=== PATIENT | male | born 1940 | race Caucasian/White ===

== ENCOUNTER 2023-09-14 19:15 | Inpatient (IN) | payer MEDICARE, SELFPAY ==
[2023-09-14 13:23] VITALS: BP 155/93
[2023-09-14 13:47] LABS: % Basophils 0.5 % (0-2); % Eosinophils 5.7 % (0-6); % Immature Granulocytes 0.2 % (0-0.5); % Lymphocytes 9.3 % (20.5-51.1); % Monocytes 6.3 % (1.7-9.3); Absolute Eosinophils 0.3 10^3/uL (0-0.7); Absolute Lymphocytes 0.4 10^3/uL (1.2-3.4); Absolute Monocytes 0.3 10^3/uL (0.1-0.6); Absolute Neutrophils 3.4 10^3/uL (1.4-6.5); Hemoglobin 8.4 g/dL (13.0-18.0); Mean Corp Hgb Conc. 32.3 g/dL (33.0-37.0); Mean Corpuscular Hgb 26.6 pg (27.0-31.0); Mean Corpuscular Volume 82.3 fL (80.0-94.0); Nucleated Red Blood Cells % 0 % (-); Red Blood Cell Count 3.16 10^6/uL (4.70-6.10); Red Cell Dist. Width 19.8 % (11.5-14.5); White Blood Cell Count 4.4 10^3/uL (4.8-10.8)
[2023-09-14 14:02] LABS: Platelet Count 75 10^3/uL (130-400)
[2023-09-14 14:06] LABS: ALT (SGPT) 22 U/L (0-50); AST (SGOT) 42 U/L (17-59); Albumin 3.6 g/dl (3.5-5.0); Alkaline Phosphatase 92 U/L (38-126); Blood Urea Nitrogen 83 mg/dl (9-20); Calcium 9.4 mg/dl (8.4-10.2); Carbon Dioxide 24 mmol/L (22-30); Chloride 104 mmol/L (98-107); Glucose 279 mg/dl (70-99); Potassium 4.8 mmol/L (3.5-5.1); Sodium 136 mmol/L (135-145); Total Bilirubin 0.8 mg/dl (0.2-1.3); eGFR 27.49
[2023-09-14 17:19] VITALS: BP 142/66
--- NOTE | 2023-09-14 17:27 | ED.GENMED ---
History of Present Illness
General
Chief Complaint: Weakness
Source: patient and spouse
Time Seen by Provider: 09/14/23 16:51
Travel History
Have you had any contact with someone who has COVID-19?: No
Do you have any symptoms of coronavirus? Fever > 100 degrees, chills, cough, shortness of breath, sore throat, loss of taste or smell, muscle aches, or headache?: No
History of Present Illness
History of Present Illness:
This patient is an 83-year-old male who states that he first noted yesterday afternoon that he cannot type on his phone because his right hand is not working well. He raises his right hand up and shows that he has difficulty extending at the wrist.
He denies numbness, tingling, focal weakness otherwise, chest pain, headache, neck pain, dyspnea, nausea, vomiting, or other complaints. Patient states that he has been eating and drinking as usual and denies other new complaints.
Past History
Past History
ED Past Medical History: CAD, HTN, Hypercholesterolemia, NIDDM, NV and Other (Arthritis, ulcerative colitis, chronic renal insufficiency, GI bleed)
ED Past Surgical History: Cardiac
Patient has exhibited threatening behavior?: No
Social History
Tobacco: Non-smoker
Alcohol: None
Drug: None
Personal:
Living: with family
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
Phy Exam
Physical Exam
Physical Exam:
GENERAL: Alert , in no apparent distress
EYE: pupils equal and reactive
NECK: Supple, no significant adenopathy.
ENT: o/p clr, mmm.
CARDIAC: Regular rate and rhythm .
LUNGS: Equal breath sounds bilaterally, no acute respiratory distress, fine rales noted
ABDOMEN: Soft, without focal tenderness, no r/g, no cvat
NEUROLOGICAL: Alert and oriented, no focal neuro deficits with the exception of right upper extremity radial nerve motor palsy AKA 'wrist drop', sensory intact
SKIN: Warm and dry, skin intact.
MUSCULOSKELETAL: Left-sided AKA, right lower extremity with 1-2+ lower extremity edema
PSYCH: Normal and appropriate interaction.
Course
Orders/Labs/Results
Orders:
Orders
09/14/23 13:25
CT Head W/o Iv Contrast Urgent
Comment:
Reason For Exam: right arm weakness x24hrs no pain
09/14/23 13:34
Complete Blood Count/With Diff Urgent
Comprehensive Metabolic Panel Urgent
09/14/23 17:27
0.9% Sodium Chloride 500 ml [Nss] 500 ml IV BOLUS
09/14/23 18:19
Splint [Braces/Immobilizers] As Directed
Type of Brace/Immobilizer: Splint
Other brace/immobilizer: velcro wrist
Location for Brace/Immobilizer: right wrist
Out of bed with brace/immobilizer: Yes
09/14/23 18:28
Admit/Transfer Patient As Directed
Co-Sign Provider:
Level of Care: Inpatient admission
Assign to:: Medical/Surgical
Physician / Group: payal carter
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
Expected length of stay greater than two midnights?: Yes
ELOS- Estimated Length of Stay in days: 4
I certify the patient meets the requirements for IP care: Yes
Code Status As Directed
Resuscitation Status: Full Code
09/14/23 18:38
NEPHROLOGY CONSULT Routine
Consulting Provider: Magda Dillon
Was physician already notified: Yes
Reason for consult: tamanna on ckd 3a
Abnormal Lab Results
09/14/23
13:34
WBC 4.4 L 10^3/uL
(4.8-10.8)
RBC 3.16 L 10^6/uL
(4.70-6.10)
Hgb 8.4 L g/dL
(13.0-18.0)
Hct 26.0 L %
(39.0-52.0)
MCH 26.6 L pg
(27.0-31.0)
MCHC 32.3 L g/dL
(33.0-37.0)
RDW 19.8 H %
(11.5-14.5)
Plt Count 75 L 10^3/uL
(130-400)
Absolute Lymphs (auto) 0.4 L 10^3/uL
(1.2-3.4)
Neutrophils % 78.0 H %
(42.2-75.2)
Lymphocytes % 9.3 L %
(20.5-51.1)
BUN 83 H mg/dl
(9-20)
Creatinine 2.3 H mg/dL
(0.7-1.3)
Glucose 279 H mg/dl
(70-99)
09/14/23 13:34
09/14/23 13:34
Vital Signs
Initial and Last Documented VS:
Initial Vital Signs
Temp Pulse Resp BP Pulse Ox
98.2 F 60 16 155/93 98
09/14/23 13:23 09/14/23 13:23 09/14/23 13:23 09/14/23 13:23 09/14/23 13:23
Last Documented Vital Signs
Temp Pulse Resp BP Pulse Ox
98.2 F 60 16 142/66 99
09/14/23 13:23 09/14/23 18:45 09/14/23 18:45 09/14/23 17:19 09/14/23 17:30
*Critical Care Note
Total Time (30-74mins, 75-104mins- exclusive of procedures): Not Applicable
Update Note
Update Note:
Patient presents to the Emergency Department with ___right wrist drop
Number and Complexity of Problems Addressed at the Encounter
� Chronic conditions affecting care: Chronic kidney disease, heart failure, diabetes, CAD
� Acute Exacerbation and/or Progression of Chronic Illness:
� Differential Diagnosis includes: But not limited to neuropathy, stroke, compression injury, etc.
Amount and/or Complexity of Data to be Reviewed and Analyzed
� I performed an independent evaluation of and my interpretation is:
EKG:
CT: Read by radiology NAD
Xrays:
Laboratory Studies: New mild thrombocytopenia, new renal insufficiency with a GFR decreased from baseline of 55-28 today
Other:
� Review of other/old records reveals: Patient's most recent hospitalization reviewed by me, left AKA performed at that time. Prior renal studies reviewed.
� Clinical information was obtained by an independent historian: who is at bedside
� Prescriptions/Medications Considered but not given:
� Further testing considered but not performed:
Risk of Complications and/or Morbidity or Mortality of Patient Management
� Social determinants of health affecting care:
� Discussion with other providers (PCP, Hospitalists, Consultants, etc):
� Escalation of care including admission/observation vs risk of discharge considered:
ED Attending Note
-
Portions of this chart may have been created with voice recognition software.� Occasional wrong word or��sound alike� substitutions may have occurred due to the inherent limitations of voice recognition software.
Discharge Plan
Departure
Patient Disposition: Admit
Date of Disposition: 09/14/23
Time of Disposition: 18:03
Admit to: Med/Surg
Presentation/result/management discussed w/ accepting MD/DO: Hospitalist
Condition: Fair
Discharge Problem:
Acute renal insufficiency
Prescriptions:
No Action
glimepiride 2 MG tablet
2 mg PO DAILY
pantoprazole 40 mg Tablet,Delayed Release (Dr/Ec)
40 mg PO DAILY
atorvastatin 80 MG tablet
80 mg PO QPM
Eliquis 5 MG tablet
5 mg PO BID
Folbic 2.5-25-2 mg Tablet
1 tab PO DAILY
carvedilol 3.125 mg Tablet
3.125 mg PO BID Qty: 60 0RF
amiodarone 200 mg tablet
200 mg PO DAILY
multivitamin Tablet
1 tab PO DAILY
insulin glargine [Lantus U-100 Insulin] 100 unit/mL Solution
15 unit SC DAILY@2029
mirtazapine 30 mg tablet
30 mg PO DAILY@2029
acetaminophen 325 mg Tablet
650 mg PO Q4H PRN (Reason: mild pain/fever)
bisacodyl 10 mg Suppository
10 mg ID DAILY PRN (Reason: no BM or MOM/lactulose ineffective)
bumetanide 1 mg Tablet
1 mg PO DAILY
fluticasone propionate 50 mcg/actuation [place],Suspension
1 spray INTRANASAL QPM
insulin lispro [Humalog KwikPen Insulin] 100 unit/mL Insulin Pen
0 - 12 sliding scale dose SC TID@0730,1230,1730
Rx Instructions:
if 71-150= 0 units; 151-200= 2 units; 201-250= 4 units; 251-300= 6 units; 301-350= 8 units; 351-400= 10 units; >400=12 units, call MD
pregabalin [Lyrica] 75 mg Capsule
75 mg PO TID
lactulose 20 gram/30 mL Solution
20 g PO HS PRN (Reason: Constipation)
naloxone [Narcan] 4 mg/actuation [place],Non-Aerosol
4 mg INTRANASAL Q2M PRN (Reason: constricted pupils,loss of consc,slow breathing)
fentanyl 25 mcg/hr patch 72 hour
1 patch transdermal Q72H
Patient Comments:
qpm
azathioprine 75 mg Tablet
75 mg PO DAILY
Referrals:
Shaquille Mata MD [Family Provider] -
Interventions
Interventions:
*Risk Screen - Suicide Last Done: 09/14/23 18:50
*General Assessment Last Done: 09/14/23 18:50
*Neglect/Abuse Screening Last Done: 09/14/23 18:50
ED- Fall Risk Assessment Last Done: 09/14/23 17:00
*ED COVID-19 Vaccine History Last Done: 09/14/23 13:23
ED- Cardiac Assessment Last Done: 09/14/23 17:00
ED- Neurological Assessment Last Done: 09/14/23 17:00
ED- Pulmonary Assessment Last Done: 09/14/23 17:00
Discharge Date and Time
Print Language: GUINEAN
--- NOTE | 2023-09-14 17:48 | HPS.HSE ---
Addendum entered and electronically signed by Itz Yusuf MD 09/14/23 18:43:
I saw and examined the patient.
The AUTOMOTIVE CONSULTANT or PA's note was reviewed and I agree with the note.
Comment: Plan of care discussed and will treat as acute kidney injury on chronic kidney disease presumptively in setting of possible hypovolemia from loop diuretic which will be held with also will hold Lyrica in the short-term and reduce dosing of
Eliquis during acute phase and glimepiride will await consult with nephrology/at this point suspect the right wrist drop possibly in relation to wound clinic time with resting extension and dependency with possible renal nerve injury will see how
this responds to treatment of his LENI I do not think there is a central cause either from his cervical spine or brain and we defer neurology input at this point. CT scan results of the head reviewed and discussed. Agree with placing on right wrist
splint. multiple comorbidities as outlined and discussed in treatment plan agreed on.
Original Note:
Family Physician
-
Family Physician: Shaquille Mata
Chief Complaint
-
Right wrist drop
History of Present Illness
83-year-old male from [facility] noticed yesterday 09/13/2023 but he was unable to type on his phone due to discoordination of his fingers. This morning he noticed he was unable to extend his wrist so he called his on the phone to visit
him. 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 He transfers with assist of 2 and slide board to wheelchair. He reports they have been repositioning him in bed last night he was lying on his left side apparently he slept 12
hours according to his wrist watch monitor. He was unsure if he slept on his actual wrist. He denies current pain in the wrist is able to lift both arms up to shoulder level as he is chronically limited with mobility bilateral shoulders. He is
right-handed. He denies any injury headache, blurred vision, numbness, tingling, chest pain, shortness of breath, cough, abdominal pain, nausea, vomiting, diarrhea, fever, chills
PMH paroxysmal A-fib S/P Medtronic PPM 04/16/2023 for tachybradycardia syndrome, hyponatremia, thrombocytopenia, anemia of chronic disease, chronic bilateral leg lymphedema, CAD /[place]? CABG, HLD, GERD, HX GI bleed, DM2, chronic LBBB, subdural hematoma
after mechanical fall, tiny old lacunar infarcts again noted in the right cindy and right Ginger/external capsule on ct head , chronic pain syndrome secondary to spinal stenosis on chronic opiate patch, anxiety, ulcerative colitis, chronic ambulatory
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
Medical History
Past Medical History
Past Medical History: Reports Other
Additional Past Medical History:
type II [place] secondary to demand ischemia 04/16/23
ASCVD
Paroxysmal Atrial Fibrillation
Ulcerative Colitis
DM-II
Chronic HFpEF
Chronic LE Lymphedema
CKD III
Hypertension
GERD
Bilateral Ankle Deformity (Acquired)
Past Surgical History: Reports Other
Additional Past Surgical History:
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
CABG x 4
PTCA with Stent x 2
DCCV
T&A
L EDILBERTO
Social History
Tobacco: Non-smoker
Alcohol: Occasional
Drug: None
Personal:
Living: Alf ([facility])
Employment: Retired
Family History
Family History: Not pertinent
Allergies / Home Medications
Allergies reflects when Allergies were last updated in [employer].
Home Medications with original date entered in [employer]
Allergy/Medication List:
Allergies
Allergy/AdvReac Type Severity Reaction Status Date / Time
Sulfa (Sulfonamide Allergy Hives Verified 09/14/23 13:25
Antibiotics)
sulfasalazine Allergy mother Verified 09/14/23 13:25
states
hives
Home Medications
glimepiride 2 mg tablet 2 mg PO DAILY diabetes 08/01/20
apixaban 5 mg tablet (Eliquis) 5 mg PO BID atrial fibrillation 03/30/23
atorvastatin 80 mg tablet 80 mg PO QPM High Cholesterol 03/30/23
pantoprazole 40 mg tablet,delayed release 40 mg PO DAILY Gastrointestinal Issue 03/30/23
folic acid-vit B6-vit B12 2.5 mg-25 mg-2 mg tablet (Folbic) 1 tab PO DAILY Supplement 04/16/23
carvedilol 3.125 mg tablet 3.125 mg PO BID #60 tabs 04/17/23
amiodarone 200 mg tablet 200 mg PO DAILY Arrhythmia 05/04/23
acetaminophen 325 mg tablet 650 mg PO Q4H PRN mild pain/fever 06/22/23
bisacodyl 10 mg rectal suppository 10 mg IA DAILY PRN no BM or MOM/lactulose ineffective 06/22/23
bumetanide 1 mg tablet 1 mg PO DAILY Fluid Retention/Swelling 06/22/23
fluticasone propionate 50 mcg/actuation nasal spray,suspension 1 spray intranasal QPM Allergies 06/22/23
insulin glargine 100 unit/mL subcutaneous solution (Lantus U-100 Insulin) 15 unit SC DAILY@2029 Diabetes 06/22/23
insulin lispro 100 unit/mL subcutaneous pen (Humalog KwikPen (U-100) Insulin) 0 - 12 sliding scale dose SC TID@0730,1230,1730 Diabetes 06/22/23
lactulose 20 gram/30 mL oral solution 20 g PO HS PRN Constipation 06/22/23
mirtazapine 30 mg tablet 30 mg PO DAILY@2030 Mental Health/Anxiety 06/22/23
multivitamin 1 tab PO DAILY Supplement 06/22/23
naloxone 4 mg/actuation nasal spray (Narcan) 4 mg intranasal Q2M PRN constricted pupils,loss of consc,slow breathing 06/22/23
pregabalin 75 mg capsule (Lyrica) 75 mg PO TID Pain 06/22/23
fentanyl 25 mcg/hr transdermal patch 1 patch transdermal Q72H Pain 06/24/23
azathioprine 75 mg tablet 75 mg PO DAILY 09/14/23
Review of Systems
-
History Source: Patient and Family (, daughter and son at bedside)
A 12 point ROS was completed and negative except as noted: Yes
Constitutional: Denies Fever, Weight Loss or Fatigue
EENT: Denies Sore Throat or Runny Nose
Respiratory: Denies Cough or Trouble Breathing
Cardiac: Denies Chest Pain, Diaphoresis, Palpitations or Syncope
Abdomen/GI: Denies Abdominal Pain, Nausea, Vomiting, Diarrhea or Constipated
: Denies Dysuria, Frequency, Flank Pain, Incontinence or Difficulty Voiding
Musculoskeletal: Reports Edema (Chronic +2 edema right lower extremity, left AKA); Denies Joint Pain
Skin: Denies Itching or Rash
Neurological: Reports Other (Right wrist drop); Denies Dizzy, Headache, Weakness or Numbness
Endocrine: Reports No Symptoms
Hematologic/Lymphatic: Reports No Symptoms
Psych: Reports Calm
Physical Exam
Vital Signs
Vital Signs
Temp Pulse Resp BP Pulse Ox
98.2 F 60 16 155/93 98
09/14/23 13:23 09/14/23 13:23 09/14/23 13:23 09/14/23 13:23 09/14/23 13:23
Physical Exam
General: Comfortable and Conversant; No Pain, Fever or Chills
HEENT: NormoCephalic, Anicteric, Moist mucous membranes, PERRLA, [place] Conjunctivae and No Ptosis
Respiratory: Clear; No Wheezes, Rales or Rhonchi
Cardiac: S1/S2, Peripheral Edema (Chronic right lower extremity +1-2 edema) and Other (Pacemaker present left chest wall); No Murmur, Rub or Gallop
Breast: Deferred by me
GI: Soft, Non Tender, Non Distended, Normal Bowel Sounds and No Hepatosplenomegaly
Rectal: Deferred by Provider
Genito-urinary: Deferred by me
Musculoskeletal: No Clubbing, No Cyanosis, Edema, Right Lower Extremity (Chronic +1-2) and Other (Left leg AKA, right wrist drop, chronic limited range of motion left and right arms to shoulder level, sensation intact to right arm, right hand); No
Edema, Left Upper Extremity or Edema, Right Upper Extremity
Skin: Warm, Dry and Other (Chronic right heel stage I ulcer with chronic offloading heel boot present on admission); No Rash
Neuro: AO x 3, Nonfocal/grossly intact, Cranial Nerves Intact and No Sensory Deficits; No Slurred Speech, Facial Droop or Tremors
Psych: Calm
Laboratory Results
-
09/14/23 13:34
09/14/23 13:34
Laboratory Results
Total Bilirubin 0.8 mg/dl (0.2-1.3) 09/14/23 13:34
AST 42 U/L (17-59) 09/14/23 13:34
ALT 22 U/L (0-50) 09/14/23 13:34
Alkaline Phosphatase 92 U/L (38-126) 09/14/23 13:34
Data Reviewed
-
CT Scan: Report Reviewed by me
Lab Data: Labs Reviewed by me
Impression/Plan
-
Impression/plan:
Admit to MedSurg
#Right radial nerve palsy unclear etiology
#chronic limited range of motion bilateral shoulders to shoulder level only
-Right wrist splint applied
-Consult PT/OT/case management
CT head: No acute intracranial abnormalities
Suspected tiny old lacunar infarcts again noted in the right cindy and right Ginger/external capsule
Diffuse cortical atrophy with nonspecific white matter changes
#LENI on CKD 3 A
#Hx orthostasis in Apr 2023 creat responded to IV fluids
Creat 2.3 /83 creat was1.3 June 29, 2023(CrCl approximately 43)
-Consult nephrology
-Hold Bumex
-IV NSS 500 cc given in ER
-Continue IV NSS 60 cc an hour x 1 L
-Reduce Eliquis to 2.5 mg twice daily
-BMP in a.m.
#Chronic stage I right heel ulcer
-Patient currently wearing offloading heel boot no open areas
#Chronic right lower extremity lymphedema
-Hold Bumex
#Hx CVA per CT head
#Hx subdural hematoma after mechanical fall
tiny old lacunar infarcts again noted in the right cindy and right Ginger/external capsule
-Continue statin, Eliquis at 2.5 mg twice daily
#Hx orthostatic hypotension/HTN
Monitor orthostatic vitals
-Continue carvedilol 3.125 mg p.o. twice daily with hold parameters
#Anemia of chronic disease�normocytic
Hgb 8.4 baseline appears 7.5-9.1
-No active bleeding
-Continue Folbic
#Acute on chronic thrombocytopenia
PLT 75 baseline appears 130-160 June 2023
#DM2 with hyperglycemia
BS 279
-Accu-Cheks with SSI, check HgbA1c
-Lantus 15 units subcu daily 8:30 PM
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
#phantom leg pain
-Continue Lyrica 75 mg p.o. 3 times daily
#Paroxysmal A-fib
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
-Continue amiodarone 200 mg daily
-Continue Eliquis decreased dose from 5 mg twice daily to 2.5 mg twice daily given LENI on CKD 3A
#CAD/[place]/CABG 2009
#Chronic LBBB
-Continue Coreg with hold parameters, statin
#HLD
-Continue statin
#Chronic pain syndrome secondary to spinal stenosis on chronic opiate patch
-Continue fentanyl patch, Lyrica
#GERD/Hx GI bleed
-Continue PPI
#Hx ulcerative colitis
-Continue azathioprine
#Anxiety
-Continue Remeron
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
PT/OT/case management consult
DVT prophylaxis
Continue HARD TILE SETTER Eliquis
Full code
[2023-09-14] MEDS: NSS 500 IV (18:03)
[2023-09-14 22:50] VITALS: BP 113/53; BMI 26.1
[2023-09-14] MEDS: REMERON 30 MG PO (23:28)
[2023-09-14] MEDS: COREG 3.125 MG PO (23:28)
[2023-09-14] MEDS: ELIQUIS 2.5 MG PO (23:29)
[2023-09-14] MEDS: NSS 1000 IV (23:29)
--- NOTE | 2023-09-14 23:30 | PTCARENOTE ---
Patient admitted to room 402-2. He was pulled over from the stretcher to the bed. He is unable to ambulate due to recent right AKA. Patient with a brace to his right lower arm , due to wrist drop, this was applied in the emergency room. Patient with
right heel relief shoe on. this was removed, dressings removed. There is a stage one (old wound healed) on his right lateral heel. Foam dressings were applied for protection. Patient wanted his shoe reapplied, also elevated right foot on pillow.
Wound ostomy consult ordered. Patient incontinent of large amounts of urine, condom cath applied, this did not work it easily come off. Bilateral groin with MASD, desenex powder applied. Left lower arm with a skin tear, cleaned and foam applied.
Turned q2 hours.
[2023-09-14 23:34] VITALS: BMI 26.1
--- NOTE | 2023-09-14 23:50 | W.CON.NEPH ---
Medical History
-
Chief Complaint: Right wrist drop
History of Present Illness:
83-year-old male with PMH of CKD, stage 3, who maintains a baseline creatinine of 1.2-1.3. He also has a history of paroxysmal atrial fibrillation, is chronically anticoagulated and is maintained on carvedilol for rate control as well as amiodarone.
He does have a history of diabetes for which he is managed on glimepiride and insulin. He has a history of chronic ulcerative colitis, which has been controlled on his Imuran therapy, who underwent left AKA for osteo in 06/2023 lives at [facility]
Lillian noticed yesterday 09/13/2023 but he was unable to type on his phone due to discoordination of his fingers. This morning he noticed he was unable to extend his wrist, he is wheelchair bound. He was unsure if he slept on his actual wrist during
sleep. He denies any injury headache, chest pain, shortness of breath, cough, abdominal pain, nausea, vomiting, fever, chills. c/o loose BMs chronically.
Cr noted at 2.3. Reportedly he has saturated depend on arrival to floor.
Past Medical History
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 CABG, HLD, GERD, HX GI bleed, DM2, chronic LBBB, subdural hematoma after
mechanical fall, tiny old lacunar infarcts again noted in the right cindy and right Ginger/external capsule on ct head , chronic pain syndrome secondary to spinal stenosis on chronic opiate patch, anxiety, ulcerative colitis, chronic ambulatory
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
Past Surgical History: Other (Left AKA secondary to diabetic osteo Jun 2023 Medtronic pacemaker 04/16/2023 tachybradycardia syndrome CABG x 4 PTCA with Stent x 2 DCCV T&A L EDILBERTO)
Social History
Tobacco: Non-Smoker
Alcohol: Occasional
Personal:
Living: Long-Term
Employment: Retired
Family History
no ckd
Family History: Not Pertinent
Allergies / Home Medications
Allergy/AdvReac Type Severity Reaction Status Date / Time
Sulfa (Sulfonamide Allergy Hives Verified 09/14/23 13:25
Antibiotics)
sulfasalazine Allergy mother Verified 09/14/23 13:25
states
hives
�Medication �Instructions �Recorded �Confirmed �Type
glimepiride 2 mg tablet 2 mg PO DAILY diabetes 08/01/20 09/14/23 History
apixaban 5 mg tablet (Eliquis) 5 mg PO BID atrial fibrillation 03/30/23 09/14/23 History
atorvastatin 80 mg tablet 80 mg PO QPM High Cholesterol 03/30/23 09/14/23 History
pantoprazole 40 mg tablet,delayed 40 mg PO DAILY Gastrointestinal 03/30/23 09/14/23 History
release Issue
folic acid-vit B6-vit B12 2.5 1 tab PO DAILY Supplement 04/16/23 09/14/23 History
mg-25 mg-2 mg tablet (Folbic)
carvedilol 3.125 mg tablet 3.125 mg PO BID #60 tabs 04/17/23 09/14/23 Rx
amiodarone 200 mg tablet 200 mg PO DAILY Arrhythmia 05/04/23 09/14/23 History
acetaminophen 325 mg tablet 650 mg PO Q4H PRN mild pain/fever 06/22/23 09/14/23 History
bisacodyl 10 mg rectal suppository 10 mg ND DAILY PRN no BM or 06/22/23 09/14/23 History
MOM/lactulose ineffective
bumetanide 1 mg tablet 1 mg PO DAILY Fluid 06/22/23 09/14/23 History
Retention/Swelling
fluticasone propionate 50 1 spray intranasal QPM Allergies 06/22/23 09/14/23 History
mcg/actuation nasal
spray,suspension
insulin glargine 100 unit/mL 15 unit SC DAILY@2029 Diabetes 06/22/23 09/14/23 History
subcutaneous solution (Lantus
U-100 Insulin)
insulin lispro 100 unit/mL 0 - 12 sliding scale dose SC 06/22/23 09/14/23 History
subcutaneous pen (Humalog KwikPen TID@0730,1230,1730 Diabetes
(U-100) Insulin)
lactulose 20 gram/30 mL oral 20 g PO HS PRN Constipation 06/22/23 09/14/23 History
solution
mirtazapine 30 mg tablet 30 mg PO DAILY@2029 Mental 06/22/23 09/14/23 History
Health/Anxiety
multivitamin 1 tab PO DAILY Supplement 06/22/23 09/14/23 History
naloxone 4 mg/actuation nasal 4 mg intranasal Q2M PRN 06/22/23 09/14/23 History
spray (Narcan) constricted pupils,loss of
consc,slow breathing
pregabalin 75 mg capsule (Lyrica) 75 mg PO TID Pain 06/22/23 09/14/23 History
fentanyl 25 mcg/hr transdermal 1 patch transdermal Q72H Pain 06/24/23 09/14/23 History
patch
azathioprine 75 mg tablet 75 mg PO DAILY 09/14/23 09/14/23 History
Review of Systems
-
All complete 12point ROS have been inquired and found negative other than stated in HPI
Physical Exam
Vital Signs
Vital Signs
Temp Pulse Resp BP Pulse Ox
97.6 F 62 20 113/53 99
09/14/23 22:50 09/14/23 23:28 09/14/23 22:50 09/14/23 23:28 09/14/23 22:50
Lab Results
WBC 4.4 10^3/uL (4.8-10.8) L 09/14/23 13:34
RBC 3.16 10^6/uL (4.70-6.10) L 09/14/23 13:34
Hgb 8.4 g/dL (13.0-18.0) L 09/14/23 13:34
Hct 26.0 % (39.0-52.0) L 09/14/23 13:34
Plt Count 75 10^3/uL (130-400) L 09/14/23 13:34
Sodium 136 mmol/L (135-145) 09/14/23 13:34
Potassium 4.8 mmol/L (3.5-5.1) 09/14/23 13:34
Chloride 104 mmol/L (98-107) 09/14/23 13:34
Carbon Dioxide 24 mmol/L (22-30) 09/14/23 13:34
BUN 83 mg/dl (9-20) H 09/14/23 13:34
Creatinine 2.3 mg/dL (0.7-1.3) H 09/14/23 13:34
eGFR 27.49 09/14/23 13:34
Glucose 279 mg/dl (70-99) H 09/14/23 13:34
Calcium 9.4 mg/dl (8.4-10.2) 09/14/23 13:34
Albumin 3.6 g/dl (3.5-5.0) 09/14/23 13:34
CT head:
IMPRESSION:
No acute intracranial abnormalities.
Suspected tiny old lacunar infarcts again noted, as detailed above.
Findings again seen compatible with diffuse cortical atrophy with nonspecific white matter changes as described above.
Physical Exam
General: Awake, Alert, Oriented, AOx3, No Distress and Nontoxic
HEENT: EOMI and Anicteric
Respiratory: Clear
Cardiac: S1/S2 and Regular Rate/Rhythm
Abdomen: Soft, Nontender and Nondistended
Musculoskeletal: Edema (rt LE 3+edema-chronic)
Skin: No Rash
Neuro: Nonfocal/Grossly Intact and Other (right wrist in splint, moves his finger)
Psych: Mood/afflect pleasant, Insight/judgement good and Appropriate
Assessment/Plan
-
Assessment:
Right radial nerve palsy unclear etiology
chronic limited range of motion bilateral shoulders to shoulder level only
LENI on CKD 3 A baseline cr 1.2-1.3
Chronic stage I right heel ulcer
Chronic right lower extremity lymphedema
Hx CVA per CT head
Hx subdural hematoma after mechanical fall
Hx orthostatic hypotension/HTN
Anemia of chronic disease
Acute on chronic thrombocytopenia
DM2 with hyperglycemia
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
phantom leg pain
Paroxysmal A-fib
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
CAD/[place]/CABG 2009
Chronic LBBB
HLD
Chronic pain syndrome secondary to spinal stenosis on chronic opiate patch
GERD/Hx GI bleed
Hx ulcerative colitis- azathioprine
Anxiety
Chronic ambulatory dysfunction with chronic foot and ankle deformities
Plan:
A/w right wrist drop and found to have LENI
LENI-check urine studies, follow bladder scan
measure UOP, suspect non oliguric
hold diuretics for now
meds changed renal dosing, avoid nephrotoxins
ok to cont IVF , check CK
check renal US if cr remains high
BP are stable
insulin for hyperglycemia
chr anemia -hb seem stable check fe studies
new thrombocytopenia-monitor
d/w pt and nursing
Data Reviewed
-
Radiology: Report Reviewed by me
Labs: Labs Reviewed by me, Discussed with Nurse and Discussed with Patient
[2023-09-14 23:55] LABS: Glucose - Point of Care 314 mg/dl (70-99)
[2023-09-15] MEDS: DURAGESIC 25 MCG/HR PATCH 1 PATCH TRANSDERM (00:11)
[2023-09-15] MEDS: LYRICA 75 MG PO ×2 (00:11→09:18)
[2023-09-15] MEDS: LANTUS 0.149999999999999994 UNITS SC ×2 (00:24→21:32)
[2023-09-15 01:13] LABS: Creatine Phosphokinase 37 U/L (55-170)
[2023-09-15 03:28] LABS: Urine Albumin Negative (Neg - Trace); Urine Bilirubin Negative (Negative); Urine Character Slightly Cloudy (Clear); Urine Color Yellow; Urine Glucose Negative (Negative); Urine Ketone Negative (Negative); Urine Leukocyte 2+ (Negative); Urine Nitrite Negative (Negative); Urine Occult Blood Negative (Negative); Urine Urobilinogen Negative (Neg - 1+)
[2023-09-15 03:50] LABS: Urine Yeast Moderate (Negative)
[2023-09-15 03:51] LABS: Urine Bacteria Many (Negative); Urine Squamous Cell >30 /LPF (Few); Urine White Cell >100 /HPF (0-5)
[2023-09-15 03:52] LABS: Urine Mucus Moderate
[2023-09-15 06:00] VITALS: BMI 26.3
[2023-09-15 06:11] LABS: % Basophils 0.3 % (0-2); % Eosinophils 10.1 % (0-6); % Lymphocytes 16.6 % (20.5-51.1); % Monocytes 9.8 % (1.7-9.3); % Neutrophils 63.2 % (42.2-75.2); Absolute Eosinophils 0.3 10^3/uL (0-0.7); Absolute Lymphocytes 0.5 10^3/uL (1.2-3.4); Absolute Monocytes 0.3 10^3/uL (0.1-0.6); Absolute Neutrophils 1.9 10^3/uL (1.4-6.5); Hematocrit 22.1 % (39.0-52.0); Mean Corp Hgb Conc. 31.7 g/dL (33.0-37.0); Mean Corpuscular Hgb 26.2 pg (27.0-31.0); Mean Corpuscular Volume 82.8 fL (80.0-94.0); Nucleated Red Blood Cells % 0 % (-); Platelet Count 67 10^3/uL (130-400); Red Blood Cell Count 2.67 10^6/uL (4.70-6.10); Red Cell Dist. Width 19.6 % (11.5-14.5); White Blood Cell Count 3.1 10^3/uL (4.8-10.8)
[2023-09-15 06:33] LABS: Urine Sodium 51 mmol/L (30-90)
[2023-09-15 06:35] LABS: Blood Urea Nitrogen 79 mg/dl (9-20); Carbon Dioxide 25 mmol/L (22-30); Chloride 107 mmol/L (98-107); Estimated Creatinine Clearance 23 ml/min; Glucose 174 mg/dl (70-99); Iron 33 ug/dl (49-181); Potassium 3.8 mmol/L (3.5-5.1); Sodium 138 mmol/L (135-145); eGFR 27.49
[2023-09-15 06:46] LABS: Percent Saturation 10 % (20-50); Total Iron Binding Capacity 303 ug/dl (261-462)
[2023-09-15 08:06] VITALS: BP 111/50
[2023-09-15 08:33] LABS: Protein/creatinine Ratio 0.5; Urine Protein 18 mg/dl
[2023-09-15 08:36] LABS: Glycohemoglobin (HgbA1c) 8.1 % (4.0-5.6)
[2023-09-15 08:50] LABS: Glucose - Point of Care 147 mg/dl (70-99)
[2023-09-15] MEDS: NOVOLOG FLEXPEN-LOW RESISTANCE SC (08:53)
[2023-09-15] MEDS: FOLTX 1 TABLET PO (09:17)
[2023-09-15] MEDS: IMURAN 75 MG PO (09:17)
[2023-09-15] MEDS: COREG 3.125 MG PO ×2 (09:17→21:25)
[2023-09-15] MEDS: ELIQUIS 2.5 MG PO ×2 (09:17→21:26)
[2023-09-15] MEDS: THERAGRAN 1 TABLET PO (09:18)
[2023-09-15] MEDS: PROTONIX 40 MG PO (09:18)
[2023-09-15] MEDS: PACERONE 200 MG PO (09:18)
[2023-09-15] MEDS: DESENEX/MITRAZOL/ZEASORB 1 APPLIC TOPICAL ×2 (09:19→21:33)
--- NOTE | 2023-09-15 10:06 | W.PN.HOSP.TC ---
Addendum entered and electronically signed by Itz Yusuf MD 09/15/23 14:06:
The presentation of what appears to be now pancytopenia apparently is new the patient has been on azathioprine for ulcerative colitis for some time in addition to noting iron deficiency which will be repleted with iron infusions I will ask
hematology input in regards to pancytopenia and hold Imuran
Original Note:
Today's Communication/Plan
-
Continue fluids as per Nephrology
With creatinine still elevated after IV hydration will obtain renal and bladder ultrasound
Urine infected unclear whether symptomatic
Will place on empiric ceftriaxone while awaiting culture results
Start iron infusions for chronic anemia and iron deficiency
Assessment / Plan
Assessment / Plan
#Right radial nerve palsy unclear etiology/somewhat better this morning although disquiet extension still
#chronic limited range of motion bilateral shoulders to shoulder level only
-Right wrist splint applied
-Consult PT/OT/case management
CT head: No acute intracranial abnormalities
Suspected tiny old lacunar infarcts again noted in the right cindy and right Ginger/external capsule
Diffuse cortical atrophy with nonspecific white matter changes
#LENI on CKD 3 A
#Hx orthostasis in Apr 2023 creat responded to IV fluids
Creat 2.3 /83 creat was1.3 June 29, 2023(CrCl approximately 43)
-Consult nephrology
-Hold Bumex
-IV NSS 500 cc given in ER
-Continue IV NSS 60 cc an hour x 1 L
-Reduce Eliquis to 2.5 mg twice daily
-BMP in a.m./obtain renal and bladder ultrasound
Abnormal urinalysis with many bacteria
-Unclear whether symptomatic
-Underlying dementia and custodial was not in diapers mostly
-Will place on empiric ceftriaxone while awaiting culture results
-Check renal bladder ultrasound
#Chronic stage I right heel ulcer
-Patient currently wearing offloading heel boot no open areas
#Chronic right lower extremity lymphedema
-Hold Bumex
#Hx CVA per CT head
#Hx subdural hematoma after mechanical fall
tiny old lacunar infarcts again noted in the right cindy and right Ginger/external capsule
-Continue statin, Eliquis at 2.5 mg twice daily
#Hx orthostatic hypotension/HTN
Monitor orthostatic vitals
-Continue carvedilol 3.125 mg p.o. twice daily with hold parameters
#Anemia of chronic disease�normocytic
Hgb 8.4 baseline appears 7.5-9.1>> 7.0
-No active bleeding
-All iron panel levels depressed will treat with iron
-Continue Folbic
#Acute on chronic thrombocytopenia
PLT 75 baseline appears 130-160 June 2023
#DM2 with hyperglycemia
BS 279
-Accu-Cheks with SSI, check HgbA1c
-Lantus 15 units subcu daily 8:30 PM
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
#phantom leg pain
-Continue Lyrica 75 mg p.o. 3 times daily
#Paroxysmal A-fib
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
-Continue amiodarone 200 mg daily
-Continue Eliquis decreased dose from 5 mg twice daily to 2.5 mg twice daily given LENI on CKD 3A
#CAD/[place]/CABG 2009
#Chronic LBBB
-Continue Coreg with hold parameters, statin
#HLD
-Continue statin
#Chronic pain syndrome secondary to spinal stenosis on chronic opiate patch
-Continue fentanyl patch, Lyrica
#GERD/Hx GI bleed
-Continue PPI
#Hx ulcerative colitis
-Continue azathioprine
#Anxiety
-Continue Remeron
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
PT/OT/case management consult
DVT prophylaxis
Continue [employer] Eliquis
Full code
Anticipated Discharge: 24 - 48 hours
Subjective/Interval History
-
Date of Service: September 15, 2023
Through Dorina Winter Seems to be able to use his right hand as watermelon feelings of weakness with a fork using his right hand continue difficulties and extending his right wrist but able to flex without difficulty. Has right wrist immobilizer in
place. Which I loosened during exam
Objective Data
-
Labs:
Laboratory Results
09/15/23
05:06
WBC 3.1 L
Hgb 7.0 L
Hct 22.1 L
Plt Count 67 L
Sodium 138
Potassium 3.8
Chloride 107
Carbon Dioxide 25
BUN 79 H
Creatinine 2.3 H
Glucose 174 H
Calcium 9.0
Vital Signs:
Vital Signs
Temp Pulse Resp BP Pulse Ox
98.2 F 61 18 111/50 97
09/15/23 08:06 09/15/23 08:06 09/15/23 08:06 09/15/23 08:06 09/15/23 08:06
I&O
09/14/23 09/15/23 09/16/23
06:59 06:59 06:59
Output Total 300 / 300
Balance -300 / -300
Review of Systems
-
Unable to obtain full review of systems at this time due to: Dementia
History Source: Patient and Family (Spoke to spouse at bedside)
Constitutional: Denies Fever
Respiratory: Reports No Symptoms
Cardiac: Reports No Symptoms
Abdomen/GI: Reports No Symptoms
Physical Exam
-
General: Well Nourished
HEENT: Normocephalic
Respiratory: Clear to Auscultation
Cardiac: Irregular Rhythm
GI: Soft and Nontender
Genito-urinary: No Costovertebral Tender
Musculoskeletal: Edema, Right Upper Extrem (Right wrist immobilizer in place that was loosened on exam and has difficulty still extending his right wrist)
Neuro: Awake
Psych: Calm
Data Reviewed
-
Total Time Spent with Patient (in minutes): 56
CT Scan: Report Reviewed by me (Urine CT imaging.)
Labs: Labs Reviewed by me (Urinalysis showed many bacteria/white count stable hemoglobin down to 7.0 possibly dilutional/also with iron deficiency noted on panel)
[2023-09-15 11:35] LABS: Glucose - Point of Care 227 mg/dl (70-99)
--- NOTE | 2023-09-15 11:41 | WOUNDNOTE ---
R HEEL PHOTO FLASH
--- NOTE | 2023-09-15 11:42 | WOUNDNOTE ---
[facility] RN note: Patient admitted with acute renal insufficiency.
See H&P for complete history.
PMH:NIDDM, R AKA, PM, CAD, HTN,TX,CHF, A fib, GI bleed.
Wound Location and type/assessment: Patient admitted with: L heel stage 1 PI, non blanchable red. Uploaded picture with wrong location on 2nd picture. L medial ankle with blanchable redness. Patient turned self in bed, sacrum is intact. Stump is
intact. L arm with small skin tear, adaptic and foam in use. at bedside states he has been at [facility] and was using a Prevalon boot to L heel. Gets out of bed with Carina lift or slide board to wheelchair. Has a Globoped heel lift shoe at bedside
to use when oob.
Appetite: Excellent.
Pressure redistribution devices in place: On [employer]a bed, brought in air overlay, asked nurse Libia to apply when able.
Plan: Applied foams to L heel and ankles. Called [employer] for TruVue lite boot and applied to foot. Can take upon discharge.
Will confirm orders with hospitalist and update nurse. Updated care plan and will follow as needed.
Note to case management of equipment requested for discharge:none
[2023-09-15] MEDS: NOVOLOG FLEXPEN-LOW RESISTANCE 2 UNITS SC (12:15)
[2023-09-15] MEDS: STERILE WATER FOR INJECTION 10 ML IV (12:16)
[2023-09-15] MEDS: ROCEPHIN 1000 MG IV (12:16)
[2023-09-15 13:40] VITALS: BP 104/57; PULSE 60; PULSE 61; O2SAT 97
--- NOTE | 2023-09-15 13:56 | W.PN.NEPH.PH ---
Today's Communication / Plan
-
see plan
Assessment/Plan
-
Assessment:
Right radial nerve palsy unclear etiology
chronic limited range of motion bilateral shoulders to shoulder level only
LENI on CKD 3 A baseline cr 1.2-1.3
Chronic stage I right heel ulcer
Chronic right lower extremity lymphedema
Hx CVA per CT head
Hx subdural hematoma after mechanical fall
Hx orthostatic hypotension/HTN
Anemia of chronic disease
Acute on chronic thrombocytopenia
DM2 with hyperglycemia
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
phantom leg pain
Paroxysmal A-fib
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
CAD/[place]/CABG 2009
Chronic LBBB
HLD
Chronic pain syndrome secondary to spinal stenosis on chronic opiate patch
GERD/Hx GI bleed
Hx ulcerative colitis- azathioprine
Anxiety
Chronic ambulatory dysfunction with chronic foot and ankle deformities
Plan:
A/w right wrist drop and found to have LENI
LENI-UA ?UTI, follow bladder scan
unable to get UOP measured due to U incontinence
cr no change pending renal US
hold diuretics for now
wean off IVF today
meds adjust renal dosing, avoid nephrotoxins
BP are stable
[id number] heme eval , on Imuran-may need to be held
afib on Eliquis too
chr anemia worsening fe def noted, IV fe course
d/w pt and primary
-
-
Date of Service: September 15, 2023
CC / HPI / ROS
-
Chief Complaint:
LENI
History of Present Illness:
cr no change at 2.3, UOP not measured due to incontinence
BP stable, plt decreasing 67k
hb down to 7
Review of Systems:
no cp or sob
no other complaints
no n/v
Labs
-
Labs:
WBC 3.1 10^3/uL (4.8-10.8) L 09/15/23 05:06
RBC 2.67 10^6/uL (4.70-6.10) L 09/15/23 05:06
Hgb 7.0 g/dL (13.0-18.0) L 09/15/23 05:06
Hct 22.1 % (39.0-52.0) L 09/15/23 05:06
Plt Count 67 10^3/uL (130-400) L 09/15/23 05:06
Sodium 138 mmol/L (135-145) 09/15/23 05:06
Potassium 3.8 mmol/L (3.5-5.1) 09/15/23 05:06
Chloride 107 mmol/L (98-107) 09/15/23 05:06
Carbon Dioxide 25 mmol/L (22-30) 09/15/23 05:06
BUN 79 mg/dl (9-20) H 09/15/23 05:06
Creatinine 2.3 mg/dL (0.7-1.3) H 09/15/23 05:06
eGFR 27.49 09/15/23 05:06
Glucose 174 mg/dl (70-99) H 09/15/23 05:06
Calcium 9.0 mg/dl (8.4-10.2) 09/15/23 05:06
Albumin 3.6 g/dl (3.5-5.0) 09/14/23 13:34
Physical Exam
-
Vital Signs:
Vital Signs
Temp Pulse Resp BP Pulse Ox
98.2 F 61 18 111/50 97
09/15/23 08:06 09/15/23 08:06 09/15/23 08:06 09/15/23 08:06 09/15/23 08:06
Cardiovascular:: Regular rate and rhythm
Lung Excursion:: Normal (decreased)
Abdomen:: Nontender and Soft
Extremity Edema:: +2: Right:
Cespedes Catheter: No
Other Findings::
left AKA
[2023-09-15] MEDS: FERRLECIT 110 MG IV (14:18)
--- NOTE | 2023-09-15 14:20 | CON.ONC ---
Documented by User: FIDEL Pressley 09/15/23 15:14
Impression
Impression
Anemia of chronic disease
Acute kidney injury (baseline Creat 1.2-1.3)
Chronic renal insufficiency, CKD3
Ulcerative colitis on chronic Azathioprine
Immunosuppression
Chronic inflammation
Pancytopenia
Acute on chronic thrombocytopenia
Iron deficiency anemia
Urinalysis with many bacteria
Plan
Plan
/ WBC 3.1, Hgb 7, Hct 22.1, PLT 67, ANC 1.9
CBC with diff daily
Transfuse as needed to maintain Hgb >7, PLT >20
Continue Azathioprine, monitor counts
patient has had history of intermittent thrombocytopenia, patient is not neutropenic
Repletion of iron
Nephrology following
Continue Eliquis 2.5mg BID
Supportive care
Patient History
History of Present Illness
Antoine Garcia is an 83 year old male with extensive past medical history. He is on chronic Azathioprine for history of UC as well as Eliquis for hx afib. He is a resident of [facility]. He noticed on 09/12 that he was unable to type on his phone
keyboard and and unable to move his right wrist. He presented with acute kidney injury with Creatinine of 2.3 (baseline Creatinine 1.2-1.3). Urinalysis with many bacteria. We are consulted for acute pancytopenia on Azathioprine.
Past-Medical/Surgical History
Paroxysmal A-fib (Eliquis)
Medtronic PPM (04/16/2023)
Hx tachybradycardia syndrome
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
Thrombocytopenia
Anemia of chronic disease
CAD, CABG
Hyperlipidemia
GERD
Hx GI bleed
DM2; A1c 8.0%
Chronic pain syndrome; spinal stenosis
Chronic use of opiate patch
Ulcerative colitis
Ambulatory dysfunction
CKD3a
Patient Medication
�Medication �Instructions �Recorded �Confirmed �Last Taken �Type
glimepiride 2 mg tablet 2 mg PO DAILY diabetes 08/01/20 09/14/23 06/22/23 08:30 History
apixaban 5 mg tablet (Eliquis) 5 mg PO BID atrial fibrillation 03/30/23 09/14/23 06/20/23 18:30 History
atorvastatin 80 mg tablet 80 mg PO QPM High Cholesterol 03/30/23 09/14/23 06/22/23 20:30 History
pantoprazole 40 mg tablet,delayed 40 mg PO DAILY Gastrointestinal 03/30/23 09/14/23 06/22/23 08:30 History
release Issue
folic acid-vit B6-vit B12 2.5 1 tab PO DAILY Supplement 04/16/23 09/14/23 06/22/23 08:30 History
mg-25 mg-2 mg tablet (Folbic)
carvedilol 3.125 mg tablet 3.125 mg PO BID #60 tabs 04/17/23 09/14/23 06/23/23 08:30 Rx
amiodarone 200 mg tablet 200 mg PO DAILY Arrhythmia 05/04/23 09/14/23 06/23/23 08:30 History
acetaminophen 325 mg tablet 650 mg PO Q4H PRN mild pain/fever 06/22/23 09/14/23 06/22/23 12:02 History
bisacodyl 10 mg rectal suppository 10 mg TX DAILY PRN no BM or 06/22/23 09/14/23 Unknown History
MOM/lactulose ineffective
bumetanide 1 mg tablet 1 mg PO DAILY Fluid 06/22/23 09/14/23 06/22/23 08:30 History
Retention/Swelling
fluticasone propionate 50 1 spray intranasal QPM Allergies 06/22/23 09/14/23 06/22/23 20:30 History
mcg/actuation nasal
spray,suspension
insulin glargine 100 unit/mL 15 unit SC DAILY@2030 Diabetes 06/22/23 09/14/23 06/22/23 20:30 History
subcutaneous solution (Lantus
U-100 Insulin)
insulin lispro 100 unit/mL 0 - 12 sliding scale dose SC 06/22/23 09/14/23 06/22/23 17:30 History
subcutaneous pen (Humalog KwikPen TID@0730,1230,1730 Diabetes
(U-100) Insulin)
lactulose 20 gram/30 mL oral 20 g PO HS PRN Constipation 06/22/23 09/14/23 Unknown History
solution
mirtazapine 30 mg tablet 30 mg PO DAILY@2029 Mental 06/22/23 09/14/23 06/22/23 20:30 History
Health/Anxiety
multivitamin 1 tab PO DAILY Supplement 06/22/23 09/14/23 06/22/23 08:30 History
naloxone 4 mg/actuation nasal 4 mg intranasal Q2M PRN 06/22/23 09/14/23 Unknown History
spray (Narcan) constricted pupils,loss of
consc,slow breathing
pregabalin 75 mg capsule (Lyrica) 75 mg PO TID Pain 06/22/23 09/14/23 06/22/23 20:30 History
fentanyl 25 mcg/hr transdermal 1 patch transdermal Q72H Pain 06/24/23 09/14/23 06/21/23 20:30 History
patch
azathioprine 75 mg tablet 75 mg PO DAILY ulcerative colitis 09/14/23 09/14/23 Unknown History
Active Medications
Generic Name Dose Route Start Last Admin
Trade Name Freq PRN Reason Stop Dose Admin
Acetaminophen 650 mg 09/14/23 22:28
Acetaminophen 325 Mg Tablet PO 10/12/23 22:27
Q4HPRN PRN
mild pain/EWING/temp> 100.4F
Amiodarone HCl 200 mg 09/15/23 08:00 09/15/23 09:18
Amiodarone 200 Mg Tablet PO 10/13/23 07:59 200 mg
DAILY CIPRIANO Administration
Apixaban 2.5 mg 09/14/23 22:28 09/15/23 09:17
Apixaban (Eliquis) 2.5 Mg Tablet PO 10/12/23 22:27 2.5 mg
BID CIPRIANO Administration
Atorvastatin Calcium 80 mg 09/15/23 18:00
Atorvastatin (Lipitor) 80 Mg Tablet PO 10/13/23 17:59
QPM CIPRIANO
Azathioprine 75 mg 09/15/23 08:00 09/15/23 09:17
Azathioprine 50 Mg Tablet PO 10/13/23 07:59 75 mg
DAILY CIPRIANO Administration
Bisacodyl 10 mg 09/14/23 22:28
Bisacodyl 10 Mg Rectal Suppository RECTAL 10/12/23 22:27
DAILYPRN PRN
no BM or MOM/lactulose ineffec
Carvedilol 3.125 mg 09/14/23 22:28 09/15/23 09:17
Carvedilol 3.125 Mg Tablet PO 10/12/23 22:27 3.125 mg
BID CIPRIANO Administration
Ceftriaxone Sodium 1,000 mg 09/15/23 12:00 09/15/23 12:16
Ceftriaxone 1000 Mg / 10 Ml Vial IV 1,000 mg
Q24H CIPRIANO Administration
Dextrose 12.5 grams 09/14/23 22:28
Dextrose 50% (0.5 Grams/Ml) 50 Ml Syringe IV 10/12/23 22:27
[id number] PRN
hypoglycemia
Protocol
Fentanyl 1 patch 09/14/23 23:00 09/15/23 00:11
Fentanyl 25 Mcg/Hr Patch TRANSDERM 09/28/23 22:59 1 patch
Q72H CIPRIANO Administration
Folic Acid 1 tablet 09/15/23 08:00 09/15/23 09:17
Folbic (Same As Foltx) PO 10/13/23 07:59 1 tablet
DAILY CIPRIANO Administration
Glucagon 1 mg 09/14/23 22:28
Glucagon 1 Mg Vial IM 10/12/23 22:27
PRN PRN
hypoglycemia
Protocol
Sodium Chloride 1,000 mls @ 60 mls/hr 09/14/23 22:28 09/14/23 23:29
Nss IV 09/15/23 15:07 1,000 mls
.[id number] CIPRIANO Administration
Insulin Glargine 15 units/ 0.15 mls @ 0 mls/hr 09/14/23 23:00 09/15/23 00:24
Device SC 10/12/23 22:59 0.15 mls
DAILY@2000 CIPRIANO Administration
As Directed
Ferric Sodium Gluconate 110 mls @ 110 mls/hr 09/15/23 14:00
Complex 125 mg/ Sodium IV 09/19/23 14:59
Chloride DAILY@1400 CIPRIANO
Insulin Aspart 0 units 09/15/23 07:30 09/15/23 12:15
Insulin Aspart Low Resistance 300 Units/3 Ml Pen.Injctr SC 10/13/23 07:29 2 units
AC CIPRIANO Administration
Protocol
Lactulose 20 grams 09/14/23 22:28
Lactulose Solution (20 Grams/30 Ml) 30 Ml Cup PO 10/12/23 22:27
HS PRN
Constipation
Miconazole Nitrate 0 applic 09/15/23 08:00 09/15/23 09:19
Miconazole Powder Bottle TOPICAL 10/13/23 07:59 1 applic
BID CIPRIANO Administration
Mirtazapine 30 mg 09/14/23 22:28 09/14/23 23:28
Mirtazapine 30 Mg Tablet PO 10/12/23 22:27 30 mg
DAILY@2030 CIPRIANO Administration
Multivitamins Therapeutic 1 tablet 09/15/23 08:00 09/15/23 09:18
Multivitamin Tablet PO 10/13/23 07:59 1 tablet
DAILY CIPRIANO Administration
Pantoprazole Sodium 40 mg 09/15/23 08:00 09/15/23 09:18
Pantoprazole 40 Mg Delayed Release Tablet PO 10/13/23 07:59 40 mg
DAILY CIPRIANO Administration
Patch Removal 1 patch 09/14/23 23:00 09/15/23 00:12
Remove Fentanyl Patch REMOVE 09/28/23 22:59 1 patch
Q72H CIPRIANO Administration
Pregabalin 50 mg 09/15/23 20:00
Pregabalin 75 Mg Capsule PO 10/13/23 19:59
BID CIPRIANO
Sodium Chloride 0 flush 09/14/23 23:00
Sodium Chloride 0.9% (Flush) Syringe IV 10/12/23 22:59
PER PROTOCOL CIPRIANO
Sterile Water 10 ml 09/15/23 12:00 09/15/23 12:16
Sterile Water For Injection 10 Ml Vial IV 10/13/23 11:59 10 ml
Q24H CIPRIANO Administration
Physical Exam
Labs
Lab Results
WBC 3.1 10^3/uL (4.8-10.8) L 09/15/23 05:06
RBC 2.67 10^6/uL (4.70-6.10) L 09/15/23 05:06
Hgb 7.0 g/dL (13.0-18.0) L 09/15/23 05:06
Hct 22.1 % (39.0-52.0) L 09/15/23 05:06
MCV 82.8 fL (80.0-94.0) 09/15/23 05:06
MCH 26.2 pg (27.0-31.0) L 09/15/23 05:06
MCHC 31.7 g/dL (33.0-37.0) L 09/15/23 05:06
RDW 19.6 % (11.5-14.5) H 09/15/23 05:06
Plt Count 67 10^3/uL (130-400) L 09/15/23 05:06
MPV Not Reportable 09/15/23 05:06
Abs Immat Gran (auto) 0.0 10^3/uL (0-0.05) 09/15/23 05:06
Absolute Neuts (auto) 1.9 10^3/uL (1.4-6.5) 09/15/23 05:06
Absolute Lymphs (auto) 0.5 10^3/uL (1.2-3.4) L 09/15/23 05:06
Absolute Monos (auto) 0.3 10^3/uL (0.1-0.6) 09/15/23 05:06
Absolute Eos (auto) 0.3 10^3/uL (0-0.7) 09/15/23 05:06
Absolute Basos (auto) 0.0 10^3/uL (0-0.2) 09/15/23 05:06
Immature Gran % 0.0 % (0-0.5) 09/15/23 05:06
Neutrophils % 63.2 % (42.2-75.2) 09/15/23 05:06
Lymphocytes % 16.6 % (20.5-51.1) L 09/15/23 05:06
Monocytes % 9.8 % (1.7-9.3) H 09/15/23 05:06
Eosinophils % 10.1 % (0-6) H 09/15/23 05:06
Basophils % 0.3 % (0-2) 09/15/23 05:06
Creatinine 2.3 mg/dL (0.7-1.3) H 09/15/23 05:06
Vital Signs
Vital Signs
Temp Pulse Resp BP Pulse Ox
98.2 F 61 18 111/50 97
09/15/23 08:06 09/15/23 08:06 09/15/23 08:06 09/15/23 08:06 09/15/23 08:06

Documented by User: Nara Pereira MD 09/15/23 15:13
Plan
Plan
pancytopenia from iron deficiency, CKD, chronic disease/inflammation, possible UTI
Review of prior labs notes fluctuating cytopenias during hospital stays, not neutropenic
Replete iron IV
Eliquis 2.5mg bid, monitor for bleeding
Await urine culture
Mgmt of A/CKD per nephrology
Supportive care
Patient History
History of Present Illness
Antoine Garcia is an 83 year old male with extensive past medical history. He is on chronic Azathioprine for history of UC, though has not had a UC flare since 1993. He does however report chronic diarrhea, without abdominal pain. He's also on Eliquis
for hx afib. He is a resident of [facility] following left AKA in Jun 2023. He noticed on 09/12 that he was unable to type on his phone keyboard and and unable to move his right wrist. He presented with acute kidney injury with Creatinine of 2.3
(baseline Creatinine 1.2-1.3). Urinalysis with many bacteria. We are consulted for acute pancytopenia on Azathioprine.
Review of prior CBCs shows fluctuating leukopenia and thrombocytopenia in the past. He denies bleeding.
Review of Systems
-
All Other Systems: Not reviewed unless documented
Physical Exam
-
General: Well Developed, Well Nourished, No Apparent Distress, Comfortable and Conversant
HEENT: Moist Mucous Membranes; Negative Jaundice
Cardiology: Irregular Rate/Rhythm
Pulmonary: Clear
GI: Soft and Normal Bowel Sounds
Musculoskeletal: Other (s/p left AKA, right foot in foam support)
Neurology: Non Focal and No Lateralizing Symptoms
Skin: Warm and Dry
[2023-09-15 16:05] VITALS: BP 108/56
--- NOTE | 2023-09-15 16:32 | CM ---
Alert awake oriented patient who lives care home at [facility] since Apr 2023. He had a left AKA 05/19/23.His is Nara .He is assisted in all activities of daily living.He uses a wheel chair.He requested to return to [facility] at [place].Will need
ambulance.
Pharmacy [facility]
PCP DR Shaquille Mata
PLAN return to [facility] at [place].
[2023-09-15 17:10] LABS: Glucose - Point of Care 269 mg/dl (70-99)
[2023-09-15] MEDS: NOVOLOG FLEXPEN-LOW RESISTANCE 3 UNITS SC (18:05)
[2023-09-15] MEDS: LIPITOR 80 MG PO (18:06)
[2023-09-15 21:12] LABS: Glucose - Point of Care 217 mg/dl (70-99)
[2023-09-15] MEDS: REMERON 30 MG PO (21:26)
[2023-09-15] MEDS: LYRICA 50 MG PO (21:33)
[2023-09-15] MEDS: LYRICA PO (21:39)
[2023-09-15 23:00] VITALS: BP 105/55
[2023-09-16 06:00] VITALS: BMI 26.8
[2023-09-16 06:00] LABS: % Basophils 0.6 % (0-2); % Eosinophils 9.7 % (0-6); % Immature Granulocytes 0.6 % (0-0.5); % Lymphocytes 12.4 % (20.5-51.1); % Monocytes 8.3 % (1.7-9.3); % Neutrophils 68.4 % (42.2-75.2); Absolute Eosinophils 0.4 10^3/uL (0-0.7); Absolute Lymphocytes 0.5 10^3/uL (1.2-3.4); Absolute Monocytes 0.3 10^3/uL (0.1-0.6); Absolute Neutrophils 2.5 10^3/uL (1.4-6.5); Hematocrit 22.7 % (39.0-52.0); Hemoglobin 7.2 g/dL (13.0-18.0); Mean Corp Hgb Conc. 31.7 g/dL (33.0-37.0); Mean Corpuscular Volume 81.9 fL (80.0-94.0); Nucleated Red Blood Cells % 0 % (-); Platelet Count 73 10^3/uL (130-400); Red Blood Cell Count 2.77 10^6/uL (4.70-6.10); Red Cell Dist. Width 19.6 % (11.5-14.5); White Blood Cell Count 3.6 10^3/uL (4.8-10.8)
[2023-09-16 06:23] LABS: Blood Urea Nitrogen 73 mg/dl (9-20); Calcium 9.2 mg/dl (8.4-10.2); Carbon Dioxide 26 mmol/L (22-30); Chloride 106 mmol/L (98-107); Estimated Creatinine Clearance 24 ml/min; Glucose 89 mg/dl (70-99); Sodium 139 mmol/L (135-145); eGFR 28.99
[2023-09-16 07:25] VITALS: BP 134/66
[2023-09-16 08:19] LABS: Glucose - Point of Care 71 mg/dl (70-99)
[2023-09-16] MEDS: NOVOLOG FLEXPEN-LOW RESISTANCE SC (08:21)
[2023-09-16] MEDS: LYRICA 50 MG PO ×2 (08:22→20:16)
[2023-09-16] MEDS: ELIQUIS 2.5 MG PO (08:22)
[2023-09-16] MEDS: THERAGRAN 1 TABLET PO (08:22)
[2023-09-16] MEDS: FOLTX 1 TABLET PO (08:22)
[2023-09-16] MEDS: PROTONIX 40 MG PO (08:22)
[2023-09-16] MEDS: COREG 3.125 MG PO (08:24)
[2023-09-16] MEDS: PACERONE 200 MG PO (08:24)
--- NOTE | 2023-09-16 09:50 | W.PN.HOSP.TC ---
Addendum entered and electronically signed by Itz Yusuf MD 09/16/23 10:21:
Will consult urology who would prefer to hold anticoagulation with apixaban given risk of hematuria order will be to hold as of now awaiting urology input spoke to nephrology in regards to ultrasound findings
Original Note:
Today's Communication/Plan
-
Will confirm with nephrology in regards to bilateral pelvi calyceal dilatation
Continue IV iron
Would not transfuse it at this point
Will need continued physical therapy and rehab for right wrist
Assessment / Plan
Assessment / Plan
#Right radial nerve palsy unclear etiology/somewhat better this morning although disquiet extension still
#chronic limited range of motion bilateral shoulders to shoulder level only
-Right wrist splint applied
-Consult PT/OT/case management
CT head: No acute intracranial abnormalities
Suspected tiny old lacunar infarcts again noted in the right cindy and right Ginger/external capsule
Diffuse cortical atrophy with nonspecific white matter changes
#LENI on CKD 3 A
#Hx orthostasis in Apr 2023 creat responded to IV fluids
Creat 2.3 83 creat was1.3 June 29, 2023(CrCl approximately 43)
-Consult nephrology
-Hold Bumex
-IV NSS 500 cc given in ER
-Continue IV NSS 60 cc an hour x 1 L
-Reduce Eliquis to 2.5 mg twice daily
-BMP in a.m./obtain renal and bladder ultrasound
Abnormal urinalysis with many bacteria/culture not sent?
-Unclear whether symptomatic
-Underlying dementia and intermediate was not in diapers mostly
-Will place on empiric ceftriaxone while awaiting culture results
-Check renal bladder ultrasound/shows severe bilateral pelvicalyceal dilatation
#Chronic stage I right heel ulcer
-Patient currently wearing offloading heel boot no open areas
#Chronic right lower extremity lymphedema
-Hold Bumex
#Hx CVA per CT head
#Hx subdural hematoma after mechanical fall
tiny old lacunar infarcts again noted in the right cindy and right Ginger/external capsule
-Continue statin, Eliquis at 2.5 mg twice daily
#Hx orthostatic hypotension/HTN
Monitor orthostatic vitals
-Continue carvedilol 3.125 mg p.o. twice daily with hold parameters
#Anemia of chronic disease�normocytic
Hgb 8.4 baseline appears 7.5-9.1>> 7.0
-No active bleeding
-All iron panel levels depressed will treat with iron
-Continue Folbic
-Hematology input noted and appreciated
#Acute on chronic thrombocytopenia
PLT 75 baseline appears 130-160 June 2023
#DM2 with hyperglycemia
BS 279
-Accu-Cheks with SSI, check HgbA1c
-Lantus 15 units subcu daily 8:30 PM
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
#phantom leg pain
-Continue Lyrica 75 mg p.o. 3 times daily
#Paroxysmal A-fib
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
-Continue amiodarone 200 mg daily
-Continue Eliquis decreased dose from 5 mg twice daily to 2.5 mg twice daily given LENI on CKD 3A
#CAD/CT/CABG 2009
#Chronic LBBB
-Continue Coreg with hold parameters, statin
#HLD
-Continue statin
#Chronic pain syndrome secondary to spinal stenosis on chronic opiate patch
-Continue fentanyl patch, Lyrica
#GERD/Hx GI bleed
-Continue PPI
#Hx ulcerative colitis
-Continue azathioprine
#Anxiety
-Continue Remeron
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
PT/OT/case management consult
DVT prophylaxis
Continue TELETYPE MECHANIC Eliquis
Full code
Anticipated Discharge: 24 - 48 hours
Subjective/Interval History
-
Date of Service: September 16, 2023
Patient in no distress comfortable maybe a little improved range of motion in right wrist still with splint denies abdominal pain
Objective Data
-
Labs:
Laboratory Results
09/16/23
05:00
WBC 3.6 L
Hgb 7.2 L
Hct 22.7 L
Plt Count 73 L
Sodium 139
Potassium 4.0
Chloride 106
Carbon Dioxide 26
BUN 73 H
Creatinine 2.2 H
Glucose 89
Calcium 9.2
Vital Signs:
Vital Signs
Temp Pulse Resp BP Pulse Ox
97.7 F 66 18 134/66 94
09/16/23 07:25 09/16/23 08:24 09/16/23 07:25 09/16/23 08:24 09/16/23 07:25
I&O
09/15/23 09/16/23 09/17/23
06:59 06:59 06:59
Intake Total 1680 / 1680
Output Total 300 / 300
Balance 1380 / 1380
Review of Systems
-
Unable to obtain full review of systems at this time due to: Dementia
History Source: Patient
All other systems: Not reviewed unless documented
Respiratory: Reports No Symptoms
Abdomen/GI: Reports No Symptoms and Constipated (States he had a large bowel movement yesterday)
Genitourinary: Reports No Symptoms
Neuro: Reports No Symptoms
Endocrine: Reports No Symptoms
Hematologic / Lymphatic: Reports No Symptoms
Physical Exam
-
General: No Apparent Distress
HEENT: Normocephalic
Respiratory: Clear to Auscultation
Cardiac: Regular Rhythm
Genito-urinary: No Costovertebral Tender
Musculoskeletal: No Clubbing
Skin: Warm
Neuro: Awake
Psych: Calm
Data Reviewed
-
Total Time Spent with Patient (in minutes): 56
Medical Tests (Nuc Med, Echo etc): Report Reviewed by me (Renal ultrasound shows bilateral severe pelvic calyceal dilatation)
Labs: Labs Reviewed by me
[2023-09-16 11:43] LABS: Glucose - Point of Care 188 mg/dl (70-99)
--- NOTE | 2023-09-16 12:09 | CON.MD ---
Consultation - Medical
-
see dictated note
pt with multiple medical problems
this admit noted to have worsening renal function
u/s showed hydro and distended bladder
ct- final read pending- but distended bladder and hydro down to uvj c/w with obstruction
pt denies any prior gu hx or surgery
reports incontinence since his amputation
plan
20 syriac zaragoza placed- will slowly drain bladder over next hour
hold eliquis- observe for hematuria
start flomax
track cr
check ua and cx from placed zaragoza
[2023-09-16] MEDS: DESENEX/MITRAZOL/ZEASORB 1 APPLIC TOPICAL ×2 (12:15→20:17)
[2023-09-16 12:28] LABS: Glucose - Point of Care 163 mg/dl (70-99)
[2023-09-16] MEDS: NOVOLOG FLEXPEN-LOW RESISTANCE 1 UNITS SC (12:29)
[2023-09-16] MEDS: ROCEPHIN 1000 MG IV (12:32)
[2023-09-16] MEDS: STERILE WATER FOR INJECTION 10 ML IV (12:32)
[2023-09-16 12:40] LABS: Urine Albumin Trace (Neg - Trace); Urine Bilirubin Negative (Negative); Urine Character Clear (Clear); Urine Color Yellow; Urine Glucose Negative (Negative); Urine Ketone Negative (Negative); Urine Leukocyte 2+ (Negative); Urine Nitrite Negative (Negative); Urine Occult Blood 2+ (Negative); Urine Urobilinogen Negative (Neg - 1+)
[2023-09-16 12:58] LABS: Urine Bacteria Few (Negative); Urine White Cell 16-20 /HPF (0-5); Urine Yeast Few (Negative)
[2023-09-16] MEDS: FLOMAX 0.400000000000000022 MG PO (13:32)
[2023-09-16] MEDS: FERRLECIT 110 MG IV (14:27)
[2023-09-16 15:36] VITALS: BP 108/58
[2023-09-16 16:41] LABS: Glucose - Point of Care 234 mg/dl (70-99)
--- NOTE | 2023-09-16 17:17 | PTCARENOTE ---
Received patient this am AAOX3. Pt offered no complaints. Tolerated diet well. Pt off unit for CT abdomen and pelvis. Pt seen at [address] Perez- urologist. Cespedes catheter inserted by . Initial urine returned was 600 yellow urine. Cespedes
clamped for 30 minutes. Cespedes drained 100ml of pink tinged urine. Cespedes left unclamped. Made patient comfortable. Cont to assess patient status.
[2023-09-16] MEDS: NOVOLOG FLEXPEN-LOW RESISTANCE 2 UNITS SC (17:31)
[2023-09-16] MEDS: LIPITOR 80 MG PO (17:31)
--- NOTE | 2023-09-16 17:43 | W.PN.NEPH.PH ---
Today's Communication / Plan
-
Observe status post Zaragoza for obstructive uropathy
Assessment/Plan
-
Assessment:
Right radial nerve palsy unclear etiology
chronic limited range of motion bilateral shoulders to shoulder level only
LENI on CKD 3 A baseline cr 1.2-1.3
Chronic stage I right heel ulcer
Chronic right lower extremity lymphedema
Hx CVA per CT head
Hx subdural hematoma after mechanical fall
Hx orthostatic hypotension/HTN
Anemia of chronic disease
Acute on chronic thrombocytopenia
DM2 with hyperglycemia
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
phantom leg pain
Paroxysmal A-fib
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
CAD/DC/CABG 2009
Chronic LBBB
HLD
Chronic pain syndrome secondary to spinal stenosis on chronic opiate patch
GERD/Hx GI bleed
Hx ulcerative colitis- azathioprine
Anxiety
Chronic ambulatory dysfunction with chronic foot and ankle deformities
Plan:
A/w right wrist drop and found to have LENI
LENI-UA ?UTI, follow bladder scan
unable to get UOP measured due to U incontinence
Zaragoza placed for bilateral hydronephrosis noted on CT scan
Creatinine unchanged at 2.2
hold diuretics for now
meds adjust renal dosing, avoid nephrotoxins
BP are stable
[id number] heme eval , on Imuran-may need to be held
afib on Eliquis too
chr onic anemia worsening fe def noted, IV fe course
-
-
Date of Service: September 16, 2023
CC / HPI / ROS
-
Chief Complaint:
LENI
History of Present Illness:
cr no change at 2.2, UOP not measured due to incontinence
BP stable, plt decreasing 73k
Remains anemic
Review of Systems:
no cp or sob
no other complaints
no n/v
hematuria in zaragoza
Labs
-
Labs:
WBC 3.6 10^3/uL (4.8-10.8) L 09/16/23 05:00
RBC 2.77 10^6/uL (4.70-6.10) L 09/16/23 05:00
Hgb 7.2 g/dL (13.0-18.0) L 09/16/23 05:00
Hct 22.7 % (39.0-52.0) L 09/16/23 05:00
Plt Count 73 10^3/uL (130-400) L 09/16/23 05:00
Sodium 139 mmol/L (135-145) 09/16/23 05:00
Potassium 4.0 mmol/L (3.5-5.1) 09/16/23 05:00
Chloride 106 mmol/L (98-107) 09/16/23 05:00
Carbon Dioxide 26 mmol/L (22-30) 09/16/23 05:00
BUN 73 mg/dl (9-20) H 09/16/23 05:00
Creatinine 2.2 mg/dL (0.7-1.3) H 09/16/23 05:00
eGFR 28.99 09/16/23 05:00
Glucose 89 mg/dl (70-99) 09/16/23 05:00
Calcium 9.2 mg/dl (8.4-10.2) 09/16/23 05:00
Albumin 3.6 g/dl (3.5-5.0) 09/14/23 13:34
Physical Exam
-
Vital Signs:
Vital Signs
Temp Pulse Resp BP Pulse Ox
97.2 F 66 16 108/58 97
09/16/23 15:36 09/16/23 15:36 09/16/23 15:36 09/16/23 15:36 09/16/23 15:36
Respiratory:: Bilateral: Coarse
Lung Excursion:: Normal
Abdomen:: Nontender
Bowel Sounds:: Normal
Extremity Edema:: None: Bilateral:
Zaragoza Catheter: Yes
[2023-09-16 20:07] LABS: Glucose - Point of Care 272 mg/dl (70-99)
[2023-09-16] MEDS: REMERON 30 MG PO (20:16)
[2023-09-16] MEDS: COREG PO (20:16)
[2023-09-16] MEDS: LANTUS 0.149999999999999994 UNITS SC (20:17)
[2023-09-16 23:31] VITALS: BP 120/57
[2023-09-17 06:00] VITALS: BMI 26.2
--- NOTE | 2023-09-17 07:32 | W.PN.URO.CBU ---
Today's Communication / Plan
-
continue zaragoza
Assessment / Plan
-
urinary retention/hydro/renal insufficiency
continue zaragoza
hold eliquis another 24hrs
await ucx
track cr
continue flomax
pt will need to be discharged with zaragoza and schedule outpt TOV
will follow
Diagnosis
-
Date of Service: September 17, 2023
-
Patient Diagnosis:
urinary retention
hydro
renal insufficiency
Subjective
-
pt asleep
urine pink colored
cr pending
Objective
-
Vital Signs
Temp Pulse Resp BP Pulse Ox
98.2 F 61 18 120/57 99
09/16/23 23:31 09/16/23 23:31 09/16/23 23:31 09/16/23 23:31 09/17/23 00:00
Intake and Output
09/16/23 09/17/23 09/18/23
06:59 06:59 06:59
Intake Total 1680 / 1680 720 / 720
Output Total 300 / 300 2550 / 2550
Balance 1380 / 1380 -1830 / -1830
Intake:
Oral fluids 1680 / 1680 720 / 720
Output:
Urine, Voided 300 / 300 2550 / 2550
Other:
How many times incontinent 3
SATURATED amount urine
Physical Exam
-
General - no acute distress
Abdomen - soft, non-tender
Genitalia - mild edema
[2023-09-17 08:00] LABS: % Basophils 0.4 % (0-2); % Eosinophils 6.3 % (0-6); % Immature Granulocytes 0.4 % (0-0.5); % Lymphocytes 12.8 % (20.5-51.1); % Neutrophils 72.1 % (42.2-75.2); Absolute Eosinophils 0.3 10^3/uL (0-0.7); Absolute Lymphocytes 0.6 10^3/uL (1.2-3.4); Absolute Monocytes 0.4 10^3/uL (0.1-0.6); Absolute Neutrophils 3.3 10^3/uL (1.4-6.5); Hemoglobin 7.1 g/dL (13.0-18.0); Mean Corp Hgb Conc. 32.3 g/dL (33.0-37.0); Mean Corpuscular Hgb 26.2 pg (27.0-31.0); Mean Corpuscular Volume 81.2 fL (80.0-94.0); Nucleated Red Blood Cells % 0 % (-); Platelet Count 71 10^3/uL (130-400); Red Blood Cell Count 2.71 10^6/uL (4.70-6.10); Red Cell Dist. Width 19.8 % (11.5-14.5); White Blood Cell Count 4.6 10^3/uL (4.8-10.8)
[2023-09-17 08:19] VITALS: BP 112/58
[2023-09-17 08:20] LABS: Blood Urea Nitrogen 66 mg/dl (9-20); Calcium 9.2 mg/dl (8.4-10.2); Carbon Dioxide 26 mmol/L (22-30); Chloride 106 mmol/L (98-107); Estimated Creatinine Clearance 28 ml/min; Glucose 118 mg/dl (70-99); Sodium 139 mmol/L (135-145); eGFR 34.57
[2023-09-17 08:35] LABS: Glucose - Point of Care 157 mg/dl (70-99)
[2023-09-17] MEDS: PACERONE 200 MG PO (09:16)
[2023-09-17] MEDS: THERAGRAN 1 TABLET PO (09:16)
[2023-09-17] MEDS: DESENEX/MITRAZOL/ZEASORB 1 APPLIC TOPICAL ×2 (09:16→21:09)
[2023-09-17] MEDS: LYRICA 50 MG PO ×2 (09:16→21:07)
[2023-09-17] MEDS: COREG 3.125 MG PO ×2 (09:17→21:16)
[2023-09-17] MEDS: NOVOLOG FLEXPEN-LOW RESISTANCE 1 UNITS SC (09:17)
[2023-09-17] MEDS: PROTONIX 40 MG PO (09:17)
[2023-09-17] MEDS: FLOMAX 0.400000000000000022 MG PO (09:17)
[2023-09-17] MEDS: FOLTX 1 TABLET PO (09:17)
--- NOTE | 2023-09-17 09:24 | W.PN.HOSP.TC ---
Today's Communication/Plan
-
Continue Cespedes catheter
Continue to hold Eliquis with continued hematuria
Consideration for blood transfusion although hemoglobin has not really changed since admission and hemodynamically remained stable
Anemia of chronic disease
We discontinue ceftriaxone/yeast noted in urine culture preliminary/no signs of infection however
Assessment / Plan
Assessment / Plan
#Right radial nerve palsy unclear etiology/somewhat better this morning although disquiet extension still
#chronic limited range of motion bilateral shoulders to shoulder level only
-Right wrist splint applied
-Consult PT/OT/case management
CT head: No acute intracranial abnormalities
Suspected tiny old lacunar infarcts again noted in the right cindy and right Ginger/external capsule
Diffuse cortical atrophy with nonspecific white matter changes
#LENI on CKD 3 A/found to have bilateral hydronephrosis with significant residual requiring insertion of Cespedes catheter that will remain indwelling
#Hx orthostasis in Apr 2023 creat responded to IV fluids
Creat 2.3 creat was1.3 June 29, 2023(CrCl approximately 43)
-Consult nephrology/urology
-Hold Bumex
-Did not have much response to IV fluids
-Reduce Eliquis to 2.5 mg twice daily
-Eliquis now on hold with insertion of Cespedes catheter and hematuria
Abnormal urinalysis with many bacteria/culture not sent?
-Unclear whether symptomatic/and now growing yeast which may be colonizer and would not treat stop antibiotic
-Underlying dementia and fpc was not in diapers mostly
-Check renal bladder ultrasound/shows severe bilateral pelvicalyceal dilatation
#Chronic stage I right heel ulcer
-Patient currently wearing offloading heel boot no open areas
#Chronic right lower extremity lymphedema
-Hold Bumex
#Hx CVA per CT head
#Hx subdural hematoma after mechanical fall
tiny old lacunar infarcts again noted in the right cindy and right Ginger/external capsule
-Continue statin, Eliquis at 2.5 mg twice daily
#Hx orthostatic hypotension/HTN
Monitor orthostatic vitals
-Continue carvedilol 3.125 mg p.o. twice daily with hold parameters
#Anemia of chronic disease�normocytic
Hgb 8.4 baseline appears 7.5-9.1>> 7.0
-No active bleeding
-All iron panel levels depressed will treat with iron
-Continue Folbic
-Hematology input noted and appreciated
#Acute on chronic thrombocytopenia
PLT 75 baseline appears 130-160 June 2023
#DM2 with hyperglycemia
BS 279
-Accu-Cheks with SSI, check HgbA1c
-Lantus 15 units subcu daily 8:30 PM
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
#phantom leg pain
-Continue Lyrica 75 mg p.o. 3 times daily
#Paroxysmal A-fib
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
-Continue amiodarone 200 mg daily
-Continue Eliquis decreased dose from 5 mg twice daily to 2.5 mg twice daily given LENI on CKD 3A
#CAD/[place]/CABG 2009
#Chronic LBBB
-Continue Coreg with hold parameters, statin
#HLD
-Continue statin
#Chronic pain syndrome secondary to spinal stenosis on chronic opiate patch
-Continue fentanyl patch, Lyrica
#GERD/Hx GI bleed
-Continue PPI
#Hx ulcerative colitis
-Continue azathioprine
#Anxiety
-Continue Remeron
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
PT/OT/case management consult
DVT prophylaxis
Continue [employer] Eliquis/on hold after insertion of Cespedes catheter
Full code
Anticipated Discharge: Within 24 hours
Subjective/Interval History
-
Date of Service: September 17, 2023
Hard of hearing but also difficult to communicate with due to his underlying dementia was convinced that his heart catheter was not inserted yet and was going to the OR which I assured him he is not. He has continued gross hematuria through the
Cespedes . There is no reference to any lightheadedness chest pain or shortness of breath. No abdominal pain or suprapubic tenderness referred.
Objective Data
-
Labs:
Laboratory Results
09/17/23
06:58
WBC 4.6 L
Hgb 7.1 L
Hct 22.0 L
Plt Count 71 L
Sodium 139
Potassium 4.0
Chloride 106
Carbon Dioxide 26
BUN 66 H
Creatinine 1.9 H
Glucose 118 H
Calcium 9.2
Vital Signs:
Vital Signs
Temp Pulse Resp BP Pulse Ox
98.4 F 61 18 112/58 93
09/17/23 08:19 09/17/23 08:19 09/17/23 08:19 09/17/23 08:19 09/17/23 08:19
I&O
09/16/23 09/17/23 09/18/23
06:59 06:59 06:59
Intake Total 1680 / 1680 720 / 720
Output Total 300 / 300 2550 / 2550
Balance 1380 / 1380 -1830 / -1830
Review of Systems
-
Unable to obtain full review of systems at this time due to: Dementia
History Source: Patient and Family
EENT: Reports No Symptoms Reported
Respiratory: Reports No Symptoms
Cardiac: Reports No Symptoms
Abdomen/GI: Reports No Symptoms
Genitourinary: Reports Bleeding and Dark Urine
Physical Exam
-
General: Well Developed
HEENT: Normocephalic
Respiratory: Clear to Auscultation
Cardiac: Irregular Rhythm
GI: Soft and Nontender
Genito-urinary: Bloody Urine and Cespedes
Neuro: Awake, Alert and Oriented
Psych: Calm
Data Reviewed
-
Total Time Spent with Patient (in minutes): 45
Labs: Labs Reviewed by me (hgb still stable at 7.1/platelets 71,000/no white count elevation/creatinine now trending down from 2.2-1.9)
[2023-09-17] MEDS: STERILE WATER FOR INJECTION IV (11:13)
--- NOTE | 2023-09-17 11:45 | W.PN.ONC ---
Today's Communication / Plan
-
4/4 WBC 4.6, Hgb 7.1, Hct 22, PLT 71
Transfuse as needed to maintain Hgb >7, PLT >20
Monitor CBC daily
Continue Azathioprine
Continue IV iron repletion
Eliquis currently on hold due to gross hematuria
Urine culture in progress
Management of CKD per Nephrology, zaragoza per Urology
Supportive care
We will follow.
Impression
Impression
Anemia of chronic disease
Acute kidney injury (baseline Creat 1.2-1.3)
Chronic renal insufficiency, CKD3
Ulcerative colitis on chronic Azathioprine
Immunosuppression
Chronic inflammation
Pancytopenia
Acute on chronic thrombocytopenia
Iron deficiency anemia
Urinalysis with many bacteria
Gross hematuria
Indwelling zaragoza catheter
Subjective/Objective
Subjective/Objective
Patient is eating breakfast. Denies pain. He states he is incontinent of urine at baseline. He denies bruising or noticing hematuria prior to hospitalization. Denies acute symptoms. Family at bedside.
Vital Signs:
Vital Signs
Temp Pulse Resp BP Pulse Ox
98.4 F 61 18 112/58 93
09/17/23 08:19 09/17/23 08:19 09/17/23 08:19 09/17/23 08:19 09/17/23 08:19
physical exam
aaox3, pallor, CROW
lungs clear, HR irregular
hematuria noted in zaragoza catheter bag
Left AKA, right foot in foam boot
Lab Results:
Laboratory Data
WBC 4.6 10^3/uL (4.8-10.8) L 09/17/23 06:58
Hgb 7.1 g/dL (13.0-18.0) L 09/17/23 06:58
Plt Count 71 10^3/uL (130-400) L 09/17/23 06:58
eGFR 34.57 09/17/23 06:58
--- NOTE | 2023-09-17 11:50 | W.PN.ONC ---
Today's Communication / Plan
-
Pancytopenia from iron deficiency, CKD, chronic disease/inflammation, and hematuria
Hemoglobin 7.1 g/dL low threshold for transfusion for additional drop
Review of prior labs notes fluctuating cytopenias during hospital stays, not neutropenic
Replete iron IV
Eliquis 2.5mg bid, monitor for bleeding
Await urine culture gross hematuria
Mgmt of A/CKD per nephrology
Supportive care
Impression
Impression
Anemia of chronic disease
Acute kidney injury (baseline Creat 1.2-1.3)
Chronic renal insufficiency, CKD3
Ulcerative colitis on chronic Azathioprine
Immunosuppression
Chronic inflammation
Pancytopenia
Acute on chronic thrombocytopenia
Iron deficiency anemia
Urinalysis with many bacteria
Subjective/Objective
Subjective/Objective
Patient was resting comfortably without hearing aids today.
Vital Signs:
Vital Signs
Temp Pulse Resp BP Pulse Ox
98.4 F 61 18 112/58 93
09/17/23 08:19 09/17/23 08:19 09/17/23 08:19 09/17/23 08:19 09/17/23 08:19
Unchanged physical exam
Lab Results:
Laboratory Data
WBC 4.6 10^3/uL (4.8-10.8) L 09/17/23 06:58
Hgb 7.1 g/dL (13.0-18.0) L 09/17/23 06:58
Plt Count 71 10^3/uL (130-400) L 09/17/23 06:58
eGFR 34.57 09/17/23 06:58
[2023-09-17 12:02] LABS: Glucose - Point of Care 272 mg/dl (70-99)
[2023-09-17] MEDS: NOVOLOG FLEXPEN-LOW RESISTANCE 3 UNITS SC (12:28)
[2023-09-17] MEDS: FERRLECIT 110 MG IV (13:34)
--- NOTE | 2023-09-17 14:47 | W.PN.NEPH.PH ---
Today's Communication / Plan
-
Follow BMP
Maintain Zaragoza
Assessment/Plan
-
Assessment:
Right radial nerve palsy unclear etiology
chronic limited range of motion bilateral shoulders to shoulder level only
LENI on CKD 3 A baseline cr 1.2-1.3
Chronic stage I right heel ulcer
Chronic right lower extremity lymphedema
Hx CVA per CT head
Hx subdural hematoma after mechanical fall
Hx orthostatic hypotension/HTN
Anemia of chronic disease
Acute on chronic thrombocytopenia
DM2 with hyperglycemia
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
phantom leg pain
Paroxysmal A-fib
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
CAD/[place]/CABG 2009
Chronic LBBB
HLD
Chronic pain syndrome secondary to spinal stenosis on chronic opiate patch
GERD/Hx GI bleed
Hx ulcerative colitis- azathioprine
Anxiety
Chronic ambulatory dysfunction with chronic foot and ankle deformities
Plan:
A/w right wrist drop and found to have LENI
unable to get UOP measured due to U incontinence
Zaragoza placed for bilateral hydronephrosis noted on CT scan and now with non oliguric and LENI improvement down to 1.9
Serum sodium remains stable in setting of postobstructive diuresis
hold diuretics for now given auto diuresis following Zaragoza catheter placement for obstruction
meds adjust renal dosing, avoid nephrotoxins
BP are stable
[id number] heme eval , on Imuran-may need to be held
afib on Eliquis too
chronic anemia worsening fe def noted, IV fe course , hematology evaluation
-
-
Date of Service: September 17, 2023
CC / HPI / ROS
-
Chief Complaint:
LENI
History of Present Illness:
cr no change at 1.9
BP stable, plt decreasing 73k
Remains anemic at 7.1
Review of Systems:
no cp or sob
Grossly nonoliguric 2.5 L
no other complaints
no n/v
hematuria in zaragoza
Labs
-
Labs:
WBC 4.6 10^3/uL (4.8-10.8) L 09/17/23 06:58
RBC 2.71 10^6/uL (4.70-6.10) L 09/17/23 06:58
Hgb 7.1 g/dL (13.0-18.0) L 09/17/23 06:58
Hct 22.0 % (39.0-52.0) L 09/17/23 06:58
Plt Count 71 10^3/uL (130-400) L 09/17/23 06:58
Sodium 139 mmol/L (135-145) 09/17/23 06:58
Potassium 4.0 mmol/L (3.5-5.1) 09/17/23 06:58
Chloride 106 mmol/L (98-107) 09/17/23 06:58
Carbon Dioxide 26 mmol/L (22-30) 09/17/23 06:58
BUN 66 mg/dl (9-20) H 09/17/23 06:58
Creatinine 1.9 mg/dL (0.7-1.3) H 09/17/23 06:58
eGFR 34.57 09/17/23 06:58
Glucose 118 mg/dl (70-99) H 09/17/23 06:58
Calcium 9.2 mg/dl (8.4-10.2) 09/17/23 06:58
Albumin 3.6 g/dl (3.5-5.0) 09/14/23 13:34
Physical Exam
-
Vital Signs:
Vital Signs
Temp Pulse Resp BP Pulse Ox
98.4 F 61 18 112/58 93
09/17/23 08:19 09/17/23 08:19 09/17/23 08:19 09/17/23 08:19 09/17/23 08:19
Cardiovascular:: Regular rate and rhythm
Respiratory:: Bilateral: Coarse
Lung Excursion:: Normal
Abdomen:: Nontender and Soft
Bowel Sounds:: Normal
Extremity Edema:: None: Left: (AKA)
Zaragoza Catheter: Yes
[2023-09-17 15:26] VITALS: BP 107/50
[2023-09-17 16:00] VITALS: BP 109/56; PULSE 60; O2SAT 98
[2023-09-17 16:02] VITALS: BP 109/56; PULSE 60; O2SAT 98
[2023-09-17 17:43] LABS: Glucose - Point of Care 204 mg/dl (70-99)
[2023-09-17] MEDS: LIPITOR 80 MG PO (17:49)
[2023-09-17] MEDS: NOVOLOG FLEXPEN-LOW RESISTANCE 2 UNITS SC (17:49)
[2023-09-17 20:18] LABS: Glucose - Point of Care 285 mg/dl (70-99)
[2023-09-17 21:05] VITALS: BP 117/57
[2023-09-17] MEDS: REMERON 30 MG PO (21:06)
[2023-09-17] MEDS: LANTUS 0.149999999999999994 UNITS SC (21:06)
[2023-09-17] MEDS: COREG PO (21:07)
[2023-09-17] MEDS: TYLENOL 650 MG PO (21:08)
[2023-09-17] MEDS: DURAGESIC 25 MCG/HR PATCH 1 PATCH TRANSDERM (23:24)
[2023-09-17 23:39] VITALS: BP 98/46
[2023-09-18 06:00] VITALS: BMI 26.4
[2023-09-18 07:18] VITALS: BP 105/55
[2023-09-18 07:22] LABS: Glucose - Point of Care 103 mg/dl (70-99)
[2023-09-18] MEDS: NOVOLOG FLEXPEN-LOW RESISTANCE SC ×2 (07:34→11:41)
[2023-09-18] MEDS: FOLTX 1 TABLET PO (08:07)
[2023-09-18] MEDS: LYRICA 50 MG PO ×2 (08:07→20:50)
[2023-09-18] MEDS: PACERONE 200 MG PO (08:10)
[2023-09-18] MEDS: PROTONIX 40 MG PO (08:12)
[2023-09-18] MEDS: FLOMAX 0.400000000000000022 MG PO (08:12)
[2023-09-18] MEDS: THERAGRAN 1 TABLET PO (08:13)
[2023-09-18] MEDS: COREG 3.125 MG PO ×2 (08:17→20:48)
[2023-09-18] MEDS: DESENEX/MITRAZOL/ZEASORB 1 APPLIC TOPICAL ×2 (08:18→22:42)
[2023-09-18] MEDS: IMURAN 75 MG PO (08:19)
--- NOTE | 2023-09-18 09:17 | W.PN.HOSP.TC ---
Today's Communication/Plan
-
Still awaiting today's labs
Type and screen ordered/blood consent signed by son who is POA at bedside
Will need indwelling Cespedes catheter at discharge for follow-up with urology
Assessment / Plan
Assessment / Plan
#Right radial nerve palsy unclear etiology/somewhat better this morning although disquiet extension still
#chronic limited range of motion bilateral shoulders to shoulder level only
-Right wrist splint applied
-Consult PT/OT/case management
CT head: No acute intracranial abnormalities
Suspected tiny old lacunar infarcts again noted in the right cindy and right Ginger/external capsule
Diffuse cortical atrophy with nonspecific white matter changes
#LENI on CKD 3 A/found to have bilateral hydronephrosis with significant residual requiring insertion of Cespedes catheter that will remain indwelling
#Hx orthostasis in Apr 2023 creat responded to IV fluids
Creat 2.3 creat was1.3 June 29, 2023(CrCl approximately 43)
-Consult nephrology/urology
-Hold Bumex
-Did not have much response to IV fluids
-Reduce Eliquis to 2.5 mg twice daily
-Eliquis now on hold with insertion of Cespedes catheter and hematuria/resuming Eliquis with resolution of hematuria
Abnormal urinalysis with many bacteria/culture not sent?
-Unclear whether symptomatic/and now growing yeast which may be colonizer and would not treat stop antibiotic
-Underlying dementia and fdc was not in diapers mostly
-Check renal bladder ultrasound/shows severe bilateral pelvicalyceal dilatation
-Will be going back to his facility on indwelling Cespedes catheter and follow-up with urology for void trial
#Chronic stage I right heel ulcer
-Patient currently wearing offloading heel boot no open areas
#Chronic right lower extremity lymphedema
-Hold Bumex
#Hx CVA per CT head
#Hx subdural hematoma after mechanical fall
tiny old lacunar infarcts again noted in the right cindy and right Ginger/external capsule
-Continue statin, Eliquis at 2.5 mg twice daily
#Hx orthostatic hypotension/HTN
Monitor orthostatic vitals
-Continue carvedilol 3.125 mg p.o. twice daily with hold parameters
#Anemia of chronic disease�normocytic
Hgb 8.4 baseline appears 7.5-9.1>> 7.0
-No active bleeding
-All iron panel levels depressed will treat with iron
-Continue Folbic
-Hematology input noted and appreciated
#Acute on chronic thrombocytopenia
PLT 75 baseline appears 130-160 June 2023
#DM2 with hyperglycemia
BS 279
-Accu-Cheks with SSI, check HgbA1c
-Lantus 15 units subcu daily 8:30 PM
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
#phantom leg pain
-Continue Lyrica 75 mg p.o. 3 times daily
#Paroxysmal A-fib
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
-Continue amiodarone 200 mg daily
-Continue Eliquis decreased dose from 5 mg twice daily to 2.5 mg twice daily given LENI on CKD 3A
#CAD/[place]/CABG 2009
#Chronic LBBB
-Continue Coreg with hold parameters, statin
#HLD
-Continue statin
#Chronic pain syndrome secondary to spinal stenosis on chronic opiate patch
-Continue fentanyl patch, Lyrica
#GERD/Hx GI bleed
-Continue PPI
#Hx ulcerative colitis
-Continue azathioprine
#Anxiety
-Continue Remeron
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
PT/OT/case management consult
DVT prophylaxis
Continue [employer] Eliquis/on hold after insertion of Cespedes catheter
Full code
Anticipated Discharge: Within 24 hours
Subjective/Interval History
-
Date of Service: September 18, 2023
Peggy is doing well sleeping slowly with initially saw him son at bedside and gave consent for blood transfusion if needed. His hematuria looks to have resolved through his Cespedes catheter
Objective Data
-
Labs:
Laboratory Results
09/18/23
08:45
WBC Pending
Hgb Pending
Hct Pending
Plt Count Pending
Sodium Pending
Potassium Pending
Chloride Pending
Carbon Dioxide Pending
BUN Pending
Creatinine Pending
Glucose Pending
Calcium Pending
Vital Signs:
Vital Signs
Temp Pulse Resp BP Pulse Ox
97.7 F 62 16 112/55 93
09/18/23 07:18 09/18/23 08:17 09/18/23 07:18 09/18/23 08:17 09/18/23 07:18
I&O
09/17/23 09/18/23 09/19/23
06:59 06:59 06:59
Intake Total 720 / 720 720 / 720
Output Total 2550 / 2550 1800 / 1800
Balance -1830 / -1830 -1080 / -1080
Review of Systems
-
Unable to obtain full review of systems at this time due to: Other (Hard of hearing)
History Source: Patient and Family
EENT: Reports No Symptoms Reported
Respiratory: Reports No Symptoms
Cardiac: Reports No Symptoms
Abdomen/GI: Reports No Symptoms
Genitourinary: Reports Bleeding
Musculoskeletal: Reports No Symptoms
Physical Exam
-
General: Well Developed and Conversant
HEENT: Normocephalic
Respiratory: Clear to Auscultation
Cardiac: Irregular Rhythm
GI: Soft and Nontender
Musculoskeletal: Edema, Right Lower Extrem and Edema, Left Lower Extrem
Skin: Warm
Neuro: Awake, Alert and Oriented
Psych: Calm
Data Reviewed
-
Total Time Spent with Patient (in minutes): 45
Labs: Labs Reviewed by me (Today's labs pending last hemoglobin 7.1 platelets in leukocytes remains stable from yesterday)
[2023-09-18 09:22] LABS: % Basophils 0.6 % (0-2); % Eosinophils 7.3 % (0-6); % Immature Granulocytes 0.3 % (0-0.5); % Lymphocytes 14.4 % (20.5-51.1); % Monocytes 11.3 % (1.7-9.3); % Neutrophils 66.1 % (42.2-75.2); Absolute Eosinophils 0.3 10^3/uL (0-0.7); Absolute Lymphocytes 0.5 10^3/uL (1.2-3.4); Absolute Monocytes 0.4 10^3/uL (0.1-0.6); Absolute Neutrophils 2.4 10^3/uL (1.4-6.5); Hematocrit 23.7 % (39.0-52.0); Hemoglobin 7.6 g/dL (13.0-18.0); Mean Corp Hgb Conc. 32.1 g/dL (33.0-37.0); Mean Corpuscular Hgb 26.3 pg (27.0-31.0); Nucleated Red Blood Cells % 0 % (-); Platelet Count 63 10^3/uL (130-400); Red Blood Cell Count 2.89 10^6/uL (4.70-6.10); Red Cell Dist. Width 20.3 % (11.5-14.5); White Blood Cell Count 3.6 10^3/uL (4.8-10.8)
[2023-09-18] MEDS: STERILE WATER FOR INJECTION IV (09:28)
[2023-09-18 09:41] LABS: Blood Urea Nitrogen 51 mg/dl (9-20); Calcium 9.4 mg/dl (8.4-10.2); Carbon Dioxide 25 mmol/L (22-30); Chloride 110 mmol/L (98-107); Estimated Creatinine Clearance 31 ml/min; Glucose 71 mg/dl (70-99); Potassium 4.1 mmol/L (3.5-5.1); Sodium 137 mmol/L (135-145); eGFR 39.51
--- NOTE | 2023-09-18 09:48 | W.PN.URO.CBU ---
Today's Communication / Plan
-
continue zaragoza ad flomax
Assessment / Plan
-
urinary retention/hydro/renal insufficiency
continue zaragoza
restart eliquis
continue floma
outpt f/u for TOV
Diagnosis
-
Date of Service: September 18, 2023
-
Patient Diagnosis:
urinary retention
hydro
renal insufficiency
Subjective
-
pt awake and alert today
no complaints
urine now clear/karena
cr downtrending- 1.7
ucx with yeast only
Objective
-
Vital Signs
Temp Pulse Resp BP Pulse Ox
97.7 F 62 16 112/55 93
09/18/23 07:18 09/18/23 08:17 09/18/23 07:18 09/18/23 08:17 09/18/23 07:18
Intake and Output
09/17/23 09/18/23 09/19/23
06:59 06:59 06:59
Intake Total 720 / 720 720 / 720
Output Total 2550 / 2550 1800 / 1800
Balance -1830 / -1830 -1080 / -1080
Intake:
Oral fluids 720 / 720 720 / 720
Output:
Urine, Zaragoza 1800 / 1800
Urine, Voided 2550 / 2550
Laboratory Results
09/18/23 08:45
09/18/23 08:45
Physical Exam
-
General - no acute distress
Abdomen - soft, non-tender
[2023-09-18 11:18] VITALS: BP 87/46
[2023-09-18 11:35] VITALS: BP 99/48
[2023-09-18 11:40] VITALS: BP 107/57
[2023-09-18 11:49] LABS: Glucose - Point of Care 147 mg/dl (70-99)
[2023-09-18] MEDS: FERRLECIT 110 MG IV (13:41)
[2023-09-18 15:28] VITALS: BP 104/49
--- NOTE | 2023-09-18 16:39 | CM ---
Pt usp at [facility].
PT OT recommended SNF.
Spoke with Makayla at [facility]. Pt can get skilled on return to [facility] with Medicare.
Pt has Cespedes.
IMM given signed on chart.
[facility] need ambulance.
[facility]
report [phone]
fax [phone]
PLAN return to [facility] at ok.
[2023-09-18 16:43] LABS: Glucose - Point of Care 157 mg/dl (70-99)
[2023-09-18] MEDS: NOVOLOG FLEXPEN-LOW RESISTANCE 1 UNITS SC (17:37)
[2023-09-18] MEDS: LIPITOR 80 MG PO (17:38)
--- NOTE | 2023-09-18 18:07 | W.PN.NEPH.PH ---
Today's Communication / Plan
-
follow labs
Assessment/Plan
-
Assessment:
Right radial nerve palsy unclear etiology
chronic limited range of motion bilateral shoulders to shoulder level only
LENI on CKD 3 A baseline cr 1.2-1.3
Chronic stage I right heel ulcer
Chronic right lower extremity lymphedema
Hx CVA per CT head
Hx subdural hematoma after mechanical fall
Hx orthostatic hypotension/HTN
Anemia of chronic disease
Acute on chronic thrombocytopenia
DM2 with hyperglycemia
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
phantom leg pain
Paroxysmal A-fib
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
CAD/[place]/CABG 2009
Chronic LBBB
HLD
Chronic pain syndrome secondary to spinal stenosis on chronic opiate patch
GERD/Hx GI bleed
Hx ulcerative colitis- azathioprine
Anxiety
Chronic ambulatory dysfunction with chronic foot and ankle deformities
Plan:
A/w right wrist drop and found to have LENI
LENI likely post obstructive
Zaragoza placed for bilateral hydronephrosis noted on CT scan and now with non oliguric and LENI improvement down to 1.7
may need to resume bumex once cr stabilizes
meds adjust renal dosing, avoid nephrotoxins
BP are stable
pancytopenia-heme follows, multifactorial
afib on Eliquis too
-
-
Date of Service: September 18, 2023
CC / HPI / ROS
-
Chief Complaint:
LENI
History of Present Illness:
cr better at 1.7
BP stable, plt decreasing 63k
Remains anemic at 7.6
Review of Systems:
no cp or sob
Grossly nonoliguric with zaragoza
no other complaints
no n/v
Labs
-
Labs:
WBC 3.6 10^3/uL (4.8-10.8) L 09/18/23 08:45
RBC 2.89 10^6/uL (4.70-6.10) L 09/18/23 08:45
Hgb 7.6 g/dL (13.0-18.0) L 09/18/23 08:45
Hct 23.7 % (39.0-52.0) L 09/18/23 08:45
Plt Count 63 10^3/uL (130-400) L 09/18/23 08:45
Sodium 137 mmol/L (135-145) 09/18/23 08:45
Potassium 4.1 mmol/L (3.5-5.1) 09/18/23 08:45
Chloride 110 mmol/L (98-107) H 09/18/23 08:45
Carbon Dioxide 25 mmol/L (22-30) 09/18/23 08:45
BUN 51 mg/dl (9-20) H 09/18/23 08:45
Creatinine 1.7 mg/dL (0.7-1.3) H 09/18/23 08:45
eGFR 39.51 09/18/23 08:45
Glucose 71 mg/dl (70-99) 09/18/23 08:45
Calcium 9.4 mg/dl (8.4-10.2) 09/18/23 08:45
Albumin 3.6 g/dl (3.5-5.0) 09/14/23 13:34
Physical Exam
-
Vital Signs:
Vital Signs
Temp Pulse Resp BP Pulse Ox
97.8 F 61 18 104/49 96
09/18/23 15:28 09/18/23 15:28 09/18/23 15:28 09/18/23 15:28 09/18/23 15:28
Cardiovascular:: Regular rate and rhythm
Respiratory:: Bilateral: CTA
Lung Excursion:: Normal
Abdomen:: Nontender and Soft
Extremity Edema:: +3: Right:
Zaragoza Catheter: Yes
Other Findings::
left BKA
[2023-09-18] MEDS: ELIQUIS 2.5 MG PO (20:49)
[2023-09-18] MEDS: LANTUS 0.149999999999999994 UNITS SC (20:50)
[2023-09-18 21:28] LABS: Glucose - Point of Care 205 mg/dl (70-99)
[2023-09-18] MEDS: REMERON 30 MG PO (22:41)
[2023-09-18 23:31] VITALS: BP 103/50
[2023-09-19 06:00] VITALS: BMI 26.4
[2023-09-19 06:54] LABS: Hematocrit 21.5 % (39.0-52.0); Mean Corp Hgb Conc. 31.6 g/dL (33.0-37.0); Mean Corpuscular Hgb 26.7 pg (27.0-31.0); Mean Corpuscular Volume 84.3 fL (80.0-94.0); Platelet Count 59 10^3/uL (130-400); Red Blood Cell Count 2.55 10^6/uL (4.70-6.10); Red Cell Dist. Width 20.2 % (11.5-14.5); White Blood Cell Count 3.4 10^3/uL (4.8-10.8)
[2023-09-19 07:11] LABS: Hemoglobin 6.8 g/dL (13.0-18.0)
[2023-09-19 07:15] VITALS: BP 93/56
[2023-09-19 07:21] LABS: Blood Urea Nitrogen 52 mg/dl (9-20); Calcium 9.2 mg/dl (8.4-10.2); Carbon Dioxide 29 mmol/L (22-30); Chloride 105 mmol/L (98-107); Estimated Creatinine Clearance 28 ml/min; Glucose 91 mg/dl (70-99); Potassium 4.1 mmol/L (3.5-5.1); Sodium 139 mmol/L (135-145); eGFR 34.57
[2023-09-19 07:34] LABS: Glucose - Point of Care 93 mg/dl (70-99)
[2023-09-19] MEDS: NOVOLOG FLEXPEN-LOW RESISTANCE SC (07:54)
[2023-09-19] MEDS: PACERONE 200 MG PO (07:54)
[2023-09-19] MEDS: FLOMAX 0.400000000000000022 MG PO (07:54)
[2023-09-19] MEDS: FOLTX 1 TABLET PO (07:55)
[2023-09-19] MEDS: COREG PO (07:55)
[2023-09-19] MEDS: LYRICA 50 MG PO ×2 (07:55→21:02)
[2023-09-19] MEDS: DESENEX/MITRAZOL/ZEASORB 1 APPLIC TOPICAL ×2 (07:56→21:02)
[2023-09-19] MEDS: ELIQUIS 2.5 MG PO ×2 (07:56→21:02)
[2023-09-19] MEDS: IMURAN 75 MG PO (07:56)
[2023-09-19] MEDS: THERAGRAN 1 TABLET PO (07:57)
[2023-09-19] MEDS: PROTONIX 40 MG PO (07:57)
--- NOTE | 2023-09-19 08:30 | W.PN.HOSP.TC ---
Today's Communication/Plan
-
Will transfuse 1 unit of blood today
Continue to monitor for further hematuria which seems to be resolving
Back on reduced dose Eliquis at this point based on renal status
Continue to monitor renal numbers may have plateaued at 1.9
Assessment / Plan
Assessment / Plan
#Right radial nerve palsy unclear etiology/somewhat better this morning although disquiet extension still
#chronic limited range of motion bilateral shoulders to shoulder level only
-Right wrist splint applied
-Consult PT/OT/case management
CT head: No acute intracranial abnormalities
Suspected tiny old lacunar infarcts again noted in the right cindy and right Ginger/external capsule
Diffuse cortical atrophy with nonspecific white matter changes
#LENI on CKD 3 A/found to have bilateral hydronephrosis with significant residual requiring insertion of Cespedes catheter that will remain indwelling
#Hx orthostasis in Apr 2023 creat responded to IV fluids
Creat 2.3 /83 creat was1.3 June 29, 2023(CrCl approximately 43)
-Consult nephrology/urology
-Hold Bumex
-Did not have much response to IV fluids
-Reduce Eliquis to 2.5 mg twice daily
-Eliquis now on hold with insertion of Cespedes catheter and hematuria/resuming Eliquis with resolution of hematuria
Anemia
Multifactorial
Chronic disease and acute blood loss from hematuria
Abnormal urinalysis with many bacteria/culture not sent?
-Unclear whether symptomatic/and now growing yeast which may be colonizer and would not treat stop antibiotic
-Underlying dementia and retirement was not in diapers mostly
-Check renal bladder ultrasound/shows severe bilateral pelvicalyceal dilatation
-Will be going back to his facility on indwelling Cespedes catheter and follow-up with urology for void trial
#Chronic stage I right heel ulcer
-Patient currently wearing offloading heel boot no open areas
#Chronic right lower extremity lymphedema
-Hold Bumex
#Hx CVA per CT head
#Hx subdural hematoma after mechanical fall
tiny old lacunar infarcts again noted in the right cindy and right Ginger/external capsule
-Continue statin, Eliquis at 2.5 mg twice daily
#Hx orthostatic hypotension/HTN
Monitor orthostatic vitals
-Continue carvedilol 3.125 mg p.o. twice daily with hold parameters
#Anemia of chronic disease�normocytic
Hgb 8.4 baseline appears 7.5-9.1>> 7.0>> 6.8
-Hematuria seems to be resolving
-All iron panel levels depressed will treat with iron
-Continue Folbic
-Hematology input noted and appreciated
#Acute on chronic thrombocytopenia
PLT 75 baseline appears 130-160 June 2023
#DM2 with hyperglycemia
BS 279
-Accu-Cheks with SSI, check HgbA1c
-Lantus 15 units subcu daily 8:30 PM
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
#phantom leg pain
-Continue Lyrica 75 mg p.o. 3 times daily
#Paroxysmal A-fib
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
-Continue amiodarone 200 mg daily
-Continue Eliquis decreased dose from 5 mg twice daily to 2.5 mg twice daily given LENI on CKD 3A
#CAD/TX/CABG 2009
#Chronic LBBB
-Continue Coreg with hold parameters, statin
#HLD
-Continue statin
#Chronic pain syndrome secondary to spinal stenosis on chronic opiate patch
-Continue fentanyl patch, Lyrica
#GERD/Hx GI bleed
-Continue PPI
#Hx ulcerative colitis
-Continue azathioprine
#Anxiety
-Continue Remeron
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
PT/OT/case management consult
DVT prophylaxis
Continue STEEPLECHASE JOCKEY Eliquis/on hold after insertion of Cespedes catheter
Full code
Anticipated Discharge: Within 24 hours
Subjective/Interval History
-
Date of Service: September 19, 2023
Patient in no acute distress urine in Cespedes seems to be clearing of blood although some sediment and clots noted
Objective Data
-
Labs:
Laboratory Results
09/19/23
05:20
WBC 3.4 L
Hgb 6.8 L*
Hct 21.5 L
Plt Count 59 L
Sodium 139
Potassium 4.1
Chloride 105
Carbon Dioxide 29
BUN 52 H
Creatinine 1.9 H
Glucose 91
Calcium 9.2
Vital Signs:
Vital Signs
Temp Pulse Resp BP Pulse Ox
97.7 F 62 16 95/56 94
09/19/23 07:15 09/19/23 07:55 09/19/23 07:15 09/19/23 07:55 09/19/23 07:53
I&O
09/18/23 09/19/23 09/20/23
06:59 06:59 06:59
Intake Total 720 / 720 960 / 960
Output Total 1800 / 1800 1520 / 1520
Balance -1080 / -1080 -560 / -560
Review of Systems
-
Unable to obtain full review of systems at this time due to: Dementia
History Source: Patient
Constitutional: Reports Fatigue and Weakness
EENT: Reports No Symptoms Reported
Respiratory: Reports No Symptoms
Genitourinary: Reports Bleeding and Dark Urine
Physical Exam
-
General: No Apparent Distress
HEENT: Normocephalic
Respiratory: Clear to Auscultation
Cardiac: Irregular Rhythm
GI: Soft, Nontender and Normal Bowel Sounds
Genito-urinary: Cespedes
Skin: Warm
Neuro: Awake, Alert and Oriented
Psych: Calm
Data Reviewed
-
Total Time Spent with Patient (in minutes): 56
Labs: Labs Reviewed by me (Hemoglobin down to 6.8 from 7.8 yesterday)
[2023-09-19 10:06] VITALS: BP 95/45
[2023-09-19 10:24] VITALS: BP 100/47
[2023-09-19 10:31] VITALS: BMI 26.4
--- NOTE | 2023-09-19 10:32 | W.PN.URO.CBU ---
Today's Communication / Plan
-
Keep Zaragoza
Discussed plan with at bedside and son by phone
Assessment / Plan
-
urinary retention/hydro/renal insufficiency
continue zaragoza
continue eliquis
continue flomax
outpt f/u for TOV
Diagnosis
-
Date of Service: September 19, 2023
-
Patient Diagnosis:
urinary retention
hydro
renal insufficiency
Subjective
-
Comfortable
Receiving blood transfusion
Objective
-
Vital Signs
Temp Pulse Resp BP Pulse Ox
97 F 61 16 95/45 94
09/19/23 10:06 09/19/23 10:06 09/19/23 10:06 09/19/23 10:06 09/19/23 07:53
Intake and Output
09/18/23 09/19/23 09/20/23
06:59 06:59 06:59
Intake Total 720 / 720 960 / 960 0 / 0
Output Total 1800 / 1800 1520 / 1520
Balance -1080 / -1080 -560 / -560 0 / 0
Intake:
Oral fluids 720 / 720 480 / 480
IV fluids (Total) 480 / 480
Blood Product Amount Infused ( 0 / 0
mL)
Packed Rbc Leukoreduced Unit 0 / 0
[id number]
Output:
Urine, Zaragoza 1800 / 1800 1520 / 1520
Laboratory Results
09/19/23 05:20
09/19/23 05:20
Review of Systems
-
Constitutional: Fatigue
Respiratory: No Symptoms
Cardiac: No Symptoms
Abdomen/GI: No Symptoms
Physical Exam
-
Abdomen - soft, non-tender
Genitalia - normal with Zaragoza draining karena urine
[2023-09-19 11:57] LABS: Glucose - Point of Care 179 mg/dl (70-99)
[2023-09-19 12:40] VITALS: BP 123/61
--- NOTE | 2023-09-19 12:41 | PTCARENOTE ---
PATRIA's unit # [id number] infused via Rt upper forearm site without sx of infiltration; pt radha well, no adverse reaction noted. VSS. Resting comfortably at present. Will continue to monitor.
[2023-09-19] MEDS: NOVOLOG FLEXPEN-LOW RESISTANCE 300 UNITS SC (12:48)
[2023-09-19] MEDS: STERILE WATER FOR INJECTION IV (12:49)
[2023-09-19] MEDS: FERRLECIT 110 MG IV (14:00)
[2023-09-19] MEDS: FLUSH (NSS) 1 FLUSH IV (14:00)
[2023-09-19 15:10] VITALS: BP 115/62
--- NOTE | 2023-09-19 15:16 | W.PN.NEPH.PH ---
Today's Communication / Plan
-
cont monitor labs
Assessment/Plan
-
Assessment:
Right radial nerve palsy unclear etiology
chronic limited range of motion bilateral shoulders to shoulder level only
LENI on CKD 3 A baseline cr 1.2-1.3
Chronic stage I right heel ulcer
Chronic right lower extremity lymphedema
Hx CVA per CT head
Hx subdural hematoma after mechanical fall
Hx orthostatic hypotension/HTN
Anemia of chronic disease
Acute on chronic thrombocytopenia
DM2 with hyperglycemia
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
phantom leg pain
Paroxysmal A-fib
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
CAD/SC/CABG 2009
Chronic LBBB
HLD
Chronic pain syndrome secondary to spinal stenosis on chronic opiate patch
GERD/Hx GI bleed
Hx ulcerative colitis- azathioprine
Anxiety
Chronic ambulatory dysfunction with chronic foot and ankle deformities
Plan:
A/w right wrist drop and found to have LENI
LENI likely post obstructive, cr seem halted at 1.9
Zaragoza placed for bilateral hydronephrosis noted on CT scan
may need to resume bumex once cr stabilizes
meds adjust renal dosing, avoid nephrotoxins
BP are stable
pancytopenia-heme follows, multifactorial, hb low and for PRBC
afib on Eliquis
d/w pt
-
-
Date of Service: September 19, 2023
CC / HPI / ROS
-
Chief Complaint:
LENI
History of Present Illness:
cr up at 1.9
BP stable, plt decreasing 63k
Remains anemic at 6.8 low
Review of Systems:
no cp or sob
Grossly nonoliguric with zaragoza
no other complaints
no n/v
Labs
-
Labs:
WBC 3.4 10^3/uL (4.8-10.8) L 09/19/23 05:20
RBC 2.55 10^6/uL (4.70-6.10) L 09/19/23 05:20
Hgb 6.8 g/dL (13.0-18.0) L* 09/19/23 05:20
Hct 21.5 % (39.0-52.0) L 09/19/23 05:20
Plt Count 59 10^3/uL (130-400) L 09/19/23 05:20
Sodium 139 mmol/L (135-145) 09/19/23 05:20
Potassium 4.1 mmol/L (3.5-5.1) 09/19/23 05:20
Chloride 105 mmol/L (98-107) 09/19/23 05:20
Carbon Dioxide 29 mmol/L (22-30) 09/19/23 05:20
BUN 52 mg/dl (9-20) H 09/19/23 05:20
Creatinine 1.9 mg/dL (0.7-1.3) H 09/19/23 05:20
eGFR 34.57 09/19/23 05:20
Glucose 91 mg/dl (70-99) 09/19/23 05:20
Calcium 9.2 mg/dl (8.4-10.2) 09/19/23 05:20
Albumin 3.6 g/dl (3.5-5.0) 09/14/23 13:34
Physical Exam
-
Vital Signs:
Vital Signs
Temp Pulse Resp BP Pulse Ox
98 F 61 18 123/61 94
09/19/23 12:40 09/19/23 12:40 09/19/23 12:40 09/19/23 12:40 09/19/23 07:53
Cardiovascular:: Regular rate and rhythm
Respiratory:: Bilateral: CTA
Lung Excursion:: Normal
Abdomen:: Nontender and Soft
Extremity Edema:: +2: Right:
Other Findings::
left AKA
--- NOTE | 2023-09-19 15:53 | PTCARENOTE ---
Pt AAOx3; WIYOT; sl forgetful at times. GARZA; legs weak; wears Rt forearm split at all times. Assists with Q 2 hr turns. VSS. Pt has +2 edema of perineum/penis/Lt thigh. On room air- no SOB noted. Abd large, soft, radha PO well. Cespedes P/I large
amts cloudy karena urine with large amts white sediment. Resting in bed at present, no c/o. Will continue to monitor.
[2023-09-19 16:30] LABS: Glucose - Point of Care 228 mg/dl (70-99)
[2023-09-19] MEDS: NOVOLOG FLEXPEN-LOW RESISTANCE 2 UNITS SC (16:37)
[2023-09-19] MEDS: LIPITOR 80 MG PO (17:26)
[2023-09-19 20:46] LABS: Glucose - Point of Care 172 mg/dl (70-99)
[2023-09-19] MEDS: REMERON 30 MG PO (21:02)
[2023-09-19] MEDS: COREG 3.125 MG PO (21:02)
[2023-09-19] MEDS: LANTUS 0.149999999999999994 UNITS SC (21:02)
[2023-09-19 23:59] VITALS: BP 99/52
[2023-09-20 05:26] VITALS: BMI 26.6
[2023-09-20 06:50] LABS: Hematocrit 22.8 % (39.0-52.0); Hemoglobin 7.4 g/dL (13.0-18.0); Mean Corp Hgb Conc. 32.5 g/dL (33.0-37.0); Mean Corpuscular Hgb 26.5 pg (27.0-31.0); Mean Corpuscular Volume 81.7 fL (80.0-94.0); Platelet Count 57 10^3/uL (130-400); Red Blood Cell Count 2.79 10^6/uL (4.70-6.10); Red Cell Dist. Width 19.8 % (11.5-14.5); White Blood Cell Count 3.5 10^3/uL (4.8-10.8)
[2023-09-20 07:11] LABS: Blood Urea Nitrogen 49 mg/dl (9-20); Calcium 9.1 mg/dl (8.4-10.2); Chloride 109 mmol/L (98-107); Estimated Creatinine Clearance 35 ml/min; Glucose 109 mg/dl (70-99); Potassium 4.4 mmol/L (3.5-5.1); Sodium 137 mmol/L (135-145); eGFR 45.91
[2023-09-20 07:15] LABS: Glucose - Point of Care 117 mg/dl (70-99)
[2023-09-20 07:22] LABS: Carbon Dioxide 26 mmol/L (22-30)
[2023-09-20 07:23] VITALS: BP 113/61
[2023-09-20] MEDS: NOVOLOG FLEXPEN-LOW RESISTANCE SC (07:45)
[2023-09-20] MEDS: THERAGRAN 1 TABLET PO (09:20)
[2023-09-20] MEDS: PACERONE 200 MG PO (09:20)
[2023-09-20] MEDS: FLOMAX 0.400000000000000022 MG PO (09:23)
[2023-09-20] MEDS: COREG 3.125 MG PO (09:23)
[2023-09-20] MEDS: FOLTX 1 TABLET PO (09:23)
[2023-09-20] MEDS: PROTONIX 40 MG PO (09:23)
[2023-09-20] MEDS: LYRICA 50 MG PO ×2 (09:23→20:51)
[2023-09-20] MEDS: ELIQUIS 2.5 MG PO ×2 (09:24→20:52)
[2023-09-20] MEDS: IMURAN 75 MG PO (09:24)
[2023-09-20] MEDS: DESENEX/MITRAZOL/ZEASORB 1 APPLIC TOPICAL ×2 (09:25→20:55)
--- NOTE | 2023-09-20 09:26 | W.PN.HOSP.TC ---
Today's Communication/Plan
-
Hemodynamically stable
Do not see any further need for blood transfusion imminently
Creatinine still trending down
Will await nephrology input as to restart of Bumex
Indwelling Cespedes catheter remain at time of discharge and follow-up for void trial as outpatient with urology
Recheck BMP in a.m.
Assessment / Plan
Assessment / Plan
#Right radial nerve palsy unclear etiology/somewhat better this morning although disquiet extension still
#chronic limited range of motion bilateral shoulders to shoulder level only
-Right wrist splint applied
-Consult PT/OT/case management
CT head: No acute intracranial abnormalities
Suspected tiny old lacunar infarcts again noted in the right cindy and right Ginger/external capsule
Diffuse cortical atrophy with nonspecific white matter changes
#LENI on CKD 3 A/found to have bilateral hydronephrosis with significant residual requiring insertion of Cespedes catheter that will remain indwelling
#Hx orthostasis in Apr 2023 creat responded to IV fluids
Creat 2.3 83 creat was1.3 June 29, 2023(CrCl approximately 43)
-Consult nephrology/urology
-Hold Bumex
-Did not have much response to IV fluids
-Reduce Eliquis to 2.5 mg twice daily
-After insertion of Cespedes catheter waited 24 hours prior to resuming Eliquis at low-dose he/no further hematuria after insertion
Anemia
Multifactorial
Chronic disease and acute blood loss from hematuria
Abnormal urinalysis with many bacteria/culture not sent?
-Unclear whether symptomatic/and now growing yeast which may be colonizer and would not treat stop antibiotic
-Underlying dementia and half-way was not in diapers mostly
-Check renal bladder ultrasound/shows severe bilateral pelvicalyceal dilatation
-Will be going back to his facility on indwelling Cespedes catheter and follow-up with urology for void trial
-Hemoglobin up to 7.4 after single unit of packed red blood cells yesterday
#Chronic stage I right heel ulcer
-Patient currently wearing offloading heel boot no open areas
#Chronic right lower extremity lymphedema
-Hold Bumex
#Hx CVA per CT head
#Hx subdural hematoma after mechanical fall
tiny old lacunar infarcts again noted in the right cindy and right Ginger/external capsule
-Continue statin, Eliquis at 2.5 mg twice daily
#Hx orthostatic hypotension/HTN
Monitor orthostatic vitals
-Continue carvedilol 3.125 mg p.o. twice daily with hold parameters
#Anemia of chronic disease�normocytic
Hgb 8.4 baseline appears 7.5-9.1>> 7.0>> 6.8
-Hematuria seems to be resolving
-All iron panel levels depressed will treat with iron
-Continue Folbic
-Hematology input noted and appreciated
#Acute on chronic thrombocytopenia
PLT 75 baseline appears 130-160 June 2023
#DM2 with hyperglycemia
BS 279
-Accu-Cheks with SSI, check HgbA1c
-Lantus 15 units subcu daily 8:30 PM
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
#phantom leg pain
-Continue Lyrica 75 mg p.o. 3 times daily
#Paroxysmal A-fib
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
-Continue amiodarone 200 mg daily
-Continue Eliquis decreased dose from 5 mg twice daily to 2.5 mg twice daily given LENI on CKD 3A
#CAD/[place]/CABG 2009
#Chronic LBBB
-Continue Coreg with hold parameters, statin
#HLD
-Continue statin
#Chronic pain syndrome secondary to spinal stenosis on chronic opiate patch
-Continue fentanyl patch, Lyrica
#GERD/Hx GI bleed
-Continue PPI
#Hx ulcerative colitis
-Continue azathioprine
#Anxiety
-Continue Remeron
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
PT/OT/case management consult
DVT prophylaxis
Continue FILLING SEPARATOR Eliquis/on hold after insertion of Cespedes catheter
Full code
Anticipated Discharge: Within 24 hours
Subjective/Interval History
-
Date of Service: September 20, 2023
No complaints of shortness of breath or chest no further blood in Cespedes bag
Objective Data
-
Labs:
Laboratory Results
09/20/23
06:40
WBC 3.5 L
Hgb 7.4 L
Hct 22.8 L
Plt Count 57 L
Sodium 137
Potassium 4.4
Chloride 109 H
Carbon Dioxide 26
BUN 49 H
Creatinine 1.5 H
Glucose 109 H
Calcium 9.1
Vital Signs:
Vital Signs
Temp Pulse Resp BP Pulse Ox
98.8 F 62 16 113/61 95
09/20/23 07:23 09/20/23 07:23 09/20/23 07:23 09/20/23 07:23 09/20/23 07:23
I&O
09/19/23 09/20/23 09/21/23
06:59 06:59 06:59
Intake Total 960 / 960 1960 / 1960
Output Total 1520 / 1520 1300 / 1300
Balance -560 / -560 660 / 660
Review of Systems
-
Unable to obtain full review of systems at this time due to: Dementia and Other (Hard of hearing)
History Source: Patient
Constitutional: Reports Fatigue and Weakness
Cardiac: Reports No Symptoms
Abdomen/GI: Reports No Symptoms
Physical Exam
-
General: Well Developed
HEENT: Normocephalic
Respiratory: Clear to Auscultation
Cardiac: Irregular Rhythm
GI: Soft and Nontender
Genito-urinary: Cespedes; Negative Bloody Urine
Skin: Warm
Neuro: Awake, Alert and Oriented
Data Reviewed
-
Total Time Spent with Patient (in minutes): 45
Labs: Labs Reviewed by me (Hemoglobin up to 7.4 after blood transfusion/thrombocytopenia stable at 57/creatinine now trending down further to 1.5)
[2023-09-20 12:54] LABS: Glucose - Point of Care 220 mg/dl (70-99)
[2023-09-20] MEDS: NOVOLOG FLEXPEN-LOW RESISTANCE 2 UNITS SC ×2 (13:10→17:54)
--- NOTE | 2023-09-20 13:53 | W.PN.NEPH.PH ---
Today's Communication / Plan
-
labs in am
Assessment/Plan
-
Assessment:
Right radial nerve palsy unclear etiology
chronic limited range of motion bilateral shoulders to shoulder level only
LENI on CKD 3 A baseline cr 1.2-1.3
Chronic stage I right heel ulcer
Chronic right lower extremity lymphedema
Hx CVA per CT head
Hx subdural hematoma after mechanical fall
Hx orthostatic hypotension/HTN
Anemia of chronic disease
Acute on chronic thrombocytopenia
DM2 with hyperglycemia
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
phantom leg pain
Paroxysmal A-fib
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
CAD/NH/CABG 2009
Chronic LBBB
HLD
Chronic pain syndrome secondary to spinal stenosis on chronic opiate patch
GERD/Hx GI bleed
Hx ulcerative colitis- azathioprine
Anxiety
Chronic ambulatory dysfunction with chronic foot and ankle deformities
Plan:
A/w right wrist drop and found to have LENI
LENI likely post obstructive, cr better at 1.5
Zaragoza placed for bilateral hydronephrosis noted on CT scan, non oliguric
may need to resume bumex once cr stabilizes
BP are stable
pancytopenia-heme follows, multifactorial, s/p PRBC
d/w pt
-
-
Date of Service: September 20, 2023
CC / HPI / ROS
-
Chief Complaint:
LENI
History of Present Illness:
cr better at 1.5
BP stable, plt decreasing 57k, hb better at 7.4 post PRBC
Review of Systems:
no cp or sob
Grossly nonoliguric with zaragoza
no other complaints
no n/v
Labs
-
Labs:
WBC 3.5 10^3/uL (4.8-10.8) L 09/20/23 06:40
RBC 2.79 10^6/uL (4.70-6.10) L 09/20/23 06:40
Hgb 7.4 g/dL (13.0-18.0) L 09/20/23 06:40
Hct 22.8 % (39.0-52.0) L 09/20/23 06:40
Plt Count 57 10^3/uL (130-400) L 09/20/23 06:40
Sodium 137 mmol/L (135-145) 09/20/23 06:40
Potassium 4.4 mmol/L (3.5-5.1) 09/20/23 06:40
Chloride 109 mmol/L (98-107) H 09/20/23 06:40
Carbon Dioxide 26 mmol/L (22-30) 09/20/23 06:40
BUN 49 mg/dl (9-20) H 09/20/23 06:40
Creatinine 1.5 mg/dL (0.7-1.3) H 09/20/23 06:40
eGFR 45.91 09/20/23 06:40
Glucose 109 mg/dl (70-99) H 09/20/23 06:40
Calcium 9.1 mg/dl (8.4-10.2) 09/20/23 06:40
Albumin 3.6 g/dl (3.5-5.0) 09/14/23 13:34
Physical Exam
-
Vital Signs:
Vital Signs
Temp Pulse Resp BP Pulse Ox
98.8 F 68 16 138/72 95
09/20/23 07:23 09/20/23 09:23 09/20/23 07:23 09/20/23 09:23 09/20/23 09:30
Cardiovascular:: Regular rate and rhythm
Respiratory:: Bilateral: CTA
Lung Excursion:: Normal
Abdomen:: Nontender and Soft
Extremity Edema:: +2: Right:
Zaragoza Catheter: Yes
Other Findings::
left AKA
[2023-09-20 15:15] VITALS: BP 99/47
[2023-09-20 16:34] LABS: Glucose - Point of Care 215 mg/dl (70-99)
[2023-09-20] MEDS: LIPITOR 80 MG PO (17:54)
[2023-09-20] MEDS: REMERON 30 MG PO (20:51)
[2023-09-20] MEDS: COREG PO (21:03)
[2023-09-20 21:19] LABS: Glucose - Point of Care 215 mg/dl (70-99)
[2023-09-20] MEDS: LANTUS 0.149999999999999994 UNITS SC (22:16)
[2023-09-20] MEDS: DURAGESIC 25 MCG/HR PATCH 1 PATCH TRANSDERM (22:19)
[2023-09-20 23:22] VITALS: BP 103/50
--- NOTE | 2023-09-21 05:12 | PTCARENOTE ---
Pt aaox3 able to make his needs known. Denies pain, resting comfortably.Pt refusing o7orrug was encouraged multiple times. Plan of care continued. Call cobos in reach. Pt fentanyl patch from 4th was wasted with 2nd RN Shannon & new patch was placed on
Left chest wall.
[2023-09-21 05:27] VITALS: BMI 26.8
[2023-09-21 07:19] LABS: Hemoglobin 7.8 g/dL (13.0-18.0); Mean Corp Hgb Conc. 32.5 g/dL (33.0-37.0); Mean Corpuscular Hgb 26.6 pg (27.0-31.0); Mean Corpuscular Volume 81.9 fL (80.0-94.0); Platelet Count 59 10^3/uL (130-400); Red Blood Cell Count 2.93 10^6/uL (4.70-6.10); Red Cell Dist. Width 20.1 % (11.5-14.5); White Blood Cell Count 3.7 10^3/uL (4.8-10.8)
[2023-09-21 07:25] LABS: Glucose - Point of Care 82 mg/dl (70-99)
[2023-09-21 07:55] VITALS: BP 114/57
--- NOTE | 2023-09-21 08:12 | W.PN.HOSP.TC ---
Today's Communication/Plan
-
Nephrology reeval in terms of diuretics. Recheck hemoglobin and creatinine in a.m. Discharge planning in progress.
Assessment / Plan
Assessment / Plan
Physical exam:
General: Chronically ill
HEENT: Normocephalic, Atraumatic and Moist Mucous Membranes
Respiratory: Clear to Auscultation; Negative Wheezes, Rales or Rhonchi
Cardiac: Regular Rhythm and S1/S2
GI: Soft, Nontender and Nondistended
Musculoskeletal: Left BKA. Cespedes catheter in place. No Clubbing, No Cyanosis and No Edema
Neuro: Awake, Alert and Oriented
Psych: Calm
A/P:
#Right radial nerve palsy unclear etiology/somewhat better this morning although disquiet extension still
#chronic limited range of motion bilateral shoulders to shoulder level only
-Right wrist splint applied
-Consult PT/OT/case management
CT head: No acute intracranial abnormalities
Suspected tiny old lacunar infarcts again noted in the right cindy and right Ginger/external capsule
Diffuse cortical atrophy with nonspecific white matter changes
#LENI on CKD 3 A/found to have bilateral hydronephrosis with significant residual requiring insertion of Cespedes catheter that will remain indwelling
#Hx orthostasis in Apr 2023 creat responded to IV fluids
Creat 2.3 /83 creat was1.3 June 29, 2023(CrCl approximately 43)--> creatinine 1.4 today
-Consulted nephrology/urology
-Holding Bumex
-Did not have much response to IV fluids
-Reduce Eliquis to 2.5 mg twice daily
-After insertion of Cespedes catheter waited 24 hours prior to resuming Eliquis at low-dose he/no further hematuria after insertion
-PT recommend skilled rehab
-Nephrology to decide upon restarting diuretics prior to discharge
-CM to work on SNF
Anemia
Multifactorial
Chronic disease and acute blood loss from hematuria
Abnormal urinalysis with many bacteria/culture not sent?
-Unclear whether symptomatic/and now growing yeast which may be colonizer and would not treat stop antibiotic
-Underlying dementia and fdc was not in diapers mostly
-Check renal bladder ultrasound/shows severe bilateral pelvicalyceal dilatation
-Will be going back to his facility on indwelling Cespedes catheter and follow-up with urology for void trial
-Hemoglobin up after single unit of packed red blood cell day before yesterday. Hb 7.8 today
#Chronic stage I right heel ulcer
-Patient currently wearing offloading heel boot no open areas
#Chronic right lower extremity lymphedema
-Holding Bumex
#Hx CVA per CT head
#Hx subdural hematoma after mechanical fall
tiny old lacunar infarcts again noted in the right cindy and right Ginger/external capsule
-Continue statin, Eliquis at 2.5 mg twice daily
#Hx orthostatic hypotension/HTN
Monitor orthostatic vitals
-Continue carvedilol 3.125 mg p.o. twice daily with hold parameters
#Anemia of chronic disease�normocytic
Hgb 8.4 baseline appears 7.5-9.1>> 7.0>> 6.8-->7.4-->7.8
-Hematuria seems to be resolving
-All iron panel levels depressed will treat with iron
-Continue Folbic
-Hematology input noted and appreciated
#Acute on chronic thrombocytopenia
PLT 75 baseline appears 130-160 June 2023-->today 59
#DM2 with hyperglycemia
BS 82 today
-Accu-Cheks with SSI, check HgbA1c
-Lantus 15 units subcu daily 8:30 PM
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
#phantom leg pain
-Continue Lyrica 75 mg p.o. 3 times daily
#Paroxysmal A-fib
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
-Continue amiodarone 200 mg daily
-Continue Eliquis decreased dose from 5 mg twice daily to 2.5 mg twice daily given LENI on CKD 3A
#CAD/[place]/CABG 2009
#Chronic LBBB
-Continue Coreg with hold parameters, statin
#HLD
-Continue statin
#Chronic pain syndrome secondary to spinal stenosis on chronic opiate patch
-Continue fentanyl patch, Lyrica
#GERD/Hx GI bleed
-Continue PPI
#Hx ulcerative colitis
-Continue azathioprine
#Anxiety
-Continue Remeron
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
PT/OT/case management consult
DVT prophylaxis
Continue GRIPPER ATTACHER Eliquis/on hold after insertion of Cespedes catheter
Full code
Anticipated Discharge: 24 - 48 hours
Subjective/Interval History
-
Date of Service: September 21, 2023
Patient denies any chest pain or shortness of breath. Denies any nausea or vomiting.
Objective Data
-
Labs:
Laboratory Results
09/21/23
07:00
WBC 3.7 L
Hgb 7.8 L
Hct 24.0 L
Plt Count 59 L
Sodium Pending
Potassium Pending
Chloride Pending
Carbon Dioxide Pending
BUN Pending
Creatinine Pending
Glucose Pending
Calcium Pending
Vital Signs:
Vital Signs
Temp Pulse Resp BP Pulse Ox
98.2 F 63 18 103/50 97
09/20/23 23:22 09/20/23 23:22 09/20/23 23:22 09/20/23 23:22 09/20/23 23:22
I&O
09/20/23 09/21/23 09/22/23
06:59 06:59 06:59
Intake Total 1959 / 1959 1140 / 1140
Output Total 1300 / 1300 1850 / 185
Balance 660 / 660 -710 / -710
[2023-09-21 08:40] LABS: Blood Urea Nitrogen 47 mg/dl (9-20); Calcium 9.3 mg/dl (8.4-10.2); Carbon Dioxide 22 mmol/L (22-30); Chloride 110 mmol/L (98-107); Estimated Creatinine Clearance 37 ml/min; Glucose 75 mg/dl (70-99); Potassium 4.5 mmol/L (3.5-5.1); Sodium 135 mmol/L (135-145); eGFR 49.87
[2023-09-21] MEDS: NOVOLOG FLEXPEN-LOW RESISTANCE SC (10:27)
[2023-09-21] MEDS: FLOMAX 0.400000000000000022 MG PO (10:33)
[2023-09-21] MEDS: PACERONE 200 MG PO (10:33)
[2023-09-21] MEDS: FOLTX 1 TABLET PO (10:33)
[2023-09-21] MEDS: COREG 3.125 MG PO (10:34)
[2023-09-21] MEDS: DESENEX/MITRAZOL/ZEASORB 1 APPLIC TOPICAL ×2 (10:35→20:56)
[2023-09-21] MEDS: ELIQUIS 2.5 MG PO ×2 (10:35→20:57)
[2023-09-21] MEDS: THERAGRAN 1 TABLET PO (10:36)
[2023-09-21] MEDS: LYRICA 50 MG PO ×2 (10:36→20:58)
[2023-09-21] MEDS: IMURAN 75 MG PO (10:36)
[2023-09-21] MEDS: PROTONIX 40 MG PO (10:37)
[2023-09-21 10:53] LABS: Reticulocyte Count 2.1 % (0.4-2.8)
[2023-09-21 12:13] LABS: Glucose - Point of Care 247 mg/dl (70-99)
[2023-09-21] MEDS: NOVOLOG FLEXPEN-LOW RESISTANCE 2 UNITS SC ×2 (12:16→17:09)
--- NOTE | 2023-09-21 13:08 | WOUNDNOTE ---
WO RN NOTE: Visited patient for new stage 1 sacral wound that was found on HAP report. Patient does have a sacral stage 1. Left heel wounds appears stable since prior visit. Dressing and fiber-filled boot intact. Sacral foam ordered from [facility] by
this software writer. Per staff, patient refuses frequent repositioning. This software writer instructed patient and on importance of off-loading sacrum to avoid pressure injury. Moisture managed with catheter. Patient and report excellent appetite. Static
air overlay properly inflated. Updated RN, Tom on plan and updated care plan.
--- NOTE | 2023-09-21 13:55 | W.PN.NEPH.PH ---
Today's Communication / Plan
-
- restart bumex
Assessment/Plan
-
Assessment:
Right radial nerve palsy unclear etiology
chronic limited range of motion bilateral shoulders to shoulder level only
LENI on CKD 3 A baseline cr 1.2-1.3
Chronic stage I right heel ulcer
Chronic right lower extremity lymphedema
Hx CVA per CT head
Hx subdural hematoma after mechanical fall
Hx orthostatic hypotension/HTN
Anemia of chronic disease
Acute on chronic thrombocytopenia
DM2 with hyperglycemia
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
phantom leg pain
Paroxysmal A-fib
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
CAD/CT/CABG 2009
Chronic LBBB
HLD
Chronic pain syndrome secondary to spinal stenosis on chronic opiate patch
GERD/Hx GI bleed
Hx ulcerative colitis- azathioprine
Anxiety
Chronic ambulatory dysfunction with chronic foot and ankle deformities
Plan:
A/w right wrist drop and found to have LENI
LENI likely post obstructive, cr better at 1.4
Zaragoza placed for bilateral hydronephrosis noted on CT scan, non oliguric
restarted home bumex of 1mg daily
BP are stable
pancytopenia-heme follows, multifactorial, s/p PRBC
d/w pt
-
-
Date of Service: September 21, 2023
CC / HPI / ROS
-
Chief Complaint:
LENI
History of Present Illness:
cr better at 1.4
BP stable, plt decreasing 59k, hb better at 7.8 post PRBC
Review of Systems:
no cp or sob
Grossly nonoliguric with zaragoza
no other complaints
no n/v
Labs
-
Labs:
WBC 3.7 10^3/uL (4.8-10.8) L 09/21/23 07:00
RBC 2.93 10^6/uL (4.70-6.10) L 09/21/23 07:00
Hgb 7.8 g/dL (13.0-18.0) L 09/21/23 07:00
Hct 24.0 % (39.0-52.0) L 09/21/23 07:00
Plt Count 59 10^3/uL (130-400) L 09/21/23 07:00
Sodium 135 mmol/L (135-145) 09/21/23 07:00
Potassium 4.5 mmol/L (3.5-5.1) 09/21/23 07:00
Chloride 110 mmol/L (98-107) H 09/21/23 07:00
Carbon Dioxide 22 mmol/L (22-30) 09/21/23 07:00
BUN 47 mg/dl (9-20) H 09/21/23 07:00
Creatinine 1.4 mg/dL (0.7-1.3) H 09/21/23 07:00
eGFR 49.87 09/21/23 07:00
Glucose 75 mg/dl (70-99) 09/21/23 07:00
Calcium 9.3 mg/dl (8.4-10.2) 09/21/23 07:00
Albumin 3.6 g/dl (3.5-5.0) 09/14/23 13:34
Physical Exam
-
Vital Signs:
Vital Signs
Temp Pulse Resp BP Pulse Ox
98.4 F 66 18 117/48 99
09/21/23 07:55 09/21/23 10:34 09/21/23 07:55 09/21/23 10:34 09/21/23 07:55
Cardiovascular:: Regular rate and rhythm
Respiratory:: Bilateral: Coarse
Lung Excursion:: Normal
Abdomen:: Nontender and Soft
Bowel Sounds:: Normal
Extremity Edema:: None: Right: and None: Left: (L AMYA)
Zaragoza Catheter: Yes
[2023-09-21] MEDS: BUMEX 1 MG PO (14:36)
[2023-09-21 15:31] VITALS: BP 114/58; PULSE 60; O2SAT 97
[2023-09-21 15:55] VITALS: BP 103/50
[2023-09-21 16:57] LABS: Glucose - Point of Care 225 mg/dl (70-99)
[2023-09-21] MEDS: LIPITOR 80 MG PO (17:07)
--- NOTE | 2023-09-21 17:26 | CM ---
Pt shelter at [facility].
PT OT recommended SNF.
Nephrology involved.
Makayla at [facility] said. Pt can get skilled on return to [facility] with Medicare.
Pt has Cespedes.
Will need ambulance.
[facility]
report [phone]
fax [phone]
PLAN return to [facility] at [place].
[2023-09-21] MEDS: REMERON 30 MG PO (20:57)
[2023-09-21 21:20] LABS: Glucose - Point of Care 199 mg/dl (70-99)
[2023-09-21] MEDS: COREG PO (21:33)
[2023-09-21] MEDS: LANTUS 0.149999999999999994 UNITS SC (22:20)
[2023-09-21 23:55] VITALS: BP 97/50
[2023-09-22 05:40] LABS: Hematocrit 23.2 % (39.0-52.0); Hemoglobin 7.4 g/dL (13.0-18.0); Mean Corp Hgb Conc. 31.9 g/dL (33.0-37.0); Mean Corpuscular Volume 84.7 fL (80.0-94.0); Platelet Count 61 10^3/uL (130-400); Red Blood Cell Count 2.74 10^6/uL (4.70-6.10); Red Cell Dist. Width 20.6 % (11.5-14.5); White Blood Cell Count 3.2 10^3/uL (4.8-10.8)
[2023-09-22 06:00] VITALS: BMI 26.4
[2023-09-22 06:12] LABS: Blood Urea Nitrogen 44 mg/dl (9-20); Calcium 8.9 mg/dl (8.4-10.2); Carbon Dioxide 28 mmol/L (22-30); Chloride 107 mmol/L (98-107); Estimated Creatinine Clearance 33 ml/min; Glucose 46 mg/dl (70-99); Potassium 4.1 mmol/L (3.5-5.1); Sodium 138 mmol/L (135-145); eGFR 42.49
[2023-09-22 06:19] LABS: Glucose - Point of Care 49 mg/dl (70-99)
[2023-09-22 06:56] LABS: Glucose - Point of Care 95 mg/dl (70-99)
[2023-09-22 08:22] VITALS: BP 98/51
--- NOTE | 2023-09-22 08:56 | W.PN.HOSP.TC ---
Addendum entered and electronically signed by Washington Mckeon MD 09/24/23 11:08:
Correction-->Stage I sacral wound, HAP.
Addendum entered and electronically signed by Washington Mckeon MD 09/22/23 17:14:
Stage I sacral wound, POA
Original Note:
Today's Communication/Plan
-
Continue current management. Repeat CBC and BMP in AM.
Assessment / Plan
Assessment / Plan
Physical exam:
General: Chronically ill
HEENT: Normocephalic, Atraumatic and Moist Mucous Membranes
Respiratory: Clear to Auscultation; Negative Wheezes, Rales or Rhonchi
Cardiac: Regular Rhythm and S1/S2
GI: Soft, Nontender and Nondistended
Musculoskeletal: Left BKA. Cespedes catheter in place. No Clubbing, No Cyanosis and No Edema
Neuro: Awake, Alert and Oriented
Psych: Calm
A/P:
#Right radial nerve palsy unclear etiology/somewhat better this morning although disquiet extension still
#chronic limited range of motion bilateral shoulders to shoulder level only
-Right wrist splint applied
-Consult PT/OT/case management
CT head: No acute intracranial abnormalities
Suspected tiny old lacunar infarcts again noted in the right cindy and right Ginger/external capsule
Diffuse cortical atrophy with nonspecific white matter changes
#LENI on CKD 3 A/found to have bilateral hydronephrosis with significant residual requiring insertion of Cespedes catheter that will remain indwelling
#Hx orthostasis in Apr 2023 creat responded to IV fluids
Creat 2.3 83 creat was1.3 June 29, 2023(CrCl approximately 43)--> creatinine 1.6 today
-Consulted nephrology/urology
-Bumex restarted by nephrology
-Did not have much response to IV fluids
-Reduce Eliquis to 2.5 mg twice daily
-After insertion of Cespedes catheter waited 24 hours prior to resuming Eliquis at low-dose he/no further hematuria after insertion
-PT recommend skilled rehab
-Nephrology to decide upon restarting diuretics prior to discharge
-CM to work on SNF
Anemia
Multifactorial
Chronic disease and acute blood loss from hematuria
Abnormal urinalysis with many bacteria/culture not sent?
-Unclear whether symptomatic/and now growing yeast which may be colonizer and would not treat stop antibiotic
-Underlying dementia and detention was not in diapers mostly
-Check renal bladder ultrasound/shows severe bilateral pelvicalyceal dilatation
-Will be going back to his facility on indwelling Cespedes catheter and follow-up with urology for void trial
-Hemoglobin up after single unit of packed red blood. Hb 7.4 today
-If hemoglobin remains stable tomorrow, plan to discharge
-Discussed with son over the phone today on 09/21, Nirmal Garcia
#Chronic stage I right heel ulcer
-Patient currently wearing offloading heel boot no open areas
#Chronic right lower extremity lymphedema
-Bumex restarted by nephrology
#Hx CVA per CT head
#Hx subdural hematoma after mechanical fall
tiny old lacunar infarcts again noted in the right cindy and right Ginger/external capsule
-Continue statin, Eliquis at 2.5 mg twice daily
#Hx orthostatic hypotension/HTN
Monitor orthostatic vitals
-Continue carvedilol 3.125 mg p.o. twice daily with hold parameters
#Anemia of chronic disease�normocytic
Hgb 8.4 baseline appears 7.5-9.1>> 7.0>> 6.8-->7.4-->7.8-->7.4
-Hematuria seems to be resolving
-All iron panel levels depressed will treat with iron
-Continue Folbic
-Hematology input noted and appreciated
#Acute on chronic thrombocytopenia
PLT 75 baseline appears 130-160 June 2023-->today 61
#DM2 with hyperglycemia
BS low today--> hesitant to make any changes since patient becomes very hyperglycemic so overall very brittle. Will reevaluate if changes needed.
-Accu-Cheks with SSI, check HgbA1c
-Lantus 15 units subcu daily 8:30 PM
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
#phantom leg pain
-Continue Lyrica 75 mg p.o. 3 times daily
#Paroxysmal A-fib
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
-Continue amiodarone 200 mg daily
-Continue Eliquis decreased dose from 5 mg twice daily to 2.5 mg twice daily given LENI on CKD 3A
#CAD/NE/CABG 2009
#Chronic LBBB
-Continue Coreg with hold parameters, statin
#HLD
-Continue statin
#Chronic pain syndrome secondary to spinal stenosis on chronic opiate patch
-Continue fentanyl patch, Lyrica
#GERD/Hx GI bleed
-Continue PPI
#Hx ulcerative colitis
-Continue azathioprine
#Anxiety
-Continue Remeron
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
PT/OT/case management consult
DVT prophylaxis
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
Full code
Anticipated Discharge: 24 - 48 hours
Subjective/Interval History
-
Date of Service: September 22, 2023
No new complaints. Patient had episodes of hypoglycemia today but improved.
Objective Data
-
Labs:
Laboratory Results
09/22/23
04:53
WBC 3.2 L
Hgb 7.4 L
Hct 23.2 L
Plt Count 61 L
Sodium 138
Potassium 4.1
Chloride 107
Carbon Dioxide 28
BUN 44 H
Creatinine 1.6 H
Glucose 46 L*
Calcium 8.9
Vital Signs:
Vital Signs
Temp Pulse Resp BP Pulse Ox
98.3 F 61 18 98/51 95
09/22/23 08:22 09/22/23 08:22 09/22/23 08:22 09/22/23 08:22 09/22/23 08:22
I&O
09/21/23 09/22/23 09/23/23
06:59 06:59 06:59
Intake Total 1140 / 1140 1560 / 1560
Output Total 1850 / 1850 2825 / 2825
Balance -710 / -710 -1265 / -1265
[2023-09-22] MEDS: NOVOLOG FLEXPEN-LOW RESISTANCE SC (09:58)
[2023-09-22] MEDS: COREG PO ×2 (09:59→22:13)
[2023-09-22] MEDS: DESENEX/MITRAZOL/ZEASORB 1 APPLIC TOPICAL ×2 (09:59→20:00)
[2023-09-22] MEDS: FLOMAX 0.400000000000000022 MG PO (10:00)
[2023-09-22] MEDS: IMURAN 75 MG PO (10:00)
[2023-09-22] MEDS: THERAGRAN 1 TABLET PO (10:00)
[2023-09-22] MEDS: PROTONIX 40 MG PO (10:01)
[2023-09-22] MEDS: LYRICA 50 MG PO ×2 (10:01→21:53)
[2023-09-22] MEDS: FOLTX 1 TABLET PO (10:01)
[2023-09-22] MEDS: PACERONE 200 MG PO (10:02)
[2023-09-22 10:03] LABS: Glucose - Point of Care 95 mg/dl (70-99)
[2023-09-22] MEDS: ELIQUIS 2.5 MG PO ×2 (10:03→21:53)
[2023-09-22] MEDS: BUMEX PO (10:57)
--- NOTE | 2023-09-22 11:05 | PN.CDI ---
CDI
- -
CDI:
Physician Documentation Request
Admit Date: 09/14/23 19:15
Dear Doctor Mckeon,
Please review the following and provide your response in the progress notes.
Clinical Indicators:
09/21/23 13:08 - Wound Note
#Visited patient for new stage 1 sacral wound that was found on HAP report.
#Patient does have a sacral stage 1.
#Sacral foam ordered from [employer] by this senior mortgage underwriter.
#Per staff, patient refuses frequent repositioning.
#This senior mortgage underwriter instructed patient and
#...on importance of off-loading sacrum to avoid pressure injury.
Physician documentation of the type and location of wounds is required for compliant documentation.
Based on the above clinical findings and your clinical assessment,
....please provide the following in your progress note, if you agree:
Stage 1 sacral pressure injury
1. Location of the ulcer/wound, including laterality.
2. Type (etiology) of ulcer/wound:
- Traumatic wound
- Venous stasis ulcer
- Pressure (decubitus) ulcer
3. If a pressure ulcer, please also include the stage* of the ulcer:
- Stage 1 - Skin intact, non-blanchable redness
- Stage 2 - Partial thickness loss of dermis, includes intact or open blister
- Stage 3 - Full thickness tissue not including bone, tendon or muscle
- Stage 4 - Full thickness tissue loss, including exposed bone, tendon or muscle
Use of terms such as suspected, likely, concern for, or probable (associated with a specific diagnosis that is being evaluated, monitored, or treated as if it exists) are acceptable and can be coded in the inpatient setting, when documented at the
time of discharge.
Thank you,
Valery Padilla RN BSN CCDS
CDI Specialist
please contact via tiger text
Please use your independent medical judgment in providing your response.
*Source: National Pressure Ulcer Advisory Panel (NPUAP)
--- NOTE | 2023-09-22 11:20 | CM ---
Pt longterm at [facility].
PT OT recommended SNF.
LM with Makayla at [facility] about probable return tomorrow.
Pt has Cespedes.
Will need ambulance.Medical nec form needed.
[facility]
report [phone]
fax [phone]
PLAN return to [facility] at [place].
[2023-09-22 13:30] LABS: Glucose - Point of Care 273 mg/dl (70-99)
--- NOTE | 2023-09-22 13:30 | W.PN.NEPH.PH ---
Today's Communication / Plan
-
- Cr up to 1.6, decreased bumex
Assessment/Plan
-
Assessment:
Right radial nerve palsy unclear etiology
chronic limited range of motion bilateral shoulders to shoulder level only
LENI on CKD 3 A baseline cr 1.2-1.3
Chronic stage I right heel ulcer
Chronic right lower extremity lymphedema
Hx CVA per CT head
Hx subdural hematoma after mechanical fall
Hx orthostatic hypotension/HTN
Anemia of chronic disease
Acute on chronic thrombocytopenia
DM2 with hyperglycemia
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
phantom leg pain
Paroxysmal A-fib
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
CAD/CO/CABG 2009
Chronic LBBB
HLD
Chronic pain syndrome secondary to spinal stenosis on chronic opiate patch
GERD/Hx GI bleed
Hx ulcerative colitis- azathioprine
Anxiety
Chronic ambulatory dysfunction with chronic foot and ankle deformities
Plan:
A/w right wrist drop and found to have LENI
LENI likely post obstructive, cr better at 1.4 but bumped to 1.6 yesterday
Zaragoza placed for bilateral hydronephrosis noted on CT scan, non oliguric
bumex of 1mg yesterday, plan for 0.5mg today as 2.8L of urine yesterday
BPs seem relatively stable
pancytopenia-heme follows, multifactorial, s/p PRBC
d/w pt and at bedside
-
-
Date of Service: September 22, 2023
CC / HPI / ROS
-
Chief Complaint:
LENI
History of Present Illness:
cr better at 1.4
BP stable, plt stable at 61k, hb back down to 7.4 post PRBC
Review of Systems:
no cp or sob
Grossly nonoliguric with zaragoza
no other complaints
no n/v
Labs
-
Labs:
WBC 3.2 10^3/uL (4.8-10.8) L 09/22/23 04:53
RBC 2.74 10^6/uL (4.70-6.10) L 09/22/23 04:53
Hgb 7.4 g/dL (13.0-18.0) L 09/22/23 04:53
Hct 23.2 % (39.0-52.0) L 09/22/23 04:53
Plt Count 61 10^3/uL (130-400) L 09/22/23 04:53
Sodium 138 mmol/L (135-145) 04 04:53
Potassium 4.1 mmol/L (3.5-5.1) 09/22/23 04:53
Chloride 107 mmol/L (98-107) 09/22/23 04:53
Carbon Dioxide 28 mmol/L (22-30) 09/22/23 04:53
BUN 44 mg/dl (9-20) H 09/22/23 04:53
Creatinine 1.6 mg/dL (0.7-1.3) H 09/22/23 04:53
eGFR 42.49 09/22/23 04:53
Glucose 46 mg/dl (70-99) L* 09/22/23 04:53
Calcium 8.9 mg/dl (8.4-10.2) 09/22/23 04:53
Albumin 3.6 g/dl (3.5-5.0) 09/14/23 13:34
Physical Exam
-
Vital Signs:
Vital Signs
Temp Pulse Resp BP Pulse Ox
98.3 F 61 18 98/51 95
09/22/23 08:22 09/22/23 10:02 09/22/23 08:22 09/22/23 10:02 09/22/23 08:22
Cardiovascular:: Regular rate and rhythm
Respiratory:: Bilateral: Coarse
Lung Excursion:: Normal
Abdomen:: Nontender and Soft
Bowel Sounds:: Normal
Extremity Edema:: +1: Bilateral:
Zaragoza Catheter: Yes
[2023-09-22] MEDS: NOVOLOG FLEXPEN-LOW RESISTANCE 3 UNITS SC ×2 (13:52→16:54)
[2023-09-22 15:45] VITALS: BP 116/60
[2023-09-22 16:20] VITALS: BP 116/60; PULSE 61
[2023-09-22 16:25] VITALS: BP 116/60; PULSE 62; O2SAT 97
[2023-09-22 16:53] LABS: Glucose - Point of Care 260 mg/dl (70-99)
[2023-09-22] MEDS: LIPITOR 80 MG PO (16:54)
[2023-09-22 21:31] LABS: Glucose - Point of Care 240 mg/dl (70-99)
[2023-09-22] MEDS: REMERON 30 MG PO (21:53)
[2023-09-22] MEDS: LANTUS 0.149999999999999994 UNITS SC (21:53)
[2023-09-22 23:10] VITALS: BP 97/51
[2023-09-23 06:00] VITALS: BMI 26.7
--- NOTE | 2023-09-23 07:05 | W.PN.URO.CBU ---
Today's Communication / Plan
-
outpatient fu for TOV and cysto
Assessment / Plan
-
urinary retention/hydro/renal insufficiency
continue zaragoza
continue eliquis
continue flomax
outpt f/u for TOV and cysto
Diagnosis
-
Date of Service: September 23, 2023
-
Patient Diagnosis:
urinary retention
hydro
renal insufficiency
Subjective
-
pt urologically stable
zaragoza remains in place
cr sherif around 1.6
Objective
-
Vital Signs
Temp Pulse Resp BP Pulse Ox
98.7 F 62 19 97/51 97
09/22/23 23:10 09/22/23 23:10 09/22/23 23:10 09/22/23 23:10 09/22/23 23:10
Intake and Output
09/22/23 09/23/23 09/24/23
06:59 06:59 06:59
Intake Total 1560 / 1560 0 / 0
Output Total 2825 / 2825 1650 / 1650
Balance -1265 / -1265 -1650 / -1650
Intake:
Oral fluids 1560 / 1560 0 / 0
Output:
Urine, Zaragoza 2825 / 2825 1650 / 1650
Physical Exam
-
General - no acute distress- zaragoza in place- urine clear
[2023-09-23 07:23] LABS: Hemoglobin 8.1 g/dL (13.0-18.0); Mean Corp Hgb Conc. 32.4 g/dL (33.0-37.0); Mean Corpuscular Hgb 27.4 pg (27.0-31.0); Mean Corpuscular Volume 84.5 fL (80.0-94.0); Platelet Count 62 10^3/uL (130-400); Red Blood Cell Count 2.96 10^6/uL (4.70-6.10); Red Cell Dist. Width 21.3 % (11.5-14.5); White Blood Cell Count 3.4 10^3/uL (4.8-10.8)
[2023-09-23 07:55] VITALS: BP 110/58
[2023-09-23 07:55] LABS: Blood Urea Nitrogen 46 mg/dl (9-20); Calcium 9.2 mg/dl (8.4-10.2); Carbon Dioxide 29 mmol/L (22-30); Chloride 103 mmol/L (98-107); Estimated Creatinine Clearance 35 ml/min; Glucose 100 mg/dl (70-99); Potassium 4.5 mmol/L (3.5-5.1); Sodium 136 mmol/L (135-145); eGFR 45.91
[2023-09-23 08:01] LABS: Glucose - Point of Care 100 mg/dl (70-99)
[2023-09-23] MEDS: NOVOLOG FLEXPEN-LOW RESISTANCE SC (08:51)
[2023-09-23] MEDS: COREG PO (09:04)
[2023-09-23] MEDS: DESENEX/MITRAZOL/ZEASORB 1 APPLIC TOPICAL (09:04)
[2023-09-23] MEDS: BUMEX 0.5 MG PO (09:05)
[2023-09-23] MEDS: LYRICA 50 MG PO (09:05)
[2023-09-23] MEDS: FOLTX 1 TABLET PO (09:05)
[2023-09-23] MEDS: PROTONIX 40 MG PO (09:06)
[2023-09-23] MEDS: FLOMAX 0.400000000000000022 MG PO (09:06)
[2023-09-23] MEDS: PACERONE 200 MG PO (09:06)
[2023-09-23] MEDS: ELIQUIS 2.5 MG PO (09:06)
[2023-09-23] MEDS: THERAGRAN 1 TABLET PO (09:07)
[2023-09-23] MEDS: IMURAN 75 MG PO (09:07)
--- NOTE | 2023-09-23 09:28 | CM ---
MD indicated pt for dc today .
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
PT OT recommended SNF.
Spoke with pt and agree with dc to [facility] today.
IMM reviewed and signed on chart
Dave at [facility] aware of return.
Pt has Cespedes.
Will need ambulance.Medical nec form completed.
[facility]
report [phone]
fax [phone]
PLAN return to [facility]
--- NOTE | 2023-09-23 10:22 | W.PN.HOSP.TC ---
Today's Communication/Plan
-
cont current mgmt. D/C planning in progress
Assessment / Plan
Assessment / Plan
Physical exam:
General: Chronically ill
HEENT: Normocephalic, Atraumatic and Moist Mucous Membranes
Respiratory: Clear to Auscultation; Negative Wheezes, Rales or Rhonchi
Cardiac: Regular Rhythm and S1/S2
GI: Soft, Nontender and Nondistended
Musculoskeletal: Left BKA. Cespedes catheter in place. No Clubbing, No Cyanosis and No Edema
Neuro: Awake, Alert and Oriented
Psych: Calm
A/P:
#Right radial nerve palsy unclear etiology/somewhat better this morning although disquiet extension still
#chronic limited range of motion bilateral shoulders to shoulder level only
-Right wrist splint applied
-Consult PT/OT/case management
CT head: No acute intracranial abnormalities
Suspected tiny old lacunar infarcts again noted in the right cindy and right Ginger/external capsule
Diffuse cortical atrophy with nonspecific white matter changes
#LENI on CKD 3 A/found to have bilateral hydronephrosis with significant residual requiring insertion of Cespedes catheter that will remain indwelling
#Hx orthostasis in Apr 2023 creat responded to IV fluids
Creat 2.3 /83 creat was1.3 June 29, 2023(CrCl approximately 43)--> creatinine 1.6 today
-Consulted nephrology/urology
-Bumex restarted by nephrology
-Did not have much response to IV fluids
-Reduce Eliquis to 2.5 mg twice daily
-After insertion of Cespedes catheter waited 24 hours prior to resuming Eliquis at low-dose he/no further hematuria after insertion
-PT recommend skilled rehab
-Nephrology to decide upon restarting diuretics prior to discharge
-CM to work on SNF
Anemia
Multifactorial
Chronic disease and acute blood loss from hematuria
Abnormal urinalysis with many bacteria/culture not sent?
-Unclear whether symptomatic/and now growing yeast which may be colonizer and would not treat stop antibiotic
-Underlying dementia and usp was not in diapers mostly
-Check renal bladder ultrasound/shows severe bilateral pelvicalyceal dilatation
-Will be going back to his facility on indwelling Cespedes catheter and follow-up with urology for void trial
-Hemoglobin up after single unit of packed red blood. Hb 7.4 today
-If hemoglobin remains stable today and it is stable, plan to discharge
-Discussed with son over the phone on 09/21, Nirmal Garcia and discussed with today at bedside
#Chronic stage I right heel ulcer
-Patient currently wearing offloading heel boot no open areas
#Chronic right lower extremity lymphedema
-Bumex restarted by nephrology
#Hx CVA per CT head
#Hx subdural hematoma after mechanical fall
tiny old lacunar infarcts again noted in the right cindy and right Ginger/external capsule
-Continue statin, Eliquis at 2.5 mg twice daily
#Hx orthostatic hypotension/HTN
Monitor orthostatic vitals
-Continue carvedilol 3.125 mg p.o. twice daily with hold parameters
#Anemia of chronic disease�normocytic
Hgb 8.4 baseline appears 7.5-9.1>> 7.0>> 6.8-->7.4-->7.8-->7.4
-Hematuria seems to be resolving
-All iron panel levels depressed will treat with iron
-Continue Folbic
-Hematology input noted and appreciated
#Acute on chronic thrombocytopenia
PLT 75 baseline appears 130-160 June 2023-->today 61
#DM2 with hyperglycemia
BS low today--> hesitant to make any changes since patient becomes very hyperglycemic so overall very brittle. Will reevaluate if changes needed.
-Accu-Cheks with SSI, check HgbA1c
-Lantus 15 units subcu daily 8:30 PM
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
#phantom leg pain
-Continue Lyrica 75 mg p.o. 3 times daily
#Paroxysmal A-fib
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
-Continue amiodarone 200 mg daily
-Continue Eliquis decreased dose from 5 mg twice daily to 2.5 mg twice daily given LENI on CKD 3A
#CAD/NM/CABG 2009
#Chronic LBBB
-Continue Coreg with hold parameters, statin
#HLD
-Continue statin
#Chronic pain syndrome secondary to spinal stenosis on chronic opiate patch
-Continue fentanyl patch, Lyrica
#GERD/Hx GI bleed
-Continue PPI
#Hx ulcerative colitis
-Continue azathioprine
#Anxiety
-Continue Remeron
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
PT/OT/case management consult
DVT prophylaxis
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
Full code
Anticipated Discharge: Today
Subjective/Interval History
-
Date of Service: September 23, 2023
Patient denies any new complaints. No chest pain or shortness of breath
Objective Data
-
Labs:
Laboratory Results
09/23/23
06:29
WBC 3.4 L
Hgb 8.1 L
Hct 25.0 L
Plt Count 62 L
Sodium 136
Potassium 4.5
Chloride 103
Carbon Dioxide 29
BUN 46 H
Creatinine 1.5 H
Glucose 100 H
Calcium 9.2
Vital Signs:
Vital Signs
Temp Pulse Resp BP Pulse Ox
97.5 F 62 18 105/51 99
09/23/23 07:55 09/23/23 09:04 09/23/23 07:55 09/23/23 09:04 09/23/23 07:55
I&O
09/22/23 09/23/23 09/24/23
06:59 06:59 06:59
Intake Total 1560 / 1560 0 / 0
Output Total 2825 / 2825 1650 / 1650
Balance -1265 / -1265 -1650 / -1650
[2023-09-23 11:49] LABS: Glucose - Point of Care 254 mg/dl (70-99)
[2023-09-23] MEDS: NOVOLOG FLEXPEN-LOW RESISTANCE 3 UNITS SC (11:56)
--- NOTE | 2023-09-23 12:23 | W.DCSUMMARY ---
Discharge Summary
Discharge Data
Date of Admission: 09/14/23
Date of Discharge: 09/23/23
-
Pending Results: No
Hospital Course
Patient 82 years old male with multiple comorbidities including CAD, A-fib, ulcerative colitis, dementia, chronic lymphedema, CKD, hypertension, anemia, AKA due to osteomyelitis in the past, presented to the hospital with inability to move his right
wrist and found to be in acute kidney injury. Patient course complex and complicated with multiple issues. Radial nerve palsy of unclear etiology but improved overall. Urology consulted and renal function felt to be postobstructive so he was
placed on a Cespedes catheter and started on Flomax. Subsequently urology recommended to continue Cespedes catheter and outpatient follow-up for TOV and cystoscopy. Nephrology was consulted he was given IV fluid and diuretics held, and later on when
renal function stabilized he was placed on diuretic. Nephrology adjusted diuretic dose and recommended follow-up renal function as outpatient. He was also given antibiotics for possible UTI. Cultures negative but jessica in urine and most likely
contaminant. He was also seen by hematology due to his pancytopenia. He had blood transfusion and iron replacement. Hematology felt pancytopenia to be multifactorial and recommended continued follow-up as outpatient. PT OT recommended skilled
rehab. Patient is hemodynamically stable and afebrile. His labs demonstrate stability with hemoglobin 8.1 g and creatinine 1.5. Going to SNF for further rehabilitation.
Discharge duration: 37 minutes
Discharge Plan
-
Patient Disposition: Assisted/SNF
Discharge Diagnosis/Procedures: Radial nerve palsy. Acute kidney injury. Chronic kidney disease stage III. Anemia. Chronic stage I right heel ulcer chronic right lower extremity edema. History of stroke in the past. History of orthostatic
hypotension. History of chronic thrombocytopenia.
Diet: Low Cholesterol
Activity: As tolerated
Blood Work: Please PCP to order CBC, BMP within 1 week
Specialty Instructions: Weigh Daily- Call MD for wt gain/loss 3 lbs overnight/5 lbs in 1 week
Activity Restrictions/Additional Instructions:
Wound Care Instructions
foams to L heel and ankles change q 3 days. TruVue lite boot when in bed. Globoped half shoe when oob
Sacrum- Apply Sacral Silicone border foam. Change Q 3 days and PRN if loose or soiled.
Referrals:
Shaquille Mata MD [Family Provider] - in less than 1 week
Prescriptions:
New
tamsulosin 0.4 mg Capsule
0.4 mg PO DAILY 30 Days Qty: 30 0RF
bumetanide 0.5 mg Tablet
0.5 mg PO DAILY 30 Days Qty: 30 0RF
Eliquis 2.5 mg Tablet
2.5 mg PO BID Qty: 60 0RF
Continued
pantoprazole 40 mg Tablet,Delayed Release (Dr/Ec)
40 mg PO DAILY
atorvastatin 80 MG tablet
80 mg PO QPM
Folbic 2.5-25-2 mg Tablet
1 tab PO DAILY
carvedilol 3.125 mg Tablet
3.125 mg PO BID Qty: 60 0RF
amiodarone 200 mg tablet
200 mg PO DAILY
multivitamin Tablet
1 tab PO DAILY
insulin glargine [Lantus U-100 Insulin] 100 unit/mL Solution
15 unit SC DAILY@2029
mirtazapine 30 mg tablet
30 mg PO DAILY@2029
acetaminophen 325 mg Tablet
650 mg PO Q4H PRN (Reason: mild pain/fever)
bisacodyl 10 mg Suppository
10 mg IL DAILY PRN (Reason: no BM or MOM/lactulose ineffective)
fluticasone propionate 50 mcg/actuation [place],Suspension
1 spray INTRANASAL QPM
insulin lispro [Humalog KwikPen Insulin] 100 unit/mL Insulin Pen
0 - 12 sliding scale dose SC TID@0730,1230,1730
Rx Instructions:
if 71-150= 0 units; 151-200= 2 units; 201-250= 4 units; 251-300= 6 units; 301-350= 8 units; 351-400= 10 units; >400=12 units, call MD
pregabalin [Lyrica] 75 mg Capsule
75 mg PO TID
lactulose 20 gram/30 mL Solution
20 g PO HS PRN (Reason: Constipation)
naloxone [Narcan] 4 mg/actuation [place],Non-Aerosol
4 mg INTRANASAL Q2M PRN (Reason: constricted pupils,loss of consc,slow breathing)
azathioprine 75 mg Tablet
75 mg PO DAILY
fentanyl 25 mcg/hr patch 72 hour
1 patch transdermal Q72H Qty: 1 0RF
Patient Comments:
qpm
Discontinued
glimepiride 2 MG tablet
2 mg PO DAILY
Eliquis 5 MG tablet
5 mg PO BID
bumetanide 1 mg Tablet
1 mg PO DAILY
Discharge Orders:
Discharge Patient (As Directed); Ordered 09/23/23
Ordered By: Washington Mckeon
Discharge Date and Time
Discharge Date/Time: 09/23/23 16:50
Print Language: BELARUSIAN
[2023-09-23 16:00] VITALS: BP 104/53
--- NOTE | 2023-09-23 16:32 | W.PN.NEPH.PH ---
Today's Communication / Plan
-
see plan
Assessment/Plan
-
Assessment:
Right radial nerve palsy unclear etiology
chronic limited range of motion bilateral shoulders to shoulder level only
LENI on CKD 3 A baseline cr 1.2-1.3
Chronic stage I right heel ulcer
Chronic right lower extremity lymphedema
Hx CVA per CT head
Hx subdural hematoma after mechanical fall
Hx orthostatic hypotension/HTN
Anemia of chronic disease
Acute on chronic thrombocytopenia
DM2 with hyperglycemia
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
phantom leg pain
Paroxysmal A-fib
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
CAD/GA/CABG 2009
Chronic LBBB
HLD
Chronic pain syndrome secondary to spinal stenosis on chronic opiate patch
GERD/Hx GI bleed
Hx ulcerative colitis- azathioprine
Anxiety
Chronic ambulatory dysfunction with chronic foot and ankle deformities
Plan:
A/w right wrist drop and found to have LENI
LENI likely post obstructive, cr better at 1.5 today
Zaragoza placed for bilateral hydronephrosis noted on CT scan, non oliguric f/u with
since he had brisk response with bumex dose lowered at d/c
BPs seem relatively stable
pancytopenia-heme follows, multifactorial, s/p PRBC
d/w pt and at bedside
ok for d/c
bmp 1 week
nephro f/u if needed
-
-
Date of Service: September 23, 2023
CC / HPI / ROS
-
Chief Complaint:
LENI
History of Present Illness:
cr better at 1.5 better with low dose umex
BP stable, plt stable at 61k, hbbetter at 8.1 post PRBC
Review of Systems:
no cp or sob
Grossly nonoliguric with zaragoza
no other complaints
no n/v
Labs
-
Labs:
WBC 3.4 10^3/uL (4.8-10.8) L 09/23/23 06:29
RBC 2.96 10^6/uL (4.70-6.10) L 09/23/23 06:29
Hgb 8.1 g/dL (13.0-18.0) L 09/23/23 06:29
Hct 25.0 % (39.0-52.0) L 09/23/23 06:29
Plt Count 62 10^3/uL (130-400) L 09/23/23 06:29
Sodium 136 mmol/L (135-145) 09/23/23 06:29
Potassium 4.5 mmol/L (3.5-5.1) 09/23/23 06:29
Chloride 103 mmol/L (98-107) 09/23/23 06:29
Carbon Dioxide 29 mmol/L (22-30) 09/23/23 06:29
BUN 46 mg/dl (9-20) H 09/23/23 06:29
Creatinine 1.5 mg/dL (0.7-1.3) H 09/23/23 06:29
eGFR 45.91 09/23/23 06:29
Glucose 100 mg/dl (70-99) H 09/23/23 06:29
Calcium 9.2 mg/dl (8.4-10.2) 09/23/23 06:29
Albumin 3.6 g/dl (3.5-5.0) 09/14/23 13:34
Physical Exam
-
Vital Signs:
Vital Signs
Temp Pulse Resp BP Pulse Ox
98.9 F 61 18 104/53 99
09/23/23 16:00 09/23/23 16:00 09/23/23 16:00 09/23/23 16:09/23/23 16:00
Cardiovascular:: Irregular rate and rhythm
Respiratory:: Bilateral: CTA
Lung Excursion:: Normal
Abdomen:: Nontender and Soft
Extremity Edema:: +1: Bilateral:
Zaragoza Catheter: Yes
== END 2023-09-23 16:50 | DRG 683 ==
LOC: 4 EAST ACU 19:15
PROVIDERS: Clinical Nurse Specialist Family Health; Emergency Medicine; ADMITTING PHYSICIAN Internal Medicine; ATTENDING PHYSICIAN Hospitalist; CONSULT PHYSICIAN Internal Medicine; CONSULT PHYSICIAN Internal Medicine Hematology & Oncology; CONSULT PHYSICIAN Specialist; EMERGENCY PHYSICIAN Emergency Medicine; FAMILY PHYSICIAN Family Medicine
PROC: 30233N1 Transfusion of Nonautologous Red Blood Cells into Peripheral Vein, Percutaneous Approach (ICD-10-PCS; 2023-09-17)
DX: N17.9 Acute kidney failure, unspecified (principal); D61.818 Other pancytopenia; I13.0 Hypertensive heart and chronic kidney disease with heart failure and stage 1 through stage 4 chronic kidney disease, or unspecified chronic kidney disease; I50.32 Chronic diastolic (congestive) heart failure; L97.419 Non-pressure chronic ulcer of right heel and midfoot with unspecified severity; D62 Acute posthemorrhagic anemia; I48.0 Paroxysmal atrial fibrillation; N18.31 Chronic kidney disease, stage 3a; E11.22 Type 2 diabetes mellitus with diabetic chronic kidney disease; D63.8 Anemia in other chronic diseases classified elsewhere; I25.10 Atherosclerotic heart disease of native coronary artery without angina pectoris; E11.621 Type 2 diabetes mellitus with foot ulcer; L89.151 Pressure ulcer of sacral region, stage 1; I89.0 Lymphedema, not elsewhere classified; I44.7 Left bundle-branch block, unspecified; N13.30 Unspecified hydronephrosis; G56.31 Lesion of radial nerve, right upper limb; Z79.4 Long term (current) use of insulin; Z79.01 Long term (current) use of anticoagulants; Z86.73 Personal history of transient ischemic attack (TIA), and cerebral infarction without residual deficits; Z89.612 Acquired absence of left leg above knee; Z95.0 Presence of cardiac pacemaker
CPT/HCPCS: 70450; 74176; 76770; 80048; 80053; 81003; 81015; 82550; 82570; 82728; 82962; 83036; 83540; 83550; 84156; 84300; 85025; 85027; 85045; 86850; 86900; 86901; 86920; 87070; 87086; 96360; 97110; 97163; 97167; 97530; 97535; 99285; J2916; J7500; P9016

== ENCOUNTER → 2023-09-30 08:57 | Outpatient (REF) | payer MEDICARE, SELFPAY ==
[2023-09-30 10:29] LABS: Hematocrit 25.9 % (39.0-52.0); Hemoglobin 8.2 g/dL (13.0-18.0); Mean Corp Hgb Conc. 31.7 g/dL (33.0-37.0); Mean Corpuscular Hgb 28.1 pg (27.0-31.0); Mean Corpuscular Volume 88.7 fL (80.0-94.0); Mean Platelet Volume 12.9 fL (7.4-10.4); Platelet Count 88 10^3/uL (130-400); Red Blood Cell Count 2.92 10^6/uL (4.70-6.10); Red Cell Dist. Width 24.5 % (11.5-14.5); White Blood Cell Count 3.4 10^3/uL (4.8-10.8)
[2023-09-30 10:42] LABS: Blood Urea Nitrogen 49 mg/dl (9-20); Calcium 8.9 mg/dl (8.4-10.2); Carbon Dioxide 27 mmol/L (22-30); Chloride 100 mmol/L (98-107); Glucose 125 mg/dl (70-99); Potassium 4.4 mmol/L (3.5-5.1); Sodium 134 mmol/L (135-145); eGFR 49.87
== END ==
LOC: OLABN 08:57
PROVIDERS: ATTENDING PHYSICIAN Student in an Organized Health Care Education/Training Program
DX: N18.32 Chronic kidney disease, stage 3b (principal)
CPT/HCPCS: 36415; 80048; 85027

== ENCOUNTER → 2023-10-22 10:40 | Outpatient (REF) | payer MEDICARE, SELFPAY ==
[2023-10-22 12:19] LABS: Hematocrit 28.3 % (39.0-52.0); Hemoglobin 9.2 g/dL (13.0-18.0); Mean Corp Hgb Conc. 32.5 g/dL (33.0-37.0); Mean Corpuscular Hgb 28.7 pg (27.0-31.0); Mean Corpuscular Volume 88.2 fL (80.0-94.0); Red Blood Cell Count 3.21 10^6/uL (4.70-6.10); Red Cell Dist. Width 24.3 % (11.5-14.5)
[2023-10-22 12:20] LABS: Platelet Count 77 10^3/uL (130-400)
[2023-10-22 12:26] LABS: Blood Urea Nitrogen 36 mg/dl (9-20); Calcium 9.2 mg/dl (8.4-10.2); Carbon Dioxide 29 mmol/L (22-30); Chloride 105 mmol/L (98-107); Glucose 89 mg/dl (70-99); Potassium 4.3 mmol/L (3.5-5.1); Sodium 135 mmol/L (135-145); eGFR > 60.00
== END ==
LOC: OLABN 10:40
PROVIDERS: ATTENDING PHYSICIAN Student in an Organized Health Care Education/Training Program
DX: N18.32 Chronic kidney disease, stage 3b (principal)
CPT/HCPCS: 36415; 80048; 85027

== ENCOUNTER 2023-11-14 06:28 | Inpatient (IN) | payer MEDICARE, OTHER, SELFPAY ==
[2023-11-14] VITALS (96 sets, daily range): BP systolic 81–147; BP diastolic 41–101; PULSE 60; O2SAT 98; BMI 25.7
[2023-11-14 02:31] LABS: % Basophils 0.2 % (0-2); % Immature Granulocytes 0.3 % (0-0.5); % Monocytes 6.4 % (1.7-9.3); % Neutrophils 90.1 % (42.2-75.2); Absolute Eosinophils 0.1 10^3/uL (0-0.7); Absolute Lymphocytes 0.1 10^3/uL (1.2-3.4); Absolute Monocytes 0.4 10^3/uL (0.1-0.6); Absolute Neutrophils 5.4 10^3/uL (1.4-6.5); Hematocrit 28.7 % (39.0-52.0); Hemoglobin 9.9 g/dL (13.0-18.0); Mean Corp Hgb Conc. 34.5 g/dL (33.0-37.0); Mean Corpuscular Hgb 30.2 pg (27.0-31.0); Mean Corpuscular Volume 87.5 fL (80.0-94.0); Nucleated Red Blood Cells % 0 % (-); Platelet Count 84 10^3/uL (130-400); Red Blood Cell Count 3.28 10^6/uL (4.70-6.10); Red Cell Dist. Width 23.8 % (11.5-14.5)
[2023-11-14 02:33] LABS: Urine Albumin 2+ (Neg - Trace); Urine Bilirubin Negative (Negative); Urine Character Very Cloudy (Clear); Urine Color Yellow; Urine Glucose Negative (Negative); Urine Ketone Negative (Negative); Urine Leukocyte 2+ (Negative); Urine Nitrite Positive (Negative); Urine Occult Blood 3+ (Negative); Urine Specific Gravity 1.015 (<1.030); Urine Urobilinogen Negative (Neg - 1+)
--- NOTE | 2023-11-14 02:42 | ED.GENMED ---
History of Present Illness
<Marissa Cespedes MD - Last Filed: 11/14/23 03:39>
General
Chief Complaint: Breathing Problem
Time Seen by Provider: 11/14/23 02:19
<CHARISSE Ramirez - Last Filed: 11/14/23 05:15>
General
Source: patient and records
Travel History
Have you had any contact with someone who has COVID-19?: No
Do you have any symptoms of coronavirus? Fever > 100 degrees, chills, cough, shortness of breath, sore throat, loss of taste or smell, muscle aches, or headache?: Yes
Symptoms:: fever, cough
History of Present Illness
History of Present Illness:
83 year old male with hx of afib, CHF, CAD, HTN, HLD, TN, pacemaker in place, s/p L AKA 06/2023 BIBA from [facility] for low pulse ox of 88% RA and fever 101.1 that began prior to arrival. Pt was given Tylenol 45 minutes prior to arrival. Per
EMS, pt is at baseline mental status. Pt reports cough and sore throat that began 2 days ago. States prior to today he has not had a fever. Denies runny nose, chest pain, SOB, abdominal pain, n/v/d, dizziness, head ache, back pain. Pt with nik
catheter on arrival. He reports ulcer to R lateral proctor that is bandaged. Reports he has had it for several weeks and has not been healing.
Shruthi (): [phone]
Past History
<CHARISSE Ramirez - Last Filed: 11/14/23 05:15>
Past History
ED Past Medical History: CAD, HTN, Hypercholesterolemia, NIDDM, TN and Other (Arthritis, ulcerative colitis, chronic renal insufficiency, GI bleed)
ED Past Surgical History: Cardiac
Patient has exhibited threatening behavior?: No
Social History
Tobacco: Non-smoker
Alcohol: None
Drug: None
Personal:
Living: with family
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
Review of Systems
<CHARISSE Ramirez - Last Filed: 11/14/23 05:15>
Review of Systems
Allergies reviewed?: Yes
All Other Systems: ROS reviewed and negative except as documented in HPI and ROS
Constitutional: Reports fever
EENT: Reports sore throat
Respiratory: Reports cough
Cardiac: Reports no symptoms
: Reports no symptoms
Musculoskeletal: Reports no symptoms
Skin: Reports other (lesion to RLE)
Neurological: Reports no symptoms
Phy Exam
<CHARISSE Ramirez - Last Filed: 11/14/23 05:15>
General Physical Exam
General Presentation: well appearing and no apparent distress
General age: appears stated age
General Habitus: normal and elderly
General Mental: alert
Eye Exam
Eye Exam: PERRL and EOMI
Cardiovascular Exam
Cardiovascular Exam: regular rate/rhythm, no edema, no gallop, no murmur and normal peripheral pulses
Pulmonary Exam
Pulmonary Exam: no respiratory distress
Cough: productive cough
Breath Sounds: Crackles: generalized, Wheeze: generalized and Rhonchi: generalized
Gastrointestinal Exam
Gastrointestinal Exam: non tender, soft, no pulsatile mass and non distended
Neurological Exam
Neurological Exam: alert and oriented x3
Musculoskeletal Exam
Musculoskeletal Exam: AKA (left)
Skin Exam
Skin Exam: other (lesion to R lateral rpoctor that is wrapped)
Psychiatric Exam
Psychiatric Exam: normal mood/affect
Scores
<CHARISSE Ramirez - Last Filed: 11/14/23 05:15>
Heart Failure Risk
Heart Failure Risk Score: Not Applicable
Course
<Marissa Cespedes MD - Last Filed: 11/14/23 03:39>
Orders/Labs/Results
Orders:
Orders
11/14/23 02:06
Electrocardiogram (*1) Urgent
Reason for Study: Other
Other Reason for Exam: Possible Sepsis
Cardiac Monitoring- Treatment ONCE
EKG- Treatment ONCE
IV Insert/Care/Rem.- Treatment PRN
CR Chest - 2 Views Urgent
Comment:
Reason For Exam: suspected infection
O2 Therapy [RESP] Urgent
Titrate/Wean O2 to maintain O2 sat greater than (%): 93
Special Instructions: TO MAINTAIN CONTINUOUS O2 SATS > OR = 93%
Pulse Ox/cont/shift [RESP] Urgent
Quantity: 1
Special Instructions: CONTINUOUS
11/14/23 02:21
Complete Blood Count/With Diff Urgent
Comprehensive Metabolic Panel Urgent
Lactic Acid Q4H
Comment: ON ICE, CANCEL 2ND ORDER IF FIRST LACTIC ACID LEVEL <2
Urinalysis Reflex To Culture Urgent
Date Specimen was Collected: 11/14/23
Time Specimen was Collected: 02:06
Urine Microscopic Reflex Cult Urgent
Blood Culture Q30M
RAKESH Source: Blood/Venous
Specimen Description:
Comment: FROM 2 SEPARATE SITES
Urine Culture Urgent
RAKESH Source: U
Specimen Description:
Date Specimen was Collected: 11/14/23
Time Specimen was Collected: 02:06
11/14/23 02:27
COVID-19 Antigen Urgent
Source: Nasal Swab
11/14/23 02:40
0.9% Sodium Chloride 1000 ml [Nss] 2,200 ml IV NOW STA
11/14/23 03:11
Blood Culture Q30M
RAKESH Source: Blood/Venous
Specimen Description:
Comment: FROM 2 SEPARATE SITES
11/14/23 03:33
Piperacillin/Tazo 4.5 Gram [Zosyn] 4.5 gram in 100 ml IV NOW
11/14/23 04:07
NORepinephrine 4 MG/250 ML [Levophed] 4 mg in 250 ml .ROUTE .STK-MED
NORepinephrine 4 MG/250 ML [Levophed] 4 mg in 250 ml .ROUTE .STK-MED
11/14/23 04:11
NORepinephrine 4 MG/250 ML [Levophed] 4 mg in 250 ml IV NOW
Initial dose in mcg/min, then titrate:: 2
Titrate to keep:: MAP > 65 mmHg
Titrate by mcg/min:: 1-2 mcg/min
Frequency of titrations (minutes):: 5
Maximum dose in ICU in mcg/min:: 30
Maximum dose in IMU in mcg/min:: 8
Maximum dose in IVU in mcg/min:: 4
Begin to taper infusion when:: Remained at goal for 4hrs
Taper by mcg/min:: 1-2 mcg/min
Frequency of taper (minutes) if patient maintains goal:: 30
Taper to off?: Yes
If infusion off & no longer maintaining goal:: Contact Provider
Abnormal Lab Results
11/14/23
02:21
RBC 3.28 L 10^6/uL
(4.70-6.10)
Hgb 9.9 L g/dL
(13.0-18.0)
Hct 28.7 L %
(39.0-52.0)
RDW 23.8 H %
(11.5-14.5)
Plt Count 84 L 10^3/uL
(130-400)
Absolute Lymphs (auto) 0.1 L 10^3/uL
(1.2-3.4)
Neutrophils % 90.1 H %
(42.2-75.2)
Lymphocytes % 2.0 L %
(20.5-51.1)
BUN 47 H mg/dl
(9-20)
Glucose 135 H mg/dl
(70-99)
Albumin 3.2 L g/dl
(3.5-5.0)
Ur Occult Blood Reflex 3+ A
(Negative)
Urine Nitrite (Reflex) Positive A
(Negative)
Leukocyte Esterase Rfl 2+ A
(Negative)
Urine RBC 26-30 A /HPF
(0-2)
Urine Bacteria (Reflex) Many A
(Negative)
Urine Albumin (Reflex) 2+ A
(Neg - Trace)
11/14/23 02:21
11/14/23 02:21
Vital Signs
Initial and Last Documented VS:
Initial Vital Signs
Temp Pulse Resp BP Pulse Ox
102.1 F H 66 22 107/58 86
11/14/23 01:52 11/14/23 01:52 11/14/23 01:52 11/14/23 01:52 11/14/23 01:52
Last Documented Vital Signs
Temp Pulse Resp BP Pulse Ox
102.1 F H 60 12 98/55 97
11/14/23 01:52 11/14/23 05:00 11/14/23 05:00 11/14/23 05:00 11/14/23 05:00
<CHARISSE Ramirez - Last Filed: 11/14/23 05:15>
Orders/Labs/Results
Orders:
Orders
11/14/23 02:06
Electrocardiogram (*1) Urgent
Reason for Study: Other
Other Reason for Exam: Possible Sepsis
Cardiac Monitoring- Treatment ONCE
EKG- Treatment ONCE
IV Insert/Care/Rem.- Treatment PRN
CR Chest - 2 Views Urgent
Comment:
Reason For Exam: suspected infection
O2 Therapy [RESP] Urgent
Titrate/Wean O2 to maintain O2 sat greater than (%): 93
Special Instructions: TO MAINTAIN CONTINUOUS O2 SATS > OR = 93%
Pulse Ox/cont/shift [RESP] Urgent
Quantity: 1
Special Instructions: CONTINUOUS
11/14/23 02:21
Complete Blood Count/With Diff Urgent
Comprehensive Metabolic Panel Urgent
Lactic Acid Q4H
Comment: ON ICE, CANCEL 2ND ORDER IF FIRST LACTIC ACID LEVEL <2
Urinalysis Reflex To Culture Urgent
Date Specimen was Collected: 11/14/23
Time Specimen was Collected: 02:06
Urine Microscopic Reflex Cult Urgent
Blood Culture Q30M
RAKESH Source: Blood/Venous
Specimen Description:
Comment: FROM 2 SEPARATE SITES
Urine Culture Urgent
RAKESH Source: U
Specimen Description:
Date Specimen was Collected: 11/14/23
Time Specimen was Collected: 02:06
11/14/23 02:27
COVID-19 Antigen Urgent
Source: Nasal Swab
11/14/23 02:40
0.9% Sodium Chloride 1000 ml [Nss] 2,200 ml IV NOW STA
11/14/23 03:11
Blood Culture Q30M
RAKESH Source: Blood/Venous
Specimen Description:
Comment: FROM 2 SEPARATE SITES
11/14/23 03:33
Piperacillin/Tazo 4.5 Gram [Zosyn] 4.5 gram in 100 ml IV NOW
11/14/23 04:07
NORepinephrine 4 MG/250 ML [Levophed] 4 mg in 250 ml .ROUTE .STK-MED
NORepinephrine 4 MG/250 ML [Levophed] 4 mg in 250 ml .ROUTE .STK-MED
11/14/23 04:11
NORepinephrine 4 MG/250 ML [Levophed] 4 mg in 250 ml IV NOW
Initial dose in mcg/min, then titrate:: 2
Titrate to keep:: MAP > 65 mmHg
Titrate by mcg/min:: 1-2 mcg/min
Frequency of titrations (minutes):: 5
Maximum dose in ICU in mcg/min:: 30
Maximum dose in IMU in mcg/min:: 8
Maximum dose in IVU in mcg/min:: 4
Begin to taper infusion when:: Remained at goal for 4hrs
Taper by mcg/min:: 1-2 mcg/min
Frequency of taper (minutes) if patient maintains goal:: 30
Taper to off?: Yes
If infusion off & no longer maintaining goal:: Contact Provider
Abnormal Lab Results
11/14/23
02:21
RBC 3.28 L 10^6/uL
(4.70-6.10)
Hgb 9.9 L g/dL
(13.0-18.0)
Hct 28.7 L %
(39.0-52.0)
RDW 23.8 H %
(11.5-14.5)
Plt Count 84 L 10^3/uL
(130-400)
Absolute Lymphs (auto) 0.1 L 10^3/uL
(1.2-3.4)
Neutrophils % 90.1 H %
(42.2-75.2)
Lymphocytes % 2.0 L %
(20.5-51.1)
BUN 47 H mg/dl
(9-20)
Glucose 135 H mg/dl
(70-99)
Albumin 3.2 L g/dl
(3.5-5.0)
Ur Occult Blood Reflex 3+ A
(Negative)
Urine Nitrite (Reflex) Positive A
(Negative)
Leukocyte Esterase Rfl 2+ A
(Negative)
Urine RBC 26-30 A /HPF
(0-2)
Urine Bacteria (Reflex) Many A
(Negative)
Urine Albumin (Reflex) 2+ A
(Neg - Trace)
11/14/23 02:21
11/14/23 02:21
Vital Signs
Initial and Last Documented VS:
Initial Vital Signs
Temp Pulse Resp BP Pulse Ox
102.1 F H 66 22 107/58 86
11/14/23 01:52 11/14/23 01:52 11/14/23 01:52 11/14/23 01:52 11/14/23 01:52
Last Documented Vital Signs
Temp Pulse Resp BP Pulse Ox
102.1 F H 60 12 98/55 97
11/14/23 01:52 11/14/23 05:00 11/14/23 05:00 11/14/23 05:00 11/14/23 05:00
<CHARISSE Ramirez - Last Filed: 11/14/23 05:15>
MDM/Problems Addressed
Differential Diagnosis Includes:
PNA, sepsis, wound infection
MDM/Problems Addressed:
83 year old male who presents with cough, fever, reported low O2 sat.
Chronic conditions affecting care: HTN, CAD and Arrhythmia (afib)
<CHARISSE Ramirez - Last Filed: 11/14/23 05:15>
*Critical Care Note
Total Time (30-74mins, 75-104mins- exclusive of procedures): Not Applicable
<CHARISSE Ramirez - Last Filed: 11/14/23 05:15>
Update Note
Update Note:
11/15/23 0338: Pt reevaluated. BP decreased to 88/45. Will administer another liter of IV fluids. If BP does not improve, will administer vasopressor.
ED Attending Note
<Marissa Cespedes MD - Last Filed: 11/14/23 03:39>
ED Attending Note
Patient seen and examined by attending physician: Yes
I performed the substantive portion of visit, reviewed & personally made and approve the management plan that is documented in note by myself or CLAU.: Yes
ED Attending Note:
83-year-old male presents emergency department with complaints of fever associated with cough and reported labored breathing. He was noted to be hypoxic, oxygen was applied, patient states that he feels better and denies any specific complaints
otherwise. He denies chest pain, back pain, headache, dizziness, abdominal pain, nausea, vomiting. On exam, patient is pleasant. Pupils equal round reactive to light, no photophobia, mucous membranes slightly dry, oropharynx clear. Heart regular
rate and rhythm. Lungs with diffuse rhonchi, rales, and slight wheezing noted, no retractions, speaks in full sentences easily, obvious cough noted. Has been soft and nontender. Patient has a left AKA, right lower extremity with chronic wound
noted/wrapped.
Patient presents to the Emergency Department with cough
Number and Complexity of Problems Addressed at the Encounter
� Chronic conditions affecting care:
� Acute Exacerbation and/or Progression of Chronic Illness:
� Differential Diagnosis includes: But not limited to sepsis, pneumonia, bronchitis, COVID, etc.
Amount and/or Complexity of Data to be Reviewed and Analyzed
� I performed an independent evaluation of and my interpretation is:
EKG:read by me, nsr, lbbb, no acuteischemia
CT:
Xrays:read by me,s uspect lll pna
Laboratory Studies:baseline anemia and thrombocytopenia, prerenal azotemia, equivocal u/a
Other:
� Review of other/old records reveals: pt admitted 10/06 with tamanna, radial n palsy
� Clinical information was obtained by an independent historian:
� Prescriptions/Medications Considered but not given:
� Further testing considered but not performed:
Risk of Complications and/or Morbidity or Mortality of Patient Management
� Social determinants of health affecting care:
� Discussion with other providers (PCP, Hospitalists, Consultants, etc):
� Escalation of care including admission/observation vs risk of discharge considered: bp noted, ivf ordered, will continue to assess closely as pt may need pressors for presumed sirs/sepsis related to pna. abx ordered. stable
on NC.
<CHARISSE Ramirez - Last Filed: 11/14/23 05:15>
-
Portions of this chart may have been created with voice recognition software.� Occasional wrong word or��sound alike� substitutions may have occurred due to the inherent limitations of voice recognition software.
Discharge Plan
Departure
Patient Disposition: Admit
Date of Disposition: 11/14/23
Time of Disposition: 03:37
Admit to: ICU
Admit to doctor: gemma
Presentation/result/management discussed w/ accepting MD/DO: Hospitalist
Discharge Problem:
Pneumonia
Prescriptions:
No Action
pantoprazole 40 mg Tablet,Delayed Release (Dr/Ec)
40 mg PO DAILY
atorvastatin 80 MG tablet
80 mg PO QPM
Folbic 2.5-25-2 mg Tablet
1 tab PO DAILY
carvedilol 3.125 mg Tablet
3.125 mg PO BID Qty: 60 0RF
amiodarone 200 mg tablet
200 mg PO DAILY
multivitamin Tablet
1 tab PO DAILY
insulin glargine [Lantus U-100 Insulin] 100 unit/mL Solution
15 unit SC DAILY@2029
mirtazapine 30 mg tablet
15 mg PO DAILY@2029
acetaminophen 325 mg Tablet
650 mg PO Q4H PRN (Reason: mild pain/fever)
bisacodyl 10 mg Suppository
10 mg AR DAILY PRN (Reason: no BM or MOM/lactulose ineffective)
fluticasone propionate 50 mcg/actuation Willard,Suspension
1 spray INTRANASAL QPM
insulin lispro [Humalog KwikPen Insulin] 100 unit/mL Insulin Pen
0 - 12 sliding scale dose SC TID@0730,1230,1730
Rx Instructions:
if 71-150= 0 units; 151-200= 2 units; 201-250= 4 units; 251-300= 6 units; 301-350= 8 units; 351-400= 10 units; >400=12 units, call MD
pregabalin [Lyrica] 75 mg Capsule
75 mg PO TID
lactulose 20 gram/30 mL Solution
20 g PO HS PRN (Reason: Constipation)
naloxone [Narcan] 4 mg/actuation Willard,Non-Aerosol
4 mg INTRANASAL Q2M PRN (Reason: constricted pupils,loss of consc,slow breathing)
azathioprine 75 mg Tablet
75 mg PO DAILY
tamsulosin 0.4 mg Capsule
0.4 mg PO DAILY 30 Days Qty: 30 0RF
Eliquis 2.5 mg Tablet
2.5 mg PO BID Qty: 60 0RF
fentanyl 25 mcg/hr patch 72 hour
1 patch transdermal Q72H Qty: 1 0RF
Patient Comments:
qpm
patch on now from 11/10
ipratropium-albuterol 0.5 mg-3 mg(2.5 mg base)/3 mL Solution For Nebulization
3 ml INHALATION Q6H
guaifenesin [Tussin] 100 mg/5 mL Liquid
200 mg PO Q6H
bumetanide 0.5 mg tablet
0.5 mg PO Q OTHER DAY
Referrals:
Marco Antonio Payne DO [Family Provider] -
Interventions
Interventions:
*Risk Screen - Suicide Last Done: 11/14/23 02:39
*General Assessment Last Done: 11/14/23 01:52
*Neglect/Abuse Screening Last Done: 11/14/23 01:52
ED- Fall Risk Assessment Last Done: 11/14/23 02:39
*ED COVID-19 Vaccine History Last Done: 11/14/23 01:52
ED- Cardiac Assessment Last Done: 11/14/23 02:39
ED- Pulmonary Assessment Last Done: 11/14/23 02:39
Discharge Date and Time
Print Language: MALTESE
[2023-11-14 02:54] LABS: ALT (SGPT) 22 U/L (0-50); AST (SGOT) 34 U/L (17-59); Albumin 3.2 g/dl (3.5-5.0); Alkaline Phosphatase 86 U/L (38-126); Blood Urea Nitrogen 47 mg/dl (9-20); Calcium 9.4 mg/dl (8.4-10.2); Carbon Dioxide 25 mmol/L (22-30); Chloride 103 mmol/L (98-107); Estimated Creatinine Clearance 40 ml/min; Glucose 135 mg/dl (70-99); Lactic Acid 1.2 mmol/L (0.7-2.0); Potassium 4.6 mmol/L (3.5-5.1); Sodium 135 mmol/L (135-145); Total Bilirubin 1.3 mg/dl (0.2-1.3); Total Protein 6.6 g/dl (6.3-8.2); eGFR 54.51
[2023-11-14 03:09] LABS: COVID-19 Antigen Negative (Negative)
[2023-11-14] MEDS: NSS 2200 ML IV (03:12)
[2023-11-14 03:13] LABS: Urine Mucus Few; Urine Triple Phosphate Crystal Present
[2023-11-14 03:14] LABS: Urine Bacteria Many (Negative); Urine Red Blood Cell 26-30 /HPF (0-2)
[2023-11-14] MEDS: ZOSYN 100 IV (03:52)
[2023-11-14] MEDS: LEVOPHED 250 IV (04:12)
--- NOTE | 2023-11-14 06:33 | EDRN ---
this RN processed orders for IMU ED HOLD
--- NOTE | 2023-11-14 06:58 | HPS.HSE ---
Family Physician
-
Family Physician: Marco Antonio Payne DO
Chief Complaint
-
Fever, Hypoxemia
History of Present Illness
Patient is an 83y M with PMH significant for ASCVD, A-Fib and DM-II who presents to ED from local [place] for evaluation of hypoxemia and fever noted this evening. [place] record indicates that patient had temp of 101.1 and SpO2 = 88% on room air
prompting presentation to the ED. Patient notes that he has had sore throat and cough for about 2 days. At the time of my examination, patient is sleeping and notes that he is 'tired'. He answers questions briefly, but does not seem inclined
towards detailed history.
Medical History
Past Medical History
Past Medical History: Reports Other
Additional Past Medical History:
ASCVD
Paroxysmal Atrial Fibrillation
Ulcerative Colitis
DM-II
Chronic HFpEF
Chronic LE Lymphedema
CKD III
Hypertension
GERD
Bilateral Ankle Deformity (Acquired)
Past Surgical History: Reports Other
Additional Past Surgical History:
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
CABG x 4
PTCA with Stent x 2
DCCV
T&A
L DEILBERTO
Social History
Tobacco: Non-smoker
Alcohol: Occasional
Drug: None
Personal:
Living: [facility] ([facility])
Employment: Retired
Family History
Family History: Not pertinent
Allergies / Home Medications
Allergies reflects when Allergies were last updated in [employer].
Home Medications with original date entered in [employer]
Allergy/Medication List:
Allergies
Allergy/AdvReac Type Severity Reaction Status Date / Time
Sulfa (Sulfonamide Allergy Hives Verified 09/14/23 13:25
Antibiotics)
sulfasalazine Allergy mother Verified 09/14/23 13:25
states
hives
Home Medications
atorvastatin 80 mg tablet 80 mg PO QPM High Cholesterol 03/30/23
pantoprazole 40 mg tablet,delayed release 40 mg PO DAILY Gastrointestinal Issue 03/30/23
folic acid-vit B6-vit B12 2.5 mg-25 mg-2 mg tablet (Folbic) 1 tab PO DAILY Supplement 04/16/23
carvedilol 3.125 mg tablet 3.125 mg PO BID #60 tabs 04/17/23
amiodarone 200 mg tablet 200 mg PO DAILY Arrhythmia 05/04/23
acetaminophen 325 mg tablet 650 mg PO Q4H PRN mild pain/fever 06/22/23
bisacodyl 10 mg rectal suppository 10 mg NM DAILY PRN no BM or MOM/lactulose ineffective 06/22/23
fluticasone propionate 50 mcg/actuation nasal spray,suspension 1 spray intranasal QPM Allergies 06/22/23
insulin glargine 100 unit/mL subcutaneous solution (Lantus U-100 Insulin) 15 unit SC DAILY@2029 Diabetes 06/22/23
insulin lispro 100 unit/mL subcutaneous pen (Humalog KwikPen (U-100) Insulin) 0 - 12 sliding scale dose SC TID@0730,1230,1730 Diabetes 06/22/23
lactulose 20 gram/30 mL oral solution 20 g PO HS PRN Constipation 06/22/23
mirtazapine 30 mg tablet 15 mg PO DAILY@2030 Mental Health/Anxiety 06/22/23
multivitamin 1 tab PO DAILY Supplement 06/22/23
naloxone 4 mg/actuation nasal spray (Narcan) 4 mg intranasal Q2M PRN constricted pupils,loss of consc,slow breathing 06/22/23
pregabalin 75 mg capsule (Lyrica) 75 mg PO TID Pain 06/22/23
azathioprine 75 mg tablet 75 mg PO DAILY ulcerative colitis 09/14/23
apixaban 2.5 mg tablet (Eliquis) 2.5 mg PO BID #60 tabs 09/23/23
fentanyl 25 mcg/hr transdermal patch 1 patch transdermal Q72H Pain #1 ea 09/23/23
tamsulosin 0.4 mg capsule 0.4 mg PO DAILY 30 days #30 caps 09/23/23
bumetanide 0.5 mg tablet 0.5 mg PO Q OTHER DAY 11/14/23
guaifenesin 100 mg/5 mL oral liquid (Tussin) 200 mg PO Q6H 11/14/23
ipratropium 0.5 mg-albuterol 3 mg (2.5 mg base)/3 mL nebulization soln 3 ml inhalation Q6H 11/14/23
Review of Systems
-
History Source: Patient
A 12 point ROS was completed and negative except as noted: Yes
Constitutional: Reports Fever and Fatigue
EENT: Reports Sore Throat
Respiratory: Reports Cough and Trouble Breathing
Cardiac: Denies Chest Pain
Abdomen/GI: Denies Abdominal Pain, Nausea, Vomiting or Diarrhea
: Reports Cespedes; Denies Dysuria
Neurological: Denies Dizzy or Headache
Physical Exam
Vital Signs
Vital Signs
Temp Pulse Resp BP Pulse Ox
98.8 F 60 12 100/52 95
11/14/23 06:00 11/14/23 06:45 11/14/23 06:45 11/14/23 06:40 11/14/23 06:45
Physical Exam
General: Other (83y M sleeping in no apparent distress. Audible rhonchorous breath sounds.)
HEENT: Other (Dry MM. No JVD.)
Respiratory: Other (Diffuse rhonchi. No wheezes. Patient does not cough when encouraged to do so.)
Cardiac: S1/S2, Irregular Rhythm and Murmur (II/ CARRI)
GI: Soft, Non Tender, Non Distended and Normal Bowel Sounds
Musculoskeletal: No Clubbing, No Cyanosis and No Edema (Pitting edema appreciated at L stump. 1+ edema RLE.)
Neuro: Awake, Oriented and Nonfocal/grossly intact
Laboratory Results
-
11/14/23 02:21
11/14/23 02:21
Laboratory Results
Lactic Acid Cancelled 11/14/23 06:15
Total Bilirubin 1.3 mg/dl (0.2-1.3) 11/14/23 02:21
AST 34 U/L (17-59) 11/14/23 02:21
ALT 22 U/L (0-50) 11/14/23 02:21
Alkaline Phosphatase 86 U/L (38-126) 11/14/23 02:21
Impression/Plan
-
A/P: Patient is a 83y M with PMH significant for ASCVD, PA-Fib and DM-II who presents to ED from local [place] for evaluation of fever and hypoxemia.
Pneumonia
Acute Hypoxemic Respiratory Failure secondary to the above
Sepsis secondary to the above
- Admit for further evaluation and treatment.
- Patient presents with fever and CXR consistent with pneumonia. BP is borderline in the ED and pressors were started.
- Evidence for life-threatening organ dysfunction in the form of hypoxemia and hypotension.
- IV abx pending culture results.
- COVID negative in the ED. Check influenza status.
- Supportive care including IVFs +/- pressors (hopefully can wean off), O2 support, etc.
- Follow for clinical improvement.
ASCVD
- Continue current CV med regimen.
- Monitor for any chest pain or other symptoms.
Paroxysmal Atrial Fibrillation
- Stable. Heart rates controlled on current medications.
- Continue amiodarone, carvedilol with holding parameters for BP.
- Continue Eliquis for stroke risk reduction.
DM-II
- Stable. Continue basal insulin at decreased dose.
- Insulin SS and adjust as needed for adequate control.
- Update A1C.
CKD III
- Stable. Renal function at / near known baseline.
- Follow for any changes.
Chronic HFpEF
Chronic LE Lymphedema
- Stable. No evidence of significant volume overload.
- Hold diuretics acutely given hypotension / sepsis.
- Follow I/Os, daily weights, etc and resume diuretics when appropriate.
- Update 2D Echo
Ulcerative Colitis
- Stable. No recent issues or complaints.
- Continue azathioprine dosing and follow for any changes.
Spinal Stenosis
Chronic Pain Syndrome
- Stable. No new or increased symptoms.
- Continue current pain regimen including Fentanyl patch, Lyrica, etc.
- Hold / reduce sedating medications acutely.
- PT / OT evaluations.
Chronic Indwelling Cespedes
- Cespedes in place on admission.
- This was placed during prior admission here in September of this year.
- Plan was for eventual outpatient cysto and voiding trial - it is not clear whether this happened.
- Maintain Cespedes for now.
- Follow-up with Urology as an outpatient. Could consider TOV here prior to discharge.
DVT Prophylaxis: On Eliquis
Code Status: Full
[2023-11-14] MEDS: NSS 1000 IV ×2 (07:22→16:06)
--- NOTE | 2023-11-14 07:51 | EDRN ---
the pt was received from previous shift superintendent caustic cresylate RN, the pt is resting in stretcher in the lowest position, side rails up x2, call cobos within reach, HOB elevated, the pt is currently in a paced rhythm in the 60's, last BP 100/54 (70), the pt is
currently on 3L NC Sp02 96%, assessment performed in work list, the pt currently has a 20 Anguillan indwelling urinary catheter that was in place when the pt arrived to the ER per the shift superintendent caustic cresylate RN, the pt also has a right wrist brace on, along with
right ankle swelling, it was noted that the pt has a Left AKA as well, this RN reached out to Dr. Jaramillo regarding the pts PO medications because the pt is awakening to voice however the pt is not staying awake long enough to have a conversation or
take oral medications, the pts lung sounds have crackles, and rales present, and this RN is concerned for PO medications or fluids for aspiration risk, this RN notified the provider of this RN's thoughts, the pt currently has Levophed running at
4mcg/min and NSS running at 100cc/hour, PIV's have positive blood return and were both flushed, the pt has a right heel cushion boot in place, the pt is an IMU HOLD, this RN processed orders and confirmed orders, awaiting to hear back from provider
regarding the pts oral medications
--- NOTE | 2023-11-14 08:17 | EDRN ---
Dr. Jaramillo got back to this RN via tiger text and stated to continue to titrate down levophed as long as the pts blood pressure can hand it and the provider also stated to hold all PO medications, will continue to monitor the pt closely
[2023-11-14] MEDS: COREG PO ×2 (08:18→19:35)
[2023-11-14] MEDS: MUCINEX PO (08:18)
[2023-11-14] MEDS: IMURAN PO (08:18)
[2023-11-14] MEDS: LYRICA PO (08:18)
[2023-11-14] MEDS: ELIQUIS PO (08:18)
[2023-11-14] MEDS: FLOMAX PO (08:18)
[2023-11-14] MEDS: PACERONE PO (08:18)
[2023-11-14] MEDS: PROTONIX PO (08:19)
[2023-11-14] MEDS: DUONEB 3 ML INH ×4 (08:22→20:22)
[2023-11-14] MEDS: ZOSYN 50 IV ×3 (10:14→21:23)
--- NOTE | 2023-11-14 11:05 | EDRN ---
this RN titrated the pts Levophed off, blood pressure 109/79 (90), this RN notified the provider, the pt is awake alert and talking now, AAOx4, interacting with his son, and asking for breakfast, this RN will notify the provider
--- NOTE | 2023-11-14 12:30 | EDRN ---
the pt is resting in stretcher in the lowest position, side rails up x2, call cobos within reach, HOB elevated, VS WNL, Paced rhythm in the 60's, last BP 103/52 (69), the Levophed is currently still off, the pt is currently still on 3L NC Sp02 97%,
no c/o chest pain, no c/o SOB, NSS currently still running at 100cc/hour, the pts son is currently still at the pts bedside, will continue to monitor the pt closely
--- NOTE | 2023-11-14 13:00 | EDRN ---
physical therapy currently at the pts bedside
--- NOTE | 2023-11-14 13:17 | EDRN ---
physical therapy came out to this RN at the nurses station and stated that the pt had a bowel movement and needed to be changed, this RN cleaned the pt up and the pt had a large soft bowel movement, this RN changed the pts pad, brief, and gown, and
repositioned the pt in the bed for comfort, the pt was able to perform deep breathing exercises with incentive spirometer, will continue to monitor the pt closely
--- NOTE | 2023-11-14 13:33 | EDRN ---
this RN noticed that the pts blood pressure off of the Levophed was 88/50 (62), this RN restarted Levophed at 2mcg/min, will continue to monitor the pt closely
--- NOTE | 2023-11-14 13:55 | EDRN ---
verbal report was called to the receiving nurse Dinah SOMMERS
--- NOTE | 2023-11-14 14:51 | W.PN.UPDATE ---
Update Note
Progress Note Update
Seen by Dr. Jaramillo this morning.
Admitted for severe sepsis and seems to be septic shock as he is requiring vasopressors again. Suspected source pneumonia.
Patient is alert and oriented. Hard of hearing. No acute respiratory distress. Bilateral rhonchorous breathing with wheezing noted. She is on 2 mcg of Levophed with systolic blood pressure in 100s.
Continue with current antibiotic regimen. Patient being transferred to IMU.
[2023-11-14] MEDS: LYRICA 75 MG PO ×2 (16:06→21:23)
--- NOTE | 2023-11-14 16:39 | PTCARENOTE ---
Received patient on admission from ED via stretcher with levophed infusing at 2mcg/min and NSS at 100ml/hr. Patient transferred from stretcher to bed x 4 assist. Levophed able to be off at 16:10; BP 127/69 with MAP 86. Family at bedside. WOC
consulted d/t leg wound. Received with chronic zaragoza in place; tip of penis lacerated and open. Dr Zacarias contacted via tiger text regarding diet and possible speech consult. Patient able to drink water from cup without difficulty and take pill whole
with water. Family at the bedside. See worklist for full assessment and vital signs; see MAR for med administration.
[2023-11-14 17:07] LABS: Glucose - Point of Care 138 mg/dl (70-99)
[2023-11-14] MEDS: NOVOLOG FLEXPEN-LOW RESISTANCE SC (17:51)
[2023-11-14] MEDS: LIPITOR 80 MG PO (17:54)
[2023-11-14] MEDS: ELIQUIS 2.5 MG PO (20:02)
[2023-11-14] MEDS: MUCINEX 1200 MG PO (20:02)
[2023-11-14] MEDS: LANTUS 0.100000000000000006 UNITS SC (20:06)
[2023-11-14 21:39] LABS: Glucose - Point of Care 276 mg/dl (70-99)
[2023-11-15] VITALS (12 sets, daily range): BP systolic 108–137; BP diastolic 53–77; BMI 26.1
[2023-11-15] MEDS: NSS 1000 IV ×2 (02:16→12:54)
[2023-11-15] MEDS: ZOSYN 50 IV ×4 (03:17→22:21)
[2023-11-15 05:44] LABS: ALT (SGPT) 55 U/L (0-50); AST (SGOT) 94 U/L (17-59); Albumin 2.9 g/dl (3.5-5.0); Alkaline Phosphatase 71 U/L (38-126); Blood Urea Nitrogen 34 mg/dl (9-20); Calcium 8.8 mg/dl (8.4-10.2); Carbon Dioxide 26 mmol/L (22-30); Chloride 108 mmol/L (98-107); Direct Bilirubin 0.4 mg/dl (0.0-0.4); Estimated Creatinine Clearance 48 ml/min; Glucose 126 mg/dl (70-99); Hematocrit 27.7 % (39.0-52.0); Hemoglobin 9.1 g/dL (13.0-18.0); Mean Corp Hgb Conc. 32.9 g/dL (33.0-37.0); Mean Corpuscular Hgb 29.4 pg (27.0-31.0); Mean Corpuscular Volume 89.6 fL (80.0-94.0); Platelet Count 75 10^3/uL (130-400); Red Blood Cell Count 3.09 10^6/uL (4.70-6.10); Red Cell Dist. Width 23.9 % (11.5-14.5); Sodium 138 mmol/L (135-145); Total Bilirubin 1.1 mg/dl (0.2-1.3); Total Protein 6.1 g/dl (6.3-8.2); White Blood Cell Count 3.2 10^3/uL (4.8-10.8); eGFR > 60.00
[2023-11-15 07:50] LABS: Glucose - Point of Care 129 mg/dl (70-99)
[2023-11-15] MEDS: NOVOLOG FLEXPEN-LOW RESISTANCE SC ×3 (07:53→17:44)
[2023-11-15] MEDS: DUONEB 3 ML INH ×4 (07:55→20:17)
[2023-11-15] MEDS: IMURAN 75 MG PO (08:34)
[2023-11-15] MEDS: PACERONE 200 MG PO (08:34)
[2023-11-15] MEDS: PROTONIX 40 MG PO (08:34)
[2023-11-15] MEDS: MUCINEX 1200 MG PO ×2 (08:34→20:17)
[2023-11-15] MEDS: ELIQUIS 2.5 MG PO ×2 (08:34→20:17)
[2023-11-15] MEDS: COREG 3.125 MG PO ×2 (08:34→20:17)
[2023-11-15] MEDS: LYRICA 75 MG PO ×3 (08:35→20:17)
[2023-11-15] MEDS: FLOMAX 0.400000000000000022 MG PO (08:35)
--- NOTE | 2023-11-15 08:54 | W.PN.HOSP.TC ---
Today's Communication/Plan
-
Hold further IV fluids. Check a BNP. Consider diuretics.
Continue the current antibiotics and follow culture data.
Transfer to telemetry.
Assessment / Plan
Assessment / Plan
A/P: Patient is a 83y M with PMH significant for ASCVD, PA-Fib and DM-II who presents to ED from local [place] for evaluation of fever and hypoxemia.
Febrile illness with sepsis and septic shock.
Pneumonic process versus UTI versus others.
Patient is a chronic Cespedes catheter but is no pyuria. He has a chest x-ray evidence of concern of right upper lobe abnormality. No particular GI symptoms currently. With a positive finding of chest x-ray will treat as possible pneumonia and
follow chest x-ray. Cannot rule out the right upper lobe abnormality as edema as he has some vascular congestion in general.
Currently off of vasopressors.
Continue the broad-spectrum antibiotics pending culture data.
COVID and flu status negative
ASCVD
- Continue current CV med regimen.
- Monitor for any chest pain or other symptoms.
Paroxysmal Atrial Fibrillation
- Stable. Heart rates controlled on current medications.
- Continue amiodarone, carvedilol with holding parameters for BP.
- Continue Eliquis for stroke risk reduction.
DM-II
- Stable. Continue basal insulin at decreased dose.
- Insulin SS and adjust as needed for adequate control.
- Update A1C.
CKD III
- Stable. Renal function at / near known baseline.
- Follow for any changes.
Chronic HFpEF
- Rule out fluid overload
- See above
- Follow I/Os, daily weights, etc and resume diuretics when appropriate.
Ulcerative Colitis
- Stable. No recent issues or complaints.
- Continue azathioprine dosing and follow for any changes.
Spinal Stenosis
Chronic Pain Syndrome
- Stable. No new or increased symptoms.
- Continue current pain regimen including Fentanyl patch, Lyrica, etc.
- Hold / reduce sedating medications acutely.
- PT / OT evaluations.
Chronic Indwelling Cespedes
- Cespedes in place on admission.
- This was placed during prior admission here in September of this year.
- Plan was for eventual outpatient cysto and voiding trial - it is not clear whether this happened.
- Maintain Cespedes for now.
- Follow-up with Urology as an outpatient. Could consider TOV here prior to discharge.
DVT Prophylaxis: On Eliquis
Code Status: Full
DW RN
Total time spent on today's encounter was 52 minutes which included time spent in counseling the patient/family regarding diagnosis and treatment plan as listed above, goals of care, and symptom management. Case was discussed with nursing staff .
All labs and imaging personally reviewed by me. Remainder the time spent in detailed review of previous records, lab data, imaging, and other medical provider documentation.
Anticipated Discharge: > 48 hours
Subjective/Interval History
-
Date of Service: November 15, 2023
Patient feeling better today. Off of oxygen. Denies of shortness of breath but hears a wheeze.
No chest pain or palpitations.
Chronic Cespedes catheter in situ; he states that he would require a surgery to get rid of that.
Objective Data
-
Labs:
Laboratory Results
11/15/23
05:24
WBC 3.2 L
Hgb 9.1 L
Hct 27.7 L
Plt Count 75 L
Sodium 138
Potassium 4.0
Chloride 108 H
Carbon Dioxide 26
BUN 34 H
Creatinine 1.1
Glucose 126 H
Calcium 8.8
Total Bilirubin 1.1
AST 94 H
ALT 55 H
Alkaline Phosphatase 71
Vital Signs:
Vital Signs
Temp Pulse Resp BP Pulse Ox
99.3 F 60 16 113/55 95
11/15/23 03:16 11/15/23 06:00 11/15/23 06:00 11/15/23 06:00 11/15/23 06:00
I&O
11/14/23 11/15/23 11/16/23
06:59 06:59 06:59
Intake Total 2540 / 2540
Output Total 1000 / 1000
Balance 1540 / 1540
Review of Systems
-
Constitutional: Denies Fever or Chills
Respiratory: Reports Cough
Abdomen/GI: Denies Abdominal Pain, Nausea or Vomiting
Neuro: Denies Dizzy
Physical Exam
-
General: No Apparent Distress
HEENT: Moist Mucous Membranes
Respiratory: Crackles (Bilateral lower zones) and Non Labored Respirations
Cardiac: Regular Rhythm and S1/S2
GI: Soft and Nontender
Neuro: AO x 3
[2023-11-15 09:52] LABS: NT-proBNP 6480 pg/ml
--- NOTE | 2023-11-15 10:15 | PTCARENOTE ---
Assumed care of patient at beginning of this shift. Lungs with exp wheeze and rhonchi t/o; +HOLLOWAY but denies SOB. POx 97% on 2l n/c; RA 93-94%. POx then decreased to 91%; placed back on 2l n/c after chest PT by resp therapist. Remains a-paced on
monitor. See worklist for full assessment and vital signs; see MAR for med administration.
[2023-11-15 12:18] LABS: Glucose - Point of Care 318 mg/dl (70-99)
--- NOTE | 2023-11-15 12:32 | PTOTSP ---
ST Acute Care Evaluation
Pt currently presents with moderate oropharyngeal dysphagia mostly 2/2 acute metabolic encephalopathy, reduced dentition, and reduced breathing/swallowing coordination. Cannot rule out organic presbyphagia as an underlying/originating condition that
contributed to his acute decline in respiratory status.
Recommendations:
- NPO x meds whole or crushed in puree.
- ARHP - ice chips, seldom with supervision after oral care.
- Aspiration precautions: HOB upright as often as possible, oral care QID, encourage pt to expectorate secretions.
- PLANT ATTENDANT will continue to follow and re-assess pt's candidacy/appropriateness for PO diet reinitiation as well as determine necessity for an instrumental swallow study.
[2023-11-15] MEDS: NOVOLOG FLEXPEN-LOW RESISTANCE 4 UNITS SC (12:53)
--- NOTE | 2023-11-15 14:33 | CM ---
Patient from [facility] with Hx left AKA with Dx Febrile illness with sepsis and septic shock, suspect pneumonia. O2 2L. Receiving IV Zosyn., IVF. PT & OT recommend skilled rehab.
Spoke with patient's son Nirmal;
the patient resides at [facility] in LTC and is on an MA bed hold.
He is A/O at baseline, assisted with ADLs.
Since his left AKA he was not fitted for a prosthesis and is non-ambulatory.
A mechanical lift is used to transfer patient OOB to chair or w/c.
The patient was receiving PT/OT at [facility].
Son states that the family wishes for patient to return to [facility] at d/c.
CM Consult: Advanced Directive
Offered to provide Advanced Directive and son declined, saying that the patient, patient's and son all want full code and feel no need to complete Advanced Directive indicating anything else.
Message sent to Dr Zacarias informing him son declined Advanced Directive and expressed desire to continue Full Code.
Plan contact [facility] to confirm LTC MA bed hold.
Plan return to [facility] when medically ready.
[2023-11-15 17:50] LABS: Glucose - Point of Care 200 mg/dl (70-99)
[2023-11-15] MEDS: NOVOLOG FLEXPEN-LOW RESISTANCE 2 UNITS SC (17:57)
[2023-11-15] MEDS: LIPITOR 80 MG PO (17:57)
[2023-11-15] MEDS: LANTUS 0.100000000000000006 UNITS SC (20:30)
[2023-11-15 21:42] LABS: Glucose - Point of Care 162 mg/dl (70-99)
[2023-11-15] MEDS: NOVOLOG FLEXPEN-LOW RESISTANCE 1 UNITS SC (23:21)
[2023-11-16] VITALS (16 sets, daily range): BP systolic 109–147; BP diastolic 54–106; PULSE 61–65; BMI 26.3
[2023-11-16] MEDS: ZOSYN 50 IV ×2 (04:01→09:25)
[2023-11-16 05:04] LABS: Mean Corp Hgb Conc. 33.3 g/dL (33.0-37.0); Mean Corpuscular Hgb 29.7 pg (27.0-31.0); Mean Corpuscular Volume 89.1 fL (80.0-94.0); Platelet Count 78 10^3/uL (130-400); Red Blood Cell Count 3.03 10^6/uL (4.70-6.10); Red Cell Dist. Width 23.8 % (11.5-14.5); White Blood Cell Count 2.9 10^3/uL (4.8-10.8)
[2023-11-16 05:24] LABS: Blood Urea Nitrogen 27 mg/dl (9-20); Carbon Dioxide 21 mmol/L (22-30); Chloride 111 mmol/L (98-107); Estimated Creatinine Clearance 52 ml/min; Glucose 119 mg/dl (70-99); Potassium 3.8 mmol/L (3.5-5.1); Sodium 138 mmol/L (135-145); eGFR > 60.00
[2023-11-16 05:25] LABS: Glucose - Point of Care 120 mg/dl (70-99)
[2023-11-16] MEDS: NOVOLOG FLEXPEN-LOW RESISTANCE SC (05:25)
[2023-11-16 08:03] LABS: Glucose - Point of Care 133 mg/dl (70-99)
[2023-11-16] MEDS: DUONEB 3 ML INH ×4 (08:21→20:29)
[2023-11-16] MEDS: PROTONIX PO (09:16)
[2023-11-16] MEDS: MUCINEX PO (09:16)
[2023-11-16] MEDS: IMURAN 75 MG PO (09:24)
[2023-11-16] MEDS: FLOMAX 0.400000000000000022 MG PO (09:24)
[2023-11-16] MEDS: LYRICA 75 MG PO ×3 (09:24→20:12)
[2023-11-16] MEDS: COREG 3.125 MG PO ×2 (09:25→20:13)
[2023-11-16] MEDS: PACERONE 200 MG PO (09:25)
[2023-11-16] MEDS: ELIQUIS 2.5 MG PO ×2 (09:25→20:12)
--- NOTE | 2023-11-16 10:42 | WOUNDNOTE ---
SACRUM/GLUTEAL CLEFT DISTAL
--- NOTE | 2023-11-16 10:44 | WOUNDNOTE ---
R MEDIAL LOWER LEG
--- NOTE | 2023-11-16 10:46 | WOUNDNOTE ---
R LATERAL LOWER LEG
--- NOTE | 2023-11-16 10:47 | WOUNDNOTE ---
WON RN note: Patient admitted with pneumonia.
See H&P for complete history. Lives at [facility].
PMH:NIDDM, L AKA, PM, CAD, HTN,RI,CHF, A fib, GI bleed, R heel stage 1 PI.
Wound Location and type/assessment: Patient known to service, last seen September 2023, at that time R heel stage 1 PI, had documented on wrong leg, L AKA. Now admitted with: R lateral lower leg necrotic full thickness ulcer. Suspect venous mixed with
arterial ulcer, + pedal pulse audible with Doppler. +2 edema in foot, skin warm and dry. R heel blanchable red, R medial ankle with blanchable redness. Pillows under R upper leg/knee and own blue Prevalon boot to offload heel. Patient turned with
assist of nurse Carito, patient had large liquid BM, skin care given. Anterior scrotum with old ulcer, suspect MASD from incontinence of stool vs skin tear. Cespedes in use, chronic fillet of meatal tip. Sacrum is intact, distal gluteal cleft with
small ulcer suspect also from incontinent associated skin damage. L Stump is intact. Gets out of bed to wheelchair for approximately 6 hrs a day patient states. Has a cushion for wheelchair.
Appetite: Excellent.
Pressure redistribution devices in place: On [facility] air bed with turning schedule. Prevalon heel boot.
Plan: Applied foams to R heel and medial ankle. Will order Santyl for R lateral lower leg to start tomorrow. Today applied adaptic abd pad and talia. Recommend arterial studies if hospitalist deems appropriate. Sacral silicone foam applied for
protection. Calazime to scrotal ulcer.
Will confirm orders with hospitalist and updated nurse. Updated care plan and will follow as needed.
Note to case management of equipment requested for discharge: Air mattress at [facility].
[2023-11-16] MEDS: PROTONIX IV 40 MG IV (10:53)
[2023-11-16] MEDS: NSS (PRESERVATIVE FREE) 10 ML IV (10:53)
[2023-11-16] MEDS: DURAGESIC 25 MCG/HR PATCH 1 PATCH TRANSDERM (10:54)
--- NOTE | 2023-11-16 11:30 | PTOTSP ---
Speech Language Pathology
VIDEOFLUOROSCOPIC SWALLOWING EXAMINATION (VSE) completed. Overall, body habitus limited view during study. Transient supraglottic penetration noted at times, but no aspiration noted. No significant pharyngeal residue noted.
Recommend:
(1) Upgrade to IDDSI Level 6 (Soft/Bite-Sized) and Thin Liquids
(2) Aspiration precautions: sit upright, slow rate
(3) Meds as tolerated
(4) WINDOW INSTALLER to follow, likely briefly
[2023-11-16] MEDS: DUONEB INH (11:32)
[2023-11-16 12:01] LABS: Glucose - Point of Care 156 mg/dl (70-99)
[2023-11-16] MEDS: UNASYN IV ×3 (12:21→23:10)
[2023-11-16] MEDS: NOVOLOG FLEXPEN-LOW RESISTANCE 1 UNITS SC (12:21)
--- NOTE | 2023-11-16 15:55 | W.PN.HOSP.TC ---
Today's Communication/Plan
-
early ambulation
Switch to Unasyn
Stop fluids, consider starting lasix tomorrow if BP ok
Assessment / Plan
Assessment / Plan
A/P: Patient is a 83y M with PMH significant for ASCVD, PA-Fib and DM-II who presents to ED from local [place] for evaluation of fever and hypoxemia.
#Septic Shock
Pneumonic process
Patient is a chronic Cespedes catheter but is no pyuria. He has a chest x-ray evidence of concern of right upper lobe abnormality. No particular GI symptoms currently. With a positive finding of chest x-ray will treat as possible pneumonia and
follow chest x-ray. Cannot rule out the right upper lobe abnormality as edema as he has some vascular congestion in general.
Currently off of vasopressors.
Continue the broad-spectrum antibiotics pending culture data.
COVID and flu status negative
Cultures negative
Passed speech eval - IDDSI 6
Switch to unasyn and monitor
Stop Fluids
ASCVD
- Continue current CV med regimen.
- Monitor for any chest pain or other symptoms.
Paroxysmal Atrial Fibrillation
- Stable. Heart rates controlled on current medications.
- Continue amiodarone, carvedilol with holding parameters for BP.
- Continue Eliquis for stroke risk reduction.
DM-II
- Stable. Continue basal insulin at decreased dose.
- Insulin SS and adjust as needed for adequate control.
- Update A1C - 8.1
CKD III
- Stable. Renal function at / near known baseline.
- Follow for any changes.
Acute on Chronic HFpEF
- may need to restart lasix tomorrow if BPs remain stable
- Follow I/Os, daily weights, etc and resume diuretics when appropriate.
Stop Fluids
Ulcerative Colitis
- Stable. No recent issues or complaints.
- Continue azathioprine dosing and follow for any changes.
Spinal Stenosis
Chronic Pain Syndrome
- Stable. No new or increased symptoms.
- Continue current pain regimen including Fentanyl patch, Lyrica, etc.
- Hold / reduce sedating medications acutely.
- PT / OT evaluations.
Chronic Indwelling Cespedes
- Cespedes in place on admission.
- This was placed during prior admission here in September of this year.
- Plan was for eventual outpatient cysto and voiding trial - it is not clear whether this happened.
- Maintain Cespedes for now.
- Follow-up with Urology as an outpatient. Could consider TOV here prior to discharge.
PVD
-aterial duplex/abis
DVT Prophylaxis: On Eliquis
Code Status: Full
DW RN
Total time spent on today's encounter was 53 minutes which included time spent in counseling the patient/family regarding diagnosis and treatment plan as listed above, goals of care, and symptom management. Case was discussed with nursing staff .
All labs and imaging personally reviewed by me. Remainder the time spent in detailed review of previous records, lab data, imaging, and other medical provider documentation.
Anticipated Discharge: 24 - 48 hours
Subjective/Interval History
-
Date of Service: November 16, 2023
wheezing. otherwise carny cute events
Objective Data
-
Labs:
Laboratory Results
11/16/23
04:31
WBC 2.9 L
Hgb 9.0 L
Hct 27.0 L
Plt Count 78 L
Sodium 138
Potassium 3.8
Chloride 111 H
Carbon Dioxide 21 L
BUN 27 H
Creatinine 1.0
Glucose 119 H
Calcium 9.0
Vital Signs:
Vital Signs
Temp Pulse Resp BP Pulse Ox
98.4 F 66 19 117/54 94
11/16/23 15:28 11/16/23 15:45 11/16/23 15:45 11/16/23 14:00 11/16/23 15:45
I&O
11/15/23 11/16/23 11/17/23
06:59 06:59 06:59
Intake Total 2540 / 2540 590 / 590
Output Total 1000 / 1000 1100 / 1100 400 / 400
Balance 1540 / 1540 -510 / -510 -400 / -400
Review of Systems
-
Constitutional: Denies Fever or Chills
Respiratory: Reports Cough
Abdomen/GI: Denies Abdominal Pain, Nausea or Vomiting
Neuro: Denies Dizzy
Physical Exam
-
General: No Apparent Distress
HEENT: Moist Mucous Membranes
Respiratory: Wheezes (b/l lower lung gonsales) and Non Labored Respirations
Cardiac: Regular Rhythm and S1/S2
GI: Soft and Nontender
Neuro: AO x 3
Data Reviewed
-
Diagnostic Radiology: Image personally visualized and interpreted and Report Reviewed by me
Labs: Labs Reviewed by me
[2023-11-16 17:26] LABS: Glucose - Point of Care 228 mg/dl (70-99)
[2023-11-16] MEDS: LIPITOR 80 MG PO (17:39)
[2023-11-16] MEDS: NOVOLOG FLEXPEN-LOW RESISTANCE 2 UNITS SC (17:40)
--- NOTE | 2023-11-16 20:54 | PTCARENOTE ---
No assessment changed from previous shift. Apaced on monitor, remains on RA. Insp/exp wheezing, denies SOB, neb given. Denies pain. LAKA. RLE wound covered & CDI, elevated on 2 pillows & boot. Replaced foam on sacrum for protection. Took pills
whole. Chronic zaragoza, cleaned & assessed, stat lock applied. Pt transferring to tele floor, pt updated. Report not called yet.
[2023-11-16 21:09] LABS: Glucose - Point of Care 239 mg/dl (70-99)
[2023-11-16] MEDS: LANTUS 0.100000000000000006 UNITS SC (21:14)
--- NOTE | 2023-11-16 21:36 | PTCARENOTE ---
Pt received from IMU to rm [id number]. Pt oriented to room and call cobos.
[2023-11-16 21:46] LABS: Glucose - Point of Care 250 mg/dl (70-99)
[2023-11-17] VITALS (7 sets, daily range): BP systolic 107–144; BP diastolic 59–75; PULSE 61; BMI 24.4
[2023-11-17] MEDS: UNASYN IV ×4 (05:29→23:44)
[2023-11-17 05:59] LABS: Hematocrit 28.5 % (39.0-52.0); Hemoglobin 9.6 g/dL (13.0-18.0); Mean Corp Hgb Conc. 33.7 g/dL (33.0-37.0); Mean Corpuscular Hgb 29.8 pg (27.0-31.0); Mean Corpuscular Volume 88.5 fL (80.0-94.0); Platelet Count 81 10^3/uL (130-400); Red Blood Cell Count 3.22 10^6/uL (4.70-6.10); Red Cell Dist. Width 23.8 % (11.5-14.5); White Blood Cell Count 3.5 10^3/uL (4.8-10.8)
[2023-11-17] MEDS: DUONEB 3 ML INH ×4 (06:22→20:38)
[2023-11-17 06:23] LABS: ALT (SGPT) 97 U/L (0-50); AST (SGOT) 108 U/L (17-59); Albumin 2.5 g/dl (3.5-5.0); Alkaline Phosphatase 66 U/L (38-126); Blood Urea Nitrogen 27 mg/dl (9-20); Calcium 8.8 mg/dl (8.4-10.2); Carbon Dioxide 23 mmol/L (22-30); Chloride 111 mmol/L (98-107); Estimated Creatinine Clearance 52 ml/min; Glucose 161 mg/dl (70-99); Potassium 3.9 mmol/L (3.5-5.1); Sodium 139 mmol/L (135-145); Total Protein 5.6 g/dl (6.3-8.2); eGFR > 60.00
[2023-11-17 08:07] LABS: Glucose - Point of Care 147 mg/dl (70-99)
[2023-11-17] MEDS: NOVOLOG FLEXPEN-LOW RESISTANCE SC (08:43)
[2023-11-17] MEDS: LYRICA 75 MG PO ×3 (08:44→22:06)
[2023-11-17] MEDS: FLOMAX 0.400000000000000022 MG PO (08:44)
[2023-11-17] MEDS: COREG 3.125 MG PO ×2 (08:44→22:06)
[2023-11-17] MEDS: SANTYL OINTMENT 1 APPLIC TOPICAL (08:44)
[2023-11-17] MEDS: ELIQUIS 2.5 MG PO ×2 (08:44→22:03)
[2023-11-17] MEDS: IMURAN 75 MG PO (08:44)
[2023-11-17] MEDS: PROTONIX IV 40 MG IV (08:45)
[2023-11-17] MEDS: PACERONE 200 MG PO (08:45)
[2023-11-17] MEDS: NSS (PRESERVATIVE FREE) 10 ML IV (08:46)
--- NOTE | 2023-11-17 10:51 | PN.CDI ---
CDI
- -
CDI:
Physician Documentation Request
Admit Date: 11/14/23 06:28
Dear Doctor Branden,
Please review the following and provide your response in the progress notes.
Clinical Indicators:
Pt admitted with septic shock 2/2 Pneumonia /Acute on Chronic diastolic CHF
Blood counts are as below
11/15/23 11/16/23 11/17/23
05:24 04:31 05:17
WBC 3.2 L 2.9 L 3.5 L
Hgb 9.1 L 9.0 L 9.6 L
Hct 27.7 L 27.0 L 28.5 L
Plt Count 75 L 78 L 81 L
Based on the above, could you clarify, in your progress note, which of the following is the most likely type of anemia you are evaluating, monitoring and/or treating?
Pancytopenia
Anemia of chronic Disease (CKD)
Other (please specify)
Use of terms such as suspected, likely, concern for, or probable (associated with a specific diagnosis that is being evaluated, monitored, or treated as if it exists) are acceptable and can be coded in the inpatient setting, when documented at the
time of discharge.
Thank you,
Sara Michaels RN
CDI Specialist
[employer]
Please use your independent medical judgment in providing your response.
[2023-11-17 12:01] LABS: Glucose - Point of Care 209 mg/dl (70-99)
[2023-11-17] MEDS: NOVOLOG FLEXPEN-LOW RESISTANCE 2 UNITS SC ×2 (12:19→17:29)
--- NOTE | 2023-11-17 14:08 | W.PN.HOSP.TC ---
Today's Communication/Plan
-
abx
monitor bp, may restart lasix in 24 hours
Assessment / Plan
Assessment / Plan
A/P: Patient is a 83y M with PMH significant for ASCVD, PA-Fib and DM-II who presents to ED from local [place] for evaluation of fever and hypoxemia.
#Septic Shock
Pneumonic process
Patient is a chronic Cespedes catheter but is no pyuria. He has a chest x-ray evidence of concern of right upper lobe abnormality. No particular GI symptoms currently. With a positive finding of chest x-ray will treat as possible pneumonia and
follow chest x-ray. Cannot rule out the right upper lobe abnormality as edema as he has some vascular congestion in general.
Currently off of vasopressors.
Continue the broad-spectrum antibiotics pending culture data.
COVID and flu status negative
Cultures negative
Passed speech eval - IDDSI 6
Switch to unasyn and monitor
Stop Fluids
ASCVD
- Continue current CV med regimen.
- Monitor for any chest pain or other symptoms.
Paroxysmal Atrial Fibrillation
- Stable. Heart rates controlled on current medications.
- Continue amiodarone, carvedilol with holding parameters for BP.
- Continue Eliquis for stroke risk reduction.
DM-II
- Stable. Continue basal insulin at decreased dose.
- Insulin SS and adjust as needed for adequate control.
- Update A1C - 8.1
CKD III
- Stable. Renal function at / near known baseline.
- Follow for any changes.
Acute on Chronic HFpEF
- may need to restart lasix tomorrow if BPs remain stable
- Follow I/Os, daily weights, etc and resume diuretics when appropriate.
Fluids stopped
Ulcerative Colitis
- Stable. No recent issues or complaints.
- Continue azathioprine dosing and follow for any changes.
Spinal Stenosis
Chronic Pain Syndrome
- Stable. No new or increased symptoms.
- Continue current pain regimen including Fentanyl patch, Lyrica, etc.
- Hold / reduce sedating medications acutely.
- PT / OT evaluations.
Chronic Indwelling Cespedes
- Cespedes in place on admission.
- This was placed during prior admission here in September of this year.
- Plan was for eventual outpatient cysto and voiding trial - it is not clear whether this happened.
- Maintain Cespedes for now.
- Follow-up with Urology as an outpatient. Could consider TOV here prior to discharge.
PVD
-aterial duplex/abis
DVT Prophylaxis: On Eliquis
Code Status: Full
DW RN
Total time spent on today's encounter was 52 minutes which included time spent in counseling the patient/family regarding diagnosis and treatment plan as listed above, goals of care, and symptom management. Case was discussed with nursing staff .
All labs and imaging personally reviewed by me. Remainder the time spent in detailed review of previous records, lab data, imaging, and other medical provider documentation.
Anticipated Discharge: 24 - 48 hours
Subjective/Interval History
-
Date of Service: November 17, 2023
Feels better today, no acute events overnight
Objective Data
-
Labs:
Laboratory Results
11/17/23
05:17
WBC 3.5 L
Hgb 9.6 L
Hct 28.5 L
Plt Count 81 L
Sodium 139
Potassium 3.9
Chloride 111 H
Carbon Dioxide 23
BUN 27 H
Creatinine 1.0
Glucose 161 H
Calcium 8.8
Total Bilirubin 1.0
AST 108 H
ALT 97 H
Alkaline Phosphatase 66
Vital Signs:
Vital Signs
Temp Pulse Resp BP Pulse Ox
97.9 F 67 18 107/59 97
11/17/23 08:00 11/17/23 11:19 11/17/23 11:19 11/17/23 11:03 11/17/23 11:19
I&O
11/16/23 11/17/23 11/18/23
06:59 06:59 06:59
Intake Total 590 / 590 360 / 360
Output Total 1100 / 1100 950 / 950
Balance -510 / -510 -590 / -590
Review of Systems
-
Constitutional: Denies Fever or Chills
Respiratory: Reports Cough
Abdomen/GI: Denies Abdominal Pain, Nausea or Vomiting
Neuro: Denies Dizzy
Physical Exam
-
General: No Apparent Distress
HEENT: Moist Mucous Membranes
Respiratory: Wheezes (b/l lower lung gonsales) and Non Labored Respirations
Cardiac: Regular Rhythm and S1/S2
GI: Soft and Nontender
Neuro: AO x 3
Data Reviewed
-
Diagnostic Radiology: Image personally visualized and interpreted and Report Reviewed by me
Labs: Labs Reviewed by me
--- NOTE | 2023-11-17 14:09 | CM ---
manager psychiatry reviewed patient's chart and met with patient and spouse at bedside, patient resides at [facility] and plan will be for patient to return to [facility] when stable.
[facility]
Report [phone]
[2023-11-17] MEDS: LIPITOR 80 MG PO (17:28)
[2023-11-17 17:29] LABS: Glucose - Point of Care 238 mg/dl (70-99)
[2023-11-17 21:23] LABS: Glucose - Point of Care 253 mg/dl (70-99)
[2023-11-17] MEDS: LANTUS 0.100000000000000006 UNITS SC (22:05)
[2023-11-17] MEDS: FLUSH (NSS) 2 FLUSH IV (23:45)
[2023-11-18] VITALS (7 sets, daily range): BP systolic 110–137; BP diastolic 56–71; PULSE 61; O2SAT 96; BMI 26.7
[2023-11-18] MEDS: UNASYN IV ×3 (06:02→17:40)
[2023-11-18] MEDS: FLUSH (NSS) 2 FLUSH IV (06:03)
[2023-11-18 07:01] LABS: Hematocrit 28.9 % (39.0-52.0); Hemoglobin 9.4 g/dL (13.0-18.0); Mean Corp Hgb Conc. 32.5 g/dL (33.0-37.0); Mean Corpuscular Hgb 29.3 pg (27.0-31.0); Platelet Count 78 10^3/uL (130-400); Red Blood Cell Count 3.21 10^6/uL (4.70-6.10); Red Cell Dist. Width 23.8 % (11.5-14.5); White Blood Cell Count 4.3 10^3/uL (4.8-10.8)
[2023-11-18 07:37] LABS: ALT (SGPT) 73 U/L (0-50); AST (SGOT) 76 U/L (17-59); Albumin 2.6 g/dl (3.5-5.0); Alkaline Phosphatase 68 U/L (38-126); Blood Urea Nitrogen 26 mg/dl (9-20); Calcium 8.7 mg/dl (8.4-10.2); Carbon Dioxide 24 mmol/L (22-30); Chloride 110 mmol/L (98-107); Estimated Creatinine Clearance 58 ml/min; Glucose 134 mg/dl (70-99); Potassium 3.8 mmol/L (3.5-5.1); Sodium 139 mmol/L (135-145); Total Protein 5.7 g/dl (6.3-8.2); eGFR > 60.00
[2023-11-18] MEDS: NSS (PRESERVATIVE FREE) 10 ML IV (08:06)
[2023-11-18] MEDS: PROTONIX IV 40 MG IV (08:06)
[2023-11-18] MEDS: ELIQUIS 2.5 MG PO ×2 (08:08→21:20)
[2023-11-18] MEDS: IMURAN 75 MG PO (08:08)
[2023-11-18] MEDS: FLOMAX 0.400000000000000022 MG PO (08:08)
[2023-11-18] MEDS: COREG 3.125 MG PO ×2 (08:08→21:19)
[2023-11-18] MEDS: LYRICA 75 MG PO ×3 (08:08→21:27)
[2023-11-18] MEDS: PACERONE 200 MG PO (08:09)
[2023-11-18] MEDS: SANTYL OINTMENT 1 APPLIC TOPICAL (08:09)
[2023-11-18] MEDS: DUONEB 3 ML INH ×3 (08:32→20:49)
[2023-11-18 08:40] LABS: Glucose - Point of Care 135 mg/dl (70-99)
[2023-11-18] MEDS: NOVOLOG FLEXPEN-LOW RESISTANCE SC (09:30)
--- NOTE | 2023-11-18 10:31 | CM ---
Patient to return to [facility] when stable. No Auth required.
[facility]
Report [phone]
--- NOTE | 2023-11-18 11:04 | CON.VAS ---
Consultation
Consultation Request
Performing Provider: FIDEL Deluna for Dr. Cespedes
Reason for Consultation: Nonhealing wounds on the right lower extremity
Medical History
-
Chief Complaint: Shortness of breath
History of Present Illness:
83-year-old male with past medical history A-fib, diabetes, hypertension, CKD 3, chronic lower extremity lymphedema who presented to the ER on 11/14/2023 for fever, hypoxemia, shortness of breath. Patient admitted and being treated for pneumonia.
Patient well-known to the vascular service. 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 Vascular consult for right lower extremity nonhealing wound. Patient seen at bedside this a.m. image below of right lower extremity wound. Right
lower extremity +3 pitting edema, difficult to appreciate pulse exam. Left AKA stump +3 pitting edema.
Arterial ultrasounds: Right ankle brachial index is unreliable due to noncompressible arteries. Right toe brachial index measures 0.37 (normal greater than 0.7). High-grade stenosis within the distal SFA (velocity ratio 8.6). Infrapopliteal disease
may also be present
Right lateral lower leg
Past Medical History
Past Medical History: CHF, GERD, HTN and Other (ASCVD, Ulcerative Colitis, Ankle Deformity (Acquired))
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
Social History
Tobacco: Non-Smoker
Alcohol: Occasional
Living: Longterm
Employment: Retired
Family History
Family History: Reviewed & Not Pertinent
Allergies / Home Medications
Allergy/AdvReac Type Severity Reaction Status Date / Time
Sulfa (Sulfonamide Allergy Hives Verified 09/14/23 13:25
Antibiotics)
sulfasalazine Allergy mother Verified 09/14/23 13:25
states
hives
�Medication �Instructions �Recorded �Confirmed �Type
atorvastatin 80 mg tablet 80 mg PO DAILY@2029 High 03/30/23 11/14/23 History
Cholesterol
pantoprazole 40 mg tablet,delayed 40 mg PO DAILY Gastrointestinal 03/30/23 11/14/23 History
release Issue
folic acid-vit B6-vit B12 2.5 1 tab PO DAILY Supplement 04/16/23 11/14/23 History
mg-25 mg-2 mg tablet (Folbic)
carvedilol 3.125 mg tablet 3.125 mg PO BID #60 tabs 04/17/23 11/14/23 Rx
amiodarone 200 mg tablet 200 mg PO DAILY Arrhythmia 05/04/23 11/14/23 History
acetaminophen 325 mg tablet 650 mg PO Q4H PRN mild 06/22/23 11/14/23 History
pain/fever>100.4
bisacodyl 10 mg rectal suppository 10 mg KS DAILY PRN no BM or 06/22/23 11/14/23 History
MOM/lactulose ineffective
fluticasone propionate 50 1 spray intranasal QPM Allergies 06/22/23 11/14/23 History
mcg/actuation nasal
spray,suspension
insulin glargine 100 unit/mL 15 unit SC DAILY@2029 Diabetes 06/22/23 11/14/23 History
subcutaneous solution (Lantus
U-100 Insulin)
insulin lispro 100 unit/mL 0 - 12 sliding scale dose SC 06/22/23 11/14/23 History
subcutaneous pen (Humalog KwikPen TID@0730,1230,1730 Diabetes
(U-100) Insulin)
lactulose 20 gram/30 mL oral 20 g PO HS PRN Constipation 06/22/23 11/14/23 History
solution
mirtazapine 30 mg tablet 15 mg PO DAILY@2029 Mental 06/22/23 11/14/23 History
Health/Anxiety
multivitamin 1 tab PO DAILY Supplement 06/22/23 11/14/23 History
naloxone 4 mg/actuation nasal 4 mg intranasal Q2M PRN 06/22/23 11/14/23 History
spray (Narcan) constricted pupils,loss of
consc,slow breathing
pregabalin 75 mg capsule (Lyrica) 75 mg PO TID Pain 06/22/23 11/14/23 History
azathioprine 75 mg tablet 75 mg PO DAILY ulcerative colitis 09/14/23 11/14/23 History
apixaban 2.5 mg tablet (Eliquis) 2.5 mg PO BID #60 tabs 09/23/23 11/14/23 Rx
fentanyl 25 mcg/hr transdermal 1 patch transdermal Q72H Pain #1 ea 09/23/23 11/14/23 Rx
patch
tamsulosin 0.4 mg capsule 0.4 mg PO DAILY 30 days #30 caps 09/23/23 11/14/23 Rx
bumetanide 0.5 mg tablet 0.5 mg PO Q48H Fluid 11/14/23 11/14/23 History
Retention/Swelling
guaifenesin 100 mg/5 mL oral 200 mg PO Q6H Cough 11/14/23 11/14/23 History
liquid (Tussin)
ipratropium 0.5 mg-albuterol 3 mg 3 ml inhalation R Q6 11/14/23 11/14/23 History
(2.5 mg base)/3 mL nebulization Lung/Breathing Issues
soln
Review of Systems
-
History Source: Patient
All other systems: Negative unless noted
Constitutional: Reports Fever (Resolved)
Respiratory: Reports Trouble Breathing (Resolved)
Musculoskeletal: Reports Edema
Skin: Reports Other (Right lower extremity wound with)
Neurological: Reports No Symptoms
Physical Exam
Vital Signs
Temp Pulse Resp BP Pulse Ox
98.3 F 68 18 137/71 97
11/18/23 07:45 11/18/23 08:35 11/18/23 08:35 11/18/23 07:45 11/18/23 08:35
Lab Results
11/18/23 06:39
11/18/23 06:39
Ttq-X-Hjcuoyduakr Pept 6480 pg/ml 11/15/23 05:24
Physical Exam
General: No Apparent Distress
HEENT: Normocephalic and Atraumatic
Respiratory: Wheezes
Cardiac: Negative JVD
GI: Soft, Non Tender and Non Distended
Musculoskeletal: No Clubbing, No Cyanosis and Edema (+3 pitting edema hips to toes)
Skin: Warm and Other (See wound image above)
Neuro: Awake, Alert and Oriented
Psych: Calm
Assessment / Plan
-
83-year-old male with left AKA due to tissue loss, now with right lower extremity nonhealing wound
Diminished TBI
Plan:
-CTA with runoff
-Likely will require RLE arteriogram later this week
-Will follow-up with patient in team after scan complete
-Local wound care
-Recommend compression wrap on the right AKA stump if possible
-Discussed with Dr. Cespedes
[2023-11-18 11:35] LABS: Glucose - Point of Care 304 mg/dl (70-99)
[2023-11-18] MEDS: NOVOLOG FLEXPEN-LOW RESISTANCE 4 UNITS SC (11:42)
[2023-11-18] MEDS: DUONEB INH (11:54)
--- NOTE | 2023-11-18 13:38 | W.PN.HOSP.TC ---
Today's Communication/Plan
-
cxr
resume lasix
abx
cta with runoff
Assessment / Plan
Assessment / Plan
A/P: Patient is a 83y M with PMH significant for ASCVD, PA-Fib and DM-II who presents to ED from local [place] for evaluation of fever and hypoxemia.
#Septic Shock
Pneumonic process
Patient is a chronic Cespedes catheter but is no pyuria. He has a chest x-ray evidence of concern of right upper lobe abnormality. No particular GI symptoms currently. With a positive finding of chest x-ray will treat as possible pneumonia and
follow chest x-ray. Cannot rule out the right upper lobe abnormality as edema as he has some vascular congestion in general.
Currently off of vasopressors.
Continue the broad-spectrum antibiotics pending culture data.
COVID and flu status negative
Cultures negative
Passed speech eval - IDDSI 6
Switch to unasyn and monitor - improving
CXR today
Stop Fluids, start back on po lasix
PVD
-CTA runoff
-Vascular f/u
-Local wound care
-Recommend compression wrap on the right AKA stump if possible
ASCVD
- Continue current CV med regimen.
- Monitor for any chest pain or other symptoms.
Paroxysmal Atrial Fibrillation
- Stable. Heart rates controlled on current medications.
- Continue amiodarone, carvedilol with holding parameters for BP.
- Continue Eliquis for stroke risk reduction.
DM-II
- Stable. Continue basal insulin at decreased dose.
- Insulin SS and adjust as needed for adequate control.
- Update A1C - 8.1
CKD III
- Stable. Renal function at / near known baseline.
- Follow for any changes.
Acute on Chronic HFpEF
-start back on lasix
- Follow I/Os, daily weights, etc and resume diuretics when appropriate.
Fluids stopped
Ulcerative Colitis
- Stable. No recent issues or complaints.
- Continue azathioprine dosing and follow for any changes.
Spinal Stenosis
Chronic Pain Syndrome
- Stable. No new or increased symptoms.
- Continue current pain regimen including Fentanyl patch, Lyrica, etc.
- Hold / reduce sedating medications acutely.
- PT / OT evaluations.
Chronic Indwelling Cespedes
- Cespedes in place on admission.
- This was placed during prior admission here in September of this year.
- Plan was for eventual outpatient cysto and voiding trial - it is not clear whether this happened.
- Maintain Cespedes for now.
- Follow-up with Urology as an outpatient. Could consider TOV here prior to discharge.
DVT Prophylaxis: On Eliquis
Code Status: Full
DW RN
Total time spent on today's encounter was 53 minutes which included time spent in counseling the patient/family regarding diagnosis and treatment plan as listed above, goals of care, and symptom management. Case was discussed with nursing staff .
All labs and imaging personally reviewed by me. Remainder the time spent in detailed review of previous records, lab data, imaging, and other medical provider documentation.
Anticipated Discharge: > 48 hours
Subjective/Interval History
-
Date of Service: November 18, 2023
still with mild rhonchi RLL, feels better
Objective Data
-
Labs:
Laboratory Results
11/18/23
06:39
WBC 4.3 L
Hgb 9.4 L
Hct 28.9 L
Plt Count 78 L
Sodium 139
Potassium 3.8
Chloride 110 H
Carbon Dioxide 24
BUN 26 H
Creatinine 0.9
Glucose 134 H
Calcium 8.7
Total Bilirubin 1.0
AST 76 H
ALT 73 H
Alkaline Phosphatase 68
Vital Signs:
Vital Signs
Temp Pulse Resp BP Pulse Ox
98.0 F 61 18 131/70 96
11/18/23 11:30 11/18/23 11:30 11/18/23 11:30 11/18/23 11:30 11/18/23 11:30
I&O
11/17/23 11/18/23 11/19/23
06:59 06:59 06:59
Intake Total 360 / 360 194 / 1940
Output Total 950 / 950 850 / 850
Balance -590 / -590 1090 / 1090
Review of Systems
-
History Source: Patient
All other systems: Not reviewed unless documented
Physical Exam
-
General: No Apparent Distress
HEENT: Moist Mucous Membranes
Respiratory: Rhonchi (mild rll) and Non Labored Respirations
Cardiac: Regular Rhythm and S1/S2
GI: Soft and Nontender
Neuro: AO x 3
Data Reviewed
-
Diagnostic Radiology: Image personally visualized and interpreted and Report Reviewed by me
Labs: Labs Reviewed by me
[2023-11-18] MEDS: BUMEX 0.5 MG PO (13:59)
[2023-11-18] MEDS: NOVOLOG FLEXPEN-MODERATE RESISTANCE 7 UNITS SC (17:40)
[2023-11-18] MEDS: LIPITOR 80 MG PO (17:40)
[2023-11-18 17:41] LABS: Glucose - Point of Care 321 mg/dl (70-99)
[2023-11-18 21:16] LABS: Glucose - Point of Care 314 mg/dl (70-99)
[2023-11-18] MEDS: LANTUS 0.100000000000000006 UNITS SC (21:17)
[2023-11-19] MEDS: UNASYN IV ×3 (00:22→13:08)
[2023-11-19 03:15] VITALS: BP 111/54
[2023-11-19 06:00] VITALS: BMI 27.0
[2023-11-19 07:40] LABS: Hematocrit 30.2 % (39.0-52.0); Hemoglobin 9.9 g/dL (13.0-18.0); Mean Corp Hgb Conc. 32.8 g/dL (33.0-37.0); Mean Corpuscular Hgb 29.5 pg (27.0-31.0); Mean Corpuscular Volume 89.9 fL (80.0-94.0); Mean Platelet Volume 10.6 fL (7.4-10.4); Platelet Count 74 10^3/uL (130-400); Red Blood Cell Count 3.36 10^6/uL (4.70-6.10); Red Cell Dist. Width 23.4 % (11.5-14.5); White Blood Cell Count 7.1 10^3/uL (4.8-10.8)
[2023-11-19 07:50] VITALS: BP 129/67
[2023-11-19 07:56] LABS: ALT (SGPT) 58 U/L (0-50); AST (SGOT) 52 U/L (17-59); Albumin 2.6 g/dl (3.5-5.0); Alkaline Phosphatase 77 U/L (38-126); Blood Urea Nitrogen 24 mg/dl (9-20); Calcium 8.8 mg/dl (8.4-10.2); Carbon Dioxide 21 mmol/L (22-30); Chloride 110 mmol/L (98-107); Estimated Creatinine Clearance 52 ml/min; Glucose 166 mg/dl (70-99); Potassium 3.7 mmol/L (3.5-5.1); Sodium 140 mmol/L (135-145); Total Protein 5.7 g/dl (6.3-8.2); eGFR > 60.00
[2023-11-19] MEDS: DUONEB 3 ML INH ×4 (08:05→20:19)
[2023-11-19 08:23] LABS: Glucose - Point of Care 201 mg/dl (70-99)
[2023-11-19] MEDS: SANTYL OINTMENT 1 APPLIC TOPICAL (10:00)
[2023-11-19] MEDS: NOVOLOG FLEXPEN-MODERATE RESISTANCE 3 UNITS SC ×3 (10:01→18:31)
[2023-11-19] MEDS: DURAGESIC 25 MCG/HR PATCH 1 PATCH TRANSDERM (10:16)
[2023-11-19] MEDS: IMURAN 75 MG PO (10:20)
[2023-11-19] MEDS: COREG 3.125 MG PO ×2 (10:22→21:27)
[2023-11-19] MEDS: LYRICA 75 MG PO ×3 (10:23→21:16)
[2023-11-19] MEDS: PROTONIX 40 MG PO (10:23)
[2023-11-19] MEDS: FLOMAX 0.400000000000000022 MG PO (10:23)
[2023-11-19] MEDS: PACERONE 200 MG PO (10:24)
[2023-11-19] MEDS: ELIQUIS 2.5 MG PO (10:24)
--- NOTE | 2023-11-19 11:11 | WOUNDNOTE ---
WON RN NOTE: Followed up today regarding R leg wound. KIKI on R leg was noncompressible, TBI 0.37, stenosis distal SFA. Wound glass cleaner, most of brown eschar gone, base pink mixed with yellow slough, deeper as expected. Spoke with son at bedside who
confirmed plan is to follow up with Dr. Cespedes to see if patient is a candidate for revascularization. Will touch base with hospitalist to discuss plan. R medial ankle less red, silicone foam changed. R heel remains intact with silicone foam in use.
Prevalon heel boot remains in use. Turned patient onto side, sacrum remains blanchable red, MASD. No change in dry scrotal ulcer, Calazime in use. No changes in wound care will follow as needed.
--- NOTE | 2023-11-19 11:13 | CM ---
Patient to return to [facility] when stable.
[facility]
Report [phone]
[2023-11-19 12:06] LABS: Glucose - Point of Care 243 mg/dl (70-99)
--- NOTE | 2023-11-19 13:38 | W.PN.HOSP.TC ---
Today's Communication/Plan
-
ceftriaxone, flagyl
Stool cultures, cdiff
Angiogram orion
Assessment / Plan
Assessment / Plan
A/P: Patient is a 83y M with PMH significant for ASCVD, PA-Fib and DM-II who [place] local [place] for evaluation of fever and hypoxemia.
#Septic Shock
Pneumonic process
Patient is a chronic Cespedes catheter but is no pyuria. He has a chest x-ray evidence of concern of right upper lobe abnormality. No particular GI symptoms currently. With a positive finding of chest x-ray will treat as possible pneumonia and
follow chest x-ray. Cannot rule out the right upper lobe abnormality as edema as he has some vascular congestion in general.
Currently off of vasopressors.
Continue the broad-spectrum antibiotics pending culture data.
COVID and flu status negative
Cultures negative
Passed speech eval - IDDSI 6
Switch to ceftriaxone, flagyl (due to colitis and risk of aspiration as well)
Stop Fluids, start back on po lasix
Incentive Saeed, Acapella
PVD
-RLE angiogram tomorrow
-Vascular f/u
-Local wound care
-Recommend compression wrap on the right AKA stump if possible
#Diarrhea
-most likely 2/2 to abx
-colitis on iamging
-f/u stool cultures, cdiff
-Ceft and flagyl
ASCVD
- Continue current CV med regimen.
- Monitor for any chest pain or other symptoms.
Paroxysmal Atrial Fibrillation
- Stable. Heart rates controlled on current medications.
- Continue amiodarone, carvedilol with holding parameters for BP.
- Continue Eliquis for stroke risk reduction.
DM-II
- Stable. Continue basal insulin at decreased dose.
- Insulin SS and adjust as needed for adequate control.
- Update A1C - 8.1
CKD III
- Stable. Renal function at / near known baseline.
- Follow for any changes.
Acute on Chronic HFpEF
-start back on lasix
- Follow I/Os, daily weights, etc and resume diuretics when appropriate.
Fluids stopped
Ulcerative Colitis
- Stable. No recent issues or complaints.
- Continue azathioprine dosing and follow for any changes.
Spinal Stenosis
Chronic Pain Syndrome
- Stable. No new or increased symptoms.
- Continue current pain regimen including Fentanyl patch, Lyrica, etc.
- Hold / reduce sedating medications acutely.
- PT / OT evaluations.
Chronic Indwelling Cespedes
- Cespedes in place on admission.
- This was placed during prior admission here in September of this year.
- Plan was for eventual outpatient cysto and voiding trial - it is not clear whether this happened.
- Maintain Cespedes for now.
- Follow-up with Urology as an outpatient. Could consider TOV here prior to discharge.
DVT Prophylaxis: On Eliquis
Code Status: Full
DW RN
Total time spent on today's encounter was 52 minutes which included time spent in counseling the patient/family regarding diagnosis and treatment plan as listed above, goals of care, and symptom management. Case was discussed with nursing staff .
All labs and imaging personally reviewed by me. Remainder the time spent in detailed review of previous records, lab data, imaging, and other medical provider documentation.
Anticipated Discharge: 24 - 48 hours
Subjective/Interval History
-
Date of Service: November 19, 2023
No acute events, rhonchi slightly improved
Objective Data
-
Labs:
Laboratory Results
11/19/23
06:49
WBC 7.1
Hgb 9.9 L
Hct 30.2 L
Plt Count 74 L
Sodium 140
Potassium 3.7
Chloride 110 H
Carbon Dioxide 21 L
BUN 24 H
Creatinine 1.0
Glucose 166 H
Calcium 8.8
Total Bilirubin 1.0
AST 52
ALT 58 H
Alkaline Phosphatase 77
Vital Signs:
Vital Signs
Temp Pulse Resp BP Pulse Ox
98.2 F 83 17 129/67 97
11/19/23 07:50 11/19/23 08:05 11/19/23 08:05 11/19/23 07:50 11/19/23 08:05
I&O
11/18/23 11/19/23 11/20/23
06:59 06:59 06:59
Intake Total 1940 / 1940 240 / 240
Output Total 850 / 850 1500 / 1500
Balance 1090 / 1090 -1260 / -1260
Review of Systems
-
History Source: Patient
All other systems: Not reviewed unless documented
Data Reviewed
-
Diagnostic Radiology: Image personally visualized and interpreted and Report Reviewed by me
Labs: Labs Reviewed by me
--- NOTE | 2023-11-19 14:32 | PTOTSP ---
ST Follow-Up
Pt presents with mild to moderate oropharyngeal dysphagia 2/2 reduced dentition, reduced oral awareness, and reduced breathing/swallowing coordination.
Recommendations:
- DOWNGRADE pt's diet to MINCED MOIST SOLIDS and THIN LIQUIDS with meds as tolerated.
- ASPIRATION PRECAUTIONS: HOB upright for ALL PO intake; FULL SUPERVISION for all meals; one bite at a time; alternate liquids/solids; slow intake rate.
- RETURN TO VENDOR to f/u at a HIGH frequency to ensure pt is consuming the safest and least restrictive diet consistencies.
--- NOTE | 2023-11-19 14:47 | W.PN.UPDATE ---
Update Note
Progress Note Update
Discussed with patient and at bedside plan for right lower extremity arteriogram tomorrow with Dr. Jacob Cespedes III. Reviewed indication, procedure, and risks benefits with both patient and . Patient agreeable to proceed with
procedure tomorrow. N.p.o. after midnight, p.o. Eliquis held, and subcu DVT prophylaxis heparin ordered. Plan reviewed with hospitalist Dr. Michaels.
[2023-11-19 15:25] VITALS: BP 129/67
[2023-11-19] MEDS: FLAGYL 500 MG 100 IV ×2 (16:23→21:15)
[2023-11-19] MEDS: STERILE WATER FOR INJECTION 10 ML IV (16:24)
[2023-11-19] MEDS: ROCEPHIN 1000 MG IV (16:24)
[2023-11-19 18:28] LABS: Glucose - Point of Care 235 mg/dl (70-99)
[2023-11-19] MEDS: LIPITOR 80 MG PO (18:31)
[2023-11-19 21:08] LABS: Glucose - Point of Care 205 mg/dl (70-99)
[2023-11-19] MEDS: HEPARIN 5000 UNITS SC (21:28)
[2023-11-19] MEDS: LANTUS 0.100000000000000006 UNITS SC (21:30)
[2023-11-19 23:06] VITALS: BP 131/66
--- NOTE | 2023-11-19 23:30 | PTCARENOTE ---
Assumed care of pt from previous nurse. pt denies pain. Pt call cobos is within reach, pt rings brooklynn. will cont to monitor.
[2023-11-20] VITALS (32 sets, daily range): BP systolic 87–130; BP diastolic 53–69; PULSE 61–62; BMI 27.9
--- NOTE | 2023-11-20 04:00 | PTCARENOTE ---
Pt incontinent mod amt of loose stool,with assessment pts zaragoza cath was out and balloon deflated.Zaragoza replaced with ease,karena urine immediate return,pt tolerated procedure well.
[2023-11-20] MEDS: FLAGYL 500 MG 100 IV ×3 (05:20→21:16)
[2023-11-20 05:54] LABS: Glucose - Point of Care 126 mg/dl (70-99)
[2023-11-20] MEDS: NOVOLOG FLEXPEN-MODERATE RESISTANCE SC ×3 (06:30→18:00)
[2023-11-20] MEDS: DUONEB 3 ML INH ×4 (07:35→19:53)
[2023-11-20 08:34] LABS: Hematocrit 28.6 % (39.0-52.0); Hemoglobin 9.4 g/dL (13.0-18.0); Mean Corp Hgb Conc. 32.9 g/dL (33.0-37.0); Mean Corpuscular Volume 91.4 fL (80.0-94.0); Platelet Count 71 10^3/uL (130-400); Red Blood Cell Count 3.13 10^6/uL (4.70-6.10); Red Cell Dist. Width 23.2 % (11.5-14.5)
[2023-11-20] MEDS: IMURAN 75 MG PO (08:57)
[2023-11-20] MEDS: HEPARIN 5000 UNITS SC (08:59)
[2023-11-20] MEDS: PROTONIX 40 MG PO (09:04)
[2023-11-20] MEDS: COREG 3.125 MG PO ×2 (09:05→20:30)
[2023-11-20] MEDS: PACERONE 200 MG PO (09:05)
[2023-11-20] MEDS: FLOMAX 0.400000000000000022 MG PO (09:05)
[2023-11-20] MEDS: LYRICA 75 MG PO ×3 (09:06→21:08)
[2023-11-20] MEDS: SANTYL OINTMENT TOPICAL ×2 (09:06→10:00)
[2023-11-20 09:30] LABS: ALT (SGPT) 46 U/L (0-50); AST (SGOT) 40 U/L (17-59); Albumin 2.5 g/dl (3.5-5.0); Alkaline Phosphatase 84 U/L (38-126); Blood Urea Nitrogen 28 mg/dl (9-20); Calcium 8.9 mg/dl (8.4-10.2); Carbon Dioxide 23 mmol/L (22-30); Chloride 110 mmol/L (98-107); Estimated Creatinine Clearance 40 ml/min; Glucose 106 mg/dl (70-99); Potassium 3.5 mmol/L (3.5-5.1); Sodium 139 mmol/L (135-145); Total Bilirubin 0.9 mg/dl (0.2-1.3); Total Protein 5.6 g/dl (6.3-8.2); eGFR 54.51
[2023-11-20 10:18] LABS: Glucose - Point of Care 138 mg/dl (70-99)
--- NOTE | 2023-11-20 10:29 | W.SUR.PREOP ---
Pre-Operative Surgical Note
-
I have examined this patient prior to the performance of the scheduled procedure.
The patient's condition is unchanged from the time of the current History and
Physical and the patient is able to undergo the scheduled procedure.
[2023-11-20] MEDS: DUONEB INH (11:34)
--- NOTE | 2023-11-20 12:46 | CM ---
Patient to return to [facility] when stable, per chart possible arteriogram today.
[facility]
Report [id number]
--- NOTE | 2023-11-20 13:17 | OR.RPT ---
Operative Report
Operative Report
Date of Operation: 11/20/2023
Pre Op Diagnosis: Critical limb threatening ischemia, right lower extremity with nonhealing lateral calf wounds
Post Op Diagnosis: Critical limb threatening ischemia, right lower extremity with nonhealing lateral calf wounds
Procedure:
1.) Intravascular lithotripsy to calcified right superficial femoral artery and popliteal artery stenoses (7 mm x 60 mm M5+ Shockwave balloon)
2.) Drug-coated balloon angioplasty to right superficial femoral artery and popliteal artery (6 mm x 300 mm Lutonix)
3.) Sharp excisional debridement of right lateral calf wounds including skin, subcutaneous tissue, muscle and fascia (wound dimensions 11 cm x 2 cm). Placement of VAC dressing.
4.) Diagnostic aortobiiliac arteriogram
5.) Diagnostic right lower extremity arteriogram
6.) Ultrasound-guided percutaneous access to the left common femoral artery
Surgeon: Jacob Cespedes III, MD
Clinical Documentation Nurse: Alexandru Miramontes MD PhD, PGY1, FIDEL Deluna (assisted with sharp excisional debridement and VAC placement), FIDEL Deal (assisted with sharp excisional debridement and VAC placement)
Anesthesia: Sedation with local
Complications: None
Estimated Blood Loss: Less than 20 cc
History and Indications for Procedure: 83-year-old male with critical limb threatening ischemia of his right lower extremity manifested by nonhealing right lateral calf wounds. He had a prior left [id number] amputation.
Procedure in Detail: Antoine Garcia was correctly identified and placed supine on the operating table. After adequate induction of anesthesia the bilateral groins were prepped and draped in the usual sterile fashion. A timeout was performed with the
nursing and anesthesia staff confirming the patient's identity as well as the nature and laterality of the procedure.
The left common femoral artery was identified under ultrasound guidance. The artery was patent. The superior and inferior aspects of the femoral head were identified with radiographic guidance and marked at the skin level. The proposed puncture site
was infiltrated with local anesthesia. We saved a copy of the ultrasound image to the medical record. Under ultrasound guidance we accessed the left common femoral artery with a micropuncture needle and upsized to a 5 Fr sheath over a Advanced Circulatory wire.
The wire and a Shepherds hook flush catheter were advanced into the distal abdominal aorta and a diagnostic aorto-biiliac arteriogram was performed:
AORTO-ILIAC ARTERIOGRAM:
Aorta: Peripherally calcified. Patent with no significant stenosis identified
Right common iliac artery: Peripherally calcified. Patent with no significant stenosis identified
Right external iliac artery: Peripherally calcified. Patent with no significant stenosis identified
Left common iliac artery: Peripherally calcified. Patent with no significant stenosis identified
Left external iliac artery: Peripherally calcified. Patent with no significant stenosis identified
Under roadmap guidance using a Glidewire and the Shepherds hook catheter we selected the right common iliac artery and then the external iliac artery. A catheter was tracked up and over the aortic bifurcation and placed in the distal external iliac
artery. A diagnostic right lower extremity arteriogram was then performed which demonstrated the following:
RIGHT LOWER EXTREMITY:
Common femoral artery: Peripherally calcified. Patent with no significant stenosis identified
Profunda femoral artery: Patent with no significant stenosis identified
Superficial femoral artery: Patent. Scattered areas of heavy bulky calcified plaque contributing to high-grade stenosis
Popliteal artery: Patent. Scattered areas of high-grade calcified stenosis in the above-knee popliteal artery and behind the knee. Patent below the knee segment.
Anterior tibial artery: Occluded
Tibioperoneal trunk: Patent
Peroneal artery: Occluded
Posterior tibial artery: Lone tibial artery patent.
ENDOVASCULAR INTERVENTION: Systemic heparin was administered. Exchanged out for a 6 Fr 45 cm sheath over a StorOmise wire. Selected the right superficial femoral artery under roadmap guidance with Quickcross catheter and glidewire. The SFA and popliteal
artery stenoses were crossed with a Quickcross and Glidewire. The wire and catheter were advanced into the below-knee popliteal artery and subtraction angio confirmed proper position in the true lumen. Exchanged out for a 0.014 wire. Due to the
heavily calcified nature of the arterial disease and in an effort to modify the calcium to achieve maximum luminal gain with endovascular intervention I elected to proceed with intravascular lithotripsy. A 7 mm x 60 mm M5+ Shockwave balloon was
placed across the popliteal artery stenosis under roadmap guidance. Alternating rounds of lithotripsy pulse delivery at sub-nominal pressure and angioplasty at nominal pressure was performed across the stenosis. In between rounds of pulse delivery
and angioplasty the balloon was deflated and repositioned under roadmap guidance. All areas of calcified stenosis in the popliteal artery and superficial femoral artery were treated with this approach. All 300 pulses were delivered.
Following this I brought into position a 6 mm x 300 mm Lutonix drug-coated balloon. The balloon was positioned in the desired location under roadmap guidance. The balloon was then inflated to nominal pressure and held in place for 3 minutes before
slowly deflating and removing over the wire.
COMPLETION ARTERIOGRAM: Excellent technical result. Widely patent superficial femoral and popliteal arteries with good flow and no filling defects, dissection or significant residual stenosis identified.
Satisfied with this result we concluded the procedure. The sheath tip was pulled back into the left external iliac artery. Protamine was administered.
I then focused my attention on the wound debridement. The right lateral leg was prepped and redraped in the usual sterile fashion. Using forceps, scalpel and scissors we sharply debrided the right lateral calf wounds. Fibrinous exudate was
debrided from the wounds. Necrotic tissue was sharply debrided from the wounds. Wound debridement involved the skin, subcutaneous tissue, muscle and fascia. The wound was debrided back to healthy bleeding tissue throughout. Hemostasis was
achieved in the wound bed with electrocautery. The wound was then irrigated with saline solution. A VAC dressing was then fashioned appropriately and applied to the wound.
The patient tolerated the procedure well and was taken to the recovery area in stable condition.
Attestation: I was present and responsible for the entire procedure.
Signed:
Jacob Cespedes III, MD
[facility]
[phone] (cell)
--- NOTE | 2023-11-20 13:27 | W.IMMPOSTOP ---
Surgical Immed Post Op Note
-
Primary Surgeon: Dr. Jacob Cespedes III, MD
Assisting Surgeon: Dr. Alexandru Miramontes MD, PhD (PGY-1)
Pre-op Diagnosis: Critical limb threatening ischemia with non healing wounds on right lower extremity
Post-op Diagnosis: Critical limb threatening ischemia with non healing wounds on right lower extremity
Procedure Performed: Diagnostic arteriogram, intravascular lithotripsy, drug coated balloon angioplasty, wound debridement and vacuum assisted closure
Anesthesia Type: MAC
Specimen / Cultures: None
Estimated Blood Loss: Minimal
Complications: None
Operative Findings: The patient want brought to the OR and placed in the supine position. Following induction of anesthesia, the groins were bilaterally prepped and the patient was draped in usual sterile fashion. C arm was used to identify the
superior and inferior aspects of the prosthetic femoral head. Ultrasound guidance was used to identify the left PSYCHIATRIC ASSISTANT. Micropuncture needle was used to access the left PSYCHIATRIC ASSISTANT. This was upsized to a 5 guamanian sheath over a Bentson wire. Then a rojas's
hook catheter was advanced into the distal abdominal aorta over a glidewire. Diagnostic arteriogram showed no significant occlusive disease in the iliacs bilaterally. A guidewire and rojas's hook catheter were used to select the contralateral
iliofemoral system. The catheter was advanced into the contralateral right PSYCHIATRIC ASSISTANT. Diagnostic arteriogram showed extensive occlusive disease of the right SFA, right popliteal artery, and single vessel posterior tibial artery run off with occlusion of
the anterior tibial artery and peroneal artery. Intravascular lithotripsy was performed from the popliteal to the SFA proximally. After this, drug coated balloon angioplasty was performed along the same segments. Completion arteriogram showed
improved patency of the right SFA and popliteal vessels. At this point, the wounds on the right lower extremity were debrided and irrigated. Vacuum assisted closure device was placed and the extremity was wrapped in JEANINE wrap. At the completion of
the case there were dopplerable dorsalis pedis and posterior tibial arteries. The sheath was removed in the OR under manual pressure. The patient was transferred to the PACU in stable condition.
[2023-11-20 13:37] LABS: Glucose - Point of Care 111 mg/dl (70-99)
--- NOTE | 2023-11-20 14:34 | W.PN.HOSP.TC ---
Addendum entered and electronically signed by Alfredo Otero MD 11/21/23 17:47:
OD #1 Diagnostic arteriogram, intravascular lithotripsy, drug coated balloon angioplasty, wound debridement and vacuum assisted closure
-asa, resume eliquis
-wound vac in place
Addendum entered and electronically signed by Alfredo Otero MD 11/21/23 16:47:
Pancytopenia, chronic
Original Note:
Today's Communication/Plan
-
rle arteriogram today
cont abx
wean o2
Assessment / Plan
Assessment / Plan
A/P: Patient is a 83y M with PMH significant for ASCVD, PA-Fib and DM-II who presents to ED from local [place] for evaluation of fever and hypoxemia.
#Septic Shock
Pneumonic process
Patient is a chronic Cespedes catheter but is no pyuria. He has a chest x-ray evidence of concern of right upper lobe abnormality. No particular GI symptoms currently. With a positive finding of chest x-ray will treat as possible pneumonia and
follow chest x-ray. Cannot rule out the right upper lobe abnormality as edema as he has some vascular congestion in general.
Currently off of vasopressors.
Continue the broad-spectrum antibiotics pending culture data.
COVID and flu status negative
Cultures negative
Passed speech eval - IDDSI 6
Switch to ceftriaxone, flagyl (due to colitis and risk of aspiration as well) - provide 7-10 days of abx total
Stop Fluids, start back on po lasix
Incentive [place], Acapella
PVD
-RLE angiogram tomorrow
-Vascular f/u
-Local wound care
-Recommend compression wrap on the right AKA stump if possible
#Diarrhea
-most likely 2/2 to abx
-improving
-colitis on iamging
-f/u stool cultures
-Ceft and flagyl
ASCVD
- Continue current CV med regimen.
- Monitor for any chest pain or other symptoms.
Paroxysmal Atrial Fibrillation
- Stable. Heart rates controlled on current medications.
- Continue amiodarone, carvedilol with holding parameters for BP.
- Continue Eliquis for stroke risk reduction.
DM-II
- Stable. Continue basal insulin at decreased dose.
- Insulin SS and adjust as needed for adequate control.
- Update A1C - 8.1
CKD III
- Stable. Renal function at / near known baseline.
- Follow for any changes.
Acute on Chronic HFpEF
-start back on lasix
- Follow I/Os, daily weights, etc and resume diuretics when appropriate.
Fluids stopped
Ulcerative Colitis
- Stable. No recent issues or complaints.
- Continue azathioprine dosing and follow for any changes.
Spinal Stenosis
Chronic Pain Syndrome
- Stable. No new or increased symptoms.
- Continue current pain regimen including Fentanyl patch, Lyrica, etc.
- Hold / reduce sedating medications acutely.
- PT / OT evaluations.
Chronic Indwelling Cespedes
- Cespedes in place on admission.
- This was placed during prior admission here in September of this year.
- Plan was for eventual outpatient cysto and voiding trial - it is not clear whether this happened.
- Maintain Cespedes for now.
- Follow-up with Urology as an outpatient. Could consider TOV here prior to discharge.
DVT Prophylaxis: On Eliquis
Code Status: Full
DW RN
Total time spent on today's encounter was 51 minutes which included time spent in counseling the patient/family regarding diagnosis and treatment plan as listed above, goals of care, and symptom management. Case was discussed with nursing staff .
All labs and imaging personally reviewed by me. Remainder the time spent in detailed review of previous records, lab data, imaging, and other medical provider documentation.
Anticipated Discharge: 24 - 48 hours
Subjective/Interval History
-
Date of Service: November 20, 2023
No acute events, respiratory status improving
Objective Data
-
Labs:
Laboratory Results
11/20/23
07:07
WBC 6.0
Hgb 9.4 L
Hct 28.6 L
Plt Count 71 L
Sodium 139
Potassium 3.5
Chloride 110 H
Carbon Dioxide 23
BUN 28 H
Creatinine 1.3
Glucose 106 H
Calcium 8.9
Total Bilirubin 0.9
AST 40
ALT 46
Alkaline Phosphatase 84
Vital Signs:
Vital Signs
Temp Pulse Resp BP Pulse Ox
98.9 F 60 19 106/64 97
11/20/23 13:35 11/20/23 14:05 11/20/23 14:05 11/20/23 14:05 11/20/23 14:05
I&O
11/19/23 11/20/23 11/21/23
06:59 06:59 06:59
Intake Total 240 / 240 600 / 600 50 / 50
Output Total 1500 / 1500 600 / 600 200 / 200
Balance -1260 / -1260 0 / 0 -150 / -150
Review of Systems
-
History Source: Patient
All other systems: Not reviewed unless documented
Physical Exam
-
General: No Apparent Distress
HEENT: Moist Mucous Membranes
Respiratory: Clear to Auscultation and Non Labored Respirations
Cardiac: Regular Rhythm and S1/S2
GI: Soft and Nontender
Skin: Other (rt lower extremity wound)
Neuro: AO x 3
Data Reviewed
-
Diagnostic Radiology: Image personally visualized and interpreted and Report Reviewed by me
CT Scan: Image personally visualized and interpreted and Report Reviewed by me
Labs: Labs Reviewed by me
[2023-11-20] MEDS: NSS 1000 IV (14:39)
[2023-11-20] MEDS: LYRICA PO (15:36)
[2023-11-20 16:49] LABS: Glucose - Point of Care 136 mg/dl (70-99)
--- NOTE | 2023-11-20 17:00 | PTCARENOTE ---
1700 Noted Wound Vac right leg dressing started to alarm blockage and low pressure. Notified Merary Hernández WELDING MACHINE OPERATOR [employer] (vascular) via phone and ordered to remove wound vac dressing and apply saline wet to dry dressing with ABD pads and arturo wrap. Explain to pt.
[2023-11-20] MEDS: BUMEX 0.5 MG PO (17:23)
[2023-11-20] MEDS: STERILE WATER FOR INJECTION 10 ML IV (17:36)
[2023-11-20] MEDS: ROCEPHIN 1000 MG IV (17:36)
[2023-11-20] MEDS: LIPITOR 80 MG PO (20:30)
[2023-11-20 21:10] LABS: Glucose - Point of Care 206 mg/dl (70-99)
[2023-11-20] MEDS: LANTUS 0.100000000000000006 UNITS SC (21:15)
[2023-11-21 03:00] VITALS: BP 124/66
[2023-11-21] MEDS: FLAGYL 500 MG 100 IV ×3 (05:08→21:37)
[2023-11-21 06:00] VITALS: BMI 31.4
--- NOTE | 2023-11-21 06:38 | W.PN.VS ---
Today's Communication / Plan
-
Patient seen and examined at bedside with Dr. Jacob Cespedes III, below plan reviewed with attending
Assessment/Plan
-
Assessment: 83-year-old male POD #1 Diagnostic arteriogram, intravascular lithotripsy, drug coated balloon angioplasty, wound debridement and vacuum assisted closure
Plan:
Continue wound VAC changes, can be on [facility] schedule going forward, wound care consulted. If wound VAC begins to alarm, can be removed and replaced with wet-to-dry dressing, ABD, and Dong wrap with mild compression
Continue aspirin and can reinitiate Eliquis from a vascular surgery perspective
Will have patient follow-up in our office
Can remove left groin Tegaderm later this afternoon
Subjective Data
-
Date of Service: November 21, 2023
Patient seen and examined at bedside, offers no complaints. Denies left groin pain. Reports tolerating p.o. diet.
Objective Data
-
Vital Signs
Temp Pulse Resp BP Pulse Ox
96.5 F L 61 18 124/66 96
11/21/23 03:00 11/21/23 03:00 11/21/23 03:00 11/21/23 03:00 11/21/23 03:00
Intake and Output
11/19/23 11/20/23 11/21/23
06:59 06:59 06:59
Intake Total 240 / 240 600 / 600 1630 / 1630
Output Total 1500 / 1500 600 / 600 625 / 625
Balance -1260 / -1260 0 / 0 1005 / 1005
Intake:
Oral fluids 300 / 300 480 / 480
IV fluids (Total) 1050 / 1050
NSS @ 80 ML/HR 0 / 0
Normosol 50 / 50
IV piggybacks 240 / 240 300 / 300 100 / 100
Output:
Drain Output (Total) 0 / 0
Right Lower Leg Wound Vac A 0 / 0
Urine, Cespedes 1500 / 1500 600 / 600 625 / 625
Calcium 8.9 mg/dl (8.4-10.2) 11/20/23 07:07
Total Bilirubin 0.9 mg/dl (0.2-1.3) 11/20/23 07:07
Direct Bilirubin 0.4 mg/dl (0.0-0.4) 11/15/23 05:24
AST 40 U/L (17-59) 11/20/23 07:07
ALT 46 U/L (0-50) 11/20/23 07:07
Alkaline Phosphatase 84 U/L (38-126) 11/20/23 07:07
Total Protein 5.6 g/dl (6.3-8.2) L 11/20/23 07:07
Albumin 2.5 g/dl (3.5-5.0) L 11/20/23 07:07
Physical Exam
-
Awake and alert, no apparent distress
No tachycardia
No dyspnea on room air
Abdomen nondistended, nontender
Left groin CDI, no evidence hematoma, ulcer on compartment soft
Right lateral calf wound with wet-to-dry dressing removed area with evidence of viable granulation appering tissue present, wound VAC replaced
[2023-11-21 07:30] VITALS: BP 120/66
[2023-11-21] MEDS: DUONEB 3 ML INH ×4 (07:41→20:00)
[2023-11-21 07:54] LABS: Glucose - Point of Care 225 mg/dl (70-99)
[2023-11-21 08:26] LABS: Mean Corp Hgb Conc. 32.3 g/dL (33.0-37.0); Mean Corpuscular Hgb 29.4 pg (27.0-31.0); Mean Corpuscular Volume 91.2 fL (80.0-94.0); Platelet Count 85 10^3/uL (130-400); Red Cell Dist. Width 22.7 % (11.5-14.5); White Blood Cell Count 6.3 10^3/uL (4.8-10.8)
[2023-11-21] MEDS: NOVOLOG FLEXPEN-MODERATE RESISTANCE 3 UNITS SC (08:46)
[2023-11-21] MEDS: ASPIR LOW (ENTERIC COATED) 81 MG PO (08:55)
[2023-11-21] MEDS: COREG 3.125 MG PO ×2 (08:55→20:34)
[2023-11-21] MEDS: SANTYL OINTMENT TOPICAL (08:56)
[2023-11-21] MEDS: PROTONIX 40 MG PO (08:56)
[2023-11-21] MEDS: FLOMAX 0.400000000000000022 MG PO (08:56)
[2023-11-21] MEDS: IMURAN 75 MG PO (08:56)
[2023-11-21] MEDS: LYRICA 75 MG PO ×3 (08:56→21:37)
[2023-11-21] MEDS: PACERONE 200 MG PO (09:04)
[2023-11-21 09:15] LABS: ALT (SGPT) 42 U/L (0-50); AST (SGOT) 41 U/L (17-59); Albumin 2.8 g/dl (3.5-5.0); Alkaline Phosphatase 91 U/L (38-126); Blood Urea Nitrogen 36 mg/dl (9-20); Calcium 8.7 mg/dl (8.4-10.2); Carbon Dioxide 22 mmol/L (22-30); Chloride 108 mmol/L (98-107); Estimated Creatinine Clearance 38 ml/min; Glucose 213 mg/dl (70-99); Potassium 4.4 mmol/L (3.5-5.1); Sodium 139 mmol/L (135-145); Total Bilirubin 0.7 mg/dl (0.2-1.3); Total Protein 6.1 g/dl (6.3-8.2); eGFR 42.49
[2023-11-21 11:15] VITALS: BP 102/51
[2023-11-21 11:47] LABS: Glucose - Point of Care 307 mg/dl (70-99)
[2023-11-21] MEDS: TYLENOL 650 MG PO (11:57)
--- NOTE | 2023-11-21 12:04 | CM ---
Addendum entered by Sara Huizar 11/21/23 12:12:
transfer on hold.
Needs new PT/OT orders.
Ambulance transport forms on chart.
referral placed via [facility].
Plan: back to [facility] when stable, no auth needed.
Original Note:
Patient for transfer back to [facility] today.
[facility]
Report [id number]
d
[2023-11-21] MEDS: NOVOLOG FLEXPEN-MODERATE RESISTANCE 7 UNITS SC (12:19)
--- NOTE | 2023-11-21 12:29 | PTOTSP ---
Speech Language Pathology
Swallowing Therapy
Pt continues to present with mild to moderate oropharyngeal dysphagia 2/2 reduced dentition, reduced oral awareness, and reduced breathing/swallowing coordination. Recommend maintaining current diet level with FAX MACHINE OPERATOR follow up at the next level of care
to continue to assess for safest and least restrictive diet level.
Recommendations:
1. Minced and Moist Solids (IDDSI 5), thin liquids (IDDSI 0)
2. Meds as tolerated
3. Aspiration precautions: HOB upright for ALL PO intake; FULL SUPERVISION for all meals; one bite at a time; alternate liquids/solids; slow intake rate.
4. FAX MACHINE OPERATOR to f/u to determine safest and least restrictive diet level; recommend FAX MACHINE OPERATOR follow up at the next level of care
[2023-11-21] MEDS: LR 1000 IV (13:57)
--- NOTE | 2023-11-21 14:33 | PTCARENOTE ---
LR bolus was ordered for pt. Verified with Dr Otero the rate it was to run at. Initially stated over one hour. Questioned rate due to his history of heart failure. stated to run over 5 hours.
[2023-11-21 15:45] VITALS: BP 112/54
[2023-11-21] MEDS: STERILE WATER FOR INJECTION 10 ML IV (16:21)
[2023-11-21] MEDS: ROCEPHIN 1000 MG IV (16:21)
[2023-11-21 17:00] LABS: Glucose - Point of Care 293 mg/dl (70-99)
[2023-11-21] MEDS: NOVOLOG FLEXPEN-MODERATE RESISTANCE 5 UNITS SC (17:55)
[2023-11-21] MEDS: LIPITOR 80 MG PO (17:56)
[2023-11-21] MEDS: ELIQUIS 2.5 MG PO (20:33)
[2023-11-21 20:42] LABS: Glucose - Point of Care 309 mg/dl (70-99)
[2023-11-21] MEDS: LANTUS 0.100000000000000006 UNITS SC (20:42)
[2023-11-21 21:25] LABS: Glucose - Point of Care 288 mg/dl (70-99)
[2023-11-21 23:00] VITALS: BP 130/60
[2023-11-22] MEDS: FLAGYL 500 MG 100 IV ×3 (05:06→21:52)
[2023-11-22 06:00] VITALS: BMI 32.2
[2023-11-22] MEDS: DUONEB 3 ML INH ×4 (08:07→19:57)
[2023-11-22 08:08] LABS: Glucose - Point of Care 241 mg/dl (70-99)
[2023-11-22 08:26] VITALS: BP 127/68
[2023-11-22] MEDS: LYRICA 75 MG PO ×3 (08:53→21:53)
[2023-11-22] MEDS: PROTONIX 40 MG PO (08:53)
[2023-11-22] MEDS: ELIQUIS 2.5 MG PO ×2 (08:55→20:43)
[2023-11-22] MEDS: FLOMAX 0.400000000000000022 MG PO (08:55)
[2023-11-22] MEDS: PACERONE 200 MG PO (08:55)
[2023-11-22] MEDS: ASPIR LOW (ENTERIC COATED) 81 MG PO (08:55)
[2023-11-22] MEDS: SANTYL OINTMENT TOPICAL (08:56)
[2023-11-22] MEDS: IMURAN 75 MG PO (08:56)
[2023-11-22] MEDS: COREG 3.125 MG PO ×2 (08:56→20:43)
[2023-11-22] MEDS: NOVOLOG FLEXPEN-MODERATE RESISTANCE 3 UNITS SC ×2 (08:59→17:26)
[2023-11-22 09:13] LABS: Hematocrit 25.2 % (39.0-52.0); Hemoglobin 8.6 g/dL (13.0-18.0); Mean Corp Hgb Conc. 34.1 g/dL (33.0-37.0); Mean Corpuscular Hgb 29.5 pg (27.0-31.0); Mean Corpuscular Volume 86.3 fL (80.0-94.0); Platelet Count 74 10^3/uL (130-400); Red Blood Cell Count 2.92 10^6/uL (4.70-6.10); Red Cell Dist. Width 22.6 % (11.5-14.5); White Blood Cell Count 3.8 10^3/uL (4.8-10.8)
[2023-11-22 09:40] LABS: ALT (SGPT) 36 U/L (0-50); AST (SGOT) 36 U/L (17-59); Albumin 2.6 g/dl (3.5-5.0); Alkaline Phosphatase 78 U/L (38-126); Blood Urea Nitrogen 47 mg/dl (9-20); Calcium 8.4 mg/dl (8.4-10.2); Carbon Dioxide 19 mmol/L (22-30); Chloride 106 mmol/L (98-107); Estimated Creatinine Clearance 30 ml/min; Glucose 204 mg/dl (70-99); Potassium 3.9 mmol/L (3.5-5.1); Sodium 136 mmol/L (135-145); Total Bilirubin 0.6 mg/dl (0.2-1.3); Total Protein 5.8 g/dl (6.3-8.2); eGFR 32.51
[2023-11-22] MEDS: DURAGESIC 25 MCG/HR PATCH 1 PATCH TRANSDERM (10:33)
[2023-11-22 11:44] LABS: Glucose - Point of Care 273 mg/dl (70-99)
--- NOTE | 2023-11-22 13:31 | W.PN.HOSP.TC ---
Today's Communication/Plan
-
nahco3
renal consulted
renal/bladder us, urine creatine, sodium
pvr
Assessment / Plan
Assessment / Plan
A/P: Patient is a 83y M with PMH significant for ASCVD, PA-Fib and DM-II who [place] from local [place] for evaluation of fever and hypoxemia.
#Septic Shock
Pneumonic process
Patient is a chronic Cespedes catheter but is no pyuria. He has a chest x-ray evidence of concern of right upper lobe abnormality. No particular GI symptoms currently. With a positive finding of chest x-ray will treat as possible pneumonia and
follow chest x-ray. Cannot rule out the right upper lobe abnormality as edema as he has some vascular congestion in general.
Currently off of vasopressors.
Continue the broad-spectrum antibiotics pending culture data.
COVID and flu status negative
Cultures negative
Passed speech eval - IDDSI 6
Switch to ceftriaxone, flagyl (due to colitis and risk of aspiration as well) - provide 7-10 days of abx total
is in LENI, now provide gentle hydration
Incentive Saeed, Acapella
PVD
-POD #2 Diagnostic arteriogram, intravascular lithotripsy, drug coated balloon angioplasty, wound debridement and vacuum assisted closure
-Continue wound VAC changes, can be on [facility] schedule going forward, wound care consulted. If wound VAC begins to alarm, can be removed and replaced with wet-to-dry dressing, ABD, and Dong wrap with mild compression
-Continue aspirin
-f/u vascular outpatient
#Diarrhea
-most likely 2/2 to abx
-improving
-colitis on iamging
-stool cultures ordered but not samples taken
-Ceft and flagyl
#LENI on CKD III
- Suspect contrast nephropathy s/p angiogram
-s/p 500cc lr
-gentle 50cc NaHCO3 x 500cc bag and monitor
-F/u Urine Na/Cr, PVR, renal and Bladder US
-hold lasix
-Nephro consulted
ASCVD
- Continue current CV med regimen.
- Monitor for any chest pain or other symptoms.
Paroxysmal Atrial Fibrillation
- Stable. Heart rates controlled on current medications.
- Continue amiodarone, carvedilol with holding parameters for BP.
- Continue Eliquis for stroke risk reduction.
DM-II
- Stable. Continue basal insulin at decreased dose.
- Insulin SS and adjust as needed for adequate control.
- Update A1C - 8.1
Acute on Chronic HFpEF, now resolved
-initially on lasix but due to leni - now held
- Follow I/Os, daily weights, etc and resume diuretics when appropriate.
Ulcerative Colitis
- Stable. No recent issues or complaints.
- Continue azathioprine dosing and follow for any changes.
Spinal Stenosis
Chronic Pain Syndrome
- Stable. No new or increased symptoms.
- Continue current pain regimen including Fentanyl patch, Lyrica, etc.
- Hold / reduce sedating medications acutely.
- PT / OT evaluations.
Chronic Indwelling Cespedes
- Cespedes in place on admission.
- This was placed during prior admission here in September of this year.
- Plan was for eventual outpatient cysto and voiding trial - it is not clear whether this happened.
- Maintain Cespedes for now.
- Follow-up with Urology as an outpatient. Could consider TOV here prior to discharge.
DVT Prophylaxis: On Eliquis
Code Status: Full
DW RN
Total time spent on today's encounter was 52 minutes which included time spent in counseling the patient/family regarding diagnosis and treatment plan as listed above, goals of care, and symptom management. Case was discussed with nursing staff .
All labs and imaging personally reviewed by me. Remainder the time spent in detailed review of previous records, lab data, imaging, and other medical provider documentation.
Anticipated Discharge: 24 - 48 hours
Subjective/Interval History
-
Date of Service: November 22, 2023
No acute events, renal function worsened today
Objective Data
-
Labs:
Laboratory Results
11/22/23
07:53
WBC 3.8 L
Hgb 8.6 L
Hct 25.2 L
Plt Count 74 L
Sodium 136
Potassium 3.9
Chloride 106
Carbon Dioxide 19 L
BUN 47 H
Creatinine 2.0 H
Glucose 204 H
Calcium 8.4
Total Bilirubin 0.6
AST 36
ALT 36
Alkaline Phosphatase 78
Vital Signs:
Vital Signs
Temp Pulse Resp BP Pulse Ox
98.6 F 62 16 127/68 96
11/22/23 08:26 11/22/23 11:46 11/22/23 11:46 11/22/23 08:26 11/22/23 11:46
I&O
11/21/23 11/22/23 11/23/23
06:59 06:59 06:59
Intake Total 1630 / 1630 1450 / 1450 420 / 420
Output Total 625 / 625 350 / 350 150 / 150
Balance 1005 / 1005 1100 / 1100 270 / 270
Review of Systems
-
History Source: Patient
All other systems: Not reviewed unless documented
Physical Exam
-
General: No Apparent Distress
HEENT: Moist Mucous Membranes
Respiratory: Clear to Auscultation and Non Labored Respirations
Cardiac: Regular Rhythm and S1/S2
GI: Soft and Nontender
Skin: Other (Right lateral calf wound: wound VAC replaced)
Neuro: AO x 3
Data Reviewed
-
Diagnostic Radiology: Image personally visualized and interpreted and Report Reviewed by me
CT Scan: Image personally visualized and interpreted and Report Reviewed by me
Labs: Labs Reviewed by me
[2023-11-22] MEDS: NOVOLOG FLEXPEN-MODERATE RESISTANCE 5 UNITS SC (13:37)
--- NOTE | 2023-11-22 14:26 | W.CON.NEPH ---
Consultation
-
Date/Time Consultation Requested: 11/22/23 1400
Date/Time Consultation Performed: 11/22/23 1600
Requesting Provider: Alfredo Mack
Performing Provider: Magda Mansfield
Reason for Consultation: LENI with ckd
Medical History
-
Chief Complaint: Fever, hypoxia
History of Present Illness:
83-year-old male with PMH of CKD, stage 3, who maintains a baseline creatinine of 1.2-1.3. He also has a history of paroxysmal atrial fibrillation, is chronically anticoagulated and is maintained on carvedilol for rate control as well as amiodarone.
He does have a history of diabetes for which he is managed on glimepiride and insulin. He has a history of chronic ulcerative colitis, which has been controlled on his Imuran therapy, who underwent left AKA for osteo in 06/2023 lives at [facility]
Lillian who was here in September for right wrist drop and obast LENI improved cr post zaragoza. Now presented on 11/13 for fever and hypoxia sat 88. Found to have septic shock requiring pressors. Maintained on abx for pNA. He also noted CLI of right leg for
which he underwent angiogram and Intravascular lithotripsy , angioplasty. he also has excisional debridement of wound with vac placement on 11/19. He also noted to have diarrhea with h/o chr loose BMs. On admit his cr was baseline 1-1.3, since 2days
cr increasing upto 2 today hence nephrology consulted. He notices siginificant wt gain but no sob. No abd pain, or n/v.
Past Medical History
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 CABG, HLD, GERD, HX GI bleed, DM2, chronic LBBB, subdural hematoma after
mechanical fall, tiny old lacunar infarcts again noted in the right cindy and right Ginger/external capsule on ct head , chronic pain syndrome secondary to spinal stenosis on chronic opiate patch, anxiety, ulcerative colitis, chronic ambulatory
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
Past Surgical History: Other (Left AKA secondary to diabetic osteo Jun 2023 Medtronic pacemaker 04/16/2023 tachybradycardia syndrome CABG x 4 PTCA with Stent x 2 DCCV T&A L EDILBERTO)
Social History
Tobacco: Non-Smoker
Alcohol: Occasional
Personal:
Living: [facility]itentiary
Employment: Retired
Family History
no ckd
Family History: Not Pertinent
Allergies / Home Medications
Allergy/AdvReac Type Severity Reaction Status Date / Time
Sulfa (Sulfonamide Allergy Hives Verified 09/14/23 13:25
Antibiotics)
sulfasalazine Allergy mother Verified 09/14/23 13:25
states
hives
�Medication �Instructions �Recorded �Confirmed �Type
atorvastatin 80 mg tablet 80 mg PO DAILY@2030 High 03/30/23 11/14/23 History
Cholesterol
pantoprazole 40 mg tablet,delayed 40 mg PO DAILY Gastrointestinal 03/30/23 11/14/23 History
release Issue
folic acid-vit B6-vit B12 2.5 1 tab PO DAILY Supplement 04/16/23 11/14/23 History
mg-25 mg-2 mg tablet (Folbic)
carvedilol 3.125 mg tablet 3.125 mg PO BID #60 tabs 04/17/23 11/14/23 Rx
amiodarone 200 mg tablet 200 mg PO DAILY Arrhythmia 05/04/23 11/14/23 History
acetaminophen 325 mg tablet 650 mg PO Q4H PRN mild 06/22/23 11/14/23 History
pain/fever>100.4
bisacodyl 10 mg rectal suppository 10 mg [place] DAILY PRN no BM or 06/22/23 11/14/23 History
MOM/lactulose ineffective
fluticasone propionate 50 1 spray intranasal QPM Allergies 06/22/23 11/14/23 History
mcg/actuation nasal
spray,suspension
insulin glargine 100 unit/mL 15 unit SC DAILY@2029 Diabetes 06/22/23 11/14/23 History
subcutaneous solution (Lantus
U-100 Insulin)
insulin lispro 100 unit/mL 0 - 12 sliding scale dose SC 06/22/23 11/14/23 History
subcutaneous pen (Humalog KwikPen TID@0730,1230,1730 Diabetes
(U-100) Insulin)
lactulose 20 gram/30 mL oral 20 g PO HS PRN Constipation 06/22/23 11/14/23 History
solution
mirtazapine 30 mg tablet 15 mg PO DAILY@2029 Mental 06/22/23 11/14/23 History
Health/Anxiety
multivitamin 1 tab PO DAILY Supplement 06/22/23 11/14/23 History
naloxone 4 mg/actuation nasal 4 mg intranasal Q2M PRN 06/22/23 11/14/23 History
spray (Narcan) constricted pupils,loss of
consc,slow breathing
pregabalin 75 mg capsule (Lyrica) 75 mg PO TID Pain 06/22/23 11/14/23 History
azathioprine 75 mg tablet 75 mg PO DAILY ulcerative colitis 09/14/23 11/14/23 History
apixaban 2.5 mg tablet (Eliquis) 2.5 mg PO BID #60 tabs 09/23/23 11/14/23 Rx
fentanyl 25 mcg/hr transdermal 1 patch transdermal Q72H Pain #1 ea 09/23/23 11/14/23 Rx
patch
tamsulosin 0.4 mg capsule 0.4 mg PO DAILY 30 days #30 caps 09/23/23 11/14/23 Rx
bumetanide 0.5 mg tablet 0.5 mg PO Q48H Fluid 11/14/23 11/14/23 History
Retention/Swelling
guaifenesin 100 mg/5 mL oral 200 mg PO Q6H Cough 11/14/23 11/14/23 History
liquid (Tussin)
ipratropium 0.5 mg-albuterol 3 mg 3 ml inhalation R Q6 11/14/23 11/14/23 History
(2.5 mg base)/3 mL nebulization Lung/Breathing Issues
soln
Review of Systems
-
All complete 12 point ROS have been inquired and found negative other than stated in HPI
Physical Exam
Vital Signs
Vital Signs
Temp Pulse Resp BP Pulse Ox
98.6 F 62 16 127/68 96
11/22/23 08:26 11/22/23 11:46 11/22/23 11:46 11/22/23 08:26 11/22/23 11:46
Lab Results
WBC 3.8 10^3/uL (4.8-10.8) L 11/22/23 07:53
RBC 2.92 10^6/uL (4.70-6.10) L 11/22/23 07:53
Hgb 8.6 g/dL (13.0-18.0) L 11/22/23 07:53
Hct 25.2 % (39.0-52.0) L 11/22/23 07:53
Plt Count 74 10^3/uL (130-400) L 11/22/23 07:53
Sodium 136 mmol/L (135-145) 11/22/23 07:53
Potassium 3.9 mmol/L (3.5-5.1) 11/22/23 07:53
Chloride 106 mmol/L (98-107) 11/22/23 07:53
Carbon Dioxide 19 mmol/L (22-30) L 11/22/23 07:53
BUN 47 mg/dl (9-20) H 11/22/23 07:53
Creatinine 2.0 mg/dL (0.7-1.3) H 11/22/23 07:53
eGFR 32.51 11/22/23 07:53
Glucose 204 mg/dl (70-99) H 11/22/23 07:53
Calcium 8.4 mg/dl (8.4-10.2) 11/22/23 07:53
Eef-Q-Gvhupsnlgqz Pept 6480 pg/ml 11/15/23 05:24
Albumin 2.6 g/dl (3.5-5.0) L 11/22/23 07:53
CXR: 11/17
IMPRESSION:
Progressed mild left lower lobe atelectasis versus scarring.
Mild cardiomegaly. Stable
11/17:
CT abd with angio
IMPRESSION:
1. Aortic advanced atherosclerotic changes without aneurysmal dilation or flow limiting stenosis.
2. Approximately 50% narrowing right common iliac artery secondary to calcific plaque. Mild right external iliac stenosis secondary to calcific plaque. Multifocal moderate to severe stenoses of right superficial femoral and popliteal arteries.
Right-sided runoff via posterior tibial.
3. Very small bilateral pleural effusions with adjacent atelectasis.
4. Cholelithiasis.
5. Resolution of previously seen bilateral hydronephrosis. Atrophic changes of bilateral kidneys. Bilateral renal artery stenoses.
6. Urinary bladder decompressed with Zaragoza catheter in position.
7. Mild concentric wall thickening of sigmoid colon and rectum consistent with some form of colitis. No bowel obstruction.
8. Diffuse edematous changes. No lower extremity rim-enhancing fluid collection to suggest abscess identified.
Physical Exam
General: Awake, Alert, Oriented, AOx3, No Distress and Nontoxic
HEENT: EOMI, Anicteric, Neck Supple and No JVD
Respiratory: Clear
Cardiac: S1/S2 and Regular Rate/Rhythm
Breast: Deferred by me
Abdomen: Soft, Nontender and Nondistended
Genito-urinary: Clear Urine (zaragoza bag)
Musculoskeletal: Edema (3+ rt le edema)
Skin: No Rash, Warm and Dry
Neuro: Nonfocal/Grossly Intact
Psych: Mood/afflect pleasant, Insight/judgement good and Appropriate
Data Reviewed
-
Radiology: Report Reviewed by me and Discussed with Patient
Labs: Labs Reviewed by me and Discussed with Patient
Assessment/Plan
-
Assessment:
Septic Shock from Pneumonic process
CLI-PVD s/p Diagnostic arteriogram, intravascular lithotripsy, drug coated balloon angioplasty, wound debridement and vacuum assisted closure on 11/19
Diarrhea
LENI on CKD III-baseline cr 1.2-1.3
Paroxysmal A-fib
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
CAD/ND/CABG 2009
Chronic LBBB
DM-II
Chronic HFpEF
Spinal Stenosis
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
Chronic right lower extremity lymphedema
Hx CVA per CT head
Hx subdural hematoma after mechanical fall
Hx orthostatic hypotension/HTN
Anemia of chronic disease
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
phantom leg pain
HLD
Chronic pain syndrome secondary to spinal stenosis on chronic opiate patch
GERD/Hx GI bleed
Hx ulcerative colitis- azathioprine
Anxiety
Chronic ambulatory dysfunction with chronic foot and ankle deformities
Hypoalbuminemia
Plan:
A/w septic shock with PNA
CLI of right leg s/p angiogram 11/19
LENI-mainly started after 11/19 suspect likely SAMREEN(11/17 and 11/19), could also be prerenal from diarrhea and hypotension 11/19
check UA, low fena, keep zaragoza with h/o obst uropathy
barely non oliguric, ok for gentle IVF
but his wt significantly increased with holding diuresis, check bnp
may need diuresis soon, last bumex dose on 11/19
monitor met acidosis with bicarb IVF
BPs seem relatively stable now
pancytopenia-chronic was seen by heme before
avoid nephrotoxins
d/w pt
[2023-11-22 15:23] LABS: Urine Sodium 22 mmol/L (30-90)
[2023-11-22 15:32] VITALS: BP 104/60
[2023-11-22] MEDS: STERILE WATER FOR INJECTION 10 ML IV (16:25)
[2023-11-22] MEDS: ROCEPHIN 1000 MG IV (16:25)
[2023-11-22] MEDS: SODIUM BICARBONATE 550 MEQ IV (16:26)
[2023-11-22 16:50] LABS: Glucose - Point of Care 237 mg/dl (70-99)
[2023-11-22] MEDS: LIPITOR 80 MG PO (17:32)
[2023-11-22 18:26] LABS: Urine Albumin 1+ (Neg - Trace); Urine Bilirubin Negative (Negative); Urine Character Very Cloudy (Clear); Urine Color Yellow; Urine Glucose Negative (Negative); Urine Ketone Trace (Negative); Urine Leukocyte 2+ (Negative); Urine Nitrite Negative (Negative); Urine Occult Blood 1+ (Negative); Urine Specific Gravity 1.015 (<1.030); Urine Urobilinogen Negative (Neg - 1+)
[2023-11-22 18:32] LABS: Urine Red Blood Cell 0-2 /HPF (0-2); Urine White Cell 70-80 /HPF (0-5)
[2023-11-22 18:33] LABS: Urine Yeast Many (Negative)
[2023-11-22 18:35] LABS: NT-proBNP 10200 pg/ml
[2023-11-22 21:49] LABS: Glucose - Point of Care 254 mg/dl (70-99)
[2023-11-22] MEDS: LANTUS 0.149999999999999994 UNITS SC (21:52)
[2023-11-22 23:20] VITALS: BP 116/67
[2023-11-23] MEDS: FLAGYL 500 MG 100 IV ×3 (05:46→21:23)
[2023-11-23 06:00] VITALS: BMI 32.5
[2023-11-23] MEDS: DUONEB 3 ML INH ×4 (06:13→20:27)
--- NOTE | 2023-11-23 06:34 | PTCARENOTE ---
During am rounds, patient noted to have frankie red blood in zaragoza bag. When lifted sheet to assess zaragoza, extra large clear/ yellow mucous plug noted on bed between legs and then frankie red blood noted coming from around tip of penis. Patient cleaned
up with assist of 2 other RNS. Reported to housecalls nurse PULL TAB DEALER. Per PULL TAB DEALER waiting for labs this am. Eliquis placed on hold and urology consult placed by HOTEL SUPERINTENDENT.
--- NOTE | 2023-11-23 06:36 | W.PN.UPDATE ---
Addendum entered and electronically signed by FIDEL Caballero 11/23/23 06:52:
TT sent to urology service about possible need for 3 way for CBI.
Original Note:
Update Note
Progress Note Update
Patient noted with dark red blood in zaragoza bag. Held Eliquis. Unsure if this is trauma related. Placed urology consult for three way since this is chronic zaragoza and unsure if he has BPH causing difficulty with insertion. Awaiting morning HH results.
[2023-11-23 07:35] VITALS: BP 130/67
--- NOTE | 2023-11-23 08:26 | PTCARENOTE ---
chronic zaragoza removed three way zaragoza placed without difficulty. draining bloody no clots noted. cbi started as ordered.
[2023-11-23 08:55] LABS: Glucose - Point of Care 140 mg/dl (70-99)
--- NOTE | 2023-11-23 09:19 | W.PN.URO.CBU ---
Today's Communication / Plan
-
Keep Cespedes
Continue CBI
Assessment / Plan
-
Urine retention
Gross hematuria on Eliquis: currently on hold
Diagnosis
-
Date of Service: November 23, 2023
-
Patient Diagnosis:
Urine retention: catheter dependent as of 09/19/23 admission when he was found to have obstructive uropathy
Gross hematuria on anticoagulation
Subjective
-
Comfortable
No catheter bother
Objective
-
Vital Signs
Temp Pulse Resp BP Pulse Ox
97.6 F 61 18 130/67 97
11/23/23 07:35 11/23/23 07:35 11/23/23 07:35 11/23/23 07:35 11/23/23 07:35
Intake and Output
11/22/23 11/23/23 11/24/23
06:59 06:59 06:59
Intake Total 1450 / 1450 1220 / 1220
Output Total 350 / 350 550 / 550
Balance 1100 / 1100 670 / 670
Intake:
Oral fluids 750 / 750 1020 / 1020
IV fluids (Total) 600 / 600 100 / 100
IV piggybacks 100 / 100 100 / 100
Output:
Urine, Cespedes 350 / 350 550 / 550
Review of Systems
-
Constitutional: Fatigue
Respiratory: No Symptoms
Cardiac: No Symptoms
Abdomen/GI: No Symptoms
: Bleeding
Physical Exam
-
General - no acute distress
Abdomen - soft, non-tender, no CVAT
Genitalia - normal with chronic edema. No erythema. Cespedes draining clear with moderate drip CBI
Counseling
-
Continue to hold Eliquis another 24 hours
--- NOTE | 2023-11-23 09:24 | W.PN.URO.CBU ---
Today's Communication / Plan
-
Continue CBI
Keep Cespedes
Assessment / Plan
-
Urine retention
Gross hematuria on Eliquis: currently on hold
Diagnosis
-
Date of Service: November 23, 2023
-
Patient Diagnosis:
Post Op Day:
Patient Diagnosis:
Urine retention: catheter dependent as of 09/19/23 admission when he was found to have obstructive uropathy
Gross hematuria on anticoagulation
Objective
-
Vital Signs
Temp Pulse Resp BP Pulse Ox
97.6 F 61 18 130/67 97
11/23/23 07:35 11/23/23 07:35 11/23/23 07:35 11/23/23 07:35 11/23/23 07:35
Intake and Output
11/22/23 11/23/23 11/24/23
06:59 06:59 06:59
Intake Total 1450 / 1450 1220 / 1220
Output Total 350 / 350 550 / 550
Balance 1100 / 1100 670 / 670
Intake:
Oral fluids 750 / 750 1020 / 1020
IV fluids (Total) 600 / 600 100 / 100
IV piggybacks 100 / 100 100 / 100
Output:
Urine, Cespedes 350 / 350 550 / 550
Physical Exam
-
General - well developed, well nourished, no acute distress
Chest - clear bilaterally
Abdomen - soft, non-tender, positive bowel sounds, no CVAT, no incisional pain or distention
Genitalia - normal
Rectal - normal
Skin - warm & dry with no rash
Neuro - AOx3, no motor deficits
Extremities - no clubbing, no cyanosis, no edema
Incision - clean, dry
Dressing - clean, dry, intact
Counseling
-
Advise holding Eliquis another 24 hours
[2023-11-23 09:39] LABS: Hematocrit 26.5 % (39.0-52.0); Hemoglobin 8.9 g/dL (13.0-18.0); Mean Corp Hgb Conc. 33.6 g/dL (33.0-37.0); Mean Corpuscular Hgb 29.8 pg (27.0-31.0); Mean Corpuscular Volume 88.6 fL (80.0-94.0); Platelet Count 81 10^3/uL (130-400); Red Blood Cell Count 2.99 10^6/uL (4.70-6.10); Red Cell Dist. Width 22.8 % (11.5-14.5); White Blood Cell Count 4.5 10^3/uL (4.8-10.8)
[2023-11-23] MEDS: NOVOLOG FLEXPEN-MODERATE RESISTANCE SC (10:04)
--- NOTE | 2023-11-23 10:08 | W.PN.HOSP.TC ---
Today's Communication/Plan
-
see A/P
Assessment / Plan
Assessment / Plan
HPI: Patient is a 83y M with PMH significant for ASCVD, AFib and DM-II who presented to ED from local [place] for evaluation of fever and hypoxemia.
A/P:
# Septic Shock 2/2 CAP
Patient has chronic Cespedes catheter but no pyuria.
His chest x-ray is concern for right upper lobe abnormality- treated as possible pneumonia
COVID/flu negative. MRSA screen negative.
Off vasopressors.
Speech recc IDDSI [id number]
Continue broad-spectrum antibiotics ceftriaxone, Flagyl - total 10 days
Incentive [place], Acapella
# PAD
s/p Diagnostic arteriogram, intravascular lithotripsy, drug coated balloon angioplasty, wound debridement and vacuum assisted closure
Continue wound VAC changes, can be on [facility] schedule going forward, wound care consulted. If wound VAC begins to alarm, can be removed and replaced with wet-to-dry dressing, ABD, and Dong wrap with mild compression
Continue aspirin
f/u vascular outpatient
# LENI on CKD III
Suspect contrast nephropathy s/p angiogram
SCr 2.0 today from baseline 1.0
s/p gentle hydration
renal US unrevealing
diuretic on hold
Renal on board
# Gross hematuria on Eliquis
Eliquis currently on hold
Continue CBI
Keep Cespedes
Uro on board
# Diarrhea, most likely 2/2 to abx, improving
colitis on imaging
stool cultures ordered but no samples taken
Cont Ceftriaxone and Flagyl as stated above
# ASCVD
Continue current CV med regimen.
Monitor for any chest pain or other symptoms.
# Paroxysmal Atrial Fibrillation, stable.
Heart rates controlled on current medications Coreg and amiodarone
Continue amiodarone, carvedilol with holding parameters for BP.
Continue Eliquis for stroke risk reduction.
# DM-II, Stable.
A1C 8.1 %
Currently on Lantus 15 units HS
Add Aspart 5 units AC
Cover with ISS
# Acute on Chronic HFpEF, now resolved
Initially on Lasix but due to LENI, now held
Follow I/Os, daily weights, etc and resume diuretics when appropriate.
# Ulcerative Colitis, Stable.
No recent issues or complaints.
Continue azathioprine dosing and follow for any changes.
# Spinal Stenosis
# Chronic Pain Syndrome
Stable. No new or increased symptoms.
Continue current pain regimen including Fentanyl patch, Lyrica, etc.
PT / OT evaluations when able
# Chronic Indwelling Cespedes
This was placed during prior admission here in September of this year.
Plan was for eventual outpatient cysto and voiding trial - it is not clear whether this happened.
Maintain Cespedes for now.
Follow-up with Urology as an outpatient.
Could consider TOV here prior to discharge.
DVT Prophylaxis: Eliquis on hold
Code Status: Full
DW at bedside
Total time spent on today's encounter was 52 minutes which included time spent in counseling the patient/family regarding diagnosis and treatment plan as listed above, goals of care, and symptom management. Case was discussed with nursing staff .
All labs and imaging personally reviewed by me. Remainder the time spent in detailed review of previous records, lab data, imaging, and other medical provider documentation.
Anticipated Discharge: > 48 hours
Subjective/Interval History
-
Date of Service: November 23, 2023
Objective Data
-
Labs:
Laboratory Results
11/23/23
08:34
WBC 4.5 L
Hgb 8.9 L
Hct 26.5 L
Plt Count 81 L
Sodium Pending
Potassium Pending
Chloride Pending
Carbon Dioxide Pending
BUN Pending
Creatinine Pending
Glucose Pending
Calcium Pending
Total Bilirubin Pending
AST Pending
ALT Pending
Alkaline Phosphatase Pending
Vital Signs:
Vital Signs
Temp Pulse Resp BP Pulse Ox
36.4 C 61 18 130/67 97
11/23/23 07:35 11/23/23 07:35 11/23/23 07:35 11/23/23 07:35 11/23/23 07:35
I&O
11/22/23 11/23/23 11/24/23
06:59 06:59 06:59
Intake Total 1450 / 1450 1220 / 1220
Output Total 350 / 350 550 / 550 50 / 50
Balance 1100 / 1100 670 / 670 -50 / -50
Review of Systems
-
History Source: Patient
All other systems: Not reviewed unless documented
Physical Exam
-
General: Well Developed, Comfortable and Appears Chronically Ill
Respiratory: Clear to Auscultation and Non Labored Respirations; Negative Accessory Resp Muscle Use
Cardiac: Regular Rhythm and S1/S2
GI: Soft and Nontender
Genito-urinary: Cespedes and Continuous Bladder Irrigation
Musculoskeletal: Other (Left AKA)
Skin: Other (Right foot with wound VAC )
Neuro: Awake and Alert
Psych: Calm and Intact Judgement/Insight (somewhat)
Data Reviewed
-
Ultrasound: Report Reviewed by me, Discussed with Patient and Discussed with Family
Labs: Labs Reviewed by me
[2023-11-23 10:13] LABS: ALT (SGPT) 35 U/L (0-50); AST (SGOT) 42 U/L (17-59); Albumin 2.7 g/dl (3.5-5.0); Alkaline Phosphatase 75 U/L (38-126); Blood Urea Nitrogen 53 mg/dl (9-20); Calcium 8.2 mg/dl (8.4-10.2); Carbon Dioxide 20 mmol/L (22-30); Chloride 106 mmol/L (98-107); Estimated Creatinine Clearance 31 ml/min; Glucose 134 mg/dl (70-99); Potassium 3.8 mmol/L (3.5-5.1); Sodium 135 mmol/L (135-145); Total Bilirubin 0.8 mg/dl (0.2-1.3); eGFR 32.51
[2023-11-23] MEDS: LYRICA 75 MG PO ×3 (10:17→21:23)
[2023-11-23] MEDS: TYLENOL 650 MG PO (10:17)
[2023-11-23] MEDS: PROTONIX 40 MG PO (10:18)
[2023-11-23] MEDS: ASPIR LOW (ENTERIC COATED) 81 MG PO (10:18)
[2023-11-23] MEDS: IMURAN 75 MG PO (10:18)
[2023-11-23] MEDS: COREG 3.125 MG PO ×2 (10:18→20:51)
[2023-11-23] MEDS: PACERONE 200 MG PO (10:18)
[2023-11-23] MEDS: FLOMAX 0.400000000000000022 MG PO (10:18)
[2023-11-23] MEDS: SANTYL OINTMENT TOPICAL (10:19)
--- NOTE | 2023-11-23 11:04 | PTCARENOTE ---
pt aaox3. states no pain . davila room air breath sounds diminished. ex wheezing at times. little traverse. hearing aids in. zaragoza changed to three way with cbi now draining pink with sore blood clots. l aka. right leg wound with wound vac in place. renal
u/s/ done.
--- NOTE | 2023-11-23 12:21 | WOUNDNOTE ---
SOSA RN NOTE: Changed wound vac unit on R lateral leg with black foam to 125mmgh per vascular. Discontinued Santyl, no longer has slough or eschar post I&D of wound. Proximal area of wound appears to have a thin layer of fibrin covering possible
tendon. Padded placed under vac tubing with abd pad, talia and light arturo wrap to secure. Patient turned with assist, on air overlay, palm check done with adequate inflation. Sacrum with masd, scrotal skin tear healing. R heel is intact and medial
ankle no longer red. Foot very dry and scaly skin, applied A&D ointment, will order mineral oil. Prevalon boot placed back on, patient repositioned to L semi side lying position. Entered vac unit #[id number] on Clerk. MACY Arcos made
aware of need for wound vac at [facility] upon discharge, small foam needed. Nurse Asad updated on care and will follow as needed.
[2023-11-23 12:25] LABS: Glucose - Point of Care 237 mg/dl (70-99)
--- NOTE | 2023-11-23 12:34 | PTCARENOTE ---
prn irrigation of 3 way zaragoza for mod amount of blood clots. cbi running light pink with clots.
[2023-11-23] MEDS: NOVOLOG FLEXPEN 5 UNITS SC ×2 (12:41→17:26)
[2023-11-23] MEDS: NOVOLOG FLEXPEN-MODERATE RESISTANCE 3 UNITS SC ×2 (12:41→17:27)
--- NOTE | 2023-11-23 15:06 | CM ---
SEnt updated clinical and wound vac settings and wound care instructions in all scripts to [facility]. UPdated verbally admissions at [facility].
--- NOTE | 2023-11-23 15:15 | W.PN.NEPH.PH ---
Today's Communication / Plan
-
observe on CBI
follow bmp
holding diuretics
Assessment/Plan
-
Assessment:
Septic Shock from Pneumonic process
CLI-PVD s/p Diagnostic arteriogram, intravascular lithotripsy, drug coated balloon angioplasty, wound debridement and vacuum assisted closure on 11/19
Diarrhea
LENI on CKD III-baseline cr 1.2-1.3
Paroxysmal A-fib
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
CAD/CA/CABG 2009
Chronic LBBB
DM-II
Chronic HFpEF
Spinal Stenosis
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
Chronic right lower extremity lymphedema
Hx CVA per CT head
Hx subdural hematoma after mechanical fall
Hx orthostatic hypotension/HTN
Anemia of chronic disease
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
phantom leg pain
HLD
Chronic pain syndrome secondary to spinal stenosis on chronic opiate patch
GERD/Hx GI bleed
Hx ulcerative colitis- azathioprine
Anxiety
Chronic ambulatory dysfunction with chronic foot and ankle deformities
Hypoalbuminemia
Plan:
A/w septic shock with PNA
CLI of right leg s/p angiogram 11/19
LENI-mainly started after 11/19 suspect likely SAMREEN(11/17 and 11/19), could also be prerenal from diarrhea and hypotension 11/19
creatinine unchanged at 2
now on CBI with macrohematuria: placed 11/22
checked UA, low fena, keep zaragoza with h/o obstructive uropathy
wt significantly increased with holding diuresis
may need diuresis soon, last bumex dose on 11/19
BPs seem relatively stable now
pancytopenia-chronic was seen by heme before
avoid nephrotoxins
d/w pt
-
-
Date of Service: November 23, 2023
CC / HPI / ROS
-
Chief Complaint:
LENI
History of Present Illness:
creatinine unchanged at 2
hemodynamically stable
metabolic acidosis persists
Review of Systems:
CBI with macrohematuria
zaragoza
right leg wound pump
Labs
-
Labs:
WBC 4.5 10^3/uL (4.8-10.8) L 11/23/23 08:34
RBC 2.99 10^6/uL (4.70-6.10) L 11/23/23 08:34
Hgb 8.9 g/dL (13.0-18.0) L 11/23/23 08:34
Hct 26.5 % (39.0-52.0) L 11/23/23 08:34
Plt Count 81 10^3/uL (130-400) L 11/23/23 08:34
Sodium 135 mmol/L (135-145) 11/23/23 08:34
Potassium 3.8 mmol/L (3.5-5.1) 11/23/23 08:34
Chloride 106 mmol/L (98-107) 11/23/23 08:34
Carbon Dioxide 20 mmol/L (22-30) L 11/23/23 08:34
BUN 53 mg/dl (9-20) H 11/23/23 08:34
Creatinine 2.0 mg/dL (0.7-1.3) H 11/23/23 08:34
eGFR 32.51 11/23/23 08:34
Glucose 134 mg/dl (70-99) H 11/23/23 08:34
Calcium 8.2 mg/dl (8.4-10.2) L 11/23/23 08:34
Uhd-A-Ojwvyyptmvb Pept 73355 pg/ml 11/22/23 07:53
Albumin 2.7 g/dl (3.5-5.0) L 11/23/23 08:34
Physical Exam
-
Vital Signs:
Vital Signs
Temp Pulse Resp BP Pulse Ox
97.6 F 70 20 136/67 98
11/23/23 07:35 11/23/23 11:20 11/23/23 11:20 11/23/23 10:18 11/23/23 11:20
Cardiovascular:: Regular rate and rhythm
Respiratory:: Bilateral: Coarse
Lung Excursion:: Normal
Abdomen:: Nontender and Soft
Bowel Sounds:: Normal
Extremity Edema:: +2: Right: (wound vac) and None: Left: (AKA)
Zaragoza Catheter: Yes
--- NOTE | 2023-11-23 15:30 | WOUNDNOTE ---
WON RN NOTE: Current vac machine not on list with [employer] to assign to patient. Switched vac machine with serial # [id number] and assigned to patient in [employer] per recommendation by [employer] rep. Other vac placed in soiled utility rm
on 4W for pickup.
[2023-11-23 15:45] VITALS: BP 113/54
[2023-11-23 15:55] VITALS: BP 113/54; PULSE 60; O2SAT 95
[2023-11-23] MEDS: ROCEPHIN 1000 MG IV (16:03)
[2023-11-23] MEDS: STERILE WATER FOR INJECTION 10 ML IV (16:04)
--- NOTE | 2023-11-23 16:08 | PTCARENOTE ---
pt continues to have blood clots around zaragoza cath. cbi now w/o. running lite pink with small amt clots.
[2023-11-23 17:20] LABS: Glucose - Point of Care 205 mg/dl (70-99)
[2023-11-23] MEDS: LIPITOR 80 MG PO (17:26)
[2023-11-23 21:04] LABS: Glucose - Point of Care 144 mg/dl (70-99)
[2023-11-23] MEDS: LANTUS 0.149999999999999994 UNITS SC (21:24)
[2023-11-23 23:37] VITALS: BP 126/63
[2023-11-24] MEDS: FLAGYL 500 MG 100 IV ×3 (05:19→21:54)
[2023-11-24 05:38] VITALS: BMI 32.2
[2023-11-24 06:36] LABS: Hematocrit 26.2 % (39.0-52.0); Hemoglobin 8.6 g/dL (13.0-18.0); Mean Corp Hgb Conc. 32.8 g/dL (33.0-37.0); Mean Corpuscular Hgb 29.1 pg (27.0-31.0); Mean Corpuscular Volume 88.5 fL (80.0-94.0); Platelet Count 78 10^3/uL (130-400); Red Blood Cell Count 2.96 10^6/uL (4.70-6.10); Red Cell Dist. Width 22.6 % (11.5-14.5); White Blood Cell Count 3.8 10^3/uL (4.8-10.8)
[2023-11-24 06:44] LABS: Blood Urea Nitrogen 54 mg/dl (9-20); Calcium 8.3 mg/dl (8.4-10.2); Carbon Dioxide 21 mmol/L (22-30); Chloride 108 mmol/L (98-107); Estimated Creatinine Clearance 34 ml/min; Glucose 142 mg/dl (70-99); Magnesium 1.8 mg/dl (1.6-2.3); Sodium 136 mmol/L (135-145); eGFR 36.89
[2023-11-24] MEDS: DUONEB 3 ML INH ×4 (07:44→19:25)
[2023-11-24 08:03] VITALS: BP 123/52
[2023-11-24 08:28] LABS: Glucose - Point of Care 158 mg/dl (70-99)
[2023-11-24] MEDS: NOVOLOG FLEXPEN-MODERATE RESISTANCE 1 UNITS SC ×2 (08:46→18:29)
[2023-11-24] MEDS: NOVOLOG FLEXPEN 5 UNITS SC ×3 (08:47→18:30)
--- NOTE | 2023-11-24 08:54 | W.PN.HOSP.TC ---
Today's Communication/Plan
-
see A/P
Assessment / Plan
Assessment / Plan
HPI: Patient is a 83y M with PMH significant for ASCVD, AFib and DM-II who presented to ED from local [place] for evaluation of fever and hypoxemia.
A/P:
# Septic Shock 2/2 CAP
Patient has chronic Cespedes catheter but no pyuria.
His chest x-ray is concern for right upper lobe abnormality- treated as possible pneumonia
COVID/flu negative. MRSA screen negative.
Off vasopressors.
Speech recc IDDSI 6
Continue broad-spectrum antibiotics ceftriaxone/Flagyl - total 10 days
Incentive Saeed, Acapella
# PAD
s/p Diagnostic arteriogram, intravascular lithotripsy, drug coated balloon angioplasty, wound debridement and vacuum assisted closure
Continue wound VAC changes, can be on [facility] schedule going forward. If wound VAC begins to alarm, can be removed and replaced with wet-to-dry dressing, ABD, and Dong wrap with mild compression
Continue aspirin
f/u vascular outpatient
# LENI on CKD III, Suspect contrast nephropathy s/p angiogram
SCr 1.8 today from 2.0 (peak); baseline 1.0
s/p gentle hydration
renal US unrevealing
diuretic on hold
Renal on board
# Gross hematuria on Eliquis
Eliquis currently on hold
Continue CBI
Keep Cespedes
Uro on board
# Diarrhea, most likely 2/2 abx, improving
colitis on imaging
stool cultures ordered but no samples taken
Cont Ceftriaxone and Flagyl as stated above
# ASCVD
Continue current CV med regimen.
Monitor for any chest pain or other symptoms.
# Paroxysmal Atrial Fibrillation, stable.
Heart rates controlled on current medications Coreg and amiodarone
Continue amiodarone, carvedilol with holding parameters for BP.
Continue Eliquis for stroke risk reduction.
# DM-II, Stable.
A1C 8.1 %
Cont [employer] Lantus 15 units HS
Added Aspart 5 units AC
Cover with ISS
# Acute on Chronic HFpEF, now resolved
Initially on Lasix but due to LENI, now held
Follow I/Os, daily weights, etc and resume diuretics when appropriate.
# Ulcerative Colitis, Stable.
No recent issues or complaints.
Continue azathioprine dosing and follow for any changes.
# Spinal Stenosis
# Chronic Pain Syndrome
Stable. No new or increased symptoms.
Continue current pain regimen including Fentanyl patch, Lyrica, etc.
PT / OT evaluations when able
# Chronic Indwelling Cespedes
This was placed during prior admission here in September of this year.
Plan was for eventual outpatient cysto and voiding trial - it is not clear whether this happened.
Maintain Cespedes for now.
Follow-up with Urology as an outpatient.
Could consider TOV here prior to discharge.
DVT Prophylaxis: Eliquis on hold
Code Status: Full
DW RN
Anticipated Discharge: > 48 hours
Subjective/Interval History
-
Date of Service: November 24, 2023
Objective Data
-
Labs:
Laboratory Results
11/24/23
05:29
WBC 3.8 L
Hgb 8.6 L
Hct 26.2 L
Plt Count 78 L
Sodium 136
Potassium 4.0
Chloride 108 H
Carbon Dioxide 21 L
BUN 54 H
Creatinine 1.8 H
Glucose 142 H
Calcium 8.3 L
Vital Signs:
Vital Signs
Temp Pulse Resp BP Pulse Ox
36.5 C 60 16 126/63 92
11/23/23 23:37 11/24/23 07:45 11/24/23 07:45 11/23/23 23:37 11/24/23 07:45
I&O
11/23/23 11/24/23 11/25/23
06:59 06:59 06:59
Intake Total 1220 / 1220 680 / 680
Output Total 550 / 550 2650 / 2650
Balance 670 / 670 -1970 / -1969
Review of Systems
-
History Source: Patient
All other systems: Not reviewed unless documented
Physical Exam
-
General: Well Developed, Comfortable, Conversant and Appears Chronically Ill
Respiratory: Clear to Auscultation and Non Labored Respirations; Negative Accessory Resp Muscle Use
Cardiac: Regular Rhythm and S1/S2
GI: Soft and Nontender
Genito-urinary: Cespedes and Continuous Bladder Irrigation
Musculoskeletal: Other (Left AKA)
Skin: Other (Right foot with wound VAC )
Neuro: Awake and Alert
Psych: Calm and Intact Judgement/Insight (somewhat)
Data Reviewed
-
Ultrasound: Report Reviewed by me, Discussed with Patient and Discussed with Family
Labs: Labs Reviewed by me
[2023-11-24] MEDS: PACERONE 200 MG PO (08:57)
[2023-11-24] MEDS: FLOMAX 0.400000000000000022 MG PO (08:58)
[2023-11-24] MEDS: LYRICA 75 MG PO ×3 (08:58→21:54)
[2023-11-24] MEDS: IMURAN 75 MG PO (08:59)
[2023-11-24] MEDS: PROTONIX 40 MG PO (08:59)
[2023-11-24] MEDS: ASPIR LOW (ENTERIC COATED) 81 MG PO (08:59)
[2023-11-24] MEDS: HYDROPHOR 1 APPLIC TOPICAL (09:01)
[2023-11-24] MEDS: COREG 3.125 MG PO ×2 (09:05→21:53)
[2023-11-24 12:24] LABS: Glucose - Point of Care 238 mg/dl (70-99)
[2023-11-24] MEDS: NOVOLOG FLEXPEN-MODERATE RESISTANCE 3 UNITS SC (13:41)
[2023-11-24] MEDS: FLUSH (NSS) 1 FLUSH IV (13:45)
--- NOTE | 2023-11-24 14:53 | CM ---
faxed disharge plan information for wound care to Makayla at [facility]. Faxed to [phone].
Makayla asked for size of wound . Madeleine from [facility] measurements: 10cm by 20 cm by 0.5 cm.
CanDiag is provider for Wound vacs at [facility].
NO discharge today, possibly tomorrow if CBI can be removed.
Patient resident of [facility] and has Medicare. NO precert needed.
Report to --[phone]
fax [phone]
--- NOTE | 2023-11-24 15:46 | W.PN.NEPH.PH ---
Today's Communication / Plan
-
Follow BMP
Still holding diuretic
Assessment/Plan
-
Assessment:
Septic Shock from Pneumonic process
CLI-PVD s/p Diagnostic arteriogram, intravascular lithotripsy, drug coated balloon angioplasty, wound debridement and vacuum assisted closure on 11/19
Diarrhea
LENI on CKD III-baseline cr 1.2-1.3
Paroxysmal A-fib
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
CAD/SC/CABG 2009
Chronic LBBB
DM-II
Chronic HFpEF
Spinal Stenosis
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
Chronic right lower extremity lymphedema
Hx CVA per CT head
Hx subdural hematoma after mechanical fall
Hx orthostatic hypotension/HTN
Anemia of chronic disease
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
phantom leg pain
HLD
Chronic pain syndrome secondary to spinal stenosis on chronic opiate patch
GERD/Hx GI bleed
Hx ulcerative colitis- azathioprine
Anxiety
Chronic ambulatory dysfunction with chronic foot and ankle deformities
Hypoalbuminemia
Plan:
A/w septic shock with PNA
CLI of right leg s/p angiogram 11/19
LENI-mainly started after 11/19 suspect likely SAMREEN(11/17 and 11/19), could also be prerenal from diarrhea and hypotension 11/19
creatinine improved to 1.8 from 2, with CBI: UOP 1800cc
now on CBI with macrohematuria: placed 11/22
renal u/s without significant findings
checked UA, low fena, keep zaragoza with h/o obstructive uropathy
wt decreasing despite with holding diuresis
BPs seem relatively stable now
pancytopenia-chronic was seen by heme before
avoid nephrotoxins
d/w pt
-
-
Date of Service: November 24, 2023
CC / HPI / ROS
-
Chief Complaint:
LENI
History of Present Illness:
creatinine improved to 1.8
hemodynamically stable
metabolic acidosis persists but improving
Review of Systems:
CBI with macrohematuria now without gross blood
Nonoliguric
zaragoza
right leg wound pump
Labs
-
Labs:
WBC 3.8 10^3/uL (4.8-10.8) L 11/24/23 05:29
RBC 2.96 10^6/uL (4.70-6.10) L 11/24/23 05:29
Hgb 8.6 g/dL (13.0-18.0) L 11/24/23 05:29
Hct 26.2 % (39.0-52.0) L 11/24/23 05:29
Plt Count 78 10^3/uL (130-400) L 11/24/23 05:29
Sodium 136 mmol/L (135-145) 11/24/23 05:29
Potassium 4.0 mmol/L (3.5-5.1) 11/24/23 05:29
Chloride 108 mmol/L (98-107) H 11/24/23 05:29
Carbon Dioxide 21 mmol/L (22-30) L 11/24/23 05:29
BUN 54 mg/dl (9-20) H 11/24/23 05:29
Creatinine 1.8 mg/dL (0.7-1.3) H 11/24/23 05:29
eGFR 36.89 11/24/23 05:29
Glucose 142 mg/dl (70-99) H 11/24/23 05:29
Calcium 8.3 mg/dl (8.4-10.2) L 11/24/23 05:29
Ysx-P-Jeggimlalyp Pept 53405 pg/ml 11/22/23 07:53
Albumin 2.7 g/dl (3.5-5.0) L 11/23/23 08:34
Physical Exam
-
Vital Signs:
Vital Signs
Temp Pulse Resp BP Pulse Ox
97.5 F 61 20 123/52 97
11/24/23 08:03 11/24/23 08:03 11/24/23 08:03 11/24/23 08:03 11/24/23 08:03
Cardiovascular:: Regular rate and rhythm
Respiratory:: Bilateral: Coarse
Lung Excursion:: Normal
Abdomen:: Nontender and Soft
Bowel Sounds:: Normal
Extremity Edema:: +2: Right: (wound vac) and None: Left: (AKA)
Zaragoza Catheter: Yes
[2023-11-24 16:00] VITALS: BP 150/66
[2023-11-24 17:00] LABS: Glucose - Point of Care 174 mg/dl (70-99)
[2023-11-24] MEDS: LIPITOR 80 MG PO (18:36)
[2023-11-24] MEDS: STERILE WATER FOR INJECTION 10 ML IV (18:36)
[2023-11-24] MEDS: DESENEX/MITRAZOL/ZEASORB TOPICAL (18:36)
[2023-11-24] MEDS: ROCEPHIN 1000 MG IV (18:39)
[2023-11-24] MEDS: DESENEX/MITRAZOL/ZEASORB 1 APPLIC TOPICAL (21:58)
[2023-11-24 22:01] LABS: Glucose - Point of Care 269 mg/dl (70-99)
[2023-11-24] MEDS: LANTUS 0.149999999999999994 UNITS SC (22:05)
[2023-11-24 23:36] VITALS: BP 118/53
[2023-11-25] MEDS: FLAGYL 500 MG 100 IV (05:31)
[2023-11-25 06:00] VITALS: BMI 32.7
[2023-11-25] MEDS: DUONEB 3 ML INH ×4 (07:42→19:25)
[2023-11-25 07:45] LABS: Hematocrit 24.9 % (39.0-52.0); Hemoglobin 8.5 g/dL (13.0-18.0); Mean Corp Hgb Conc. 34.1 g/dL (33.0-37.0); Mean Corpuscular Hgb 29.9 pg (27.0-31.0); Mean Corpuscular Volume 87.7 fL (80.0-94.0); Platelet Count 72 10^3/uL (130-400); Red Blood Cell Count 2.84 10^6/uL (4.70-6.10); Red Cell Dist. Width 22.7 % (11.5-14.5); White Blood Cell Count 3.7 10^3/uL (4.8-10.8)
[2023-11-25 08:13] VITALS: BP 120/65
[2023-11-25 08:15] LABS: Blood Urea Nitrogen 49 mg/dl (9-20); Calcium 8.6 mg/dl (8.4-10.2); Carbon Dioxide 21 mmol/L (22-30); Chloride 111 mmol/L (98-107); Estimated Creatinine Clearance 41 ml/min; Glucose 119 mg/dl (70-99); Magnesium 1.9 mg/dl (1.6-2.3); Potassium 3.8 mmol/L (3.5-5.1); Sodium 138 mmol/L (135-145); eGFR 45.91
[2023-11-25] MEDS: PACERONE 200 MG PO (08:18)
[2023-11-25] MEDS: FLOMAX 0.400000000000000022 MG PO (08:18)
[2023-11-25] MEDS: LYRICA 75 MG PO ×3 (08:18→21:00)
[2023-11-25] MEDS: ASPIR LOW (ENTERIC COATED) 81 MG PO (08:19)
[2023-11-25] MEDS: IMURAN 75 MG PO (08:19)
[2023-11-25] MEDS: PROTONIX 40 MG PO (08:19)
--- NOTE | 2023-11-25 08:20 | W.PN.HOSP.TC ---
Today's Communication/Plan
-
see A/P
Assessment / Plan
Assessment / Plan
HPI: Patient is a 83y M with PMH significant for ASCVD, AFib and DM-II who presented to ED from local [place] for evaluation of fever and hypoxemia.
A/P:
# Septic Shock 2/2 CAP
Patient has chronic Cespedes catheter but no pyuria.
His chest x-ray is concern for right upper lobe abnormality- treated as possible pneumonia
COVID/flu negative. MRSA screen negative.
Off vasopressors.
Speech recc IDDSI 6
Continue broad-spectrum antibiotics ceftriaxone/Flagyl - total 10 days
Incentive Saeed, Acapella
# PAD
s/p Diagnostic arteriogram, intravascular lithotripsy, drug coated balloon angioplasty, wound debridement and vacuum assisted closure
Continue wound VAC changes, can be on [facility] schedule going forward. If wound VAC begins to alarm, can be removed and replaced with wet-to-dry dressing, ABD, and Dong wrap with mild compression
Continue aspirin
f/u vascular outpatient
# LENI on CKD III, Suspect contrast nephropathy s/p angiogram
SCr 1.5 today from 2.0 (peak); baseline 1.0
s/p gentle hydration
renal US unrevealing
diuretic on hold
Renal on board
Will CS Card to assess the need of continuing diuretic (I personally favor stopping diuretic or at least dose as needed)
# Gross hematuria on Eliquis
Eliquis currently on hold
s/p CBI
Keep Cespedes
Uro on board
Will CS Card to assess the need of resuming Eliquis (I personally favor stopping Eliquis due to h/o anemia and now gross hematuria this admission)
# Diarrhea, most likely 2/2 abx, improving
colitis on imaging
stool cultures ordered but no samples taken
Cont Ceftriaxone and Flagyl as stated above
# ASCVD
Continue current CV med regimen.
Monitor for any chest pain or other symptoms.
# Paroxysmal Atrial Fibrillation, stable.
Heart rates controlled on current medications Coreg and amiodarone
Continue amiodarone, carvedilol with holding parameters for BP.
Eliquis for stroke risk reduction.
# DM-II, Stable.
A1C 8.1 %
Cont [employer] Lantus 15 units HS
Added Aspart 5 units AC
Cover with ISS
# Acute on Chronic HFpEF, now resolved
Initially on Lasix but due to LENI, now held
Follow I/Os, daily weights, etc and resume diuretics when appropriate.
# Ulcerative Colitis, Stable.
No recent issues or complaints.
Continue azathioprine dosing and follow for any changes.
# Spinal Stenosis
# Chronic Pain Syndrome
Stable. No new or increased symptoms.
Continue current pain regimen including Fentanyl patch, Lyrica, etc.
PT / OT evaluations when able
# Chronic Indwelling Cespedes
This was placed during prior admission here in September of this year.
Plan was for eventual outpatient cysto and voiding trial - it is not clear whether this happened.
Maintain Cespedes for now.
Follow-up with Urology as an outpatient.
Could consider TOV here prior to discharge.
DVT Prophylaxis: Eliquis on hold
Code Status: Full
DW RN
DW renal/Uro
total time spent 51 min
Anticipated Discharge: 24 - 48 hours
Subjective/Interval History
-
Date of Service: November 25, 2023
Objective Data
-
Labs:
Laboratory Results
11/25/23
07:02
WBC 3.7 L
Hgb 8.5 L
Hct 24.9 L
Plt Count 72 L
Sodium 138
Potassium 3.8
Chloride 111 H
Carbon Dioxide 21 L
BUN 49 H
Creatinine 1.5 H
Glucose 119 H
Calcium 8.6
Vital Signs:
Vital Signs
Temp Pulse Resp BP Pulse Ox
36.4 C 79 20 120/65 94
11/25/23 08:13 11/25/23 08:13 11/25/23 08:13 11/25/23 08:13 11/25/23 08:13
I&O
11/24/23 11/25/23 11/26/23
06:59 06:59 06:59
Intake Total 680 / 680 580 / 580
Output Total 2650 / 2650 -375 / -375
Balance -1970 / -1970 955 / 955
Review of Systems
-
History Source: Patient
All other systems: Not reviewed unless documented
Physical Exam
-
General: Well Developed, Comfortable, Conversant and Appears Chronically Ill
Respiratory: Clear to Auscultation and Non Labored Respirations; Negative Accessory Resp Muscle Use
Cardiac: Regular Rhythm and S1/S2
GI: Soft and Nontender
Genito-urinary: Cespedes; Negative Continuous Bladder Irrigation
Musculoskeletal: Other (Left AKA)
Skin: Other (Right foot with wound VAC )
Neuro: Awake and Alert
Psych: Calm and Intact Judgement/Insight (somewhat)
Data Reviewed
-
Ultrasound: Report Reviewed by me, Discussed with Patient and Discussed with Family
Labs: Labs Reviewed by me
[2023-11-25] MEDS: COREG 3.125 MG PO ×2 (08:23→20:59)
[2023-11-25 08:32] LABS: Glucose - Point of Care 147 mg/dl (70-99)
[2023-11-25] MEDS: NOVOLOG FLEXPEN-MODERATE RESISTANCE SC (08:38)
[2023-11-25] MEDS: NOVOLOG FLEXPEN 5 UNITS SC ×3 (08:45→17:51)
--- NOTE | 2023-11-25 09:46 | W.PN.URO.CBU ---
Today's Communication / Plan
-
Stop CBI
Assessment / Plan
-
Urine retention
Gross hematuria on Eliquis: resolved
Diagnosis
-
Date of Service: November 25, 2023
-
Patient Diagnosis:
Urine retention: catheter dependent as of 09/19/23 admission when he was found to have obstructive uropathy
Gross hematuria on anticoagulation: resolved off of Eliquis
Subjective
-
Comfortable
No catheter bothere
Objective
-
Vital Signs
Temp Pulse Resp BP Pulse Ox
97.5 F 79 20 120/65 94
11/25/23 08:13 11/25/23 08:13 11/25/23 08:13 11/25/23 08:23 11/25/23 08:13
Intake and Output
11/24/23 11/25/23 11/26/23
06:59 06:59 06:59
Intake Total 680 / 680 580 / 580
Output Total 2650 / 2650 -375 / -375
Balance -1970 / -1970 955 / 955
Intake:
Oral fluids 480 / 480 480 / 480
IV piggybacks 200 / 200 100 / 100
Output:
True Urine Output from CBI 2650 / 2650 -375 / -375
Laboratory Results
11/25/23 07:02
11/25/23 07:02
Review of Systems
-
Constitutional: Fatigue
Respiratory: No Symptoms
Cardiac: No Symptoms
Abdomen/GI: No Symptoms
: Difficulty Voiding
Physical Exam
-
General - no acute distress
Abdomen - soft, non-tender
Genitalia - chronic edema, Cespedes draining clear urine
Counseling
-
Discussed with Hospitalist: cleared for discharge from standpoint
[2023-11-25] MEDS: DURAGESIC 25 MCG/HR PATCH 1 PATCH TRANSDERM (10:19)
--- NOTE | 2023-11-25 10:27 | PTOTSP ---
Speech Therapy
Recommend
1. Advance to IDDSI level 6 (Soft and Bite-Sized) and continue thin liquids.
2. Aspiration precautions.
3. Upright with all intake.
4. Oral care after meals to ensure complete clearance.
ST will follow to ensure diet tolerance and advance/modify diet as needed.
--- NOTE | 2023-11-25 10:47 | CON.CAR ---
Addendum entered and electronically signed by Estrada Cotto MD 11/25/23 16:15:
I saw and examined the patient.
The Metal Ceiling Builder's note was reviewed and I agree with the note.
Comment: Briefly, 83-year-old man past medical history of heart failure with preserved ejection fraction presenting with hypoxia and fever found to have pneumonia treated with IV antibiotics
Also found to have nonhealing wound of the right lower extremity for which he underwent angioplasty and debridement this past week
Hospital course has been complicated by acute kidney injury as well as hematuria
Given history of A-fib would resume Eliquis when safe from urology perspective
Patient's weight is up significantly and has peripheral edema on exam
Would benefit from diuresis
Will resume Bumex 0.5 mg which is his home dose. Was only taking every 48 hours at home, would dose daily here.
Appreciate nephrology input
Original Note:
Consultation
Consultation Request
Date/Time Consultation Requested: 11/25/2023
Date/Time Consultation Performed: 11/25/2023
Requesting Provider: Dr. Woodruff
Performing Provider: Dr. Cotto
Reason for Consultation: Hematuria on Eliquis
Medical History
-
History of Present Illness:
HPI: Antoine is an 83 year old male with PMH of chronic HFpEF, paroxysmal afib, PPM implantation, LBBB, CAD, HTN, HLD, GERD, CKD, UC, thrombocytopenia, and DM2 who presented to [facility] for evaluation of hypoxia and fever. Admitted with pneumonia and
started on abx. Then was also noted to have nonhealing wound of the R LE and underwent arteriogram, lithotripsy, angioplasty, and debridement on 11/21/23. Post procedure, he developed LENI with creat up to 2.0 and nephrology was consulted and his bumex
was placed on hold. He then was noted to have hematuria with dark red blood in his zaragoza bag overnight 11/23/2023 and his Eliquis was placed on hold. Urology consulted and placed on CBI. Hematuria has resolved and CBI stopped. His renal function is
improving with creat down to 1.5. Cardiology consulted for discussion regarding re-initiation of Eliquis and diuretic. He has no cardiac complaints at this time. Does have cough that he notes is more from congestion and post nasal drip.
PMH:
Chronic HFpEF
Paroxysmal Afib with RVR
s/p CV in ER 08/01/20
s/p CV in ER 03/30/23
Chronic Eliquis OAC
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
Chronic LBBB
h/o falls 08/2022 resulting in bruising and 11/2022 resulting in SDH
CAD
s/p CABG x5 in 2009
s/p LAD PCI 06/2014, cath showed SVG to diag sequential to OM1 seq to OM2 100% occluded
s/p PCI LCX EMELINA 08/02/20 complicated by small groin PSA treated with thrombin injection in IR 08/02/20
severe spinal stenosis s/p radiofrequency ablation
PAD
s/p L AKA 06/26/2023
HTN
HLD
GERD
CKD
Ulcerative colitis
chronic thrombocytopenia
h/o GI bleed
DM-2
Past Medical History
Past Medical History: Other (in HPI)
Social History
Tobacco: Non-Smoker
Alcohol: None
Personal:
Living: With Family
Employment: Retired
Family History
Family History: CAD
Allergies / Home Medications
Allergy/AdvReac Type Severity Reaction Status Date / Time
Sulfa (Sulfonamide Allergy Hives Verified 09/14/23 13:25
Antibiotics)
sulfasalazine Allergy mother Verified 09/14/23 13:25
states
hives
�Medication �Instructions �Recorded �Confirmed �Type
atorvastatin 80 mg tablet 80 mg PO DAILY@2029 High 03/30/23 11/14/23 History
Cholesterol
pantoprazole 40 mg tablet,delayed 40 mg PO DAILY Gastrointestinal 03/30/23 11/14/23 History
release Issue
folic acid-vit B6-vit B12 2.5 1 tab PO DAILY Supplement 04/16/23 11/14/23 History
mg-25 mg-2 mg tablet (Folbic)
carvedilol 3.125 mg tablet 3.125 mg PO BID #60 tabs 04/17/23 11/14/23 Rx
amiodarone 200 mg tablet 200 mg PO DAILY Arrhythmia 05/04/23 11/14/23 History
acetaminophen 325 mg tablet 650 mg PO Q4H PRN mild 06/22/23 11/14/23 History
pain/fever>100.4
bisacodyl 10 mg rectal suppository 10 mg OR DAILY PRN no BM or 06/22/23 11/14/23 History
MOM/lactulose ineffective
fluticasone propionate 50 1 spray intranasal QPM Allergies 06/22/23 11/14/23 History
mcg/actuation nasal
spray,suspension
insulin glargine 100 unit/mL 15 unit SC DAILY@2029 Diabetes 06/22/23 11/14/23 History
subcutaneous solution (Lantus
U-100 Insulin)
insulin lispro 100 unit/mL 0 - 12 sliding scale dose SC 06/22/23 11/14/23 History
subcutaneous pen (Humalog KwikPen TID@0730,1230,1730 Diabetes
(U-100) Insulin)
lactulose 20 gram/30 mL oral 20 g PO HS PRN Constipation 06/22/23 11/14/23 History
solution
mirtazapine 30 mg tablet 15 mg PO DAILY@2029 Mental 06/22/23 11/14/23 History
Health/Anxiety
multivitamin 1 tab PO DAILY Supplement 06/22/23 11/14/23 History
naloxone 4 mg/actuation nasal 4 mg intranasal Q2M PRN 06/22/23 11/14/23 History
spray (Narcan) constricted pupils,loss of
consc,slow breathing
pregabalin 75 mg capsule (Lyrica) 75 mg PO TID Pain 06/22/23 11/14/23 History
azathioprine 75 mg tablet 75 mg PO DAILY ulcerative colitis 09/14/23 11/14/23 History
apixaban 2.5 mg tablet (Eliquis) 2.5 mg PO BID #60 tabs 09/23/23 11/14/23 Rx
fentanyl 25 mcg/hr transdermal 1 patch transdermal Q72H Pain #1 ea 09/23/23 11/14/23 Rx
patch
tamsulosin 0.4 mg capsule 0.4 mg PO DAILY 30 days #30 caps 09/23/23 11/14/23 Rx
bumetanide 0.5 mg tablet 0.5 mg PO Q48H Fluid 11/14/23 11/14/23 History
Retention/Swelling
guaifenesin 100 mg/5 mL oral 200 mg PO Q6H Cough 11/14/23 11/14/23 History
liquid (Tussin)
ipratropium 0.5 mg-albuterol 3 mg 3 ml inhalation R Q6 11/14/23 11/14/23 History
(2.5 mg base)/3 mL nebulization Lung/Breathing Issues
soln
Review of Systems
-
History Source: Patient
All other systems: Negative unless noted
Physical Exam
Vital Signs
Temp Pulse Resp BP Pulse Ox
97.5 F 79 20 120/65 94
11/25/23 08:13 11/25/23 08:13 11/25/23 08:13 11/25/23 08:23 11/25/23 08:13
Lab Results
11/25/23 07:02
11/25/23 07:02
Cmq-W-Brjzyrgagyv Pept 44562 pg/ml 11/22/23 07:53
Physical Exam
General: Well Developed, Well Nourished and No Apparent Distress
HEENT: Normocephalic, Anicteric and Moist Mucous Membranes
Respiratory: Rhonchi and Non Labored Respirations
Cardiac: S1/S2 and Regular Rhythm
Musculoskeletal: Edema
Skin: Warm and Dry
Neuro: AO x 3
Psych: Calm
Impression / Plan
-
PCP: Dr. Shaquille Mata
Nuclear Worker Technician: Dr. Bermudez
Impression:
CAP
PAD w/ nonhealing wound of RLE
s/p L AKA 06/26/2023
s/p RLE arteriogram, lithotripsy, angioplasty, and wound debridement 11/21/2023
LENI on CKD 3
Hematuria
Acute on chronic HFpEF
Paroxysmal Afib with RVR
s/p CV in ER 08/01/20
s/p CV in ER 03/30/23
Chronic Eliquis OAC
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
Chronic LBBB
h/o falls 08/2022 resulting in bruising and 11/2022 resulting in SDH
CAD
s/p CABG x5 in 2009
s/p LAD PCI 06/2014, cath showed SVG to diag sequential to OM1 seq to OM2 100% occluded
s/p PCI LCX EMELINA 08/02/20 complicated by small groin PSA treated with thrombin injection in IR 08/02/20
severe spinal stenosis s/p radiofrequency ablation
HTN
HLD
GERD
Ulcerative colitis
chronic thrombocytopenia
h/o GI bleed
DM-2
ECHO 08/02/20: EF 40-45%, basal to mid inferior and posterior lateral hypokinesis, mild concentric LVH, mild MAC, trace MR, mild aortic insufficiency, mild TR, PAP 36-41 mmHg
Echo 05/14/21: Ejection fraction 50-55%, mild MR
ECHO 04/16/23: EF 50%, hypokinesis of inferolateral wall, mild concentric LVH, mild MR, mild AR, mild TR, PAP 26 mmHg, trace OR
ECHO 05/05/23: Technically fair, EF 55%, biatrial enlargement, no significant valve disease, no pericardial effusion
Plan:
-Presented with PNA, continue abx per primary service.
-PAD noted, s/p arteriogram, lithotripsy, angioplasty, and debridement of RLE. Continue wound care
-LENI post procedure with creat up to 2.0, nephrology following. Creat improved to 1.5 11/24.
-Bumex has been on hold. Weight up significantly and +[place] [address] 11/21. Will likely need to resume diuretic once ok per nephrology. As OP was taking bumex 0.5mg every other day.
-Also w/ hematuria, OP Eliquis has been on hold. Patient is a CHADSVasc score of 5. Does have h/o GIB, falls, and now hematuria.
-Discussed w/ patient and he feels he would rather accept bleeding risk and restart anticoagulation to protect for stroke.
-Hematuria resolved. CBI stopped. Urology following. Would resume Eliquis once ok per urology. Follow renal function closely as he is borderline for dose reduction of Eliquis.
-Echo 04/2023 with EF 55% and no significant valvular disease.
-EKG this admission SR with 1st degree AV block and LBBB which is chronic. No afib noted. Not on telemetry.
-Continue amiodarone and coreg.
HPI: Antoine is an 83 year old male with PMH of chronic HFpEF, paroxysmal afib, PPM implantation, LBBB, CAD, HTN, HLD, GERD, CKD, UC, thrombocytopenia, and DM2 who presented to [facility] for evaluation of hypoxia and fever. Admitted with pneumonia and
started on abx. Then was also noted to have nonhealing wound of the R LE and underwent arteriogram, lithotripsy, angioplasty, and debridement on 11/21/23. Post procedure, he developed LENI with creat up to 2.0 and nephrology was consulted and his bumex
was placed on hold. He then was noted to have hematuria with dark red blood in his zaragoza bag overnight 11/23/2023 and his Eliquis was placed on hold. Urology consulted and placed on CBI. Hematuria has resolved and CBI stopped. His renal function is
improving with creat down to 1.5. Cardiology consulted for discussion regarding re-initiation of Eliquis and diuretic. He has no cardiac complaints at this time. Does have cough that he notes is more from congestion and post nasal drip.
Data Reviewed
-
EKG: Tracing Personally Visualized and interpreted
Radiology: Report Reviewed by me
CT Scan: Report Reviewed by me
Ultrasound: Report Reviewed by me
Labs: Labs Reviewed by me
Old Records: Reviewed
[2023-11-25 12:04] LABS: Glucose - Point of Care 201 mg/dl (70-99)
[2023-11-25] MEDS: NOVOLOG FLEXPEN-MODERATE RESISTANCE 3 UNITS SC (12:14)
--- NOTE | 2023-11-25 13:53 | CM ---
Addendum entered by Kylie Lou 11/25/23 14:54:
IMM completed by son and updated re pending plan. CM will continue to follow for discharge planning needs.
Original Note:
CM updated admissions at [facility] and Pending physician assessment plan is for patient to return to SNF. Patient is a resident of [facility] and has Medicare. NO precert needed. Bed would be available when medically appropriate.
Report to --[phone]
fax [phone]
--- NOTE | 2023-11-25 14:46 | W.PN.NEPH.PH ---
Today's Communication / Plan
-
resume bumex
Assessment/Plan
-
Assessment:
Septic Shock from Pneumonic process
CLI-PVD s/p Diagnostic arteriogram, intravascular lithotripsy, drug coated balloon angioplasty, wound debridement and vacuum assisted closure on 11/19
Diarrhea
LENI on CKD III-baseline cr 1.2-1.3
Paroxysmal A-fib
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
CAD/AK/CABG 2009
Chronic LBBB
DM-II
Chronic HFpEF
Spinal Stenosis
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
Chronic right lower extremity lymphedema
Hx CVA per CT head
Hx subdural hematoma after mechanical fall
Hx orthostatic hypotension/HTN
Anemia of chronic disease
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
phantom leg pain
HLD
Chronic pain syndrome secondary to spinal stenosis on chronic opiate patch
GERD/Hx GI bleed
Hx ulcerative colitis- azathioprine
Anxiety
Chronic ambulatory dysfunction with chronic foot and ankle deformities
Hypoalbuminemia
Plan:
A/w septic shock with PNA
CLI of right leg s/p angiogram 11/19
LENI-mainly started after 11/19 suspect likely SAMREEN(11/17 and 11/19), could also be prerenal from diarrhea and hypotension 11/19
creatinine improved to 1.5 from 2, non oliguric off CBI
renal u/s without significant findings
checked UA, low fena, keep zaragoza with h/o obstructive uropathy
wt is up with significant edema-resume bumex daily while in hospital
BPs stable now
pancytopenia-chronic was seen by heme before
avoid nephrotoxins
d/w pt
-
-
Date of Service: November 25, 2023
CC / HPI / ROS
-
Chief Complaint:
LENI
History of Present Illness:
creatinine improved to 1.5
hemodynamically stable
metabolic acidosis persists but improving
wt increasing
Review of Systems:
off CBI for macrohematuria now resolved
Nonoliguric
zaragoza
right leg wound pump
Labs
-
Labs:
WBC 3.7 10^3/uL (4.8-10.8) L 11/25/23 07:02
RBC 2.84 10^6/uL (4.70-6.10) L 11/25/23 07:02
Hgb 8.5 g/dL (13.0-18.0) L 11/25/23 07:02
Hct 24.9 % (39.0-52.0) L 11/25/23 07:02
Plt Count 72 10^3/uL (130-400) L 11/25/23 07:02
Sodium 138 mmol/L (135-145) 11/25/23 07:02
Potassium 3.8 mmol/L (3.5-5.1) 11/25/23 07:02
Chloride 111 mmol/L (98-107) H 11/25/23 07:02
Carbon Dioxide 21 mmol/L (22-30) L 11/25/23 07:02
BUN 49 mg/dl (9-20) H 11/25/23 07:02
Creatinine 1.5 mg/dL (0.7-1.3) H 11/25/23 07:02
eGFR 45.91 11/25/23 07:02
Glucose 119 mg/dl (70-99) H 11/25/23 07:02
Calcium 8.6 mg/dl (8.4-10.2) 11/25/23 07:02
Pht-X-Pwxnosxskzw Pept 62573 pg/ml 11/22/23 07:53
Albumin 2.7 g/dl (3.5-5.0) L 11/23/23 08:34
Physical Exam
-
Vital Signs:
Vital Signs
Temp Pulse Resp BP Pulse Ox
97.5 F 79 20 120/65 94
11/25/23 08:13 11/25/23 08:13 11/25/23 08:13 11/25/23 08:23 11/25/23 08:13
Cardiovascular:: Regular rate and rhythm
Respiratory:: Bilateral: CTA
Lung Excursion:: Normal
Abdomen:: Nontender and Soft
Extremity Edema:: +3: Right:
Zaragoza Catheter: Yes
Other Findings::
left AKA stump edema +
--- NOTE | 2023-11-25 15:23 | WOUNDNOTE ---
RIGHT POSTERIOR LEG WOUND
--- NOTE | 2023-11-25 15:24 | WOUNDNOTE ---
[facility] RN NOTE: Changed wound vac unit on R lateral/posterior leg with black foam to 125mmgh per vascular. Wound bed is granular and friable. Scant amount of sanguinous drainage noted in canister. ABD placed under vac tubing and wrapped with JEANINE to
secure. Patient turned with assist, on air overlay, palm check done with adequate inflation. Sacrum with masd, scrotal skin tear healing. Posterior scrotum with partial thickness/abrasion wound likely resulting from a combination of edema and
friction/shearing. R heel is intact and off-loaded with boot. Patient repositioned to R semi side lying position. TOOTIE Florez given update. Spoke to MACY Lou as patient awaits discharge back to [place].
[2023-11-25 15:47] VITALS: BP 114/97
[2023-11-25] MEDS: ROCEPHIN 1000 MG IV (16:42)
[2023-11-25] MEDS: STERILE WATER FOR INJECTION 10 ML IV (16:42)
[2023-11-25] MEDS: FLAGYL 500 MG PO ×2 (16:42→21:00)
[2023-11-25] MEDS: DESENEX/MITRAZOL/ZEASORB 1 APPLIC TOPICAL ×2 (16:47→20:59)
[2023-11-25 16:48] LABS: Glucose - Point of Care 191 mg/dl (70-99)
[2023-11-25] MEDS: HYDROPHOR 1 APPLIC TOPICAL (16:48)
[2023-11-25] MEDS: BUMEX 0.5 MG PO (16:48)
[2023-11-25] MEDS: LIPITOR 80 MG PO (16:53)
[2023-11-25] MEDS: NOVOLOG FLEXPEN-MODERATE RESISTANCE 1 UNITS SC (17:52)
[2023-11-25] MEDS: TYLENOL 650 MG PO (18:44)
[2023-11-25 20:31] LABS: Glucose - Point of Care 200 mg/dl (70-99)
[2023-11-25] MEDS: LANTUS 0.149999999999999994 UNITS SC (21:00)
[2023-11-25 23:20] VITALS: BP 107/58
[2023-11-26] MEDS: FLAGYL 500 MG PO ×3 (05:39→21:48)
[2023-11-26 06:00] VITALS: BMI 32.2
[2023-11-26 07:43] LABS: Glucose - Point of Care 63 mg/dl (70-99)
[2023-11-26 07:45] LABS: Hematocrit 24.7 % (39.0-52.0); Hemoglobin 8.3 g/dL (13.0-18.0); Mean Corp Hgb Conc. 33.6 g/dL (33.0-37.0); Mean Corpuscular Volume 89.2 fL (80.0-94.0); Platelet Count 71 10^3/uL (130-400); Red Blood Cell Count 2.77 10^6/uL (4.70-6.10); Red Cell Dist. Width 22.9 % (11.5-14.5)
[2023-11-26 07:50] VITALS: BP 134/102
[2023-11-26 08:04] LABS: Glucose - Point of Care 80 mg/dl (70-99)
[2023-11-26 08:11] LABS: Blood Urea Nitrogen 44 mg/dl (9-20); Calcium 8.5 mg/dl (8.4-10.2); Carbon Dioxide 25 mmol/L (22-30); Chloride 111 mmol/L (98-107); Estimated Creatinine Clearance 51 ml/min; Glucose 57 mg/dl (70-99); Magnesium 1.9 mg/dl (1.6-2.3); Sodium 140 mmol/L (135-145); eGFR > 60.00
[2023-11-26] MEDS: NOVOLOG FLEXPEN-MODERATE RESISTANCE SC (08:13)
[2023-11-26 08:17] VITALS: BP 134/102
[2023-11-26] MEDS: PROTONIX 40 MG PO (08:20)
[2023-11-26] MEDS: LYRICA 75 MG PO ×3 (08:20→21:47)
[2023-11-26] MEDS: ELIQUIS 2.5 MG PO ×2 (08:20→21:47)
[2023-11-26] MEDS: PACERONE 200 MG PO (08:20)
[2023-11-26] MEDS: COREG 3.125 MG PO ×2 (08:20→21:47)
[2023-11-26] MEDS: FLOMAX 0.400000000000000022 MG PO (08:20)
[2023-11-26] MEDS: BUMEX 0.5 MG PO (08:21)
[2023-11-26] MEDS: IMURAN 75 MG PO (08:21)
[2023-11-26] MEDS: ASPIR LOW (ENTERIC COATED) 81 MG PO (08:21)
[2023-11-26] MEDS: HYDROPHOR 1 APPLIC TOPICAL (08:22)
[2023-11-26] MEDS: DESENEX/MITRAZOL/ZEASORB 1 APPLIC TOPICAL ×2 (08:22→21:48)
[2023-11-26] MEDS: DUONEB 3 ML INH ×4 (08:25→21:00)
[2023-11-26] MEDS: NOVOLOG FLEXPEN SC (08:27)
--- NOTE | 2023-11-26 08:57 | W.PN.CARDCBS ---
Addendum entered and electronically signed by Shaquille Mata MD 11/26/23 13:26:
Patient offers no complaints, at bedside
PMH/PSH/SH/FH: Reviewed
Allergies: Sulfa
Outpatient cardiac meds: Amiodarone 200 mg a day, apixaban 2.5 twice daily, atorvastatin 80 mg a day, Bumex 0.5 mg every other day, carvedilol 3.125 twice daily, insulin,
Current meds: Amiodarone 200 mg a day, apixaban 2.5 mg twice daily, atorvastatin 80 mg a day, carvedilol 3.125 mg twice daily, aspirin 81 mg a day, Bumex 0.5 mg daily
ROS: Negative except as above
134/102, Pulse 61, resp rate 16, afebrile, I/O -1 L weight: 93.2 kg had been 94.6 similar to November 23
No distress eating lunch, head neck exam unremarkable lungs clear, regular rate and rhythm, no murmurs JVD okay, carotids okay, abdomen benign extremities with left AKA, right leg is in boot, neuro nonfocal
Impression:
CAP
PAD w/ nonhealing wound of RLE
s/p L AKA 06/26/2023
s/p RLE arteriogram, lithotripsy, angioplasty, and wound debridement 11/21/2023KI on CKD 3
Hematuria
Acute on chronic HFpEF
Paroxysmal Afib with RVR
s/p CV in ER 08/01/20
s/p CV in ER 03/30/23Chronic Eliquis OAC
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
Chronic LBBB
h/o falls 08/2022 resulting in bruising and 11/2022 resulting in SDH
CAD
s/p CABG x5 in 2009
s/p LAD PCI 06/2014, cath showed SVG to diag sequential to OM1 seq to OM2 100% occluded
s/p PCI LCX EMELINA 08/02/20 complicated by small groin PSA treated with thrombin injection in IR 08/02/20severe spinal stenosis s/p radiofrequency ablation
HTN
HLD
GERD
Ulcerative colitis
chronic thrombocytopenia
h/o GI bleed
DM-2
ECHO 08/02/20: EF 40-45%, basal to mid inferior and posterior lateral hypokinesis, mild concentric LVH, mild MAC, trace MR, mild aortic insufficiency, mild TR, PAP 36-41 mmHg
Echo 05/14/21: Ejection fraction 50-55%, mild MR
ECHO 04/16/23: EF 50%, hypokinesis of inferolateral wall, mild concentric LVH, mild MR, mild AR, mild TR, PAP 26 mmHg, trace WI
ECHO 05/05/23: Technically fair, EF 55%, biatrial enlargement, no significant valve disease, no pericardial effusion
Plan:
He is back on bumetanide. Creatinine is 1.2. Potassium is 4
He is back on Eliquis without hematuria
He remains on amiodarone and carvedilol
No new cardiac recommendations.
He is anxious to go back to [facility] and tentatively is scheduled for transfer tomorrow. No objections to this.
Recommended cardiac meds at transfer:
Amiodarone 200 mg a day
Apixaban 2.5 mg twice daily
Atorvastatin 80 mg nightly
Carvedilol 3.125 mg twice daily
Aspirin 81 mg a day
Bumetanide 0.5 mg daily or per nephrology
BMP in 1 week
We will arrange for cardiac follow-up
Original Note:
Today's Communication / Plan
-
Bumex resumed. Follow weight, creat
Eliquis resumed. Follow hemoglobin and for recurrent hematuria.
Impression / Plan
-
PCP: Dr. Shaquille Mata
Puncher And Fastener: Dr. Bermudez
Impression:
CAP
PAD w/ nonhealing wound of RLE
s/p L AKA 06/26/2023
s/p RLE arteriogram, lithotripsy, angioplasty, and wound debridement 11/21/2023
LENI on CKD 3
Hematuria
Acute on chronic HFpEF
Paroxysmal Afib with RVR
s/p CV in ER 08/01/20
s/p CV in ER 03/30/23
Chronic Eliquis OAC
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
Chronic LBBB
h/o falls 08/2022 resulting in bruising and 11/2022 resulting in SDH
CAD
s/p CABG x5 in 2009
s/p LAD PCI 06/2014, cath showed SVG to diag sequential to OM1 seq to OM2 100% occluded
s/p PCI LCX EMELINA 08/02/20 complicated by small groin PSA treated with thrombin injection in IR 08/02/20
severe spinal stenosis s/p radiofrequency ablation
HTN
HLD
GERD
Ulcerative colitis
chronic thrombocytopenia
h/o GI bleed
DM-2
ECHO 08/02/20: EF 40-45%, basal to mid inferior and posterior lateral hypokinesis, mild concentric LVH, mild MAC, trace MR, mild aortic insufficiency, mild TR, PAP 36-41 mmHg
Echo 05/14/21: Ejection fraction 50-55%, mild MR
ECHO 04/16/23: EF 50%, hypokinesis of inferolateral wall, mild concentric LVH, mild MR, mild AR, mild TR, PAP 26 mmHg, trace WI
ECHO 05/05/23: Technically fair, EF 55%, biatrial enlargement, no significant valve disease, no pericardial effusion
Plan:
-Presented with PNA, continue abx per primary service.
-PAD noted, s/p arteriogram, lithotripsy, angioplasty, and debridement of RLE. Continue wound care.
-LENI post procedure with creat up to 2.0, nephrology following. Creat improved to 1.2 11/25.
-Bumex has been on hold, however with improvement in creat and increased weight with elevated proBNP, Bumex restarted at 0.5mg daily 11/25.
-Weight up significantly this admission, down 3lbs overnight, down to 205lbs.
-Follow daily weights, I&Os.
-Also w/ hematuria earlier in admission and Eliquis has been on hold, resumed in AM 11/25.
-Hematuria resolved. CBI stopped. Follow hemoglobin and follow for recurrent hematuria.
-Echo 04/2023 with EF 55% and no significant valvular disease.
-EKG this admission SR with 1st degree AV block and LBBB which is chronic. No afib noted.
-Continue amiodarone and coreg.
HPI: Antoine is an 83 year old male with PMH of chronic HFpEF, paroxysmal afib, PPM implantation, LBBB, CAD, HTN, HLD, GERD, CKD, UC, thrombocytopenia, and DM2 who presented to [facility] for evaluation of hypoxia and fever. Admitted with pneumonia and
started on abx. Then was also noted to have nonhealing wound of the R LE and underwent arteriogram, lithotripsy, angioplasty, and debridement on 11/21/23. Post procedure, he developed LENI with creat up to 2.0 and nephrology was consulted and his bumex
was placed on hold. He then was noted to have hematuria with dark red blood in his zaragoza bag overnight 11/23/2023 and his Eliquis was placed on hold. Urology consulted and placed on CBI. Hematuria has resolved and CBI stopped. His renal function is
improving with creat down to 1.5. Cardiology consulted for discussion regarding re-initiation of Eliquis and diuretic. He has no cardiac complaints at this time. Does have cough that he notes is more from congestion and post nasal drip.
Progress Note - Puncher And Fastener
Subjective
Date of Service: November 26, 2023
No complaints, feeling well this AM. Still w/ LE edema.
Objective
Labs:
11/26/23 07:07
11/26/23 07:07
Labs
Hgb 8.3 g/dL (13.0-18.0) L 11/26/23 07:07
Hct 24.7 % (39.0-52.0) L 11/26/23 07:07
Plt Count 71 10^3/uL (130-400) L 11/26/23 07:07
Sodium 140 mmol/L (135-145) 11/26/23 07:07
Potassium 4.0 mmol/L (3.5-5.1) 11/26/23 07:07
BUN 44 mg/dl (9-20) H 11/26/23 07:07
Creatinine 1.2 mg/dL (0.7-1.3) 11/26/23 07:07
Glucose 57 mg/dl (70-99) L 11/26/23 07:07
Vital Signs and I&O:
Vital Signs
Temp Pulse Resp BP Pulse Ox
98.3 F 61 16 134/102 97
11/26/23 07:50 11/26/23 08:55 11/26/23 08:55 11/26/23 07:50 11/26/23 08:55
Vital Signs
Temp Pulse Resp BP Pulse Ox
98.3 F 61 16 134/102 97
11/26/23 07:50 11/26/23 08:55 11/26/23 08:55 11/26/23 07:50 11/26/23 08:55
Intake & Output
11/24/23 11/25/23 11/26/23 11/27/23
06:59 06:59 06:59 06:59
Intake Total 680 / 680 580 / 580 957 / 957
Output Total 2650 / 2650 -375 / -375 1950 / 1949
Balance -1970 / -1970 955 / 955 -993 / -993
Physical Exam
Physical Exam
GEN: No distress, awake, alert, oriented x3
HEENT: supple, anicteric, mmm
LUNGS: Scattered rhonchi, no wheezes
CV: Reg, S1/S2, no murmur
EXT: No clubbing or cyanosis, +3 edema RLE, L AKA
NEURO: Gross non-focal
SKIN: Warm, dry, no rash
--- NOTE | 2023-11-26 09:11 | W.PN.HOSP.TC ---
Today's Communication/Plan
-
monitor for recurrence of gross hematuria now that Eliquis has been resumed
Assessment / Plan
Assessment / Plan
HPI: Patient is a 83y M with PMH significant for ASCVD, AFib and DM-II who presented to ED from local OR for evaluation of fever and hypoxemia.
A/P:
# Septic Shock 2/2 CAP
Patient has chronic Zaragoza catheter but no pyuria.
His chest x-ray is concern for right upper lobe abnormality- treated as possible pneumonia
COVID/flu negative. MRSA screen negative.
Off vasopressors.
Speech recc IDDSI [id number]
Continue broad-spectrum antibiotics ceftriaxone/Flagyl - total 10 days
Incentive Saeed, Acapella
# PAD
s/p Diagnostic arteriogram, intravascular lithotripsy, drug coated balloon angioplasty, wound debridement and vacuum assisted closure
Continue wound VAC changes, can be on [facility] schedule going forward. If wound VAC begins to alarm, can be removed and replaced with wet-to-dry dressing, ABD, and Dong wrap with mild compression
Continue aspirin
f/u vascular outpatient
# LENI on CKD III, Suspect contrast nephropathy s/p angiogram
SCr 1.2 today from 2.0 (peak); baseline 1.0
s/p gentle hydration
renal US unrevealing
with improved SCr, CORRECTIVE THERAPY AIDE TEACHER bumex resumed and now dosed daily
Renal on board
# Gross hematuria on Eliquis
resolved after CBI
Cont zaragoza
Card recc to restart Eliquis
Given Eliquis has been resumed, will monitor for further hematuria
# Diarrhea, most likely 2/2 abx, improving
colitis on imaging
stool cultures ordered but no samples taken
Cont Ceftriaxone and Flagyl as stated above
# ASCVD
Continue current CV med regimen.
Monitor for any chest pain or other symptoms.
# Paroxysmal Atrial Fibrillation, stable.
Heart rates controlled on current medications Coreg and amiodarone
Continue amiodarone, carvedilol with holding parameters for BP.
Eliquis for stroke risk reduction.
# DM-II, Stable.
A1C 8.1 %
Cont CORRECTIVE THERAPY AIDE TEACHER Lantus, decrease from 15 units to 5 units HS
Added Aspart 5 units AC
Cover with ISS
# Acute on Chronic HFpEF, now resolved
CORRECTIVE THERAPY AIDE TEACHER bumex resumed
Follow I/Os, daily weights, etc and resume diuretics when appropriate.
# Ulcerative Colitis, Stable.
No recent issues or complaints.
Continue azathioprine dosing and follow for any changes.
# Spinal Stenosis
# Chronic Pain Syndrome
Stable. No new or increased symptoms.
Continue current pain regimen including Fentanyl patch, Lyrica, etc.
PT / OT evaluations when able
# Chronic Indwelling Zaragoza
This was placed during prior admission here in September of this year.
Plan was for eventual outpatient cysto and voiding trial - it is not clear whether this happened.
Maintain Zaragoza for now.
Follow-up with Urology as an outpatient.
Could consider TOV here prior to discharge.
DVT Prophylaxis: Eliquis resumed
Code Status: Full
DW RN
Anticipated Discharge: 24 - 48 hours
Subjective/Interval History
-
Date of Service: November 26, 2023
Objective Data
-
Labs:
Laboratory Results
11/26/23
07:07
WBC 4.0 L
Hgb 8.3 L
Hct 24.7 L
Plt Count 71 L
Sodium 140
Potassium 4.0
Chloride 111 H
Carbon Dioxide 25
BUN 44 H
Creatinine 1.2
Glucose 57 L
Calcium 8.5
Vital Signs:
Vital Signs
Temp Pulse Resp BP Pulse Ox
36.8 C 61 16 134/102 97
11/26/23 07:50 11/26/23 08:55 11/26/23 08:55 11/26/23 07:50 11/26/23 08:55
I&O
11/25/23 11/26/23 11/27/23
06:59 06:59 06:59
Intake Total 580 / 580 957 / 957
Output Total -375 / -375 1950 / 1950
Balance 955 / 955 -993 / -993
Review of Systems
-
History Source: Patient
All other systems: Not reviewed unless documented
Physical Exam
-
General: Well Developed, Comfortable, Conversant and Appears Chronically Ill
Respiratory: Clear to Auscultation and Non Labored Respirations; Negative Accessory Resp Muscle Use
Cardiac: Regular Rhythm and S1/S2
GI: Soft and Nontender
Genito-urinary: Zaragoza; Negative Continuous Bladder Irrigation
Musculoskeletal: Other (Left AKA)
Skin: Other (Right foot with wound VAC )
Neuro: Awake and Alert
Psych: Calm and Intact Judgement/Insight (somewhat)
Data Reviewed
-
Ultrasound: Report Reviewed by me, Discussed with Patient and Discussed with Family
Labs: Labs Reviewed by me
[2023-11-26 12:07] LABS: Glucose - Point of Care 287 mg/dl (70-99)
[2023-11-26] MEDS: NOVOLOG FLEXPEN-MODERATE RESISTANCE 5 UNITS SC (12:52)
[2023-11-26] MEDS: NOVOLOG FLEXPEN 5 UNITS SC ×2 (12:52→16:33)
[2023-11-26 13:49] LABS: Body Fluid for Eosinophils 1%
--- NOTE | 2023-11-26 14:54 | W.PN.NEPH.PH ---
Today's Communication / Plan
-
d/c plan
Assessment/Plan
-
Assessment:
Septic Shock from Pneumonic process
CLI-PVD s/p Diagnostic arteriogram, intravascular lithotripsy, drug coated balloon angioplasty, wound debridement and vacuum assisted closure on 11/19
Diarrhea
LENI on CKD III-baseline cr 1.2-1.3
Paroxysmal A-fib
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
CAD/[place]/CABG 2009
Chronic LBBB
DM-II
Chronic HFpEF
Spinal Stenosis
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
Chronic right lower extremity lymphedema
Hx CVA per CT head
Hx subdural hematoma after mechanical fall
Hx orthostatic hypotension/HTN
Anemia of chronic disease
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
phantom leg pain
HLD
Chronic pain syndrome secondary to spinal stenosis on chronic opiate patch
GERD/Hx GI bleed
Hx ulcerative colitis- azathioprine
Anxiety
Chronic ambulatory dysfunction with chronic foot and ankle deformities
Hypoalbuminemia
Plan:
A/w septic shock with PNA
CLI of right leg s/p angiogram 11/19
LENI-resolved, cr down to 1.2 baseline
non oliguric with chr zaragoza
renal u/s without significant findings
checked UA, low fena, keep zaragoza with h/o obstructive uropathy
wt improving but still with significant edema-cont bumex daily while in hospital
BPs stable
pancytopenia-chronic was seen by heme before
avoid nephrotoxins
d/w pt
d/c plan
f/u with PCP , BMP next week
-
-
Date of Service: November 26, 2023
CC / HPI / ROS
-
Chief Complaint:
LENI
History of Present Illness:
creatinine improved to 1.2
hemodynamically stable
wt decreasing
Review of Systems:
off CBI for macrohematuria now resolved
Nonoliguric with zaragoza
right leg wound pump
no cp or sob
Labs
-
Labs:
WBC 4.0 10^3/uL (4.8-10.8) L 11/26/23 07:07
RBC 2.77 10^6/uL (4.70-6.10) L 11/26/23 07:07
Hgb 8.3 g/dL (13.0-18.0) L 11/26/23 07:07
Hct 24.7 % (39.0-52.0) L 11/26/23 07:07
Plt Count 71 10^3/uL (130-400) L 11/26/23 07:07
Sodium 140 mmol/L (135-145) 11/26/23 07:07
Potassium 4.0 mmol/L (3.5-5.1) 11/26/23 07:07
Chloride 111 mmol/L (98-107) H 11/26/23 07:07
Carbon Dioxide 25 mmol/L (22-30) 11/26/23 07:07
BUN 44 mg/dl (9-20) H 11/26/23 07:07
Creatinine 1.2 mg/dL (0.7-1.3) 11/26/23 07:07
eGFR > 60.00 11/26/23 07:07
Glucose 57 mg/dl (70-99) L 11/26/23 07:07
Calcium 8.5 mg/dl (8.4-10.2) 11/26/23 07:07
Twh-P-Cngrubxiblo Pept 71633 pg/ml 11/22/23 07:53
Albumin 2.7 g/dl (3.5-5.0) L 11/23/23 08:34
Physical Exam
-
Vital Signs:
Vital Signs
Temp Pulse Resp BP Pulse Ox
98.3 F 61 16 134/102 97
11/26/23 07:50 11/26/23 08:55 11/26/23 08:55 11/26/23 07:50 11/26/23 08:55
Cardiovascular:: Regular rate and rhythm
Respiratory:: Bilateral: CTA
Lung Excursion:: Normal
Abdomen:: Nontender and Soft
Extremity Edema:: +3: Right:
Zaragoza Catheter: Yes
[2023-11-26] MEDS: ROCEPHIN 1000 MG IV (15:23)
[2023-11-26] MEDS: STERILE WATER FOR INJECTION 10 ML IV (15:24)
[2023-11-26 15:55] VITALS: BP 116/60
--- NOTE | 2023-11-26 16:27 | CM ---
Patient for return to [facility] tomorrow, per physician. CM updated [facility] admissions and expressed patient family concern about bed hold expiration. CM will continue to follow for discharge planning needs.
Plan; return to SNF; tentatively tomorrow
[2023-11-26 16:29] LABS: Glucose - Point of Care 233 mg/dl (70-99)
[2023-11-26] MEDS: NOVOLOG FLEXPEN-MODERATE RESISTANCE 3 UNITS SC (16:33)
[2023-11-26] MEDS: LIPITOR 80 MG PO (16:35)
[2023-11-26 19:00] VITALS: BP 138/83
[2023-11-26 21:24] LABS: Glucose - Point of Care 278 mg/dl (70-99)
[2023-11-26] MEDS: LANTUS 0.0500000000000000028 UNITS SC (21:48)
[2023-11-26 23:10] VITALS: BP 112/62
[2023-11-27 03:00] VITALS: BP 107/53
[2023-11-27] MEDS: FLAGYL 500 MG PO (05:33)
[2023-11-27 05:40] VITALS: BMI 32.5
[2023-11-27 07:43] LABS: Glucose - Point of Care 164 mg/dl (70-99)
[2023-11-27] MEDS: DUONEB 3 ML INH ×2 (08:19→11:43)
[2023-11-27 08:28] VITALS: BP 144/82
[2023-11-27] MEDS: LYRICA 75 MG PO (08:41)
[2023-11-27] MEDS: ELIQUIS 2.5 MG PO (08:41)
[2023-11-27] MEDS: PACERONE 200 MG PO (08:41)
[2023-11-27] MEDS: ASPIR LOW (ENTERIC COATED) 81 MG PO (08:41)
[2023-11-27] MEDS: IMURAN 75 MG PO (08:41)
[2023-11-27] MEDS: PROTONIX 40 MG PO (08:41)
[2023-11-27] MEDS: BUMEX 0.5 MG PO (08:41)
[2023-11-27] MEDS: FLOMAX 0.400000000000000022 MG PO (08:41)
[2023-11-27] MEDS: DESENEX/MITRAZOL/ZEASORB 1 APPLIC TOPICAL (08:42)
[2023-11-27] MEDS: COREG 3.125 MG PO (08:42)
[2023-11-27] MEDS: NOVOLOG FLEXPEN-MODERATE RESISTANCE 1 UNITS SC (08:43)
[2023-11-27] MEDS: NOVOLOG FLEXPEN 5 UNITS SC ×2 (08:43→12:12)
[2023-11-27] MEDS: HYDROPHOR 1 APPLIC TOPICAL (08:44)
--- NOTE | 2023-11-27 08:53 | W.PN.HOSP.TC ---
Addendum entered and electronically signed by Trinity Woodruff MD 11/27/23 13:14:
total DC time 35 min
Original Note:
Today's Communication/Plan
-
Pending blood work today
OK to return to facility/SNF if blood work stable
Assessment / Plan
Assessment / Plan
HPI: Patient is a 83y M with PMH significant for ASCVD, AFib and DM-II who presented [place] ED from local [place] for evaluation of fever and hypoxemia.
A/P:
# Septic Shock 2/2 CAP
Patient has chronic Zaragoza catheter but no pyuria.
His chest x-ray is concern for right upper lobe abnormality- treated as possible pneumonia
COVID/flu negative. MRSA screen negative.
Off vasopressors.
Speech recc IDDSI [id number]
Continue broad-spectrum antibiotics ceftriaxone/Flagyl (total 10 days), would DC with 2 more days of PO Abx
Incentive Saeed, Acapella
# PAD
s/p Diagnostic arteriogram, intravascular lithotripsy, drug coated balloon angioplasty, wound debridement and vacuum assisted closure
Continue wound VAC changes, can be on [facility] schedule going forward. If wound VAC begins to alarm, can be removed and replaced with wet-to-dry dressing, ABD, and Dong wrap with mild compression
Continue aspirin
f/u vascular outpatient
# LENI on CKD III, Suspect contrast nephropathy s/p angiogram
SCr 1.2 from 2.0 (peak); baseline 1.0
s/p gentle hydration
renal US unrevealing
with improved SCr, SECURITIES ANALYST bumex resumed and now dosed daily
Renal on board
# Gross hematuria on Eliquis
resolved after CBI
Cont zaragoza
Card recc to restart Eliquis
Given Eliquis has been resumed, will monitor for further hematuria
# Diarrhea, most likely 2/2 abx, improving
colitis on imaging
stool cultures ordered but no samples taken
Cont Ceftriaxone and Flagyl as stated above
# ASCVD
Continue current CV med regimen.
Monitor for any chest pain or other symptoms.
# Paroxysmal Atrial Fibrillation, stable.
Heart rates controlled on Coreg and amiodarone
Eliquis for stroke risk reduction.
# DM-II, Stable.
A1C 8.1 %
Cont SECURITIES ANALYST Lantus, decreased from 15 units to 5 units HS
Added Aspart 5 units AC
Cover with ISS
# Acute on Chronic HFpEF, now resolved
SECURITIES ANALYST bumex resumed
Follow I/Os, daily weights, etc and resume diuretics when appropriate.
# Ulcerative Colitis, Stable.
No recent issues or complaints.
Continue azathioprine dosing and follow for any changes.
# Spinal Stenosis
# Chronic Pain Syndrome
Stable. No new or increased symptoms.
Continue current pain regimen including Fentanyl patch, Lyrica, etc.
PT / OT evaluations when able
# Chronic Indwelling Zaragoza
This was placed during prior admission here in September of this year.
Plan was for eventual outpatient cysto and voiding trial - it is not clear whether this happened.
Maintain Zaragoza for now.
Follow-up with Urology as an outpatient.
Could consider TOV here prior to discharge.
DVT Prophylaxis: Eliquis resumed
Code Status: Full
DW RN
DW CM
Anticipated Discharge: Today
Subjective/Interval History
-
Date of Service: November 27, 2023
Objective Data
-
Labs:
Laboratory Results
11/27/23
06:00
WBC Pending
Hgb Pending
Hct Pending
Plt Count Pending
Sodium Pending
Potassium Pending
Chloride Pending
Carbon Dioxide Pending
BUN Pending
Creatinine Pending
Glucose Pending
Calcium Pending
Vital Signs:
Vital Signs
Temp Pulse Resp BP Pulse Ox
36.8 C 60 20 144/82 100
11/27/23 03:00 11/27/23 08:28 11/27/23 08:28 11/27/23 08:28 11/27/23 08:28
I&O
11/26/23 11/27/23 11/28/23
06:59 06:59 06:59
Intake Total 957 / 957 780 / 780
Output Total 1950 / 1950 700 / 700
Balance -993 / -993 80 / 80
Review of Systems
-
History Source: Patient
All other systems: Not reviewed unless documented
Physical Exam
-
General: Well Developed, Comfortable, Conversant and Appears Chronically Ill
Respiratory: Clear to Auscultation and Non Labored Respirations; Negative Accessory Resp Muscle Use
Cardiac: Regular Rhythm and S1/S2
GI: Soft and Nontender
Genito-urinary: Zaragoza; Negative Continuous Bladder Irrigation
Musculoskeletal: Other (Left AKA)
Skin: Other (Right foot with wound VAC )
Neuro: Awake and Alert
Psych: Calm and Intact Judgement/Insight (somewhat)
Data Reviewed
-
Ultrasound: Report Reviewed by me, Discussed with Patient and Discussed with Family
Labs: Labs Reviewed by me
[2023-11-27 09:22] LABS: Hemoglobin 8.7 g/dL (13.0-18.0); Mean Corp Hgb Conc. 33.5 g/dL (33.0-37.0); Mean Corpuscular Hgb 29.8 pg (27.0-31.0); Platelet Count 81 10^3/uL (130-400); Red Blood Cell Count 2.92 10^6/uL (4.70-6.10); Red Cell Dist. Width 23.2 % (11.5-14.5); White Blood Cell Count 5.2 10^3/uL (4.8-10.8)
--- NOTE | 2023-11-27 09:22 | CM ---
Addendum entered by Kylie Lou 11/27/23 11:19:
CM updated patient son re plan for discharge and updated admissions at [facility]. Patient for tentative nut picker at 2pm. CM will continue to follow for discharge planning needs.
Original Note:
Patient seen at bedside. Patient resident of [facility] and has Medicare. NO precert needed for return. CM updated admissions regarding wound vac and per physician awaiting confirmation of discharge. Discharge order in. Med nec forms completed and CM
will update patient son with time and review IMM. Plan return to SNF today. CM will continue to follow for discharge planning needs.
Plan; return to SNF
Report to --[phone]
fax [phone]
[2023-11-27 10:30] LABS: Blood Urea Nitrogen 39 mg/dl (9-20); Carbon Dioxide 24 mmol/L (22-30); Chloride 110 mmol/L (98-107); Estimated Creatinine Clearance 56 ml/min; Glucose 157 mg/dl (70-99); Magnesium 1.9 mg/dl (1.6-2.3); Potassium 4.6 mmol/L (3.5-5.1); Sodium 137 mmol/L (135-145); eGFR > 60.00
[2023-11-27 11:39] LABS: Glucose - Point of Care 288 mg/dl (70-99)
--- NOTE | 2023-11-27 11:41 | W.PN.NEPH.PH ---
Today's Communication / Plan
-
Stable for discharge from renal standpoint
Assessment/Plan
-
Assessment:
Septic Shock from Pneumonic process
CLI-PVD s/p Diagnostic arteriogram, intravascular lithotripsy, drug coated balloon angioplasty, wound debridement and vacuum assisted closure on 11/19
Diarrhea
LENI on CKD III-baseline cr 1.2-1.3
Paroxysmal A-fib
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
CAD/[place]/CABG 2009
Chronic LBBB
DM-II
Chronic HFpEF
Spinal Stenosis
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
Chronic right lower extremity lymphedema
Hx CVA per CT head
Hx subdural hematoma after mechanical fall
Hx orthostatic hypotension/HTN
Anemia of chronic disease
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
phantom leg pain
HLD
Chronic pain syndrome secondary to spinal stenosis on chronic opiate patch
GERD/Hx GI bleed
Hx ulcerative colitis- azathioprine
Anxiety
Chronic ambulatory dysfunction with chronic foot and ankle deformities
Hypoalbuminemia
Plan:
A/w septic shock with PNA
CLI of right leg s/p angiogram 11/19
LENI-resolved, cr down to 1.1 baseline
non oliguric with chr zaragoza
renal u/s without significant findings
checked UA, low fena, keep zaragoza with h/o obstructive uropathy
wt improving but still with significant edema-cont bumex daily on discharge
BPs stable
pancytopenia-chronic was seen by heme before
avoid nephrotoxins
f/u with PCP , BMP next week
-
-
Date of Service: November 27, 2023
CC / HPI / ROS
-
Chief Complaint:
LENI
History of Present Illness:
creatinine improved to 1.1
hemodynamically stable
wt decreasing
Review of Systems:
off CBI for macrohematuria now resolved
Nonoliguric with zaragoza
right leg wound pump
no cp or sob
Labs
-
Labs:
WBC 5.2 10^3/uL (4.8-10.8) 11/27/23 09:04
RBC 2.92 10^6/uL (4.70-6.10) L 11/27/23 09:04
Hgb 8.7 g/dL (13.0-18.0) L 11/27/23 09:04
Hct 26.0 % (39.0-52.0) L 11/27/23 09:04
Plt Count 81 10^3/uL (130-400) L 11/27/23 09:04
Sodium 137 mmol/L (135-145) 11/27/23 09:04
Potassium 4.6 mmol/L (3.5-5.1) 11/27/23 09:04
Chloride 110 mmol/L (98-107) H 11/27/23 09:04
Carbon Dioxide 24 mmol/L (22-30) 11/27/23 09:04
BUN 39 mg/dl (9-20) H 11/27/23 09:04
Creatinine 1.1 mg/dL (0.7-1.3) 11/27/23 09:04
eGFR > 60.00 11/27/23 09:04
Glucose 157 mg/dl (70-99) H 11/27/23 09:04
Calcium 9.0 mg/dl (8.4-10.2) 11/27/23 09:04
Eze-Y-Qpeshubprhz Pept 14583 pg/ml 11/22/23 07:53
Albumin 2.7 g/dl (3.5-5.0) L 11/23/23 08:34
Physical Exam
-
Vital Signs:
Vital Signs
Temp Pulse Resp BP Pulse Ox
98.2 F 60 20 144/82 100
11/27/23 03:00 11/27/23 08:28 11/27/23 08:28 11/27/23 08:28 11/27/23 08:28
Cardiovascular:: Regular rate and rhythm
Respiratory:: Bilateral: CTA
Lung Excursion:: Normal
Abdomen:: Nontender and Soft
Extremity Edema:: +3: Right:
[2023-11-27 11:48] VITALS: BP 108/56
[2023-11-27] MEDS: NOVOLOG FLEXPEN-MODERATE RESISTANCE 5 UNITS SC (12:12)
--- NOTE | 2023-11-27 12:39 | WOUNDNOTE ---
RIGHT LATERAL LEG
--- NOTE | 2023-11-27 12:47 | WOUNDNOTE ---
[facility] RN NOTE: Patient planned for discharge back to [facility] today. Care completed with RNJeannie. Wound vac removed from right lower leg and packed with saline gauze as ordered. JEANINE wrap applied. Patient continues with scrotal edema and open areas on
posterior scrotum. Sacrum with .2x.2 open area. Care completed as ordered. Patient was positioned on right side lying position in effort to off-load sacrum. Air cushion applied between thighs. Confirmed air mattress at [facility] with Barb. Jeannie CAVAZOS will
take wound vac to dirty utility. Discharge orders updated/confirmed for facility. Will continue to follow as needed.
--- NOTE | 2023-11-27 12:58 | W.DCSUMMARY ---
Discharge Summary
Discharge Data
Date of Admission: 11/14/23
Date of Discharge: 11/27/23
-
Pending Results: No
Hospital Course
Principal Diagnosis:
Septic Shock due to community-acquired pneumonia
Peripheral artery disease (PAD)
Acute kidney injury (LENI) on chronic kidney disease (CKD) stage III, suspect LENI due to contrast nephropathy from angiogram
Gross hematuria on Eliquis
Acute on Chronic heart failure with preserved ejection fraction (HFpEF), resolved
Chronic Diagnoses:�
Chronic Cespedes catheter
Insulin-dependent diabetes, A1C 8.1 %. Prior to admission Lantus decreased from 15 units to 5 units HS, added Aspart 5 units AC
Ulcerative Colitis, Stable.
Spinal Stenosis
Chronic Pain Syndrome
Chronic Indwelling Cespedes
Paroxysmal Atrial Fibrillation, stable, continue Coreg and amiodarone and Eliquis for stroke risk reduction.
Consultations:�
Urology
Vascular surgery
Nephrology
Cardiology
Procedures:�
Diagnostic arteriogram, intravascular lithotripsy, drug coated balloon angioplasty, wound debridement and vacuum assisted closure
Clinical course:�
This is a 83y M with past medical history as stated above, who presented with fever and hypoxia.
Problem 1:
Septic Shock due to community-acquired pneumonia.
His chest x-ray was concerning for right upper lobe abnormality, and he was treated for pneumonia with ceftriaxone/Flagyl (total 10 days).
He was discharged with cefdinir and oral Flagyl for 2 more days following discharge to complete course.
His COVID/flu were negative, and MRSA screen negative.
He was requiring pressor initially but this was discontinued.
He was recommended to continue with soft and bite-size diet per speech evaluation.
Problem 2:
PAD.
The patient underwent Diagnostic arteriogram, intravascular lithotripsy, drug coated balloon angioplasty, wound debridement and vacuum assisted closure by vascular surgery.
He can continue wound VAC changes [facility]
He can continue to follow with vascular outpatient.
Problem 3:
LENI on CKD III, suspect LENI from contrast nephropathy 2/2 angiogram.
His LENI resolved.
He serum creatinine peaked at 2.0, and down trended to 1.1 on the day of discharge. His baseline creatinine is at 1.0.
His renal US was unrevealing.
With improvement in his serum creatinine, his prior to admission Bumex was resumed and now dosed at 0.5 mg daily (previously was every other day).
Problem 4:
Acute on Chronic HFpEF, resolved.
He can continue Bumex as stated above.
Problem 5:
Gross hematuria on Eliquis.
Gross hematuria resolved after CBI.
He can continue with Cespedes following discharge (he has chronic Cespedes prior to admission).
He was restarted with Eliquis, and gross hematuria did not recur, hence he can continue with his prior to admission Eliquis at 2.5 mg twice daily after discharge.
As for the rest of his medical problems, they were stable during his hospital stay.
Discharge Plan
-
Patient Disposition: Correction/SNF
Discharge Diagnosis/Procedures: Septic Shock due to community acquired pneumonia; peripheral artery disease status post diagnostic arteriogram/intravascular lithotripsy/drug coated balloon angioplasty/wound debridement and vacuum assisted closure;
acute kidney injury suspect from contrast nephropathy; Gross hematuria resolved following bladder irrigation; insulin dependent diabetes
Condition: Fair
Diet: 2 Gram Sodium, Diabetic, Carb Controlled and Restrict fluids to 48 oz
Additional Diets: soft and bite size diet
Activity: As tolerated
Driving Restrictions: No driving
Blood Work: BMP in 1 week
Wound Care: Wound Care Instructions:
R lateral leg: clean with saline, -Continue wound VAC changes on MWF with black foam to 125mmhg. If wound VAC begins to alarm, can be removed and replaced with wet-to-dry dressing, ABD, and Dong wrap with mild compression.
Upon discharge to a facility remove wound vac dressing, apply saline WTD until facility can obtain own wound vac.
*Place our hospital vac in soiled utility rm upon discharge.
R foot: mineral oil daily
buttocks and scrotum: barrier cream bid and prn soilage
Prevalon boot to R heel when in bed
air mattress with turning schedule
offloading cushion when sitting
Follow up with vascular group.
Activity Restrictions/Additional Instructions:
Wound Care Instructions R lateral leg: clean with saline, -Continue wound VAC changes on MWF with black foam to 125mmhg. If wound VAC begins to alarm, can be removed and replaced with wet-to-dry dressing, ABD, and Dong wrap with mild compression.
Upon discharge to a facility remove wound vac dressing, apply saline WTD until facility can obtain own wound vac.
R foot: mineral oil daily
Sacrum: Clean with normal saline or soap and water. Apply barrier ointment to open areas and cover with silicone border foam. Change Q 3 days and PRN if loose or for drainage.
Scrotum: calazime bid and prn soilage
Desenex powder to fungal appearing skin on thighs and buttocks
Air Mattress or Air overlay
Turning Schedule
Keep right heel off-loaded with pillow under calf
Referrals:
[facility] [Outside]
Haylee Bradford CRNP [Specified Professional Personl] - 12/24/23 4:00 pm (You have a follow up visit with Dr. Bermudez's Haylee RODRÍGUEZ, at the [place] office. Please call with questions. )
Jacob Cespedes III, MD [Active] - 12/07/23 11:00 am (Vascular follow up)
Marco Antonio Payne DO [Family Provider] -
Additional Discharge Medication Instructions: Continue 2 more days of oral antibiotics Cefdinir and Flagyl.
Your bumex is now dosed daily.
We have reduced your lantus from 15 units to 5 units at night.
We have added aspart 5 units with each meal.
Prescriptions:
New
metronidazole 500 mg Tablet
500 mg PO Q8H 2 Days Qty: 6 0RF
insulin aspart U-100 100 unit/mL (3 mL) Insulin Pen
5 unit SC AC Qty: 15 0RF
cefdinir 300 mg capsule
300 mg PO Q12H 2 Days Qty: 4 0RF
aspirin 81 mg Tablet,Delayed Release (Dr/Ec)
81 mg PO DAILY Qty: 1 0RF
Continued
pantoprazole 40 mg Tablet,Delayed Release (Dr/Ec)
40 mg PO DAILY
atorvastatin 80 MG tablet
80 mg PO DAILY@2029
Folbic 2.5-25-2 mg Tablet
1 tab PO DAILY
carvedilol 3.125 mg Tablet
3.125 mg PO BID Qty: 60 0RF
amiodarone 200 mg tablet
200 mg PO DAILY
multivitamin Tablet
1 tab PO DAILY
acetaminophen 325 mg Tablet
650 mg PO Q4H PRN (Reason: mild pain/fever>100.4)
bisacodyl 10 mg Suppository
10 mg [place] DAILY PRN (Reason: no BM or MOM/lactulose ineffective)
fluticasone propionate 50 mcg/actuation [place],Suspension
1 spray INTRANASAL QPM
insulin lispro [Humalog KwikPen Insulin] 100 unit/mL Insulin Pen
0 - 12 sliding scale dose SC TID@0730,1230,1730
Rx Instructions:
if 71-150= 0 units; 151-200= 2 units; 201-250= 4 units; 251-300= 6 units; 301-350= 8 units; 351-400= 10 units; >400=12 units, call MD
pregabalin [Lyrica] 75 mg Capsule
75 mg PO TID
lactulose 20 gram/30 mL Solution
20 g PO HS PRN (Reason: Constipation)
naloxone [Narcan] 4 mg/actuation [place],Non-Aerosol
4 mg INTRANASAL Q2M PRN (Reason: constricted pupils,loss of consc,slow breathing)
azathioprine 75 mg Tablet
75 mg PO DAILY
tamsulosin 0.4 mg Capsule
0.4 mg PO DAILY 30 Days Qty: 30 0RF
Eliquis 2.5 mg Tablet
2.5 mg PO BID Qty: 60 0RF
fentanyl 25 mcg/hr patch 72 hour
1 patch transdermal Q72H Qty: 1 0RF
Patient Comments:
qpm
patch on now from 11/10
ipratropium-albuterol 0.5 mg-3 mg(2.5 mg base)/3 mL Solution For Nebulization
3 ml INHALATION R Q6
guaifenesin [Tussin] 100 mg/5 mL Liquid
200 mg PO Q6H
bumetanide 0.5 mg tablet
0.5 mg PO DAILY Qty: 0 0RF
Changed
insulin glargine [Lantus U-100 Insulin] 100 unit/mL Solution
5 unit SC DAILY@2029 Qty: 0 0RF
Discontinued
mirtazapine 30 mg tablet
15 mg PO DAILY@2029
Discharge Orders:
Discharge Patient (As Directed); Ordered 11/27/23
Ordered By: Trinity Woodruff
Discharge Date and Time
Print Language: ARMENIAN
--- NOTE | 2023-11-27 13:31 | WOUNDNOTE ---
WOC RN NOTE: Updated 3 M [facility] and requested that Vac be placed in dirty utility room on .
== END 2023-11-27 14:51 | DRG 853 ==
LOC: 4 WEST ACU 06:28
PROVIDERS: Internal Medicine; Surgery Vascular Surgery; ADMITTING PHYSICIAN Hospitalist; ATTENDING PHYSICIAN Internal Medicine; CONSULT PHYSICIAN Internal Medicine; CONSULT PHYSICIAN Internal Medicine Cardiovascular Disease; CONSULT PHYSICIAN Specialist; EMERGENCY PHYSICIAN Emergency Medicine; FAMILY PHYSICIAN Student in an Organized Health Care Education/Training Program; OTHER PHYSICIAN Nurse Practitioner Acute Care
PROC: 04FK3ZZ Fragmentation of Right Femoral Artery, Percutaneous Approach (ICD-10-PCS; 2023-11-20)
PROC: 047K3Z1 Dilation of Right Femoral Artery using Drug-Coated Balloon, Percutaneous Approach (ICD-10-PCS; 2023-11-20)
PROC: 0JBN0ZZ Excision of Right Lower Leg Subcutaneous Tissue and Fascia, Open Approach (ICD-10-PCS; 2023-11-20)
DX: A41.9 Sepsis, unspecified organism (principal); I50.33 Acute on chronic diastolic (congestive) heart failure; J18.9 Pneumonia, unspecified organism; R65.21 Severe sepsis with septic shock; I13.0 Hypertensive heart and chronic kidney disease with heart failure and stage 1 through stage 4 chronic kidney disease, or unspecified chronic kidney disease; N17.9 Acute kidney failure, unspecified; K51.90 Ulcerative colitis, unspecified, without complications; D61.818 Other pancytopenia; D68.32 Hemorrhagic disorder due to extrinsic circulating anticoagulants; E87.20 Acidosis, unspecified; J98.11 Atelectasis; L97.218 Non-pressure chronic ulcer of right calf with other specified severity; I25.10 Atherosclerotic heart disease of native coronary artery without angina pectoris; I48.0 Paroxysmal atrial fibrillation; N18.30 Chronic kidney disease, stage 3 unspecified; E11.51 Type 2 diabetes mellitus with diabetic peripheral angiopathy without gangrene; E11.22 Type 2 diabetes mellitus with diabetic chronic kidney disease; G89.4 Chronic pain syndrome; I70.232 Atherosclerosis of native arteries of right leg with ulceration of calf; R31.0 Gross hematuria; Z79.01 Long term (current) use of anticoagulants
CPT/HCPCS: 11043; 11046; 71046; 74230; 75625; 75635; 75716; 76770; 76937; 80048; 80053; 81003; 81015; 81099; 82248; 82570; 82962; 83605; 83735; 83880; 84300; 85025; 85027; 86850; 86900; 86901; 87040; 87070; 87086; 87150; 87205; 87502; 87811; 92526; 92610; 92611; 93005; 93922; 93925; 94640; 94667; 94668; 94760; 96361; 96365; 96366; 96367; 97163; 97530; 99285; C1769; C1894; C2623; C9764; J7500; Q9967

== ENCOUNTER → 2023-12-03 10:03 | Outpatient (REF) | payer MEDICARE, OTHER, SELFPAY ==
[2023-12-03 10:49] LABS: % Basophils 0.6 % (0-2); % Eosinophils 4.6 % (0-6); % Immature Granulocytes 0.6 % (0-0.5); % Lymphocytes 14.6 % (20.5-51.1); % Monocytes 7.9 % (1.7-9.3); % Neutrophils 71.7 % (42.2-75.2); Absolute Eosinophils 0.2 10^3/uL (0-0.7); Absolute Lymphocytes 0.5 10^3/uL (1.2-3.4); Absolute Monocytes 0.3 10^3/uL (0.1-0.6); Absolute Neutrophils 2.4 10^3/uL (1.4-6.5); Hematocrit 24.4 % (39.0-52.0); Mean Corp Hgb Conc. 32.8 g/dL (33.0-37.0); Mean Corpuscular Hgb 30.5 pg (27.0-31.0); Mean Corpuscular Volume 93.1 fL (80.0-94.0); Nucleated Red Blood Cells % 0 % (-); Platelet Count 78 10^3/uL (130-400); Red Blood Cell Count 2.62 10^6/uL (4.70-6.10); Red Cell Dist. Width 23.2 % (11.5-14.5); White Blood Cell Count 3.3 10^3/uL (4.8-10.8)
[2023-12-03 11:17] LABS: Glycohemoglobin (HgbA1c) 7.6 % (4.0-5.6)
[2023-12-03 12:08] LABS: ALT (SGPT) 20 U/L (0-50); AST (SGOT) 40 U/L (17-59); Albumin 2.7 g/dl (3.5-5.0); Alkaline Phosphatase 74 U/L (38-126); Blood Urea Nitrogen 28 mg/dl (9-20); Calcium 8.9 mg/dl (8.4-10.2); Carbon Dioxide 27 mmol/L (22-30); Chloride 107 mmol/L (98-107); Glucose 215 mg/dl (70-99); Magnesium 1.8 mg/dl (1.6-2.3); Potassium 4.3 mmol/L (3.5-5.1); Sodium 139 mmol/L (135-145); Total Bilirubin 0.7 mg/dl (0.2-1.3); Total Protein 5.7 g/dl (6.3-8.2); eGFR > 60.00
== END ==
LOC: OLABN 10:03
PROVIDERS: ATTENDING PHYSICIAN Student in an Organized Health Care Education/Training Program
DX: N18.32 Chronic kidney disease, stage 3b (principal); I10 Essential (primary) hypertension; Z79.4 Long term (current) use of insulin
CPT/HCPCS: 36415; 80053; 83036; 83735; 85025

== ENCOUNTER → 2023-12-30 10:57 | Outpatient (REF) | payer MEDICARE, OTHER, SELFPAY | LOC: RAD 10:57 | PROVIDERS: ATTENDING PHYSICIAN Surgery Vascular Surgery; FAMILY PHYSICIAN Registered Nurse | DX: I77.9 Disorder of arteries and arterioles, unspecified (principal) | CPT/HCPCS: 93922; 93925 ==

== ENCOUNTER → 2024-02-18 09:26 | Outpatient (REF) | payer MEDICARE, OTHER, SELFPAY ==
[2024-02-18 11:08] LABS: % Basophils 0.8 % (0-2); % Eosinophils 6.3 % (0-6); % Lymphocytes 17.7 % (20.5-51.1); % Monocytes 10.2 % (1.7-9.3); Absolute Eosinophils 0.2 10^3/uL (0-0.7); Absolute Lymphocytes 0.5 10^3/uL (1.2-3.4); Absolute Monocytes 0.3 10^3/uL (0.1-0.6); Absolute Neutrophils 1.7 10^3/uL (1.4-6.5); Hematocrit 23.2 % (39.0-52.0); Hemoglobin 7.7 g/dL (13.0-18.0); INR 1.72; Mean Corp Hgb Conc. 33.2 g/dL (33.0-37.0); Mean Corpuscular Hgb 27.9 pg (27.0-31.0); Mean Corpuscular Volume 84.1 fL (80.0-94.0); Nucleated Red Blood Cells % 0 % (-); PT 20.3 Sec (11.4-14.6); Platelet Count 71 10^3/uL (130-400); Red Blood Cell Count 2.76 10^6/uL (4.70-6.10); Red Cell Dist. Width 17.4 % (11.5-14.5); White Blood Cell Count 2.5 10^3/uL (4.8-10.8)
[2024-02-18 11:51] LABS: ALT (SGPT) 26 U/L (0-50); AST (SGOT) 36 U/L (17-59); Albumin 3.1 g/dl (3.5-5.0); Alkaline Phosphatase 71 U/L (38-126); Blood Urea Nitrogen 30 mg/dl (9-20); Calcium 9.1 mg/dl (8.4-10.2); Carbon Dioxide 24 mmol/L (22-30); Chloride 104 mmol/L (98-107); Glucose 197 mg/dl (70-99); Potassium 4.2 mmol/L (3.5-5.1); Sodium 140 mmol/L (135-145); Total Bilirubin 1.3 mg/dl (0.2-1.3); eGFR > 60.00
== END ==
LOC: OLABN 09:26
PROVIDERS: ATTENDING PHYSICIAN Student in an Organized Health Care Education/Training Program
DX: R31.9 Hematuria, unspecified (principal)
CPT/HCPCS: 36415; 80053; 85025; 85610

== ENCOUNTER → 2024-03-09 09:32 | Outpatient (REF) | payer OTHER, MEDICARE, SELFPAY ==
[2024-03-09 11:41] LABS: % Basophils 0.8 % (0-2); % Eosinophils 5.1 % (0-6); % Immature Granulocytes 0.4 % (0-0.5); % Monocytes 12.9 % (1.7-9.3); % Neutrophils 64.8 % (42.2-75.2); Absolute Eosinophils 0.1 10^3/uL (0-0.7); Absolute Lymphocytes 0.4 10^3/uL (1.2-3.4); Absolute Monocytes 0.3 10^3/uL (0.1-0.6); Absolute Neutrophils 1.7 10^3/uL (1.4-6.5); Mean Corp Hgb Conc. 31.8 g/dL (33.0-37.0); Mean Corpuscular Volume 81.8 fL (80.0-94.0); Nucleated Red Blood Cells % 0 % (-); Red Blood Cell Count 2.69 10^6/uL (4.70-6.10); Red Cell Dist. Width 17.1 % (11.5-14.5); White Blood Cell Count 2.6 10^3/uL (4.8-10.8)
[2024-03-09 11:54] LABS: ALT (SGPT) 20 U/L (0-50); AST (SGOT) 28 U/L (17-59); Albumin 3.2 g/dl (3.5-5.0); Alkaline Phosphatase 72 U/L (38-126); Blood Urea Nitrogen 37 mg/dl (9-20); Calcium 9.2 mg/dl (8.4-10.2); Carbon Dioxide 23 mmol/L (22-30); Chloride 106 mmol/L (98-107); Glucose 99 mg/dl (70-99); Potassium 4.3 mmol/L (3.5-5.1); Sodium 139 mmol/L (135-145); Total Bilirubin 1.3 mg/dl (0.2-1.3); Total Protein 6.1 g/dl (6.3-8.2); eGFR > 60.00
[2024-03-09 11:58] LABS: Platelet Count 68 10^3/uL (130-400)
[2024-03-09 11:59] LABS: NT-proBNP 4560 pg/ml
== END ==
LOC: OLABN 09:32
PROVIDERS: ATTENDING PHYSICIAN Student in an Organized Health Care Education/Training Program
DX: R31.9 Hematuria, unspecified (principal); I10 Essential (primary) hypertension; I73.9 Peripheral vascular disease, unspecified; N18.32 Chronic kidney disease, stage 3b
CPT/HCPCS: 36415; 80053; 83880; 85025

== ENCOUNTER 2024-03-09 15:00 | Emergency (ER) | payer MEDICARE, OTHER, SELFPAY ==
[2024-03-09 15:03] VITALS: BP 110/56
[2024-03-09 15:48] LABS: ALT (SGPT) 19 U/L (0-50); APTT 41.5 Sec (23.4-35.0); AST (SGOT) 28 U/L (17-59); Albumin 3.4 g/dl (3.5-5.0); Alkaline Phosphatase 70 U/L (38-126); Blood Urea Nitrogen 35 mg/dl (9-20); Calcium 9.2 mg/dl (8.4-10.2); Carbon Dioxide 25 mmol/L (22-30); Chloride 105 mmol/L (98-107); Glucose 149 mg/dl (70-99); Potassium 4.4 mmol/L (3.5-5.1); Sodium 140 mmol/L (135-145); Total Bilirubin 1.2 mg/dl (0.2-1.3); Total Protein 6.4 g/dl (6.3-8.2); eGFR 54.51
[2024-03-09 15:54] LABS: % Basophils 0.7 % (0-2); % Eosinophils 3.9 % (0-6); % Immature Granulocytes 0.3 % (0-0.5); % Lymphocytes 10.4 % (20.5-51.1); % Monocytes 12.1 % (1.7-9.3); % Neutrophils 71.7 % (42.2-75.2); Absolute Eosinophils 0.1 10^3/uL (0-0.7); Absolute Lymphocytes 0.3 10^3/uL (1.2-3.4); Absolute Monocytes 0.4 10^3/uL (0.1-0.6); Absolute Neutrophils 2.1 10^3/uL (1.4-6.5); Hematocrit 23.5 % (39.0-52.0); Hemoglobin 7.6 g/dL (13.0-18.0); Mean Corp Hgb Conc. 31.8 g/dL (33.0-37.0); Mean Corpuscular Volume 81.7 fL (80.0-94.0); Nucleated Red Blood Cells % 0 % (-); Platelet Count 75 10^3/uL (130-400); Red Blood Cell Count 2.89 10^6/uL (4.70-6.10); Red Cell Dist. Width 17.2 % (11.5-14.5)
[2024-03-09 17:00] VITALS: BP 115/61
--- NOTE | 2024-03-09 17:02 | ED.GENMED ---
History of Present Illness
General
Chief Complaint: Abnormal Lab Value
Source: patient
Exam Limitations: none
Time Seen by Provider: 03/09/24 17:01
Nursing documentation reviewed up to this point in time: agreed with
History of Present Illness
History of Present Illness:
Patient is an 83-year-old female from [facility] sent for evaluation of low hemoglobin. Patient has a history of chronic kidney disease stage III chronic heart failure insulin-dependent diabetes ulcerative colitis chronic pain syndrome chronic
indwelling Cespedes paroxysmal A-fib on Eliquis, left AKA CAD PA.
Patient has no complaints.
Past History
Past History
ED Past Medical History: CAD, HTN, Hypercholesterolemia, NIDDM, PA and Other (Arthritis, ulcerative colitis, chronic renal insufficiency, GI bleed)
ED Past Surgical History: Cardiac
Patient has exhibited threatening behavior?: No
Social History
Tobacco: Non-smoker
Alcohol: None
Drug: None
Personal:
Living: with family
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
Review of Systems
Review of Systems
Allergies reviewed?: Yes
Other source history: family
All Other Systems: ROS reviewed and negative except as documented in HPI and ROS
Constitutional: Reports no symptoms; Denies fever, fatigue or chills
Respiratory: Reports no symptoms
Cardiac: Reports no symptoms
ABD/GI: Reports no symptoms
Musculoskeletal: Reports no symptoms
Skin: Reports no symptoms
Neurological: Reports no symptoms
Psychiatric: Reports no symptoms
Phy Exam
General Physical Exam
General Presentation: no apparent distress
General age: appears stated age
General Skin: warm, dry and pale
General Habitus: elderly
General Mental: alert
Cardiovascular Exam
Cardiovascular Exam: regular rate/rhythm, no murmur and normal peripheral pulses
Pulmonary Exam
Pulmonary Exam: lungs clear and no respiratory distress
Gastrointestinal Exam
Gastrointestinal Exam: non tender, soft and other (brown stool heme neg )
Neurological Exam
Neurological Exam: alert and oriented x3
Musculoskeletal Exam
Musculoskeletal Exam: full ROM and other (LEft AKA )
Skin Exam
Skin Exam: normal color and warm/dry
Psychiatric Exam
Psychiatric Exam: normal mood/affect
Course
Orders/Labs/Results
Orders:
Orders
03/09/24 15:21
Type+Screen Urgent
Complete Blood Count/With Diff Urgent
Comprehensive Metabolic Panel Urgent
Ferritin Urgent
Comment: ADD ON
Iron Urgent
Comment: ADD ON
PTT Urgent
Total Iron Binding Urgent
Comment: ADD ON
03/09/24 19:21
Add On- LAB Urgent
Tests Added?: iron , tibc and ferritin
Abnormal Lab Results
03/09/24
15:21
WBC 3.0 L 10^3/uL
(4.8-10.8)
RBC 2.89 L 10^6/uL
(4.70-6.10)
Hgb 7.6 L g/dL
(13.0-18.0)
Hct 23.5 L %
(39.0-52.0)
MCH 26.0 L pg
(27.0-31.0)
MCHC 31.8 L g/dL
(33.0-37.0)
RDW 17.2 H %
(11.5-14.5)
Plt Count 75 L 10^3/uL
(130-400)
Absolute Lymphs (auto) 0.3 L 10^3/uL
(1.2-3.4)
Lymphocytes % 10.4 L %
(20.5-51.1)
Monocytes % 12.1 H %
(1.7-9.3)
APTT 41.5 H Sec
(23.4-35.0)
BUN 35 H mg/dl
(9-20)
Glucose 149 H mg/dl
(70-99)
Iron 22 L ug/dl
(49-181)
Albumin 3.4 L g/dl
(3.5-5.0)
03/09/24 15:21
03/09/24 15:21
Vital Signs
Initial and Last Documented VS:
Initial Vital Signs
Temp Pulse Resp BP Pulse Ox
98.1 F 62 18 110/56 99
03/09/24 15:03 03/09/24 15:03 03/09/24 15:03 03/09/24 15:03 03/09/24 15:03
Last Documented Vital Signs
Temp Pulse Resp BP Pulse Ox
98.1 F 62 18 110/56 99
03/09/24 15:03 03/09/24 15:03 03/09/24 15:03 03/09/24 15:03 03/09/24 15:03
Counter Waitress/Waiter consulted with Physician
Counter Waitress/Waiter consulted with physician?: Yes
Name of Physician Consulted: Hubert
MDM/Problems Addressed
Differential Diagnosis Includes:
not limited to: anemia
MDM/Problems Addressed:
Patient is an 83-year-old male from custodial on [facility] with chronic medical conditions as documented above sent for low hemoglobin. Patient's hemoglobin today is 7.6 however he is chronically anemic in fact 7.6 is improved from his last
hemoglobin of 7.0. Patient has no complaints his vital signs are stable. He has brown stool heme-negative. Case reviewed with ED physician will DC back to custodial. I did add on iron studies.
*Pulse Oximetry
Patient hypoxic: no
*Critical Care Note
Total Time (30-74mins, 75-104mins- exclusive of procedures): Not Applicable
Data Reviewed
Review of Other/Old Records Reveals: Labs
ED Attending Note
-
Portions of this chart may have been created with voice recognition software.� Occasional wrong word or��sound alike� substitutions may have occurred due to the inherent limitations of voice recognition software.
Discharge Plan
Departure
Patient Disposition: Snf/SNF
Date of Disposition: 03/09/24
Time of Disposition: 19:30
Patient with high blood pressure during this ER visit?: No
Condition: Fair
Covid-19: Not Applicable
Discharge Problem:
Anemia
Prescriptions:
No Action
pantoprazole 40 mg Tablet,Delayed Release (Dr/Ec)
40 mg PO DAILY
atorvastatin 80 MG tablet
80 mg PO DAILY@2029
Folbic 2.5-25-2 mg Tablet
1 tab PO DAILY
carvedilol 3.125 mg Tablet
3.125 mg PO BID Qty: 60 0RF
amiodarone 200 mg tablet
200 mg PO DAILY
multivitamin Tablet
1 tab PO DAILY
acetaminophen 325 mg Tablet
650 mg PO Q4H PRN (Reason: mild pain/fever>100.4)
bisacodyl 10 mg Suppository
10 mg MD DAILY PRN (Reason: no BM or MOM/lactulose ineffective)
fluticasone propionate 50 mcg/actuation [place],Suspension
1 spray INTRANASAL QPM
insulin lispro [Humalog KwikPen Insulin] 100 unit/mL Insulin Pen
0 - 12 sliding scale dose SC TID@0730,1230,1730
Rx Instructions:
if 71-150= 0 units; 151-200= 2 units; 201-250= 4 units; 251-300= 6 units; 301-350= 8 units; 351-400= 10 units; >400=12 units, call MD
pregabalin [Lyrica] 75 mg Capsule
75 mg PO TID
lactulose 20 gram/30 mL Solution
20 g PO HS PRN (Reason: Constipation)
naloxone [Narcan] 4 mg/actuation [place],Non-Aerosol
4 mg INTRANASAL Q2M PRN (Reason: constricted pupils,loss of consc,slow breathing)
azathioprine 75 mg Tablet
75 mg PO DAILY
tamsulosin 0.4 mg Capsule
0.4 mg PO DAILY 30 Days Qty: 30 0RF
Eliquis 2.5 mg Tablet
2.5 mg PO BID Qty: 60 0RF
fentanyl 25 mcg/hr patch 72 hour
1 patch transdermal Q72H Qty: 1 0RF
Patient Comments:
qpm
patch on now from 11/10
ipratropium-albuterol 0.5 mg-3 mg(2.5 mg base)/3 mL Solution For Nebulization
3 ml INHALATION R Q6
guaifenesin [Tussin] 100 mg/5 mL Liquid
200 mg PO Q6H
metronidazole 500 mg Tablet
500 mg PO Q8H 2 Days Qty: 6 0RF
insulin aspart U-100 100 unit/mL (3 mL) Insulin Pen
5 unit SC AC Qty: 15 0RF
cefdinir 300 mg capsule
300 mg PO Q12H 2 Days Qty: 4 0RF
insulin glargine [Lantus U-100 Insulin] 100 unit/mL Solution
5 unit SC DAILY@2029 Qty: 0 0RF
bumetanide 0.5 mg tablet
0.5 mg PO DAILY Qty: 0 0RF
aspirin 81 mg Tablet,Delayed Release (Dr/Ec)
81 mg PO DAILY Qty: 1 0RF
Referrals:
Marco Antonio Payne DO [Family Provider] -
Activity Restrictions/Additional Instructions:
Patient's hemoglobin today was 7.6. Additional tests were added on including iron and ferritin .
please have physician follow-up on these further lab studies. It is recommended that you repeat the hemoglobin the next several days to 1 week.
Patient's stool was tested and negative for blood .
Return if any worsening of symptoms
Interventions
Interventions:
*Risk Screen - Suicide Last Done: 03/09/24 18:40
*General Assessment Last Done: 03/09/24 15:03
*Neglect/Abuse Screening Last Done: 03/09/24 18:40
ED- Fall Risk Assessment Last Done: 03/09/24 18:41
*ED COVID-19 Vaccine History Last Done: 03/09/24 18:40
Discharge Date and Time
Print Language: TAMAZIGHT
[2024-03-09 18:39] VITALS: BMI 28.2
[2024-03-09 19:00] VITALS: BP 120/58
[2024-03-09 19:53] LABS: Iron 22 ug/dl (49-181)
[2024-03-09 20:02] LABS: Percent Saturation 6 % (20-50); Total Iron Binding Capacity 343 ug/dl (261-462)
[2024-03-09 20:29] LABS: Ferritin 10.1 ng/ml (17.9-464.0)
== END 2024-03-09 21:14 ==
LOC: EMR 15:00
PROVIDERS: Student in an Organized Health Care Education/Training Program; EMERGENCY PHYSICIAN Emergency Medicine; FAMILY PHYSICIAN Student in an Organized Health Care Education/Training Program
DX: R79.89 Other specified abnormal findings of blood chemistry (principal); D64.9 Anemia, unspecified; E11.22 Type 2 diabetes mellitus with diabetic chronic kidney disease; E78.00 Pure hypercholesterolemia, unspecified; I25.10 Atherosclerotic heart disease of native coronary artery without angina pectoris; I48.0 Paroxysmal atrial fibrillation; N18.30 Chronic kidney disease, stage 3 unspecified; I11.0 Hypertensive heart disease with heart failure; I50.9 Heart failure, unspecified; M19.90 Unspecified osteoarthritis, unspecified site; K51.90 Ulcerative colitis, unspecified, without complications; G89.4 Chronic pain syndrome; I25.2 Old myocardial infarction; Z79.01 Long term (current) use of anticoagulants; Z79.4 Long term (current) use of insulin; Z89.612 Acquired absence of left leg above knee; Z88.2 Allergy status to sulfonamides; Z88.8 Allergy status to other drugs, medicaments and biological substances
CPT/HCPCS: 99283; 80053; 82728; 83540; 83550; 85025; 85730; 86850; 86900; 86901

== ENCOUNTER → 2024-03-14 14:43 | Outpatient (REF) | payer MEDICARE, OTHER, SELFPAY ==
[2024-03-14 18:31] LABS: Hemoglobin 6.8 g/dL (13.0-18.0); Mean Corp Hgb Conc. 32.4 g/dL (33.0-37.0); Mean Corpuscular Hgb 26.9 pg (27.0-31.0); Platelet Count 75 10^3/uL (130-400); Red Blood Cell Count 2.53 10^6/uL (4.70-6.10); Red Cell Dist. Width 17.5 % (11.5-14.5); White Blood Cell Count 2.8 10^3/uL (4.8-10.8)
== END ==
LOC: OLABN 14:43
PROVIDERS: ATTENDING PHYSICIAN Student in an Organized Health Care Education/Training Program
DX: D62 Acute posthemorrhagic anemia (principal)
CPT/HCPCS: 36415; 85027

== ENCOUNTER 2024-03-14 22:06 | Emergency (ER) | payer MEDICARE, OTHER, SELFPAY ==
[2024-03-14 22:08] VITALS: BP 113/66; BMI 32.3
[2024-03-14 22:09] VITALS: BP 113/66
[2024-03-14 22:29] LABS: % Basophils 0.6 % (0-2); % Eosinophils 4.4 % (0-6); % Immature Granulocytes 0.3 % (0-0.5); % Lymphocytes 12.8 % (20.5-51.1); % Monocytes 9.3 % (1.7-9.3); % Neutrophils 72.6 % (42.2-75.2); Absolute Eosinophils 0.1 10^3/uL (0-0.7); Absolute Lymphocytes 0.4 10^3/uL (1.2-3.4); Absolute Monocytes 0.3 10^3/uL (0.1-0.6); Absolute Neutrophils 2.3 10^3/uL (1.4-6.5); Hematocrit 22.4 % (39.0-52.0); Hemoglobin 7.1 g/dL (13.0-18.0); Mean Corp Hgb Conc. 31.7 g/dL (33.0-37.0); Mean Corpuscular Hgb 25.3 pg (27.0-31.0); Mean Corpuscular Volume 79.7 fL (80.0-94.0); Nucleated Red Blood Cells % 0 % (-); Platelet Count 96 10^3/uL (130-400); Red Blood Cell Count 2.81 10^6/uL (4.70-6.10); White Blood Cell Count 3.2 10^3/uL (4.8-10.8)
[2024-03-14 22:43] LABS: ALT (SGPT) 20 U/L (0-50); AST (SGOT) 27 U/L (17-59); Albumin 3.4 g/dl (3.5-5.0); Alkaline Phosphatase 65 U/L (38-126); Blood Urea Nitrogen 40 mg/dl (9-20); Calcium 9.3 mg/dl (8.4-10.2); Carbon Dioxide 25 mmol/L (22-30); Chloride 106 mmol/L (98-107); Estimated Creatinine Clearance 48 ml/min; Glucose 182 mg/dl (70-99); Potassium 4.2 mmol/L (3.5-5.1); Sodium 139 mmol/L (135-145); Total Bilirubin 1.2 mg/dl (0.2-1.3); Total Protein 6.5 g/dl (6.3-8.2); eGFR 54.51
[2024-03-14 23:00] VITALS: BP 126/73
--- NOTE | 2024-03-14 23:30 | ED.GENMED ---
History of Present Illness
General
Chief Complaint: Abnormal Lab Value
Source: patient and family (Son)
Exam Limitations: none
Time Seen by Provider: 03/14/24 22:54
History of Present Illness
History of Present Illness:
This is a 83 year old male that comes in with c/o abnormal labs. States that he had blood work done today and he was told that his Hgb was low. Son states that he was just here for the same thing and they said that his Hgb was not low enough to get
blood. State that he wishes we would do something. Patient states that he has had diarrhea. Denies any fever, chills, chest pain, SOB, abd pain, nausea, vomiting, headache, dizziness, urinary burning.
Past History
Past History
ED Past Medical History: Arrthythmia (Atrial fib), CAD, CHF, GERD, HTN, Hypercholesterolemia, NIDDM, SD, Psychiatric (Anxiety, ) and Other (Arthritis, ulcerative colitis, chronic renal insufficiency, GI bleed, Back pain, Dizziness, Subdural
hematoma, IBS, Anemia. Thrombocytopenia, )
ED Past Surgical History: Cardiac (Pacemaker, Bypass, Stents), Orthopedic (Bilateral ankle surgery. Left AKA, Left hip replacement, ), Tonsilectomy and Other (catracts, )
Patient has exhibited threatening behavior?: No
Social History
Tobacco: Non-smoker
Alcohol: None
Drug: None
Personal:
Living: shelter ([facility])
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
Review of Systems
Review of Systems
All Other Systems: ROS reviewed and negative except as documented in HPI and ROS
Constitutional: Reports no symptoms; Denies fever or chills
EENT: Reports no symptoms
Respiratory: Reports no symptoms; Denies cough or trouble breathing
Cardiac: Reports no symptoms; Denies chest pain
ABD/GI: Reports diarrhea; Denies abdominal pain, nausea or vomiting
: Reports other (Indwelling catheter)
Musculoskeletal: Reports no symptoms
Skin: Reports no symptoms
Neurological: Reports no symptoms; Denies dizzy or headache
Psychiatric: Reports no symptoms
Phy Exam
General Physical Exam
General Presentation: well appearing and no apparent distress
General age: appears stated age
General Skin: warm and dry
General Habitus: debilitated and elderly
General Mental: alert
General Hydration: appears well hydrated
ENT Exam
ENT Exam: TM's normal, pharynx normal and neck supple
Eye Exam
Eye Exam: EOMI
Cardiovascular Exam
Cardiovascular Exam: pacemaker
Pulmonary Exam
Pulmonary Exam: lungs clear, no respiratory distress, no rales, chest non tender, no crackles, no rhonchi, no wheezing and no cough
Gastrointestinal Exam
Gastrointestinal Exam: normal bowel sounds, non tender, soft, no organomegaly, no pulsatile mass, non distended and other (Stool brown hem negative)
Musculoskeletal Exam
Musculoskeletal Exam: edema (Chronic lymph edema of the right leg)
Skin Exam
Skin Exam: normal color, warm/dry and no petechia
Psychiatric Exam
Psychiatric Exam: normal mood/affect
Course
Orders/Labs/Results
Orders:
Orders
03/14/24 22:18
Type+Screen Urgent
Complete Blood Count/With Diff Urgent
Comprehensive Metabolic Panel Urgent
03/14/24 23:19
* Blood Bank Products Urgent
Blood Bank Products: *Packed RBC Leuko(PRBC's)
Quantity: 2
Transfuse Today: Yes
Reason: Anemia
IV Insert/Care/Rem.- Treatment PRN
Abnormal Lab Results
03/14/24
22:18
WBC 3.2 L 10^3/uL
(4.8-10.8)
RBC 2.81 L 10^6/uL
(4.70-6.10)
Hgb 7.1 L g/dL
(13.0-18.0)
Hct 22.4 L %
(39.0-52.0)
MCV 79.7 L fL
(80.0-94.0)
MCH 25.3 L pg
(27.0-31.0)
MCHC 31.7 L g/dL
(33.0-37.0)
RDW 17.0 H %
(11.5-14.5)
Plt Count 96 L D 10^3/uL
(130-400)
Absolute Lymphs (auto) 0.4 L 10^3/uL
(1.2-3.4)
Lymphocytes % 12.8 L %
(20.5-51.1)
BUN 40 H mg/dl
(9-20)
Glucose 182 H mg/dl
(70-99)
Albumin 3.4 L g/dl
(3.5-5.0)
Crossmatch IS Only See Detail
03/14/24 22:18
03/14/24 22:18
Leukopenia, H/H very low, Anemia. Thrombocytopenia, Dehydration. hyperglycemia,
Vital Signs
Initial and Last Documented VS:
Initial Vital Signs
BP
113/66
03/14/24 22:08
Last Documented Vital Signs
Temp Pulse Resp BP Pulse Ox
98 F 60 15 130/52 97
03/15/24 02:59 03/15/24 02:59 03/15/24 02:59 03/15/24 02:59 03/15/24 02:59
MDM/Problems Addressed
Differential Diagnosis Includes:
Chronic anemia.
MDM/Problems Addressed:
Patient is sent in with abnormal labs. Son states that he was just here a few days ago and they sent him back without doing anything. States that he wishes we would do something.
explained to patent and son that his Hgb is very low. Will give patent PRBC's and son is in agreement that the patient could then go back to the Long-Term.
Back into see patient. Patient has finished one unit of blood. Patient lungs are negative for any rails but audible exp wheezing noted. Will give patient a Duo neb.
Chronic conditions affecting care:
Anemia
Acute Exacerbation and/or Progression of Chronic Illness:
Anemia
*Pulse Oximetry
Patient hypoxic: no
*EKG
Interpreted by ED Provider?: NA
Rate: EKG- N/A
*Plaster Die Maker Interpretation
Rate: normal
Heart Rate: 61
Rhythm: ventricular paced
*Critical Care Note
Total Time (30-74mins, 75-104mins- exclusive of procedures): Not Applicable
ED Attending Note
-
Portions of this chart may have been created with voice recognition software.� Occasional wrong word or��sound alike� substitutions may have occurred due to the inherent limitations of voice recognition software.
Discharge Plan
Departure
Patient Disposition: Long-Term/SNF
Date of Disposition: 03/15/24
Time of Disposition: 03:05
Patient with high blood pressure during this ER visit?: Yes
Condition: Good
Covid-19: Not Applicable
Discharge Problem:
Chronic anemia
Instructions: BLOOD PRESSURE
Prescriptions:
No Action
pantoprazole 40 mg Tablet,Delayed Release (Dr/Ec)
40 mg PO DAILY
atorvastatin 80 MG tablet
80 mg PO DAILY@2029
Folbic 2.5-25-2 mg Tablet
1 tab PO DAILY
carvedilol 3.125 mg Tablet
3.125 mg PO BID Qty: 60 0RF
amiodarone 200 mg tablet
200 mg PO DAILY
multivitamin Tablet
1 tab PO DAILY
acetaminophen 325 mg Tablet
650 mg PO Q4H PRN (Reason: mild pain/fever>100.4)
bisacodyl 10 mg Suppository
10 mg [place] DAILY PRN (Reason: no BM or MOM/lactulose ineffective)
fluticasone propionate 50 mcg/actuation [place],Suspension
1 spray INTRANASAL QPM
insulin lispro [Humalog KwikPen Insulin] 100 unit/mL Insulin Pen
0 - 12 sliding scale dose [place] TID@0730,1230,1730
Rx Instructions:
if 71-150= 0 units; 151-200= 2 units; 201-250= 4 units; 251-300= 6 units; 301-350= 8 units; 351-400= 10 units; >400=12 units, call MD
pregabalin [Lyrica] 75 mg Capsule
75 mg PO TID
lactulose 20 gram/30 mL Solution
20 g PO HS PRN (Reason: Constipation)
naloxone [Narcan] 4 mg/actuation [place],Non-Aerosol
4 mg INTRANASAL Q2M PRN (Reason: constricted pupils,loss of consc,slow breathing)
azathioprine 75 mg Tablet
75 mg PO DAILY
tamsulosin 0.4 mg Capsule
0.4 mg PO DAILY 30 Days Qty: 30 0RF
Eliquis 2.5 mg Tablet
2.5 mg PO BID Qty: 60 0RF
fentanyl 25 mcg/hr patch 72 hour
1 patch transdermal Q72H Qty: 1 0RF
Patient Comments:
qpm
patch on now from 11/10
ipratropium-albuterol 0.5 mg-3 mg(2.5 mg base)/3 mL Solution For Nebulization
3 ml INHALATION R Q6
guaifenesin [Tussin] 100 mg/5 mL Liquid
200 mg PO Q6H
metronidazole 500 mg Tablet
500 mg PO Q8H 2 Days Qty: 6 0RF
insulin aspart U-100 100 unit/mL (3 mL) Insulin Pen
5 unit [place] AC Qty: 15 0RF
cefdinir 300 mg capsule
300 mg PO Q12H 2 Days Qty: 4 0RF
insulin glargine [Lantus U-100 Insulin] 100 unit/mL Solution
5 unit SC DAILY@2029 Qty: 0 0RF
bumetanide 0.5 mg tablet
0.5 mg PO DAILY Qty: 0 0RF
aspirin 81 mg Tablet,Delayed Release (Dr/Ec)
81 mg PO DAILY Qty: 1 0RF
Referrals:
Marco Antonio Payne DO [Family Provider] - Follow up in 2-3 days
Activity Restrictions/Additional Instructions:
As discussed, your Hbg here was 7.1. This is consistent with your Chronic anemia. Your stool was negative for blood. You have been given 2 units of PRBC's. Please follow up with the family doctor for recheck and further blood test. IF YOU HAVE ANY
SHORTNESS OF BREATH, OR YOU HAVE ANY OTHER CONCERNS PLEASE RETURN TO THE EMERGENCY ROM.
Interventions
Interventions:
*Risk Screen - Suicide Last Done: 03/14/24 22:10
*General Assessment Last Done: 03/14/24 22:12
*Neglect/Abuse Screening Last Done: 03/14/24 22:10
ED- Fall Risk Assessment Last Done: 03/15/24 01:43
*ED COVID-19 Vaccine History Last Done: 03/14/24 22:10
Discharge Date and Time
Print Language: BERMUDIAN
[2024-03-15] VITALS (15 sets, daily range): BP systolic 114–134; BP diastolic 52–72
== END 2024-03-15 06:30 ==
LOC: EMR 22:06
PROVIDERS: Emergency Medicine; EMERGENCY PHYSICIAN Emergency Medicine; FAMILY PHYSICIAN Student in an Organized Health Care Education/Training Program
DX: D64.9 Anemia, unspecified (principal); I48.91 Unspecified atrial fibrillation; I25.10 Atherosclerotic heart disease of native coronary artery without angina pectoris; I13.0 Hypertensive heart and chronic kidney disease with heart failure and stage 1 through stage 4 chronic kidney disease, or unspecified chronic kidney disease; I50.9 Heart failure, unspecified; E11.22 Type 2 diabetes mellitus with diabetic chronic kidney disease; N18.9 Chronic kidney disease, unspecified; I25.2 Old myocardial infarction; K51.90 Ulcerative colitis, unspecified, without complications; K21.9 Gastro-esophageal reflux disease without esophagitis; E78.00 Pure hypercholesterolemia, unspecified; E11.65 Type 2 diabetes mellitus with hyperglycemia; D72.819 Decreased white blood cell count, unspecified; M19.90 Unspecified osteoarthritis, unspecified site; Z89.612 Acquired absence of left leg above knee; Z95.0 Presence of cardiac pacemaker; Z95.5 Presence of coronary angioplasty implant and graft; Z96.642 Presence of left artificial hip joint
CPT/HCPCS: 99283; 80053; 85025; 86850; 86900; 86901; 86920; P9016

== ENCOUNTER → 2024-03-16 11:49 | Outpatient (REF) | payer MEDICARE, OTHER, SELFPAY ==
[2024-03-16 12:25] LABS: Hematocrit 26.8 % (39.0-52.0); Hemoglobin 8.5 g/dL (13.0-18.0); Mean Corp Hgb Conc. 31.7 g/dL (33.0-37.0); Mean Corpuscular Hgb 25.6 pg (27.0-31.0); Mean Corpuscular Volume 80.7 fL (80.0-94.0); Platelet Count 74 10^3/uL (130-400); Red Blood Cell Count 3.32 10^6/uL (4.70-6.10); Red Cell Dist. Width 17.3 % (11.5-14.5); White Blood Cell Count 2.8 10^3/uL (4.8-10.8)
[2024-03-16 12:36] LABS: HDL Cholesterol 50 mg/dl; LDL Cholesterol, Calculated 31 mg/dl; Total Cholesterol 88 mg/dl (50-199); Triglyceride 36 mg/dl (10-149); Very Low Density Lipoprotein 7 mg/dl (0-30)
== END ==
LOC: OLABN 11:49
PROVIDERS: ATTENDING PHYSICIAN Student in an Organized Health Care Education/Training Program
DX: E78.5 Hyperlipidemia, unspecified (principal); D62 Acute posthemorrhagic anemia
CPT/HCPCS: 36415; 80061; 85027

== ENCOUNTER → 2024-04-05 13:49 | Outpatient (REF) | payer MEDICARE, OTHER, SELFPAY | LOC: RAD 13:49 | PROVIDERS: ATTENDING PHYSICIAN Surgery Vascular Surgery | DX: I77.9 Disorder of arteries and arterioles, unspecified (principal) | CPT/HCPCS: 93922; 93925 ==

== ENCOUNTER 2024-05-04 17:16 | Inpatient (IN) | payer MEDICARE, OTHER, SELFPAY ==
[2024-05-04] VITALS (16 sets, daily range): BP systolic 80–160; BP diastolic 50–66; BMI 28.4; BMI 26.7
[2024-05-04] MEDS: TYLENOL 650 MG PO ×2 (15:13→23:28)
[2024-05-04] MEDS: NSS 500 IV (15:14)
--- NOTE | 2024-05-04 15:22 | ED.GENMED ---
History of Present Illness
General
Chief Complaint: Male Genito-Urinary Symptoms
Source: patient
Exam Limitations: none
Time Seen by Provider: 05/04/24 14:49
Nursing documentation reviewed up to this point in time: agreed with
History of Present Illness
History of Present Illness:
Patient presents to ED from [facility] secondary to increased lethargy with generalized weakness noted over the past 2 days. Upon arrival, patient is found to be febrile and complaining of upper extremity weakness. Denies coughing. Denies
sore throat. Denies headache. Denies chest pain. Denies nausea, vomiting, or diarrhea. Patient reports decreased appetite. In addition, patient presents with chronic indwelling Cespedes catheter, with cloudy appearance. Per spouse, patient has RLE
wound that is currently being treated and healing.
Past History
Past History
ED Past Medical History: Arrthythmia (Atrial fib), CAD, CHF, GERD, HTN, Hypercholesterolemia, NIDDM, AR, Psychiatric (Anxiety, ) and Other (Arthritis, ulcerative colitis, chronic renal insufficiency, GI bleed, Back pain, Dizziness, Subdural
hematoma, IBS, Anemia. Thrombocytopenia, )
ED Past Surgical History: Cardiac (Pacemaker, Bypass, Stents), Orthopedic (Bilateral ankle surgery. Left AKA, Left hip replacement, ), Tonsilectomy and Other (catracts, )
Patient has exhibited threatening behavior?: No
Social History
Tobacco: Non-smoker
Alcohol: None
Drug: None
Personal:
Living: penitentiary ([facility])
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
Review of Systems
Review of Systems
Allergies reviewed?: Yes
All Other Systems: ROS reviewed and negative except as documented in HPI and ROS
Constitutional: Reports fever
EENT: Reports no symptoms
Respiratory: Reports no symptoms; Denies cough or trouble breathing
Cardiac: Reports no symptoms
ABD/GI: Reports no symptoms; Denies nausea, vomiting or diarrhea
Musculoskeletal: Reports no symptoms
Skin: Reports no symptoms
Neurological: Reports weakness; Denies dizzy or headache
Phy Exam
Physical Exam
Physical Exam:
Physical Exam
General: mild distress, not acutely ill. febrile. weak appearing
Head: nc/at. eomi
Neck: supple. no meningeal signs.
Heart: s1/s2 regular rate and rhythm, no murmur. equal radial pulses.
Lungs: no acute respiratory distress. clear bilaterally
Abdomen: normal bowel sounds. not tender.
Neuro: alert and oriented. no focal neurological deficits
Skin: no rash
Psychiatric: well kept. interactive and cooperative
Extremities: left AKA. RLE: wound dressing noted over lateral aspect, without surrounding erythema/warmth.
Sepsis
Sepsis Screening
Sepsis Assessment: Severe Sepsis
Sepsis Screening: Lactate >2mmol/L and Hypotension
Sepsis Screen
Sepsis Screen: Severe Sepsis
Date: 05/05/24
Time: 12:18
Course
Orders/Labs/Results
Orders:
Orders
05/04/24 Dinner
1800 calorie (15 carb) Diabetic
At Your Request: Full Participation
05/04/24 15:03
0.9% Sodium Chloride 500 ml [Nss] 500 ml IV BOLUS
Acetaminophen [Tylenol] 650 mg PO NOW STA
05/04/24 15:12
COVID-19 Antigen Urgent
Source: Nasal Swab
Complete Blood Count/With Diff Urgent
Comprehensive Metabolic Panel Urgent
Lactic Acid Q4H
Comment: CANCEL 2nd LACTIC ACID IF 1st LACTIC ACID IS LESS THAN 2
Magnesium Urgent
Urinalysis Reflex To Culture Urgent
Date Specimen was Collected: 05/04/24
Time Specimen was Collected: 15:05
Urine Microscopic Reflex Cult Urgent
Blood Culture Q30M
RAKESH Source: Blood/Venous
Specimen Description:
Urine Culture Urgent
RAKESH Source: U
Specimen Description:
Date Specimen was Collected: 05/04/24
Time Specimen was Collected: 15:05
05/04/24 15:21
Blood Culture Q30M
RAKESH Source: Blood/Venous
Specimen Description:
05/04/24 15:46
0.9% Sodium Chloride 1000 ml [Nss] 1,000 ml IV BOLUS
CefTRIAXone [Rocephin] 1,000 mg IV NOW STA
05/04/24 16:02
CR Chest Portable - 1 View Urgent
Comment:
Reason For Exam: fever w hypoxia
Reason Study Needs to be Portable: Patient Unstable
05/04/24 16:37
Admit/Transfer Patient As Directed
Co-Sign Provider:
Level of Care: Inpatient admission
Assign to:: IMU- Intermediate Care
Physician / Group: Dr Mckeon
Diagnosis: Sepsis
Reason for Hospitalization: pte p/w sepsis due to uti
Expected length of stay greater than two midnights?: Yes
ELOS- Estimated Length of Stay in days: 2
I certify the patient meets the requirements for IP care: Yes
PRN Pain Medication Management As Directed
May give lesser potent ordered pain med per pt: Yes
preference::
Protocol:: Medication orders for pain may be administered in a
manner that supports deferring to patient preference
when the pt is:
- Requesting an ordered lesser potent pain medication.
Least to most potent pain medications are defined
as: acetaminophen < NSAID < tramadol < opioids
(morphine, oxycodone, hydromorphone).
- Requesting a lesser dose of the same medication IF
ORDERED.
- Requesting a less intrusive route of administration
if both routes are prescribed by the provider (PO <
IV).
05/04/24 16:39
Code Status As Directed
Resuscitation Status: Full Code
05/04/24 16:43
Dextrose 50%-Water [Dextrose 50% Syringe] 12.5 grams IV [id number] PRN
Glucagon [GlucaGen] 1 mg IM PRN PRN
Bedside Glucose Monitoring As Directed
Frequency: AC&HS
Additional Instructions:: Change to q6h if pt on TPN, tube feeding or not eating
05/04/24 16:44
CT Abd/pelvis Wo Iv Cont Routine
Comment:
Reason For Exam: fever sepsis
Metoprolol [Lopressor] 5 mg IV Q6HPRN PRN
05/04/24 16:49
HYDROmorphone [Dilaudid] 0.25 mg IV Q4HPRN PRN
05/04/24 17:00
Lactated Ringers [Lr] 1,000 ml IV 75 mls/hr
05/04/24 18:00
Piperacillin/Tazo 2.25 Gram [Zosyn] 2.25 grams in 50 ml IV Q6H
05/04/24 19:51
Acetaminophen [Tylenol] 650 mg PO Q4HPRN PRN
Ipratropium/Albuterol Sulfate [Duoneb] 3 ml INH R Q6HPRN PRN
05/04/24 19:51
Activity As Directed
Activity Level: Out of Bed-Early Mobility
Fentanyl Patch Confirmation BID@0700,1900
Intake/ Output As Directed
Frequency: Per unit guidelines
Vital Signs As Directed
Frequency: Per unit guidelines
05/04/24 20:00
Apixaban [Eliquis] 2.5 mg PO BID
FentaNYL 25 MCG/HR PATCH [Duragesic 25 Mcg/Hr Patch] 1 patch TRANSDERM Q72H
05/04/24 22:00
Atorvastatin [Lipitor] 80 mg PO HS
05/05/24 06:23
Glycohemoglobin (HgbA1c) IN AM
05/05/24 07:30
Insulin Aspart Corrective Mod [Novolog Flexpen-Moderate Resistance] See Protocol SC AC
05/05/24 08:00
Amiodarone [Pacerone] 200 mg PO DAILY
Aspirin Low Dose EC [Aspir Low (Enteric Coated)] 81 mg PO DAILY
Pantoprazole [Protonix] 20 mg PO DAILY
05/05/24 20:00
REMOVE fentaNYL PATCH [Remove Duragesic Patch] See Dose Instructions REMOVE Q72H
Abnormal Lab Results
05/04/24
15:12
RBC 3.33 L 10^6/uL
(4.70-6.10)
Hgb 8.4 L g/dL
(13.0-18.0)
Hct 25.1 L %
(39.0-52.0)
MCV 75.4 L fL
(80.0-94.0)
MCH 25.2 L pg
(27.0-31.0)
RDW 19.4 H %
(11.5-14.5)
Plt Count 57 L 10^3/uL
(130-400)
Abs Immat Gran (auto) 0.1 H 10^3/uL
(0-0.05)
Absolute Neuts (auto) 6.7 H 10^3/uL
(1.4-6.5)
Absolute Lymphs (auto) 0.1 L 10^3/uL
(1.2-3.4)
Immature Gran % 0.7 H %
(0-0.5)
Neutrophils % 89.4 H %
(42.2-75.2)
Lymphocytes % 1.1 L %
(20.5-51.1)
BUN 55 H mg/dl
(9-20)
Creatinine 1.6 H mg/dL
(0.7-1.3)
Glucose 148 H mg/dl
(70-99)
Lactic Acid 2.1 H mmol/L
(0.7-2.0)
Total Bilirubin 1.8 H mg/dl
(0.2-1.3)
AST 72 H U/L
(17-59)
Ur Occult Blood Reflex 3+ A
(Negative)
Urine Nitrite (Reflex) Positive A
(Negative)
Leukocyte Esterase Rfl 2+ A
(Negative)
Urine RBC 11-15 A /HPF
(0-2)
Urine WBC (Reflex) 50-60 A /HPF
(0-5)
Urine Bacteria (Reflex) Moderate A
(Negative)
05/04/24 15:12
05/04/24 15:12
Vital Signs
Initial and Last Documented VS:
Initial Vital Signs
Temp Pulse Resp BP Pulse Ox
101.8 F H 60 18 95/65 90
05/04/24 14:26 05/04/24 14:26 05/04/24 14:26 05/04/24 14:26 05/04/24 14:26
Last Documented Vital Signs
Temp Pulse Resp BP Pulse Ox
99 F 61 15 92/65 98
05/05/24 07:11 05/05/24 08:41 05/05/24 06:00 05/05/24 10:07 05/05/24 09:50
MDM/Problems Addressed
MDM/Problems Addressed:
History and exam consistent with sepsis, likely secondary to UTI. Patient found to be febrile and hypotensive. Will start IV fluid resuscitation. If there is no improvement, patient may need pressor support. Patient given Rocephin IV empirically.
Blood culture and urine culture pending.
Critical care statement: A total of 40 minutes of critical care time was provided for this patient. This includes management of unstable vital signs, evaluation of the patient at bedside, reviewing the patient's pertinent medical records, review of
old EKGs and review of pertinent medical records. This time with separate from time utilized to perform the aforementioned documented procedures
*Critical Care Note
Total Time (30-74mins, 75-104mins- exclusive of procedures): 40 min
ED Attending Note
-
Portions of this chart may have been created with voice recognition software.� Occasional wrong word or��sound alike� substitutions may have occurred due to the inherent limitations of voice recognition software.
Discharge Plan
Departure
Patient Disposition: Admit
Date of Disposition: 05/04/24
Time of Disposition: 16:01
Admit to: IMU
Presentation/result/management discussed w/ accepting MD/DO: Hospitalist
Discharge Problem:
Sepsis, Acute UTI
Interventions
Interventions:
*Risk Screen - Suicide Last Done: 05/04/24 14:26
*General Assessment Last Done: 05/04/24 14:26
*Neglect/Abuse Screening Last Done: 05/04/24 14:26
ED- Fall Risk Assessment Last Done: 05/04/24 14:26
*Nursing Disposition Last Done: 05/04/24 18:44
ED-Male Genitourinary Assessment Last Done: 05/04/24 14:26
Discharge Date and Time
Discharge Date/Time: 05/04/24 19:29
[2024-05-04 15:32] LABS: Urine Albumin Trace (Neg - Trace); Urine Bilirubin Negative (Negative); Urine Character Slightly Cloudy (Clear); Urine Color Yellow; Urine Glucose Negative (Negative); Urine Ketone Negative (Negative); Urine Leukocyte 2+ (Negative); Urine Nitrite Positive (Negative); Urine Occult Blood 3+ (Negative); Urine Urobilinogen Negative (Neg - 1+)
[2024-05-04 15:42] LABS: Lactic Acid 2.1 mmol/L (0.7-2.0)
[2024-05-04 15:43] LABS: ALT (SGPT) 50 U/L (0-50); AST (SGOT) 72 U/L (17-59); Albumin 3.5 g/dl (3.5-5.0); Alkaline Phosphatase 57 U/L (38-126); Blood Urea Nitrogen 55 mg/dl (9-20); Calcium 9.1 mg/dl (8.4-10.2); Carbon Dioxide 28 mmol/L (22-30); Chloride 100 mmol/L (98-107); Estimated Creatinine Clearance 33 ml/min; Glucose 148 mg/dl (70-99); Magnesium 1.6 mg/dl (1.6-2.3); Potassium 3.6 mmol/L (3.5-5.1); Sodium 139 mmol/L (135-145); Total Bilirubin 1.8 mg/dl (0.2-1.3); Total Protein 6.5 g/dl (6.3-8.2); eGFR 42.49
[2024-05-04 15:45] LABS: COVID-19 Antigen Negative (Negative)
[2024-05-04 15:47] LABS: % Basophils 0.3 % (0-2); % Immature Granulocytes 0.7 % (0-0.5); % Lymphocytes 1.1 % (20.5-51.1); % Monocytes 8.5 % (1.7-9.3); % Neutrophils 89.4 % (42.2-75.2); Absolute Immature Granulocytes 0.1 10^3/uL (0-0.05); Absolute Lymphocytes 0.1 10^3/uL (1.2-3.4); Absolute Monocytes 0.6 10^3/uL (0.1-0.6); Absolute Neutrophils 6.7 10^3/uL (1.4-6.5); Hematocrit 25.1 % (39.0-52.0); Hemoglobin 8.4 g/dL (13.0-18.0); Mean Corp Hgb Conc. 33.5 g/dL (33.0-37.0); Mean Corpuscular Hgb 25.2 pg (27.0-31.0); Mean Corpuscular Volume 75.4 fL (80.0-94.0); Nucleated Red Blood Cells % 0 % (-); Platelet Count 57 10^3/uL (130-400); Red Blood Cell Count 3.33 10^6/uL (4.70-6.10); Red Cell Dist. Width 19.4 % (11.5-14.5); White Blood Cell Count 7.4 10^3/uL (4.8-10.8)
[2024-05-04] MEDS: NSS 1000 IV (15:49)
[2024-05-04] MEDS: ROCEPHIN 1000 MG IV (15:50)
[2024-05-04 15:53] LABS: Urine Amorphous Seen; Urine Bacteria Moderate (Negative); Urine Squamous Cell 0-2 /LPF (Few); Urine Triple Phosphate Crystal Present; Urine White Cell 50-60 /HPF (0-5)
--- NOTE | 2024-05-04 16:07 | HPS.HSE ---
Family Physician
-
Family Physician: Marco Antonio Payne,
Chief Complaint
-
Fever
History of Present Illness
Patient 82 years old male with history of chronic Cespedes catheter for urinary retention, left AKA, CAD, A-fib on anticoagulation, CHF, ulcerative colitis, chronic lymphedema, CKD, hypertension, anemia, cognitive deficits, pancytopenia, presented to
the hospital with fever. Patient tells me that he has not felt well for the last 2 days with generalized malaise and lethargy and having subjective fevers. He also complains of very weak and has upper extremities both sides. He does have a
chronic indwelling Cespedes catheter with cloudy appearance of urine. He denies any worsening cough or shortness of breath. Denies nausea vomiting or diarrhea although reports some loose stools at times. Denies abdominal pain. Does have a right
lower extremity wound that is being treated appropriately as outpatient. In the ED he was noted to have fever 101.8 Fahrenheit with lactic acid of 2.1 and blood pressure 80/60. He was given IV fluids and blood pressure improved to 109/55. UA
abnormal. He was given antibiotics. He was referred to hospitalist for further evaluation.
Medical History
Past Medical History
Past Medical History: Reports Other
Additional Past Medical History:
ASCVD
Paroxysmal Atrial Fibrillation
Ulcerative Colitis
DM-II
Chronic HFpEF
Chronic LE Lymphedema
CKD III
Hypertension
GERD
Bilateral Ankle Deformity (Acquired)
Past Surgical History: Reports Other
Additional Past Surgical History:
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
CABG x 4
PTCA with Stent x 2
DCCV
T&A
L EDILBERTO
Social History
Tobacco: Non-smoker
Alcohol: Occasional
Drug: None
Personal:
Living: [facility] ([facility])
Employment: Retired
Family History
Family History: Not pertinent
Allergies / Home Medications
Allergies reflects when Allergies were last updated in [facility].
Home Medications with original date entered in [facility]
Allergy/Medication List:
Allergies
Allergy/AdvReac Type Severity Reaction Status Date / Time
Sulfa (Sulfonamide Allergy Hives Verified 05/04/24 14:45
Antibiotics)
sulfasalazine Allergy mother Verified 05/04/24 14:45
states
hives
Home Medications
atorvastatin 80 mg tablet 80 mg PO DAILY@2030 High Cholesterol 03/30/23
folic acid-vit B6-vit B12 2.5 mg-25 mg-2 mg tablet (Folbic) 1 tab PO DAILY Supplement 04/16/23
carvedilol 3.125 mg tablet 3.125 mg PO BID #60 tabs 04/17/23
amiodarone 200 mg tablet 200 mg PO DAILY Arrhythmia 05/04/23
acetaminophen 325 mg tablet 650 mg PO Q4HPRN PRN mild pain/fever>100.4 06/22/23
bisacodyl 10 mg rectal suppository 10 mg VA DAILYPRN PRN 3 days no bm, lactulose ineffective 06/22/23
fluticasone propionate 50 mcg/actuation nasal spray,suspension 1 spray intranasal QPM Allergies 06/22/23
insulin lispro 100 unit/mL subcutaneous pen (Humalog KwikPen (U-100) Insulin) 0 - 12 sliding scale dose SC TID@0730,1230,1730 Diabetes 06/22/23
lactulose 20 gram/30 mL oral solution 20 g PO HSPRN PRN Constipation 06/22/23
naloxone 4 mg/actuation nasal spray (Narcan) 4 mg intranasal DAILYPRN PRN opioid overdose 06/22/23
pregabalin 75 mg capsule (Lyrica) 75 mg PO TID Pain 06/22/23
azathioprine 75 mg tablet 75 mg PO DAILY ulcerative colitis 09/14/23
apixaban 2.5 mg tablet (Eliquis) 2.5 mg PO BID #60 tabs 09/23/23
fentanyl 25 mcg/hr transdermal patch 1 patch transdermal Q72H Pain #1 ea 09/23/23
tamsulosin 0.4 mg capsule 0.4 mg PO DAILY 30 days #30 caps 09/23/23
ipratropium 0.5 mg-albuterol 3 mg (2.5 mg base)/3 mL nebulization soln 3 ml inhalation R BID Lung/Breathing Issues 11/14/23
aspirin 81 mg tablet,delayed release 81 mg PO DAILY #1 tab 11/27/23
bumetanide 0.5 mg tablet 0.5 mg PO DAILY Fluid Retention/Swelling #0 tabs 11/27/23
insulin glargine 100 unit/mL subcutaneous solution (Lantus U-100 Insulin) 5 unit (0.05 mL) SC DAILY@2030 Diabetes #0 mL 11/27/23
cholestyramine (with sugar) 4 gram powder for susp in a packet (Questran) 4 g PO DAILY 05/04/24
diphenoxylate-atropine 2.5 mg-0.025 mg tablet 1 tab PO DAILYPRN PRN diarrhea 05/04/24
insulin lispro 100 unit/mL subcutaneous pen (Humalog KwikPen (U-100) Insulin) 5 unit SC TID 05/04/24
ipratropium 0.5 mg-albuterol 3 mg (2.5 mg base)/3 mL nebulization soln 3 ml inhalation R Q6HPRN PRN cough 05/04/24
loperamide 2 mg tablet 2 mg PO Q6HPRN PRN diarrhea 05/04/24
metolazone 2.5 mg tablet 2.5 mg PO DAILY 05/04/24
mineral oil 1 applic topical DAILY right foot 05/04/24
pantoprazole 20 mg tablet,delayed release 20 mg PO DAILY 05/04/24
therapeutic multivitamin 1 tab PO DAILY 05/04/24
Review of Systems
-
A 12 point ROS was completed and negative except as noted: Yes
Physical Exam
Vital Signs
Vital Signs
Temp Pulse Resp BP Pulse Ox
99.8 F 60 16 106/53 98
05/04/24 16:00 05/04/24 16:00 05/04/24 16:00 05/04/24 16:00 05/04/24 16:00
Physical exam:
General: Acutely ill. Moderate toxic appearance.
HEENT: Normocephalic, Atraumatic and Moist Mucous Membranes
Respiratory: Clear to Auscultation; Negative Wheezes, Rales or Rhonchi
Cardiac: Regular Rhythm and S1/S2
GI: Soft, Nontender and Nondistended
Musculoskeletal: Left AKA. No Clubbing, No Cyanosis and No Edema
Neuro: Awake, Alert and Oriented
Psych: Calm
Physical Exam
General: Other
Laboratory Results
-
05/04/24 15:12
05/04/24 15:12
Laboratory Results
Lactic Acid 2.1 mmol/L (0.7-2.0) H 05/04/24 15:12
Total Bilirubin 1.8 mg/dl (0.2-1.3) H 05/04/24 15:12
AST 72 U/L (17-59) H 05/04/24 15:12
ALT 50 U/L (0-50) 05/04/24 15:12
Alkaline Phosphatase 57 U/L (38-126) 05/04/24 15:12
Impression/Plan
-
IMPRESSION:
Patient 83 years old male with multiple comorbidities came into the hospital with fever and lactic acidosis most likely related to sepsis due to catheter associated urinary tract infection. Patient increased risk of morbidity mortality due to his
acute illness and multiple comorbidities.
PLAN:
Sepsis due to catheter associated urinary tract infection:
Sepsis due to CAUTI
Evidence of sepsis with toxic appearance, fever more than 38.3 Celsius, tachycardia >90, tachypnea >20, and source of infection uti.
Lactic acid of 2.1
Follow-up blood cultures
Follow-up urine culture
U/A positive nitrites, positive blood, 11-15 RBCs, positive leukocyte esterase, 50-60 pyuria WBC and moderate urine bacteria
Chest x-ray pending
Given IV Rocephin in the ED
Continue on broad-spectrum antibiotics of Zosyn due to Cespedes and risk of MDR organism
Obtain CT of the abdomen without contrast
Continue IV fluids with lactated [place]
Continue monitor WBC count and temperature curve.
Pressors if blood pressure drops despite IV fluid resuscitation-at the moment appears to be responding to fluid.
Discussed at lenght with family at bedside in the ED.
Hypotension:
Due to sepsis
IV fluids and hold antihypertensives
LENI on CKD:
Creatinine 1.6 today
Creatinine 1.3 on 03/08
Avoid nephrotoxic
Monitor renal function
Obtain CT of the abdomen
Paroxysmal atrial fibrillation:
Hold rate control due to hypotension
Will use IV Lopressor as needed
Continue antiarrhythmic, amiodarone
Continue anticoagulation, Eliquis
Diabetes mellitus type 2:
Hold long-acting and short acting for now and resume depending on how his blood sugars do.
Continue insulin sliding scale
Hyperlipidemia:
Continue statin
Chronic HFpEF:
Hold diuretics
Monitor volume status
CAD/PVD/CVA:
Continue anticoagulant and anti-ischemic regimen
Chronic pain syndrome/spinal stenosis/chronic narcotics dependence:
Continue fentanyl patch
IV Dilaudid as needed for now
History of ulcerative colitis/GERD/GI bleed:
Monitor GI symptoms
Chronic thrombocytopenia:
Monitor platelet count and signs of bleeding
DVT prophylaxis:
Eliquis
CODE STATUS:
Full code
Total Critical Care Time__45__minutes. I was immediately available to the patient and staff. I personally examined, reviewed labs, diagnostic images/reports, interpretations, treatment plans, discussed patient care with other providers and family
or caregivers (if patient is unable to make decisions), entered orders as appropriate and documented the medical record.
[2024-05-04] MEDS: LR 1000 IV (18:31)
--- NOTE | 2024-05-04 18:36 | EDRN ---
SBAR to Niki SOMMERS.
[2024-05-04 20:04] LABS: Glucose - Point of Care 132 mg/dl (70-99)
[2024-05-04] MEDS: DURAGESIC 25 MCG/HR PATCH 1 PATCH TRANSDERM (20:37)
[2024-05-04] MEDS: LIPITOR 80 MG PO (20:51)
[2024-05-04] MEDS: ELIQUIS 2.5 MG PO (20:51)
[2024-05-04] MEDS: ZOSYN 50 IV (21:48)
[2024-05-04 23:33] LABS: Lactic Acid 1.5 mmol/L (0.7-2.0)
--- NOTE | 2024-05-04 23:41 | PTCARENOTE ---
Admitted pt. aaox3, pleasant, TUOLUMNE. Apaced, 1st degree, bbb, prolonged QT. Remains on 2LNC, HOLLOWAY, orthopneic. Zaragoza in place, still the pt's original zaragoza, it was not replaced. Draining yellow, cloudy, zaragoza wipes done. Q2T. LR running. Took pills
with water, no issues. RLE chronic wound, dressing changed, wound team consulted. St2 on sacrum, covered. Tylenol for pain in BUE. Pt incontinent, one episode watery diarrhea, will monitor that. No other issues at this time.
[2024-05-05] VITALS (12 sets, daily range): BP systolic 92–126; BP diastolic 49–87; BMI 26.9
[2024-05-05] MEDS: LR 1000 IV ×3 (00:55→20:48)
[2024-05-05] MEDS: ZOSYN 50 IV ×4 (05:51→20:49)
[2024-05-05 06:44] LABS: Hematocrit 26.3 % (39.0-52.0); Hemoglobin 8.5 g/dL (13.0-18.0); Mean Corp Hgb Conc. 32.3 g/dL (33.0-37.0); Mean Corpuscular Hgb 24.9 pg (27.0-31.0); Mean Corpuscular Volume 76.9 fL (80.0-94.0); Platelet Count 45 10^3/uL (130-400); Red Blood Cell Count 3.42 10^6/uL (4.70-6.10); Red Cell Dist. Width 19.6 % (11.5-14.5); White Blood Cell Count 5.9 10^3/uL (4.8-10.8)
[2024-05-05 07:06] LABS: Blood Urea Nitrogen 52 mg/dl (9-20); Calcium 8.9 mg/dl (8.4-10.2); Carbon Dioxide 25 mmol/L (22-30); Chloride 103 mmol/L (98-107); Estimated Creatinine Clearance 40 ml/min; Glucose 96 mg/dl (70-99); Magnesium 1.6 mg/dl (1.6-2.3); Potassium 3.6 mmol/L (3.5-5.1); Sodium 139 mmol/L (135-145); eGFR 54.51
[2024-05-05 07:26] LABS: Glucose - Point of Care 104 mg/dl (70-99)
[2024-05-05] MEDS: NOVOLOG FLEXPEN-MODERATE RESISTANCE SC (08:39)
[2024-05-05] MEDS: ELIQUIS 2.5 MG PO ×2 (08:41→20:44)
[2024-05-05] MEDS: PROTONIX 20 MG PO (08:41)
[2024-05-05] MEDS: PACERONE 200 MG PO (08:41)
[2024-05-05] MEDS: ASPIR LOW (ENTERIC COATED) 81 MG PO (08:41)
--- NOTE | 2024-05-05 09:23 | W.PN.HOSP.TC ---
Today's Communication/Plan
-
IV antibiotics. IVF.
Assessment / Plan
Assessment / Plan
Physical exam:
General: Acutely ill. Less toxic appearance.
HEENT: Normocephalic, Atraumatic and Moist Mucous Membranes
Respiratory: Clear to Auscultation; Negative Wheezes, Rales or Rhonchi
Cardiac: Regular Rhythm and S1/S2
GI: Soft, Nontender and Nondistended
Musculoskeletal: Left AKA. No Clubbing, No Cyanosis and No Edema. Remains with significant amount of weakness in upper extremities.
Neuro: Awake, Alert and Oriented
Psych: Calm
A/P:
Sepsis due to catheter associated urinary tract infection and bacteremia:
Continue IV fluids but decrease rate
Continue IV antibiotics, IV Zosyn. Will add IV vancomycin until cultures identified.
Seen CT scan of the abdomen and no obstruction urinary tract but some concerns raised about cholecystitis. He does not have abdominal pain nor he has any signs consistent with cholecystitis but will have surgery to see to confirm. Discussed with
surgery today via [place] text.
Follow-up blood cultures
Exchange Cespedes catheter today
Bandemia 20% today
PT OT eval
Upper extremity weakness:
This could be all related to overall infection but due to concerns of cervical myelopathy I will order a cervical MRI if pacemaker compatible.
Hypotension:
Due to sepsis but improving
IV fluids and hold antihypertensives
LENI on CKD:
Creatinine 1.3 today. Yesterday 1.6
Creatinine 1.3 on 03/08
Avoid nephrotoxic
Monitor renal function
Obtained CT of the abdomen
Paroxysmal atrial fibrillation:
Resume rate control, carvedilol 3.125 mg twice a day with holding parameters
Will use IV Lopressor as needed
Continue antiarrhythmic, amiodarone 200 mg daily
Continue anticoagulation, Eliquis 2.5 mg twice a day
Diabetes mellitus type 2:
Hold long-acting and short acting for now since blood sugars remain in the low side.
Continue insulin sliding scale
Hyperlipidemia:
Continue statin
Chronic HFpEF:
Hold diuretics
Monitor volume status
CAD/PVD/CVA:
Continue anticoagulant and anti-ischemic regimen
Chronic pain syndrome/spinal stenosis/chronic narcotics dependence:
Continue fentanyl patch
IV Dilaudid as needed for now
History of ulcerative colitis/GERD/GI bleed:
Monitor GI symptoms
Chronic thrombocytopenia:
Monitor platelet count and signs of bleeding
Platelet count 45 today
DVT prophylaxis:
Eliquis
CODE STATUS:
Full code
Total time spent on today's encounter was 52 minutes which included time spent in counseling the patient/family regarding diagnosis and treatment plan as listed above, goals of care, and symptom management. Case was discussed with nursing staff,
specialists, and care coordinators/case management. All labs and imaging personally reviewed by me. Remainder the time spent in detailed review of previous records, lab data, imaging, and other medical provider documentation.
Anticipated Discharge: > 48 hours
Subjective/Interval History
-
Date of Service: May 05, 2024
Patient denies abdominal pain nausea or vomiting. He still have both upper extremity weakness. I asked if he has neck pain and he did say that he has some discomfort.
Objective Data
-
Labs:
Laboratory Results
05/05/24
06:23
WBC 5.9
Hgb 8.5 L
Hct 26.3 L
Plt Count 45 L D
Sodium 139
Potassium 3.6
Chloride 103
Carbon Dioxide 25
BUN 52 H
Creatinine 1.3
Glucose 96
Calcium 8.9
Vital Signs:
Vital Signs
Temp Pulse Resp BP Pulse Ox
99 F 61 15 116/63 97
05/05/24 07:11 05/05/24 08:41 05/05/24 06:00 05/05/24 08:41 05/05/24 04:00
I&O
05/04/24 05/05/24 05/06/24
06:59 06:59 06:59
Output Total 775 / 775
Balance -775 / -775
[2024-05-05] MEDS: COREG PO (10:07)
[2024-05-05 10:38] LABS: Absolute Neutrophils -Man Diff 5.3 10^3/uL (1.4-6.5); Band Neutrophils 20 % (0-3); Metamyelocytes 2 % (-); Monocytes 7 % (2-9)
--- NOTE | 2024-05-05 10:38 | WOUNDNOTE ---
R THIGH (POSTERIOR UPPER)
[2024-05-05 10:39] LABS: Acanthocytes 1+; Anisocytosis 1+; Hypochromasia 2+; Ovalocytes 1+; Poikilocytosis 1+
[2024-05-05 10:40] LABS: Target Cells 1+
--- NOTE | 2024-05-05 10:40 | WOUNDNOTE ---
[facility] RN note: Patient admitted with sepsis, UTI. Patient resides at [facility].
See H&P for complete history.
PMH: Cespedes for urinary retention, L AKA 05/2023, RLE angioplasty and debridement or R lateral calf wound 11/30/23. Patient follows vascular, last appointment 04/08/24.
Wound Location and type/assessment: Patient admitted with: R lateral calf full thickness wound to subcutaneous layer vs healing deeper wound, pink, moderate ss drainage. No erythema. Patient wear knee high Tubigrip. +R pedal pulse heard via
portable Doppler as per TOOTIE Valderrama. Toes warm. +1 RLE edema. R heel stage 1 pressure injury. Stage 2 lower sacral pressure injury.
Appetite: good.
Pressure redistribution devices in place: Centrella Max air bed. Patient cannot turn self in bed.
Plan: RLE dressing changed. Patient incontinent of large loose brown stool. Linen changed, nedra care given and patient turned to R semi side lying position. RLE elevated on his low profile [employer] air chair cushion.
Will confirm orders with Dr. Mckeon and discussed with TOOTIE Valderrama.
Care plan to be updated and will follow as needed. Patient to follow up with vascular.
[2024-05-05 10:41] LABS: Segmented Neutrophils 71 % (42-75)
[2024-05-05 10:42] LABS: Normal RBC Morphology No; Platelets Checked Yes; Total Cells Counted 100
--- NOTE | 2024-05-05 11:04 | CON.GS ---
Consultation
-
Reason for Consultation: Gallstones
Medical History
-
Chief Complaint: Bilateral upper extremity weakness
History of Present Illness:
Patient is an 83-year-old male with numerous medical comorbidities who resides at [facility]. He was transferred to [facility] emergency department for evaluation on 05/04/2024 secondary to progressive
bilateral upper extremity weakness to the point that he was unable to feed himself with fatigue and lethargy. Patient also reports complaints of chronic diarrhea, anorexia/decreased appetite but no acute changes. Upon evaluation he was found to be
febrile and his chronic indwelling Cespedes catheter had a cloudy appearance.
General surgery consultation requested after CT imaging was performed for sepsis and catheter associated urinary tract infection identified gallstones and possible wall thickening/pericholecystic fluid.
Patient seen and evaluated. His is at bedside. At the moment he denies any current or recent abdominal pain. He ate pancakes for breakfast without nausea, vomiting or abdominal pain. His appetite has chronically been poor. With his
progressive upper extremity weakness he has had to be fed but states he is tolerating dietary intake. Chronic loose stools which she complains have been present for months.
Past Medical History
Past Medical History: Other (CAD, A-fib on Eliquis, history of CHF, ulcerative colitis, chronic lymphedema, CKD, hypertension, anemia, chronic indwelling Cespedes catheter, GERD)
Past Surgical History: Other (Left AKA, pacemaker, CABG, coronary stenting)
Social History
Tobacco: Non-Smoker
Alcohol: Occasional
Living: Residential
Family History
Family History: Reviewed & Not Pertinent
Allergies / Home Medications
Allergy/AdvReac Type Severity Reaction Status Date / Time
Sulfa (Sulfonamide Allergy Hives Verified 05/04/24 14:45
Antibiotics)
sulfasalazine Allergy mother Verified 05/04/24 14:45
states
hives
�Medication �Instructions �Recorded �Confirmed �Type
atorvastatin 80 mg tablet 80 mg PO DAILY@2029 High 03/30/23 05/04/24 History
Cholesterol
folic acid-vit B6-vit B12 2.5 1 tab PO DAILY Supplement 04/16/23 05/04/24 History
mg-25 mg-2 mg tablet (Folbic)
carvedilol 3.125 mg tablet 3.125 mg PO BID #60 tabs 04/17/23 05/04/24 Rx
amiodarone 200 mg tablet 200 mg PO DAILY Arrhythmia 05/04/23 05/04/24 History
acetaminophen 325 mg tablet 650 mg PO Q4HPRN PRN mild 06/22/23 05/04/24 History
pain/fever>100.4
bisacodyl 10 mg rectal suppository 10 mg FL DAILYPRN PRN 3 days no 06/22/23 05/04/24 History
bm, lactulose ineffective
fluticasone propionate 50 1 spray intranasal QPM Allergies 06/22/23 05/04/24 History
mcg/actuation nasal
spray,suspension
insulin lispro 100 unit/mL 0 - 12 sliding scale dose SC 06/22/23 05/04/24 History
subcutaneous pen (Humalog KwikPen TID@0730,1230,1730 Diabetes
(U-100) Insulin)
lactulose 20 gram/30 mL oral 20 g PO HSPRN PRN Constipation 06/22/23 05/04/24 History
solution
naloxone 4 mg/actuation nasal 4 mg intranasal DAILYPRN PRN 06/22/23 05/04/24 History
spray (Narcan) opioid overdose
pregabalin 75 mg capsule (Lyrica) 75 mg PO TID Pain 06/22/23 05/04/24 History
azathioprine 75 mg tablet 75 mg PO DAILY ulcerative colitis 09/14/23 05/04/24 History
apixaban 2.5 mg tablet (Eliquis) 2.5 mg PO BID #60 tabs 09/23/23 05/04/24 Rx
fentanyl 25 mcg/hr transdermal 1 patch transdermal Q72H Pain #1 ea 09/23/23 05/04/24 Rx
patch
tamsulosin 0.4 mg capsule 0.4 mg PO DAILY 30 days #30 caps 09/23/23 05/04/24 Rx
ipratropium 0.5 mg-albuterol 3 mg 3 ml inhalation R BID 11/14/23 05/04/24 History
(2.5 mg base)/3 mL nebulization Lung/Breathing Issues
soln
aspirin 81 mg tablet,delayed 81 mg PO DAILY #1 tab 11/27/23 05/04/24 Rx
release
bumetanide 0.5 mg tablet 0.5 mg PO DAILY Fluid 11/27/23 05/04/24 Rx
Retention/Swelling #0 tabs
insulin glargine 100 unit/mL 5 unit (0.05 mL) SC DAILY@2030 11/27/23 05/04/24 Rx
subcutaneous solution (Lantus Diabetes #0 mL
U-100 Insulin)
cholestyramine (with sugar) 4 gram 4 g PO DAILY High Cholesterol 05/04/24 05/04/24 History
powder for susp in a packet
(Questran)
diphenoxylate-atropine 2.5 1 tab PO DAILYPRN PRN diarrhea 05/04/24 05/04/24 History
mg-0.025 mg tablet
insulin lispro 100 unit/mL 5 unit SC TID Diabetes 05/04/24 05/04/24 History
subcutaneous pen (Humalog KwikPen
(U-100) Insulin)
ipratropium 0.5 mg-albuterol 3 mg 3 ml inhalation R Q6HPRN PRN cough 05/04/24 05/04/24 History
(2.5 mg base)/3 mL nebulization
soln
loperamide 2 mg tablet 2 mg PO Q6HPRN PRN diarrhea 05/04/24 05/04/24 History
metolazone 2.5 mg tablet 2.5 mg PO DAILY Pain 05/04/24 05/04/24 History
mineral oil 1 applic topical DAILY right foot 05/04/24 05/04/24 History
pantoprazole 20 mg tablet,delayed 20 mg PO DAILY Gastrointestinal 05/04/24 05/04/24 History
release Issue
therapeutic multivitamin 1 tab PO DAILY Supplement 05/04/24 05/04/24 History
Review of Systems
-
History Source: Patient
All other systems: Negative unless noted
A 10 point review of systems was completed, and was negative except as per HPI.
Physical Exam
Vital Signs
Temp Pulse Resp BP Pulse Ox
99 F 61 15 92/65 98
05/05/24 07:11 05/05/24 08:41 05/05/24 06:00 05/05/24 10:07 05/05/24 09:50
05/04/24 05/05/24 05/06/24
06:59 06:59 06:59
Actual Weight 77.8 kg
Body Mass Index (BMI) 26.9
Lab Results
05/05/24 06:23
05/05/24 06:23
WBC 5.9 10^3/uL (4.8-10.8) 05/05/24 06:23
Hgb 8.5 g/dL (13.0-18.0) L 05/05/24 06:23
Hct 26.3 % (39.0-52.0) L 05/05/24 06:23
Plt Count 45 10^3/uL (130-400) L D 05/05/24 06:23
Abs Immat Gran (auto) 0.1 10^3/uL (0-0.05) H 05/04/24 15:12
Neutrophils % 89.4 % (42.2-75.2) H 05/04/24 15:12
Physical Exam
General: Well Developed, Well Nourished, No Apparent Distress, Comfortable and Other (Chronically ill-appearing, elderly male)
HEENT: Normocephalic, Anicteric and Moist Mucous Membranes
Respiratory: Non Labored Respirations
Cardiac: Irregular Rhythm
GI: Soft, Non Tender (Specifically no tenderness in the right upper quadrant, no rebound, no rigidity, no guarding) and Non Distended
Neuro: AO x 3
Psych: Calm
Data Reviewed
-
CT Scan: Image Personally Visualized and interpreted, Report Reviewed by me, Discussed with Physician, Discussed with Patient and Discussed with Family
Labs: Labs Reviewed by me, Discussed with Patient and Discussed with Family
Assessment / Plan
-
Assessment: 83-year-old male admitted with catheter associated UTI and sepsis as well as bacteremia (cultures pending) numerous chronic medical conditions as listed in the HPI and PMH.
Gallstones identified on CT abdomen/pelvis imaging. This was a noncontrast study. Images personally reviewed and quite limited. Possible gallbladder wall thickening/haziness or pericholecystic fluid but again difficult to accurately evaluate the
gallbladder with this imaging study alone. Mildly elevated total bilirubin and AST.
No clinical signs of cholecystitis. Patient tolerating dietary intake. No abdominal tenderness on examination, even on focused and deep palpation in the right upper quadrant.
Plan: Repeat LFTs today including fractionated bilirubin
Discussed with patient and his at bedside. Advised there are no signs highly suggestive of cholecystitis or gallstone mediated complication and he does not endorse any symptoms suggestive of biliary colic recently or in the past.
UTI with chronic indwelling Cespedes catheter and resultant bacteremia/sepsis -no clear biliary source awaiting speciation of cultures.
Would therefore follow gallbladder/gallstones expectantly at the moment. If clinical picture were to change consideration of HIDA but at this point would hold off on further workup of gallstones given lack of clinical picture to suggest symptomatic
or cholecystitis is present.
Continue with current treatment plan as per hospitalist.
Updated Dr. Mckeon regarding surgical impression and plan.
[2024-05-05 11:57] LABS: ALT (SGPT) 97 U/L (0-50); AST (SGOT) 179 U/L (17-59); Albumin 3.2 g/dl (3.5-5.0); Alkaline Phosphatase 51 U/L (38-126); Direct Bilirubin 0.7 mg/dl (0.0-0.4); Total Bilirubin 2.3 mg/dl (0.2-1.3); Total Protein 6.3 g/dl (6.3-8.2)
--- NOTE | 2024-05-05 12:00 | PTCARENOTE ---
Assumed care of pt from table games shift manager RN. AAOx3. [place]. Apaced on quality assurance monitor final. SpO2 97% on 2L nasal cannula. Cespedes in place. Yellow, cloudy urine in drainage bag. training administrator at bedside. Dressing changed on RLE and sacrum. Wound care orders
placed. Pt with hx of chronic diarrhea. Imodium ordered for loose BMs. Pt resting in bed with at bedside. Pt son updated over phone today.
[2024-05-05 12:22] LABS: Glucose - Point of Care 223 mg/dl (70-99)
[2024-05-05] MEDS: VANCOCIN 540 MG IV (12:51)
[2024-05-05] MEDS: NOVOLOG FLEXPEN-MODERATE RESISTANCE 3 UNITS SC (12:52)
[2024-05-05] MEDS: IMODIUM 2 MG PO (13:58)
--- NOTE | 2024-05-05 14:05 | PHA.VAN.IN ---
Assessment
- Assessment
Renal Function: Appears similar to baseline
Concomitant Antimicrobials: piperacillin/tazobactam
- Previous Dosing Experience
Previous Regimen: Vanc 1000mg Q24H
Date of Regimen: Jun 2023
Provided Trough of: 19.3
Provided AUC of: 567
Patient's SCR is: Similar to previous dosing experience (SCR slightly elevated at 1.3 vs 1.1)
Patient's weight is: Similar to previous dosing experience (possibly decreased 5-10kg)
Regimen provided the following additional patient-specific PK:
ke=0.0216
half-life= 32H
extrapolated Cmax 29.9 (drawn ~1.5H after end of previous infusion)
extrapolated Cmin 18.2
VD = 82 L
Vanc Cl 29 ml/min
Plan
- Plan
Initial / Loading Dose: 2000mg - 05/05 12:51
Maintenance Regimen: dosing by level - previously prolonged half-life
Monitoring: random 05/06 0600
Pharmacokinetics Vancomycin I
- -
Patient Age: 83
Patient Sex: Male
Vancomycin Day #: 1
Indication: Bacteremia
Requesting Provider: Dr. Mckeon
Pertinent Antimicrobial Allergies:
sulfonamide antibiotics - hives
Height / Weight:
Height 5 ft 7 in
Actual Weight 77.8 kg
Pertinent Past Medical History: CKD, DM II
- Vital Signs / Lab Results
Temp Pulse Resp BP Pulse Ox
98.5 F 61 15 92/65 98
05/05/24 11:10 05/05/24 08:41 05/05/24 06:00 05/05/24 10:07 05/05/24 13:43
Lab Results - Hematology
05/04/24 05/05/24
15:12 06:23
WBC 7.4 5.9
Band Neutrophils 20 H
Lab Results - Chemistry
05/04/24 05/05/24
15:12 06:23
BUN 55 H 52 H
Creatinine 1.6 H 1.3
Estimated Creat Clear 33 40
Albumin 3.5 3.2 L
05/04/24 05/04/24 05/04/24
15:12 19:15 23:10
Lactic Acid 2.1 H Cancelled 1.5
Lab Results - Urine
05/04/24
15:12
Urine Nitrite (Reflex) Positive A
Leukocyte Esterase Rfl 2+ A
Urine WBC (Reflex) 50-60 A
Ur Squamous Epith Cells 0-2
Urine Bacteria (Reflex) Moderate A
Microbiology Results
05/04/24 15:21 Blood Culture - Preliminary
Blood/Venous Positive culture in progress
Gram Stain - Final
05/04/24 15:12 Blood Culture - Preliminary
Blood/Venous Positive culture in progress
Gram Stain - Final
[2024-05-05 14:07] LABS: Glycohemoglobin (HgbA1c) 7.1 % (4.0-5.6)
--- NOTE | 2024-05-05 14:37 | CM ---
Addendum entered by Aileen Izquierdo 05/05/24 14:52:
IMM benefit explained; form signed @ 1443
Original Note:
Met with , Nara) at the bedside; patient asleep; initial assessment completed
Pharmacy: [facility] @ [address] [place] [address]
reported that her resides at [facility]; Bed is ON HOLD; they have 2 sons; son, Nirmal, lives nearby and available for his mother
PLOF: reported that prior to recent illness, patient was alert and oriented; non-ambulatory; requires total care but was able to feed self; staff uses a anne lift to get him OOB to WC
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
Plan: Return to [facility] when medically stable via ambulance
--- NOTE | 2024-05-05 15:44 | PTCARENOTE ---
Zaragoza exchanged at bedside. New 16 Fr zaragoza placed. Initial output with bloody urine and one small clot. Dr. Mckeon aware.
[2024-05-05 17:35] LABS: Glucose - Point of Care 265 mg/dl (70-99)
[2024-05-05] MEDS: NOVOLOG FLEXPEN-MODERATE RESISTANCE 5 UNITS SC (17:39)
[2024-05-05] MEDS: LIPITOR 80 MG PO (20:44)
[2024-05-05] MEDS: COREG 3.125 MG PO (20:44)
[2024-05-05] MEDS: TYLENOL 650 MG PO (20:49)
[2024-05-05 21:48] LABS: Glucose - Point of Care 248 mg/dl (70-99)
[2024-05-06] VITALS (13 sets, daily range): BP systolic 90–122; BP diastolic 47–79; BMI 28.1
--- NOTE | 2024-05-06 01:16 | PTCARENOTE ---
Pt continues with bloody urine via zaragoza which was exchanged today. MD already aware during the day.
Heme tested his stool overnight which was heme POSITIVE
Will update in the morning. VSS. PT sleeping comfortably.
--- NOTE | 2024-05-06 01:19 | PTCARENOTE ---
Caring for patient overnight. aaox3 & son at bedside. remains A paced BBB prolonged QT. Cespedes in place, draining bloody urine. Continues with diarrhea. IVF IVABX. Q2T. RLE +2 edema, doppler pulse+. 2LNC. [place]. Bed alarm in place. will monitor.
[2024-05-06] MEDS: ZOSYN 50 IV (03:41)
[2024-05-06 04:56] LABS: % Immature Granulocytes 0.7 % (0-0.5); % Lymphocytes 4.6 % (20.5-51.1); % Monocytes 15.5 % (1.7-9.3); % Neutrophils 79.2 % (42.2-75.2); Absolute Lymphocytes 0.2 10^3/uL (1.2-3.4); Absolute Monocytes 0.7 10^3/uL (0.1-0.6); Absolute Neutrophils 3.5 10^3/uL (1.4-6.5); Hemoglobin 7.4 g/dL (13.0-18.0); Mean Corp Hgb Conc. 33.6 g/dL (33.0-37.0); Mean Corpuscular Hgb 25.3 pg (27.0-31.0); Mean Corpuscular Volume 75.1 fL (80.0-94.0); Nucleated Red Blood Cells % 0 % (-); Platelet Count 40 10^3/uL (130-400); Red Blood Cell Count 2.93 10^6/uL (4.70-6.10); Red Cell Dist. Width 19.3 % (11.5-14.5); White Blood Cell Count 4.4 10^3/uL (4.8-10.8)
[2024-05-06 05:07] LABS: Vancomycin Random 14.6 ug/ml
[2024-05-06 05:10] LABS: Blood Urea Nitrogen 58 mg/dl (9-20); Calcium 8.5 mg/dl (8.4-10.2); Carbon Dioxide 26 mmol/L (22-30); Chloride 100 mmol/L (98-107); Estimated Creatinine Clearance 37 ml/min; Glucose 200 mg/dl (70-99); Potassium 3.4 mmol/L (3.5-5.1); Sodium 136 mmol/L (135-145); eGFR 49.87
--- NOTE | 2024-05-06 08:10 | W.PN.GS2 ---
Addendum entered and electronically signed by Toy Zuleta MD 05/06/24 09:12:
Patient seen and examined. Agree with assessment plan as documented below.
No reports of abdominal pain or discomfort. No nausea or vomiting. Main complaint is weakness in bilateral upper extremities.
Gen: NAD
Abd: soft, NT/ND, non-peritoneal, negative Subramanian's sign
Patient is an 83 y M p/w bilateral upper extremity weakness.
Workup notable for a CT scan with cholelithiasis with no clear evidence of cholecystitis (imaging limited by lack of IV and oral contrast). Labs notable for elevated bilirubin and LFTs, however, fractionated bilirubin largely unconjugated and less
indicative of cholestasis or gallbladder related issues. No clinical evidence of cholecystitis; tolerating a diet and no abdominal pain.
No plans or indication for cholecystectomy at this time. Further workup and management of his presenting symptoms per hospitalist.
-- Further workup per hospitalist regarding presenting symptoms.
-- No plans or indication for further workup or management of his gallbladder at this time.
Original Note:
Today's Communication / Plan
-
Continue with current treatment plan as per hospitalist
Assessment / Plan
-
83 yo male with h/o DM, UC (chronic loose stools), CHF, Afib on Eliquis and chronic zaragoza presenting with progressive weakness/fatigue undergoing treatment for UTI and bacteremia with hematuria noted. Incidental finding of gallstones on CT imaging
and possible wall thickening/pericholecystic fluid. No RUQ pain or biliary colic symptoms, tolerating diet. No tenderness on exam.
LFTs pending for today, trending up this admission thus far, elevated INR and decreased platelets, ?hepatocellular pathology
There are no signs highly suggestive of cholecystitis or gallstone mediated complication and he does not endorse any symptoms suggestive of biliary colic recently or in the past.
Awaiting speciation of cultures (Gram + thus far) -no clear biliary source
--No plans for surgery at this time
--If patient develops RUQ tenderness/pain, biliary colic would check HIDA; otherwise would hold off on further gallbladder imaging.
Surgery to follow peripherally, please call with questions/concerns
Subjective Data
-
Date of Service: May 06, 2024
Patient seen and examined at bedside with Dr. Zuleta. Denies abdominal pain. Does note he is having difficulty moving his arms/hands. Denies n/v.
Objective Data
-
Intake and Output
05/05/24 05/06/24 05/07/24
06:59 06:59 06:59
Intake Total 780 / 780
Output Total 775 / 775 525 / 525
Balance -775 / -775 255 / 255
Intake:
Oral fluids 240 / 240
IV piggybacks 540 / 540
Output:
Urine, Zaragoza 775 / 775 525 / 525
Vital Signs
Temp Pulse Resp BP Pulse Ox
98.1 F 60 13 90/50 99
05/06/24 04:54 05/06/24 06:09 05/06/24 06:09 05/06/24 06:09 05/06/24 06:09
Lab Results
05/06/24 04:27
05/06/24 04:28
Calcium 8.5 mg/dl (8.4-10.2) 05/06/24 04:28
Magnesium 1.6 mg/dl (1.6-2.3) 05/05/24 06:23
Total Bilirubin 2.3 mg/dl (0.2-1.3) H 05/05/24 06:23
Direct Bilirubin 0.7 mg/dl (0.0-0.4) H 05/05/24 06:23
AST 179 U/L (17-59) H 05/05/24 06:23
ALT 97 U/L (0-50) H 05/05/24 06:23
Alkaline Phosphatase 51 U/L (38-126) 05/05/24 06:23
Total Protein 6.3 g/dl (6.3-8.2) 05/05/24 06:23
Albumin 3.2 g/dl (3.5-5.0) L 05/05/24 06:23
Physical Exam
-
NAD
ABD soft, nt, nd
zaragoza with dark red urine
[2024-05-06 08:26] LABS: Glucose - Point of Care 184 mg/dl (70-99)
[2024-05-06 08:28] LABS: ALT (SGPT) 119 U/L (0-50); AST (SGOT) 166 U/L (17-59); Albumin 2.8 g/dl (3.5-5.0); Alkaline Phosphatase 45 U/L (38-126); Direct Bilirubin 0.9 mg/dl (0.0-0.4); Total Bilirubin 2.2 mg/dl (0.2-1.3); Total Protein 5.7 g/dl (6.3-8.2)
[2024-05-06] MEDS: PROTONIX 20 MG PO (08:34)
[2024-05-06] MEDS: PACERONE 200 MG PO (08:34)
[2024-05-06] MEDS: COREG PO (08:35)
[2024-05-06] MEDS: NOVOLOG FLEXPEN-MODERATE RESISTANCE 1 UNITS SC ×2 (08:35→10:50)
[2024-05-06] MEDS: ELIQUIS PO (08:35)
--- NOTE | 2024-05-06 08:46 | PN.CDI ---
CDI
- -
CDI:
Physician Documentation Request
Admit Date: 05/04/24 17:16
Dear Doctor Mckeon,
Please review the following and provide your response in the progress notes.
Clinical Indicators:
- 05/05 Wound note indicates:
- Stage 1 right heel pressure injury, POA
- Stage 2 sacrum pressure injury, POA
Physician documentation of the type and location of wounds is required for compliant documentation. Based on the above clinical findings and your assessment, please provide the following in your progress note:
1. Location of the ulcer/wound, including laterality.
2. Type (etiology) of ulcer/wound:
- Diabetic ulcer
- Arterial (ischemic) ulcer
- Traumatic wound
- Venous stasis ulcer
- Pressure (decubitus) ulcer
- Non-healing surgical wound
- Other
- Unable to determine
Use of terms such as suspected, likely, concern for, or probable (associated with a specific diagnosis that is being evaluated, monitored, or treated as if it exists) are acceptable and can be coded in the inpatient setting, when documented at the
time of discharge.
Thank you,
Prachi Bhakta RN
CDI Specialist
Please use your independent medical judgment in providing your response.
*Source: National Pressure Ulcer Advisory Panel (NPUAP)
--- NOTE | 2024-05-06 08:57 | W.PN.HOSP.TC ---
Addendum entered and electronically signed by [place] cMkeon MD 05/06/24 16:03:
- Stage 1 right heel pressure injury, POA
- Stage 2 sacrum pressure injury, POA
Addendum entered and electronically signed by [place] Mckeon MD 05/06/24 12:31:
Hypokalemia-->replete and trend
Correction Cr today 1.4
Original Note:
Today's Communication/Plan
-
IV antibiotics. Cervical MRI. ID consult
Assessment / Plan
Assessment / Plan
Physical exam:
General: Acutely ill. Less toxic appearance.
HEENT: Normocephalic, Atraumatic and Moist Mucous Membranes
Respiratory: Clear to Auscultation; Negative Wheezes, Rales or Rhonchi
Cardiac: Regular Rhythm and S1/S2
GI: Soft, Nontender and Nondistended
Musculoskeletal: Left AKA. No Clubbing, No Cyanosis and No Edema. Remains with significant amount of weakness in upper extremities.
Neuro: Awake, Alert and Oriented, weakness present b/l UE> b/l LE
Psych: Calm
A/P:
Sepsis unclear source with Strept Bacteremia, needs to rule out spinal epidural abscess, vs ?catheter associated urinary tract infection vs other:
Continue IV fluids but decrease rate
Switched Zosyn/Vanco to IV Ceftriaxone 2 gr iv daily given Group C Strep on blood cultures. ID consult today.
Ordered cervical MRI yesterday 05/05 to r/o spinal epidural abscess--> called radiology today requiring test to be done today and they assured me it will be done this afternoon and they needed to go through protocol due to pacemaker in place.
Reviewed blood cultures--> called microbiology today 05/06 to identify organism.
Exchanged Cespedes catheter yesterday
Seen CT scan of the abdomen and no obstruction urinary tract but some concerns raised about cholecystitis. He does not have abdominal pain nor he has any signs consistent with cholecystitis but will have surgery to see to confirm. Discussed with
surgery yesterday via [employer] text.
Updated son over the phone today
Upper extremity weakness-see above:
This could be all related to overall infection but out of proportion of what would be expected at this point so needs to rule out SEA with cervical myelopathy and bacteremia--> cervical MRI ordered (it is pacemaker compatible)--> discussed with
radiology today to have this test done today.
Hematuria:
Traumatic Cespedes catheter exchange and also underlying use of Eliquis
Hold Eliquis
Monitor hemoglobin
Monitor hematuria
Continue IV fluids
Hypotension:
Due to sepsis but improving
IV fluids and hold antihypertensives
LENI on CKD:
Creatinine 1.3 today. Yesterday 1.6
Creatinine 1.3 on 03/08
Avoid nephrotoxic
Monitor renal function
Obtained CT of the abdomen
Paroxysmal atrial fibrillation:
Resume rate control, carvedilol 3.125 mg twice a day with holding parameters
Will use IV Lopressor as needed
Continue antiarrhythmic, amiodarone 200 mg daily
Continue anticoagulation, Eliquis 2.5 mg twice a day
Diabetes mellitus type 2:
Hold long-acting and short acting for now since blood sugars remain in the low side.
Continue insulin sliding scale
Hyperlipidemia:
Continue statin
Chronic HFpEF:
Hold diuretics
Monitor volume status
CAD/PVD/CVA:
Continue anticoagulant and anti-ischemic regimen
Chronic pain syndrome/spinal stenosis/chronic narcotics dependence:
Continue fentanyl patch
IV Dilaudid as needed for now
History of ulcerative colitis/GERD/GI bleed:
Monitor GI symptoms
Chronic thrombocytopenia:
Monitor platelet count and signs of bleeding
Platelet count 45 today
DVT prophylaxis:
SCD's
CODE STATUS:
Full code
Total time spent on today's encounter was 52 minutes which included time spent in counseling the patient/family regarding diagnosis and treatment plan as listed above, goals of care, and symptom management. Case was discussed with nursing staff,
specialists, and care coordinators/case management. All labs and imaging personally reviewed by me. Remainder the time spent in detailed review of previous records, lab data, imaging, and other medical provider documentation.
Anticipated Discharge: > 48 hours
Subjective/Interval History
-
Date of Service: May 06, 2024
Patient remains weak in upper extremities, no chest pain or shortness of breath. Some hematuria. No abdominal pain. Afebrile
Objective Data
-
Labs:
Laboratory Results
05/06/24 05/06/24
04:27 04:28
WBC 4.4 L
Hgb 7.4 L
Hct 22.0 L
Plt Count 40 L
Sodium 136
Potassium 3.4 L
Chloride 100
Carbon Dioxide 26
BUN 58 H
Creatinine 1.4 H
Glucose 200 H
Calcium 8.5
Total Bilirubin 2.2 H
AST 166 H
ALT 119 H
Alkaline Phosphatase 45
Vital Signs:
Vital Signs
Temp Pulse Resp BP Pulse Ox
98.1 F 60 13 99/66 99
05/06/24 04:54 05/06/24 08:34 05/06/24 06:09 05/06/24 08:34 05/06/24 06:09
I&O
05/05/24 05/06/24 05/07/24
06:59 06:59 06:59
Intake Total 780 / 780
Output Total 775 / 775 525 / 525
Balance -775 / -775 255 / 255
--- NOTE | 2024-05-06 09:58 | CM ---
Patient from [facility] with Hx including CVA and left AKA. MRI C-Spine today. O2 2L. Receiving IVF, IV Abx. Per nurse assessment; requires assist of 2. PT & OT Evals pending.
Spoke with Jerod, s [facility];
she confirms that the patient resides there in LTC on a bed hold.
He is forgetful at baseline, AFOGNAK and wears hearing aides.
The patient is 'dependent' for ADLs, requiring max assist for upper body and mod assist for LB ADLs, dependent for toileting, able to feed self.
He is able to get OOB to w/c.
The patient was not receiving PT/OT.
[facility] (ph [phone], fax [phone])
The phone for report to [facility] is [phone], fax [phone].
[facility].
Plan follow up after seen by PT/OT.
Plan return to [facility] when medically ready.
[2024-05-06] MEDS: ASPIR LOW (ENTERIC COATED) 81 MG PO (10:49)
[2024-05-06] MEDS: STERILE WATER FOR INJECTION 20 ML IV (10:49)
[2024-05-06] MEDS: KCL 20 MEQ PO (10:49)
[2024-05-06] MEDS: ROCEPHIN 2000 MG IV (10:49)
[2024-05-06 10:56] LABS: Glucose - Point of Care 181 mg/dl (70-99)
[2024-05-06] MEDS: FLUSH (NSS) 10 FLUSH IV ×2 (11:28)
[2024-05-06] MEDS: LR 1000 IV (11:29)
--- NOTE | 2024-05-06 11:43 | CON.ID ---
Consultation
-
Date/Time Consultation Requested: 05/06/24 9:07
Date/Time Consultation Performed: 05/06/24 11:54
Requesting Provider: Dr Mckeon
Performing Provider: Dr Orosco
Reason for Consultation: Bacteremia/sepsis
Chief Complaint / Past History
Chief Complaint
fever
History of Present Illness
Mr Garcia is an 83 year old male with history of UC on azithioprine, questran, chronic thrombocytopeniaurinary retention with chronic zaragoza presenting here 05/04 for two days of malaise, lethargy, subjective fevers and acute weakness of the
bilateral upper upper extremities. Noted on arrival to have cloudy urine. No cough, shortness of breath, nausea, vomiting or diarrhea, abdominal pain. Of note with a chronic wound o f the RLE for which he is receiving wound care.
In the ER patient was initially febrile to 101.8 - fever has since resolved, bp intermittently with mild hypotension MAPs currently in the mid to low 60s, wbc initially 7.4 today 4.4, hgb 8.4 today 7.4, with chronic thrombocytopenia with plt
typically running 70-80s now 40, L shift is noted, cr baseline 1.0 on arrival 1.6 and today 1.4, t bili 2.2, d bili 0.9, ast 166, alt 119, alk phos 45, ua 50-60 wbc/hpf, mild hematuria, covid ag negative, 05/04 CXR: no acute cp process, 05/04 CT
a/p: cholelithiasis with GB wall thickening, splenomegaly, mild bladder wall thickening with zaragoza, stercoral colitis. blood cultures x2 group C strep, urine culture pending, patient has received ceftriaxone and zosyn on 05/04, 05/05 vancomycin and
zosyn and today he was restarted on ceftriaxone 2 gm iv q24 hr. There has been no improvement in his bilateral proximal upper extremity weakness. He is able to use his hands but unable to lift the proximal or distal arms against gravity. He has
been unable to feed himself. ID is consulted for assistance with management.
Past History
Additional Past Medical History:
ASCVD
Paroxysmal Atrial Fibrillation
Ulcerative Colitis
DM-II
Chronic HFpEF
Chronic LE Lymphedema
CKD III
Hypertension
GERD
Bilateral Ankle Deformity (Acquired)
Additional Past Surgical History:
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
CABG x 4
PTCA with Stent x 2
DCCV
T&A
L EDILBERTO
Allergy History:
Sulfa (Sulfonamide Antibiotics) Allergy (Verified 05/04/24 14:45)
Hives
sulfasalazine Allergy (Verified 05/04/24 14:45)
mother states hives
Medications Reviewed: Yes
Social History
Tobacco: Non-Smoker
Alcohol: Occasional
Drug: None
Family History
Family History: Not Pertinent
Review of Systems
Review of Systems
General: Fever and Chills
All systems: All other systems were reviewed and were negative
Vital Signs
Temp Pulse Resp BP Pulse Ox
98.1 F 60 13 99/66 99
05/06/24 04:54 05/06/24 08:34 05/06/24 06:09 05/06/24 08:34 05/06/24 06:09
Physical Exam
Physical Exam
Constitutional: No Acute Distress and Chronically Ill
Cardiovascular: Regular Rate and S1/S2; Negative Murmur or Rub
Pulmonary: Clear and Symmetric; Negative Wheezes, Rales or Rhonchi
Gastrointestinal: Soft, Non Tender, Non Distended and Normal Bowel Sounds
Skin: Warm and Dry; Negative Rash or Jaundice
Neurological: Other (strength at the shoulders and elbows- 1; hand strength preserved bilaterally)
Lab / Diagnostic Study Results
05/06/24 04:27
05/06/24 04:28
Abs Immat Gran (auto) 0.0 10^3/uL (0-0.05) 05/06/24 04:27
Absolute Neuts (auto) 3.5 10^3/uL (1.4-6.5) 05/06/24 04:27
Absolute Lymphs (auto) 0.2 10^3/uL (1.2-3.4) L 05/06/24 04:27
Absolute Monos (auto) 0.7 10^3/uL (0.1-0.6) H 05/06/24 04:27
Absolute Basos (auto) 0.0 10^3/uL (0-0.2) 05/06/24 04:27
Total Counted 100 05/05/24 06:23
Immature Gran % 0.7 % (0-0.5) H 05/06/24 04:27
Neutrophils % 79.2 % (42.2-75.2) H 05/06/24 04:27
Lymphocytes % 4.6 % (20.5-51.1) L 05/06/24 04:27
Monocytes % 15.5 % (1.7-9.3) H 05/06/24 04:27
Eosinophils % 0.0 % (0-6) 05/06/24 04:27
Basophils % 0.0 % (0-2) 05/06/24 04:27
Abs Neuts (Manual) 5.3 10^3/uL (1.4-6.5) 05/05/24 06:23
Segmented Neutrophils 71 % (42-75) 05/05/24 06:23
Band Neutrophils 20 % (0-3) H 05/05/24 06:23
Lactic Acid Cancelled 05/05/24 06:23
Ur Squamous Epith Cells 0-2 /LPF (Few) 05/04/24 15:12
Microbiology Results
Micro:
05/04/24 15:12 Blood Culture - Preliminary
Blood/Venous Group C Streptococcus
Gram Stain - Final
05/04/24 15:21 Blood Culture - Preliminary
Blood/Venous Group C Streptococcus
Gram Stain - Final
05/04/24 20:10 MRSA Screen - Final
Nose No Methicillin Resistant Staphylococcus aureus isolated.
05/04/24 15:12 Urine Culture - Pending
Urine
Assessment / Plan
Bilateral Upper Extremity Weakness - concern for possible OM/discitis/epidural abscess
Group C Strep bacteremia
LENI
Pacemaker
Chronic Thrombocytopenia
Dm2
- repeat blood cultures x2 today
- 04/03 blood cultures 10 min apart both with group C strep
- TTE for now; if not improving, thrombocytopenia may be a limiting factor for consideration of ZACHARY
- MRI c spine changed to urgent, with and without contrast
- agree with ceftriaxone at current dose
- given LENI would not add gentamicin at this time
- follow closely
--- NOTE | 2024-05-06 14:59 | CON.NEURO ---
Consultation
Order
Date of Consultation: 05/06/24
Requesting Provider: Washington Mckeon MD
Reason for Consult: Bilateral upper extremity with
Neurology consultation note
CC: Arm weakness
HPI: This is an 83-year-old immunocompromised man who presented to [facility] on 05/04/2024 with fever, and arm weakness,
According to the patient he developed an acute symmetric painless arm weakness, which he describes as feeling heavy on 05/05/2024 upon awakening. No reports of sensory changes, visual deficits, aphasia or dysarthria. No change in strength in the
right leg.
Review of vital signs was notable for transient hypotension down to 90/47.
PDMP:Pregabalin 75 Mg 90
Labs: WBCs�4.4, Hb 7.4, Pl�40, Mg 1.6, gluc 200,. UA�positive nitrates, WBCs, RBCs, leukocyte esterase
C spine MRI wo gloria-C3-4 and C4-C5 mod-severe central canal stenosis and cord compression
PMH: Ulcerative colitis on Imuran, PA A-fib, anemia, ASCVD, HTN, DLP, DM, CKD, BPH
PSH:PPM, CABG x 4, Left AKA, tonsillectomy L EDILBERTO, bilateral cataract
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
FH: Not contributory to current presentation
All: Sulfa
ROS:Constitutional: Negative. Negative for chills, fever and unexpected weight change.
HENT: Negative for ear pain, hearing loss, tinnitus and trouble swallowing.
Eyes: Negative. Negative for photophobia, pain and visual disturbance.
Respiratory: Negative for cough, choking and shortness of breath.
Cardiovascular: Negative for chest pain, palpitations and leg swelling.
Gastrointestinal: Negative for abdominal pain and vomiting.
Endocrine: Negative. Negative for cold intolerance.
Genitourinary: Negative for dysuria, flank pain and urgency.
Musculoskeletal: Negative for back pain, gait problem, neck pain and neck stiffness.
Skin: Negative for rash.
Allergic/Immunologic: Negative. Negative for immunocompromised state.
Neurological: Positive for bilateral arm weakness negative for right leg weakness
Psychiatric/Behavioral: Negative for behavioral problems, confusion and hallucinations.
General: Well developed. In no acute distress.
Cardio: Regular rate and rhythm without murmur. Extremities are without cyanosis or edema.
Neuro:
Mental Status: Alert, oriented to person, place, and date. Normal attention and recall. Good fund of knowledge. Follows complex requests across the midline. Comprehension, naming, and repetition intact.
Cranial Nerves: . Pupils are equally round and reactive to light. EOMs full. Visual gonsales full to confrontation. No ptosis. No nystagmus. V1-V3 intact to light touch and pinprick bilaterally, symmetric. Face symmetric. Normal hearing AU.
The palate elevated well. SCMs and traps 5/5. Tongue midline. Minimal disorder
Motor: Normal bulk and tone. Upper severe proximal and distal paraparesis. No right leg drift. Left AKA
Sensory: Normal light touch in upper extremities
Coordination: No tremors myoclonic movements
Gait: deferred
Assessment and Plan:
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 Probable etiology�watershed infarcts.
II. 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
III. Pancytopenia
-Continue Telemetry monitoring.
-Avoid cerebral hypoperfusion
-CTA head and neck or carotid Doppler ultrasound if continues to have renal
-Resume aspirin 81 mg once when thrombocytopenia resolved
-Brain MRI without gloria
-PT
-DVT prophylaxis.
I personally reviewed all radiology and labs along with past medical records pertinent to current medical problems. Total time spent in patient care is 60 minutes.
Thank you for allowing us to participate in the care of this patient. We will continue to follow. Please do not hesitate to contact us with any questions or concerns.
Subjective/Objective
Subjective Data
Date of Service: May 06, 2024
Objective Data
Vital Signs
Temp Pulse Resp BP Pulse Ox
36.8 C 60 13 99/66 99
05/06/24 11:26 05/06/24 08:34 05/06/24 06:09 05/06/24 08:34 05/06/24 06:09
Lab Results
05/06/24 04:27
05/06/24 04:28
Sodium 136 mmol/L (135-145) 05/06/24 04:28
Potassium 3.4 mmol/L (3.5-5.1) L 05/06/24 04:28
BUN 58 mg/dl (9-20) H 05/06/24 04:28
Glucose 200 mg/dl (70-99) H 05/06/24 04:28
Calcium 8.5 mg/dl (8.4-10.2) 05/06/24 04:28
Patient Allergies
Sulfa (Sulfonamide Antibiotics) Allergy (Verified 05/04/24 14:45)
Hives
sulfasalazine Allergy (Verified 05/04/24 14:45)
mother states hives
Medications
-
Active Medications
Generic Name Dose Route Start Last Admin
Trade Name Freq PRN Reason Stop Dose Admin
Acetaminophen 650 mg 05/04/24 19:51 05/05/24 20:49
Acetaminophen 325 Mg Tablet PO 06/01/24 19:50 650 mg
Q4HPRN PRN Administration
mild pain/fever>100.4
Albuterol/Ipratropium 3 ml 05/04/24 19:51
Ipratropium 0.5/Albuterol 3 Mg (3 Ml Ampul) INH
R Q6HPRN PRN
cough
Protocol
Amiodarone HCl 200 mg 05/05/24 08:00 05/06/24 08:34
Amiodarone 200 Mg Tablet PO 06/02/24 07:59 200 mg
DAILY CIPRIANO Administration
Apixaban 2.5 mg 05/04/24 20:00 05/06/24 08:35
Apixaban (Eliquis) 2.5 Mg Tablet PO 06/01/24 19:59 Not Given
BID CIPRIANO
Aspirin 81 mg 05/05/24 08:00 05/06/24 10:49
Aspirin 81 Mg (Enteric Coated) Tablet PO 06/02/24 07:59 81 mg
DAILY CIPRIANO Administration
Atorvastatin Calcium 80 mg 05/04/24 22:00 05/05/24 20:44
Atorvastatin (Lipitor) 80 Mg Tablet PO 06/01/24 21:59 80 mg
HS CIPRIANO Administration
Carvedilol 3.125 mg 05/05/24 10:00 05/06/24 08:35
Carvedilol 3.125 Mg Tablet PO 06/02/24 09:59 Not Given
BID CIPRIANO
Ceftriaxone Sodium 2,000 mg 05/06/24 10:00 05/06/24 10:49
Ceftriaxone 2,000 Mg/20 Ml Vial IV 2,000 mg
Q24H CIPRIANO Administration
Dextrose 12.5 grams 05/04/24 16:43
Dextrose 50% (0.5 Grams/Ml) 50 Ml Syringe IV 06/01/24 16:42
[id number] PRN
hypoglycemia
Protocol
Fentanyl 1 patch 05/04/24 20:00 05/04/24 20:37
Fentanyl 25 Mcg/Hr Patch TRANSDERM 05/18/24 19:59 1 patch
Q72H CIPRIANO Administration
Glucagon 1 mg 05/04/24 16:43
Glucagon 1 Mg Vial IM 06/01/24 16:42
PRN PRN
hypoglycemia
Protocol
Hydromorphone HCl 0.25 mg 05/04/24 16:49
Hydromorphone 0.25 Mg/0.5 Ml Syringe IV 05/18/24 16:48
Q4HPRN PRN
Severe pain
Lactated Ringer's 1,000 mls @ 75 mls/hr 05/04/24 17:00 05/06/24 11:29
Lr IV 1,000 mls
[id number] CIPRIANO Administration
Insulin Aspart 0 units 05/05/24 07:30 05/06/24 10:50
Insulin Aspart Moderate Resistance 300 Units/3 Ml Pen.Injctr SC 06/02/24 07:29 1 units
AC CIPRIANO Administration
Protocol
Metoprolol Tartrate 5 mg 05/04/24 16:44
Metoprolol 5 Mg/5 Ml Vial IV 06/01/24 16:43
Q6HPRN PRN
HR>120
Miconazole Nitrate 0 applic 05/05/24 11:03
Miconazole Powder Bottle TOPICAL 06/02/24 11:02
BIDPRN PRN
yeasty red skin
Pantoprazole Sodium 20 mg 05/05/24 08:00 05/06/24 08:34
Pantoprazole 20 Mg Delayed Release Tablet PO 06/02/24 07:59 20 mg
DAILY CIPRIANO Administration
Patch Removal 0 patch 05/05/24 20:00 05/05/24 20:44
Remove Fentanyl Patch REMOVE 05/19/24 19:59 1 patch
Q72H CIPRIANO Administration
Sodium Chloride 0 flush 05/04/24 20:00
Sodium Chloride 0.9% (Flush) Syringe IV 06/01/24 19:59
PER PROTOCOL CIPRIANO
Sodium Chloride 0 flush 05/06/24 10:00 05/06/24 11:28
0.9% Nacl Flush If Lactated Ringers Ivf Ordered IV 06/03/24 09:59 10 flush
BID@1000,1030 CIPRIANO Administration
Sterile Water 20 ml 05/06/24 10:00 05/06/24 10:49
Sterile Water For Injection 20 Ml Vial IV 06/03/24 09:59 20 ml
Q24H CIPRIANO Administration
Home Medications
�Medication �Instructions �Recorded
atorvastatin 80 mg tablet 80 mg PO DAILY@2030 High 03/30/23
Cholesterol
folic acid-vit B6-vit B12 2.5 1 tab PO DAILY Supplement 04/16/23
mg-25 mg-2 mg tablet (Folbic)
carvedilol 3.125 mg tablet 3.125 mg PO BID #60 tabs 04/17/23
amiodarone 200 mg tablet 200 mg PO DAILY Arrhythmia 05/04/23
acetaminophen 325 mg tablet 650 mg PO Q4HPRN PRN mild 06/22/23
pain/fever>100.4
bisacodyl 10 mg rectal suppository 10 mg MA DAILYPRN PRN 3 days no 06/22/23
bm, lactulose ineffective
fluticasone propionate 50 1 spray intranasal QPM Allergies 06/22/23
mcg/actuation nasal
spray,suspension
insulin lispro 100 unit/mL 0 - 12 sliding scale dose SC 06/22/23
subcutaneous pen (Humalog KwikPen TID@0730,1230,1730 Diabetes
(U-100) Insulin)
lactulose 20 gram/30 mL oral 20 g PO HSPRN PRN Constipation 06/22/23
solution
naloxone 4 mg/actuation nasal 4 mg intranasal DAILYPRN PRN 06/22/23
spray (Narcan) opioid overdose
pregabalin 75 mg capsule (Lyrica) 75 mg PO TID Pain 06/22/23
azathioprine 75 mg tablet 75 mg PO DAILY ulcerative colitis 09/14/23
apixaban 2.5 mg tablet (Eliquis) 2.5 mg PO BID #60 tabs 09/23/23
fentanyl 25 mcg/hr transdermal 1 patch transdermal Q72H Pain #1 ea 09/23/23
patch
tamsulosin 0.4 mg capsule 0.4 mg PO DAILY 30 days #30 caps 09/23/23
ipratropium 0.5 mg-albuterol 3 mg 3 ml inhalation R BID 11/14/23
(2.5 mg base)/3 mL nebulization Lung/Breathing Issues
soln
aspirin 81 mg tablet,delayed 81 mg PO DAILY #1 tab 11/27/23
release
bumetanide 0.5 mg tablet 0.5 mg PO DAILY Fluid 11/27/23
Retention/Swelling #0 tabs
insulin glargine 100 unit/mL 5 unit (0.05 mL) SC DAILY@2030 11/27/23
subcutaneous solution (Lantus Diabetes #0 mL
U-100 Insulin)
cholestyramine (with sugar) 4 gram 4 g PO DAILY High Cholesterol 05/04/24
powder for susp in a packet
(Questran)
diphenoxylate-atropine 2.5 1 tab PO DAILYPRN PRN diarrhea 05/04/24
mg-0.025 mg tablet
insulin lispro 100 unit/mL 5 unit SC TID Diabetes 05/04/24
subcutaneous pen (Humalog KwikPen
(U-100) Insulin)
ipratropium 0.5 mg-albuterol 3 mg 3 ml inhalation R Q6HPRN PRN cough 05/04/24
(2.5 mg base)/3 mL nebulization
soln
loperamide 2 mg tablet 2 mg PO Q6HPRN PRN diarrhea 05/04/24
metolazone 2.5 mg tablet 2.5 mg PO DAILY Pain 05/04/24
mineral oil 1 applic topical DAILY right foot 05/04/24
pantoprazole 20 mg tablet,delayed 20 mg PO DAILY Gastrointestinal 05/04/24
release Issue
therapeutic multivitamin 1 tab PO DAILY Supplement 05/04/24
Vital Signs and Labs
-
Vital Signs and Labs:
Vital Signs
Temp Pulse Resp BP Pulse Ox
36.8 C 60 13 99/66 99
05/06/24 11:26 05/06/24 08:34 05/06/24 06:09 05/06/24 08:34 05/06/24 06:09
Lab Results
05/06/24 04:27
05/06/24 04:28
Sodium 136 mmol/L (135-145) 05/06/24 04:28
Potassium 3.4 mmol/L (3.5-5.1) L 05/06/24 04:28
BUN 58 mg/dl (9-20) H 05/06/24 04:28
Glucose 200 mg/dl (70-99) H 05/06/24 04:28
Calcium 8.5 mg/dl (8.4-10.2) 05/06/24 04:28
Medications
-
Medications:
Generic Name Dose Route Start Last Admin
Trade Name Freq PRN Reason Stop Dose Admin
Acetaminophen 650 mg 05/04/24 19:51 05/05/24 20:49
Acetaminophen 325 Mg Tablet PO 06/01/24 19:50 650 mg
Q4HPRN PRN Administration
mild pain/fever>100.4
Albuterol/Ipratropium 3 ml 05/04/24 19:51
Ipratropium 0.5/Albuterol 3 Mg (3 Ml Ampul) INH
R Q6HPRN PRN
cough
Protocol
Amiodarone HCl 200 mg 05/05/24 08:00 05/06/24 08:34
Amiodarone 200 Mg Tablet PO 06/02/24 07:59 200 mg
DAILY CIPRIANO Administration
Apixaban 2.5 mg 05/04/24 20:00 05/06/24 08:35
Apixaban (Eliquis) 2.5 Mg Tablet PO 06/01/24 19:59 Not Given
BID CIPRIANO
Aspirin 81 mg 05/05/24 08:00 05/06/24 10:49
Aspirin 81 Mg (Enteric Coated) Tablet PO 06/02/24 07:59 81 mg
DAILY CIPRIANO Administration
Atorvastatin Calcium 80 mg 05/04/24 22:00 05/05/24 20:44
Atorvastatin (Lipitor) 80 Mg Tablet PO 06/01/24 21:59 80 mg
HS CIPRIANO Administration
Carvedilol 3.125 mg 05/05/24 10:00 05/06/24 08:35
Carvedilol 3.125 Mg Tablet PO 06/02/24 09:59 Not Given
BID CIPRIANO
Ceftriaxone Sodium 2,000 mg 05/06/24 10:00 05/06/24 10:49
Ceftriaxone 2,000 Mg/20 Ml Vial IV 2,000 mg
Q24H CIPRIANO Administration
Dextrose 12.5 grams 05/04/24 16:43
Dextrose 50% (0.5 Grams/Ml) 50 Ml Syringe IV 06/01/24 16:42
[id number] PRN
hypoglycemia
Protocol
Fentanyl 1 patch 05/04/24 20:00 05/04/24 20:37
Fentanyl 25 Mcg/Hr Patch TRANSDERM 05/18/24 19:59 1 patch
Q72H CIPRIANO Administration
Glucagon 1 mg 05/04/24 16:43
Glucagon 1 Mg Vial IM 06/01/24 16:42
PRN PRN
hypoglycemia
Protocol
Hydromorphone HCl 0.25 mg 05/04/24 16:49
Hydromorphone 0.25 Mg/0.5 Ml Syringe IV 05/18/24 16:48
Q4HPRN PRN
Severe pain
Lactated Ringer's 1,000 mls @ 75 mls/hr 05/04/24 17:00 05/06/24 11:29
Lr IV 1,000 mls
[id number] CIPRIANO Administration
Insulin Aspart 0 units 05/05/24 07:30 05/06/24 10:50
Insulin Aspart Moderate Resistance 300 Units/3 Ml Pen.Injctr SC 06/02/24 07:29 1 units
AC CIPRIANO Administration
Protocol
Metoprolol Tartrate 5 mg 05/04/24 16:44
Metoprolol 5 Mg/5 Ml Vial IV 06/01/24 16:43
Q6HPRN PRN
HR>120
Miconazole Nitrate 0 applic 05/05/24 11:03
Miconazole Powder Bottle TOPICAL 06/02/24 11:02
BIDPRN PRN
yeasty red skin
Pantoprazole Sodium 20 mg 05/05/24 08:00 05/06/24 08:34
Pantoprazole 20 Mg Delayed Release Tablet PO 06/02/24 07:59 20 mg
DAILY CIPRIANO Administration
Patch Removal 0 patch 05/05/24 20:00 05/05/24 20:44
Remove Fentanyl Patch REMOVE 05/19/24 19:59 1 patch
Q72H CIPRIANO Administration
Sodium Chloride 0 flush 05/04/24 20:00
Sodium Chloride 0.9% (Flush) Syringe IV 06/01/24 19:59
PER PROTOCOL CIPRIANO
Sodium Chloride 0 flush 05/06/24 10:00 05/06/24 11:28
0.9% Nacl Flush If Lactated Ringers Ivf Ordered IV 06/03/24 09:59 10 flush
BID@1000,1030 CIPRIANO Administration
Sterile Water 20 ml 05/06/24 10:00 05/06/24 10:49
Sterile Water For Injection 20 Ml Vial IV 06/03/24 09:59 20 ml
Q24H CIPRIANO Administration
Home Medications
-
Home Medications
atorvastatin 80 mg tablet 80 mg PO DAILY@2030 High Cholesterol 03/30/23
folic acid-vit B6-vit B12 2.5 mg-25 mg-2 mg tablet (Folbic) 1 tab PO DAILY Supplement 04/16/23
carvedilol 3.125 mg tablet 3.125 mg PO BID #60 tabs 04/17/23
amiodarone 200 mg tablet 200 mg PO DAILY Arrhythmia 05/04/23
acetaminophen 325 mg tablet 650 mg PO Q4HPRN PRN mild pain/fever>100.4 06/22/23
bisacodyl 10 mg rectal suppository 10 mg MA DAILYPRN PRN 3 days no bm, lactulose ineffective 06/22/23
fluticasone propionate 50 mcg/actuation nasal spray,suspension 1 spray intranasal QPM Allergies 06/22/23
insulin lispro 100 unit/mL subcutaneous pen (Humalog KwikPen (U-100) Insulin) 0 - 12 sliding scale dose SC TID@0730,1230,1730 Diabetes 06/22/23
lactulose 20 gram/30 mL oral solution 20 g PO HSPRN PRN Constipation 06/22/23
naloxone 4 mg/actuation nasal spray (Narcan) 4 mg intranasal DAILYPRN PRN opioid overdose 06/22/23
pregabalin 75 mg capsule (Lyrica) 75 mg PO TID Pain 06/22/23
azathioprine 75 mg tablet 75 mg PO DAILY ulcerative colitis 09/14/23
apixaban 2.5 mg tablet (Eliquis) 2.5 mg PO BID #60 tabs 09/23/23
fentanyl 25 mcg/hr transdermal patch 1 patch transdermal Q72H Pain #1 ea 09/23/23
tamsulosin 0.4 mg capsule 0.4 mg PO DAILY 30 days #30 caps 09/23/23
ipratropium 0.5 mg-albuterol 3 mg (2.5 mg base)/3 mL nebulization soln 3 ml inhalation R BID Lung/Breathing Issues 11/14/23
aspirin 81 mg tablet,delayed release 81 mg PO DAILY #1 tab 11/27/23
bumetanide 0.5 mg tablet 0.5 mg PO DAILY Fluid Retention/Swelling #0 tabs 11/27/23
insulin glargine 100 unit/mL subcutaneous solution (Lantus U-100 Insulin) 5 unit (0.05 mL) SC DAILY@2030 Diabetes #0 mL 11/27/23
cholestyramine (with sugar) 4 gram powder for susp in a packet (Questran) 4 g PO DAILY High Cholesterol 05/04/24
diphenoxylate-atropine 2.5 mg-0.025 mg tablet 1 tab PO DAILYPRN PRN diarrhea 05/04/24
insulin lispro 100 unit/mL subcutaneous pen (Humalog KwikPen (U-100) Insulin) 5 unit SC TID Diabetes 05/04/24
ipratropium 0.5 mg-albuterol 3 mg (2.5 mg base)/3 mL nebulization soln 3 ml inhalation R Q6HPRN PRN cough 05/04/24
loperamide 2 mg tablet 2 mg PO Q6HPRN PRN diarrhea 05/04/24
metolazone 2.5 mg tablet 2.5 mg PO DAILY Pain 05/04/24
mineral oil 1 applic topical DAILY right foot 05/04/24
pantoprazole 20 mg tablet,delayed release 20 mg PO DAILY Gastrointestinal Issue 05/04/24
therapeutic multivitamin 1 tab PO DAILY Supplement 05/04/24
[2024-05-06 16:35] LABS: TSH Reflex To Free T4 < 0.02 uIU/ml (0.47-4.68)
[2024-05-06 17:05] LABS: Free T4 2.91 ng/dl (0.78-2.19)
[2024-05-06 17:29] LABS: Glucose - Point of Care 294 mg/dl (70-99)
[2024-05-06] MEDS: NOVOLOG FLEXPEN-MODERATE RESISTANCE 5 UNITS SC (18:15)
[2024-05-06] MEDS: DUONEB 3 ML INH (19:50)
[2024-05-06 21:40] LABS: Glucose - Point of Care 273 mg/dl (70-99)
[2024-05-06] MEDS: COREG 3.125 MG PO (21:59)
[2024-05-06] MEDS: LANTUS 0.05 UNITS SC (22:01)
[2024-05-07] VITALS (12 sets, daily range): BP systolic 95–119; BP diastolic 47–62; BMI 28.8
--- NOTE | 2024-05-07 03:18 | PTCARENOTE ---
Pt received from previous RN. Pt aaox3, [place]. family at bedside earlier in the evening. Hearing aides placed on plc programmer. Pt A paced on monitor. Cespedes draining bloody urine. Cespedes care done by PCT. Bed alarm in use, pt not making attempts to exit bed
overnight. Call light in reach. Assessment as documented.
[2024-05-07] MEDS: LR 1000 IV (04:37)
[2024-05-07 05:38] LABS: ALT (SGPT) 105 U/L (0-50); AST (SGOT) 123 U/L (17-59); Alkaline Phosphatase 73 U/L (38-126); Blood Urea Nitrogen 67 mg/dl (9-20); Carbon Dioxide 25 mmol/L (22-30); Chloride 101 mmol/L (98-107); Direct Bilirubin 0.9 mg/dl (0.0-0.4); Estimated Creatinine Clearance 31 ml/min; Glucose 195 mg/dl (70-99); Magnesium 1.8 mg/dl (1.6-2.3); Potassium 3.3 mmol/L (3.5-5.1); Sodium 138 mmol/L (135-145); Total Bilirubin 1.9 mg/dl (0.2-1.3); Total Protein 6.2 g/dl (6.3-8.2); eGFR 39.51
[2024-05-07 05:43] LABS: % Basophils 0.2 % (0-2); % Eosinophils 0.5 % (0-6); % Immature Granulocytes 0.5 % (0-0.5); % Lymphocytes 5.3 % (20.5-51.1); % Monocytes 11.3 % (1.7-9.3); % Neutrophils 82.2 % (42.2-75.2); Absolute Lymphocytes 0.2 10^3/uL (1.2-3.4); Absolute Monocytes 0.5 10^3/uL (0.1-0.6); Absolute Neutrophils 3.6 10^3/uL (1.4-6.5); Hematocrit 24.9 % (39.0-52.0); Hemoglobin 7.9 g/dL (13.0-18.0); Mean Corp Hgb Conc. 31.7 g/dL (33.0-37.0); Mean Corpuscular Hgb 24.2 pg (27.0-31.0); Mean Corpuscular Volume 76.4 fL (80.0-94.0); Nucleated Red Blood Cells % 0 % (-); Platelet Count 48 10^3/uL (130-400); Red Blood Cell Count 3.26 10^6/uL (4.70-6.10); Red Cell Dist. Width 19.6 % (11.5-14.5); White Blood Cell Count 4.3 10^3/uL (4.8-10.8)
[2024-05-07] MEDS: KCL 40 MEQ PO (06:04)
--- NOTE | 2024-05-07 06:15 | PTCARENOTE ---
Am k 3.3. 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 order received for PO potassium.
[2024-05-07] MEDS: DUONEB 3 ML INH ×2 (07:16→18:11)
[2024-05-07 07:46] LABS: Glucose - Point of Care 192 mg/dl (70-99)
--- NOTE | 2024-05-07 07:59 | PTCARENOTE ---
zaragoza with minimal output in drainage bag, 25 ml bloody urine. Zaragoza irrigated by hand and clot passed. Zaragoza drained 250ml urine.
[2024-05-07] MEDS: ROCEPHIN 2000 MG IV (09:08)
[2024-05-07] MEDS: PROTONIX 20 MG PO (09:09)
[2024-05-07] MEDS: TYLENOL 650 MG PO ×2 (09:09→15:58)
[2024-05-07] MEDS: FOLTX 1 TABLET PO (09:09)
[2024-05-07] MEDS: COREG 3.125 MG PO (09:09)
[2024-05-07] MEDS: PACERONE 200 MG PO (09:09)
[2024-05-07] MEDS: STERILE WATER FOR INJECTION 20 ML IV (09:09)
[2024-05-07] MEDS: FLUSH (NSS) 1 FLUSH IV ×2 (09:10→09:15)
[2024-05-07] MEDS: QUESTRAN 4 GRAM PO (09:10)
--- NOTE | 2024-05-07 09:11 | W.PN.ID1 ---
Date of Service
Date of Service: May 07, 2024
Today's Communication
Continue antibiotics for today.
Assessment / Plan
Bilateral Upper Extremity Weakness
- no osteo or epidural abscess seen on MRI imaging
Group C Strep bacteremia
LENI
Pacemaker
Chronic Thrombocytopenia
Dm2
- repeat blood cultures pending.
- 10/20 blood cultures 10 min apart both with group C strep
- TTE unrevealing.
- Continue with ceftriaxone for today.
- Follow white count & temperature curve.
����������������������������������������������������������
Chief Complaint
-: Bacteremia
Subjective / Review of Systems
Patient seen and examined. Reports general body discomfort.
Review of Systems: No Fever
Vital Signs / Physical Exam
Vital Signs
Vital Signs
Temp Pulse Resp BP Pulse Ox
98.2 F 60 14 111/56 93
05/07/24 07:34 05/07/24 07:17 05/07/24 07:34 05/07/24 06:00 05/07/24 07:17
Physical Exam
Constitutional: Comfortable, Chronically Ill and Non-toxic
Eyes: No Conjunctival Hemorrhage and Sclera Anicteric
Cardiovascular: Regular Rate and S1/S2; Negative S3/S4 or Murmur
Pulmonary: Clear; Negative Wheezes, Rales or Rhonchi
Gastrointestinal: Soft, Non Tender and Non Distended
Extremities: Edema (2+ upper extremity edema; 3+ right lower extremity edema)
Musculoskeletal: Other (Hx left AKA)
Skin: Warm and Dry; Negative Rash or Jaundice
Neurological: Awake and Alert
Psychological: Calm
Objective Data
Lab Data
Lab Results
05/07/24 04:45
05/07/24 04:45
Estimated Creat Clear 31 ml/min 05/07/24 04:45
Lactic Acid Cancelled 05/05/24 06:23
Total Bilirubin 1.9 mg/dl (0.2-1.3) H 05/07/24 04:45
AST 123 U/L (17-59) H 05/07/24 04:45
ALT 105 U/L (0-50) H 05/07/24 04:45
Alkaline Phosphatase 73 U/L (38-126) 05/07/24 04:45
Most recent labs reviewed.
Micro Results:
05/04/24 15:12 Blood Culture - Final
Blood/Venous Group C Streptococcus
Gram Stain - Final
05/04/24 15:21 Blood Culture - Final
Blood/Venous Group C Streptococcus
Gram Stain - Final
05/06/24 15:42 Blood Culture - Pending
Blood/Venous
05/06/24 15:41 Blood Culture - Pending
Blood/Venous
05/04/24 15:12 Urine Culture - Final
Urine
05/04/24 20:10 MRSA Screen - Final
Nose No Methicillin Resistant Staphylococcus aureus isolated.
Imaging:
05/06/2024 MRI cervical spine: There is reversal of cervical lordosis. Multilevel degenerative disc disease is noted. No evidence of discitis or osteomyelitis. No epidural abscess noted.
05/06/2024 CT head without contrast: No acute intracranial abnormality noted. A small right mastoid effusion is seen.
05/04/2024 CT abdomen/pelvis without contrast: Cholelithiasis with gallbladder wall thickening and some very cholecystic fluid is noted, raising the possibility for acute cholecystitis. Splenomegaly is seen. There is mild urinary bladder wall
thickening with a Cespedes catheter in place. Please see full dictation for additional detail.
Cardiac Imaging:
05/06/2024 ECHO (TTE): Normal left ventricular size, with mildly reduced systolic function, EF approximately 40%. Stage II diastolic dysfunction is noted. Right ventricle is normal. Pacemaker wires noted in the right ventricle. There is severe
biatrial dilatation. There is mild mitral valve regurgitation. No intracardiac mass or thrombus formation is seen.
[2024-05-07] MEDS: NOVOLOG FLEXPEN 5 UNITS SC ×3 (09:24→16:30)
[2024-05-07] MEDS: NOVOLOG FLEXPEN-MODERATE RESISTANCE 1 UNITS SC (09:24)
[2024-05-07 09:34] LABS: Glucose - Point of Care 180 mg/dl (70-99)
[2024-05-07] MEDS: ASPIR LOW (ENTERIC COATED) PO (09:49)
--- NOTE | 2024-05-07 10:15 | W.PN.HOSP.TC ---
Today's Communication/Plan
-
IV antibiotics. MRI of the brain. Neurosurgery eval. Nephrology consult
Assessment / Plan
Assessment / Plan
Physical exam:
General: Acutely ill. Less toxic appearance.
HEENT: Normocephalic, Atraumatic and Moist Mucous Membranes
Respiratory: Clear to Auscultation; Negative Wheezes, Rales or Rhonchi
Cardiac: Regular Rhythm and S1/S2
GI: Soft, Nontender and Nondistended
Musculoskeletal: Left AKA. No Clubbing, No Cyanosis and No Edema. Remains with significant amount of weakness in upper extremities.
Neuro: Awake, Alert and Oriented, weakness present b/l UE> b/l LE
Psych: Calm
Echocardiogram:
1. Left ventricle: Normal size and mildly reduced systolic function with an
estimated ejection fraction of 40-45% by Pond's method of discs. The left
ventricle is globally hypokinetic. Stage II diastolic dysfunction is noted.
2. Right ventricle: Normal. A pacemaker wire is noted in the right ventricle
3. Atria: Severe biatrial dilation
4. Mitral valve: Mild mitral regurgitation
5. Aortic valve: Trace aortic insufficiency
6. Tricuspid valve: Moderate tricuspid regurgitation
7. Change this have occurred when compared to the most recent echocardiogram
from 05/05/2023. The estimated ejection fraction on the prior study was 55%
and is 40-45% on the present study. The ventricle is globally hypokinetic.
A/P:
Sepsis unclear source with Strept Bacteremia:
Stop IV fluids
Continue IV ceftriaxone 2 g daily
Cervical MRI no spinal epidural abscess but evidence of cervical stenosis.
Transthoracic echo with no vegetations.
Exchanged Cespedes catheter
No evidence of cholecystitis clinically.
ID on board
Discussed with son and at bedside today on 05/07
Upper extremity weakness probably related to cervical stenosis but rule out stroke and or septic emboli or metabolic encephalopathy contributing:
Given patient inability to even feed himself, requested neurology and neurosurgery consultation-discussed with neurology and neurosurgery.
Seen MRI of the cervical spine and significant spinal stenosis.
Plan for MRI of the brain
LENI on CKD:
Creatinine 1.7 today.
Nephrology consult-discussed with nephrology via [place] text today
Avoid nephrotoxic
Continue to monitor renal function
Hypokalemia:
Replace and trend
Anemia:
Hemoglobin 7.9
Continue to monitor hemoglobin closely
Elevated LFTs:
Continue to trend
Holding statin
Hematuria:
Improving
Traumatic Cespedes catheter exchange and also underlying use of Eliquis
Hold Eliquis and aspirin and resume in a.m. if no further hematuria and once brain MRI is back
Monitor hemoglobin
Hypotension:
Improved
Stop IV fluids and hold antihypertensives
Paroxysmal atrial fibrillation:
On rate control, carvedilol 3.125 mg twice a day with holding parameters
IV Lopressor as needed
Continue antiarrhythmic, amiodarone 200 mg daily
Continue anticoagulation but now on hold, Eliquis 2.5 mg twice a day
Diabetes mellitus type 2:
Resume home long-acting and short acting.
Continue insulin sliding scale
Hyperlipidemia:
Hold statin due to elevated lft
Chronic HFpEF:
Hold diuretics
Monitor volume status
CAD/PVD/CVA:
Continue anti-ischemic regimen
Chronic pain syndrome/spinal stenosis/chronic narcotics dependence:
Continue fentanyl patch
IV Dilaudid as needed
History of ulcerative colitis/GERD/GI bleed:
Monitor GI symptoms
Chronic thrombocytopenia:
Monitor platelet count and signs of bleeding
Platelet count 48 today
DVT prophylaxis:
SCD's
CODE STATUS:
Full code
Total time spent on today's encounter was 52 minutes which included time spent in counseling the patient/family regarding diagnosis and treatment plan as listed above, goals of care, and symptom management. Case was discussed with nursing staff,
specialists, and care coordinators/case management. All labs and imaging personally reviewed by me. Remainder the time spent in detailed review of previous records, lab data, imaging, and other medical provider documentation.
Anticipated Discharge: > 48 hours
Subjective/Interval History
-
Date of Service: May 07, 2024
Patient still weak in upper extremities. Afebrile
Objective Data
-
Labs:
Laboratory Results
05/07/24
04:45
WBC 4.3 L
Hgb 7.9 L
Hct 24.9 L
Plt Count 48 L
Sodium 138
Potassium 3.3 L
Chloride 101
Carbon Dioxide 25
BUN 67 H
Creatinine 1.7 H
Glucose 195 H
Calcium 9.0
Total Bilirubin 1.9 H
AST 123 H
ALT 105 H
Alkaline Phosphatase 73
Vital Signs:
Vital Signs
Temp Pulse Resp BP Pulse Ox
98.2 F 60 14 119/58 93
05/07/24 07:34 05/07/24 09:09 05/07/24 07:34 05/07/24 09:09 05/07/24 07:17
I&O
05/06/24 05/07/24 05/08/24
06:59 06:59 06:59
Intake Total 780 / 780 600 / 600
Output Total 525 / 525 350 / 350 250 / 250
Balance 255 / 255 250 / 250 -250 / -250
[2024-05-07 12:21] LABS: Glucose - Point of Care 264 mg/dl (70-99)
--- NOTE | 2024-05-07 12:25 | CON.NS ---
Chief Complaint
-
Upper extremity weakness and pain
History of Present Illness
This is an 83-year-old male admitted with fevers. He stated that he had upper extremity weakness began on the same day as admission. MRI cervical spine was obtained by the primary service. Neurosurgery was consulted for such. Currently he notes
upper extremity weakness proximally. He is able to use a phone. He has a left AKA. States his right leg feels normal unknown if he is able to ambulate.
Medication and Allergies
Home Medications
Home Medications
�Medication �Instructions �Recorded
atorvastatin 80 mg tablet 80 mg PO DAILY@2030 High 03/30/23
Cholesterol
folic acid-vit B6-vit B12 2.5 1 tab PO DAILY Supplement 04/16/23
mg-25 mg-2 mg tablet (Folbic)
carvedilol 3.125 mg tablet 3.125 mg PO BID #60 tabs 04/17/23
amiodarone 200 mg tablet 200 mg PO DAILY Arrhythmia 05/04/23
acetaminophen 325 mg tablet 650 mg PO Q4HPRN PRN mild 06/22/23
pain/fever>100.4
bisacodyl 10 mg rectal suppository 10 mg IN DAILYPRN PRN 3 days no 06/22/23
bm, lactulose ineffective
fluticasone propionate 50 1 spray intranasal QPM Allergies 06/22/23
mcg/actuation nasal
spray,suspension
insulin lispro 100 unit/mL 0 - 12 sliding scale dose SC 06/22/23
subcutaneous pen (Humalog KwikPen TID@0730,1230,1730 Diabetes
(U-100) Insulin)
lactulose 20 gram/30 mL oral 20 g PO HSPRN PRN Constipation 06/22/23
solution
naloxone 4 mg/actuation nasal 4 mg intranasal DAILYPRN PRN 06/22/23
spray (Narcan) opioid overdose
pregabalin 75 mg capsule (Lyrica) 75 mg PO TID Pain 06/22/23
azathioprine 75 mg tablet 75 mg PO DAILY ulcerative colitis 09/14/23
apixaban 2.5 mg tablet (Eliquis) 2.5 mg PO BID #60 tabs 09/23/23
fentanyl 25 mcg/hr transdermal 1 patch transdermal Q72H Pain #1 ea 09/23/23
patch
tamsulosin 0.4 mg capsule 0.4 mg PO DAILY 30 days #30 caps 09/23/23
ipratropium 0.5 mg-albuterol 3 mg 3 ml inhalation R BID 11/14/23
(2.5 mg base)/3 mL nebulization Lung/Breathing Issues
soln
aspirin 81 mg tablet,delayed 81 mg PO DAILY #1 tab 11/27/23
release
bumetanide 0.5 mg tablet 0.5 mg PO DAILY Fluid 11/27/23
Retention/Swelling #0 tabs
insulin glargine 100 unit/mL 5 unit (0.05 mL) SC DAILY@2030 11/27/23
subcutaneous solution (Lantus Diabetes #0 mL
U-100 Insulin)
cholestyramine (with sugar) 4 gram 4 g PO DAILY High Cholesterol 05/04/24
powder for susp in a packet
(Questran)
diphenoxylate-atropine 2.5 1 tab PO DAILYPRN PRN diarrhea 05/04/24
mg-0.025 mg tablet
insulin lispro 100 unit/mL 5 unit SC TID Diabetes 05/04/24
subcutaneous pen (Humalog KwikPen
(U-100) Insulin)
ipratropium 0.5 mg-albuterol 3 mg 3 ml inhalation R Q6HPRN PRN cough 05/04/24
(2.5 mg base)/3 mL nebulization
soln
loperamide 2 mg tablet 2 mg PO Q6HPRN PRN diarrhea 05/04/24
metolazone 2.5 mg tablet 2.5 mg PO DAILY Pain 05/04/24
mineral oil 1 applic topical DAILY right foot 05/04/24
pantoprazole 20 mg tablet,delayed 20 mg PO DAILY Gastrointestinal 05/04/24
release Issue
therapeutic multivitamin 1 tab PO DAILY Supplement 05/04/24
Allergies
Allergies
Allergy/AdvReac Type Severity Reaction Status Date / Time
Sulfa (Sulfonamide Allergy Hives Verified 05/04/24 14:45
Antibiotics)
sulfasalazine Allergy mother Verified 05/04/24 14:45
states
hives
Physical Exam
-
Exam:
Patient is awake and alert
Diffuse weakness in upper extremities and lower extremity
Patient has severe pain with passive range of motion of upper extremities.
Motor strength testing reveals 3-4 out of 5 weakness in bilateral upper extremities and right lower extremity in all motor groups in all motor groups
Sensory exam is normal
No Clint's
MRI of the cervical spine reveals 2 level cervical stenosis at C3-4 and C4-5. I am unable to tell if there is any hyperintense signal in the spinal cord at these levels.
Problems
-
Problem Status Onset Code
Acute UTI N39.0
Sepsis A41.9
Assessment / Plan
-
Cervical stenosis and upper extremity weakness
1. Highly unlikely that his cervical stenosis is the cause of his symptoms. Highly atypical presentation for cervical stenosis
2. Symptoms appear to be affecting his proximal musculature more than the distal musculature. He has pain with range of motion and palpation of proximal musculature. Raises suspicion for inflammatory process.
3. No acute neurosurgical interventions, await MRI brain ordered by neurology
4. Will follow for results of MRI
[2024-05-07] MEDS: NOVOLOG FLEXPEN-MODERATE RESISTANCE 5 UNITS SC (13:01)
--- NOTE | 2024-05-07 13:15 | W.CON.NEPH ---
Addendum entered and electronically signed by Magda Dillon MD 05/07/24 14:41:
Physical Exam
General: Awake, Alert, Oriented, AOx3, No Distress and Nontoxic
HEENT: EOMI, Anicteric,
Respiratory: Clear anteriorly, non labored
Cardiac: S1/S2 and Regular Rate/Rhythm
Breast: Deferred by me
Abdomen: Soft, Nontender and Nondistended
Genito-urinary: mild hematuria Urine (zaragoza bag)
Musculoskeletal: Edema (3+ rt le edema), left AKA
Skin: No Rash, Warm and Dry
Neuro: AAOx3, UE weakness
Psych: Mood/afflect pleasant, and Appropriate
Original Note:
Consultation
-
Date/Time Consultation Requested: 05/07/24 1027
Date/Time Consultation Performed: 05/07/24 1400
Requesting Provider: [place] Andres
Performing Provider: Magda Mansfield
Reason for Consultation: LENI
Medical History
-
Chief Complaint: Fever
History of Present Illness:
82 years old male with history of CAD s/p CABG 2010, IDDM, Afin on Eliquis, coreg, CKD 3 baseline 1.2-1.3, CHFpEF on bumex, PVD s/p left AKA, UC on azithioprine, questran, chronic thrombocytopenia, urinary retention with chronic zaragoza presenting
here 05/04 for two days of malaise, lethargy, subjective fevers and acute weakness of the bilateral upper upper extremities. He noted to have group C strep bacteremia and concern of possible OM/epidural abscess. MRI of C spine shows no acute issues
other than DJD. he is on Rocephin since admit. His cr was at 1.6 on admit and improved to 1.3 however for last 2das has steady increase and cr upto 1.7 despite IVF hence nephrology consulted. His BPs are sometimes in 90 ranges. Note he also has
acute on chr thrombocytopenia. He currently offers no CP or sob. On RA. No BM yet. No abd pian or n/v. Family feeding him.
Past Medical History
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 CABG, HLD, GERD, HX GI bleed, DM2, chronic LBBB, subdural hematoma after
mechanical fall, tiny old lacunar infarcts again noted in the right cindy and right Ginger/external capsule on ct head , chronic pain syndrome secondary to spinal stenosis on chronic opiate patch, anxiety, ulcerative colitis, chronic ambulatory
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
Past Surgical History: Other (Left AKA secondary to diabetic osteo May 2023 Medtronic pacemaker 04/16/2023 tachybradycardia syndrome CABG x 4 PTCA with Stent x 2 DCCV T&A L EDILBERTO)
Social History
Tobacco: Non-Smoker
Alcohol: Occasional
Drug: None
Personal:
Living: Senior [facility]
Employment: Retired
Family History
no ckd
Family History: Not Pertinent
Allergies / Home Medications
Allergy/AdvReac Type Severity Reaction Status Date / Time
Sulfa (Sulfonamide Allergy Hives Verified 05/04/24 14:45
Antibiotics)
sulfasalazine Allergy mother Verified 05/04/24 14:45
states
hives
�Medication �Instructions �Recorded �Confirmed �Type
atorvastatin 80 mg tablet 80 mg PO DAILY@2030 High 03/30/23 05/04/24 History
Cholesterol
folic acid-vit B6-vit B12 2.5 1 tab PO DAILY Supplement 04/16/23 05/04/24 History
mg-25 mg-2 mg tablet (Folbic)
carvedilol 3.125 mg tablet 3.125 mg PO BID #60 tabs 04/17/23 05/04/24 Rx
amiodarone 200 mg tablet 200 mg PO DAILY Arrhythmia 05/04/23 05/04/24 History
acetaminophen 325 mg tablet 650 mg PO Q4HPRN PRN mild 06/22/23 05/04/24 History
pain/fever>100.4
bisacodyl 10 mg rectal suppository 10 mg [place] DAILYPRN PRN 3 days no 06/22/23 05/04/24 History
bm, lactulose ineffective
fluticasone propionate 50 1 spray intranasal QPM Allergies 06/22/23 05/04/24 History
mcg/actuation nasal
spray,suspension
insulin lispro 100 unit/mL 0 - 12 sliding scale dose SC 06/22/23 05/04/24 History
subcutaneous pen (Humalog KwikPen TID@0730,1230,1730 Diabetes
(U-100) Insulin)
lactulose 20 gram/30 mL oral 20 g PO HSPRN PRN Constipation 06/22/23 05/04/24 History
solution
naloxone 4 mg/actuation nasal 4 mg intranasal DAILYPRN PRN 06/22/23 05/04/24 History
spray (Narcan) opioid overdose
pregabalin 75 mg capsule (Lyrica) 75 mg PO TID Pain 06/22/23 05/04/24 History
azathioprine 75 mg tablet 75 mg PO DAILY ulcerative colitis 09/14/23 05/04/24 History
apixaban 2.5 mg tablet (Eliquis) 2.5 mg PO BID #60 tabs 09/23/23 05/04/24 Rx
fentanyl 25 mcg/hr transdermal 1 patch transdermal Q72H Pain #1 ea 09/23/23 05/04/24 Rx
patch
tamsulosin 0.4 mg capsule 0.4 mg PO DAILY 30 days #30 caps 09/23/23 05/04/24 Rx
ipratropium 0.5 mg-albuterol 3 mg 3 ml inhalation R BID 11/14/23 05/04/24 History
(2.5 mg base)/3 mL nebulization Lung/Breathing Issues
soln
aspirin 81 mg tablet,delayed 81 mg PO DAILY #1 tab 11/27/23 05/04/24 Rx
release
bumetanide 0.5 mg tablet 0.5 mg PO DAILY Fluid 11/27/23 05/04/24 Rx
Retention/Swelling #0 tabs
insulin glargine 100 unit/mL 5 unit (0.05 mL) SC DAILY@2030 11/27/23 05/04/24 Rx
subcutaneous solution (Lantus Diabetes #0 mL
U-100 Insulin)
cholestyramine (with sugar) 4 gram 4 g PO DAILY High Cholesterol 05/04/24 05/04/24 History
powder for susp in a packet
(Questran)
diphenoxylate-atropine 2.5 1 tab PO DAILYPRN PRN diarrhea 05/04/24 05/04/24 History
mg-0.025 mg tablet
insulin lispro 100 unit/mL 5 unit SC TID Diabetes 05/04/24 05/04/24 History
subcutaneous pen (Humalog KwikPen
(U-100) Insulin)
ipratropium 0.5 mg-albuterol 3 mg 3 ml inhalation R Q6HPRN PRN cough 05/04/24 05/04/24 History
(2.5 mg base)/3 mL nebulization
soln
loperamide 2 mg tablet 2 mg PO Q6HPRN PRN diarrhea 05/04/24 05/04/24 History
metolazone 2.5 mg tablet 2.5 mg PO DAILY Pain 05/04/24 05/04/24 History
mineral oil 1 applic topical DAILY right foot 05/04/24 05/04/24 History
pantoprazole 20 mg tablet,delayed 20 mg PO DAILY Gastrointestinal 05/04/24 05/04/24 History
release Issue
therapeutic multivitamin 1 tab PO DAILY Supplement 05/04/24 05/04/24 History
Physical Exam
Vital Signs
Vital Signs
Temp Pulse Resp BP Pulse Ox
98.2 F 60 18 95/53 95
05/07/24 11:13 05/07/24 12:00 05/07/24 12:00 05/07/24 12:00 05/07/24 12:00
Lab Results
WBC 4.3 10^3/uL (4.8-10.8) L 05/07/24 04:45
RBC 3.26 10^6/uL (4.70-6.10) L 05/07/24 04:45
Hgb 7.9 g/dL (13.0-18.0) L 05/07/24 04:45
Hct 24.9 % (39.0-52.0) L 05/07/24 04:45
Plt Count 48 10^3/uL (130-400) L 05/07/24 04:45
Sodium 138 mmol/L (135-145) 05/07/24 04:45
Potassium 3.3 mmol/L (3.5-5.1) L 05/07/24 04:45
Chloride 101 mmol/L (98-107) 05/07/24 04:45
Carbon Dioxide 25 mmol/L (22-30) 05/07/24 04:45
BUN 67 mg/dl (9-20) H 05/07/24 04:45
Creatinine 1.7 mg/dL (0.7-1.3) H 05/07/24 04:45
eGFR 39.51 05/07/24 04:45
Glucose 195 mg/dl (70-99) H 05/07/24 04:45
Calcium 9.0 mg/dl (8.4-10.2) 05/07/24 04:45
Albumin 3.0 g/dl (3.5-5.0) L 05/07/24 04:45
MRI c spine:
Impression:
Reversal of the cervical lordosis. Multilevel degenerative disc disease. No evidence of discitis or osteomyelitis. No epidural abscess.
Please refer to above discussion for specific and additional details at individual levels.
Recommend nonemergent follow-up thyroid ultrasound.
abd/pelvis CT with out IV contrast:
IMPRESSION:
Limited examination due to the patient's arms down position and the lack of oral and intravenous contrast.
1. Cholelithiasis with gallbladder wall thickening and some pericholecystic fluid, raising the possibility for acute cholecystitis in the appropriate clinical setting.
2. Splenomegaly.
3. Mild urinary bladder wall thickening with a Zaragoza catheter in place. Correlation with a urinalysis can be performed.
4. Large amount of rectal stool and mild rectal wall thickening suggesting stercoral colitis.
Assessment/Plan
-
Assessment:
Sepsis with Strept Bacteremia
Upper extremity weakness
Hematuria:? Traumatic Zaragoza catheter exchange and also underlying use of Eliquis
Hypotension
LENI on CKD-baseline cr 1-1.3
hypokalemia
Abnormal thyroid test
Anemia
Acute on Chronic thrombocytopenia
Paroxysmal atrial fibrillation
Diabetes mellitus type 2
Hyperlipidemia
Chronic HFpEF
CAD/PVD/CVA
Chronic pain syndrome/spinal stenosis/chronic narcotics dependence
History of ulcerative colitis/GERD/GI bleed
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
CAD/IN/CABG 2009
Chronic LBBB
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
Chronic right lower extremity lymphedema
Hx CVA per CT head
Hx subdural hematoma after mechanical fall
Hx orthostatic hypotension/HTN
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
Chronic pain syndrome secondary to spinal stenosis on chronic opiate patch
GERD/Hx GI bleed
Hx ulcerative colitis- azathioprine
Anxiety
Chronic ambulatory dysfunction with chronic foot and ankle deformities
Hypoalbuminemia
Plan:
A/w UE weakness, sepsis and group C bacteremia
LENI-cr steady increase in last few days
suspect prerenal specially with low BPs vs infection
check UA, U eosinopils, ASO titer, also complements to r/o ICGN
monitor UOP, ?oliguric with zaragoza
CT on admit with out hydro
wt increasing since admit with known CHF , echo noted EF 40-45%
resp status seem stable holding bumex, low threshold to resume
bp are soft, coreg with holding parameters, prn IVF
thrombocytopenia-chronic was seen by heme before
dose meds renally
TSH low and high FT4 on Amiodarone-defer to primary
avoid nephrotoxins
reaplce k
d/w and son
follow labs
--- NOTE | 2024-05-07 15:35 | PTCARENOTE ---
Patient AAOx3, KEWEENAW-B/L hearing aids in. RA. VSS. +3 scrotal edema, sling placed for support. Patient having diarrhea (chronic). Urine now yellow with some small blood clots. Urine studies sent. Aspirin and eliquis on hold. Will continue to closely
monitor.
[2024-05-07 15:36] LABS: Urine Albumin 1+ (Neg - Trace); Urine Bilirubin Negative (Negative); Urine Character Very Cloudy (Clear); Urine Color Amber; Urine Glucose Negative (Negative); Urine Ketone Negative (Negative); Urine Leukocyte 2+ (Negative); Urine Nitrite Negative (Negative); Urine Occult Blood 4+ (Negative); Urine Specific Gravity 1.015 (<1.030); Urine Urobilinogen Negative (Neg - 1+)
[2024-05-07 15:45] LABS: Urine Squamous Cell 0-2 /LPF (Few); Urine Yeast Few (Negative)
[2024-05-07 15:46] LABS: Urine Bacteria Few (Negative); Urine Red Blood Cell 60-70 /HPF (0-2)
[2024-05-07 15:55] LABS: Urine Sodium 13 mmol/L (30-90)
[2024-05-07 16:10] LABS: Body Fluid for Eosinophils No Eosinophils seen
[2024-05-07] MEDS: NOVOLOG FLEXPEN-MODERATE RESISTANCE 3 UNITS SC (16:30)
[2024-05-07 16:40] LABS: Glucose - Point of Care 248 mg/dl (70-99)
[2024-05-07] MEDS: DURAGESIC 25 MCG/HR PATCH 1 PATCH TRANSDERM (19:58)
[2024-05-07] MEDS: LANTUS 0.05 UNITS SC (20:14)
[2024-05-07 20:25] LABS: Glucose - Point of Care 251 mg/dl (70-99)
[2024-05-07] MEDS: COREG PO (20:46)
[2024-05-08] VITALS (12 sets, daily range): BP systolic 102–131; BP diastolic 51–97; BMI 26.8
[2024-05-08] MEDS: DILAUDID 0.25 MG IV ×2 (00:12→18:49)
[2024-05-08 05:52] LABS: % Eosinophils 0.6 % (0-6); % Immature Granulocytes 0.4 % (0-0.5); % Lymphocytes 5.1 % (20.5-51.1); % Monocytes 8.8 % (1.7-9.3); % Neutrophils 85.1 % (42.2-75.2); Absolute Lymphocytes 0.2 10^3/uL (1.2-3.4); Absolute Monocytes 0.4 10^3/uL (0.1-0.6); Hematocrit 23.1 % (39.0-52.0); Hemoglobin 7.9 g/dL (13.0-18.0); Mean Corp Hgb Conc. 34.2 g/dL (33.0-37.0); Mean Corpuscular Hgb 24.8 pg (27.0-31.0); Mean Corpuscular Volume 72.4 fL (80.0-94.0); Nucleated Red Blood Cells % 0 % (-); Platelet Count 59 10^3/uL (130-400); Red Blood Cell Count 3.19 10^6/uL (4.70-6.10); White Blood Cell Count 4.7 10^3/uL (4.8-10.8)
[2024-05-08 06:10] LABS: Blood Urea Nitrogen 75 mg/dl (9-20); Calcium 8.9 mg/dl (8.4-10.2); Carbon Dioxide 23 mmol/L (22-30); Chloride 101 mmol/L (98-107); Estimated Creatinine Clearance 31 ml/min; Glucose 220 mg/dl (70-99); Potassium 3.4 mmol/L (3.5-5.1); Sodium 136 mmol/L (135-145); eGFR 39.51
[2024-05-08] MEDS: DUONEB 3 ML INH ×3 (07:26→19:36)
[2024-05-08 07:29] LABS: Glucose - Point of Care 214 mg/dl (70-99)
[2024-05-08 08:10] LABS: ASO Quantitative 400 IU/ml (<200); Anti Streptolysin Positive (Negative)
--- NOTE | 2024-05-08 09:30 | W.PN.HOSP.TC ---
Today's Communication/Plan
-
Continue IV antibiotics. MRI of the brain pending.
Assessment / Plan
Assessment / Plan
Physical exam:
General: Acutely ill. Less toxic appearance.
HEENT: Normocephalic, Atraumatic and Moist Mucous Membranes
Respiratory: Clear to Auscultation; Negative Wheezes, Rales or Rhonchi
Cardiac: Regular Rhythm and S1/S2
GI: Soft, Nontender and Nondistended
Musculoskeletal: Left AKA. No Clubbing, No Cyanosis and No Edema. Remains with significant amount of weakness in upper extremities.
Neuro: Awake, Alert and Oriented, weakness present b/l UE> b/l LE
Psych: Calm
Echocardiogram:
1. Left ventricle: Normal size and mildly reduced systolic function with an
estimated ejection fraction of 40-45% by Pond's method of discs. The left
ventricle is globally hypokinetic. Stage II diastolic dysfunction is noted.
2. Right ventricle: Normal. A pacemaker wire is noted in the right ventricle
3. Atria: Severe biatrial dilation
4. Mitral valve: Mild mitral regurgitation
5. Aortic valve: Trace aortic insufficiency
6. Tricuspid valve: Moderate tricuspid regurgitation
7. Change this have occurred when compared to the most recent echocardiogram
from 05/05/2023. The estimated ejection fraction on the prior study was 55%
and is 40-45% on the present study. The ventricle is globally hypokinetic.
A/P:
Sepsis with Strept Bacteremia:
Continue IV ceftriaxone 2 g daily
Cervical MRI no SEA.
Transthoracic echo with no vegetations.
Exchanged Cespedes catheter
No evidence of cholecystitis clinically.
ID on board
Discussed with son yesterday and at bedside today on 05/08
Upper extremity weakness related to either cervical stenosis vs ?stroke and or ?septic emboli:
Appreciated neurology and neurosurgery consults
Seen MRI of the cervical spine and significant spinal stenosis.
Plan for MRI of the brain- still pending
Continue aspirin
LENI on CKD:
Creatinine 1.7 today.
Nephrology consult-discussed with nephrology via [facility] text today
Avoid nephrotoxic
Continue to monitor renal function
Hypokalemia:
Replace and trend
Anemia:
Hemoglobin 7.9
Continue to monitor hemoglobin closely
Elevated LFTs:
Continue to trend
Resume statin
Hematuria:
Resolved
Traumatic Cespedes catheter exchange and also underlying use of Eliquis
Resume Eliquis and aspirin
Monitor hemoglobin
Hypotension:
Improved
Off IV fluids
Paroxysmal atrial fibrillation:
On rate control, carvedilol 3.125 mg twice a day with holding parameters
IV Lopressor as needed
Continue antiarrhythmic, amiodarone 200 mg daily
Continue anticoagulation, Eliquis 2.5 mg twice a day
Diabetes mellitus type 2:
Resume home long-acting and short acting.
Continue insulin sliding scale
Hyperlipidemia:
Resume statins
Chronic HFpEF:
Hold diuretics but likely resume in am if renal function stable
Monitor volume status
CAD/PVD/CVA:
Continue anti-ischemic regimen
Chronic pain syndrome/spinal stenosis/chronic narcotics dependence:
Continue fentanyl patch
IV Dilaudid as needed
History of ulcerative colitis/GERD/GI bleed:
Monitor GI symptoms
Chronic thrombocytopenia:
Monitor platelet count and signs of bleeding
Platelet count 59 today
Abnormal tsh:
Repeat in am
DVT prophylaxis:
SCD's
CODE STATUS:
Full code
Total time spent on today's encounter was 52 minutes which included time spent in counseling the patient/family regarding diagnosis and treatment plan as listed above, goals of care, and symptom management. Case was discussed with nursing staff,
specialists, and care coordinators/case management. All labs and imaging personally reviewed by me. Remainder the time spent in detailed review of previous records, lab data, imaging, and other medical provider documentation.
Anticipated Discharge: > 48 hours
Subjective/Interval History
-
Date of Service: May 08, 2024
Patient still has upper extremity weakness. Overall very weak. Afebrile. No abdominal pain nausea vomiting. No hematuria.
Objective Data
-
Labs:
Laboratory Results
05/08/24
04:53
WBC 4.7 L
Hgb 7.9 L
Hct 23.1 L
Plt Count 59 L D
Sodium 136
Potassium 3.4 L
Chloride 101
Carbon Dioxide 23
BUN 75 H
Creatinine 1.7 H
Glucose 220 H
Calcium 8.9
Vital Signs:
Vital Signs
Temp Pulse Resp BP Pulse Ox
98.7 F 60 15 118/65 97
05/08/24 07:40 05/08/24 08:00 05/08/24 08:00 05/08/24 08:00 05/08/24 08:00
I&O
05/07/24 05/08/24 05/09/24
06:59 06:59 06:59
Intake Total 600 / 600 480 / 480 240 / 240
Output Total 350 / 350 525 / 525
Balance 250 / 250 -45 / -45 240 / 240
[2024-05-08] MEDS: NOVOLOG FLEXPEN-MODERATE RESISTANCE 3 UNITS SC ×2 (09:31→17:50)
[2024-05-08] MEDS: NOVOLOG FLEXPEN 5 UNITS SC ×3 (09:32→17:51)
[2024-05-08] MEDS: ROCEPHIN 2000 MG IV (09:33)
[2024-05-08] MEDS: STERILE WATER FOR INJECTION 20 ML IV (09:33)
[2024-05-08] MEDS: PROTONIX 20 MG PO (09:37)
[2024-05-08] MEDS: FOLTX 1 TABLET PO (09:37)
[2024-05-08] MEDS: COREG 3.125 MG PO (09:37)
[2024-05-08] MEDS: QUESTRAN 4 GRAM PO (09:38)
[2024-05-08] MEDS: PACERONE 200 MG PO (09:38)
[2024-05-08] MEDS: ASPIR LOW (ENTERIC COATED) 81 MG PO (09:38)
--- NOTE | 2024-05-08 10:34 | W.PN.ID1 ---
Date of Service
Date of Service: May 08, 2024
Today's Communication
Continue antibiotics
Assessment / Plan
Bilateral Upper Extremity Weakness
- no osteo or epidural abscess seen on MRI imaging
Group C Strep bacteremia
-Repeat blood cultures no growth x 24 hours
LENI
Hx Pacemaker
Chronic Thrombocytopenia
Dm2
- repeat blood cultures pending but show no growth x 24 hours
- 10/20 blood cultures 10 min apart both with group C strep
- TTE unrevealing.
- Continue with ceftriaxone for today.
- Follow white count & temperature curve.
����������������������������������������������������������
Chief Complaint
-: Bacteremia
Subjective / Review of Systems
Review of Systems: No Fever and No Chills
Vital Signs / Physical Exam
Vital Signs
Vital Signs
Temp Pulse Resp BP Pulse Ox
98.7 F 60 16 118/65 97
05/08/24 07:40 05/08/24 09:58 05/08/24 09:58 05/08/24 08:00 05/08/24 08:00
Physical Exam
Constitutional: Comfortable, Chronically Ill and Non-toxic
Eyes: No Conjunctival Hemorrhage and Sclera Anicteric
Cardiovascular: Regular Rate and S1/S2
Pulmonary: Clear and Non Labored; Negative Wheezes, Rales or Rhonchi
Gastrointestinal: Soft, Non Tender and Non Distended
Extremities: Edema (2+ upper extremity edema; 3+ right lower extremity edema)
Musculoskeletal: Other (Hx left AKA)
Skin: Warm and Dry; Negative Rash or Jaundice
Neurological: Awake and Alert
Psychological: Calm
Objective Data
Lab Data
Lab Results
05/08/24 04:53
05/08/24 04:53
Estimated Creat Clear 31 ml/min 05/08/24 04:53
Lactic Acid Cancelled 05/05/24 06:23
Total Bilirubin 1.9 mg/dl (0.2-1.3) H 05/07/24 04:45
AST 123 U/L (17-59) H 05/07/24 04:45
ALT 105 U/L (0-50) H 05/07/24 04:45
Alkaline Phosphatase 73 U/L (38-126) 05/07/24 04:45
Most recent labs reviewed.
Micro Results:
05/06/24 15:42 Blood Culture - Preliminary
Blood/Venous No Growth in 24 hours- Final report to follow
05/06/24 15:41 Blood Culture - Preliminary
Blood/Venous No Growth in 24 hours- Final report to follow
05/04/24 15:12 Blood Culture - Final
Blood/Venous Group C Streptococcus
Gram Stain - Final
05/04/24 15:21 Blood Culture - Final
Blood/Venous Group C Streptococcus
Gram Stain - Final
05/04/24 15:12 Urine Culture - Final
Urine
05/04/24 20:10 MRSA Screen - Final
Nose No Methicillin Resistant Staphylococcus aureus isolated.
Imaging:
05/06/2024 MRI cervical spine: There is reversal of cervical lordosis. Multilevel degenerative disc disease is noted. No evidence of discitis or osteomyelitis. No epidural abscess noted.
05/06/2024 CT head without contrast: No acute intracranial abnormality noted. A small right mastoid effusion is seen.
05/04/2024 CT abdomen/pelvis without contrast: Cholelithiasis with gallbladder wall thickening and some very cholecystic fluid is noted, raising the possibility for acute cholecystitis. Splenomegaly is seen. There is mild urinary bladder wall
thickening with a Cespedes catheter in place. Please see full dictation for additional detail.
Cardiac Imaging:
05/06/2024 ECHO (TTE): Normal left ventricular size, with mildly reduced systolic function, EF approximately 40%. Stage II diastolic dysfunction is noted. Right ventricle is normal. Pacemaker wires noted in the right ventricle. There is severe
biatrial dilatation. There is mild mitral valve regurgitation. No intracardiac mass or thrombus formation is seen.
[2024-05-08] MEDS: TYLENOL 650 MG PO (11:09)
[2024-05-08] MEDS: IMODIUM 2 MG PO ×2 (11:09→18:49)
[2024-05-08] MEDS: FLUSH (NSS) IV ×2 (11:09→13:16)
--- NOTE | 2024-05-08 11:25 | W.PN.NEPH.PH ---
Today's Communication / Plan
-
follow labs , holding lasix
Assessment/Plan
-
Assessment:
Sepsis with Strept Bacteremia
Upper extremity weakness
Hematuria:? Traumatic Zaragoza catheter exchange and also underlying use of Eliquis
Hypotension
LENI on CKD-baseline cr 1-1.3
hypokalemia
Abnormal thyroid test
Anemia
Acute on Chronic thrombocytopenia
Paroxysmal atrial fibrillation
Diabetes mellitus type 2
Hyperlipidemia
Chronic HFpEF
CAD/PVD/CVA
Chronic pain syndrome/spinal stenosis/chronic narcotics dependence
History of ulcerative colitis/GERD/GI bleed
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
CAD/OH/CABG 2009
Chronic LBBB
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
Chronic right lower extremity lymphedema
Hx CVA per CT head
Hx subdural hematoma after mechanical fall
Hx orthostatic hypotension/HTN
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
Chronic pain syndrome secondary to spinal stenosis on chronic opiate patch
GERD/Hx GI bleed
Hx ulcerative colitis- azathioprine
Anxiety
Chronic ambulatory dysfunction with chronic foot and ankle deformities
Hypoalbuminemia
Plan:
A/w UE weakness, sepsis and group C bacteremia
LENI-cr steady increase in last few days , cr seem plataeu now
suspect prerenal specially with low BPs vs infection , U na low
microhematuria with zaragoza, neg U eosinopils, check ASO titer, complements to r/o ICGN
monitor UOP, non oliguric with zaragoza
CT on admit with out hydro
wt stable with known CHF , echo noted EF 40-45%
resp status seem stable holding bumex, low threshold to resume
bp are soft, coreg with holding parameters, prn IVF
thrombocytopenia-chronic was seen by heme before
dose meds renally, abx per ID
TSH low and high FT4 on Amiodarone-defer to primary
avoid nephrotoxins
reaplce k
follow labs
-
-
Date of Service: May 08, 2024
CC / HPI / ROS
-
Chief Complaint:
LENI
History of Present Illness:
cr no change at 1.7 but BUN up at 75
non oliguric with zaragoza
wt no sig change since admit
plt improving to 59k
bp stable
Review of Systems:
no sob
no n/v
still UE weakness can not feed himself
Labs
-
Labs:
WBC 4.7 10^3/uL (4.8-10.8) L 05/08/24 04:53
RBC 3.19 10^6/uL (4.70-6.10) L 05/08/24 04:53
Hgb 7.9 g/dL (13.0-18.0) L 05/08/24 04:53
Hct 23.1 % (39.0-52.0) L 05/08/24 04:53
Plt Count 59 10^3/uL (130-400) L D 05/08/24 04:53
Sodium 136 mmol/L (135-145) 05/08/24 04:53
Potassium 3.4 mmol/L (3.5-5.1) L 05/08/24 04:53
Chloride 101 mmol/L (98-107) 05/08/24 04:53
Carbon Dioxide 23 mmol/L (22-30) 05/08/24 04:53
BUN 75 mg/dl (9-20) H 05/08/24 04:53
Creatinine 1.7 mg/dL (0.7-1.3) H 05/08/24 04:53
eGFR 39.51 11/24/24 04:53
Glucose 220 mg/dl (70-99) H 05/08/24 04:53
Calcium 8.9 mg/dl (8.4-10.2) 05/08/24 04:53
Albumin 3.0 g/dl (3.5-5.0) L 05/07/24 04:45
Physical Exam
-
Vital Signs:
Vital Signs
Temp Pulse Resp BP Pulse Ox
98.7 F 60 16 118/65 97
05/08/24 07:40 05/08/24 09:58 05/08/24 09:58 05/08/24 08:00 05/08/24 08:00
Cardiovascular:: Regular rate and rhythm
Respiratory:: Bilateral: CTA (anteriorly)
Lung Excursion:: Normal
Abdomen:: Nontender and Soft
Extremity Edema:: +2: Right:
Zaragoza Catheter: Yes
Other Findings::
left AKA
[2024-05-08 12:00] LABS: Glucose - Point of Care 292 mg/dl (70-99)
[2024-05-08] MEDS: NOVOLOG FLEXPEN-MODERATE RESISTANCE 5 UNITS SC (13:16)
--- NOTE | 2024-05-08 14:27 | W.PN.NEURO.1 ---
Today's Communication / Plan
-
.
Subjective/Objective
Subjective Data
Date of Service: May 08, 2024
Neurology follow up note
CC: Arm weakness
Mr. Garcia endorses ongoing proximal arm weakness as new bilateral action hand tremor.
Brain MRI-pending.
Cr 1.7, Pl 59.
C spine MRI wo gloria-C3-4 and C4-C5 mod-severe central canal stenosis and cord compression.
PMH: Ulcerative colitis on Imuran, PA A-fib, anemia, ASCVD, HTN, DLP, DM, CKD, BPH
PSH:PPM, CABG x 4, Left AKA, tonsillectomy L EDILBERTO, bilateral cataract
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
FH: Not contributory to current presentation
All: Sulfa
ROS:Constitutional: Negative. Negative for chills, fever and unexpected weight change.
HENT: Negative for ear pain, hearing loss, tinnitus and trouble swallowing.
Eyes: Negative. Negative for photophobia, pain and visual disturbance.
Respiratory: Negative for cough, choking and shortness of breath.
Cardiovascular: Negative for chest pain, palpitations and leg swelling.
Gastrointestinal: Negative for abdominal pain and vomiting.
Endocrine: Negative. Negative for cold intolerance.
Genitourinary: Negative for dysuria, flank pain and urgency.
Musculoskeletal: Negative for back pain, gait problem, neck pain and neck stiffness.
Skin: Negative for rash.
Allergic/Immunologic: Negative. Negative for immunocompromised state.
Neurological: Positive for bilateral arm weakness negative for right leg weakness, hand tremor
Psychiatric/Behavioral: Negative for behavioral problems, confusion and hallucinations.
General: Well developed. In no acute distress.
Cardio: Regular rate and rhythm without murmur. Extremities are without cyanosis or edema.
Neuro:
Mental Status: Alert, oriented to person, place, and date. Normal attention and recall. Good fund of knowledge. Follows complex requests across the midline. Comprehension, naming, and repetition intact.
Cranial Nerves: . Pupils are equally round and reactive to light. EOMs full. Visual gonsales full to confrontation. No ptosis. No nystagmus. V1-V3 intact to light touch and pinprick bilaterally, symmetric. Face symmetric. Normal hearing AU.
The palate elevated well. SCMs and traps 5/5. Tongue midline. Minimal disorder
Motor: Normal bulk and tone. Upper severe proximal and distal paraparesis. No right leg drift. Left AKA
Sensory: Normal light touch in upper extremities
Coordination: BL action hand tremor.
Gait: deferred
Assessment and Plan:
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 Probable etiology�watershed infarcts.
II. 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
III. Pancytopenia
. Symmetric action hand tremor, likely amiodarone and albuterol side effect
- Continue Telemetry monitoring.
- rosario check TFTs
- Carotid Doppler US
- Resume aspirin 81 mg QD when able
- Brain MRI without gloria
- PT
- DVT prophylaxis.
I personally reviewed all radiology and labs along with past medical records pertinent to current medical problems. Total time spent in patient care is 35 minutes.
Thank you for allowing us to participate in the care of this patient. We will continue to follow. Please do not hesitate to contact us with any questions or concerns.
Objective Data
Vital Signs
Temp Pulse Resp BP Pulse Ox
36.6 C 60 16 118/65 97
05/08/24 12:00 05/08/24 09:58 05/08/24 09:58 05/08/24 08:00 05/08/24 08:00
Lab Results
05/08/24 04:53
05/08/24 04:53
Sodium 136 mmol/L (135-145) 05/08/24 04:53
Potassium 3.4 mmol/L (3.5-5.1) L 05/08/24 04:53
BUN 75 mg/dl (9-20) H 05/08/24 04:53
Glucose 220 mg/dl (70-99) H 05/08/24 04:53
Calcium 8.9 mg/dl (8.4-10.2) 05/08/24 04:53
Patient Allergies
Sulfa (Sulfonamide Antibiotics) Allergy (Verified 05/04/24 14:45)
Hives
sulfasalazine Allergy (Verified 05/04/24 14:45)
mother states hives
Vital Signs and Labs
-
Vital Signs and Labs:
Vital Signs
Temp Pulse Resp BP Pulse Ox
36.6 C 60 16 118/65 97
05/08/24 12:00 05/08/24 09:58 05/08/24 09:58 05/08/24 08:00 05/08/24 08:00
Lab Results
05/08/24 04:53
05/08/24 04:53
Sodium 136 mmol/L (135-145) 05/08/24 04:53
Potassium 3.4 mmol/L (3.5-5.1) L 05/08/24 04:53
BUN 75 mg/dl (9-20) H 05/08/24 04:53
Glucose 220 mg/dl (70-99) H 05/08/24 04:53
Calcium 8.9 mg/dl (8.4-10.2) 05/08/24 04:53
Medications
-
Medications:
Generic Name Dose Route Start Last Admin
Trade Name Freq PRN Reason Stop Dose Admin
Acetaminophen 650 mg 05/04/24 19:51 05/08/24 11:09
Acetaminophen 325 Mg Tablet PO 06/01/24 19:50 650 mg
Q4HPRN PRN Administration
mild pain/fever>100.4
Albuterol/Ipratropium 3 ml 05/04/24 19:51 05/08/24 09:58
Ipratropium 0.5/Albuterol 3 Mg (3 Ml Ampul) INH 3 ml
R Q6HPRN PRN Administration
cough
Protocol
Albuterol/Ipratropium 3 ml 05/06/24 20:00 05/08/24 07:26
Ipratropium 0.5/Albuterol 3 Mg (3 Ml Ampul) INH 3 ml
R BID CIPRIANO Administration
Protocol
Amiodarone HCl 200 mg 05/05/24 08:00 05/08/24 09:38
Amiodarone 200 Mg Tablet PO 06/02/24 07:59 200 mg
DAILY CIPRIANO Administration
Apixaban 2.5 mg 05/04/24 20:00 05/06/24 08:35
Apixaban (Eliquis) 2.5 Mg Tablet PO 06/01/24 19:59 Not Given
BID CIPRIANO
Aspirin 81 mg 05/05/24 08:00 05/08/24 09:38
Aspirin 81 Mg (Enteric Coated) Tablet PO 06/02/24 07:59 81 mg
DAILY CIPRIANO Administration
Atorvastatin Calcium 80 mg 05/04/24 22:00 05/05/24 20:44
Atorvastatin (Lipitor) 80 Mg Tablet PO 06/01/24 21:59 80 mg
HS CIPRIANO Administration
Carvedilol 3.125 mg 05/05/24 10:00 05/08/24 09:37
Carvedilol 3.125 Mg Tablet PO 06/02/24 09:59 3.125 mg
BID CIPRIANO Administration
Ceftriaxone Sodium 2,000 mg 05/06/24 10:00 05/08/24 09:33
Ceftriaxone 2,000 Mg/20 Ml Vial IV 2,000 mg
Q24H CIPRIANO Administration
Cholestyramine Resin 4 gram 05/07/24 08:00 05/08/24 09:38
Cholestyramine 4 Gram Packet PO 06/04/24 07:59 4 gram
DAILY CIPRIANO Administration
Dextrose 12.5 grams 05/04/24 16:43
Dextrose 50% (0.5 Grams/Ml) 50 Ml Syringe IV 06/01/24 16:42
[id number] PRN
hypoglycemia
Protocol
Fentanyl 1 patch 05/04/24 20:00 05/07/24 19:58
Fentanyl 25 Mcg/Hr Patch TRANSDERM 05/18/24 19:59 1 patch
Q72H CIPRIANO Administration
Folic Acid 1 tablet 05/07/24 08:00 05/08/24 09:37
Folbic (Same As Foltx) PO 06/04/24 07:59 1 tablet
DAILY CIPRIANO Administration
Glucagon 1 mg 05/04/24 16:43
Glucagon 1 Mg Vial IM 06/01/24 16:42
PRN PRN
hypoglycemia
Protocol
Hydromorphone HCl 0.25 mg 05/04/24 16:49 05/08/24 00:12
Hydromorphone 0.25 Mg/0.5 Ml Syringe IV 05/18/24 16:48 0.25 mg
Q4HPRN PRN Administration
Severe pain
Insulin Glargine 5 units/ 0.05 mls @ 0 mls/hr 05/06/24 20:30 05/07/24 20:14
Device SC 06/03/24 20:29 0.05 mls
DAILY@2030 CIPRIANO Administration
As Directed
Insulin Aspart 0 units 05/05/24 07:30 05/08/24 13:16
Insulin Aspart Moderate Resistance 300 Units/3 Ml Pen.Injctr SC 06/02/24 07:29 5 units
AC CIPRIANO Administration
Protocol
Insulin Aspart 5 units 05/07/24 07:30 05/08/24 13:17
Insulin Aspart (100 Units/Ml) 3 Ml Flexpen SC 06/04/24 07:29 5 units
AC CIPRIANO Administration
Loperamide HCl 2 mg 05/06/24 19:51 05/08/24 11:09
Loperamide 2 Mg Capsule PO 06/03/24 19:50 2 mg
Q6HPRN PRN Administration
diarrhea
Metoprolol Tartrate 5 mg 05/04/24 16:44
Metoprolol 5 Mg/5 Ml Vial IV 06/01/24 16:43
Q6HPRN PRN
HR>120
Miconazole Nitrate 0 applic 05/05/24 11:03
Miconazole Powder Bottle TOPICAL 06/02/24 11:02
BIDPRN PRN
yeasty red skin
Pantoprazole Sodium 20 mg 05/05/24 08:00 05/08/24 09:37
Pantoprazole 20 Mg Delayed Release Tablet PO 06/02/24 07:59 20 mg
DAILY CIPRIANO Administration
Patch Removal 0 patch 05/05/24 20:00 05/05/24 20:44
Remove Fentanyl Patch REMOVE 05/19/24 19:59 1 patch
Q72H CIPRIANO Administration
Sodium Chloride 0 flush 05/04/24 20:00
Sodium Chloride 0.9% (Flush) Syringe IV 06/01/24 19:59
PER PROTOCOL CIPRIANO
Sodium Chloride 0 flush 05/06/24 10:00 05/08/24 13:16
0.9% Nacl Flush If Lactated Ringers Ivf Ordered IV 06/03/24 09:59 Not Given
BID@1000,1030 CIPRIANO
Sterile Water 20 ml 05/06/24 10:00 05/08/24 09:33
Sterile Water For Injection 20 Ml Vial IV 06/03/24 09:59 20 ml
Q24H CIPRIANO Administration
Home Medications
-
Home Medications
atorvastatin 80 mg tablet 80 mg PO DAILY@2029 High Cholesterol 03/30/23
folic acid-vit B6-vit B12 2.5 mg-25 mg-2 mg tablet (Folbic) 1 tab PO DAILY Supplement 04/16/23
carvedilol 3.125 mg tablet 3.125 mg PO BID #60 tabs 04/17/23
amiodarone 200 mg tablet 200 mg PO DAILY Arrhythmia 05/04/23
acetaminophen 325 mg tablet 650 mg PO Q4HPRN PRN mild pain/fever>100.4 06/22/23
bisacodyl 10 mg rectal suppository 10 mg MT DAILYPRN PRN 3 days no bm, lactulose ineffective 06/22/23
fluticasone propionate 50 mcg/actuation nasal spray,suspension 1 spray intranasal QPM Allergies 06/22/23
insulin lispro 100 unit/mL subcutaneous pen (Humalog KwikPen (U-100) Insulin) 0 - 12 sliding scale dose SC TID@0730,1230,1730 Diabetes 06/22/23
lactulose 20 gram/30 mL oral solution 20 g PO HSPRN PRN Constipation 06/22/23
naloxone 4 mg/actuation nasal spray (Narcan) 4 mg intranasal DAILYPRN PRN opioid overdose 06/22/23
pregabalin 75 mg capsule (Lyrica) 75 mg PO TID Pain 06/22/23
azathioprine 75 mg tablet 75 mg PO DAILY ulcerative colitis 09/14/23
apixaban 2.5 mg tablet (Eliquis) 2.5 mg PO BID #60 tabs 09/23/23
fentanyl 25 mcg/hr transdermal patch 1 patch transdermal Q72H Pain #1 ea 09/23/23
tamsulosin 0.4 mg capsule 0.4 mg PO DAILY 30 days #30 caps 09/23/23
ipratropium 0.5 mg-albuterol 3 mg (2.5 mg base)/3 mL nebulization soln 3 ml inhalation R BID Lung/Breathing Issues 11/14/23
aspirin 81 mg tablet,delayed release 81 mg PO DAILY #1 tab 11/27/23
bumetanide 0.5 mg tablet 0.5 mg PO DAILY Fluid Retention/Swelling #0 tabs 11/27/23
insulin glargine 100 unit/mL subcutaneous solution (Lantus U-100 Insulin) 5 unit (0.05 mL) SC DAILY@2030 Diabetes #0 mL 11/27/23
cholestyramine (with sugar) 4 gram powder for susp in a packet (Questran) 4 g PO DAILY High Cholesterol 05/04/24
diphenoxylate-atropine 2.5 mg-0.025 mg tablet 1 tab PO DAILYPRN PRN diarrhea 05/04/24
insulin lispro 100 unit/mL subcutaneous pen (Humalog KwikPen (U-100) Insulin) 5 unit SC TID Diabetes 05/04/24
ipratropium 0.5 mg-albuterol 3 mg (2.5 mg base)/3 mL nebulization soln 3 ml inhalation R Q6HPRN PRN cough 05/04/24
loperamide 2 mg tablet 2 mg PO Q6HPRN PRN diarrhea 05/04/24
metolazone 2.5 mg tablet 2.5 mg PO DAILY Pain 05/04/24
mineral oil 1 applic topical DAILY right foot 05/04/24
pantoprazole 20 mg tablet,delayed release 20 mg PO DAILY Gastrointestinal Issue 05/04/24
therapeutic multivitamin 1 tab PO DAILY Supplement 05/04/24
--- NOTE | 2024-05-08 15:26 | CHAP ---
Mr. Garcia was sleeping soundly, with of 61 years, Shruthi, nearby. 'He was in hospital last Thanksgiving, too,' she said. She welcomed prayer. Emotional and spiritual support provided.
[2024-05-08 16:30] LABS: Glucose - Point of Care 226 mg/dl (70-99)
[2024-05-08] MEDS: KCL 40 MEQ PO (17:50)
[2024-05-08] MEDS: COREG PO (20:30)
[2024-05-08] MEDS: LIPITOR 80 MG PO (20:31)
[2024-05-08] MEDS: ELIQUIS 2.5 MG PO (20:31)
[2024-05-08] MEDS: LANTUS 0.05 UNITS SC (21:33)
[2024-05-08 21:40] LABS: Glucose - Point of Care 214 mg/dl (70-99)
[2024-05-09] VITALS (12 sets, daily range): BP systolic 101–121; BP diastolic 52–94; BMI 29.3
[2024-05-09 01:49] LABS: Complement C3 78 mg/dl (88-165)
[2024-05-09] MEDS: DILAUDID 0.25 MG IV ×2 (05:02→20:46)
[2024-05-09 05:24] LABS: % Basophils 0.2 % (0-2); % Eosinophils 2.5 % (0-6); % Immature Granulocytes 1.1 % (0-0.5); % Lymphocytes 7.4 % (20.5-51.1); % Neutrophils 79.8 % (42.2-75.2); Absolute Eosinophils 0.1 10^3/uL (0-0.7); Absolute Immature Granulocytes 0.1 10^3/uL (0-0.05); Absolute Lymphocytes 0.4 10^3/uL (1.2-3.4); Absolute Monocytes 0.5 10^3/uL (0.1-0.6); Absolute Neutrophils 4.2 10^3/uL (1.4-6.5); Hematocrit 23.6 % (39.0-52.0); Mean Corp Hgb Conc. 33.9 g/dL (33.0-37.0); Mean Corpuscular Hgb 24.6 pg (27.0-31.0); Mean Corpuscular Volume 72.6 fL (80.0-94.0); Nucleated Red Blood Cells % 0 % (-); Platelet Count 79 10^3/uL (130-400); Red Blood Cell Count 3.25 10^6/uL (4.70-6.10); Red Cell Dist. Width 18.9 % (11.5-14.5); White Blood Cell Count 5.3 10^3/uL (4.8-10.8)
[2024-05-09 05:47] LABS: ALT (SGPT) 72 U/L (0-50); AST (SGOT) 54 U/L (17-59); Albumin 2.6 g/dl (3.5-5.0); Alkaline Phosphatase 122 U/L (38-126); Blood Urea Nitrogen 79 mg/dl (9-20); Calcium 8.8 mg/dl (8.4-10.2); Carbon Dioxide 22 mmol/L (22-30); Chloride 102 mmol/L (98-107); Estimated Creatinine Clearance 29 ml/min; Glucose 170 mg/dl (70-99); Potassium 3.6 mmol/L (3.5-5.1); Sodium 134 mmol/L (135-145); Total Bilirubin 1.1 mg/dl (0.2-1.3); Total Protein 5.7 g/dl (6.3-8.2); eGFR 36.89
[2024-05-09 06:12] LABS: TSH < 0.02 uIU/ml (0.47-4.68)
--- NOTE | 2024-05-09 06:22 | PTCARENOTE ---
assumed care of patient. pt is AAOx3- forgetful at times and [place] pt flat, can try and refuse care but then agrees. pt is incontinent of stool, chronic diarrhea per report and notes. pt with x2 loose stool. cleaned up. stage 2 on sacrum, Calazime
cream applied. q2t, sometimes patient does refuse turns. educated on turning. pt 100% RA. while sleeping, oxygen did drop to 84%, 2L applied while sleeping. zaragoza intact draining karena urine. scrotal edema noted. able to take pills fine with water.
care ongoing.
[2024-05-09] MEDS: DUONEB 3 ML INH ×2 (07:43→19:48)
--- NOTE | 2024-05-09 07:46 | W.PN.NEURO.1 ---
Addendum entered and electronically signed by Aram Bryant MD 05/09/24 08:15:
Patient was not a candidate for intra-arterial thrombectomy or tenecteplase due to timeframe out of window.
Original Note:
Today's Communication / Plan
-
- follow TFTs
- Carotid Doppler US
- Resumed aspirin 81 mg QD
- Brain MRI without gloria when possible, to confirm diagnosis
Continue apixaban due to history of atrial fibrillation
Medical educational materials to be provided
Goal of normotension
Goal of normoglycemia
Neuro Assessment/Plan
Assessment
Mr. Garcia endorses ongoing proximal arm weakness as new bilateral action hand tremor.
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 Probable etiology�watershed infarcts.
II. 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
III. Pancytopenia
Plan
- Continue Telemetry monitoring.
- follow TFTs
- Carotid Doppler US
- Resumed aspirin 81 mg QD
- Brain MRI without gloria when possible, to confirm diagnosis
Continue apixaban due to history of atrial fibrillation
Medical educational materials to be provided
Goal of normotension
Goal of normoglycemia
Will follow as needed.
Subjective/Objective
Subjective Data
Date of Service: May 09, 2024
Objective Data
Vital Signs
Temp Pulse Resp BP Pulse Ox
36.6 C 60 15 107/56 96
05/09/24 03:10 05/09/24 06:06 05/09/24 06:06 05/09/24 06:06 05/09/24 06:06
Lab Results
05/09/24 04:48
05/09/24 04:48
Sodium 134 mmol/L (135-145) L 05/09/24 04:48
Potassium 3.6 mmol/L (3.5-5.1) 05/09/24 04:48
BUN 79 mg/dl (9-20) H 05/09/24 04:48
Glucose 170 mg/dl (70-99) H 05/09/24 04:48
Calcium 8.8 mg/dl (8.4-10.2) 05/09/24 04:48
Patient Allergies
Sulfa (Sulfonamide Antibiotics) Allergy (Verified 05/04/24 14:45)
Hives
sulfasalazine Allergy (Verified 05/04/24 14:45)
mother states hives
Medications
-
Medications:
Generic Name Dose Route Start Last Admin
Trade Name Freq PRN Reason Stop Dose Admin
Acetaminophen 650 mg 05/04/24 19:51 05/08/24 11:09
Acetaminophen 325 Mg Tablet PO 06/01/24 19:50 650 mg
Q4HPRN PRN Administration
mild pain/fever>100.4
Albuterol/Ipratropium 3 ml 05/04/24 19:51 05/08/24 09:58
Ipratropium 0.5/Albuterol 3 Mg (3 Ml Ampul) INH 3 ml
R Q6HPRN PRN Administration
cough
Protocol
Albuterol/Ipratropium 3 ml 05/06/24 20:00 05/09/24 07:43
Ipratropium 0.5/Albuterol 3 Mg (3 Ml Ampul) INH 3 ml
R BID CIPRIANO Administration
Protocol
Amiodarone HCl 200 mg 05/05/24 08:00 05/08/24 09:38
Amiodarone 200 Mg Tablet PO 06/02/24 07:59 200 mg
DAILY CIPRIANO Administration
Apixaban 2.5 mg 05/04/24 20:00 05/08/24 20:31
Apixaban (Eliquis) 2.5 Mg Tablet PO 06/01/24 19:59 2.5 mg
BID CIPRIANO Administration
Aspirin 81 mg 05/05/24 08:00 05/08/24 09:38
Aspirin 81 Mg (Enteric Coated) Tablet PO 06/02/24 07:59 81 mg
DAILY CIPRIANO Administration
Atorvastatin Calcium 80 mg 05/04/24 22:00 05/08/24 20:31
Atorvastatin (Lipitor) 80 Mg Tablet PO 06/01/24 21:59 80 mg
HS CIPRIANO Administration
Carvedilol 3.125 mg 05/05/24 10:00 05/08/24 20:30
Carvedilol 3.125 Mg Tablet PO 06/02/24 09:59 Not Given
BID CIPRIANO
Ceftriaxone Sodium 2,000 mg 05/06/24 10:00 05/08/24 09:33
Ceftriaxone 2,000 Mg/20 Ml Vial IV 2,000 mg
Q24H CIPRIANO Administration
Cholestyramine Resin 4 gram 05/07/24 08:00 05/08/24 09:38
Cholestyramine 4 Gram Packet PO 06/04/24 07:59 4 gram
DAILY CIPRIANO Administration
Dextrose 12.5 grams 05/04/24 16:43
Dextrose 50% (0.5 Grams/Ml) 50 Ml Syringe IV 06/01/24 16:42
Q30AKCU PRN
hypoglycemia
Protocol
Fentanyl 1 patch 05/04/24 20:00 05/07/24 19:58
Fentanyl 25 Mcg/Hr Patch TRANSDERM 05/18/24 19:59 1 patch
Q72H CIPRIANO Administration
Folic Acid 1 tablet 05/07/24 08:00 05/08/24 09:37
Folbic (Same As Foltx) PO 06/04/24 07:59 1 tablet
DAILY CIPRIANO Administration
Glucagon 1 mg 05/04/24 16:43
Glucagon 1 Mg Vial IM 06/01/24 16:42
PRN PRN
hypoglycemia
Protocol
Hydromorphone HCl 0.25 mg 05/04/24 16:49 05/09/24 05:02
Hydromorphone 0.25 Mg/0.5 Ml Syringe IV 05/18/24 16:48 0.25 mg
Q4HPRN PRN Administration
Severe pain
Insulin Glargine 5 units/ 0.05 mls @ 0 mls/hr 05/06/24 20:30 05/08/24 21:33
Device SC 06/03/24 20:29 0.05 mls
DAILY@2030 CIPRIANO Administration
As Directed
Insulin Aspart 0 units 05/05/24 07:30 05/08/24 17:50
Insulin Aspart Moderate Resistance 300 Units/3 Ml Pen.Injctr SC 06/02/24 07:29 3 units
AC CIPRIANO Administration
Protocol
Insulin Aspart 5 units 05/07/24 07:30 05/08/24 17:51
Insulin Aspart (100 Units/Ml) 3 Ml Flexpen SC 06/04/24 07:29 5 units
AC CIPRIANO Administration
Loperamide HCl 2 mg 05/06/24 19:51 05/08/24 18:49
Loperamide 2 Mg Capsule PO 06/03/24 19:50 2 mg
Q6HPRN PRN Administration
diarrhea
Metoprolol Tartrate 5 mg 05/04/24 16:44
Metoprolol 5 Mg/5 Ml Vial IV 06/01/24 16:43
Q6HPRN PRN
HR>120
Miconazole Nitrate 0 applic 05/05/24 11:03
Miconazole Powder Bottle TOPICAL 06/02/24 11:02
BIDPRN PRN
yeasty red skin
Pantoprazole Sodium 20 mg 05/05/24 08:00 05/08/24 09:37
Pantoprazole 20 Mg Delayed Release Tablet PO 06/02/24 07:59 20 mg
DAILY CIPRIANO Administration
Patch Removal 0 patch 05/10/24 20:00
Remove Fentanyl Patch REMOVE 05/24/24 19:59
Q72H CIPRIANO
Sodium Chloride 0 flush 05/04/24 20:00
Sodium Chloride 0.9% (Flush) Syringe IV 06/01/24 19:59
PER PROTOCOL CIPRIANO
Sodium Chloride 0 flush 05/06/24 10:00 05/08/24 13:16
0.9% Nacl Flush If Lactated Ringers Ivf Ordered IV 06/03/24 09:59 Not Given
BID@1000,1030 CIPRIANO
Sterile Water 20 ml 05/06/24 10:00 05/08/24 09:33
Sterile Water For Injection 20 Ml Vial IV 06/03/24 09:59 20 ml
Q24H CIPRIANO Administration
Past History
Past History
ED Past Medical History: Arrthythmia (Atrial fib), CAD, CHF, GERD, HTN, Hypercholesterolemia, NIDDM, [place], Psychiatric (Anxiety, ) and Other (Arthritis, ulcerative colitis, chronic renal insufficiency, GI bleed, Back pain, Dizziness, Subdural
hematoma, IBS, Anemia. Thrombocytopenia, )
ED Past Surgical History: Cardiac (Pacemaker, Bypass, Stents), Orthopedic (Bilateral ankle surgery. Left AKA, Left hip replacement, ), Tonsilectomy and Other (catracts, )
Patient has exhibited threatening behavior?: No
Social History
Tobacco: Non-smoker
Alcohol: None
Drug: None
Personal:
Living: penitentiary ([facility])
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
Family History
Family History: Other (Reviewed and noncontributory)
--- NOTE | 2024-05-09 07:51 | W.PN.HOSP.TC ---
Today's Communication/Plan
-
see A/P
Assessment / Plan
Assessment / Plan
Physical exam:
General: Acutely ill.
HEENT: Normocephalic, Atraumatic and Moist Mucous Membranes
Respiratory: Clear to Auscultation; Negative Wheezes, Rales or Rhonchi
Cardiac: Regular Rhythm and S1/S2
GI: Soft, Nontender and Nondistended
Musculoskeletal: Left AKA. No Clubbing, No Cyanosis and No Edema. Remains with significant amount of weakness in upper extremities.
Neuro: Awake, Alert and Oriented, weakness present b/l UE > b/l LE
Psych: Calm
Echocardiogram:
1. Left ventricle: Normal size and mildly reduced systolic function with an
estimated ejection fraction of 40-45% by Pond's method of discs. The left
ventricle is globally hypokinetic. Stage II diastolic dysfunction is noted.
2. Right ventricle: Normal. A pacemaker wire is noted in the right ventricle
3. Atria: Severe biatrial dilation
4. Mitral valve: Mild mitral regurgitation
5. Aortic valve: Trace aortic insufficiency
6. Tricuspid valve: Moderate tricuspid regurgitation
7. Change this have occurred when compared to the most recent echocardiogram
from 05/05/2023. The estimated ejection fraction on the prior study was 55%
and is 40-45% on the present study. The ventricle is globally hypokinetic.
A/P:
# Sepsis with Strep Bacteremia:
Continue IV ceftriaxone 2 g daily
Cervical MRI no�spinal epidural abscess.
Transthoracic echo no vegetations.
Exchanged Cespedes catheter
No evidence of cholecystitis clinically.
ID on board
# Upper extremity weakness related to either cervical stenosis vs ?stroke and or ?septic emboli:
Appreciated neurology and neurosurgery consults
MRI cervical spine noted significant spinal stenosis.
Pending MRI brain
Check Carotid Doppler US
Continue aspirin
# LENI on CKD 3
# suspect prerenal LENI with low BPs vs infection
Creatinine 1.8 today, from 1.3 on admission
Avoid nephrotoxic
Continue to monitor renal function, appear to have plateaued
Nephrology on board
# Hypokalemia
Replaced
# Anemia:
Hemoglobin 7.9
Continue to monitor hemoglobin closely
# Elevated LFTs, improving
Continue to trend LFT
Resumed statin Lipitor 80 mg
# Hematuria, Resolved. Likely due to traumatic Cespedes catheter exchange and also underlying use of Eliquis
Resumed Eliquis 2.5 BID and aspirin
Monitor hemoglobin
# Hypotension, Improved
Off IV fluids
# Paroxysmal atrial fibrillation:
On rate control carvedilol 3.125 mg twice a day with holding parameters
IV Lopressor as needed
Continue antiarrhythmic amiodarone 200 mg daily
Continue anticoagulation, Eliquis 2.5 mg twice a day
# Diabetes mellitus type 2:
Resume home long-acting Lantus 5 units HS and short acting insulin 5 units AC
Continue insulin sliding scale
# Hyperlipidemia:
Resume statins
# Chronic HFpEF:
Holding diuretics, resume if renal function stable
Monitor volume status
# CAD/PVD/CVA:
Continue anti-ischemic regimen
# Chronic pain syndrome/spinal stenosis/chronic narcotics dependence:
Continue fentanyl patch
IV Dilaudid as needed
# History of ulcerative colitis/GERD/GI bleed:
Monitor GI symptoms
# Chronic thrombocytopenia:
Monitor platelet count and signs of bleeding
Platelet count improved to 79 today
# Abnormal TSH
TSH < 0.02, follow FT4
DVT prophylaxis: Eliquis 2.5 mg twice a day
CODE STATUS: Full code
DW on the phone
total time spent 51 min
Anticipated Discharge: > 48 hours
Subjective/Interval History
-
Date of Service: May 09, 2024
Objective Data
-
Labs:
Laboratory Results
05/09/24
04:48
WBC 5.3
Hgb 8.0 L
Hct 23.6 L
Plt Count 79 L D
Sodium 134 L
Potassium 3.6
Chloride 102
Carbon Dioxide 22
BUN 79 H
Creatinine 1.8 H
Glucose 170 H
Calcium 8.8
Total Bilirubin 1.1
AST 54
ALT 72 H
Alkaline Phosphatase 122
Vital Signs:
Vital Signs
Temp Pulse Resp BP Pulse Ox
36.6 C 60 16 107/56 94
05/09/24 03:10 05/09/24 07:44 05/09/24 07:44 05/09/24 06:06 05/09/24 07:44
I&O
05/08/24 05/09/24 05/10/24
06:59 06:59 06:59
Intake Total 480 / 480 240 / 240
Output Total 525 / 525 900 / 900
Balance -45 / -45 -660 / -660
Review of Systems
-
Neuro: Reports Weakness (BL upper extremities )
Data Reviewed
-
MRI: Report Reviewed by me
Labs: Labs Reviewed by me
[2024-05-09] MEDS: QUESTRAN 4 GRAM PO (08:41)
[2024-05-09 08:44] LABS: Erythrocyte Sed Rate 33 mm/hour (0-20)
[2024-05-09 08:54] LABS: Glucose - Point of Care 187 mg/dl (70-99)
[2024-05-09 09:03] LABS: Free T4 3.35 ng/dl (0.78-2.19)
[2024-05-09 09:09] LABS: Ferritin 50.1 ng/ml (17.9-464.0)
[2024-05-09 09:23] LABS: Vitamin B12 > 1000 pg/ml (239-931)
[2024-05-09] MEDS: ROCEPHIN 2000 MG IV (09:38)
[2024-05-09] MEDS: PROTONIX 20 MG PO (09:38)
[2024-05-09] MEDS: STERILE WATER FOR INJECTION 20 ML IV (09:38)
[2024-05-09] MEDS: FOLTX 1 TABLET PO (09:39)
[2024-05-09] MEDS: ASPIR LOW (ENTERIC COATED) 81 MG PO (09:39)
[2024-05-09] MEDS: COREG 3.125 MG PO ×2 (09:39→20:19)
[2024-05-09] MEDS: ELIQUIS 2.5 MG PO ×2 (09:39→20:19)
[2024-05-09] MEDS: KCL 40 MEQ PO (09:39)
[2024-05-09] MEDS: NOVOLOG FLEXPEN 5 UNITS SC ×3 (09:40→17:12)
[2024-05-09] MEDS: NOVOLOG FLEXPEN-MODERATE RESISTANCE 1 UNITS SC (09:40)
[2024-05-09] MEDS: PACERONE 200 MG PO (09:40)
[2024-05-09] MEDS: FLUSH (NSS) IV ×2 (09:41→09:45)
--- NOTE | 2024-05-09 09:44 | W.PN.NEPH.PH ---
Today's Communication / Plan
-
observe
Suspect acute kidney injury is due to underlying bacteremia
No acute dialysis required
Follow BMP
Maintain fall
Assessment/Plan
-
Assessment:
Sepsis with Strept Bacteremia
Upper extremity weakness
Hematuria:? Traumatic Zaragoza catheter exchange and also underlying use of Eliquis
Hypotension
LENI on CKD-baseline cr 1-1.3
hypokalemia
Abnormal thyroid test
Anemia
Acute on Chronic thrombocytopenia
Paroxysmal atrial fibrillation
Diabetes mellitus type 2
Hyperlipidemia
Chronic HFpEF
CAD/PVD/CVA
Chronic pain syndrome/spinal stenosis/chronic narcotics dependence
History of ulcerative colitis/GERD/GI bleed
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
CAD/NE/CABG 2009
Chronic LBBB
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
Chronic right lower extremity lymphedema
Hx CVA per CT head
Hx subdural hematoma after mechanical fall
Hx orthostatic hypotension/HTN
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
Chronic pain syndrome secondary to spinal stenosis on chronic opiate patch
GERD/Hx GI bleed
Hx ulcerative colitis- azathioprine
Anxiety
Chronic ambulatory dysfunction with chronic foot and ankle deformities
Hypoalbuminemia
Plan:
A/w UE weakness, sepsis and group C bacteremia
creatinine up to 1.8, uop ~900cc via zaragoza, weights up
hemodynamically stable
LENI-cr steady increase in last few days , cr seem plataeu now
suspect prerenal specially with low BPs vs infection , U na low
microhematuria with zaragoza, neg U eosinopils,, complements to r/o ICGN
C3 low
ASO positive
monitor UOP, non oliguric with zaragoza
CT on admit with out hydronephrosis
wt stable with known CHF , echo noted EF 40-45%
resp status seem stable holding bumex, low threshold to resume
bp are soft, coreg with holding parameters, prn IVF
thrombocytopenia-chronic was seen by heme before
dose meds renally, abx per ID
TSH low and high FT4 on Amiodarone-defer to primary
avoid nephrotoxins
replace K prn
follow labs
-
-
Date of Service: May 09, 2024
CC / HPI / ROS
-
Chief Complaint:
LENI
History of Present Illness:
Creatinine up to 1.8
Hemodynamically stay
Review of Systems:
no sob
no n/v
still UE weakness can not feed himself
Zaragoza :nonoliguric
weight up
no fevers
Labs
-
Labs:
WBC 5.3 10^3/uL (4.8-10.8) 05/09/24 04:48
RBC 3.25 10^6/uL (4.70-6.10) L 05/09/24 04:48
Hgb 8.0 g/dL (13.0-18.0) L 05/09/24 04:48
Hct 23.6 % (39.0-52.0) L 05/09/24 04:48
Plt Count 79 10^3/uL (130-400) L D 05/09/24 04:48
Sodium 134 mmol/L (135-145) L 05/09/24 04:48
Potassium 3.6 mmol/L (3.5-5.1) 05/09/24 04:48
Chloride 102 mmol/L (98-107) 05/09/24 04:48
Carbon Dioxide 22 mmol/L (22-30) 05/09/24 04:48
BUN 79 mg/dl (9-20) H 05/09/24 04:48
Creatinine 1.8 mg/dL (0.7-1.3) H 05/09/24 04:48
eGFR 36.89 05/09/24 04:48
Glucose 170 mg/dl (70-99) H 05/09/24 04:48
Calcium 8.8 mg/dl (8.4-10.2) 05/09/24 04:48
Albumin 2.6 g/dl (3.5-5.0) L 05/09/24 04:48
Physical Exam
-
Vital Signs:
Vital Signs
Temp Pulse Resp BP Pulse Ox
97.9 F 66 15 116/52 98
05/09/24 03:10 05/09/24 09:40 05/09/24 08:00 05/09/24 09:40 05/09/24 08:00
Cardiovascular:: Regular rate and rhythm
Respiratory:: Bilateral: CTA
Lung Excursion:: Normal
Abdomen:: Nontender and Soft
Bowel Sounds:: Normal
Extremity Edema:: +2: Bilateral:
Zaragoza Catheter: Yes
[2024-05-09 10:39] LABS: Folate > 20.0 ng/ml (2.76-20)
[2024-05-09] MEDS: IMODIUM 2 MG PO (10:42)
[2024-05-09 13:05] LABS: Glucose - Point of Care 310 mg/dl (70-99)
[2024-05-09] MEDS: NOVOLOG FLEXPEN-MODERATE RESISTANCE 7 UNITS SC (13:24)
--- NOTE | 2024-05-09 13:37 | W.PN.ID1 ---
Date of Service
Date of Service: May 09, 2024
Today's Communication
Continue antibiotics.
Assessment / Plan
Bilateral Upper Extremity Weakness
- no osteo or epidural abscess seen on MRI imaging
- ? B/L 'frozen shoulder'
Group C Strep bacteremia
-Repeat blood cultures no growth x 48 hours
LENI
C. diff diarrhea
Hx Pacemaker
Chronic Thrombocytopenia
Dm2
- repeat blood cultures pending but show no growth x 24 hours
- 10/20 blood cultures 10 min apart both with group C strep
- TTE unrevealing.
- Continue with ceftriaxone for today.
- Begin enteral vanco. Enhanced contact precautions.
- Follow white count & temperature curve.
����������������������������������������������������������
Chief Complaint
-: Bacteremia
Subjective / Review of Systems
Patient seen and examined. Nursing reports liquid stool this a.m. Patient denies any abdominal pain.
Review of Systems: No Fever and No Chills
Vital Signs / Physical Exam
Vital Signs
Vital Signs
Temp Pulse Resp BP Pulse Ox
97.7 F 60 12 110/53 96
05/09/24 07:23 05/09/24 12:00 05/09/24 12:00 05/09/24 12:00 05/09/24 12:00
Physical Exam
Constitutional: Comfortable, Chronically Ill and Non-toxic
Eyes: No Conjunctival Hemorrhage and Sclera Anicteric
Cardiovascular: Regular Rate and S1/S2
Pulmonary: Clear and Non Labored; Negative Wheezes, Rales or Rhonchi
Gastrointestinal: Soft, Non Tender, Non Distended, Normal Bowel Sounds, No Rebound and No Guarding
Extremities: Edema (2+ upper extremity edema; 3+ right lower extremity edema)
Musculoskeletal: Other (Hx left AKA. )
Skin: Warm and Dry; Negative Rash or Jaundice
Neurological: Awake and Alert
Psychological: Calm
Objective Data
Lab Data
Lab Results
05/09/24 04:48
05/09/24 04:48
ESR 33 mm/hour (0-20) H 05/09/24 04:48
Estimated Creat Clear 29 ml/min 05/09/24 04:48
Lactic Acid Cancelled 05/05/24 06:23
Total Bilirubin 1.1 mg/dl (0.2-1.3) 05/09/24 04:48
AST 54 U/L (17-59) 05/09/24 04:48
ALT 72 U/L (0-50) H 05/09/24 04:48
Alkaline Phosphatase 122 U/L (38-126) 05/09/24 04:48
Most recent labs reviewed.
Micro Results:
05/09/24 12:17 C. difficile GDH Antigen & Toxins - Final
Feces/Stool Toxigenic C.difficile Positive
- Pending
05/09/24 12:17 Salmonella/Shigella Culture - Pending
Feces/Stool Campylobacter Culture - Pending
Shiga Toxin Test - Pending
05/06/24 15:42 Blood Culture - Preliminary
Blood/Venous No Growth in 48 hours- Final report to follow
05/06/24 15:41 Blood Culture - Preliminary
Blood/Venous No Growth in 48 hours- Final report to follow
05/04/24 15:12 Blood Culture - Final
Blood/Venous Group C Streptococcus
Gram Stain - Final
05/04/24 15:21 Blood Culture - Final
Blood/Venous Group C Streptococcus
Gram Stain - Final
05/04/24 15:12 Urine Culture - Final
Urine
05/04/24 20:10 MRSA Screen - Final
Nose No Methicillin Resistant Staphylococcus aureus isolated.
Imaging:
05/06/2024 MRI cervical spine: There is reversal of cervical lordosis. Multilevel degenerative disc disease is noted. No evidence of discitis or osteomyelitis. No epidural abscess noted.
05/06/2024 CT head without contrast: No acute intracranial abnormality noted. A small right mastoid effusion is seen.
05/04/2024 CT abdomen/pelvis without contrast: Cholelithiasis with gallbladder wall thickening and some very cholecystic fluid is noted, raising the possibility for acute cholecystitis. Splenomegaly is seen. There is mild urinary bladder wall
thickening with a Cespedes catheter in place. Please see full dictation for additional detail.
Cardiac Imaging:
05/06/2024 ECHO (TTE): Normal left ventricular size, with mildly reduced systolic function, EF approximately 40%. Stage II diastolic dysfunction is noted. Right ventricle is normal. Pacemaker wires noted in the right ventricle. There is severe
biatrial dilatation. There is mild mitral valve regurgitation. No intracardiac mass or thrombus formation is seen.
[2024-05-09] MEDS: NOVOLOG FLEXPEN-MODERATE RESISTANCE 5 UNITS SC (17:12)
[2024-05-09 17:17] LABS: Glucose - Point of Care 252 mg/dl (70-99)
--- NOTE | 2024-05-09 17:45 | CM ---
Patient from [facility] with Hx including CVA and left AKA. MRI Brain & Vascular U/S today. Receiving IV Abx, PO Vanco. Enhanced contact precautions. Per nursing; AAOx3- forgetful at times and GALENA. PT & OT notes; Therapy not warranted.
[facility]: The phone for report to [address] is [phone], fax [phone].
Plan return to [facility] when medically ready.
[2024-05-09] MEDS: FIRVANQ 125 MG PO ×2 (17:54→23:40)
--- NOTE | 2024-05-09 17:56 | PTCARENOTE ---
Patient AOx3. Patient forgetful at times. 100% a pace with BBB and first degree on monitor. Patient on RA with SpO2 greater than 92%. HOLLOWAY. Patient on enhanced precautions due to positive c diff result today. Patient incontinent to stool. Chronic
zaragoza draining karena with sediment urine. Scrotal edema present. L AKA. Assist x2 for q2 turns. Call cobos within reach, bed in lowest position, and wheels locked.
[2024-05-09] MEDS: LIPITOR 80 MG PO (20:19)
[2024-05-09] MEDS: MYCOSTATIN ORAL SUSPENSION 5 ML PO (20:46)
[2024-05-09] MEDS: LANTUS 0.05 UNITS SC (21:40)
[2024-05-09 21:50] LABS: Glucose - Point of Care 223 mg/dl (70-99)
[2024-05-10] VITALS (13 sets, daily range): BP systolic 99–146; BP diastolic 49–72; BMI 29.3
--- NOTE | 2024-05-10 00:12 | PTCARENOTE ---
assumed care of patient. pt is AAOx3, PAMUNKEY able to make needs known. 96% RA. audible wheezes, SOB on exertion. incontinent of diarrhea, positive for c-diff. zaragoza intact, draining yellow urine. q2t. left fentanyl patch on left axilla, verified with
another RN. pt with pain to bilateral arms and back of neck. medicated with PRN dilaudid per AUG. pt did report relief after medication administration. able to take pills with water with no issues. stage 2 on sacrum, Calazime cream applied. care
ongoing.
--- NOTE | 2024-05-10 01:42 | PTCARENOTE ---
oxygen dropping to 77% RA while sleeping, 2L NC applied, now 99%.
[2024-05-10] MEDS: FIRVANQ 125 MG PO ×4 (05:23→23:04)
[2024-05-10 05:46] LABS: Hematocrit 24.7 % (39.0-52.0); Hemoglobin 8.3 g/dL (13.0-18.0); Mean Corp Hgb Conc. 33.6 g/dL (33.0-37.0); Mean Corpuscular Hgb 24.4 pg (27.0-31.0); Mean Corpuscular Volume 72.6 fL (80.0-94.0); Platelet Count 118 10^3/uL (130-400); Red Cell Dist. Width 19.4 % (11.5-14.5); White Blood Cell Count 6.1 10^3/uL (4.8-10.8)
[2024-05-10] MEDS: DUONEB 3 ML INH ×2 (07:24→20:09)
[2024-05-10 07:31] LABS: Blood Urea Nitrogen 79 mg/dl (9-20); Carbon Dioxide 22 mmol/L (22-30); Chloride 102 mmol/L (98-107); Estimated Creatinine Clearance 33 ml/min; Glucose 186 mg/dl (70-99); Magnesium 1.8 mg/dl (1.6-2.3); Sodium 134 mmol/L (135-145); eGFR 42.49
[2024-05-10 07:58] LABS: Glucose - Point of Care 205 mg/dl (70-99)
[2024-05-10] MEDS: QUESTRAN 4 GRAM PO (08:16)
--- NOTE | 2024-05-10 08:33 | W.PN.HOSP.TC ---
Addendum entered and electronically signed by Trinity Woodruff MD 05/10/24 09:21:
wean O2 back to RA
Check nocturnal pulse Ox
OK to downgrade to tele
Original Note:
Today's Communication/Plan
-
see A/P
Assessment / Plan
Assessment / Plan
Echocardiogram:
1. Left ventricle: Normal size and mildly reduced systolic function with an
estimated ejection fraction of 40-45% by Pond's method of discs. The left
ventricle is globally hypokinetic. Stage II diastolic dysfunction is noted.
2. Right ventricle: Normal. A pacemaker wire is noted in the right ventricle
3. Atria: Severe biatrial dilation
4. Mitral valve: Mild mitral regurgitation
5. Aortic valve: Trace aortic insufficiency
6. Tricuspid valve: Moderate tricuspid regurgitation
7. Change this have occurred when compared to the most recent echocardiogram
from 05/05/2023. The estimated ejection fraction on the prior study was 55%
and is 40-45% on the present study. The ventricle is globally hypokinetic.
A/P:
# Sepsis with Strep Bacteremia:
Continue IV ceftriaxone 2 g daily
Cervical MRI no�spinal epidural abscess. Transthoracic echo no vegetations.
Exchanged Cespedes catheter this admission
No evidence of cholecystitis clinically.
ID on board
# C. diff colitis
started PO vancomycin
ID on board
# Upper extremity weakness likely related to cervical stenosis
Appreciated neurology and neurosurgery consults
MRI cervical spine noted significant spinal stenosis.
MRI brain unrevealing.
Carotid Doppler US noted BL calcified vessels, but less than 50% bilateral internal carotid artery stenosis.
Continue aspirin
PT OT eval: per note, pt is non-ambulatory at baseline, so no skilled PT warranted
# LENI on CKD 3
# suspect prerenal LENI with low BPs vs infection
Creatinine 1.6 today, peaked at 1.8; from 1.3 on admission
Avoid nephrotoxic
Nephrology on board
# Hypokalemia, resolved
# Anemia:
Hemoglobin 7.9
Continue to monitor hemoglobin closely
# Elevated LFTs, improving
Continue to trend LFT
Resumed statin Lipitor 80 mg
# Hematuria, Resolved. Likely due to traumatic Cespedes catheter exchange and also underlying use of Eliquis
Resumed Eliquis 2.5 BID and aspirin
Monitor hemoglobin
# Hypotension, Improved
Off IV fluids
# Paroxysmal atrial fibrillation:
On rate control carvedilol 3.125 mg twice a day with holding parameters
IV Lopressor as needed
Continue antiarrhythmic amiodarone 200 mg daily
Continue anticoagulation, Eliquis 2.5 mg twice a day
# Diabetes mellitus type 2:
Resume home long-acting Lantus 5 units HS and short acting insulin 5 units AC
Continue insulin sliding scale
# Hyperlipidemia:
Resume statins
# Chronic HFpEF:
Holding diuretics, resume if renal function back to baseline
Monitor volume status
# CAD/PVD/CVA:
Continue anti-ischemic regimen
# Chronic pain syndrome/spinal stenosis/chronic narcotics dependence:
Continue fentanyl patch
IV Dilaudid as needed
# History of ulcerative colitis/GERD/GI bleed:
Monitor GI symptoms
# Chronic thrombocytopenia:
Monitor platelet count and signs of bleeding
Platelet count improved to 118 today
# Abnormal TSH, suspect subclinical hyperthyroidism
TSH < 0.02, FT4 at 7.70
recc outpt TFT in 4-6 weeks, informed
DVT prophylaxis: Eliquis 2.5 mg twice a day
CODE STATUS: Full code
DW on the phone
total time spent 51 min
Anticipated Discharge: 24 - 48 hours
Subjective/Interval History
-
Date of Service: May 10, 2024
Objective Data
-
Labs:
Laboratory Results
05/10/24 05/10/24
05:29 06:40
WBC 6.1
Hgb 8.3 L
Hct 24.7 L
Plt Count 118 L D
Sodium Cancelled 134 L
Potassium Cancelled 4.0
Chloride Cancelled 102
Carbon Dioxide Cancelled 22
BUN Cancelled 79 H
Creatinine Cancelled 1.6 H
Glucose Cancelled 186 H
Calcium Cancelled 9.0
Vital Signs:
Vital Signs
Temp Pulse Resp BP Pulse Ox
37.1 C 60 15 110/72 97
05/10/24 03:49 05/10/24 08:00 05/10/24 08:00 05/10/24 08:00 05/10/24 08:00
I&O
05/09/24 05/10/24 05/11/24
06:59 06:59 06:59
Intake Total 240 / 240 600 / 600
Output Total 900 / 900 900 / 900
Balance -660 / -660 -300 / -300
Review of Systems
-
Neuro: Reports Weakness (BL upper extremities )
Physical Exam
-
General: Well Developed, Comfortable, Conversant and Appears Chronically Ill
Respiratory: Clear to Auscultation and Non Labored Respirations; Negative Accessory Resp Muscle Use
Cardiac: Regular Rhythm and S1/S2
GI: Soft and Nontender
Genito-urinary: Cespedes; Negative Continuous Bladder Irrigation
Musculoskeletal: Other (Left AKA)
Neuro: Awake and Alert
Psych: Calm and Intact Judgement/Insight (somewhat)
Data Reviewed
-
MRI: Report Reviewed by me
Labs: Labs Reviewed by me
[2024-05-10] MEDS: FLUSH (NSS) IV ×2 (09:34→11:22)
[2024-05-10] MEDS: STERILE WATER FOR INJECTION 20 ML IV (09:36)
[2024-05-10] MEDS: ASPIR LOW (ENTERIC COATED) 81 MG PO (09:36)
[2024-05-10] MEDS: ROCEPHIN 2000 MG IV (09:36)
[2024-05-10] MEDS: MYCOSTATIN ORAL SUSPENSION 5 ML PO ×4 (09:36→21:32)
[2024-05-10] MEDS: ELIQUIS 2.5 MG PO ×2 (09:36→19:47)
[2024-05-10] MEDS: PROTONIX 20 MG PO (09:37)
[2024-05-10] MEDS: FOLTX 1 TABLET PO (09:37)
[2024-05-10] MEDS: PACERONE 200 MG PO (09:37)
[2024-05-10] MEDS: COREG 3.125 MG PO ×2 (09:37→19:46)
[2024-05-10] MEDS: NOVOLOG FLEXPEN-MODERATE RESISTANCE 3 UNITS SC ×2 (09:38→17:32)
[2024-05-10] MEDS: NOVOLOG FLEXPEN 5 UNITS SC (09:38)
--- NOTE | 2024-05-10 10:29 | W.PN.ID1 ---
Date of Service
Date of Service: May 10, 2024
Today's Communication
- TTE unrevealing, given pacemaker, typical organism for endocarditis without other clear etiology, suspicion of possible embolic strokes (watershed infarcts) - would consider ZACHARY when feasible
ordered MRI brain with contrast
Assessment / Plan
Bilateral Upper Extremity Weakness
- no osteo or epidural abscess seen on MRI imaging
- concern for possible watershed infarctions
Group C Strep bacteremia
-Repeat blood cultures no growth
LENI
C. diff diarrhea
Hx Pacemaker
Chronic Thrombocytopenia
Dm2
- repeat blood cultures pending but show no growth to date
- 10/20 blood cultures 10 min apart both with group C strep
- TTE unrevealing, given pacemaker, typical organism for endocarditis without other clear etiology, suspicion of possible embolic strokes (watershed infarcts) - would consider ZACHARY when feasible
- MRI without contrast without acute abnormalities; Crcl >30, discussed with nephrology and ordered mri brain with contrast which would be more sensitive
- Continue with ceftriaxone - likely 6 week course
- c/w enteral vanco - would likely extend the course to while on . Enhanced contact precautions.
- will place PICC when approaching dc
- Follow white count & temperature curve.
����������������������������������������������������������
Chief Complaint
-: Bacteremia
Subjective / Review of Systems
afebrile
bp stable
no events overnight
Vital Signs / Physical Exam
Vital Signs
Vital Signs
Temp Pulse Resp BP Pulse Ox
98.7 F 60 15 116/61 97
05/10/24 07:51 05/10/24 09:37 05/10/24 08:00 05/10/24 09:37 05/10/24 08:00
Physical Exam
Constitutional: No Acute Distress
Cardiovascular: Regular Rate and S1/S2; Negative Murmur or Rub
Pulmonary: Clear and Symmetric; Negative Wheezes or Rales
Gastrointestinal: Soft, Non Tender, Non Distended and Normal Bowel Sounds
Skin: Warm and Dry; Negative Rash or Jaundice
Objective Data
Lab Data
Lab Results
05/10/24 05:29
05/10/24 06:40
ESR 33 mm/hour (0-20) H 05/09/24 04:48
Estimated Creat Clear 33 ml/min 05/10/24 06:40
Lactic Acid Cancelled 05/05/24 06:23
Total Bilirubin 1.1 mg/dl (0.2-1.3) 05/09/24 04:48
AST 54 U/L (17-59) 05/09/24 04:48
ALT 72 U/L (0-50) H 05/09/24 04:48
Alkaline Phosphatase 122 U/L (38-126) 05/09/24 04:48
Most recent labs reviewed.
note resolved leukopenia and thrombocytopenia
Micro Results:
05/09/24 12:17 Salmonella/Shigella Culture - Preliminary
Feces/Stool Culture in Progress
Campylobacter Culture - Preliminary
Culture in Progress
Shiga Toxin Test - Pending
05/06/24 15:42 Blood Culture - Preliminary
Blood/Venous No Growth in 72 hours- Final report to follow
05/06/24 15:41 Blood Culture - Preliminary
Blood/Venous No Growth in 72 hours- Final report to follow
05/09/24 12:17 C. difficile GDH Antigen & Toxins - Final
Feces/Stool Toxigenic C.difficile Positive
- Final
Negative for Norovirus GI and GII.
05/04/24 15:12 Blood Culture - Final
Blood/Venous Group C Streptococcus
Gram Stain - Final
05/04/24 15:21 Blood Culture - Final
Blood/Venous Group C Streptococcus
Gram Stain - Final
05/04/24 15:12 Urine Culture - Final
Urine
05/04/24 20:10 MRSA Screen - Final
Nose No Methicillin Resistant Staphylococcus aureus isolated.
Imaging:
05/06/2024 MRI cervical spine: There is reversal of cervical lordosis. Multilevel degenerative disc disease is noted. No evidence of discitis or osteomyelitis. No epidural abscess noted.
05/06/2024 CT head without contrast: No acute intracranial abnormality noted. A small right mastoid effusion is seen.
05/04/2024 CT abdomen/pelvis without contrast: Cholelithiasis with gallbladder wall thickening and some very cholecystic fluid is noted, raising the possibility for acute cholecystitis. Splenomegaly is seen. There is mild urinary bladder wall
thickening with a Cespedes catheter in place. Please see full dictation for additional detail.
Cardiac Imaging:
05/06/2024 ECHO (TTE): Normal left ventricular size, with mildly reduced systolic function, EF approximately 40%. Stage II diastolic dysfunction is noted. Right ventricle is normal. Pacemaker wires noted in the right ventricle. There is severe
biatrial dilatation. There is mild mitral valve regurgitation. No intracardiac mass or thrombus formation is seen.
Care Review
Plan reviewed with: Physician (Dr Bryant & Dr Yuan - mri brain)
--- NOTE | 2024-05-10 11:57 | W.PN.NEPH.PH ---
Today's Communication / Plan
-
Initiate Bumex 1 mg daily
Maintain Zaragoza cath
Assessment/Plan
-
Assessment:
Sepsis with Strept Bacteremia
Upper extremity weakness
Hematuria:? Traumatic Zaragoza catheter exchange and also underlying use of Eliquis
Hypotension
LENI on CKD-baseline cr 1-1.3
hypokalemia
Abnormal thyroid test
Anemia
Acute on Chronic thrombocytopenia
Paroxysmal atrial fibrillation
Diabetes mellitus type 2
Hyperlipidemia
Chronic HFpEF
CAD/PVD/CVA
Chronic pain syndrome/spinal stenosis/chronic narcotics dependence
History of ulcerative colitis/GERD/GI bleed
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
CAD/MA/CABG 2009
Chronic LBBB
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
Chronic right lower extremity lymphedema
Hx CVA per CT head
Hx subdural hematoma after mechanical fall
Hx orthostatic hypotension/HTN
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
Chronic pain syndrome secondary to spinal stenosis on chronic opiate patch
GERD/Hx GI bleed
Hx ulcerative colitis- azathioprine
Anxiety
Chronic ambulatory dysfunction with chronic foot and ankle deformities
Hypoalbuminemia
Plan:
A/w UE weakness, sepsis and group C bacteremia
creatinine downn to 1.6, uop ~900cc via zaragoza, weights unchanged but patient with significant edema
-I will reintroduce Bumex at 1 mg
hemodynamically stable
suspect prerenal specially with low BPs vs infection , U na low
microhematuria with zaragoza, neg U eosinopils,, complements to r/o ICGN
C3 low
ASO positive
monitor UOP, non oliguric with zaragoza
CT on admit with out hydronephrosis
wt stable with known CHF , echo noted EF 40-45%
bp are soft, coreg with holding parameters,
thrombocytopenia-chronic was seen by heme before
dose meds renally, abx per ID
TSH low and high FT4 on Amiodarone-defer to primary
avoid nephrotoxins
replace K prn
follow labs
-
-
Date of Service: May 10, 2024
CC / HPI / ROS
-
Chief Complaint:
LENI
History of Present Illness:
Creatinine up to 1.6
Hemodynamically labile
Review of Systems:
no sob at rest
no n/v
still UE weakness can not feed himself
Zaragoza :nonoliguric
weight stable
no fevers
Labs
-
Labs:
WBC 6.1 10^3/uL (4.8-10.8) 05/10/24 05:29
RBC 3.40 10^6/uL (4.70-6.10) L 05/10/24 05:29
Hgb 8.3 g/dL (13.0-18.0) L 05/10/24 05:29
Hct 24.7 % (39.0-52.0) L 05/10/24 05:29
Plt Count 118 10^3/uL (130-400) L D 05/10/24 05:29
Sodium 134 mmol/L (135-145) L 05/10/24 06:40
Potassium 4.0 mmol/L (3.5-5.1) 05/10/24 06:40
Chloride 102 mmol/L (98-107) 05/10/24 06:40
Carbon Dioxide 22 mmol/L (22-30) 05/10/24 06:40
BUN 79 mg/dl (9-20) H 05/10/24 06:40
Creatinine 1.6 mg/dL (0.7-1.3) H 05/10/24 06:40
eGFR 42.49 05/10/24 06:40
Glucose 186 mg/dl (70-99) H 05/10/24 06:40
Calcium 9.0 mg/dl (8.4-10.2) 05/10/24 06:40
Albumin 2.6 g/dl (3.5-5.0) L 05/09/24 04:48
Physical Exam
-
Vital Signs:
Vital Signs
Temp Pulse Resp BP Pulse Ox
98.7 F 60 15 116/61 97
05/10/24 07:51 05/10/24 09:37 05/10/24 08:00 05/10/24 09:37 05/10/24 08:00
Cardiovascular:: Regular rate and rhythm
Respiratory:: Bilateral: CTA
Lung Excursion:: Normal
Abdomen:: Nontender and Soft
Bowel Sounds:: Normal
Extremity Edema:: +2: Bilateral:
Zaragoza Catheter: Yes
[2024-05-10 12:02] LABS: Glucose - Point of Care 227 mg/dl (70-99)
--- NOTE | 2024-05-10 12:17 | PN.CDI ---
CDI
- -
CDI:
Physician Documentation Request
Admit Date: 05/04/24 17:16
Dear Doctor Kacy,
Please review the following and provide your response in the progress notes.
Clinical Indicators:
The diagnosis of CAUTI was documented on 05/04 H&P.
- 05/04 H&P 'Sepsis due to catheter associated urinary tract infection'
- 05/06 PN 'Sepsis unclear source with Strept Bacteremia...vs ?catheter associated urinary tract infection'
- 05/10 PN 'Sepsis with Strep Bacteremia'
- 'Exchanged Cespedes catheter this admission '
- 05/04 UC with mixed nino
- IV abx Ceftriaxone, Zosyn, Vancomycin
Please clarify the following:
____ - CAUTI was present on admission and is now resolved.
____ - CAUTI was present on admission and is still being monitored, evaluated or treated
____ - CAUTI was ruled out
____ - CAUTI is still a likely, suspected, probable diagnosis
____ - Other
Use of terms such as suspected, likely, concern for, or probable (associated with a specific diagnosis that is being evaluated, monitored, or treated as if it exists) are acceptable and can be coded in the inpatient setting, when documented at the
time of discharge.
Thank you,
Prachi Bhakta RN
CDI Specialist
Please use your independent medical judgment in providing your response.
[2024-05-10] MEDS: BUMEX 1 MG PO (12:22)
[2024-05-10] MEDS: NOVOLOG FLEXPEN 8 UNITS SC ×2 (12:23→17:32)
[2024-05-10] MEDS: NOVOLOG FLEXPEN-MODERATE RESISTANCE 5 UNITS SC (12:24)
--- NOTE | 2024-05-10 15:32 | PTCARENOTE ---
Patient AOx3. Patient forgetful at times. 100% a paced with BBB and first degree on monitor. Patient on RA with SpO2 greater than 92%. HOLLOWAY. Patient on enhanced precautions due to positive c diff result. Patient incontinent to stool. Chronic zaragoza
draining karena urine. Scrotal edema present. Generalized anasarca edema noted. L AKA. Assist x2 for q2 turns. Call cobos within reach, bed in lowest position, and wheels locked.
[2024-05-10 17:23] LABS: Glucose - Point of Care 211 mg/dl (70-99)
[2024-05-10] MEDS: LANTUS 0.05 UNITS SC (20:40)
[2024-05-10] MEDS: LIPITOR 80 MG PO (21:32)
[2024-05-10] MEDS: DURAGESIC 25 MCG/HR PATCH 1 PATCH TRANSDERM (23:00)
[2024-05-11 03:12] VITALS: BP 105/41
--- NOTE | 2024-05-11 04:18 | DOWNTIME ---
There was a [employer] Client Limousine Driver Downtime on 05/11/2024 from 0100 to 05/11/2024 at 0350. Downtime documentation of patient's care, including medication administrations, has been reconciled in the electronic record per guidelines. Refer to the
patient's paper chart under the miscellaneous tab to see printed paper medication records and downtime forms.
[2024-05-11] MEDS: FIRVANQ 125 MG PO ×4 (05:41→23:03)
[2024-05-11] MEDS: TYLENOL 650 MG PO (05:47)
[2024-05-11 07:00] VITALS: BP 97/40
[2024-05-11 07:10] LABS: Glucose - Point of Care 155 mg/dl (70-99)
[2024-05-11] MEDS: DUONEB 3 ML INH ×2 (07:38→19:40)
[2024-05-11 08:33] LABS: Hematocrit 23.7 % (39.0-52.0); Hemoglobin 7.7 g/dL (13.0-18.0); Mean Corp Hgb Conc. 32.5 g/dL (33.0-37.0); Mean Corpuscular Hgb 24.3 pg (27.0-31.0); Mean Corpuscular Volume 74.8 fL (80.0-94.0); Platelet Count 128 10^3/uL (130-400); Red Blood Cell Count 3.17 10^6/uL (4.70-6.10); Red Cell Dist. Width 19.4 % (11.5-14.5); White Blood Cell Count 8.5 10^3/uL (4.8-10.8)
[2024-05-11] MEDS: NOVOLOG FLEXPEN 8 UNITS SC ×3 (09:06→17:19)
[2024-05-11] MEDS: NOVOLOG FLEXPEN-MODERATE RESISTANCE 1 UNITS SC ×2 (09:06→12:18)
[2024-05-11] MEDS: BUMEX 1 MG PO (09:07)
[2024-05-11] MEDS: COREG PO (09:07)
[2024-05-11] MEDS: ASPIR LOW (ENTERIC COATED) 81 MG PO (09:07)
[2024-05-11] MEDS: ELIQUIS 2.5 MG PO ×2 (09:07→19:59)
[2024-05-11] MEDS: FLUSH (NSS) IV ×2 (09:08→09:40)
[2024-05-11] MEDS: MYCOSTATIN ORAL SUSPENSION 5 ML PO ×4 (09:08→23:02)
[2024-05-11] MEDS: PACERONE 200 MG PO (09:08)
[2024-05-11] MEDS: PROTONIX 20 MG PO (09:08)
[2024-05-11] MEDS: QUESTRAN 4 GRAM PO (09:08)
[2024-05-11] MEDS: FOLTX 1 TABLET PO (09:08)
[2024-05-11] MEDS: ROCEPHIN 2000 MG IV (09:09)
[2024-05-11] MEDS: STERILE WATER FOR INJECTION 20 ML IV (09:09)
--- NOTE | 2024-05-11 09:39 | WOUNDNOTE ---
R CALF (LATERAL)(with photo flash)
--- NOTE | 2024-05-11 09:40 | WOUNDNOTE ---
R CALF (LATERAL)(with photo flash)
--- NOTE | 2024-05-11 09:54 | WOUNDNOTE ---
[facility] RN note: Patient's R lateral calf wound smaller than last week, pink with purple ecchymotic area on lateral edge. R dorsal foot with new 1cm sized purple ecchymotic area with small linear purple area lateral to it suspect from Tubigrip use,
history of low platelets and PAD. He was last seen by Vascular 04/08/24 as an outpatient and is to follow up in 6 weeks, 04/05/24 R toe pressure .58. R pedal pulse heard via portable Doppler. +2 RLE edema. Skin on R heel blanchable mild red and
intact. Coccyx/buttocks stage 2 pink with scabs. Scrotal skin with scattered small open abrasions suspect from incontinence, edema and friction. RLE dressing changed. Silicone border foam applied on R dorsal foot. Protective foam change on R heel
and applied to R medial ankle. Silicone border foam changed on coccyx. Patient turned to L semi side lying position with help from PCT Aramis. R heel off bed with patient's low profile Roho air cushion. Patient is on a Waffle air overlay. Discussed
with TOOTIE Soriano texted Dr. Mabry re: new purple area on R foot asking if wants Tubigrip stopped vs use larger size and remove q hs. Await response.
--- NOTE | 2024-05-11 10:15 | CM ---
manager professional development reviewed patient's chart and met with patient this am, and wound care, who recommended an air mattress for patient at [facility], supervisor case loading spoke with nursing at [facility] and confirmed that patient has an air mattress. No
auth required for patient to return to [facility].
Plan: Patient to return to [facility] when stable.
[facility]
Report [phone]
--- NOTE | 2024-05-11 10:29 | W.PN.HOSP.TC ---
Addendum entered and electronically signed by Trinity Woodruff MD 05/11/24 12:58:
# Unclear if pt has CAUTI or not- likely not.
Original Note:
Today's Communication/Plan
-
see A/P
Assessment / Plan
Assessment / Plan
Echocardiogram:
1. Left ventricle: Normal size and mildly reduced systolic function with an
estimated ejection fraction of 40-45% by Pond's method of discs. The left
ventricle is globally hypokinetic. Stage II diastolic dysfunction is noted.
2. Right ventricle: Normal. A pacemaker wire is noted in the right ventricle
3. Atria: Severe biatrial dilation
4. Mitral valve: Mild mitral regurgitation
5. Aortic valve: Trace aortic insufficiency
6. Tricuspid valve: Moderate tricuspid regurgitation
7. Change this have occurred when compared to the most recent echocardiogram
from 05/05/2023. The estimated ejection fraction on the prior study was 55%
and is 40-45% on the present study. The ventricle is globally hypokinetic.
A/P:
# Sepsis with Strep Bacteremia:
Continue IV ceftriaxone 2 g daily likely 6 week course
Cervical MRI no�spinal epidural abscess. Transthoracic echo no vegetations.
TTE unrevealing, ID request ZACHARY since pt has PPM , plan for Sunday 05/13
Cespedes catheter exchanged this admission
No evidence of cholecystitis clinically.
ID on board
# C. diff colitis
started PO vancomycin
ID on board
# Upper extremity weakness likely related to cervical stenosis
Appreciated neurology and neurosurgery consults
MRI cervical spine noted significant spinal stenosis. MRI brain unrevealing. Carotid Doppler US noted BL calcified vessels, but less than 50% bilateral internal carotid artery stenosis.
Continue aspirin
PT OT note indicated that pt is non-ambulatory at baseline, so no skilled PT warranted
# Suspect hyperthyroidism
TSH < 0.02, FT4 at 7.70
Could arm weakness be related to hyperthyroidism?
start empiric methimazole 5 mg
recc outpt TFT in 4-6 weeks, informed
# LENI on CKD 3
# suspect prerenal LENI with low BPs vs infection
Creatinine 1.6 yesterday, peaked at 1.8; from 1.3 on admission. No BMP yet from today
Avoid nephrotoxic
Nephrology on board
# Hypokalemia, resolved
# Anemia
Continue to monitor hemoglobin closely
# Elevated LFTs, improving
Continue to trend LFT
Resumed Lipitor 80 mg
# Hematuria, Resolved. Likely due to traumatic Cespedes catheter exchange and also underlying use of Eliquis
Resumed Eliquis 2.5 BID and aspirin
Monitor hemoglobin
# Hypotension, Improved
Off IV fluids
# Paroxysmal atrial fibrillation:
On rate control carvedilol 3.125 mg twice a day with holding parameters
IV Lopressor as needed
Continue antiarrhythmic amiodarone 200 mg daily
Continue anticoagulation, Eliquis 2.5 mg twice a day
# Diabetes mellitus type 2:
Resume home long-acting Lantus 5 units HS and short acting insulin 5 units AC
Continue insulin sliding scale
# Hyperlipidemia:
Resume statins
# Chronic HFpEF:
Holding diuretics, resume if renal function back to baseline
Monitor volume status
# CAD/PVD/CVA:
Continue anti-ischemic regimen
# Chronic pain syndrome/spinal stenosis/chronic narcotics dependence:
Continue fentanyl patch
IV Dilaudid as needed
# History of ulcerative colitis/GERD/GI bleed:
Monitor GI symptoms
# Chronic thrombocytopenia:
Monitor platelet count and signs of bleeding
Platelet count improved to 128
DVT prophylaxis: Eliquis 2.5 mg twice a day
CODE STATUS: Full code
DW at bedside
total time spent 51 min
Anticipated Discharge: > 48 hours
Subjective/Interval History
-
Date of Service: May 11, 2024
Objective Data
-
Labs:
Laboratory Results
05/11/24
07:20
WBC 8.5
Hgb 7.7 L
Hct 23.7 L
Plt Count 128 L
Sodium Pending
Potassium Pending
Chloride Pending
Carbon Dioxide Pending
BUN Pending
Creatinine Pending
Glucose Pending
Calcium Pending
Total Bilirubin Pending
AST Pending
ALT Pending
Alkaline Phosphatase Pending
Vital Signs:
Vital Signs
Temp Pulse Resp BP Pulse Ox
37.9 C 66 16 97/40 94
05/11/24 07:00 05/11/24 07:40 05/11/24 07:00 05/11/24 07:00 05/11/24 07:40
I&O
05/10/24 05/11/24 05/12/24
06:59 06:59 06:59
Intake Total 600 / 600 480 / 480
Output Total 900 / 900 1650 / 1650
Balance -300 / -300 -1170 / -1170
Review of Systems
-
Neuro: Reports Weakness (BL upper extremities )
Physical Exam
-
General: Well Developed, Comfortable, Conversant and Appears Chronically Ill
HEENT: Hearing Impaired
Respiratory: Clear to Auscultation and Non Labored Respirations; Negative Accessory Resp Muscle Use
Cardiac: Regular Rhythm and S1/S2
GI: Soft and Nontender
Genito-urinary: Cespedes; Negative Continuous Bladder Irrigation
Musculoskeletal: Other (Left AKA)
Skin: Other (see wound care note )
Neuro: Awake and Alert
Psych: Calm and Intact Judgement/Insight (somewhat)
Data Reviewed
-
MRI: Report Reviewed by me
Labs: Labs Reviewed by me
[2024-05-11 11:06] VITALS: BMI 29.6
[2024-05-11 11:08] LABS: ALT (SGPT) 45 U/L (0-50); AST (SGOT) 39 U/L (17-59); Albumin 2.5 g/dl (3.5-5.0); Alkaline Phosphatase 142 U/L (38-126); Blood Urea Nitrogen 78 mg/dl (9-20); Calcium 8.9 mg/dl (8.4-10.2); Carbon Dioxide 20 mmol/L (22-30); Chloride 102 mmol/L (98-107); Direct Bilirubin 0.7 mg/dl (0.0-0.4); Estimated Creatinine Clearance 31 ml/min; Glucose 105 mg/dl (70-99); Magnesium 1.9 mg/dl (1.6-2.3); Potassium 3.7 mmol/L (3.5-5.1); Sodium 134 mmol/L (135-145); Total Bilirubin 1.3 mg/dl (0.2-1.3); Total Protein 5.5 g/dl (6.3-8.2); eGFR 39.51
--- NOTE | 2024-05-11 11:25 | WOUNDNOTE ---
[facility] RN note: Dr. Mabry responded to tiger text requesting using a larger size tubigrip and to remove q hs. Dr. Woodruff approved local care R dorsal foot and update Tubigrip order. t/c SPD and ordered size G Tubigrip. Updated TOOTIE Arana via tiger text.
[2024-05-11 11:32] VITALS: BP 94/40
[2024-05-11] MEDS: TAPAZOLE 5 MG PO (11:34)
[2024-05-11 12:01] LABS: Glucose - Point of Care 154 mg/dl (70-99)
--- NOTE | 2024-05-11 12:40 | CON.CAR ---
Addendum entered and electronically signed by Shaquille Mata MD 05/11/24 18:41:
83-year-old medically very complex man admitted now with group C strep bacteremia and C. difficile enterocolitis. 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
a watershed distribution. Also found to be hyperthyroid at the present time. 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
transesophageal echo.
PMH: Chronic HFpEF, paroxysmal atrial fibrillation, Medtronic pacemaker April 2023, left bundle branch block, subdural hematoma, CABG in 2009, LAD PCI 2014, sequential SVG to [id number] occluded, circumflex PCI 2020, spinal stenosis, left
AKA, hypertension, hyperlipidemia, GERD, CKD, ulcerative colitis, thrombocytopenia, history of GI bleed, diabetes
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
Allergies: Sulfa
Outpatient cardiac meds: Amiodarone 200 mg a day, aspirin 81 mg a day, atorvastatin 80 mg a day, azathioprine 75 mg a day, bumetanide 0.5 mg daily, carvedilol 3.125 mg twice daily, cholestyramine, Eliquis 2.5 mg twice daily, fentanyl, insulin,
lactulose, metolazone? Lyrica, tamsulosin
Current meds: Vancomycin 125 mg every 6 hours, insulin, amiodarone 200 mg a day, apixaban 2.5 mg twice daily, aspirin 81 mg a day, atorvastatin 80 mg daily, fentanyl patch, Protonix, carvedilol 3.125 twice daily, Rocephin, cholestyramine, Bumex 1 mg
daily, methimazole 5 mg daily, methylprednisolone 1000 mg daily
114/56, pulse 52, respiratory rate 16, afebrile, chronically ill-appearing, not in acute distress, neuro notable for upper extremity weakness, lungs are relatively clear, JVD probably normal, No obvious murmurs, extremity with left AKA, right leg
wrapped, with dressings on heel,
hemoglobin 7.7, MCV 75, BUN and creatinine 78 and 1.7
EKG pending
Impression:
Group C strep bacteremia
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
C. diff colitis
LENI on CKD 3
Hyperthyroidism, newly diagnosed
LENI
Chronic HFpEF
Paroxysmal Afib
s/p CV in ER 08/01/20
s/p CV in ER 03/30/23
Chronic Eliquis OAC
SSS, tachy-rufus
s/p Medtronic DC PPM 04/16/23Chronic LBBB
h/o falls 08/2022 resulting in bruising and 11/2022 resulting in SDH
CAD
s/p CABG x5 in 2009
s/p LAD PCI 06/2014, cath showed SVG to diag sequential to OM1 seq to OM2 100% occluded
s/p PCI LCX EMELINA 08/02/20 complicated by small groin PSA treated with thrombin injection in IR 08/02/20severe spinal stenosis s/p radiofrequency ablation
PAD
s/p L AKA 06/26/2023
s/p RLE arteriogram, lithotripsy, angioplasty, and wound debridement 11/21/2023HTN
HLD
GERD
CKD
Ulcerative colitis
chronic thrombocytopenia
h/o GI bleed
DM-2
Plan:
He presents with strep bacteremia and there is concern regarding endocarditis or possibly an infection of his CIED/pacemaker.
Volume status seems reasonable at present. Overall hemodynamic status is satisfactory despite his very extensive cardiovascular history.
Will tentatively plan on proceeding with transesophageal echo on Thursday looking for evidence of valvular vegetations or possibly infection of pacemaker leads
Given concerns regarding 'man in a barrel' syndrome, will need to confirm with neurology that this is from watershed distribution ischemia rather than a brainstem issue or cervical stenosis that would preclude safe performance of transesophageal
echo.
His most recent EF is 40 to 45%, and EF has ranged from 40-45% in 2020 to 55% in late 2022. Would not change medications at this time
Original Note:
Consultation
Consultation Request
Date/Time Consultation Requested: 05/11/2024
Date/Time Consultation Performed: 05/11/2024
Requesting Provider: Dr. Orosco
Performing Provider: Princess Ackerman PA-C for Dr. BLANQUITA Mata
Reason for Consultation: ZACHARY
Medical History
-
History of Present Illness:
HPI : Antoine is an 83-year-old male with past medical history of chronic HFpEF, paroxysmal atrial fibrillation, tachybradycardia status post permanent pacemaker, prior SDH, CAD status post CABG with subsequent PCI, spinal stenosis, PAD, hypertension,
hyperlipidemia, GERD, CKD, UC, thrombocytopenia, prior GI bleed, and DM 2. He presented to ER for evaluation of fever. Had also been having general malaise and lethargy over the past 2 days with significant upper extremity weakness. He was
febrile in ER with temperature of 101.8 with lactic acid of 2.1. He was admitted for further workup and management. He was started on IV antibiotics. Unclear source of infection. Blood cultures returned positive for strep. Also with evidence of
C. difficile colitis and started on vancomycin. Also noted to be hyperthyroid with TSH <0.02 with free T47.7. He had echocardiogram 05/06/2024 which was without evidence of endocarditis. Cardiology consulted now for consideration of ZACHARY given
strep bacteremia with unclear source. Patient continues to feel poorly and his main complaint is his upper extremity weakness.
PMH:
Chronic HFpEF
Paroxysmal Afib
s/p CV in ER 08/01/20
s/p CV in ER 03/30/23
Chronic Eliquis OAC
SSS, tachy-rufus
s/p Medtronic DC PPM 04/16/23
Chronic LBBB
h/o falls 08/2022 resulting in bruising and 11/2022 resulting in SDH
CAD
s/p CABG x5 in 2009
s/p LAD PCI 06/2014, cath showed SVG to diag sequential to OM1 seq to OM2 100% occluded
s/p PCI LCX EMELINA 08/02/20 complicated by small groin PSA treated with thrombin injection in IR 08/02/20
severe spinal stenosis s/p radiofrequency ablation
PAD
s/p L AKA 06/26/2023
s/p RLE arteriogram, lithotripsy, angioplasty, and wound debridement 11/21/2023
HTN
HLD
GERD
CKD
Ulcerative colitis
chronic thrombocytopenia
h/o GI bleed
DM-2
Past Medical History
Past Medical History: Other (in HPI)
Social History
Tobacco: Non-Smoker
Alcohol: None
Personal:
Living: With Family
Employment: Retired
Family History
Family History: CAD
Allergies / Home Medications
Allergy/AdvReac Type Severity Reaction Status Date / Time
Sulfa (Sulfonamide Allergy Hives Verified 05/04/24 14:45
Antibiotics)
sulfasalazine Allergy mother Verified 05/04/24 14:45
states
hives
�Medication �Instructions �Recorded �Confirmed �Type
atorvastatin 80 mg tablet 80 mg PO DAILY@2030 High 03/30/23 05/04/24 History
Cholesterol
folic acid-vit B6-vit B12 2.5 1 tab PO DAILY Supplement 04/16/23 05/04/24 History
mg-25 mg-2 mg tablet (Folbic)
carvedilol 3.125 mg tablet 3.125 mg PO BID #60 tabs 04/17/23 05/04/24 Rx
amiodarone 200 mg tablet 200 mg PO DAILY Arrhythmia 05/04/23 05/04/24 History
acetaminophen 325 mg tablet 650 mg PO Q4HPRN PRN mild 06/22/23 05/04/24 History
pain/fever>100.4
bisacodyl 10 mg rectal suppository 10 mg RI DAILYPRN PRN 3 days no 06/22/23 05/04/24 History
bm, lactulose ineffective
fluticasone propionate 50 1 spray intranasal QPM Allergies 06/22/23 05/04/24 History
mcg/actuation nasal
spray,suspension
insulin lispro 100 unit/mL 0 - 12 sliding scale dose SC 06/22/23 05/04/24 History
subcutaneous pen (Humalog KwikPen TID@0730,1230,1730 Diabetes
(U-100) Insulin)
lactulose 20 gram/30 mL oral 20 g PO HSPRN PRN Constipation 06/22/23 05/04/24 History
solution
naloxone 4 mg/actuation nasal 4 mg intranasal DAILYPRN PRN 06/22/23 05/04/24 History
spray (Narcan) opioid overdose
pregabalin 75 mg capsule (Lyrica) 75 mg PO TID Pain 06/22/23 05/04/24 History
azathioprine 75 mg tablet 75 mg PO DAILY ulcerative colitis 09/14/23 05/04/24 History
apixaban 2.5 mg tablet (Eliquis) 2.5 mg PO BID #60 tabs 09/23/23 05/04/24 Rx
fentanyl 25 mcg/hr transdermal 1 patch transdermal Q72H Pain #1 ea 09/23/23 05/04/24 Rx
patch
tamsulosin 0.4 mg capsule 0.4 mg PO DAILY 30 days #30 caps 09/23/23 05/04/24 Rx
ipratropium 0.5 mg-albuterol 3 mg 3 ml inhalation R BID 11/14/23 05/04/24 History
(2.5 mg base)/3 mL nebulization Lung/Breathing Issues
soln
aspirin 81 mg tablet,delayed 81 mg PO DAILY #1 tab 11/27/23 05/04/24 Rx
release
bumetanide 0.5 mg tablet 0.5 mg PO DAILY Fluid 11/27/23 05/04/24 Rx
Retention/Swelling #0 tabs
insulin glargine 100 unit/mL 5 unit (0.05 mL) SC DAILY@202911/27/23 05/04/24 Rx
subcutaneous solution (Lantus Diabetes #0 mL
U-100 Insulin)
cholestyramine (with sugar) 4 gram 4 g PO DAILY High Cholesterol 05/04/24 05/04/24 History
powder for susp in a packet
(Questran)
diphenoxylate-atropine 2.5 1 tab PO DAILYPRN PRN diarrhea 05/04/24 05/04/24 History
mg-0.025 mg tablet
insulin lispro 100 unit/mL 5 unit SC TID Diabetes 05/04/24 05/04/24 History
subcutaneous pen (Humalog KwikPen
(U-100) Insulin)
ipratropium 0.5 mg-albuterol 3 mg 3 ml inhalation R Q6HPRN PRN cough 05/04/24 05/04/24 History
(2.5 mg base)/3 mL nebulization
soln
loperamide 2 mg tablet 2 mg PO Q6HPRN PRN diarrhea 05/04/24 05/04/24 History
metolazone 2.5 mg tablet 2.5 mg PO DAILY Pain 05/04/24 05/04/24 History
mineral oil 1 applic topical DAILY right foot 05/04/24 05/04/24 History
pantoprazole 20 mg tablet,delayed 20 mg PO DAILY Gastrointestinal 05/04/24 05/04/24 History
release Issue
therapeutic multivitamin 1 tab PO DAILY Supplement 05/04/24 05/04/24 History
Review of Systems
-
History Source: Patient
All other systems: Negative unless noted
Physical Exam
Vital Signs
Temp Pulse Resp BP Pulse Ox
99.6 F 62 16 94/40 96
05/11/24 11:32 05/11/24 11:32 05/11/24 11:32 05/11/24 11:32 05/11/24 11:32
Lab Results
05/11/24 07:20
05/11/24 07:20
Physical Exam
General: No Apparent Distress
HEENT: Normocephalic and Moist Mucous Membranes
Respiratory: Clear and Non Labored Respirations
Cardiac: S1/S2 and Regular Rhythm
Musculoskeletal: No Clubbing and No Cyanosis
Skin: Warm and Dry
Neuro: AO x 3
Psych: Calm
Impression / Plan
-
PCP: Dr. Shaquille Mata
Appointment Clerk: Dr. Bermudez
Impression:
Presented with fever, weakness
Strep bacteremia, unclear source
Upper extremity weakness
C. diff colitis
Hyperthyroidism, newly diagnosed
LENI
Chronic HFpEF
Paroxysmal Afib
s/p CV in ER 08/01/20
s/p CV in ER 03/30/23
Chronic Eliquis OAC
SSS, tachy-rufus
s/p Medtronic DC PPM 04/16/23
Chronic LBBB
h/o falls 08/2022 resulting in bruising and 11/2022 resulting in SDH
CAD
s/p CABG x5 in 2009
s/p LAD PCI 06/2014, cath showed SVG to diag sequential to OM1 seq to OM2 100% occluded
s/p PCI LCX EMELINA 08/02/20 complicated by small groin PSA treated with thrombin injection in IR 08/02/20
severe spinal stenosis s/p radiofrequency ablation
PAD
s/p L AKA 06/26/2023
s/p RLE arteriogram, lithotripsy, angioplasty, and wound debridement 11/21/2023
HTN
HLD
GERD
CKD
Ulcerative colitis
chronic thrombocytopenia
h/o GI bleed
DM-2
ECHO 08/02/20: EF 40-45%, basal to mid inferior and posterior lateral hypokinesis, mild concentric LVH, mild MAC, trace MR, mild aortic insufficiency, mild TR, PAP 36-41 mmHg
Echo 05/14/21: Ejection fraction 50-55%, mild MR
ECHO 04/16/23: EF 50%, hypokinesis of inferolateral wall, mild concentric LVH, mild MR, mild AR, mild TR, PAP 26 mmHg, trace RI
ECHO 05/05/23: Technically fair, EF 55%, biatrial enlargement, no significant valve disease, no pericardial effusion
Echo 05/06/2024: EF 40 to 45%, stage II diastolic dysfunction, mild MR, trace AI, moderate TR
Plan:
-Presented with fevers and weakness. Being treated for strep bacteremia. Unclear source.
-Continue ABX per primary service/ID.
-Cardiology consulted for consideration of ZACHARY. Echo 05/06/2024 with EF 40 to 45%. No evidence of vegetation noted.
-Patient is agreeable to ZACHARY. If ZACHARY would roll changer, would be reasonable to proceed on 05/13/2024.
-Patient with LENI on admission. Nephrology following. Creatinine 1.7 05/11/2024. PO Bumex restarted this AM
-New hypothyroidism noted. Continue methimazole per primary service.
-Continues on aspirin and Eliquis. History of A-fib and CAD. Hemoglobin 7.7 this a.m. Continue to follow closely.
-Maintaining sinus rhythm on amiodarone 200 mg daily. Continue.
-Continue medical therapy for mildly reduced EF with Coreg 3.125 mg twice daily. Otherwise, medical therapy limited by hypotension and renal function.
HPI : Antoine is an 83-year-old male with past medical history of chronic HFpEF, paroxysmal atrial fibrillation, tachybradycardia status post permanent pacemaker, prior SDH, CAD status post CABG with subsequent PCI, spinal stenosis, PAD, hypertension,
hyperlipidemia, GERD, CKD, UC, thrombocytopenia, prior GI bleed, and DM 2. He presented to ER for evaluation of fever. Had also been having general malaise and lethargy over the past 2 days with significant upper extremity weakness. He was
febrile in ER with temperature of 101.8 with lactic acid of 2.1. He was admitted for further workup and management. He was started on IV antibiotics. Unclear source of infection. Blood cultures returned positive for strep. Also with evidence of
C. difficile colitis and started on vancomycin. Also noted to be hyperthyroid with TSH <0.02 with free T47.7. He had echocardiogram 05/06/2024 which was without evidence of endocarditis. Cardiology consulted now for consideration of ZACHARY given
strep bacteremia with unclear source. Patient continues to feel poorly and his main complaint is his upper extremity weakness.
Data Reviewed
-
EKG: Tracing Personally Visualized and interpreted
Radiology: Report Reviewed by me
MRI: Report Reviewed by me
Medical Tests (Nuc Med, Echo etc): Report Reviewed by me
Labs: Labs Reviewed by me
Old Records: Reviewed
--- NOTE | 2024-05-11 15:51 | W.PN.NEPH.PH ---
Today's Communication / Plan
-
cont bumex and follow labs
Assessment/Plan
-
Assessment:
Sepsis with Strept Bacteremia
Upper extremity weakness
Hematuria:? Traumatic Zaragoza catheter exchange and also underlying use of Eliquis
Hypotension
LENI on CKD-baseline cr 1-1.3
hypokalemia
Abnormal thyroid test
Anemia
Acute on Chronic thrombocytopenia
Paroxysmal atrial fibrillation
Diabetes mellitus type 2
Hyperlipidemia
Chronic HFpEF
CAD/PVD/CVA
Chronic pain syndrome/spinal stenosis/chronic narcotics dependence
History of ulcerative colitis/GERD/GI bleed
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
CAD/MS/CABG 2009
Chronic LBBB
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
Chronic right lower extremity lymphedema
Hx CVA per CT head
Hx subdural hematoma after mechanical fall
Hx orthostatic hypotension/HTN
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
Chronic pain syndrome secondary to spinal stenosis on chronic opiate patch
GERD/Hx GI bleed
Hx ulcerative colitis- azathioprine
Anxiety
Chronic ambulatory dysfunction with chronic foot and ankle deformities
Hypoalbuminemia
Plan:
A/w UE weakness, sepsis and group C bacteremia
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
weights up and he is on RA
would cont bumex 1mg daily(home 0.5mg), may add additional dose if needed
microhematuria with zaragoza, neg U eosinophil
CT on admit with out hydronephrosis
echo noted EF 40-45%
bp are soft, coreg with holding parameters,
thrombocytopenia-chronic was seen by heme before
dose meds renally, abx per ID
TSH low and high FT4 on Amiodarone-defer to primary-methimazole started
avoid nephrotoxins
follow h/h , hb at 7.7
monitor met acidosis
follow labs
-
-
Date of Service: May 11, 2024
CC / HPI / ROS
-
Chief Complaint:
LENI
History of Present Illness:
Creatinine up to 1.7
Hemodynamically soft BPs
wt is up, on RA
non oliguric with zaragoza
Review of Systems:
no sob at rest
no n/v
still UE weakness can not feed himself
no fevers
Labs
-
Labs:
WBC 8.5 10^3/uL (4.8-10.8) 05/11/24 07:20
RBC 3.17 10^6/uL (4.70-6.10) L 05/11/24 07:20
Hgb 7.7 g/dL (13.0-18.0) L 05/11/24 07:20
Hct 23.7 % (39.0-52.0) L 05/11/24 07:20
Plt Count 128 10^3/uL (130-400) L 05/11/24 07:20
Sodium 134 mmol/L (135-145) L 05/11/24 07:20
Potassium 3.7 mmol/L (3.5-5.1) 05/11/24 07:20
Chloride 102 mmol/L (98-107) 05/11/24 07:20
Carbon Dioxide 20 mmol/L (22-30) L 05/11/24 07:20
BUN 78 mg/dl (9-20) H 05/11/24 07:20
Creatinine 1.7 mg/dL (0.7-1.3) H 05/11/24 07:20
eGFR 39.51 05/11/24 07:20
Glucose 105 mg/dl (70-99) H 05/11/24 07:20
Calcium 8.9 mg/dl (8.4-10.2) 05/11/24 07:20
Albumin 2.5 g/dl (3.5-5.0) L 05/11/24 07:20
Physical Exam
-
Vital Signs:
Vital Signs
Temp Pulse Resp BP Pulse Ox
99.6 F 62 16 94/40 96
05/11/24 11:32 05/11/24 11:32 05/11/24 11:32 05/11/24 11:32 05/11/24 11:32
Cardiovascular:: Regular rate and rhythm
Respiratory:: Bilateral: CTA (anteriorly)
Lung Excursion:: Normal
Abdomen:: Nontender and Soft
Extremity Edema:: +1: Right:
Zaragoza Catheter: Yes
Other Findings::
left AKA
[2024-05-11 16:15] VITALS: BP 114/56
[2024-05-11 16:31] LABS: Glucose - Point of Care 125 mg/dl (70-99)
--- NOTE | 2024-05-11 16:32 | W.PN.ID1 ---
Date of Service
Date of Service: May 11, 2024
Today's Communication
- MRI with contrast: no intracranial lesions, severe central cervical stenosis is noted but with sparing of the hands? - message left to neurology wondering about possible myositis workup
- check ck in the AM
- Continue with ceftriaxone - likely 6 week course
- c/w enteral vanco - would likely extend the course to while on ceftiraxone. Enhanced contact precautions.
Assessment / Plan
Bilateral Upper Extremity Weakness
- no osteo or epidural abscess seen on MRI imaging
- central canal stenosis
Group C Strep bacteremia
-Repeat blood cultures no growth
LENI
C. diff diarrhea
Hx Pacemaker
Chronic Thrombocytopenia
Dm2
- repeat blood cultures pending but show no growth to date
- 10/20 blood cultures 10 min apart both with group C strep
- TTE unrevealing, given pacemaker, typical organism for endocarditis without other clear etiology, suspicion of possible embolic strokes (watershed infarcts) - would consider ZACHARY when feasible - appreciate cardiology input
- MRI with contrast: no intracranial lesions, severe central cervical stenosis is noted but with sparing of the hands? - message left to neurology wondering about possible myositis workup
- Continue with ceftriaxone - likely 6 week course
- c/w enteral vanco - would likely extend the course to while on ceftiraxone. Enhanced contact precautions.
- will place PICC when approaching dc
- Follow white count & temperature curve.
����������������������������������������������������������
Chief Complaint
-: Bacteremia
Subjective / Review of Systems
afebrile
bp stable
tolerating ceftriaxone
Vital Signs / Physical Exam
Vital Signs
Vital Signs
Temp Pulse Resp BP Pulse Ox
98.9 F 52 16 114/56 95
05/11/24 16:15 05/11/24 16:15 05/11/24 16:15 05/11/24 16:15 05/11/24 16:15
Physical Exam
Constitutional: No Acute Distress
Cardiovascular: Regular Rate and S1/S2; Negative Murmur or Rub
Pulmonary: Clear and Symmetric; Negative Wheezes or Rales
Gastrointestinal: Soft, Non Tender, Non Distended and Normal Bowel Sounds
Skin: Warm and Dry; Negative Rash or Jaundice
Neurological: Other (needs assistance with feeding)
Objective Data
Lab Data
Lab Results
05/11/24 07:20
05/11/24 07:20
ESR 33 mm/hour (0-20) H 05/09/24 04:48
Estimated Creat Clear 31 ml/min 05/11/24 07:20
Lactic Acid Cancelled 05/05/24 06:23
Total Bilirubin 1.3 mg/dl (0.2-1.3) 05/11/24 07:20
AST 39 U/L (17-59) 05/11/24 07:20
ALT 45 U/L (0-50) 05/11/24 07:20
Alkaline Phosphatase 142 U/L (38-126) H 05/11/24 07:20
Most recent labs reviewed.
Micro Results:
05/06/24 15:42 Blood Culture - Final
Blood/Venous No Growth - Final Report
05/06/24 15:41 Blood Culture - Final
Blood/Venous No Growth - Final Report
05/09/24 12:17 Salmonella/Shigella Culture - Final
Feces/Stool No Salmonella, Shigella, Aeromonas or Plesiomonas species
isolated.
Campylobacter Culture - Final
No Campylobacter species isolated.
Shiga Toxin Test - Final
No E. coli Shiga Toxin 1 or 2 detected.
05/09/24 12:17 C. difficile GDH Antigen & Toxins - Final
Feces/Stool Toxigenic C.difficile Positive
- Final
Negative for Norovirus GI and GII.
05/04/24 15:12 Blood Culture - Final
Blood/Venous Group C Streptococcus
Gram Stain - Final
05/04/24 15:21 Blood Culture - Final
Blood/Venous Group C Streptococcus
Gram Stain - Final
05/04/24 15:12 Urine Culture - Final
Urine
05/04/24 20:10 MRSA Screen - Final
Nose No Methicillin Resistant Staphylococcus aureus isolated.
Imaging:
05/06/2024 MRI cervical spine: There is reversal of cervical lordosis. Multilevel degenerative disc disease is noted. No evidence of discitis or osteomyelitis. No epidural abscess noted.
05/06/2024 CT head without contrast: No acute intracranial abnormality noted. A small right mastoid effusion is seen.
05/04/2024 CT abdomen/pelvis without contrast: Cholelithiasis with gallbladder wall thickening and some very cholecystic fluid is noted, raising the possibility for acute cholecystitis. Splenomegaly is seen. There is mild urinary bladder wall
thickening with a Cespedes catheter in place. Please see full dictation for additional detail.
Cardiac Imaging:
05/06/2024 ECHO (TTE): Normal left ventricular size, with mildly reduced systolic function, EF approximately 40%. Stage II diastolic dysfunction is noted. Right ventricle is normal. Pacemaker wires noted in the right ventricle. There is severe
biatrial dilatation. There is mild mitral valve regurgitation. No intracardiac mass or thrombus formation is seen.
Care Review
Plan reviewed with: Physician (Dr Bryant- myositis? central canal stenosis)
[2024-05-11] MEDS: NOVOLOG FLEXPEN-MODERATE RESISTANCE SC (16:34)
--- NOTE | 2024-05-11 16:55 | W.PN.NEURO.1 ---
Today's Communication / Plan
-
Start high dose methylprednisolone (1 g IV) x 5 days
Resumed aspirin 81 mg QD
Continue apixaban due to history of atrial fibrillation
Check CPK
EMG to evaluate for possible myositis
Appreciate assistance from infectious disease and neurosurgery
Neuro Assessment/Plan
Assessment
Mr. Garcia endorses ongoing proximal arm weakness as new bilateral action hand tremor.
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 MRI of the brain eliminated the etiology of watershed infarcts. MRI of cervical spine demonstrated spinal cord narrowing without critical narrowing or changes in the cord. More likely
that the patient is experiencing a myositis. Less likely to be due to cholesterol-lowering medication because of the onset associated with fever.
II. 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
III. Pancytopenia
Plan
Start high dose methylprednisolone (1 g IV) x 5 days
Resumed aspirin 81 mg QD
Continue apixaban due to history of atrial fibrillation
Check CPK
EMG to evaluate for possible myositis
Appreciate assistance from infectious disease and neurosurgery
Will follow pending results
Subjective/Objective
Subjective Data
Date of Service: May 11, 2024
Patient reports no significant improvement in upper extremity function during his hospitalization.
Objective Data
Vital Signs
Temp Pulse Resp BP Pulse Ox
37.2 C 52 16 114/56 95
05/11/24 16:15 05/11/24 16:15 05/11/24 16:15 05/11/24 16:15 05/11/24 16:15
Lab Results
05/11/24 07:20
05/11/24 07:20
Sodium 134 mmol/L (135-145) L 05/11/24 07:20
Potassium 3.7 mmol/L (3.5-5.1) 05/11/24 07:20
BUN 78 mg/dl (9-20) H 05/11/24 07:20
Glucose 105 mg/dl (70-99) H 05/11/24 07:20
Calcium 8.9 mg/dl (8.4-10.2) 05/11/24 07:20
Vitamin B12 > 1000 pg/ml (239-931) H 05/09/24 04:48
Patient Allergies
Sulfa (Sulfonamide Antibiotics) Allergy (Verified 05/04/24 14:45)
Hives
sulfasalazine Allergy (Verified 05/04/24 14:45)
mother states hives
Review of Systems
-
History Source: Patient
All other systems: Reviewed and negative
Musculoskeletal: Negative Back Pain or Neck Pain
Neuro: Negative Headache
Physical Exam
-
General: No Apparent Distress and Appears Stated Age
Eyes: Round OU, [place] Conjunctivae and No Ptosis
HEENT: Anicteric and Moist Mucous Membranes
Neck: Full Range of Motion
Respiratory: No Dyspnea
Cardiac: No JVD
GI: Non-distended
Skin: Unremarkable
Extremities: No Clubbing, No Cyanosis, No Edema and Other (Left BKA)
Psych: Intact Judgement/Insight
Extended Neurological Exam
Mood & Affect: Mood Unremarkable and Affect Unremarkable
Attention Span & Concentration: Awake, Alert, Interactive and No Difficulty with 2 Step Request
Memory: Unremarkable
Tremor: Hand Tremor Absent and Head Tremor Absent
Speech: Quality Unremarkable and Quantity Unremarkable
Cranial Nerve II: Left Eye: Pupillary Size Unremarkable and Visual Ramachandran Grossly Intact
Cranial Nerve II: Right Eye: Pupillary Size Unremarkable and Visual Ramachandran Grossly Intact
Cranial Nerves III, IV, : Extraocular Movement: Grossly Intact
Cranial Nerve VII: Facial Symmetry: Normal Facial Symmetry
Cranial Nerve VIII: Hearing: Unremarkable Hearing to Normal Conversational Volume
Cranial Nerve XI: Shoulder Shrug: Unremarkable
Muscle Strength, Overall: Reduced Bilaterally (In upper extremities right weaker than left 4- out of 5 approximately and on the left 4 out of 5 proximally with full left hand strength, right hand strength limited by immobility of fourth and fifth
fingers) and Other (Full in right lower extremity)
Muscle Bulk & Tone: Bulk Unremarkable and Tone Unremarkable
Pronator Drift: No Drift in Upper Extremities
Deep Tendon Reflexes: Other (Intact in bilateral upper extremities without hyperreflexia)
Touch Sensation: Unremarkable
Coordination: Unable to Assess
Gait & Station: Unable to Assess
Data Reviewed
-
Labs: Ordered and Report Reviewed
Reviewed with: Physician, Nurse and Patient
Old Records: Summarized
Past History
Past History
ED Past Medical History: Arrthythmia (Atrial fib), CAD, CHF, GERD, HTN, Hypercholesterolemia, NIDDM, [place], Psychiatric (Anxiety, ) and Other (Arthritis, ulcerative colitis, chronic renal insufficiency, GI bleed, Back pain, Dizziness, Subdural
hematoma, IBS, Anemia. Thrombocytopenia, )
ED Past Surgical History: Cardiac (Pacemaker, Bypass, Stents), Orthopedic (Bilateral ankle surgery. Left AKA, Left hip replacement, ), Tonsilectomy and Other (catracts, )
Patient has exhibited threatening behavior?: No
Social History
Tobacco: Non-smoker
Alcohol: None
Drug: None
Personal:
Living: care home ([facility])
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
Family History
Family History: Other (Reviewed and noncontributory)
Medications
-
Medications:
Generic Name Dose Route Start Last Admin
Trade Name Freq PRN Reason Stop Dose Admin
Acetaminophen 650 mg 05/04/24 19:51 05/11/24 05:47
Acetaminophen 325 Mg Tablet PO 06/01/24 19:50 650 mg
Q4HPRN PRN Administration
mild pain/fever>100.4
Albuterol/Ipratropium 3 ml 05/04/24 19:51 05/08/24 09:58
Ipratropium 0.5/Albuterol 3 Mg (3 Ml Ampul) INH 3 ml
R Q6HPRN PRN Administration
cough
Protocol
Albuterol/Ipratropium 3 ml 05/06/24 20:00 05/11/24 07:38
Ipratropium 0.5/Albuterol 3 Mg (3 Ml Ampul) INH 3 ml
R BID CIPRIANO Administration
Protocol
Amiodarone HCl 200 mg 05/05/24 08:00 05/11/24 09:08
Amiodarone 200 Mg Tablet PO 06/02/24 07:59 200 mg
DAILY CIPRIANO Administration
Apixaban 2.5 mg 05/04/24 20:00 05/11/24 09:07
Apixaban (Eliquis) 2.5 Mg Tablet PO 06/01/24 19:59 2.5 mg
BID CIPRIANO Administration
Aspirin 81 mg 05/05/24 08:00 05/11/24 09:07
Aspirin 81 Mg (Enteric Coated) Tablet PO 06/02/24 07:59 81 mg
DAILY CIPRIANO Administration
Atorvastatin Calcium 80 mg 05/04/24 22:00 05/10/24 21:32
Atorvastatin (Lipitor) 80 Mg Tablet PO 06/01/24 21:59 80 mg
HS CIPRIANO Administration
Bumetanide 1 mg 05/10/24 13:00 05/11/24 09:07
Bumetanide 1 Mg Tablet PO 06/07/24 12:59 1 mg
DAILY CIPRIANO Administration
Carvedilol 3.125 mg 05/05/24 10:00 05/11/24 09:07
Carvedilol 3.125 Mg Tablet PO 06/02/24 09:59 Not Given
BID CIPRIANO
Ceftriaxone Sodium 2,000 mg 05/06/24 10:00 05/11/24 09:09
Ceftriaxone 2,000 Mg/20 Ml Vial IV 2,000 mg
Q24H CIPRIANO Administration
Cholestyramine Resin 4 gram 05/07/24 08:00 05/11/24 09:08
Cholestyramine 4 Gram Packet PO 06/04/24 07:59 4 gram
DAILY CIPRIANO Administration
Dextrose 12.5 grams 05/04/24 16:43
Dextrose 50% (0.5 Grams/Ml) 50 Ml Syringe IV 06/01/24 16:42
[id number] PRN
hypoglycemia
Protocol
Fentanyl 1 patch 05/04/24 20:00 05/10/24 23:00
Fentanyl 25 Mcg/Hr Patch TRANSDERM 05/18/24 19:59 1 patch
Q72H CIPRIANO Administration
Folic Acid 1 tablet 05/07/24 08:00 05/11/24 09:08
Folbic (Same As Foltx) PO 06/04/24 07:59 1 tablet
DAILY CIPRIANO Administration
Glucagon 1 mg 05/04/24 16:43
Glucagon 1 Mg Vial IM 06/01/24 16:42
PRN PRN
hypoglycemia
Protocol
Hydromorphone HCl 0.25 mg 05/04/24 16:49 05/09/24 20:46
Hydromorphone 0.25 Mg/0.5 Ml Syringe IV 05/18/24 16:48 0.25 mg
Q4HPRN PRN Administration
Severe pain
Insulin Glargine 5 units/ 0.05 mls @ 0 mls/hr 05/06/24 20:30 05/10/24 20:40
Device SC 06/03/24 20:29 0.05 mls
DAILY@2030 CIPRIANO Administration
As Directed
Insulin Aspart 0 units 05/05/24 07:30 05/11/24 16:34
Insulin Aspart Moderate Resistance 300 Units/3 Ml Pen.Injctr SC 06/02/24 07:29 Not Given
AC CIPRIANO
Protocol
Insulin Aspart 8 units 05/10/24 11:30 05/11/24 12:19
Insulin Aspart (100 Units/Ml) 3 Ml Flexpen SC 06/07/24 11:29 8 units
AC CIPRIANO Administration
Loperamide HCl 2 mg 05/06/24 19:51 05/09/24 10:42
Loperamide 2 Mg Capsule PO 06/03/24 19:50 2 mg
Q6HPRN PRN Administration
diarrhea
Methimazole 5 mg 05/11/24 11:00 05/11/24 11:34
Methimazole 5 Mg Tablet PO 06/08/24 10:59 5 mg
DAILY CIPRIANO Administration
Metoprolol Tartrate 5 mg 05/04/24 16:44
Metoprolol 5 Mg/5 Ml Vial IV 06/01/24 16:43
Q6HPRN PRN
HR>120
Miconazole Nitrate 0 applic 05/05/24 11:03
Miconazole Powder Bottle TOPICAL 06/02/24 11:02
BIDPRN PRN
yeasty red skin
Nystatin 5 ml 05/09/24 22:00 05/11/24 12:18
Nystatin Oral Suspension 500,000 Units/5 Ml PO 06/06/24 21:59 5 ml
QID CIPRIANO Administration
Pantoprazole Sodium 20 mg 05/05/24 08:00 05/11/24 09:08
Pantoprazole 20 Mg Delayed Release Tablet PO 06/02/24 07:59 20 mg
DAILY CIPRIANO Administration
Patch Removal 0 patch 05/10/24 20:00 05/10/24 23:00
Remove Fentanyl Patch REMOVE 05/24/24 19:59 1 patch
Q72H CIPRIANO Administration
Sodium Chloride 0 flush 05/04/24 20:00
Sodium Chloride 0.9% (Flush) Syringe IV 06/01/24 19:59
PER PROTOCOL CIPRIANO
Sodium Chloride 0 flush 05/06/24 10:00 05/11/24 09:40
0.9% Nacl Flush If Lactated Ringers Ivf Ordered IV 06/03/24 09:59 Not Given
BID@1000,1030 CIPRIANO
Sterile Water 20 ml 05/06/24 10:00 05/11/24 09:09
Sterile Water For Injection 20 Ml Vial IV 06/03/24 09:59 20 ml
Q24H CIPRIANO Administration
Vancomycin HCl 125 mg 05/09/24 18:00 05/11/24 11:34
Vancomycin Oral Solution 50 Mg/Ml In Oral Syringe PO 125 mg
Q6 CIPRIANO Administration
[2024-05-11] MEDS: SOLU-MEDROL 258 MG IV (17:44)
[2024-05-11 18:03] LABS: Creatine Phosphokinase 22 U/L (55-170)
[2024-05-11 19:00] VITALS: BP 138/56
[2024-05-11] MEDS: LANTUS 0.05 UNITS SC (19:58)
[2024-05-11] MEDS: COREG 3.125 MG PO (19:59)
[2024-05-11 22:03] LABS: Glucose - Point of Care 171 mg/dl (70-99)
[2024-05-11 23:00] VITALS: BP 117/57
[2024-05-11] MEDS: LIPITOR 80 MG PO (23:02)
[2024-05-12 03:15] VITALS: BP 122/52
[2024-05-12] MEDS: FIRVANQ 125 MG PO ×3 (05:22→18:17)
[2024-05-12 06:00] VITALS: BMI 29.9
[2024-05-12 07:24] LABS: Glucose - Point of Care 213 mg/dl (70-99)
[2024-05-12 07:38] VITALS: BP 107/46
[2024-05-12 08:04] LABS: Hematocrit 24.5 % (39.0-52.0); Hemoglobin 8.4 g/dL (13.0-18.0); Mean Corp Hgb Conc. 34.3 g/dL (33.0-37.0); Mean Corpuscular Hgb 24.9 pg (27.0-31.0); Mean Corpuscular Volume 72.5 fL (80.0-94.0); Platelet Count 138 10^3/uL (130-400); Red Blood Cell Count 3.38 10^6/uL (4.70-6.10); Red Cell Dist. Width 19.7 % (11.5-14.5); White Blood Cell Count 6.9 10^3/uL (4.8-10.8)
--- NOTE | 2024-05-12 08:14 | W.PN.NEURO.1 ---
Today's Communication / Plan
-
Started high dose methylprednisolone (1 g IV) x 5 days, day 1 was 05/11/2024
Check acetylcholine receptor antibodies
Repetitive stimulation EMG
Neuro Assessment/Plan
Assessment
Mr. Garcia endorses ongoing proximal arm weakness with new bilateral action hand tremor (not significant subsequently)
Acute bilateral upper paraparesis. MRI of the brain eliminated the etiology of watershed infarcts. MRI of cervical spine demonstrated spinal cord narrowing without critical narrowing or changes in the cord.
With CPK low, less likely myositis.
The discomfort that the patient is experiencing is not consistent typically with either myasthenia gravis or Lambert-Eaton myasthenic syndrome. However both must be considered instead of myositis
Plan
Started high dose methylprednisolone (1 g IV) x 5 days, day 1 was 05/11/2024
Resumed aspirin 81 mg QD
Continue apixaban due to history of atrial fibrillation
Check acetylcholine receptor antibodies
Repetitive stimulation EMG to evaluate for possible myasthenia gravis or Lambert-Eaton myasthenic syndrome
Appreciate assistance from infectious disease and neurosurgery
Will follow pending results
Subjective/Objective
Subjective Data
Date of Service: May 12, 2024
Objective Data
Vital Signs
Temp Pulse Resp BP Pulse Ox
36.5 C 62 16 122/52 95
05/12/24 03:15 05/12/24 03:15 05/12/24 03:15 05/12/24 03:15 05/12/24 03:15
Lab Results
05/12/24 07:05
Sodium 134 mmol/L (135-145) L 05/11/24 07:20
Potassium 3.7 mmol/L (3.5-5.1) 05/11/24 07:20
BUN 78 mg/dl (9-20) H 05/11/24 07:20
Glucose 105 mg/dl (70-99) H 05/11/24 07:20
Calcium 8.9 mg/dl (8.4-10.2) 05/11/24 07:20
Vitamin B12 > 1000 pg/ml (239-931) H 05/09/24 04:48
Patient Allergies
Sulfa (Sulfonamide Antibiotics) Allergy (Verified 05/04/24 14:45)
Hives
sulfasalazine Allergy (Verified 05/04/24 14:45)
mother states hives
Review of Systems
-
History Source: Patient
All other systems: Reviewed and negative
Musculoskeletal: Negative Back Pain or Neck Pain
Neuro: Weakness; Negative Headache
Physical Exam
-
General: No Apparent Distress and Appears Stated Age
Eyes: Round OU, [place] Conjunctivae and No Ptosis
HEENT: Anicteric and Moist Mucous Membranes
Neck: Full Range of Motion
Respiratory: No Dyspnea
Cardiac: No JVD
GI: Non-distended
Skin: Unremarkable
Extremities: No Clubbing, No Cyanosis, No Edema and Other (Left BKA)
Psych: Intact Judgement/Insight
Extended Neurological Exam
Mood & Affect: Mood Unremarkable and Affect Unremarkable
Attention Span & Concentration: Awake, Alert, Interactive and No Difficulty with 2 Step Request
Memory: Unremarkable
Tremor: Hand Tremor Absent and Head Tremor Absent
Speech: Quality Unremarkable and Quantity Unremarkable
Cranial Nerve II: Left Eye: Pupillary Size Unremarkable and Visual Ramachandran Grossly Intact
Cranial Nerve II: Right Eye: Pupillary Size Unremarkable and Visual Ramachandran Grossly Intact
Cranial Nerves III, IV, : Extraocular Movement: Grossly Intact
Cranial Nerve VII: Facial Symmetry: Normal Facial Symmetry
Cranial Nerve VIII: Hearing: Unremarkable Hearing to Normal Conversational Volume
Cranial Nerve XI: Shoulder Shrug: Unremarkable
Muscle Strength, Overall: Reduced Bilaterally (In upper extremities right weaker than left 4- out of 5 approximately, left 4 out of 5 proximally with full left hand strength, right hand strength limited by immobility of fourth and fifth fingers) and
Other (Full in right lower extremity)
Muscle Bulk & Tone: Bulk Unremarkable and Tone Unremarkable
Pronator Drift: Unable to Assess
Touch Sensation: Unremarkable
Coordination: Unable to Assess
Gait & Station: Unable to Assess
Data Reviewed
-
Labs: Report Reviewed
EMG: Ordered
Reviewed with: Patient
Old Records: Summarized
Past History
Past History
ED Past Medical History: Arrthythmia (Atrial fib), CAD, CHF, GERD, HTN, Hypercholesterolemia, NIDDM, [place], Psychiatric (Anxiety, ) and Other (Arthritis, ulcerative colitis, chronic renal insufficiency, GI bleed, Back pain, Dizziness, Subdural
hematoma, IBS, Anemia. Thrombocytopenia)
ED Past Surgical History: Cardiac (Pacemaker, Bypass, Stents), Orthopedic (Bilateral ankle surgery. Left AKA, Left hip replacement, ), Tonsilectomy and Other (catracts, )
Patient has exhibited threatening behavior?: No
Social History
Tobacco: Non-smoker
Alcohol: None
Drug: None
Personal:
Living: group home ([facility])
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
Family History
Family History: Other (Reviewed and noncontributory)
Medications
-
Medications:
Generic Name Dose Route Start Last Admin
Trade Name Freq PRN Reason Stop Dose Admin
Acetaminophen 650 mg 05/04/24 19:51 05/11/24 05:47
Acetaminophen 325 Mg Tablet PO 06/01/24 19:50 650 mg
Q4HPRN PRN Administration
mild pain/fever>100.4
Albuterol/Ipratropium 3 ml 05/04/24 19:51 05/08/24 09:58
Ipratropium 0.5/Albuterol 3 Mg (3 Ml Ampul) INH 3 ml
R Q6HPRN PRN Administration
cough
Protocol
Albuterol/Ipratropium 3 ml 05/06/24 20:00 05/11/24 19:40
Ipratropium 0.5/Albuterol 3 Mg (3 Ml Ampul) INH 3 ml
R BID CIPRIANO Administration
Protocol
Amiodarone HCl 200 mg 05/05/24 08:00 05/11/24 09:08
Amiodarone 200 Mg Tablet PO 06/02/24 07:59 200 mg
DAILY CIPRIANO Administration
Apixaban 2.5 mg 05/04/24 20:00 05/11/24 19:59
Apixaban (Eliquis) 2.5 Mg Tablet PO 06/01/24 19:59 2.5 mg
BID CIPRIANO Administration
Aspirin 81 mg 05/05/24 08:00 05/11/24 09:07
Aspirin 81 Mg (Enteric Coated) Tablet PO 06/02/24 07:59 81 mg
DAILY CIPRIANO Administration
Atorvastatin Calcium 80 mg 05/04/24 22:00 05/11/24 23:02
Atorvastatin (Lipitor) 80 Mg Tablet PO 06/01/24 21:59 80 mg
HS CIPRIANO Administration
Bumetanide 1 mg 05/10/24 13:00 05/11/24 09:07
Bumetanide 1 Mg Tablet PO 06/07/24 12:59 1 mg
DAILY CIPRIANO Administration
Carvedilol 3.125 mg 05/05/24 10:00 05/11/24 19:59
Carvedilol 3.125 Mg Tablet PO 06/02/24 09:59 3.125 mg
BID CIPRIANO Administration
Ceftriaxone Sodium 2,000 mg 05/06/24 10:00 05/11/24 09:09
Ceftriaxone 2,000 Mg/20 Ml Vial IV 2,000 mg
Q24H CIPRIANO Administration
Cholestyramine Resin 4 gram 05/07/24 08:00 05/11/24 09:08
Cholestyramine 4 Gram Packet PO 06/04/24 07:59 4 gram
DAILY CIPRIANO Administration
Dextrose 12.5 grams 05/04/24 16:43
Dextrose 50% (0.5 Grams/Ml) 50 Ml Syringe IV 06/01/24 16:42
[id number] PRN
hypoglycemia
Protocol
Fentanyl 1 patch 05/04/24 20:00 05/10/24 23:00
Fentanyl 25 Mcg/Hr Patch TRANSDERM 05/18/24 19:59 1 patch
Q72H CIPRIANO Administration
Folic Acid 1 tablet 05/07/24 08:00 05/11/24 09:08
Folbic (Same As Foltx) PO 06/04/24 07:59 1 tablet
DAILY CIPRIANO Administration
Glucagon 1 mg 05/04/24 16:43
Glucagon 1 Mg Vial IM 06/01/24 16:42
PRN PRN
hypoglycemia
Protocol
Hydromorphone HCl 0.25 mg 05/04/24 16:49 05/09/24 20:46
Hydromorphone 0.25 Mg/0.5 Ml Syringe IV 05/18/24 16:48 0.25 mg
Q4HPRN PRN Administration
Severe pain
Insulin Glargine 5 units/ 0.05 mls @ 0 mls/hr 05/06/24 20:30 05/11/24 19:58
Device SC 06/03/24 20:29 0.05 mls
DAILY@2030 CIPRIANO Administration
As Directed
Methylprednisolone Sodium 258 mls @ 258 mls/hr 05/11/24 18:00 05/11/24 17:44
Succinate 1,000 mg/ Sodium IV 05/15/24 18:59 258 mls
Chloride Q24H CIPRIANO Administration
Insulin Aspart 0 units 05/05/24 07:30 05/11/24 16:34
Insulin Aspart Moderate Resistance 300 Units/3 Ml Pen.Injctr SC 06/02/24 07:29 Not Given
AC CIPRIANO
Protocol
Insulin Aspart 8 units 05/10/24 11:30 05/11/24 17:19
Insulin Aspart (100 Units/Ml) 3 Ml Flexpen SC 06/07/24 11:29 8 units
AC CIPRIANO Administration
Loperamide HCl 2 mg 05/06/24 19:51 05/09/24 10:42
Loperamide 2 Mg Capsule PO 06/03/24 19:50 2 mg
Q6HPRN PRN Administration
diarrhea
Methimazole 5 mg 05/11/24 11:00 05/11/24 11:34
Methimazole 5 Mg Tablet PO 06/08/24 10:59 5 mg
DAILY CIPRIANO Administration
Metoprolol Tartrate 5 mg 05/04/24 16:44
Metoprolol 5 Mg/5 Ml Vial IV 06/01/24 16:43
Q6HPRN PRN
HR>120
Miconazole Nitrate 0 applic 05/05/24 11:03
Miconazole Powder Bottle TOPICAL 06/02/24 11:02
BIDPRN PRN
yeasty red skin
Nystatin 5 ml 05/09/24 22:00 05/11/24 23:02
Nystatin Oral Suspension 500,000 Units/5 Ml PO 06/06/24 21:59 5 ml
QID CIPRIANO Administration
Pantoprazole Sodium 20 mg 05/05/24 08:00 05/11/24 09:08
Pantoprazole 20 Mg Delayed Release Tablet PO 06/02/24 07:59 20 mg
DAILY CIPRIANO Administration
Patch Removal 0 patch 05/10/24 20:00 05/10/24 23:00
Remove Fentanyl Patch REMOVE 05/24/24 19:59 1 patch
Q72H CIPRIANO Administration
Sodium Chloride 0 flush 05/04/24 20:00
Sodium Chloride 0.9% (Flush) Syringe IV 06/01/24 19:59
PER PROTOCOL CIPRIANO
Sodium Chloride 0 flush 05/06/24 10:00 05/11/24 09:40
0.9% Nacl Flush If Lactated Ringers Ivf Ordered IV 06/03/24 09:59 Not Given
BID@1000,1030 CIPRIANO
Sterile Water 20 ml 05/06/24 10:00 05/11/24 09:09
Sterile Water For Injection 20 Ml Vial IV 06/03/24 09:59 20 ml
Q24H CIPRIANO Administration
Vancomycin HCl 125 mg 05/09/24 18:00 05/12/24 05:22
Vancomycin Oral Solution 50 Mg/Ml In Oral Syringe PO 125 mg
Q6 CIPRIANO Administration
[2024-05-12] MEDS: DUONEB 3 ML INH ×2 (08:41→18:12)
[2024-05-12] MEDS: NOVOLOG FLEXPEN-MODERATE RESISTANCE 3 UNITS SC ×2 (09:10→12:07)
[2024-05-12] MEDS: NOVOLOG FLEXPEN 8 UNITS SC ×3 (09:10→16:39)
[2024-05-12] MEDS: QUESTRAN 4 GRAM PO (09:11)
[2024-05-12] MEDS: MYCOSTATIN ORAL SUSPENSION 5 ML PO ×3 (09:11→21:10)
[2024-05-12] MEDS: COREG 3.125 MG PO ×2 (09:11→21:09)
[2024-05-12] MEDS: PROTONIX 20 MG PO (09:11)
[2024-05-12] MEDS: ASPIR LOW (ENTERIC COATED) 81 MG PO (09:12)
[2024-05-12] MEDS: ELIQUIS 2.5 MG PO (09:12)
[2024-05-12] MEDS: FOLTX 1 TABLET PO (09:12)
[2024-05-12] MEDS: BUMEX 1 MG PO (09:12)
[2024-05-12] MEDS: TAPAZOLE 5 MG PO (09:12)
[2024-05-12] MEDS: PACERONE 200 MG PO (09:13)
[2024-05-12] MEDS: FLUSH (NSS) IV ×2 (09:13→09:14)
[2024-05-12] MEDS: ROCEPHIN 2000 MG IV (09:14)
[2024-05-12] MEDS: STERILE WATER FOR INJECTION 20 ML IV (09:14)
[2024-05-12 09:42] LABS: ALT (SGPT) 47 U/L (0-50); AST (SGOT) 42 U/L (17-59); Albumin 2.6 g/dl (3.5-5.0); Alkaline Phosphatase 143 U/L (38-126); Blood Urea Nitrogen 82 mg/dl (9-20); Calcium 8.9 mg/dl (8.4-10.2); Carbon Dioxide 20 mmol/L (22-30); Chloride 101 mmol/L (98-107); Creatine Phosphokinase < 20 U/L (55-170); Direct Bilirubin 0.8 mg/dl (0.0-0.4); Estimated Creatinine Clearance 29 ml/min; Glucose 222 mg/dl (70-99); Magnesium 1.9 mg/dl (1.6-2.3); Sodium 133 mmol/L (135-145); Total Bilirubin 1.3 mg/dl (0.2-1.3); Total Protein 5.8 g/dl (6.3-8.2)
--- NOTE | 2024-05-12 09:42 | W.PN.HOSP.TC ---
Today's Communication/Plan
-
see A/P
Assessment / Plan
Assessment / Plan
A/P:
# Sepsis with Strep Bacteremia, unclear source
Continue IV ceftriaxone 2 g daily likely 6 week course
Cervical MRI no�spinal epidural abscess. Transthoracic echo no vegetations.
TTE unrevealing, ID request ZACHARY since pt has PPM , ZACHARY planned for Sunday 05/13
Cespedes catheter exchanged this admission
No evidence of cholecystitis clinically.
ID on board
# C. diff colitis
started PO vancomycin
ID on board
# Upper extremity weakness likely related to cervical stenosis
Appreciated neurology and neurosurgery consults
MRI cervical spine noted significant spinal stenosis. MRI brain unrevealing. Carotid Doppler US noted BL calcified vessels, but less than 50% bilateral internal carotid artery stenosis.
Continue aspirin
PT OT note indicated that pt is non-ambulatory at baseline, so no skilled PT warranted
Started high dose methylprednisolone (1 g IV) x 5 days per neuro for ?myositis
CPK noted to be negative
EMG to evaluate for possible myositis
# Suspect hyperthyroidism
TSH < 0.02, FT4 at 7.70
Could arm weakness be related to hyperthyroidism?
started empiric methimazole 5 mg, continue
recc outpt TFT in 4-6 weeks, informed
# LENI on CKD 3
# suspect prerenal LENI with low BPs vs infection
Creatinine 2.0 from 1.3 on admission.
Avoid nephrotoxic
Bumex per renal
Nephrology on board
# Hypokalemia, resolved
# Anemia
Continue to monitor hemoglobin closely
# Elevated LFTs, resolved
Resumed Lipitor 80 mg
# Hematuria, Resolved. Likely due to traumatic Cespedes catheter exchange and also underlying use of Eliquis
Resumed Eliquis 2.5 BID and aspirin
Monitor hemoglobin
# Hypotension, Improved
Off IV fluids
# Paroxysmal atrial fibrillation:
On rate control carvedilol 3.125 mg twice a day with holding parameters
IV Lopressor as needed
Continue antiarrhythmic amiodarone 200 mg daily
Continue anticoagulation, Eliquis 2.5 mg twice a day
# Diabetes mellitus type 2:
Resume home long-acting Lantus 5 units HS and short acting insulin 5 units AC
Continue insulin sliding scale
# Hyperlipidemia:
Resume statins
# Chronic HFpEF:
Bumex per renal
Monitor volume status
# CAD/PVD/CVA:
Continue anti-ischemic regimen
# Chronic pain syndrome/spinal stenosis/chronic narcotics dependence:
Continue fentanyl patch
IV Dilaudid as needed
# History of ulcerative colitis/GERD/GI bleed:
Monitor GI symptoms
# Thrombocytopenia has resolved
DVT prophylaxis: Eliquis 2.5 mg twice a day, hold for ZACHARY
CODE STATUS: Full code
total time spent 51 min
Anticipated Discharge: > 48 hours
Subjective/Interval History
-
Date of Service: May 12, 2024
Objective Data
-
Labs:
Laboratory Results
05/12/24 05/12/24 05/12/24
07:05 07:06 08:56
WBC 6.9
Hgb 8.4 L
Hct 24.5 L
Plt Count 138
Sodium Cancelled 133 L
Potassium Cancelled 4.0
Chloride Cancelled 101
Carbon Dioxide Cancelled 20 L
BUN Cancelled 82 H
Creatinine Cancelled 2.0 H
Glucose Cancelled 222 H
Calcium Cancelled 8.9
Total Bilirubin Cancelled 1.3
AST Cancelled 42
ALT Cancelled 47
Alkaline Phosphatase Cancelled 143 H
Vital Signs:
Vital Signs
Temp Pulse Resp BP Pulse Ox
36.6 C 61 16 107/46 95
05/12/24 07:38 05/12/24 09:11 05/12/24 08:44 05/12/24 09:11 05/12/24 08:44
I&O
05/11/24 05/12/24 05/13/24
06:59 06:59 06:59
Intake Total 480 / 480 918 / 918
Output Total 1650 / 1650 425 / 425
Balance -1170 / -1170 493 / 493
Review of Systems
-
Neuro: Reports Weakness (BL upper extremities , slightly improved on L side )
Physical Exam
-
General: Well Developed, Comfortable, Conversant and Appears Chronically Ill
HEENT: Hearing Impaired
Respiratory: Clear to Auscultation and Non Labored Respirations; Negative Accessory Resp Muscle Use
Cardiac: Regular Rhythm and S1/S2
GI: Soft and Nontender
Genito-urinary: Cespedes; Negative Continuous Bladder Irrigation
Musculoskeletal: Other (Left AKA)
Skin: Other (see wound care note )
Neuro: Awake and Alert
Psych: Calm and Intact Judgement/Insight (somewhat)
Data Reviewed
-
MRI: Report Reviewed by me
Labs: Labs Reviewed by me
[2024-05-12 11:15] VITALS: BP 107/48
[2024-05-12 11:26] LABS: Glucose - Point of Care 246 mg/dl (70-99)
[2024-05-12] MEDS: MYCOSTATIN ORAL SUSPENSION PO (13:53)
--- NOTE | 2024-05-12 14:28 | W.PN.NEPH.PH ---
Today's Communication / Plan
-
cont bumex, likely extra dose
Assessment/Plan
-
Assessment:
Sepsis with Strept Bacteremia
Upper extremity weakness
Hematuria:? Traumatic Zaragoza catheter exchange and also underlying use of Eliquis
Hypotension
LENI on CKD-baseline cr 1-1.3
hypokalemia
Abnormal thyroid test
Anemia
Acute on Chronic thrombocytopenia
Paroxysmal atrial fibrillation
Diabetes mellitus type 2
Hyperlipidemia
Chronic HFpEF
CAD/PVD/CVA
Chronic pain syndrome/spinal stenosis/chronic narcotics dependence
History of ulcerative colitis/GERD/GI bleed
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
CAD/DC/CABG 2009
Chronic LBBB
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
Chronic right lower extremity lymphedema
Hx CVA per CT head
Hx subdural hematoma after mechanical fall
Hx orthostatic hypotension/HTN
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
Chronic pain syndrome secondary to spinal stenosis on chronic opiate patch
GERD/Hx GI bleed
Hx ulcerative colitis- azathioprine
Anxiety
Chronic ambulatory dysfunction with chronic foot and ankle deformities
Hypoalbuminemia
Plan:
A/w UE weakness, sepsis and group C bacteremia
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
weights up and he is on RA
would cont bumex 1mg daily(home 0.5mg), may add additional dose if needed
microhematuria with zaragoza, neg U eosinophil
CT on admit with out hydronephrosis
echo noted EF 40-45%
bp are soft, coreg with holding parameters,
thrombocytopenia-chronic was seen by heme before
dose meds renally, abx per ID
started on pulse steroid 5 per neuro
TSH low and high FT4 on Amiodarone-defer to primary-methimazole started
avoid nephrotoxins
follow h/h , hb at 8.4 better
monitor met acidosis
follow labs
-
-
Date of Service: May 12, 2024
CC / HPI / ROS
-
Chief Complaint:
LENI
History of Present Illness:
Creatinine up to 2, na low 133
Hemodynamically soft BPs
wt is up, on RA
non oliguric with zaragoza
Review of Systems:
no sob at rest
no n/v
left UE weakness slightly better post steroid
no fevers
Labs
-
Labs:
WBC 6.9 10^3/uL (4.8-10.8) 05/12/24 07:05
RBC 3.38 10^6/uL (4.70-6.10) L 05/12/24 07:05
Hgb 8.4 g/dL (13.0-18.0) L 05/12/24 07:05
Hct 24.5 % (39.0-52.0) L 05/12/24 07:05
Plt Count 138 10^3/uL (130-400) 05/12/24 07:05
Sodium 133 mmol/L (135-145) L 05/12/24 08:56
Potassium 4.0 mmol/L (3.5-5.1) 05/12/24 08:56
Chloride 101 mmol/L (98-107) 05/12/24 08:56
Carbon Dioxide 20 mmol/L (22-30) L 05/12/24 08:56
BUN 82 mg/dl (9-20) H 05/12/24 08:56
Creatinine 2.0 mg/dL (0.7-1.3) H 05/12/24 08:56
eGFR 32.30 05/12/24 08:56
Glucose 222 mg/dl (70-99) H 05/12/24 08:56
Calcium 8.9 mg/dl (8.4-10.2) 05/12/24 08:56
Albumin 2.6 g/dl (3.5-5.0) L 05/12/24 08:56
Physical Exam
-
Vital Signs:
Vital Signs
Temp Pulse Resp BP Pulse Ox
98.4 F 61 18 107/48 95
05/12/24 11:15 05/12/24 11:15 05/12/24 11:15 05/12/24 11:15 05/12/24 12:35
Cardiovascular:: Regular rate and rhythm
Respiratory:: Bilateral: CTA (decreased)
Lung Excursion:: Normal
Abdomen:: Nontender and Soft
Extremity Edema:: None: Right:
Zaragoza Catheter: Yes
Other Findings::
left AKA
[2024-05-12] MEDS: BUMEX 0.5 MG PO (14:56)
[2024-05-12 15:46] VITALS: BP 118/63
[2024-05-12 16:03] LABS: Glucose - Point of Care 365 mg/dl (70-99)
[2024-05-12] MEDS: NOVOLOG FLEXPEN-MODERATE RESISTANCE 9 UNITS SC (16:37)
--- NOTE | 2024-05-12 18:06 | W.PN.CARDCBS ---
Today's Communication / Plan
-
Transesophageal echo in a.m.
Check proBNP and portable chest x-ray in a.m.
Bumex per nephrology
Impression / Plan
-
PCP: Dr. Shaquille Mata
Hospitality Services Manager: Dr. Bermudez
Impression:
Group C strep bacteremia
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
C. diff colitis
LENI on CKD 3
Hyperthyroidism, newly diagnosed
LENI on CKD, possibly immune complex related
Chronic HFpEF
Paroxysmal Afib
s/p CV in ER 08/01/20
s/p CV in ER 03/30/23Chronic Eliquis OAC
SSS, tachy-rufus
s/p Medtronic DC PPM 04/16/23Chronic LBBBh/o falls 08/2022 resulting in bruising and 11/2022 resulting in SDH
CAD
s/p CABG x5 in 2009
s/p LAD PCI 06/2014, cath showed SVG to diag sequential to OM1 seq to OM2 100% occluded
s/p PCI LCX EMELINA 08/02/20 complicated by small groin PSA treated with thrombin injection in IR 08/02/20severe spinal stenosis s/p radiofrequency ablationPAD
s/p L AKA 06/26/2023
s/p RLE arteriogram, lithotripsy, angioplasty, and wound debridement 11/21/2023HTNHLD
GERD
CKD
Ulcerative colitis
chronic thrombocytopenia
h/o GI bleed
DM-2
ECHO 08/02/20: EF 40-45%, basal to mid inferior and posterior lateral hypokinesis, mild concentric LVH, mild MAC, trace MR, mild aortic insufficiency, mild TR, PAP 36-41 mmHg
Echo 05/14/21: Ejection fraction 50-55%, mild MR
ECHO 04/16/23: EF 50%, hypokinesis of inferolateral wall, mild concentric LVH, mild MR, mild AR, mild TR, PAP 26 mmHg, trace HI
ECHO 05/05/23: Technically fair, EF 55%, biatrial enlargement, no significant valve disease, no pericardial effusion
Echo 05/06/2024: EF 40 to 45%, stage II diastolic dysfunction, mild MR, trace AI, moderate TR
Plan:
He is unchanged from a cardiac standpoint.
Plan on proceeding with transesophageal echo in a.m. Will need to check with Mounting Inspector if they are able to do patient with active C. difficile.
Dr. Bryant has no concerns regarding proceeding with transesophageal echo.
Evidence of volume overload, will defer to nephrology regarding diuretics. His weight is up 4.3 kg since admission.
Check proBNP. Last proBNP 4560 in February. Repeat chest x-ray in a.m.
Hemoglobin improved to 8.4.
HPI : Antoine is an 83-year-old male with past medical history of chronic HFpEF, paroxysmal atrial fibrillation, tachybradycardia status post permanent pacemaker, prior SDH, CAD status post CABG with subsequent PCI, spinal stenosis, PAD, hypertension,
hyperlipidemia, GERD, CKD, UC, thrombocytopenia, prior GI bleed, and DM 2. He presented to ER for evaluation of fever. Had also been having general malaise and lethargy over the past 2 days with significant upper extremity weakness. He was
febrile in ER with temperature of 101.8 with lactic acid of 2.1. He was admitted for further workup and management. He was started on IV antibiotics. Unclear source of infection. Blood cultures returned positive for strep. Also with evidence of
C. difficile colitis and started on vancomycin. Also noted to be hyperthyroid with TSH <0.02 with free T47.7. He had echocardiogram 05/06/2024 which was without evidence of endocarditis. Cardiology consulted now for consideration of ZACHARY given
strep bacteremia with unclear source. Patient continues to feel poorly and his main complaint is his upper extremity weakness.
Progress Note - Hospitality Services Manager
Subjective
Date of Service: May 12, 2024:
83-year-old medically very complex man admitted now with group C strep bacteremia and C. difficile enterocolitis. He has upper extremity weakness and neurology believes him to have man in the barrel syndrome possible the related to SAP ARIBA CONSULTANT ischemia in
a watershed distribution. Also found to be hyperthyroid at the present time. 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
transesophageal echo.
PMH: Chronic HFpEF, paroxysmal atrial fibrillation, Medtronic pacemaker April 2023, left bundle branch block, subdural hematoma, CABG in 2009, LAD PCI 2014, sequential SVG to [id number] occluded, circumflex PCI 2020, spinal stenosis, left
AKA, hypertension, hyperlipidemia, GERD, CKD, ulcerative colitis, thrombocytopenia, history of GI bleed, diabetes
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
Allergies: Sulfa
Outpatient cardiac meds: Amiodarone 200 mg a day, aspirin 81 mg a day, atorvastatin 80 mg a day, azathioprine 75 mg a day, bumetanide 0.5 mg daily, carvedilol 3.125 mg twice daily, cholestyramine, Eliquis 2.5 mg twice daily, fentanyl, insulin,
lactulose, metolazone? Lyrica, tamsulosin
Current meds: Amiodarone 200 mg a day, apixaban 2.5 mg twice daily, aspirin 81 mg a day, atorvastatin 80 mg at bedtime, fentanyl patch, carvedilol, ceftriaxone, folic acid, DuoNebs, cholestyramine, p.o. vancomycin, nystatin, insulin, Bumex 1 mg
daily, methimazole 5 mg a day, methylprednisolone 1000 mg IV every 24
118/63, pulse 61, respiratory rate 16, weight is 86.6 kg, chronically ill, left AKA, right leg very edematous wrapped, lungs with rales and decreased,JVD difficult to assess, probably elevated, possibly soft systolic murmur at apex
Hemoglobin 8 4, BUN and creatinine 82/2.0, was 1.3 on May 05, probably baseline, last proBNP was 4560 in February, weight is up 4.3 kg since admission
Objective
Labs:
05/12/24 07:05
05/12/24 08:56
Labs
Hgb 8.4 g/dL (13.0-18.0) L 05/12/24 07:05
Hct 24.5 % (39.0-52.0) L 05/12/24 07:05
Plt Count 138 10^3/uL (130-400) 05/12/24 07:05
Sodium 133 mmol/L (135-145) L 05/12/24 08:56
Potassium 4.0 mmol/L (3.5-5.1) 05/12/24 08:56
BUN 82 mg/dl (9-20) H 05/12/24 08:56
Creatinine 2.0 mg/dL (0.7-1.3) H 05/12/24 08:56
Glucose 222 mg/dl (70-99) H 05/12/24 08:56
Vital Signs and I&O:
Vital Signs
Temp Pulse Resp BP Pulse Ox
37.1 C 61 16 118/63 94
05/12/24 15:46 05/12/24 15:46 05/12/24 15:46 05/12/24 15:46 05/12/24 15:46
Vital Signs
Temp Pulse Resp BP Pulse Ox
37.1 C 61 16 118/63 94
05/12/24 15:46 05/12/24 15:46 05/12/24 15:46 05/12/24 15:46 05/12/24 15:46
Intake & Output
05/10/24 05/11/24 05/12/24 05/13/24
07:59 07:59 07:59 07:59
Intake Total 600 / 600 480 / 480 918 / 918
Output Total 900 / 900 1650 / 1650 425 / 425
Balance -300 / -300 -1170 / -1170 493 / 493
Physical Exam
Physical Exam
See above
[2024-05-12] MEDS: SOLU-MEDROL 258 MG IV (18:19)
[2024-05-12 19:35] VITALS: BP 117/62
[2024-05-12 21:09] LABS: Glucose - Point of Care 296 mg/dl (70-99)
[2024-05-12] MEDS: LANTUS 0.05 UNITS SC (21:10)
[2024-05-12] MEDS: LIPITOR 80 MG PO (21:10)
[2024-05-12 23:43] VITALS: BP 117/65
[2024-05-13] MEDS: FIRVANQ 125 MG PO ×4 (00:19→23:10)
[2024-05-13 03:13] VITALS: BP 114/56
[2024-05-13 05:44] LABS: Glucose - Point of Care 346 mg/dl (70-99)
[2024-05-13 06:00] VITALS: BMI 30.1
[2024-05-13] MEDS: FIRVANQ PO (06:00)
[2024-05-13] MEDS: NOVOLOG FLEXPEN-MODERATE RESISTANCE 7 UNITS SC ×2 (06:25→13:10)
[2024-05-13 07:00] VITALS: BP 108/48
[2024-05-13] MEDS: DUONEB 3 ML INH ×2 (07:38→19:16)
--- NOTE | 2024-05-13 07:54 | W.PN.NEURO.1 ---
Today's Communication / Plan
-
Started high dose methylprednisolone (1 g IV) x 5 days, day 1 was 05/11/2024
Check acetylcholine receptor antibodies
Repetitive stimulation EMG to evaluate for possible myasthenia gravis or Lambert-Eaton myasthenic syndrome
Neuro Assessment/Plan
Assessment
Mr. Garcia endorses ongoing proximal arm weakness with new bilateral action hand tremor (not significant subsequently)
Acute bilateral upper paraparesis. MRI of the brain eliminated the etiology of watershed infarcts. MRI of cervical spine demonstrated spinal cord narrowing without critical narrowing or changes in the cord.
With CPK low, less likely myositis.
The discomfort that the patient is experiencing is not consistent typically with either myasthenia gravis or Lambert-Eaton myasthenic syndrome. However both must be considered instead of myositis
Plan
Started high dose methylprednisolone (1 g IV) x 5 days, day 1 was 05/11/2024
Check acetylcholine receptor antibodies
Repetitive stimulation EMG to evaluate for possible myasthenia gravis or Lambert-Eaton myasthenic syndrome
Will follow pending results
Subjective/Objective
Subjective Data
Date of Service: May 13, 2024
RUE unchanged, LUE improved
Objective Data
Vital Signs
Temp Pulse Resp BP Pulse Ox
36.5 C 72 14 108/48 96
05/13/24 07:00 05/13/24 07:38 05/13/24 07:38 05/13/24 07:00 05/13/24 07:38
Sodium 133 mmol/L (135-145) L 05/12/24 08:56
Potassium 4.0 mmol/L (3.5-5.1) 05/12/24 08:56
BUN 82 mg/dl (9-20) H 05/12/24 08:56
Glucose 222 mg/dl (70-99) H 05/12/24 08:56
Calcium 8.9 mg/dl (8.4-10.2) 05/12/24 08:56
Vitamin B12 > 1000 pg/ml (239-931) H 05/09/24 04:48
Patient Allergies
Sulfa (Sulfonamide Antibiotics) Allergy (Verified 05/04/24 14:45)
Hives
sulfasalazine Allergy (Verified 05/04/24 14:45)
mother states hives
Review of Systems
-
History Source: Patient
All other systems: Reviewed and negative
Musculoskeletal: Negative Neck Pain
Physical Exam
-
General: No Apparent Distress and Appears Stated Age
Eyes: Round OU, [place] Conjunctivae and No Ptosis
HEENT: Anicteric and Moist Mucous Membranes
Neck: Full Range of Motion
Respiratory: No Dyspnea
Cardiac: No JVD
GI: Non-distended
Skin: Unremarkable
Extremities: No Clubbing, No Cyanosis, No Edema and Other (Left AKA)
Psych: Intact Judgement/Insight
Extended Neurological Exam
Mood & Affect: Mood Unremarkable and Affect Unremarkable
Attention Span & Concentration: Awake, Alert, Interactive and No Difficulty with 2 Step Request
Memory: Unremarkable
Tremor: Hand Tremor Absent and Head Tremor Absent
Speech: Quality Unremarkable and Quantity Unremarkable
Cranial Nerve II: Left Eye: Pupillary Size Unremarkable and Visual Ramachandran Grossly Intact
Cranial Nerve II: Right Eye: Pupillary Size Unremarkable and Visual Ramachandran Grossly Intact
Cranial Nerves III, IV, : Extraocular Movement: Grossly Intact
Cranial Nerve VII: Facial Symmetry: Normal Facial Symmetry
Cranial Nerve VIII: Hearing: Unremarkable Hearing to Normal Conversational Volume
Cranial Nerve XI: Shoulder Shrug: Unremarkable
Muscle Strength, Overall: Reduced Bilaterally (RUE weaker than left 4 out of 5 approximately, left 4+ out of 5 proximally with full left hand strength, right hand strength limited by immobility of fourth and fifth fingers) and Other (Full in right
lower extremity)
Muscle Bulk & Tone: Bulk Unremarkable and Tone Unremarkable
Pronator Drift: Unable to Assess (Due to inability to maintain arms off of bed for greater than 2 seconds)
Touch Sensation: Unremarkable
Coordination: Unable to Assess
Gait & Station: Unable to Assess
Data Reviewed
-
Labs: Report Reviewed
Reviewed with: Physician and Patient
Old Records: Summarized
Past History
Past History
ED Past Medical History: Arrthythmia (Atrial fib), CAD, CHF, GERD, HTN, Hypercholesterolemia, NIDDM, [place], Psychiatric (Anxiety, ) and Other (Arthritis, ulcerative colitis, chronic renal insufficiency, GI bleed, Back pain, Dizziness, Subdural
hematoma, IBS, Anemia. Thrombocytopenia)
ED Past Surgical History: Cardiac (Pacemaker, Bypass, Stents), Orthopedic (Bilateral ankle surgery. Left AKA, Left hip replacement, ), Tonsilectomy and Other (catracts, )
Patient has exhibited threatening behavior?: No
Social History
Tobacco: Non-smoker
Alcohol: None
Drug: None
Personal:
Living: long term ([facility])
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
Family History
Family History: Other (Reviewed and noncontributory)
Medications
-
Medications:
Generic Name Dose Route Start Last Admin
Trade Name Freq PRN Reason Stop Dose Admin
Acetaminophen 650 mg 05/04/24 19:51 05/11/24 05:47
Acetaminophen 325 Mg Tablet PO 06/01/24 19:50 650 mg
Q4HPRN PRN Administration
mild pain/fever>100.4
Albuterol/Ipratropium 3 ml 05/04/24 19:51 05/08/24 09:58
Ipratropium 0.5/Albuterol 3 Mg (3 Ml Ampul) INH 3 ml
R Q6HPRN PRN Administration
cough
Protocol
Albuterol/Ipratropium 3 ml 05/06/24 20:00 05/13/24 07:38
Ipratropium 0.5/Albuterol 3 Mg (3 Ml Ampul) INH 3 ml
R BID CIPRIANO Administration
Protocol
Amiodarone HCl 200 mg 05/05/24 08:00 05/12/24 09:13
Amiodarone 200 Mg Tablet PO 06/02/24 07:59 200 mg
DAILY CIPRIANO Administration
Apixaban 2.5 mg 05/04/24 20:00 05/12/24 09:12
Apixaban (Eliquis) 2.5 Mg Tablet PO 06/01/24 19:59 2.5 mg
BID CIPRIANO Administration
Aspirin 81 mg 05/05/24 08:00 05/12/24 09:12
Aspirin 81 Mg (Enteric Coated) Tablet PO 06/02/24 07:59 81 mg
DAILY CIPRIANO Administration
Atorvastatin Calcium 80 mg 05/04/24 22:00 05/12/24 21:10
Atorvastatin (Lipitor) 80 Mg Tablet PO 06/01/24 21:59 80 mg
HS CIPRIANO Administration
Bumetanide 1 mg 05/10/24 13:00 05/12/24 09:12
Bumetanide 1 Mg Tablet PO 06/07/24 12:59 1 mg
DAILY CIPRIANO Administration
Carvedilol 3.125 mg 05/05/24 10:00 05/12/24 21:09
Carvedilol 3.125 Mg Tablet PO 06/02/24 09:59 3.125 mg
BID CIPRIANO Administration
Ceftriaxone Sodium 2,000 mg 05/06/24 10:00 05/12/24 09:14
Ceftriaxone 2,000 Mg/20 Ml Vial IV 2,000 mg
Q24H CIPRIANO Administration
Cholestyramine Resin 4 gram 05/07/24 08:00 05/12/24 09:11
Cholestyramine 4 Gram Packet PO 06/04/24 07:59 4 gram
DAILY CIPRIANO Administration
Dextrose 12.5 grams 05/04/24 16:43
Dextrose 50% (0.5 Grams/Ml) 50 Ml Syringe IV 06/01/24 16:42
[id number] PRN
hypoglycemia
Protocol
Fentanyl 1 patch 05/04/24 20:00 05/10/24 23:00
Fentanyl 25 Mcg/Hr Patch TRANSDERM 05/18/24 19:59 1 patch
Q72H CIPRIANO Administration
Folic Acid 1 tablet 05/07/24 08:00 05/12/24 09:12
Folbic (Same As Foltx) PO 06/04/24 07:59 1 tablet
DAILY CIPRIANO Administration
Glucagon 1 mg 05/04/24 16:43
Glucagon 1 Mg Vial IM 06/01/24 16:42
PRN PRN
hypoglycemia
Protocol
Hydromorphone HCl 0.25 mg 05/04/24 16:49 05/09/24 20:46
Hydromorphone 0.25 Mg/0.5 Ml Syringe IV 05/18/24 16:48 0.25 mg
Q4HPRN PRN Administration
Severe pain
Insulin Glargine 5 units/ 0.05 mls @ 0 mls/hr 05/06/24 20:30 05/12/24 21:10
Device SC 06/03/24 20:29 0.05 mls
DAILY@2030 CIPRIANO Administration
As Directed
Methylprednisolone Sodium 258 mls @ 258 mls/hr 05/11/24 18:00 05/12/24 18:19
Succinate 1,000 mg/ Sodium IV 05/15/24 18:59 258 mls
Chloride Q24H CIPRIANO Administration
Insulin Aspart 8 units 05/10/24 11:30 05/12/24 16:39
Insulin Aspart (100 Units/Ml) 3 Ml Flexpen SC 06/07/24 11:29 8 units
AC CIPRIANO Administration
Insulin Aspart 0 units 05/13/24 06:00 05/13/24 06:25
Insulin Aspart Moderate Resistance 300 Units/3 Ml Pen.Injctr SC 06/10/24 05:59 7 units
Q6 CIPRIANO Administration
Protocol
Loperamide HCl 2 mg 05/06/24 19:51 05/09/24 10:42
Loperamide 2 Mg Capsule PO 06/03/24 19:50 2 mg
Q6HPRN PRN Administration
diarrhea
Methimazole 5 mg 05/11/24 11:00 05/12/24 09:12
Methimazole 5 Mg Tablet PO 06/08/24 10:59 5 mg
DAILY CIPRIANO Administration
Metoprolol Tartrate 5 mg 05/04/24 16:44
Metoprolol 5 Mg/5 Ml Vial IV 06/01/24 16:43
Q6HPRN PRN
HR>120
Miconazole Nitrate 0 applic 05/05/24 11:03
Miconazole Powder Bottle TOPICAL 06/02/24 11:02
BIDPRN PRN
yeasty red skin
Nystatin 5 ml 05/09/24 22:00 05/12/24 21:10
Nystatin Oral Suspension 500,000 Units/5 Ml PO 06/06/24 21:59 5 ml
QID CIPRIANO Administration
Pantoprazole Sodium 20 mg 05/05/24 08:00 05/12/24 09:11
Pantoprazole 20 Mg Delayed Release Tablet PO 06/02/24 07:59 20 mg
DAILY CIPRIANO Administration
Patch Removal 0 patch 05/10/24 20:00 05/10/24 23:00
Remove Fentanyl Patch REMOVE 05/24/24 19:59 1 patch
Q72H CIPRIANO Administration
Sodium Chloride 0 flush 05/04/24 20:00
Sodium Chloride 0.9% (Flush) Syringe IV 06/01/24 19:59
PER PROTOCOL CIPRIANO
Sodium Chloride 0 flush 05/06/24 10:00 05/12/24 09:14
0.9% Nacl Flush If Lactated Ringers Ivf Ordered IV 06/03/24 09:59 Not Given
BID@1000,1030 CIPRIANO
Sterile Water 20 ml 05/06/24 10:00 05/12/24 09:14
Sterile Water For Injection 20 Ml Vial IV 06/03/24 09:59 20 ml
Q24H CIPRIANO Administration
Vancomycin HCl 125 mg 05/09/24 18:00 05/13/24 06:00
Vancomycin Oral Solution 50 Mg/Ml In Oral Syringe PO Not Given
Q6 CIPRIANO
[2024-05-13] MEDS: PACERONE 200 MG PO (09:17)
[2024-05-13] MEDS: ASPIR LOW (ENTERIC COATED) 81 MG PO (09:17)
[2024-05-13] MEDS: COREG 3.125 MG PO (09:17)
[2024-05-13] MEDS: PROTONIX 20 MG PO (09:17)
[2024-05-13] MEDS: MYCOSTATIN ORAL SUSPENSION 5 ML PO ×4 (09:17→21:30)
[2024-05-13] MEDS: NOVOLOG FLEXPEN 8 UNITS SC ×3 (09:18→17:40)
[2024-05-13] MEDS: QUESTRAN 4 GRAM PO (09:18)
[2024-05-13] MEDS: BUMEX 1 MG PO (09:18)
[2024-05-13] MEDS: FOLTX 1 TABLET PO (09:18)
[2024-05-13] MEDS: TAPAZOLE 5 MG PO (09:18)
[2024-05-13 09:27] LABS: Glucose - Point of Care 352 mg/dl (70-99)
--- NOTE | 2024-05-13 10:06 | W.PN.HOSP.TC ---
Today's Communication/Plan
-
see A/P
Assessment / Plan
Assessment / Plan
A/P:
# Sepsis with Strep Bacteremia, unclear source
Continue IV ceftriaxone 2 g daily likely 6 week course
Cervical MRI no�spinal epidural abscess. Transthoracic echo no vegetations.
TTE unrevealing, ID request ZACHARY since pt has PPM , ZACHARY now planned for Wednesday 05/16
Cespedes catheter exchanged this admission
No evidence of cholecystitis clinically.
ID on board
# C. diff colitis
started PO vancomycin
ID on board
# Upper extremity weakness likely related to cervical stenosis vs ?myasthenia gravis, weakness has improved
Appreciated neurology and neurosurgery consults
MRI cervical spine noted significant spinal stenosis. MRI brain unrevealing. Carotid Doppler US noted BL calcified vessels, but less than 50% bilateral internal carotid artery stenosis.
Continue aspirin
PT OT note indicated that pt is non-ambulatory at baseline, so no skilled PT warranted
Started high dose methylprednisolone (1 g IV) x 5 days per neuro
CPK noted to be negative (which would r/o myositis)
Check Acetylcholine receptor antibodies per neuro
EMG per neuro
# Suspect hyperthyroidism
TSH < 0.02, FT4 at 7.70
Could arm weakness be related/contribute to hyperthyroidism?
started empiric methimazole 5 mg, continue
recc outpt TFT in 4-6 weeks, informed
# LENI on CKD 3
# suspect prerenal LENI with low BPs vs infection
Creatinine 2.0 from 1.3 on admission. Pending blood work today
Avoid nephrotoxic
Bumex per renal
Nephrology on board
# Hypokalemia, resolved
# Anemia
Continue to monitor hemoglobin closely
# Elevated LFTs, resolved
Resumed Lipitor 80 mg
# Hematuria, Resolved. Likely due to traumatic Cespedes catheter exchange and also underlying use of Eliquis
Resumed Eliquis 2.5 BID and aspirin
Monitor hemoglobin
# Hypotension, Improved
Off IV fluids
# Paroxysmal atrial fibrillation:
On rate control carvedilol 3.125 mg twice a day with holding parameters
IV Lopressor as needed
Continue antiarrhythmic amiodarone 200 mg daily
Continue anticoagulation, Eliquis 2.5 mg twice a day
# Diabetes mellitus type 2:
Resume home long-acting Lantus 5 units HS and short acting insulin 5 units AC
Continue insulin sliding scale
# Hyperlipidemia:
Resume statins
# Chronic HFpEF:
Bumex per renal
Monitor volume status
# CAD/PVD/CVA:
Continue anti-ischemic regimen
# Chronic pain syndrome/spinal stenosis/chronic narcotics dependence:
Continue fentanyl patch
IV Dilaudid as needed
# History of ulcerative colitis/GERD/GI bleed:
Monitor GI symptoms
# Thrombocytopenia has resolved
DVT prophylaxis: Eliquis 2.5 mg twice a day
CODE STATUS: Full code
DW Card, Neuro, ID
total time spent 51 min
Anticipated Discharge: > 48 hours
Subjective/Interval History
-
Date of Service: May 13, 2024
Objective Data
-
Labs:
Laboratory Results
05/13/24
06:00
WBC Pending
Hgb Pending
Hct Pending
Plt Count Pending
Sodium Pending
Potassium Pending
Chloride Pending
Carbon Dioxide Pending
BUN Pending
Creatinine Pending
Glucose Pending
Calcium Pending
Total Bilirubin Pending
AST Pending
ALT Pending
Alkaline Phosphatase Pending
Vital Signs:
Vital Signs
Temp Pulse Resp BP Pulse Ox
36.5 C 72 14 108/48 96
05/13/24 07:00 05/13/24 07:38 05/13/24 07:38 05/13/24 07:00 05/13/24 07:38
I&O
05/12/24 05/13/24 05/14/24
06:59 06:59 06:59
Intake Total 918 / 918 1058 / 1058
Output Total 425 / 425 900 / 900
Balance 493 / 493 158 / 158
Review of Systems
-
Neuro: Reports Weakness (BL upper extremities , slightly improved BL arms)
Physical Exam
-
General: Well Developed, Comfortable, Conversant and Appears Chronically Ill
HEENT: Hearing Impaired
Respiratory: Clear to Auscultation and Non Labored Respirations; Negative Accessory Resp Muscle Use
Cardiac: Regular Rhythm and S1/S2
GI: Soft and Nontender
Genito-urinary: Cespedes; Negative Continuous Bladder Irrigation
Musculoskeletal: Other (Left AKA)
Skin: Other (see wound care note )
Neuro: Awake, Alert and Other (BL arm weakness slightly improved )
Psych: Calm and Intact Judgement/Insight (somewhat)
Data Reviewed
-
MRI: Report Reviewed by me
Labs: Labs Reviewed by me
[2024-05-13 11:05] LABS: Hematocrit 23.2 % (39.0-52.0); Hemoglobin 7.9 g/dL (13.0-18.0); Mean Corp Hgb Conc. 34.1 g/dL (33.0-37.0); Mean Corpuscular Volume 70.5 fL (80.0-94.0); Platelet Count 154 10^3/uL (130-400); Red Blood Cell Count 3.29 10^6/uL (4.70-6.10); Red Cell Dist. Width 18.8 % (11.5-14.5); White Blood Cell Count 9.2 10^3/uL (4.8-10.8)
[2024-05-13 11:20] VITALS: BP 108/87
[2024-05-13 11:20] LABS: NT-proBNP 20800 pg/ml
--- NOTE | 2024-05-13 11:20 | W.PN.ID1 ---
Date of Service
Date of Service: May 13, 2024
Today's Communication
- Continue with ceftriaxone - 4 week course - 05/05- 06/01
- c/w enteral vanco - would extend the course to while on ceftriaxone. Enhanced contact precautions.
- oral vanc QID x2 weeks through 05/22; then taper to bid through the end of 06/01
Assessment / Plan
Bilateral Upper Extremity Weakness
- no osteo or epidural abscess seen on MRI imaging
- central canal stenosis
Group C Strep bacteremia
-Repeat blood cultures no growth
LENI
C. diff diarrhea
Hx Pacemaker
Chronic Thrombocytopenia
Dm2
- repeat blood cultures pending but show no growth to date
- 10/20 blood cultures 10 min apart both with group C strep
- TTE unrevealing, ZACHARY when feasible - scheduled for thursday
- steroids per neurology - pleased that he's improving
- stopped folvite - high levels of b6 can contribute to neuropathy though unlikely to be the primary cause of his weakness
- Continue with ceftriaxone - 4 week course - 05/05- 06/01
- c/w enteral vanco - would extend the course to while on ceftriaxone. Enhanced contact precautions.
- oral vanc QID x2 weeks through 05/22; then taper to bid through the end of 06/01
- will place PICC when approaching dc
- Follow white count & temperature curve.
����������������������������������������������������������
Chief Complaint
-: Bacteremia
Subjective / Review of Systems
afebrile
bp stable
stool loose/liquid
in good spirits
Vital Signs / Physical Exam
Vital Signs
Vital Signs
Temp Pulse Resp BP Pulse Ox
97.7 F 72 14 108/48 96
05/13/24 07:00 05/13/24 07:38 05/13/24 07:38 05/13/24 07:00 05/13/24 07:38
Physical Exam
Constitutional: No Acute Distress
Cardiovascular: Regular Rate and S1/S2; Negative Murmur or Rub
Pulmonary: Clear and Symmetric; Negative Wheezes or Rales
Gastrointestinal: Soft, Non Tender, Non Distended and Normal Bowel Sounds
Skin: Warm and Dry; Negative Rash or Jaundice
Objective Data
Lab Data
Lab Results
05/13/24 10:19
ESR 33 mm/hour (0-20) H 05/09/24 04:48
Estimated Creat Clear 29 ml/min 05/12/24 08:56
Lactic Acid Cancelled 05/05/24 06:23
Total Bilirubin 1.3 mg/dl (0.2-1.3) 05/12/24 08:56
AST 42 U/L (17-59) 05/12/24 08:56
ALT 47 U/L (0-50) 05/12/24 08:56
Alkaline Phosphatase 143 U/L (38-126) H 05/12/24 08:56
Most recent labs reviewed.
Micro Results:
05/06/24 15:42 Blood Culture - Final
Blood/Venous No Growth - Final Report
05/06/24 15:41 Blood Culture - Final
Blood/Venous No Growth - Final Report
05/09/24 12:17 Salmonella/Shigella Culture - Final
Feces/Stool No Salmonella, Shigella, Aeromonas or Plesiomonas species
isolated.
Campylobacter Culture - Final
No Campylobacter species isolated.
Shiga Toxin Test - Final
No E. coli Shiga Toxin 1 or 2 detected.
05/09/24 12:17 C. difficile GDH Antigen & Toxins - Final
Feces/Stool Toxigenic C.difficile Positive
- Final
Negative for Norovirus GI and GII.
05/04/24 15:12 Blood Culture - Final
Blood/Venous Group C Streptococcus
Gram Stain - Final
05/04/24 15:21 Blood Culture - Final
Blood/Venous Group C Streptococcus
Gram Stain - Final
05/04/24 15:12 Urine Culture - Final
Urine
05/04/24 20:10 MRSA Screen - Final
Nose No Methicillin Resistant Staphylococcus aureus isolated.
Imaging:
05/06/2024 MRI cervical spine: There is reversal of cervical lordosis. Multilevel degenerative disc disease is noted. No evidence of discitis or osteomyelitis. No epidural abscess noted.
05/06/2024 CT head without contrast: No acute intracranial abnormality noted. A small right mastoid effusion is seen.
05/04/2024 CT abdomen/pelvis without contrast: Cholelithiasis with gallbladder wall thickening and some very cholecystic fluid is noted, raising the possibility for acute cholecystitis. Splenomegaly is seen. There is mild urinary bladder wall
thickening with a Cespedes catheter in place. Please see full dictation for additional detail.
Cardiac Imaging:
05/06/2024 ECHO (TTE): Normal left ventricular size, with mildly reduced systolic function, EF approximately 40%. Stage II diastolic dysfunction is noted. Right ventricle is normal. Pacemaker wires noted in the right ventricle. There is severe
biatrial dilatation. There is mild mitral valve regurgitation. No intracardiac mass or thrombus formation is seen.
Care Review
Plan reviewed with: Nurse (maia)
[2024-05-13 11:24] LABS: ALT (SGPT) 44 U/L (0-50); AST (SGOT) 41 U/L (17-59); Albumin 2.8 g/dl (3.5-5.0); Alkaline Phosphatase 141 U/L (38-126); Blood Urea Nitrogen 93 mg/dl (9-20); Calcium 8.6 mg/dl (8.4-10.2); Carbon Dioxide 19 mmol/L (22-30); Chloride 100 mmol/L (98-107); Direct Bilirubin 0.7 mg/dl (0.0-0.4); Estimated Creatinine Clearance 28 ml/min; Glucose 328 mg/dl (70-99); Potassium 3.8 mmol/L (3.5-5.1); Sodium 133 mmol/L (135-145); Total Bilirubin 1.1 mg/dl (0.2-1.3); Total Protein 6.2 g/dl (6.3-8.2); eGFR 30.47
[2024-05-13] MEDS: STERILE WATER FOR INJECTION 20 ML IV (11:45)
[2024-05-13] MEDS: ROCEPHIN 2000 MG IV (11:45)
[2024-05-13] MEDS: FLUSH (NSS) IV ×2 (12:01)
--- NOTE | 2024-05-13 12:07 | W.PN.CARDCBS ---
Addendum entered and electronically signed by Shaquille Mata MD 05/13/24 16:42:
Transesophageal echo postponed until Thursday related to logistic issues with [employer].
Patient states he feels better. He thinks he may have a bit more movement in his arms.
Bumex has been increased to 1 mg IV twice daily.
PMH/PSH/FH/SH: Reviewed
Current medications: Amiodarone 200 mg a day, apixaban 2.5 mg twice daily, aspirin 81 mg a day, atorvastatin 80 mg a day, Duragesic patch, pantoprazole 20 mg a day, carvedilol 3.125 mg twice daily, ceftriaxone 2 g every 24 hours, insulin,
cholestyramine 4 g daily, vancomycin p.o., nystatin, insulin, methimazole, methylprednisolone 1000 mg daily x 5 days, Bumex 1 mg IV every 12 hours
111/47, pulse 62, respiratory 20, weight is 87 kg, if accurate up 0.4 kg, intake and output probably incomplete, chest x-ray today with some vascular congestion, cardiomegaly, low lung volumes, small effusions, neck veins up, regular rate and
rhythm, soft systolic murmur at apex, left AKA, marked edema with Tubigrip's and dressings in place right lower extremity overall, he does look brighter
Hemoglobin 7.9, had been 8.4, recent baseline around 8, sodium 133, creatinine 2.1, roughly stable and slightly above baseline, potassium 3.8, proBNP 20,800
Impression: See below
Plan:
Despite his multiple comorbidities, I agree he looks a little bit better in the setting of strep C bacteremia with concern for endovascular infection .
Continue supportive care. Agree with increase in bumetanide for volume overload with evidence of heart failure by chest x-ray, exam, and proBNP in the setting of LENI on CKD.
Will plan on transesophageal echo on Thursday looking for vegetation on pacer leads and evidence of endocarditis.
Blood pressure is marginal, would not uptitrate carvedilol. Given LENI on CKD avoid JEANINE/ARB, spironolactone etc. Hydralazine and nitrates could be considered but given blood pressure will hold off.
Original Note:
Today's Communication / Plan
-
consider for IV diuresis, will discuss with nephrology
follow Cr
consideration for eventual ZACHARY
treatment of infectious processes and B/L UE weakness per primary service/consultants
Impression / Plan
-
PCP: Dr. Shaquille Mata
Press Officer: Dr. Bermudez
Impression:
Group C strep bacteremia
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
C. diff colitis
LENI on CKD 3
Hyperthyroidism, newly diagnosed
LENI on CKD, possibly immune complex related
Chronic HFpEF
Paroxysmal Afib
s/p CV in ER 08/01/20
s/p CV in ER 03/30/23
Chronic Eliquis OAC
SSS, tachy-rufus
s/p Medtronic DC PPM 04/16/23
Chronic LBBB
h/o falls 08/2022 resulting in bruising and 11/2022 resulting in SDH
CAD
s/p CABG x5 in 2009
s/p LAD PCI 06/2014, cath showed SVG to diag sequential to OM1 seq to OM2 100% occluded
s/p PCI LCX EMELINA 08/02/20 complicated by small groin PSA treated with thrombin injection in IR 08/02/20
severe spinal stenosis s/p radiofrequency ablation
PAD
s/p L AKA 06/26/2023
s/p RLE arteriogram, lithotripsy, angioplasty, and wound debridement 11/21/2023
HTN
HLD
GERD
CKD
Ulcerative colitis
chronic thrombocytopenia
h/o GI bleed
DM-2
limited mobility status
ECHO 08/02/20: EF 40-45%, basal to mid inferior and posterior lateral hypokinesis, mild concentric LVH, mild MAC, trace MR, mild aortic insufficiency, mild TR, PAP 36-41 mmHg
Echo 05/14/21: Ejection fraction 50-55%, mild MR
ECHO 04/16/23: EF 50%, hypokinesis of inferolateral wall, mild concentric LVH, mild MR, mild AR, mild TR, PAP 26 mmHg, trace WA
ECHO 05/05/23: Technically fair, EF 55%, biatrial enlargement, no significant valve disease, no pericardial effusion
Echo 05/06/2024: EF 40 to 45%, stage II diastolic dysfunction, mild MR, trace AI, moderate TR
Plan:
-he feels well in terms of his breathing, however weight is up significantly from admission if accurate. Cr uptrending, 2.1 on 05/13. suspect he is in acute CHF. proBNP and CXR with evidence of acute CHF. currently on bumex 1mg daily, will
discuss transitioning to IV with nephrology today
-continue treatment of strep bacteremia. also with cdiff infection.
-he is being considered for ZACHARY to evaluate pacemaker leads in setting of bacteremia however given active cdiff will hold off for now. could consider for ZACHARY prior to DC if improving although does not appear to be ideal candidate for procedures
-in apaced rhythm on review of tele. continue amiodarone, coreg
-hgb 7.9 on eliquis 2.5mg BID and asa. appears ~ baseline. platelets improved
-work up of UE weakness per primary service
HPI : Antoine is an 83-year-old male with past medical history of chronic HFpEF, paroxysmal atrial fibrillation, tachybradycardia status post permanent pacemaker, prior SDH, CAD status post CABG with subsequent PCI, spinal stenosis, PAD, hypertension,
hyperlipidemia, GERD, CKD, UC, thrombocytopenia, prior GI bleed, and DM 2. He presented to ER for evaluation of fever. Had also been having general malaise and lethargy over the past 2 days with significant upper extremity weakness. He was
febrile in ER with temperature of 101.8 with lactic acid of 2.1. He was admitted for further workup and management. He was started on IV antibiotics. Unclear source of infection. Blood cultures returned positive for strep. Also with evidence of
C. difficile colitis and started on vancomycin. Also noted to be hyperthyroid with TSH <0.02 with free T47.7. He had echocardiogram 05/06/2024 which was without evidence of endocarditis. Cardiology consulted now for consideration of ZACHARY given
strep bacteremia with unclear source. Patient continues to feel poorly and his main complaint is his upper extremity weakness.
Progress Note - Press Officer
Subjective
Date of Service: May 13, 2024
no complaints reported by patient
Objective
Labs:
05/13/24 10:19
05/13/24 10:19
Labs
Hgb 7.9 g/dL (13.0-18.0) L 05/13/24 10:19
Hct 23.2 % (39.0-52.0) L 05/13/24 10:19
Plt Count 154 10^3/uL (130-400) 05/13/24 10:19
Sodium 133 mmol/L (135-145) L 05/13/24 10:19
Potassium 3.8 mmol/L (3.5-5.1) 05/13/24 10:19
BUN 93 mg/dl (9-20) H 05/13/24 10:19
Creatinine 2.1 mg/dL (0.7-1.3) H 05/13/24 10:19
Glucose 328 mg/dl (70-99) H 05/13/24 10:19
Vital Signs and I&O:
Vital Signs
Temp Pulse Resp BP Pulse Ox
97.7 F 72 14 108/48 96
05/13/24 07:00 05/13/24 07:38 05/13/24 07:38 05/13/24 07:00 05/13/24 07:38
Vital Signs
Temp Pulse Resp BP Pulse Ox
97.7 F 72 14 108/48 96
05/13/24 07:00 05/13/24 07:38 05/13/24 07:38 05/13/24 07:00 11/29/24 07:38
Intake & Output
05/11/24 05/12/24 05/13/24 05/14/24
07:59 07:59 07:59 07:59
Intake Total 480 / 480 918 / 918 1058 / 1058
Output Total 1650 / 1650 425 / 425 900 / 900
Balance -1170 / -1170 493 / 493 158 / 158
Physical Exam
Physical Exam
GEN: No distress, awake, alert, oriented x3. chronically ill appearing
HEENT: supple, anicteric, mmm, eomi
LUNGS: decreased BS B/L, no wheezes
CV: Reg, S1/S2, 1/6 syst LSB
ABD: soft, BS+, NT/ND
EXT: No cyanosis, clubbing. L AKA. 3+ edema of RLE
NEURO: Gross non-focal
SKIN: warm, pink, dry. No rash
: zaragoza
[2024-05-13 12:09] VITALS: BP 108/87
[2024-05-13 12:47] LABS: Glucose - Point of Care 334 mg/dl (70-99)
--- NOTE | 2024-05-13 12:49 | CM ---
manager human resources met with patient and spouse and son in room, patient's son expressed concerns that patient has been here for many days and still waiting on test per son patient has had test postponed again patient has a 15 day Medicaid bedhold after
that patient will have to private pay for bed and patient's son states that his parents cannot afford that, nursing made aware that testing needs to be completed.
Plan; To return to [facility] hopefully on Thursday after test.
[facility]
Report [phone]
[2024-05-13] MEDS: NOVOLOG FLEXPEN-MODERATE RESISTANCE SC (13:29)
--- NOTE | 2024-05-13 14:44 | W.PN.NEPH.PH ---
Today's Communication / Plan
-
change to IV bumex 1mg BID
Assessment/Plan
-
Assessment:
Sepsis with Strept Bacteremia
Upper extremity weakness
Hematuria:? Traumatic Zaragoza catheter exchange and also underlying use of Eliquis
Hypotension
LENI on CKD-baseline cr 1-1.3
hypokalemia
Abnormal thyroid test
Anemia
Acute on Chronic thrombocytopenia
Paroxysmal atrial fibrillation
Diabetes mellitus type 2
Hyperlipidemia
Chronic HFpEF
CAD/PVD/CVA
Chronic pain syndrome/spinal stenosis/chronic narcotics dependence
History of ulcerative colitis/GERD/GI bleed
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
CAD/[place]/CABG 2009
Chronic LBBB
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
Chronic right lower extremity lymphedema
Hx CVA per CT head
Hx subdural hematoma after mechanical fall
Hx orthostatic hypotension/HTN
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
Chronic pain syndrome secondary to spinal stenosis on chronic opiate patch
GERD/Hx GI bleed
Hx ulcerative colitis- azathioprine
Anxiety
Chronic ambulatory dysfunction with chronic foot and ankle deformities
Hypoalbuminemia
Plan:
A/w UE weakness, sepsis and group C bacteremia
creatinine up at 2.1,suspected ICGN (low c3 and ASO+ve) and cardiorenal
re check Fena, chr zaragoza and no sig diuresis
weights up, BNP up and CXR noted with pulm edema
would change to IV bumex 1mg now, may add additional dose if needed
microhematuria with zaragoza, neg U eosinophil
CT on admit with out hydronephrosis
echo noted EF 40-45%, eventual ZACHARY
bp are soft, coreg with holding parameters,
dose meds renally, abx per ID
on pulse steroid 3/5 per neuro
TSH low and high FT4 on Amiodarone--methimazole started
hyponatremia corrected for hyperglycemia
avoid nephrotoxins
follow h/h , hb at 7.9
monitor met acidosis
follow labs
d/w cards, pt
-
-
Date of Service: May 13, 2024
CC / HPI / ROS
-
Chief Complaint:
LENI
History of Present Illness:
Creatinine up to 2.1, na low 133 with hyperglycemia
Hemodynamically soft BPs
wt is up, on RA
barely non oliguric with zaragoza
Review of Systems:
no sob at rest
no n/v
left UE weakness slightly better post steroid
no fevers
Labs
-
Labs:
WBC 9.2 10^3/uL (4.8-10.8) 05/13/24 10:19
RBC 3.29 10^6/uL (4.70-6.10) L 05/13/24 10:19
Hgb 7.9 g/dL (13.0-18.0) L 05/13/24 10:19
Hct 23.2 % (39.0-52.0) L 05/13/24 10:19
Plt Count 154 10^3/uL (130-400) 05/13/24 10:19
Sodium 133 mmol/L (135-145) L 05/13/24 10:19
Potassium 3.8 mmol/L (3.5-5.1) 05/13/24 10:19
Chloride 100 mmol/L (98-107) 05/13/24 10:19
Carbon Dioxide 19 mmol/L (22-30) L 05/13/24 10:19
BUN 93 mg/dl (9-20) H 05/13/24 10:19
Creatinine 2.1 mg/dL (0.7-1.3) H 05/13/24 10:19
eGFR 30.47 05/13/24 10:19
Glucose 328 mg/dl (70-99) H 05/13/24 10:19
Calcium 8.6 mg/dl (8.4-10.2) 05/13/24 10:19
Vvx-T-Rttroynshcw Pept 87767 pg/ml 05/13/24 10:19
Albumin 2.8 g/dl (3.5-5.0) L 05/13/24 10:19
Physical Exam
-
Vital Signs:
Vital Signs
Temp Pulse Resp BP Pulse Ox
97.7 F 62 16 108/87 94
05/13/24 11:20 05/13/24 11:20 05/13/24 11:20 05/13/24 11:20 05/13/24 11:20
Cardiovascular:: Regular rate and rhythm
Respiratory:: Bilateral: CTA (decreased)
Lung Excursion:: Normal
Abdomen:: Nontender and Soft
Extremity Edema:: +3: Right:
Zaragoza Catheter: Yes
Other Findings::
left AKA
[2024-05-13 15:25] VITALS: BP 111/47
[2024-05-13] MEDS: BUMEX 1 MG IV ×2 (15:33→19:59)
[2024-05-13 16:44] LABS: Glucose - Point of Care 391 mg/dl (70-99)
[2024-05-13] MEDS: SOLU-MEDROL 258 MG IV (17:40)
[2024-05-13] MEDS: NOVOLOG FLEXPEN-MODERATE RESISTANCE 9 UNITS SC (17:40)
[2024-05-13] MEDS: DURAGESIC 25 MCG/HR PATCH 1 PATCH TRANSDERM (19:52)
[2024-05-13] MEDS: COREG PO (19:58)
[2024-05-13 19:59] VITALS: BP 100/56
[2024-05-13] MEDS: ELIQUIS 2.5 MG PO (20:00)
[2024-05-13 21:22] LABS: Glucose - Point of Care 314 mg/dl (70-99)
[2024-05-13] MEDS: LIPITOR 80 MG PO (21:30)
[2024-05-13] MEDS: LANTUS 0.05 UNITS SC (21:30)
[2024-05-14] VITALS (7 sets, daily range): BP systolic 104–131; BP diastolic 49–66; BMI 30.7; BMI 30.3
[2024-05-14] MEDS: FIRVANQ 125 MG PO ×4 (05:30→23:41)
[2024-05-14 06:07] LABS: Urine Sodium 6 mmol/L (30-90)
[2024-05-14 07:44] LABS: Hematocrit 23.1 % (39.0-52.0); Mean Corp Hgb Conc. 34.6 g/dL (33.0-37.0); Mean Corpuscular Hgb 24.2 pg (27.0-31.0); Platelet Count 137 10^3/uL (130-400); Red Cell Dist. Width 19.1 % (11.5-14.5); White Blood Cell Count 5.5 10^3/uL (4.8-10.8)
[2024-05-14] MEDS: DUONEB 3 ML INH ×2 (08:15→19:20)
[2024-05-14 08:29] LABS: Blood Urea Nitrogen 100 mg/dl (9-20); Calcium 8.4 mg/dl (8.4-10.2); Carbon Dioxide 14 mmol/L (22-30); Chloride 101 mmol/L (98-107); Estimated Creatinine Clearance 27 ml/min; Glucose 354 mg/dl (70-99); Potassium 4.4 mmol/L (3.5-5.1); Sodium 132 mmol/L (135-145); eGFR 28.81
[2024-05-14 08:46] LABS: Glucose - Point of Care 414 mg/dl (70-99)
[2024-05-14] MEDS: COREG 3.125 MG PO ×2 (08:52→20:40)
[2024-05-14] MEDS: PROTONIX 20 MG PO (08:52)
[2024-05-14] MEDS: PACERONE 200 MG PO (08:52)
[2024-05-14] MEDS: MYCOSTATIN ORAL SUSPENSION 5 ML PO ×4 (08:53→20:49)
[2024-05-14] MEDS: TAPAZOLE 5 MG PO (08:53)
[2024-05-14] MEDS: QUESTRAN 4 GRAM PO (08:53)
--- NOTE | 2024-05-14 09:58 | W.PN.HOSP.TC ---
Today's Communication/Plan
-
see A/P
Assessment / Plan
Assessment / Plan
A/P:
# Sepsis with Strep Bacteremia, unclear source
Continue IV ceftriaxone 2 g daily likely 6 week course
Cervical MRI no�spinal epidural abscess. Transthoracic echo no vegetations.
TTE unrevealing, ID request ZACHARY since pt has PPM , ZACHARY now planned for Wednesday 05/16
Cespedes catheter exchanged this admission
No evidence of cholecystitis clinically.
ID on board
# C. diff colitis
started PO vancomycin
ID on board
# Upper extremity weakness likely related to cervical stenosis vs ?myasthenia gravis, power has improved
Appreciated neurology and neurosurgery consults
MRI cervical spine noted significant spinal stenosis. MRI brain unrevealing. Carotid Doppler US noted BL calcified vessels, but less than 50% bilateral internal carotid artery stenosis.
Continue aspirin
PT OT note indicated that pt is non-ambulatory at baseline, so no skilled PT warranted
Started high dose methylprednisolone (1 g IV) x 5 days per neuro
CPK noted to be negative (which r/o myositis)
Check Acetylcholine receptor antibodies per neuro
EMG per neuro
# Suspect hyperthyroidism
TSH < 0.02, FT4 at 7.70
Could arm weakness be related/contribute to hyperthyroidism?
started empiric methimazole 5 mg, continue
recc outpt TFT in 4-6 weeks, informed
d/w Card wrt amiodarone in setting of hyperthyroidism
# LENI on CKD 3
# suspect initial LENI prerenal with low BPs/ infection
# Now possibly cardiorenal syndrome with acute on chronic HFpEF
CXR noted with pulm edema
IV Bumex BID per renal
Monitor volume status
Renal following
# Anion gap Metabolic acidosis likely due to LENI on CKD
Renal following
# Hypokalemia, resolved
# Anemia
Continue to monitor hemoglobin closely
# Elevated LFTs, resolved
Resumed Lipitor 80 mg
# Hematuria, Resolved. Likely due to traumatic Cespedes catheter exchange and also underlying use of Eliquis
Resumed Eliquis 2.5 BID and aspirin
Monitor hemoglobin
# Hypotension, Improved
Off IV fluids
# Paroxysmal atrial fibrillation:
On rate control carvedilol 3.125 mg twice a day with holding parameters
IV Lopressor as needed
On amiodarone 200 mg daily
On anticoagulation Eliquis 2.5 mg twice a day
# Diabetes mellitus type 2:
increase Lantus from 5 to 10 units HS (uncontrolled hyperglycemia due to high dose steroid)
increase Aspart from 5 to 10 units AC
moderate ISS
Hopefully BG will improved when high dose steroid stopped
# Hyperlipidemia:
Resumed statin
# CAD/PVD/CVA:
Continue anti-ischemic regimen
# Chronic pain syndrome/spinal stenosis/chronic narcotics dependence:
Continue fentanyl patch
IV Dilaudid as needed
# History of ulcerative colitis/GERD/GI bleed:
Monitor GI symptoms
# Thrombocytopenia has resolved
DVT prophylaxis: Eliquis 2.5 mg twice a day
CODE STATUS: Full code
DW RN
total time spent 51 min
Anticipated Discharge: > 48 hours
Subjective/Interval History
-
Date of Service: May 14, 2024
Objective Data
-
Labs:
Laboratory Results
05/14/24 05/14/24
07:05 09:36
WBC 5.5
Hgb 8.0 L
Hct 23.1 L
Plt Count 137
Sodium 132 L
Potassium 4.4
Chloride 101
Carbon Dioxide 14 L*
BUN 100 H
Creatinine 2.2 H
Glucose 354 H Pending
Calcium 8.4
Vital Signs:
Vital Signs
Temp Pulse Resp BP Pulse Ox
36.6 C 70 16 118/63 96
05/14/24 07:00 05/14/24 08:18 05/14/24 08:18 05/14/24 07:00 05/14/24 08:18
I&O
05/13/24 05/14/24 05/15/24
06:59 06:59 06:59
Intake Total 1058 / 1058 250 / 250
Output Total 900 / 900 250 / 250
Balance 158 / 158 0 / 0
Review of Systems
-
Neuro: Reports Weakness (BL arm weakness has improved )
Physical Exam
-
General: Well Developed, Comfortable, Conversant and Appears Chronically Ill
HEENT: Hearing Impaired
Respiratory: Clear to Auscultation and Non Labored Respirations; Negative Accessory Resp Muscle Use
Cardiac: Regular Rhythm and S1/S2
GI: Soft and Nontender
Genito-urinary: Cespedes; Negative Continuous Bladder Irrigation
Musculoskeletal: Other (Left AKA)
Skin: Other (see wound care note )
Neuro: Awake, Alert and Other (BL arm weakness slightly improved )
Psych: Calm and Intact Judgement/Insight (somewhat)
Data Reviewed
-
MRI: Report Reviewed by me
Labs: Labs Reviewed by me
[2024-05-14 10:09] LABS: Glucose 377 mg/dl (70-99)
[2024-05-14] MEDS: ROCEPHIN 2000 MG IV (10:11)
[2024-05-14] MEDS: NOVOLOG FLEXPEN 8 UNITS SC (10:12)
[2024-05-14] MEDS: NOVOLOG FLEXPEN-MODERATE RESISTANCE 9 UNITS SC (10:12)
[2024-05-14] MEDS: STERILE WATER FOR INJECTION 20 ML IV (10:12)
[2024-05-14] MEDS: FLUSH (NSS) IV ×2 (10:13)
[2024-05-14] MEDS: ASPIR LOW (ENTERIC COATED) 81 MG PO (10:17)
[2024-05-14] MEDS: ELIQUIS 2.5 MG PO ×2 (10:17→20:40)
--- NOTE | 2024-05-14 10:28 | W.PN.NEURO.1 ---
Today's Communication / Plan
-
Continue high dose methylprednisolone (1 g IV) x 5 days, day 1 was 05/11/2024
Will attempt to not provide steroids after IV steroids as there is confusion whether treatment of thyroid disease has produced improvement or high-dose steroids use has
Await acetylcholine receptor antibodies
Repetitive stimulation EMG to evaluate for possible myasthenia gravis or Lambert-Eaton myasthenic syndrome
Neuro Assessment/Plan
Assessment
Mr. Garcia endorses ongoing proximal arm weakness with new bilateral action hand tremor (not significant subsequently)
Acute bilateral upper paraparesis. MRI of the brain eliminated the etiology of watershed infarcts. MRI of cervical spine demonstrated spinal cord narrowing without critical narrowing or changes in the cord.
With CPK low, less likely myositis.
The discomfort that the patient is experiencing is not consistent typically with either myasthenia gravis or Lambert-Eaton myasthenic syndrome. However both must be considered instead of myositis
Plan
Continue high dose methylprednisolone (1 g IV) x 5 days, day 1 was 05/11/2024
Will attempt to not provide steroids after IV steroids as there is confusion whether treatment of thyroid disease has produced improvement or high-dose steroids use has
Await acetylcholine receptor antibodies
Repetitive stimulation EMG to evaluate for possible myasthenia gravis or Lambert-Eaton myasthenic syndrome
Will follow pending results
Subjective/Objective
Subjective Data
Date of Service: May 14, 2024
No change from prior day
Objective Data
Vital Signs
Temp Pulse Resp BP Pulse Ox
36.6 C 70 16 118/63 96
05/14/24 07:00 05/14/24 08:18 05/14/24 08:18 05/14/24 07:00 05/14/24 08:18
Lab Results
05/14/24 07:05
05/14/24 09:36
Sodium 132 mmol/L (135-145) L 05/14/24 07:05
Potassium 4.4 mmol/L (3.5-5.1) 05/14/24 07:05
BUN 100 mg/dl (9-20) H 05/14/24 07:05
Glucose 377 mg/dl (70-99) H 05/14/24 09:36
Calcium 8.4 mg/dl (8.4-10.2) 05/14/24 07:05
Oww-P-Epzzojadokf Pept 10721 pg/ml 05/13/24 10:19
Vitamin B12 > 1000 pg/ml (239-931) H 05/09/24 04:48
Patient Allergies
Sulfa (Sulfonamide Antibiotics) Allergy (Verified 05/04/24 14:45)
Hives
sulfasalazine Allergy (Verified 05/04/24 14:45)
mother states hives
Review of Systems
-
History Source: Patient
All other systems: Reviewed and negative
Musculoskeletal: Myalgias and Muscle Weakness; Negative Neck Pain
Physical Exam
-
General: No Apparent Distress and Appears Stated Age
Eyes: Round OU, Ruffin Conjunctivae and No Ptosis
HEENT: Atraumatic and Moist Mucous Membranes
Neck: Full Range of Motion
Respiratory: No Dyspnea
Cardiac: No JVD
GI: Non-distended
Skin: Unremarkable
Extremities: No Clubbing, No Cyanosis, No Edema and Other (Left AKA)
Psych: Intact Judgement/Insight
Extended Neurological Exam
Mood & Affect: Mood Unremarkable and Affect Unremarkable
Attention Span & Concentration: Awake, Alert and Interactive
Memory: Unremarkable
Tremor: Hand Tremor Absent and Head Tremor Absent
Speech: Quality Unremarkable and Quantity Unremarkable
Cranial Nerve II: Left Eye: Pupillary Size Unremarkable and Visual Ramachandran Grossly Intact
Cranial Nerve II: Right Eye: Pupillary Size Unremarkable and Visual Ramachandran Grossly Intact
Cranial Nerves III, IV, : Extraocular Movement: Grossly Intact
Cranial Nerve VII: Facial Symmetry: Normal Facial Symmetry
Cranial Nerve VIII: Hearing: Unremarkable Hearing to Normal Conversational Volume
Cranial Nerve XI: Shoulder Shrug: Unremarkable
Muscle Strength, Overall: Reduced Bilaterally (RUE weaker than left, 4 out of 5 approximately, left 4+ out of 5 proximally with full left hand strength, right hand strength limited by immobility of fourth and fifth fingers) and Other (Full in right
lower extremity)
Muscle Bulk & Tone: Bulk Unremarkable and Tone Unremarkable
Pronator Drift: Unable to Assess (Due to inability to maintain arms off of bed for greater than 2 seconds)
Touch Sensation: Unremarkable
Coordination: Reaches for Objects without Difficulty
Gait & Station: Unable to Assess
Data Reviewed
-
Labs: Report Reviewed
Reviewed with: Patient
Old Records: Summarized
Past History
Past History
ED Past Medical History: Arrthythmia (Atrial fib), CAD, CHF, GERD, HTN, Hypercholesterolemia, NIDDM, [place], Psychiatric (Anxiety, ) and Other (Arthritis, ulcerative colitis, chronic renal insufficiency, GI bleed, Back pain, Dizziness, Subdural
hematoma, IBS, Anemia. Thrombocytopenia)
ED Past Surgical History: Cardiac (Pacemaker, Bypass, Stents), Orthopedic (Bilateral ankle surgery. Left AKA, Left hip replacement, ), Tonsilectomy and Other (catracts, )
Patient has exhibited threatening behavior?: No
Social History
Tobacco: Non-smoker
Alcohol: None
Drug: None
Personal:
Living: long-term ([facility])
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
Family History
Family History: Other (Reviewed and noncontributory)
Medications
-
Medications:
Generic Name Dose Route Start Last Admin
Trade Name Freq PRN Reason Stop Dose Admin
Acetaminophen 650 mg 05/04/24 19:51 05/11/24 05:47
Acetaminophen 325 Mg Tablet PO 06/01/24 19:50 650 mg
Q4HPRN PRN Administration
mild pain/fever>100.4
Albuterol/Ipratropium 3 ml 05/04/24 19:51 05/08/24 09:58
Ipratropium 0.5/Albuterol 3 Mg (3 Ml Ampul) INH 3 ml
R Q6HPRN PRN Administration
cough
Protocol
Albuterol/Ipratropium 3 ml 05/06/24 20:00 05/14/24 08:15
Ipratropium 0.5/Albuterol 3 Mg (3 Ml Ampul) INH 3 ml
R BID CPIRIANO Administration
Protocol
Amiodarone HCl 200 mg 05/05/24 08:00 05/14/24 08:52
Amiodarone 200 Mg Tablet PO 06/02/24 07:59 200 mg
DAILY CIPRIANO Administration
Apixaban 2.5 mg 05/04/24 20:00 05/14/24 10:17
Apixaban (Eliquis) 2.5 Mg Tablet PO 06/01/24 19:59 2.5 mg
BID CIPRIANO Administration
Aspirin 81 mg 05/05/24 08:00 05/14/24 10:17
Aspirin 81 Mg (Enteric Coated) Tablet PO 06/02/24 07:59 81 mg
DAILY CIPRIANO Administration
Atorvastatin Calcium 80 mg 05/04/24 22:00 05/13/24 21:30
Atorvastatin (Lipitor) 80 Mg Tablet PO 06/01/24 21:59 80 mg
HS CIPRIANO Administration
Bumetanide 1 mg 05/13/24 20:00 05/13/24 19:59
Bumetanide (0.25 Mg/1 Ml) 4 Ml Vial IV 06/10/24 19:59 1 mg
BID CIPRIANO Administration
Carvedilol 3.125 mg 05/05/24 10:00 05/14/24 08:52
Carvedilol 3.125 Mg Tablet PO 06/02/24 09:59 3.125 mg
BID CIPRIANO Administration
Ceftriaxone Sodium 2,000 mg 05/06/24 10:00 05/14/24 10:11
Ceftriaxone 2,000 Mg/20 Ml Vial IV 2,000 mg
Q24H CIPRIANO Administration
Cholestyramine Resin 4 gram 05/07/24 08:00 05/14/24 08:53
Cholestyramine 4 Gram Packet PO 06/04/24 07:59 4 gram
DAILY CIPRIANO Administration
Dextrose 12.5 grams 05/14/24 10:07
Dextrose 50% (0.5 Grams/Ml) 50 Ml Syringe IV 06/11/24 10:06
Q21FBLX PRN
hypoglycemia
Protocol
Fentanyl 1 patch 05/04/24 20:00 05/13/24 19:52
Fentanyl 25 Mcg/Hr Patch TRANSDERM 05/18/24 19:59 1 patch
Q72H CIPRIANO Administration
Glucagon 1 mg 05/14/24 10:07
Glucagon 1 Mg Vial IM 06/11/24 10:06
PRN PRN
hypoglycemia
Protocol
Hydromorphone HCl 0.25 mg 05/04/24 16:49 05/09/24 20:46
Hydromorphone 0.25 Mg/0.5 Ml Syringe IV 05/18/24 16:48 0.25 mg
Q4HPRN PRN Administration
Severe pain
Methylprednisolone Sodium 258 mls @ 258 mls/hr 05/11/24 18:00 05/13/24 17:40
Succinate 1,000 mg/ Sodium IV 05/15/24 18:59 258 mls
Chloride Q24H CIPRIANO Administration
Insulin Glargine 10 units/ 0.1 mls @ 0 mls/hr 05/14/24 20:30
Device SC 06/03/24 20:29
DAILY@2030 CIPRIANO
As Directed
Insulin Aspart 0 units 05/14/24 11:30
Insulin Aspart Moderate Resistance 300 Units/3 Ml Pen.Injctr SC 06/11/24 11:29
AC CIPRIANO
Protocol
Insulin Aspart 10 units 05/14/24 11:30
Insulin Aspart (100 Units/Ml) 3 Ml Flexpen SC 06/07/24 11:29
AC CIPRIANO
Loperamide HCl 2 mg 05/06/24 19:51 05/09/24 10:42
Loperamide 2 Mg Capsule PO 06/03/24 19:50 2 mg
Q6HPRN PRN Administration
diarrhea
Methimazole 5 mg 05/11/24 11:00 05/14/24 08:53
Methimazole 5 Mg Tablet PO 06/08/24 10:59 5 mg
DAILY CIPRIANO Administration
Metoprolol Tartrate 5 mg 05/04/24 16:44
Metoprolol 5 Mg/5 Ml Vial IV 06/01/24 16:43
Q6HPRN PRN
HR>120
Miconazole Nitrate 0 applic 05/05/24 11:03
Miconazole Powder Bottle TOPICAL 06/02/24 11:02
BIDPRN PRN
yeasty red skin
Nystatin 5 ml 05/09/24 22:00 05/14/24 08:53
Nystatin Oral Suspension 500,000 Units/5 Ml PO 06/06/24 21:59 5 ml
QID CIPRIANO Administration
Pantoprazole Sodium 20 mg 05/05/24 08:00 05/14/24 08:52
Pantoprazole 20 Mg Delayed Release Tablet PO 06/02/24 07:59 20 mg
DAILY CIPRIANO Administration
Patch Removal 0 patch 05/10/24 20:00 05/13/24 19:52
Remove Fentanyl Patch REMOVE 05/24/24 19:59 1 patch
Q72H CIPRIANO Administration
Sodium Chloride 0 flush 05/04/24 20:00
Sodium Chloride 0.9% (Flush) Syringe IV 06/01/24 19:59
PER PROTOCOL CIPRIANO
Sodium Chloride 0 flush 05/06/24 10:00 05/14/24 10:13
0.9% Nacl Flush If Lactated Ringers Ivf Ordered IV 06/03/24 09:59 Not Given
BID@1000,1030 CIPRIANO
Sterile Water 20 ml 05/06/24 10:00 05/14/24 10:12
Sterile Water For Injection 20 Ml Vial IV 06/03/24 09:59 20 ml
Q24H CIPRIANO Administration
Vancomycin HCl 125 mg 05/09/24 18:00 05/14/24 05:30
Vancomycin Oral Solution 50 Mg/Ml In Oral Syringe PO 125 mg
Q6 CIPRIANO Administration
[2024-05-14] MEDS: BUMEX IV (10:55)
--- NOTE | 2024-05-14 12:08 | W.PN.CARDCBS ---
Today's Communication / Plan
-
Continue IV Bumex; management per nephrology
Tentative transesophageal echocardiogram to exclude endovascular vegetation in the setting of strep C bacteremia next week
Impression / Plan
-
PCP: Dr. Shaquille Mata
[employer] Apprentice: Dr. Bermudez
Impression:
Group C strep bacteremia
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
C. diff colitis
LENI on CKD 3
Hyperthyroidism, newly diagnosed
LENI on CKD, possibly immune complex related
Chronic HFpEF
Paroxysmal Afib
s/p CV in ER 08/01/20
s/p CV in ER 03/30/23
Chronic Eliquis OAC
SSS, tachy-rufus
s/p Medtronic DC PPM 04/16/23
Chronic LBBB
h/o falls 08/2022 resulting in bruising and 11/2022 resulting in SDH
CAD
s/p CABG x5 in 2009
s/p LAD PCI 06/2014, cath showed SVG to diag sequential to OM1 seq to OM2 100% occluded
s/p PCI LCX EMELINA 08/02/20 complicated by small groin PSA treated with thrombin injection in IR 08/02/20
severe spinal stenosis s/p radiofrequency ablation
PAD
s/p L AKA 06/26/2023
s/p RLE arteriogram, lithotripsy, angioplasty, and wound debridement 11/21/2023
HTN
HLD
GERD
CKD
Ulcerative colitis
chronic thrombocytopenia
h/o GI bleed
DM-2
limited mobility status
ECHO 08/02/20: EF 40-45%, basal to mid inferior and posterior lateral hypokinesis, mild concentric LVH, mild MAC, trace MR, mild aortic insufficiency, mild TR, PAP 36-41 mmHg
Echo 05/14/21: Ejection fraction 50-55%, mild MR
ECHO 04/16/23: EF 50%, hypokinesis of inferolateral wall, mild concentric LVH, mild MR, mild AR, mild TR, PAP 26 mmHg, trace LA
ECHO 05/05/23: Technically fair, EF 55%, biatrial enlargement, no significant valve disease, no pericardial effusion
Echo 05/06/2024: EF 40 to 45%, stage II diastolic dysfunction, mild MR, trace AI, moderate TR
Plan:
Strep C bacteremia
-ID consulted and patient remains on IV antibiotics
-Transesophageal echocardiogram without definite evidence of vegetation with tentative plan for eventual transesophageal echocardiogram
-He is tentatively scheduled for Thursday however I am concerned about his labile hemodynamics, shortness of breath And concern for myasthenia gravis with complaints of dysphagia/aspiration
-Will reassess tomorrow
C. difficile colitis�p.o. vancomycin. ID following
Chronic HFpEF with cardiorenal syndrome being followed by nephrology. Continue IV Bumex but will defer diuretics to nephrology.
History of paroxysmal atrial fibrillation and sick sinus syndrome status post pacemaker April 16, 2023
-Atrial paced Rhythm
-Continue anticoagulation, renally dosed
-Continue carvedilol but will stop amiodarone due to concerns for thyroid toxicity
Ongoing upper extremity weakness undergoing neurologic evaluation on IV steroids
Hyperthyroidism on amiodarone�started on methimazole. Amiodarone will be held. Outpatient repeat TFTs
CODE STATUS: Full
HPI : Antoine is an 83-year-old male with past medical history of chronic HFpEF, paroxysmal atrial fibrillation, tachybradycardia status post permanent pacemaker, prior SDH, CAD status post CABG with subsequent PCI, spinal stenosis, PAD, hypertension,
hyperlipidemia, GERD, CKD, UC, thrombocytopenia, prior GI bleed, and DM 2. He presented to ER for evaluation of fever. Had also been having general malaise and lethargy over the past 2 days with significant upper extremity weakness. He was
febrile in ER with temperature of 101.8 with lactic acid of 2.1. He was admitted for further workup and management. He was started on IV antibiotics. Unclear source of infection. Blood cultures returned positive for strep. Also with evidence of
C. difficile colitis and started on vancomycin. Also noted to be hyperthyroid with TSH <0.02 with free T47.7. He had echocardiogram 05/06/2024 which was without evidence of endocarditis. Cardiology consulted now for consideration of ZACHARY given
strep bacteremia with unclear source. Patient continues to feel poorly and his main complaint is his upper extremity weakness.
Progress Note - [employer] Apprentice
Subjective
Date of Service: May 14, 2024
Patient seen and examined. Offers no specific complaints at present.
Objective
Labs:
05/14/24 07:05
05/14/24 09:36
Labs
Hgb 8.0 g/dL (13.0-18.0) L 05/14/24 07:05
Hct 23.1 % (39.0-52.0) L 05/14/24 07:05
Plt Count 137 10^3/uL (130-400) 05/14/24 07:05
Sodium 132 mmol/L (135-145) L 05/14/24 07:05
Potassium 4.4 mmol/L (3.5-5.1) 05/14/24 07:05
BUN 100 mg/dl (9-20) H 05/14/24 07:05
Creatinine 2.2 mg/dL (0.7-1.3) H 05/14/24 07:05
Glucose 377 mg/dl (70-99) H 05/14/24 09:36
Vital Signs and I&O:
Vital Signs
Temp Pulse Resp BP Pulse Ox
97.8 F 70 16 118/63 96
05/14/24 07:00 05/14/24 08:18 05/14/24 08:18 05/14/24 07:00 05/14/24 08:18
Vital Signs
Temp Pulse Resp BP Pulse Ox
97.8 F 70 16 118/63 96
05/14/24 07:00 05/14/24 08:18 05/14/24 08:18 05/14/24 07:00 05/14/24 08:18
Intake & Output
05/12/24 05/13/24 05/14/24 05/15/24
06:59 06:59 06:59 06:59
Intake Total 918 / 918 1058 / 1058 250 / 250
Output Total 425 / 425 900 / 900 250 / 250
Balance 493 / 493 158 / 158 0 / 0
Physical Exam
Physical Exam
GEN: No distress, awake, alert, oriented x3. chronically ill appearing
HEENT: supple, anicteric, mmm, eomi
LUNGS: decreased BS B/L, no wheezes
CV: Reg, S1/S2, 1/6 syst LSB
ABD: soft, BS+, NT/ND
EXT: No cyanosis, clubbing. L AKA. 3+ edema of RLE
: nik
[2024-05-14 12:31] LABS: Glucose - Point of Care 434 mg/dl (70-99)
[2024-05-14 13:54] LABS: Glucose 413 mg/dl (70-99)
--- NOTE | 2024-05-14 13:54 | W.PN.NEPH.PH ---
Today's Communication / Plan
-
Increase Bumex to 2 mg IV twice daily
Maintain fall
Assessment/Plan
-
Assessment:
Sepsis with Strept Bacteremia
Upper extremity weakness
Hematuria:? Traumatic Zaragoza catheter exchange and also underlying use of Eliquis
Hypotension
LENI on CKD-baseline cr 1-1.3
hypokalemia
Abnormal thyroid test
Anemia
Acute on Chronic thrombocytopenia
Paroxysmal atrial fibrillation
Diabetes mellitus type 2
Hyperlipidemia
Chronic HFpEF
CAD/PVD/CVA
Chronic pain syndrome/spinal stenosis/chronic narcotics dependence
History of ulcerative colitis/GERD/GI bleed
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
CAD/SD/CABG 2009
Chronic LBBB
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
Chronic right lower extremity lymphedema
Hx CVA per CT head
Hx subdural hematoma after mechanical fall
Hx orthostatic hypotension/HTN
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
Chronic pain syndrome secondary to spinal stenosis on chronic opiate patch
GERD/Hx GI bleed
Hx ulcerative colitis- azathioprine
Anxiety
Chronic ambulatory dysfunction with chronic foot and ankle deformities
Hypoalbuminemia
Plan:
A/w UE weakness, sepsis and group C bacteremia
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
BUN ~ 100
acidosis worsening
re check Fena, chronic zaragoza and no sig diuresis : 250cc
weights up, BNP up and CXR noted with pulm edema
Can increase Bumex 2mg IV twice daily but it appears to be ineffectual
microhematuria with zaragoza, neg U eosinophil
CT on admit with out hydronephrosis
echo noted EF 40-45%, eventual ZACHARY
bp are soft, coreg with holding parameters,
dose meds renally, abx per ID
on pulse steroid 3/5 per neuro
TSH low and high FT4 on Amiodarone--methimazole started
hyponatremia corrected for hyperglycemia
avoid nephrotoxins
follow h/h , hb at 7.9
Add sodium bicarbonate for metabolic acidosis
follow labs
We are approaching dialysis but unfortunately the patient given his advanced age and multiple comorbidities will be a terrible candidate I am not even sure that this will be clinically feasible
Discussed in detail with patient and son
He remains hemodynamically labile
-
-
Date of Service: May 14, 2024
CC / HPI / ROS
-
Chief Complaint:
LENI
History of Present Illness:
Creatinine up to 2.2, na low 132 with hyperglycemia
Hemodynamically soft BPs
wt is up, on RA
barely non oliguric with zaragoza
Review of Systems:
no sob at rest
no n/v
left UE weakness slightly better post steroid
no fevers
Urine output only 250 cc
Labs
-
Labs:
WBC 5.5 10^3/uL (4.8-10.8) 05/14/24 07:05
RBC 3.30 10^6/uL (4.70-6.10) L 05/14/24 07:05
Hgb 8.0 g/dL (13.0-18.0) L 05/14/24 07:05
Hct 23.1 % (39.0-52.0) L 05/14/24 07:05
Plt Count 137 10^3/uL (130-400) 05/14/24 07:05
Sodium 132 mmol/L (135-145) L 05/14/24 07:05
Potassium 4.4 mmol/L (3.5-5.1) 05/14/24 07:05
Chloride 101 mmol/L (98-107) 05/14/24 07:05
Carbon Dioxide 14 mmol/L (22-30) L* 05/14/24 07:05
BUN 100 mg/dl (9-20) H 05/14/24 07:05
Creatinine 2.2 mg/dL (0.7-1.3) H 05/14/24 07:05
eGFR 28.81 05/14/24 07:05
Calcium 8.4 mg/dl (8.4-10.2) 05/14/24 07:05
Qsa-M-Nruaoaupqcb Pept 91674 pg/ml 05/13/24 10:19
Albumin 2.8 g/dl (3.5-5.0) L 05/13/24 10:19
Physical Exam
-
Vital Signs:
Vital Signs
Temp Pulse Resp BP Pulse Ox
98.0 F 89 18 111/58 95
05/14/24 11:00 05/14/24 11:00 05/14/24 11:00 05/14/24 11:00 05/14/24 11:00
Cardiovascular:: Regular rate and rhythm
Respiratory:: Bilateral: Coarse
Lung Excursion:: Normal
Abdomen:: Soft
Extremity Edema:: +3: Right:
Zaragoza Catheter: Yes
Other Findings::
left AKA
[2024-05-14] MEDS: NOVOLOG FLEXPEN-MODERATE RESISTANCE 11 UNITS SC ×2 (14:04→17:30)
[2024-05-14] MEDS: NOVOLOG FLEXPEN 10 UNITS SC ×2 (14:04→17:08)
[2024-05-14 16:28] LABS: Glucose - Point of Care 452 mg/dl (70-99)
[2024-05-14] MEDS: SOLU-MEDROL 258 MG IV (17:09)
[2024-05-14 17:13] LABS: Glucose 418 mg/dl (70-99)
[2024-05-14] MEDS: LIPITOR 80 MG PO (20:46)
[2024-05-14] MEDS: BUMEX 2 MG IV (20:47)
[2024-05-14] MEDS: LANTUS 0.1 UNITS SC (20:51)
[2024-05-14 20:52] LABS: Glucose - Point of Care 358 mg/dl (70-99)
[2024-05-15] VITALS (7 sets, daily range): BP systolic 101–142; BP diastolic 52–86; PULSE 4–79; BMI 31.3; BMI 30.7
[2024-05-15] MEDS: FIRVANQ 125 MG PO ×4 (06:34→23:57)
[2024-05-15 07:52] LABS: Glucose - Point of Care 394 mg/dl (70-99)
[2024-05-15] MEDS: BUMEX 2 MG IV (07:59)
[2024-05-15] MEDS: QUESTRAN 4 GRAM PO (07:59)
[2024-05-15] MEDS: MYCOSTATIN ORAL SUSPENSION 5 ML PO ×4 (07:59→22:05)
[2024-05-15] MEDS: PROTONIX 20 MG PO (07:59)
[2024-05-15] MEDS: ELIQUIS 2.5 MG PO ×2 (08:00→22:05)
[2024-05-15] MEDS: TAPAZOLE 5 MG PO (08:00)
[2024-05-15] MEDS: COREG 3.125 MG PO ×2 (08:00→22:03)
[2024-05-15] MEDS: ASPIR LOW (ENTERIC COATED) 81 MG PO (08:00)
[2024-05-15] MEDS: NOVOLOG FLEXPEN 15 UNITS SC ×3 (08:01→17:50)
[2024-05-15] MEDS: NOVOLOG FLEXPEN-MODERATE RESISTANCE 9 UNITS SC ×2 (08:01→12:05)
[2024-05-15 08:14] LABS: Hematocrit 21.9 % (39.0-52.0); Hemoglobin 7.5 g/dL (13.0-18.0); Mean Corp Hgb Conc. 34.2 g/dL (33.0-37.0); Mean Corpuscular Hgb 24.1 pg (27.0-31.0); Mean Corpuscular Volume 70.4 fL (80.0-94.0); Platelet Count 134 10^3/uL (130-400); Red Blood Cell Count 3.11 10^6/uL (4.70-6.10); Red Cell Dist. Width 19.1 % (11.5-14.5); White Blood Cell Count 4.2 10^3/uL (4.8-10.8)
[2024-05-15] MEDS: DUONEB 3 ML INH ×2 (08:26→18:20)
[2024-05-15] MEDS: NOVOLOG FLEXPEN SC (08:28)
[2024-05-15 08:32] LABS: Blood Urea Nitrogen 103 mg/dl (9-20); Calcium 8.2 mg/dl (8.4-10.2); Carbon Dioxide 19 mmol/L (22-30); Chloride 98 mmol/L (98-107); Estimated Creatinine Clearance 23 ml/min; Glucose 357 mg/dl (70-99); Magnesium 1.9 mg/dl (1.6-2.3); Potassium 4.1 mmol/L (3.5-5.1); Sodium 132 mmol/L (135-145); eGFR 24.72
--- NOTE | 2024-05-15 10:14 | W.PN.HOSP.TC ---
Addendum entered and electronically signed by Trinity Woodruff MD 05/15/24 13:45:
No further plan for ZACHARY due to severe clinical frailty.
Discussed with cardiology, ID, nephrology.
N.p.o. canceled.
Poor prognosis with severe clinical decompensation.
Addendum entered and electronically signed by Trinity Woodruff MD 05/15/24 10:38:
called back. Updated on the phone. Extensive discussion
Original Note:
Today's Communication/Plan
-
see A/P
Assessment / Plan
Assessment / Plan
A/P:
# Sepsis with Strep Bacteremia, unclear source
Continue IV ceftriaxone 2 g daily likely 6 week course
Cervical MRI no�spinal epidural abscess. Transthoracic echo no vegetations.
TTE unrevealing, ID request ZACHARY since pt has PPM , ZACHARY now planned for Wednesday 05/16
Cespedes catheter exchanged this admission
No evidence of cholecystitis clinically.
ID on board
# C. diff colitis
started PO vancomycin
ID on board
# Upper extremity weakness likely related to cervical stenosis vs ?myasthenia gravis, power has improved
Appreciated neurology and neurosurgery consults
MRI cervical spine noted significant spinal stenosis. MRI brain unrevealing. Carotid Doppler US noted BL calcified vessels, but less than 50% bilateral internal carotid artery stenosis.
Continue aspirin
PT OT note indicated that pt is non-ambulatory at baseline, so no skilled PT warranted
Started high dose methylprednisolone (1 g IV) x 5 days per neuro
CPK noted to be negative (which r/o myositis)
Check Acetylcholine receptor antibodies per neuro
EMG per neuro
# Suspect hyperthyroidism
TSH < 0.02, FT4 at 7.70
Could arm weakness be related/contribute to hyperthyroidism?
started empiric methimazole 5 mg
recc outpt TFT in 4-6 weeks, informed
Amiodarone discontinued by card
# LENI on CKD 3
# suspect initial LENI prerenal with low BPs/ infection
# Now possibly cardiorenal syndrome with acute on chronic HFpEF
CXR noted with pulm edema
IV Bumex BID per renal
Monitor volume status
Renal following
# Anion gap Metabolic acidosis likely due to LENI on CKD
Renal following
# Hypokalemia, resolved
# Anemia
Continue to monitor hemoglobin closely
# Elevated LFTs, resolved
Resumed Lipitor 80 mg
# Hematuria, Resolved. Likely due to traumatic Cespedes catheter exchange and also underlying use of Eliquis
Resumed Eliquis 2.5 BID and aspirin
Monitor hemoglobin
# Hypotension, Improved
Off IV fluids
# Paroxysmal atrial fibrillation:
On rate control carvedilol 3.125 mg twice a day with holding parameters
IV Lopressor as needed
Amiodarone discontinued by card / hyperthyroidism
On anticoagulation Eliquis 2.5 mg twice a day
# Diabetes mellitus type 2:
hyperglycemia due to high dose steroid, suspect BG will improve with discontinuation of steroid
Lantus increased to 15 units HS
Aspart increased to 15 units AC
Cont moderate ISS coverage
# Hyperlipidemia:
Resumed statin
# CAD/PVD/CVA:
Continue anti-ischemic regimen
# Chronic pain syndrome/spinal stenosis/chronic narcotics dependence:
Continue fentanyl patch
IV Dilaudid as needed
# History of ulcerative colitis/GERD/GI bleed:
Monitor GI symptoms
# Thrombocytopenia has resolved
DVT prophylaxis: Eliquis 2.5 mg twice a day
CODE STATUS: Full code
DW RN
called to update, calls not answered
Anticipated Discharge: > 48 hours
Subjective/Interval History
-
Date of Service: May 15, 2024
Objective Data
-
Labs:
Laboratory Results
05/15/24
06:53
WBC 4.2 L
Hgb 7.5 L
Hct 21.9 L
Plt Count 134
Sodium 132 L
Potassium 4.1
Chloride 98
Carbon Dioxide 19 L
BUN 103 H*
Creatinine 2.5 H
Glucose 357 H
Calcium 8.2 L
Vital Signs:
Vital Signs
Temp Pulse Resp BP Pulse Ox
36.5 C 69 16 118/62 94
05/15/24 08:00 05/15/24 08:29 05/15/24 08:29 05/15/24 08:00 05/15/24 08:29
I&O
05/14/24 05/15/24 05/16/24
06:59 06:59 06:59
Intake Total 250 / 250 978 / 978
Output Total 250 / 250 575 / 575
Balance 0 / 0 403 / 403
Review of Systems
-
All other systems: Reviewed and negative
Neuro: Reports Weakness (BL arm weakness has improved )
Physical Exam
-
General: Well Developed, Comfortable, Conversant and Appears Chronically Ill
HEENT: Hearing Impaired
Respiratory: Clear to Auscultation and Non Labored Respirations; Negative Accessory Resp Muscle Use
Cardiac: Regular Rhythm and S1/S2
GI: Soft and Nontender
Genito-urinary: Cespedes; Negative Continuous Bladder Irrigation
Musculoskeletal: Other (Left AKA)
Skin: Other (see wound care note )
Neuro: Awake, Alert and Other (BL arm weakness improved )
Psych: Calm and Intact Judgement/Insight (somewhat)
Data Reviewed
-
MRI: Report Reviewed by me
Labs: Labs Reviewed by me
[2024-05-15] MEDS: FLUSH (NSS) 1 FLUSH IV ×2 (11:46)
[2024-05-15] MEDS: ROCEPHIN 2000 MG IV (11:46)
[2024-05-15] MEDS: STERILE WATER FOR INJECTION 20 ML IV (11:46)
[2024-05-15 11:47] LABS: Glucose - Point of Care 384 mg/dl (70-99)
--- NOTE | 2024-05-15 13:19 | W.PN.NEURO.1 ---
Today's Communication / Plan
-
Continue high dose methylprednisolone (1 g IV) x 5 days, day 1 was 05/11/2024
Will not provide steroids after IV steroids as there is confusion whether treatment of thyroid disease has produced improvement or high-dose steroids use has
Await acetylcholine receptor antibodies
Repetitive stimulation EMG to evaluate for possible myasthenia gravis or Lambert-Eaton myasthenic syndrome
Neuro Assessment/Plan
Assessment
Mr. Garcia endorses ongoing proximal arm weakness with new bilateral action hand tremor (not significant subsequently)
Acute bilateral upper paraparesis. MRI of the brain eliminated the etiology of watershed infarcts. MRI of cervical spine demonstrated spinal cord narrowing without critical narrowing or changes in the cord.
With CPK low, less likely myositis.
The discomfort that the patient is experiencing is not consistent typically with either myasthenia gravis or Lambert-Eaton myasthenic syndrome. However both must be considered instead of myositis
Plan
Continue high dose methylprednisolone (1 g IV) x 5 days, day 1 was 05/11/2024
Will not provide steroids after IV steroids as there is confusion whether treatment of thyroid disease has produced improvement or high-dose steroids use has
Await acetylcholine receptor antibodies
Repetitive stimulation EMG to evaluate for possible myasthenia gravis or Lambert-Eaton myasthenic syndrome
Will follow pending results
Subjective/Objective
Subjective Data
Date of Service: May 15, 2024
Objective Data
Vital Signs
Temp Pulse Resp BP Pulse Ox
36.5 C 63 22 142/86 94
05/15/24 08:00 05/15/24 11:00 05/15/24 11:00 05/15/24 11:00 05/15/24 11:00
Lab Results
05/15/24 06:53
05/15/24 06:53
Sodium 132 mmol/L (135-145) L 05/15/24 06:53
Potassium 4.1 mmol/L (3.5-5.1) 05/15/24 06:53
BUN 103 mg/dl (9-20) H* 05/15/24 06:53
Glucose 357 mg/dl (70-99) H 05/15/24 06:53
Calcium 8.2 mg/dl (8.4-10.2) L 05/15/24 06:53
God-T-Hfcdxrilkvl Pept 01598 pg/ml 05/13/24 10:19
Vitamin B12 > 1000 pg/ml (239-931) H 05/09/24 04:48
Patient Allergies
Sulfa (Sulfonamide Antibiotics) Allergy (Verified 05/04/24 14:45)
Hives
sulfasalazine Allergy (Verified 05/04/24 14:45)
mother states hives
--- NOTE | 2024-05-15 14:30 | W.PN.NEPH.PH ---
Today's Communication / Plan
-
Maintain IV diuretics, will increase Bumex to 3 mg IV twice daily
Dialysis discussions
Follow-up BMP
Assessment/Plan
-
Assessment:
Sepsis with Strept Bacteremia
Upper extremity weakness
Hematuria:? Traumatic Zaragoza catheter exchange and also underlying use of Eliquis
Hypotension
LENI on CKD-baseline cr 1-1.3
hypokalemia
Abnormal thyroid test
Anemia
Acute on Chronic thrombocytopenia
Paroxysmal atrial fibrillation
Diabetes mellitus type 2
Hyperlipidemia
Chronic HFpEF
CAD/PVD/CVA
Chronic pain syndrome/spinal stenosis/chronic narcotics dependence
History of ulcerative colitis/GERD/GI bleed
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
CAD/PA/CABG 2009
Chronic LBBB
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
Chronic right lower extremity lymphedema
Hx CVA per CT head
Hx subdural hematoma after mechanical fall
Hx orthostatic hypotension/HTN
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
Chronic pain syndrome secondary to spinal stenosis on chronic opiate patch
GERD/Hx GI bleed
Hx ulcerative colitis- azathioprine
Anxiety
Chronic ambulatory dysfunction with chronic foot and ankle deformities
Hypoalbuminemia
Plan:
A/w UE weakness, sepsis and group C bacteremia
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
BUN ~ 100
acidosis worsening
re check Fena, chronic zaragoza and no sig diuresis : 250cc
weights up, BNP up and CXR noted with pulm edema
increased Bumex 2mg IV twice daily but it appears to be ineffectual, urine output less than 600 cc and patient examines hypervolemic
microhematuria with zaragoza, neg U eosinophil
CT on admit with out hydronephrosis
echo noted EF 40-45%, eventual ZACHARY
bp are soft, coreg with holding parameters,
dose meds renally, abx per ID
on pulse steroid 3/5 per neuro
TSH low and high FT4 on Amiodarone--methimazole started
hyponatremia corrected for hyperglycemia
avoid nephrotoxins
follow h/h , hb at 7.9
Add sodium bicarbonate for metabolic acidosis
follow labs
We are approaching dialysis but unfortunately the patient given his advanced age and multiple comorbidities will be a terrible candidate I am not even sure that this will be clinically feasible
Discussed in detail with patient and son
If the patient wants to be fully aggressive we will have to place dialysis catheter and initiate dialysis this week. His only other option would be hospice which unfortunately would be a more reasonable course
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
and hemodynamic compromise
They would like to discuss his course of action with their daughter
-
-
Date of Service: May 15, 2024
CC / HPI / ROS
-
Chief Complaint:
LENI
History of Present Illness:
Creatinine up to 2.5, BUN now up over 100, na low 132 with hyperglycemia
Hemodynamically soft BPs
barely non oliguric with zaragoza
Review of Systems:
no sob at rest
no n/v
left UE weakness slightly better post steroid
no fevers
Urine output only 575cc
Labs
-
Labs:
WBC 4.2 10^3/uL (4.8-10.8) L 05/15/24 06:53
RBC 3.11 10^6/uL (4.70-6.10) L 05/15/24 06:53
Hgb 7.5 g/dL (13.0-18.0) L 05/15/24 06:53
Hct 21.9 % (39.0-52.0) L 05/15/24 06:53
Plt Count 134 10^3/uL (130-400) 05/15/24 06:53
Sodium 132 mmol/L (135-145) L 05/15/24 06:53
Potassium 4.1 mmol/L (3.5-5.1) 05/15/24 06:53
Chloride 98 mmol/L (98-107) 05/15/24 06:53
Carbon Dioxide 19 mmol/L (22-30) L 05/15/24 06:53
BUN 103 mg/dl (9-20) H* 05/15/24 06:53
Creatinine 2.5 mg/dL (0.7-1.3) H 05/15/24 06:53
eGFR 24.72 05/15/24 06:53
Glucose 357 mg/dl (70-99) H 05/15/24 06:53
Calcium 8.2 mg/dl (8.4-10.2) L 05/15/24 06:53
Zme-H-Inzfbyowkph Pept 65980 pg/ml 05/13/24 10:19
Albumin 2.8 g/dl (3.5-5.0) L 05/13/24 10:19
Physical Exam
-
Vital Signs:
Vital Signs
Temp Pulse Resp BP Pulse Ox
97.7 F 63 22 142/86 94
05/15/24 08:00 05/15/24 11:00 05/15/24 11:00 05/15/24 11:00 05/15/24 11:00
Cardiovascular:: Regular rate and rhythm
Respiratory:: Bilateral: Coarse
Lung Excursion:: Normal
Abdomen:: Soft
Extremity Edema:: +3: Right:
Zaragoza Catheter: Yes
Other Findings::
left AKA
[2024-05-15 16:50] LABS: Glucose - Point of Care 337 mg/dl (70-99)
--- NOTE | 2024-05-15 17:13 | W.PN.CARDCBS ---
Today's Communication / Plan
-
Continue diuretic efforts per renal
No plan to proceed with transesophageal echocardiogram at this time
Impression / Plan
-
PCP: Dr. Shaquille Mata
Supervisor Scouring Pads: Dr. Bermudez
Impression:
Group C strep bacteremia
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
C. diff colitis
LENI on CKD 3
Hyperthyroidism, newly diagnosed
LENI on CKD, possibly immune complex related
Chronic HFpEF
Paroxysmal Afib
s/p CV in ER 08/01/20
s/p CV in ER 03/30/23
Chronic Eliquis OAC
SSS, tachy-rufus
s/p Medtronic DC PPM 04/16/23
Chronic LBBB
h/o falls 08/2022 resulting in bruising and 11/2022 resulting in SDH
CAD
s/p CABG x5 in 2009
s/p LAD PCI 06/2014, cath showed SVG to diag sequential to OM1 seq to OM2 100% occluded
s/p PCI LCX EMELINA 08/02/20 complicated by small groin PSA treated with thrombin injection in IR 08/02/20
severe spinal stenosis s/p radiofrequency ablation
PAD
s/p L AKA 06/26/2023
s/p RLE arteriogram, lithotripsy, angioplasty, and wound debridement 11/21/2023
HTN
HLD
GERD
CKD
Ulcerative colitis
chronic thrombocytopenia
h/o GI bleed
DM-2
limited mobility status
ECHO 08/02/20: EF 40-45%, basal to mid inferior and posterior lateral hypokinesis, mild concentric LVH, mild MAC, trace MR, mild aortic insufficiency, mild TR, PAP 36-41 mmHg
Echo 05/14/21: Ejection fraction 50-55%, mild MR
ECHO 04/16/23: EF 50%, hypokinesis of inferolateral wall, mild concentric LVH, mild MR, mild AR, mild TR, PAP 26 mmHg, trace NH
ECHO 05/05/23: Technically fair, EF 55%, biatrial enlargement, no significant valve disease, no pericardial effusion
Echo 05/06/2024: EF 40 to 45%, stage II diastolic dysfunction, mild MR, trace AI, moderate TR
Plan:
Strep C bacteremia
-Blood cultures + 05/04/2024 with blood cultures no growth to date 05/06/2024
-ID consulted and patient remains on IV antibiotics
-Transthoracic echocardiogram without definite evidence of vegetation
-We were initially consulted for transesophageal echocardiogram which was previously discussed with patient and his . He is higher risk for anesthesia related complications in the setting of worsening renal insufficiency, Systolic heart failure,
volume overload, swallowing dysfunction/aspiration and concern for myasthenia gravis. Discussed with ID and nephrology in addition to patient. His blood cultures have cleared. At this time will not proceed with transesophageal echocardiogram.
-Will arrange for repeat Transthoracic 2D echocardiogram in 2 to 4 weeks
C. difficile colitis�p.o. vancomycin. ID following
Chronic HFpEF with cardiorenal syndrome being followed by nephrology.
-Continue IV Bumex but will defer diuretics to nephrology.
-Per nephrology he is not a dialysis candidate
History of paroxysmal atrial fibrillation and sick sinus syndrome status post pacemaker April 16, 2023
-Atrial paced Rhythm
-Continue anticoagulation, renally dosed
-Continue carvedilol but will stop amiodarone due to concerns for thyroid toxicity
Ongoing upper extremity weakness undergoing neurologic evaluation on IV steroids
Hyperthyroidism on amiodarone�started on methimazole. Amiodarone will be held. Outpatient repeat TFTs
CODE STATUS: Full. Unfortunately, given his multiple comorbidities and frail state he has an overall poor prognosis.
HPI : Antoine is an 83-year-old male with past medical history of chronic HFpEF, paroxysmal atrial fibrillation, tachybradycardia status post permanent pacemaker, prior SDH, CAD status post CABG with subsequent PCI, spinal stenosis, PAD, hypertension,
hyperlipidemia, GERD, CKD, UC, thrombocytopenia, prior GI bleed, and DM 2. He presented to ER for evaluation of fever. Had also been having general malaise and lethargy over the past 2 days with significant upper extremity weakness. He was
febrile in ER with temperature of 101.8 with lactic acid of 2.1. He was admitted for further workup and management. He was started on IV antibiotics. Unclear source of infection. Blood cultures returned positive for strep. Also with evidence of
C. difficile colitis and started on vancomycin. Also noted to be hyperthyroid with TSH <0.02 with free T47.7. He had echocardiogram 05/06/2024 which was without evidence of endocarditis. Cardiology consulted now for consideration of ZACHARY given
strep bacteremia with unclear source. Patient continues to feel poorly and his main complaint is his upper extremity weakness.
Progress Note - Supervisor Scouring Pads
Subjective
Date of Service: May 15, 2024
Seen and examined. Overall patient is reporting generalized weakness and fatigue but no new complaints.
Objective
Labs:
05/15/24 06:53
05/15/24 06:53
Labs
Hgb 7.5 g/dL (13.0-18.0) L 05/15/24 06:53
Hct 21.9 % (39.0-52.0) L 05/15/24 06:53
Plt Count 134 10^3/uL (130-400) 05/15/24 06:53
Sodium 132 mmol/L (135-145) L 05/15/24 06:53
Potassium 4.1 mmol/L (3.5-5.1) 05/15/24 06:53
BUN 103 mg/dl (9-20) H* 05/15/24 06:53
Creatinine 2.5 mg/dL (0.7-1.3) H 05/15/24 06:53
Glucose 357 mg/dl (70-99) H 05/15/24 06:53
Vital Signs and I&O:
Vital Signs
Temp Pulse Resp BP Pulse Ox
97.9 F 65 22 124/65 95
05/15/24 15:56 05/15/24 15:56 05/15/24 15:56 05/15/24 15:56 05/15/24 15:56
Vital Signs
Temp Pulse Resp BP Pulse Ox
97.9 F 65 22 124/65 95
05/15/24 15:56 05/15/24 15:56 05/15/24 15:56 05/15/24 15:56 05/15/24 15:56
Intake & Output
05/13/24 05/14/24 05/15/24 05/16/24
06:59 06:59 06:59 06:59
Intake Total 1058 / 1058 250 / 250 978 / 978
Output Total 900 / 900 250 / 250 575 / 575
Balance 158 / 158 0 / 0 403 / 403
Physical Exam
Physical Exam
GEN: No distress, awake, alert, oriented x3. chronically ill appearing
HEENT: mmm
LUNGS: decreased BS B/L, no wheezes
CV: Reg, S1/S2, 1/6 syst LSB
ABD: soft, BS+, NT/ND
EXT: L AKA. 3+ edema of RLE
: zaragoza
[2024-05-15] MEDS: SOLU-MEDROL 258 MG IV (17:49)
[2024-05-15] MEDS: BUMEX 3 MG IV (17:50)
[2024-05-15] MEDS: NOVOLOG FLEXPEN-MODERATE RESISTANCE 7 UNITS SC (17:51)
[2024-05-15 18:26] LABS: Acetylcholine Receptor Bind Ab 0.1 nmol/L (0.0-0.4)
--- NOTE | 2024-05-15 18:30 | PTCARENOTE ---
Patient with slight audible wheeze, but denies SOB. Only reports occasional cough. Family at bedside. Respiratory contacted for breathing tx.
--- NOTE | 2024-05-15 19:45 | PTCARENOTE ---
With walking rounds, patient appears to be in distress with increased work of breathing and use of accessory muscles. Breath sounds wet with respirations. Pox noted to be in low 80s on RA. Patient placed on 4L nasal cannula, with Pox maintaining in
high 80s with continued distress from patient. Patient reports feeling like he can't get mucus out of his throat. Patient placed on non rebreather mask, Pox then 98%. BP and HR stable. EKG done at bedside. GIS INSTRUCTOR contacted and on unit to assess patient.
Patient to be transferred to IMU. Report called in to Tanya SOMMERS. All belongings packed on sent with patient for transfer.
[2024-05-15] MEDS: MORPHINE SULFATE 1 MG IV (20:17)
--- NOTE | 2024-05-15 20:48 | W.PN.UPDATE ---
Update Note
Progress Note Update
1944 asked to eval pt for respiratory distress and increase WOB
DOUGLAS has had a complicated hospital stay for sepsis, hematuria, poss endocarditis, cdiff and volume overload. Seems his biggest issue now is volume overload and attempts at diuresis has not been going well. Bumex increased today to 3mg (received at
approx 1800). No UOP yet. There have been discussions of possible HD (poor candidate) or poss hospice (no decision made).
Per daytime RN pt had been on room air all day. Lungs where a bit wheezy so breathing treatment was requested and given. After the treatment, pt pulse ox noted to be in low 80% and with increase WOB with assessory muscles being used. NRB placed. BP
and HR good.
On eval, pt with difficulty breathing, using accessory muscles audible crackles. Pt states he cannot bring up any secretions. On NRB initially maintaining around 88% but after a few min was able to come up to 97% but still increased WOB.
Plan: cxr, bipap(or HFNC) and transfer to imu
Discusses with pt if respiratory status continued to decline if he would want intubation. He states- 'yes i think so.'
Shruthi and son Nirmal updated on status and transfer.
Nirmal states to please notify him FIRST if pt continues to decline. He is POA. # [phone]
--- NOTE | 2024-05-15 21:03 | PTCARENOTE ---
Pt transferred from 4W to IMU due to respiratory change. Pt AAOx3. Pt placed on BiPAP appears to be tolerating well, spo2 96% RR20 even unlabored at this time. Pt has no complaints at this time. Call cobos within reach.
[2024-05-15] MEDS: LIPITOR 80 MG PO (22:05)
[2024-05-15] MEDS: LANTUS 0.15 UNITS SC (22:16)
[2024-05-15 22:23] LABS: Glucose - Point of Care 338 mg/dl (70-99)
[2024-05-16] VITALS (18 sets, daily range): BP systolic 98–131; BP diastolic 46–75; PULSE 2–85; BMI 29.3
--- NOTE | 2024-05-16 04:13 | PTCARENOTE ---
Pt was able to come off BiPAP for a 2 hour period of time SPO2 remained 93-94% on 6L. Pt requesting to go back on BiPAP saying 'felt better on'. Pt spo2 remaining at 97% on BiPAP. Pt has noncompliants at this time. Call cobos within reach. Assessment
care and vitals as charted.
[2024-05-16] MEDS: FIRVANQ 125 MG PO ×4 (05:13→23:35)
[2024-05-16 05:57] LABS: Hematocrit 24.6 % (39.0-52.0); Mean Corp Hgb Conc. 32.5 g/dL (33.0-37.0); Mean Corpuscular Hgb 23.9 pg (27.0-31.0); Mean Corpuscular Volume 73.4 fL (80.0-94.0); Platelet Count 119 10^3/uL (130-400); Red Blood Cell Count 3.35 10^6/uL (4.70-6.10); Red Cell Dist. Width 19.9 % (11.5-14.5); White Blood Cell Count 5.1 10^3/uL (4.8-10.8)
[2024-05-16 06:27] LABS: Blood Urea Nitrogen 114 mg/dl (9-20); Calcium 8.3 mg/dl (8.4-10.2); Carbon Dioxide 19 mmol/L (22-30); Chloride 100 mmol/L (98-107); Estimated Creatinine Clearance 22 ml/min; Glucose 286 mg/dl (70-99); Potassium 3.9 mmol/L (3.5-5.1); Sodium 132 mmol/L (135-145); eGFR 27.32
[2024-05-16] MEDS: DUONEB 3 ML INH ×3 (07:24→17:59)
[2024-05-16 08:20] LABS: Glucose - Point of Care 303 mg/dl (70-99)
[2024-05-16] MEDS: NOVOLOG FLEXPEN-MODERATE RESISTANCE 7 UNITS SC (08:35)
[2024-05-16] MEDS: NOVOLOG FLEXPEN 15 UNITS SC ×3 (08:35→17:40)
[2024-05-16] MEDS: ELIQUIS 2.5 MG PO ×2 (08:36→21:56)
[2024-05-16] MEDS: QUESTRAN 4 GRAM PO (08:36)
[2024-05-16] MEDS: COREG 3.125 MG PO ×2 (08:36→21:56)
[2024-05-16] MEDS: PROTONIX 20 MG PO (08:37)
[2024-05-16] MEDS: TAPAZOLE 5 MG PO (08:37)
[2024-05-16] MEDS: ASPIR LOW (ENTERIC COATED) 81 MG PO (08:37)
[2024-05-16] MEDS: MYCOSTATIN ORAL SUSPENSION 5 ML PO ×4 (08:37→22:01)
[2024-05-16] MEDS: BUMEX 3 MG IV ×2 (08:37→16:27)
[2024-05-16] MEDS: TYLENOL 650 MG PO (08:53)
--- NOTE | 2024-05-16 09:02 | W.PN.HOSP.TC ---
Today's Communication/Plan
-
BiPAP. IV antibiotics. Diuretics as needed.
Assessment / Plan
Assessment / Plan
Physical exam:
General: Acutely ill.
HEENT: Normocephalic, Atraumatic and Moist Mucous Membranes
Respiratory: Decreased breath sounds bilateral and some crackles more on the right side than the left; Negative Wheezes or Rhonchi
Cardiac: Regular Rhythm and S1/S2
GI: Soft, Nontender and Nondistended
Musculoskeletal: No Clubbing, No Cyanosis and No Edema
Neuro: Awake, Alert and Oriented
Psych: Calm
A/P:
#Acute hypoxic respiratory failure
Combination of volume overload and pneumonia
Continue antibiotic
BiPAP
Was able to titrate to 6 Lt of oxygen but unfortunately need to be back on BiPAP
Pulmonary consult-discussed with pulmonary via [place]
Patient critically ill and poor prognosis-->Lengthy discussion with patient and son and given current circumstances and condition recommended hospice care since he is a candidate for. Patient and family are having active discussions about and
patient will likely move forward with hospice enrollment. At the time of my evaluation patient wanted to continue full code. Discussed with nephrology as well who did not recommend hemodialysis. Noted cardiology recommendations as well and no
further cardiac recommendations at the moment. Will readdress CODE STATUS and plan of care later today. Complex situation overall.
# Sepsis with Strep Bacteremia, unclear source
Continue IV ceftriaxone 2 g daily likely 6 week course
Cervical MRI no�spinal epidural abscess. Transthoracic echo no vegetations.
TTE unrevealing, ID request ZACHARY since pt has PPM , ZACHARY now planned for Wednesday 05/16
Cespedes catheter exchanged this admission
No evidence of cholecystitis clinically.
ID on board
# C. diff colitis
started PO vancomycin
ID on board
# Upper extremity weakness likely related to cervical stenosis vs ?myasthenia gravis, power has improved
Appreciated neurology and neurosurgery consults
MRI cervical spine noted significant spinal stenosis. MRI brain unrevealing. Carotid Doppler US noted BL calcified vessels, but less than 50% bilateral internal carotid artery stenosis.
Continue aspirin
PT OT note indicated that pt is non-ambulatory at baseline, so no skilled PT warranted
Started high dose methylprednisolone (1 g IV) x 5 days per neuro
CPK noted to be negative (which r/o myositis)
Check Acetylcholine receptor antibodies per neuro
EMG per neuro
# Suspect hyperthyroidism
TSH < 0.02, FT4 at 7.70
Could arm weakness be related/contribute to hyperthyroidism?
started empiric methimazole 5 mg
recc outpt TFT in 4-6 weeks, informed
Amiodarone discontinued by card
# LENI on CKD 3
# suspect initial LENI prerenal with low BPs/ infection
# Now possibly cardiorenal syndrome with acute on chronic HFpEF
CXR noted with pulm edema
IV Bumex BID per renal
Monitor volume status
Renal following
# Anion gap Metabolic acidosis likely due to LENI on CKD
Renal following
# Hypokalemia, resolved
# Anemia
Continue to monitor hemoglobin closely
# Elevated LFTs, resolved
Resumed Lipitor 80 mg
# Hematuria, Resolved. Likely due to traumatic Cespedes catheter exchange and also underlying use of Eliquis
Resumed Eliquis 2.5 BID and aspirin
Monitor hemoglobin
# Hypotension, Improved
Off IV fluids
# Paroxysmal atrial fibrillation:
On rate control carvedilol 3.125 mg twice a day with holding parameters
IV Lopressor as needed
Amiodarone discontinued by card 2/2 hyperthyroidism
On anticoagulation Eliquis 2.5 mg twice a day
# Diabetes mellitus type 2:
hyperglycemia due to high dose steroid, suspect BG will improve with discontinuation of steroid
Lantus increased to 15 units HS
Aspart increased to 15 units AC
Cont moderate ISS coverage
# Hyperlipidemia:
Resumed statin
# CAD/PVD/CVA:
Continue anti-ischemic regimen
# Chronic pain syndrome/spinal stenosis/chronic narcotics dependence:
Continue fentanyl patch
IV Dilaudid as needed
# History of ulcerative colitis/GERD/GI bleed:
Monitor GI symptoms
# Thrombocytopenia has resolved
DVT prophylaxis: Eliquis 2.5 mg twice a day
CODE STATUS: Full code
Total Critical Care Time__40___ minutes. I was immediately available to the patient and staff. I personally examined, reviewed labs, diagnostic images/reports, interpretations, treatment plans, discussed patient care with other providers and
family or caregivers (if patient is unable to make decisions), entered orders as appropriate and documented the medical record.
Anticipated Discharge: 24 - 48 hours
Subjective/Interval History
-
Date of Service: May 16, 2024
Patient transferred to IMU due to respiratory distress and increased oxygen requirements. Looks frail.
Objective Data
-
Labs:
Laboratory Results
05/16/24
05:33
WBC 5.1
Hgb 8.0 L
Hct 24.6 L
Plt Count 119 L
Sodium 132 L
Potassium 3.9
Chloride 100
Carbon Dioxide 19 L
BUN 114 H*
Creatinine 2.3 H
Glucose 286 H
Calcium 8.3 L
Vital Signs:
Vital Signs
Temp Pulse Resp BP Pulse Ox
97.5 F 62 13 109/46 95
05/16/24 04:05 05/16/24 08:36 05/16/24 08:00 05/16/24 08:37 05/16/24 08:00
I&O
05/15/24 05/16/24 05/17/24
06:59 06:59 06:59
Intake Total 978 / 978 860 / 860
Output Total 575 / 575 725 / 725
Balance 403 / 403 135 / 135
--- NOTE | 2024-05-16 10:43 | CON.PUL ---
Consultation
Consultation Request
Date/Time Consultation Requested: 05/16/2024-9 AM
Date/Time Consultation Performed: 05/16/2024-9:30 AM
Requesting Provider: Hospitalist
Performing Provider: Dr. Beltran
Reason for Consultation: Shortness of breath hypoxemia
Medical History
-
Chief Complaint: Hypoxemia
History of Present Illness:
84-year-old male with a history of diabetes, PAF, CAD, ulcerative colitis, chronic pain syndrome admitted with sepsis, bacteremia, C. difficile colitis noted to have persistent hypoxemia and requiring BiPAP-pulmonary consulted for respiratory
failure 05/16/2024. Patient states that he has some chest congestion some difficulties mobilizing his secretions. He is tolerating BiPAP and states that it does help him. He denies any chest pain, chest tightness, hemoptysis, previous pulmonary
disease, abdominal pain, nausea, or increased weakness.
Past Medical History
Past Medical History: None (CAD/CABG/stents x 2. PAF. Ulcerative colitis. Diabetes. Heart failure preserved EF. Chronic lymphedema. Chronic pain. Chronic kidney disease-III. GERD. Hypertension. Bilateral ankle deformities.)
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 Tonsillectomy. Left total hip arthroplasty.)
Social History
Tobacco: Non-smoker
Alcohol: Occasional
Drug: None
Personal:
Living: With Family
Occupational Exposures: No known asbestos exposure
Environmental Exposures: No known tuberculosis exposure
Family History
Family History: Reviewed & Not Pertinent
Allergies / Home Medications
Allergies
Allergy/AdvReac Type Severity Reaction Status Date / Time
Sulfa (Sulfonamide Allergy Hives Verified 05/04/24 14:45
Antibiotics)
sulfasalazine Allergy mother Verified 05/04/24 14:45
states
hives
Home Medications
�Medication �Instructions �Recorded �Confirmed �Last Taken �Type
atorvastatin 80 mg tablet 80 mg PO DAILY@2030 High 03/30/23 05/04/24 06/22/23 20:30 History
Cholesterol
folic acid-vit B6-vit B12 2.5 1 tab PO DAILY Supplement 04/16/23 05/04/24 06/22/23 08:30 History
mg-25 mg-2 mg tablet (Folbic)
carvedilol 3.125 mg tablet 3.125 mg PO BID #60 tabs 04/17/23 05/04/24 06/23/23 08:30 Rx
amiodarone 200 mg tablet 200 mg PO DAILY Arrhythmia 05/04/23 05/04/24 06/23/23 08:30 History
acetaminophen 325 mg tablet 650 mg PO Q4HPRN PRN mild 06/22/23 05/04/24 06/22/23 12:02 History
pain/fever>100.4
bisacodyl 10 mg rectal suppository 10 mg IA DAILYPRN PRN 3 days no 06/22/23 05/04/24 Unknown History
bm, lactulose ineffective
fluticasone propionate 50 1 spray intranasal QPM Allergies 06/22/23 05/04/24 06/22/23 20:30 History
mcg/actuation nasal
spray,suspension
insulin lispro 100 unit/mL 0 - 12 sliding scale dose SC 06/22/23 05/04/24 06/22/23 17:30 History
subcutaneous pen (Humalog KwikPen TID@0730,1230,1730 Diabetes
(U-100) Insulin)
lactulose 20 gram/30 mL oral 20 g PO HSPRN PRN Constipation 06/22/23 05/04/24 Unknown History
solution
naloxone 4 mg/actuation nasal 4 mg intranasal DAILYPRN PRN 06/22/23 05/04/24 Unknown History
spray (Narcan) opioid overdose
pregabalin 75 mg capsule (Lyrica) 75 mg PO TID Pain 06/22/23 05/04/24 06/22/23 20:30 History
azathioprine 75 mg tablet 75 mg PO DAILY ulcerative colitis 09/14/23 05/04/24 Unknown History
apixaban 2.5 mg tablet (Eliquis) 2.5 mg PO BID #60 tabs 09/23/23 05/04/24 Unknown Rx
fentanyl 25 mcg/hr transdermal 1 patch transdermal Q72H Pain #1 ea 09/23/23 05/04/24 Unknown Rx
patch
tamsulosin 0.4 mg capsule 0.4 mg PO DAILY 30 days #30 caps 09/23/23 05/04/24 Unknown Rx
ipratropium 0.5 mg-albuterol 3 mg 3 ml inhalation R BID 11/14/23 05/04/24 Unknown History
(2.5 mg base)/3 mL nebulization Lung/Breathing Issues
soln
aspirin 81 mg tablet,delayed 81 mg PO DAILY #1 tab 11/27/23 05/04/24 Unknown Rx
release
bumetanide 0.5 mg tablet 0.5 mg PO DAILY Fluid 11/27/23 05/04/24 Unknown Rx
Retention/Swelling #0 tabs
insulin glargine 100 unit/mL 5 unit (0.05 mL) SC DAILY@2030 11/27/23 05/04/24 06/22/23 20:30 Rx
subcutaneous solution (Lantus Diabetes #0 mL
U-100 Insulin)
cholestyramine (with sugar) 4 gram 4 g PO DAILY High Cholesterol 05/04/24 05/04/24 Unknown History
powder for susp in a packet
(Questran)
diphenoxylate-atropine 2.5 1 tab PO DAILYPRN PRN diarrhea 05/04/24 05/04/24 Unknown History
mg-0.025 mg tablet
insulin lispro 100 unit/mL 5 unit SC TID Diabetes 05/04/24 05/04/24 Unknown History
subcutaneous pen (Humalog KwikPen
(U-100) Insulin)
ipratropium 0.5 mg-albuterol 3 mg 3 ml inhalation R Q6HPRN PRN cough 05/04/24 05/04/24 Unknown History
(2.5 mg base)/3 mL nebulization
soln
loperamide 2 mg tablet 2 mg PO Q6HPRN PRN diarrhea 05/04/24 05/04/24 Unknown History
metolazone 2.5 mg tablet 2.5 mg PO DAILY Pain 05/04/24 05/04/24 Unknown History
mineral oil 1 applic topical DAILY right foot 05/04/24 05/04/24 Unknown History
pantoprazole 20 mg tablet,delayed 20 mg PO DAILY Gastrointestinal 05/04/24 05/04/24 Unknown History
release Issue
therapeutic multivitamin 1 tab PO DAILY Supplement 05/04/24 05/04/24 Unknown History
Review of Systems
-
Unable to Obtain full review of systems at this time due to: Other (Per HPI)
Vitals / Labs / Diagnostic Testing
Vital Signs
Temp Pulse Resp BP Pulse Ox
97.6 F 62 13 109/46 95
05/16/24 07:15 05/16/24 08:36 05/16/24 08:00 05/16/24 08:37 05/16/24 08:00
Lab Data
05/16/24 05:33
05/16/24 05:33
Diagnostic Testing:
Physical Exam
-
Exam:
Well-nourished and well-developed in no apparent distress
HEENT-atraumatic, normocephalic
Neck-supple, no JVD, no bruit
Heart-regular rate and rhythm-no murmurs, rubs or gallops
Chest with diminished breath sounds, crackles, rhonchi, and no wheezes
Abdomen-soft, nontender, nondistended, no hepatosplenomegaly
Extremities-no cyanosis, AKA
Integument-intact, no rashes, lesions or ecchymosis
Neurology-alert and oriented, nonfocal motor and sensory exam
Assessment
-
84-year-old male with a history of diabetes, PAF, CAD, ulcerative colitis, chronic pain syndrome admitted with sepsis, bacteremia, C. difficile colitis noted to have new onset hypoxemia and requiring BiPAP an increased FiO2-pulmonary consulted for
respiratory failure 05/16/2024.
Respiratory decompensation likely volume and pneumonia/aspiration risk
Aspiration risk
Sepsis-catheter associated UTI
Bacteremia
C. difficile colitis
LENI on chronic kidney disease stage III
Hyperthyroid
Anion gap metabolic acidosis
Elevated LFTs
Hematuria-resolved
Proximal arm weakness and bilateral action hand tremor-myasthenia gravis or Eaton-Lambert myasthenic syndrome are possibilities
Anemia-microcytic
Metabolic acidosis
Hyponatremia
Hyperglycemia
Mild thrombocytopenia
Conditions present prior to admission:
CAD/CABG/stents x 2.
PAF.
Ulcerative colitis.
Diabetes.
Heart failure preserved EF.
Chronic lymphedema.
Chronic pain.
Chronic kidney disease-III.
GERD.
Hypertension.
Bilateral ankle deformities.
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 Tonsillectomy. Left total hip arthroplasty.
Plan
Respiratory decompensation likely a combination of volume as well as progressive pneumonia
Aspiration risk
Speech therapy evaluation
Head of bed elevation
Nebulizers
Deep suction
BiPAP as needed
Follow ABG if mental status declines
Intubated mechanically ventilated-if needed-for now full code
Sputum culture
Empiric antibiotics-consider broadening to cover nosocomial and aspiration sources
Follow radiographically
Neurology following-correspondence reviewed
EMG
Nephrology following-correspondence reviewed
Diuresis as tolerated
Monitor renal function, electrolytes, intake/output, lower extremity edema and weight
Replace electrolytes as needed
Transesophageal echocardiogram on hold
Cardiology following-correspondence reviewed
Diuresis
DVT prophylaxis-on Eliquis
Tenuous respiratory status-goals of care discussion ongoing
Diagnostic data:
Chest x-ray 05/04/2024-NAD
Chest x-ray 05/13/2024-mild cardiomegaly, mild interstitial edema with left basilar atelectasis
Chest x-ray 05/15/2024-progressive severe right upper lobe pneumonia
Echocardiogram 05/06/2024-EF 40-45%, stage II diastolic dysfunction, trace mitral regurgitation, severe biatrial dilation, PA systolic not estimated,
Data Reviewed
-
EKG: Report reviewed by me
Radiology: Image personally visualized and interpreted and Report reviewed by me
CT Scan: Report reviewed by me
Medical Tests (Nuc Med, Echo etc): Report reviewed by me
Labs: Labs reviewed by me
Old Records: Reviewed
Total Time Spent with Patient (in minutes): 55
[2024-05-16] MEDS: FLUSH (NSS) 1 FLUSH IV ×2 (10:45→10:46)
[2024-05-16] MEDS: STERILE WATER FOR INJECTION 20 ML IV (10:46)
[2024-05-16] MEDS: ROCEPHIN 2000 MG IV (10:46)
--- NOTE | 2024-05-16 10:51 | W.PN.UPDATE ---
Addendum entered and electronically signed by Maria G Abrams MD 05/16/24 11:28:
I saw and examined the patient.
The [employer] C[employer] Hand's note was reviewed and I agree with the note.
Comment: Spoke to his son at the bedside they are considering hospice. I have offered support. Think this is reasonable given multiple medical problems and frailty. At this time no further cardiac recommendations. We will continue to follow and
if patient does not go on hospice would recommend an echo in 4 weeks.
Original Note:
Update Note
Progress Note Update
Overnight events noted, patient with increased SOB and was placed on BiPAP and moved to IMU. Patient's son is his POA and hospice is being considered. From a cardiac standpoint, patient is not a candidate for [facility] and if patient does not get placed
on hospice then would repeat transthoracic echo in 4 weeks. Will follow remotely as goals of care are discussed throughout the day.
--- NOTE | 2024-05-16 11:54 | W.PN.NEPH.PH ---
Today's Communication / Plan
-
discussions of hospice
cotn markx as is
Assessment/Plan
-
Assessment:
Sepsis with Strept Bacteremia
Upper extremity weakness
Hematuria:? Traumatic Zaragoza catheter exchange and also underlying use of Eliquis
Hypotension
LENI on CKD-baseline cr 1-1.3
hypokalemia
Abnormal thyroid test
Anemia
Acute on Chronic thrombocytopenia
Paroxysmal atrial fibrillation
Diabetes mellitus type 2
Hyperlipidemia
Chronic HFpEF
CAD/PVD/CVA
Chronic pain syndrome/spinal stenosis/chronic narcotics dependence
History of ulcerative colitis/GERD/GI bleed
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
CAD/PA/CABG 2009
Chronic LBBB
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
Chronic right lower extremity lymphedema
Hx CVA per CT head
Hx subdural hematoma after mechanical fall
Hx orthostatic hypotension/HTN
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
Chronic pain syndrome secondary to spinal stenosis on chronic opiate patch
GERD/Hx GI bleed
Hx ulcerative colitis- azathioprine
Anxiety
Chronic ambulatory dysfunction with chronic foot and ankle deformities
Hypoalbuminemia
Plan:
A/w UE weakness, sepsis and group C bacteremia
cr slightly better at 2.3, barely non oliguric
however worsening azotemia on diuretics and steroids (now off)
no change in met acidosis
wt is down but not sure is accurate given low UOP
case reviewed with pt, son and primary
spoke with pt in detail that due to his fail status and multiple medical issues he is not likely a candidate for HD
dialysis will severely impair his QOL which is already poor to begin with
(see also discussion on 05/[address] Diodato)
he is in agreement with hospice , family had started discussion already
He also understands full code vs DNR status
would cont bumex same dose for now
d/w nursing
-
-
Date of Service: May 16, 2024
CC / HPI / ROS
-
Chief Complaint:
LENI
History of Present Illness:
Creatinine slightly down to 2.3, BUN now up over 114, na low 132 with hyperglycemia
Hemodynamically soft BPs
barely non oliguric with zaragoza
on 6lit of O2
Review of Systems:
no sob at rest
no n/v
no fevers
Urine output only 720cc
Labs
-
Labs:
WBC 5.1 10^3/uL (4.8-10.8) 05/16/24 05:33
RBC 3.35 10^6/uL (4.70-6.10) L 05/16/24 05:33
Hgb 8.0 g/dL (13.0-18.0) L 05/16/24 05:33
Hct 24.6 % (39.0-52.0) L 05/16/24 05:33
Plt Count 119 10^3/uL (130-400) L 05/16/24 05:33
Sodium 132 mmol/L (135-145) L 05/16/24 05:33
Potassium 3.9 mmol/L (3.5-5.1) 05/16/24 05:33
Chloride 100 mmol/L (98-107) 05/16/24 05:33
Carbon Dioxide 19 mmol/L (22-30) L 05/16/24 05:33
BUN 114 mg/dl (9-20) H* 05/16/24 05:33
Creatinine 2.3 mg/dL (0.7-1.3) H 05/16/24 05:33
eGFR 27.32 12/02/24 05:33
Glucose 286 mg/dl (70-99) H 05/16/24 05:33
Calcium 8.3 mg/dl (8.4-10.2) L 05/16/24 05:33
Shy-C-Htsmtfadmag Pept 56309 pg/ml 05/13/24 10:19
Albumin 2.8 g/dl (3.5-5.0) L 05/13/24 10:19
Physical Exam
-
Vital Signs:
Vital Signs
Temp Pulse Resp BP Pulse Ox
97.6 F 62 13 109/46 95
05/16/24 07:15 05/16/24 08:36 05/16/24 08:00 05/16/24 08:37 05/16/24 08:00
Cardiovascular:: Regular rate and rhythm
Respiratory:: Bilateral: Coarse
Lung Excursion:: Abnormal
Abdomen:: Nontender and Soft
Extremity Edema:: +2: Right:
Zaragoza Catheter: Yes
Other Findings::
left AKA
--- NOTE | 2024-05-16 12:14 | CM ---
Patient from [facility] with Hx including CVA and left AKA. O2 6L. Enhanced precautions. Receiving IV Bumex, IV Abx. Seen by wound care nurse. PT & OT notes; Therapy not warranted.
CM Consult: Hospice
Met with patient, Nara and son Nirmal;
explained hospice philosophy & benefits.
Son shares that patient's ex- daughter in law Dominique works as Hospice nurse and they would therefore like Hospice -patient and agreed.
Family agrees to patient returning to [facility] tomorrow by ambulance and are aware of noon transport time. IMM completed.
Messages with Dominique Munroe and Christine Marie, Hospice; referral placed. Their nurse Trinidad will be able to see the patient at [facility] tomorrow.
Spoke with Makayla, [facility]; they are able to accept the patient tomorrow with Hospice and agree with noon transport time. Makayla made aware of O2 6L and she requested Hospice order the high flow concentrator---> message sent to
Melba at [facility]. The phone for report to [address] is [phone], fax [phone].
[facility] DNR Form on chart for MD signature.
Plan return to [facility] tomorrow by ambulance at noon, with Hospice.
[2024-05-16 12:21] LABS: Glucose - Point of Care 280 mg/dl (70-99)
[2024-05-16] MEDS: NOVOLOG FLEXPEN-MODERATE RESISTANCE 5 UNITS SC (12:44)
--- NOTE | 2024-05-16 13:56 | PTCARENOTE ---
Patient complaining of increased SOB on 6L NC with SpO2 ranging from 89-92%. Patient has increased work of breathing. Dr. Mckeon made aware. BiPAP ordered for patient. Respiratory to bedside and put BiPAP on patient. Neb given by respiratory. Patient
reports that he 'feels better with mask and more comfortable'. SpO2 on BiPAP 96-100%. Care ongoing at this time.
--- NOTE | 2024-05-16 14:13 | HOSPNOTE ---
Met with patient, Shruthi and son Nirmal at bedside. After long discussion abut goals of care, hospice services and philosophy, patient has decided to sign on to Hospice. plan to return to [place] with Hospice tomorrow 05/17. Much education and
emotional support given.
--- NOTE | 2024-05-16 14:14 | W.PN.ID1 ---
Date of Service
Date of Service: May 16, 2024
Today's Communication
Patient to transition to hospice tomorrow
Would stop ceftriaxone at that time, can continue oral vancomycin 125 mg PO QID for 7 more days for comfort.
Would treat any fevers with tylenol
ID service will no longer actively follow this patient please recall for further questions
Assessment / Plan
Bilateral Upper Extremity Weakness
- no osteo or epidural abscess seen on MRI imaging
- central canal stenosis
Group C Strep bacteremia
-Repeat blood cultures no growth
LENI - possible progression to ESRD
C. diff diarrhea
Hx Pacemaker
Chronic Thrombocytopenia
Dm2
Patient to transition to hospice tomorrow
Would stop ceftriaxone at that time, can continue oral vancomycin 125 mg PO QID for 7 more days for comfort.
Would treat any fevers with tylenol
ID service will no longer actively follow this patient please recall for further questions
����������������������������������������������������������
Chief Complaint
-: Bacteremia
Subjective / Review of Systems
afebrile
bp stable
required bipap yesterday for increased work of breathing
family and patient have decided to transition to hospice tomorrow
Vital Signs / Physical Exam
Vital Signs
Vital Signs
Temp Pulse Resp BP Pulse Ox
97.7 F 60 18 109/46 95
05/16/24 11:43 05/16/24 12:00 05/16/24 12:00 05/16/24 08:37 05/16/24 12:00
Physical Exam
Constitutional: Acutely Ill and Chronically Ill
Cardiovascular: Regular Rate and S1/S2; Negative Murmur or Rub
Pulmonary: Clear and Symmetric; Negative Wheezes or Rales
Gastrointestinal: Soft, Non Tender, Non Distended and Normal Bowel Sounds
Skin: Warm and Dry; Negative Rash or Jaundice
Lines: Other (pacemaker - no erythema, warmth, swelling or tenderness)
Objective Data
Lab Data
Lab Results
05/16/24 05:33
05/16/24 05:33
ESR 33 mm/hour (0-20) H 05/09/24 04:48
Estimated Creat Clear 22 ml/min 05/16/24 05:33
Lactic Acid Cancelled 05/05/24 06:23
Total Bilirubin 1.1 mg/dl (0.2-1.3) 05/13/24 10:19
AST 41 U/L (17-59) 05/13/24 10:19
ALT 44 U/L (0-50) 05/13/24 10:19
Alkaline Phosphatase 141 U/L (38-126) H 05/13/24 10:19
Most recent labs reviewed.
Micro Results:
05/06/24 15:42 Blood Culture - Final
Blood/Venous No Growth - Final Report
05/06/24 15:41 Blood Culture - Final
Blood/Venous No Growth - Final Report
05/09/24 12:17 Salmonella/Shigella Culture - Final
Feces/Stool No Salmonella, Shigella, Aeromonas or Plesiomonas species
isolated.
Campylobacter Culture - Final
No Campylobacter species isolated.
Shiga Toxin Test - Final
No E. coli Shiga Toxin 1 or 2 detected.
05/09/24 12:17 C. difficile GDH Antigen & Toxins - Final
Feces/Stool Toxigenic C.difficile Positive
- Final
Negative for Norovirus GI and GII.
05/04/24 15:12 Blood Culture - Final
Blood/Venous Group C Streptococcus
Gram Stain - Final
05/04/24 15:21 Blood Culture - Final
Blood/Venous Group C Streptococcus
Gram Stain - Final
05/04/24 15:12 Urine Culture - Final
Urine
05/04/24 20:10 MRSA Screen - Final
Nose No Methicillin Resistant Staphylococcus aureus isolated.
Imaging:
05/06/2024 MRI cervical spine: There is reversal of cervical lordosis. Multilevel degenerative disc disease is noted. No evidence of discitis or osteomyelitis. No epidural abscess noted.
05/06/2024 CT head without contrast: No acute intracranial abnormality noted. A small right mastoid effusion is seen.
05/04/2024 CT abdomen/pelvis without contrast: Cholelithiasis with gallbladder wall thickening and some very cholecystic fluid is noted, raising the possibility for acute cholecystitis. Splenomegaly is seen. There is mild urinary bladder wall
thickening with a Cespedes catheter in place. Please see full dictation for additional detail.
Cardiac Imaging:
05/06/2024 ECHO (TTE): Normal left ventricular size, with mildly reduced systolic function, EF approximately 40%. Stage II diastolic dysfunction is noted. Right ventricle is normal. Pacemaker wires noted in the right ventricle. There is severe
biatrial dilatation. There is mild mitral valve regurgitation. No intracardiac mass or thrombus formation is seen.
[2024-05-16 17:27] LABS: Glucose - Point of Care 224 mg/dl (70-99)
[2024-05-16] MEDS: NOVOLOG FLEXPEN-MODERATE RESISTANCE 3 UNITS SC (17:40)
--- NOTE | 2024-05-16 17:54 | PTCARENOTE ---
Patient AOx3. Patient forgetful at times. a paced with BBB, first degree, and prolonged QT on monitor. Patient incontinent to stool. Chronic zaragoza draining yellow urine. Scrotal edema present. Generalized anasarca edema, B/L arm edema, and R lower
extremity edema noted. L AKA. Assist x2 for q2 turns. Call cobos within reach, bed in lowest position, and wheels locked.
[2024-05-16] MEDS: LIPITOR 80 MG PO (21:56)
[2024-05-16] MEDS: DURAGESIC 25 MCG/HR PATCH 1 PATCH TRANSDERM (22:00)
--- NOTE | 2024-05-16 22:00 | PTCARENOTE ---
Pt received from previous RN. Family at bedside. Pt AAOx3. [place], wearing B/L hearing aides. Pt is A paced, with BBB, and prolonged QT. Generalized anasarca, b/l UE edema, scrotal. pt remains with chronic zaragoza, yellow urine. Inc of . Hs oral care
preformed. Pt on bipap, tolerating, 05/19. Call light in reach, assessment as documented, safe environment maintained.
[2024-05-16 23:29] LABS: Glucose - Point of Care 228 mg/dl (70-99)
[2024-05-16] MEDS: LANTUS 0.15 UNITS SC (23:34)
[2024-05-17] VITALS: BP 115/69
[2024-05-17 02:00] VITALS: BP 115/61
[2024-05-17 02:42] VITALS: PULSE 2; PULSE 65
[2024-05-17 04:00] VITALS: BP 95/61
[2024-05-17 06:00] VITALS: BP 99/56
[2024-05-17] MEDS: DUONEB 3 ML INH (07:45)
[2024-05-17] MEDS: FIRVANQ 125 MG PO (07:52)
[2024-05-17 07:53] LABS: Glucose - Point of Care 160 mg/dl (70-99)
--- NOTE | 2024-05-17 07:55 | W.PN.HOSP.TC ---
Today's Communication/Plan
-
Discharge planning today
Assessment / Plan
Assessment / Plan
Physical exam:
General: Acutely ill.
HEENT: Normocephalic, Atraumatic and Moist Mucous Membranes
Respiratory: Decreased breath sounds bilateral and some crackles; Negative Wheezes or Rhonchi
Cardiac: Regular Rhythm and S1/S2
GI: Soft, Nontender and Nondistended
Musculoskeletal: No Clubbing, No Cyanosis and No Edema
Neuro: Awake, Alert and Oriented, B/L UE weakness
Psych: Calm
A/P:
Today on 05/17:
Patient has agreed to go on hospice
Started on morphine and Ativan as needed
He has been taking his home medications but can discontinue now with involvement in hospice upon discharge
Patient and family agreeable with plan
No IV antibiotics and no aggressive interventions
Plan to discharge to hospice facility today
Prior to today:
#Acute hypoxic respiratory failure
Combination of volume overload and pneumonia
Continue antibiotic
BiPAP
Was able to titrate to 6 Lt of oxygen but unfortunately need to be back on BiPAP
Pulmonary consult-discussed with pulmonary via [facility]
Patient critically ill and poor prognosis-->Lengthy discussion with patient and son and given current circumstances and condition recommended hospice care since he is a candidate for. Patient and family are having active discussions about and
patient will likely move forward with hospice enrollment. At the time of my evaluation patient wanted to continue full code. Discussed with nephrology as well who did not recommend hemodialysis. Noted cardiology recommendations as well and no
further cardiac recommendations at the moment. Will readdress CODE STATUS and plan of care later today. Complex situation overall. After reevaluation patient agreed to DNR and to hospice care.
# Sepsis with Strep Bacteremia, unclear source
Continue IV ceftriaxone 2 g daily likely 6 week course
Cervical MRI no�spinal epidural abscess. Transthoracic echo no vegetations.
TTE unrevealing, ID request ZACHARY since pt has PPM , ZACHARY now planned for Wednesday 05/16
Cespedes catheter exchanged this admission
No evidence of cholecystitis clinically.
ID on board
# C. diff colitis
started PO vancomycin
ID on board
# Upper extremity weakness likely related to cervical stenosis vs ?myasthenia gravis, power has improved
Appreciated neurology and neurosurgery consults
MRI cervical spine noted significant spinal stenosis. MRI brain unrevealing. Carotid Doppler US noted BL calcified vessels, but less than 50% bilateral internal carotid artery stenosis.
Continue aspirin
PT OT note indicated that pt is non-ambulatory at baseline, so no skilled PT warranted
Started high dose methylprednisolone (1 g IV) x 5 days per neuro
CPK noted to be negative (which r/o myositis)
Check Acetylcholine receptor antibodies per neuro
EMG per neuro
# Suspect hyperthyroidism
TSH < 0.02, FT4 at 7.70
Could arm weakness be related/contribute to hyperthyroidism?
started empiric methimazole 5 mg
recc outpt TFT in 4-6 weeks, informed
Amiodarone discontinued by card
# LENI on CKD 3
# suspect initial LENI prerenal with low BPs/ infection
# Now possibly cardiorenal syndrome with acute on chronic HFpEF
CXR noted with pulm edema
IV Bumex BID per renal
Monitor volume status
Renal following
# Anion gap Metabolic acidosis likely due to LENI on CKD
Renal following
# Hypokalemia, resolved
# Anemia
Continue to monitor hemoglobin closely
# Elevated LFTs, resolved
Resumed Lipitor 80 mg
# Hematuria, Resolved. Likely due to traumatic Cespedes catheter exchange and also underlying use of Eliquis
Resumed Eliquis 2.5 BID and aspirin
Monitor hemoglobin
# Hypotension, Improved
Off IV fluids
# Paroxysmal atrial fibrillation:
On rate control carvedilol 3.125 mg twice a day with holding parameters
IV Lopressor as needed
Amiodarone discontinued by card 07/17 hyperthyroidism
On anticoagulation Eliquis 2.5 mg twice a day
# Diabetes mellitus type 2:
hyperglycemia due to high dose steroid, suspect BG will improve with discontinuation of steroid
Lantus increased to 15 units HS
Aspart increased to 15 units AC
Cont moderate ISS coverage
# Hyperlipidemia:
Resumed statin
# CAD/PVD/CVA:
Continue anti-ischemic regimen
# Chronic pain syndrome/spinal stenosis/chronic narcotics dependence:
Continue fentanyl patch
IV Dilaudid as needed
# History of ulcerative colitis/GERD/GI bleed:
Monitor GI symptoms
# Thrombocytopenia has resolved
DVT prophylaxis: Eliquis 2.5 mg twice a day
CODE STATUS: DNR
Anticipated Discharge: Today
Subjective/Interval History
-
Date of Service: May 17, 2024
No new complaints today.
Objective Data
-
Vital Signs:
Vital Signs
Temp Pulse Resp BP Pulse Ox
96.7 F L 62 16 115/61 94
05/17/24 07:00 05/17/24 07:47 05/17/24 07:47 05/17/24 02:00 05/17/24 02:46
I&O
05/16/24 05/17/24 05/18/24
06:59 06:59 06:59
Intake Total 860 / 860
Output Total 725 / 725 1150 / 1150
Balance 135 / 135 -1150 / -1150
[2024-05-17 08:00] VITALS: BP 114/66
[2024-05-17] MEDS: NOVOLOG FLEXPEN-MODERATE RESISTANCE 1 UNITS SC (08:00)
[2024-05-17] MEDS: TAPAZOLE 5 MG PO (08:52)
[2024-05-17] MEDS: MYCOSTATIN ORAL SUSPENSION 5 ML PO (08:52)
[2024-05-17] MEDS: ELIQUIS 2.5 MG PO (08:52)
[2024-05-17] MEDS: BUMEX 3 MG IV (08:53)
[2024-05-17] MEDS: PROTONIX 20 MG PO (08:53)
[2024-05-17] MEDS: ASPIR LOW (ENTERIC COATED) 81 MG PO (08:53)
[2024-05-17] MEDS: COREG 3.125 MG PO (08:59)
[2024-05-17 09:17] VITALS: BMI 29.3
--- NOTE | 2024-05-17 09:54 | W.DCSUMMARY ---
Discharge Summary
Discharge Data
Date of Admission: 05/04/24
Date of Discharge: 05/17/24
-
Pending Results: No
Hospital Course
Patient 84 years old male with history of chronic urinary retention with chronic Zaragoza, left AKA, CAD, A-fib, CHF, ulcerative colitis, CKD, hypertension, pancytopenia, to the hospital with fever and sepsis. Patient had evidence of group C
streptococcus bacteremia. He was treated with IV antibiotics. ID consulted. He also had bilateral upper extremity weakness that was out of proportion from infection standpoint. He was evaluated by neurology and neurosurgery on that regard.
While there was severe spinal stenosis there was not a clear etiology of his symptomatology. He was started empirically on IV high doses of steroids without significant improvement. Patient also had LENI with worsening renal failure while
hospitalized. Nephrology discussed with patient and family and he was not a great candidate for hemodialysis and it seems that he was heading to that direction. Patient had a prolonged hospitalization. After discussion with patient and family,
patient decided on hospice care given his poor prognosis overall and limited options. Hospice was consulted. Comfort medications with morphine and Ativan as needed was initiated. His home medications were continued but plan to discontinue once he
is enrolled in hospice upon discharge. Otherwise, patient will be discharged to hospice at [facility] today.
Discharge duration: 37 minutes
Discharge Plan
-
Patient Disposition: Home with Hospice
Discharge Diagnosis/Procedures: Group C streptococcus bacteremia. Sepsis. Acute kidney injury. Bilateral upper extremity weakness. Clostridium difficile diarrhea.
Diet: Regular
Activity: As tolerated
Wound Care: Wound Care Instructions
Sacrum-clean with saline or soap and water, silicone border foam, change q 3 days and prn loosened dressing. If foam ineffective, apply zinc barrier ointment (i.e. Calazime) TID instead.
R lateral calf wound-clean with Vashe wound cleanser, alginate, silicone border foam, change daily and prn drainage (add adaptic prior to alginate prn adherent dressing).
R heel-protective foam dressing, change q 3 days and prn loosened dressing.
R knee high Tubigrip as tolerated; may remove q hs; reapply q am.
Air mattress
Roho wheelchair cushion.
Roho air chair cushion under RLE to off load calf and heel.
Follow up with vascular surgeon.
Follow up with wound vision care associate or at wound care center if needed, call for an appointment.
Activity Restrictions/Additional Instructions:
Your zaragoza catheter needs to be exchanged every 4 weeks
R dorsal foot purple ecchymotic area-clean with saline, no sting barrier wipe (allow to dry), silicone border foam, change q 3 days and prn loosened dressing.
R knee high Tubigrip as tolerated (size G); remove q hs; reapply q am.
Scrotal abrasions-clean with saline or nedra cleansing wipe, Zinc barrier ointment BID and prn incontinence; cover/tuck with Vaseline gauze and ABD pad prn added protection.
Referrals:
Marco Antonio Payne DO [Family Provider] - in less than 1 week
Prescriptions:
New
vancomycin 50 mg/mL Recon Soln
125 mg PO Q6 7 Days Qty: 0 0RF
methimazole 5 mg Tablet
5 mg PO DAILY 30 Days Qty: 0 0RF
morphine 10 mg/5 mL solution
5 mg PO Q4H PRN (Reason: pain or sob) Qty: 100 0RF
lorazepam [Ativan] 1 mg tablet
1 mg PO TID PRN (Reason: Anxiety) Qty: 14 0RF
Continued
atorvastatin 80 MG tablet
80 mg PO DAILY@2029
Folbic 2.5-25-2 mg Tablet
1 tab PO DAILY
carvedilol 3.125 mg Tablet
3.125 mg PO BID Qty: 60 0RF
amiodarone 200 mg tablet
200 mg PO DAILY
acetaminophen 325 mg Tablet
650 mg PO Q4HPRN PRN (Reason: mild pain/fever>100.4)
bisacodyl 10 mg Suppository
10 mg [place] DAILYPRN PRN (Reason: 3 days no bm, lactulose ineffective)
fluticasone propionate 50 mcg/actuation [place],Suspension
1 spray INTRANASAL QPM
insulin lispro [Humalog KwikPen Insulin] 100 unit/mL Insulin Pen
0 - 12 sliding scale dose SC TID@0730,1230,1730
Rx Instructions:
if 151-200= 2 units; 201-250= 4 units; 251-300= 6 units; 301-350= 8 units; 351-400= 10 units; >400=12 units
pregabalin [Lyrica] 75 mg Capsule
75 mg PO TID
lactulose 20 gram/30 mL Solution
20 g PO HSPRN PRN (Reason: Constipation)
naloxone [Narcan] 4 mg/actuation [place],Non-Aerosol
4 mg INTRANASAL DAILYPRN PRN (Reason: opioid overdose)
azathioprine 75 mg Tablet
75 mg PO DAILY
tamsulosin 0.4 mg Capsule
0.4 mg PO DAILY 30 Days Qty: 30 0RF
Eliquis 2.5 mg Tablet
2.5 mg PO BID Qty: 60 0RF
fentanyl 25 mcg/hr patch 72 hour
1 patch transdermal Q72H Qty: 1 0RF
ipratropium-albuterol 0.5 mg-3 mg(2.5 mg base)/3 mL Solution For Nebulization
3 ml INHALATION R BID
insulin glargine [Lantus U-100 Insulin] 100 unit/mL Solution
5 unit SC DAILY@2029 Qty: 0 0RF
bumetanide 0.5 mg tablet
0.5 mg PO DAILY Qty: 0 0RF
aspirin 81 mg Tablet,Delayed Release (Dr/Ec)
81 mg PO DAILY Qty: 1 0RF
metolazone 2.5 mg Tablet
2.5 mg PO DAILY
ipratropium-albuterol 0.5 mg-3 mg(2.5 mg base)/3 mL Solution For Nebulization
3 ml INHALATION R Q6HPRN PRN (Reason: cough)
loperamide 2 mg Tablet
2 mg PO Q6HPRN PRN (Reason: diarrhea)
diphenoxylate-atropine 2.5-0.025 mg Tablet
1 tab PO DAILYPRN PRN (Reason: diarrhea)
therapeutic multivitamin Tablet
1 tab PO DAILY
pantoprazole 20 mg Tablet,Delayed Release (Dr/Ec)
20 mg PO DAILY
mineral oil Oil
1 applic TOPICAL DAILY
insulin lispro [Humalog KwikPen Insulin] 100 unit/mL Insulin Pen
5 unit SC TID
cholestyramine (with sugar) [Questran] 4 gram Powder In Packet
4 g PO DAILY
Discharge Orders:
Discharge Patient (As Directed); Ordered 05/17/24
Ordered By: Washington Mckeon
Discharge Date and Time
Discharge Date/Time: 05/17/24 12:48
Print Language: UKRAINIAN
--- NOTE | 2024-05-17 10:13 | W.PN.PUL.V3 ---
Today's Communication / Plan
-
Antibiotics
Oxygen
Comfort a priority
Hospice evaluation
Pulmonary will sign off-please call with questions
Assessment
-
84-year-old male with a history of diabetes, PAF, CAD, ulcerative colitis, chronic pain syndrome admitted with sepsis, bacteremia, C. difficile colitis noted to have new onset hypoxemia and requiring BiPAP an increased FiO2-pulmonary consulted for
respiratory failure 05/16/2024.
Respiratory decompensation likely volume and pneumonia/aspiration risk
Aspiration risk
Sepsis-catheter associated UTI
Bacteremia
C. difficile colitis
LENI on chronic kidney disease stage III
Hyperthyroid
Anion gap metabolic acidosis
Elevated LFTs
Hematuria-resolved
Proximal arm weakness and bilateral action hand tremor-myasthenia gravis or Eaton-Lambert myasthenic syndrome are possibilities
Anemia-microcytic
Metabolic acidosis
Hyponatremia
Hyperglycemia
Mild thrombocytopenia
Conditions present prior to admission:
CAD/CABG/stents x 2.
PAF.
Ulcerative colitis.
Diabetes.
Heart failure preserved EF.
Chronic lymphedema.
Chronic pain.
Chronic kidney disease-III.
GERD.
Hypertension.
Bilateral ankle deformities.
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 Tonsillectomy. Left total hip arthroplasty.
Plan
Respiratory decompensation likely a combination of volume as well as progressive pneumonia and patient with significant aspiration risk
Aspiration risk
Speech therapy evaluation on hold due to transitioning to hospice
Head of bed elevation
Nebulizers
Deep suction as needed
BiPAP as needed
Follow ABG if mental status declines
Intubated mechanically ventilated-if needed-for now full code
Sputum culture
Empiric antibiotics-consider broadening to cover nosocomial and aspiration sources
Follow radiographically
Infectious disease following-correspondence reviewed
Neurology following-correspondence reviewed
EMG
Nephrology following-correspondence reviewed
Diuresis as tolerated
Monitor renal function, electrolytes, intake/output, lower extremity edema and weight
Replace electrolytes as needed
Transesophageal echocardiogram on hold
Cardiology following-correspondence reviewed
Diuresis
DVT prophylaxis-on Eliquis
Tenuous respiratory status-goals of care discussion ongoing-patient considering hospice-pulmonary will sign off-please call with questions
Diagnostic data:
Chest x-ray 05/04/2024-NAD
Chest x-ray 05/13/2024-mild cardiomegaly, mild interstitial edema with left basilar atelectasis
Chest x-ray 05/15/2024-progressive severe right upper lobe pneumonia
Echocardiogram 05/06/2024-EF 40-45%, stage II diastolic dysfunction, trace mitral regurgitation, severe biatrial dilation, PA systolic not estimated,
Subjective Data
-
Date of Service:
Date of Service: May 17, 2024
Chief Complaint: Pulmonary Follow Up and Dyspnea Follow Up
Subjective:
Alert, no complaints of shortness of breath, nonproductive cough, no chest pain or abdominal pain
Review of Systems
General: Other (Per HPI)
Objective Data
Data Reviewed
Vital Signs / I&O:
Vital Signs
Temp Pulse Resp BP Pulse Ox
96.7 F L 67 19 114/66 93
05/17/24 07:00 05/17/24 08:59 05/17/24 08:00 05/17/24 08:59 05/17/24 06:00
Intake and Output
05/16/24 05/17/24 05/18/24
06:59 06:59 06:59
Intake Total 860 / 860
Output Total 725 / 725 1150 / 1150 350 / 350
Balance 135 / 135 -1150 / -1150 -350 / -350
SaO2: 93
Nasal Cannula flow liters per minute: 6
Physical Exam
General: Respiratory Distress (n) and Comfortable
HEENT: Normocephalic, Anicteric and Moist Mucous Membranes
Cardiovascular: Regular Rhythm and Murmur
Respiratory: Wheeze, Crackles, Rhonchi (Expiratory), Non-Labored Respirations, Accessory Resp Muscle Use (n) and Stridor (n)
GI: Soft, Non Distended and Non Tender
Neurology: Awake, Alert and No Motor Deficits
Skin: Warm, Good Color, Cyanosis (n), Jaundice (n) and Rash
Labs/Micro/Reports
Lab Data
05/16/24 05:33
05/16/24 05:33
--- NOTE | 2024-05-17 10:25 | PTCARENOTE ---
Plan for pt to d.c. to [facility] with hospice. Report given to TOOTIE Kyle
--- NOTE | 2024-05-17 10:43 | CM ---
Patient from [facility] with Hx including CVA and left AKA. O2 6L. Enhanced precautions - C diff positive.
Spoke with Jerod, s [facility]; they are able to accept the patient today, are aware of isolation precautions and need for O2 6L. Coordinated contact info for Jerod with Hospice nurse [facility] who will be seeing the patient today. The
phone for report to [address] is [phone], fax [phone].
Spoke with [facility]; she will contact [facility] to ensure high flow O2 concentrator will be delivered in time today. She will be seeing the patient this afternoon at [facility].
As per prior CM notes from 05/16/24, patient and family had agreed with d/c plans for return to [facility] today by ambulance at noon with Hospice. IMM completed yesterday.
Plan return to [facility] today by ambulance at noon, with Hospice.
[2024-05-17 11:28] LABS: Glucose - Point of Care 228 mg/dl (70-99)
[2024-05-17] MEDS: NOVOLOG FLEXPEN SC (11:36)
[2024-05-17] MEDS: FLUSH (NSS) IV ×2 (11:37→11:43)
[2024-05-17] MEDS: NOVOLOG FLEXPEN-MODERATE RESISTANCE 3 UNITS SC (11:38)
[2024-05-17] MEDS: NOVOLOG FLEXPEN 15 UNITS SC (11:38)
[2024-05-17] MEDS: STERILE WATER FOR INJECTION 20 ML IV (11:41)
[2024-05-17] MEDS: ROCEPHIN 2000 MG IV (11:41)
[2024-05-17] MEDS: FLUSH (NSS) 1 FLUSH IV (11:41)
== END 2024-05-17 12:48 | disposition hospice, home (50) | DRG 871 ==
LOC: IMU 17:16
PROVIDERS: Internal Medicine; ADMITTING PHYSICIAN Hospitalist; CONSULT PHYSICIAN Internal Medicine; CONSULT PHYSICIAN Internal Medicine Cardiovascular Disease; CONSULT PHYSICIAN Internal Medicine Critical Care Medicine; CONSULT PHYSICIAN Psychiatry & Neurology Neurology; CONSULT PHYSICIAN Surgery; EMERGENCY PHYSICIAN Emergency Medicine; FAMILY PHYSICIAN Student in an Organized Health Care Education/Training Program; OTHER PHYSICIAN Neurological Surgery; OTHER PHYSICIAN Student in an Organized Health Care Education/Training Program
PROC: 5A09357 Assistance with Respiratory Ventilation, Less than 24 Consecutive Hours, Continuous Positive Airway Pressure (ICD-10-PCS; 2024-05-15)
DX: A40.8 Other streptococcal sepsis (principal); I50.33 Acute on chronic diastolic (congestive) heart failure; J96.01 Acute respiratory failure with hypoxia; J18.9 Pneumonia, unspecified organism; I13.0 Hypertensive heart and chronic kidney disease with heart failure and stage 1 through stage 4 chronic kidney disease, or unspecified chronic kidney disease; E87.20 Acidosis, unspecified; N17.9 Acute kidney failure, unspecified; F11.20 Opioid dependence, uncomplicated; D61.818 Other pancytopenia; N39.0 Urinary tract infection, site not specified; A04.72 Enterocolitis due to Clostridium difficile, not specified as recurrent; E87.1 Hypo-osmolality and hyponatremia; D68.32 Hemorrhagic disorder due to extrinsic circulating anticoagulants; M48.02 Spinal stenosis, cervical region; R63.30 Feeding difficulties, unspecified; E78.00 Pure hypercholesterolemia, unspecified; F41.9 Anxiety disorder, unspecified; I25.10 Atherosclerotic heart disease of native coronary artery without angina pectoris; K21.9 Gastro-esophageal reflux disease without esophagitis; M19.90 Unspecified osteoarthritis, unspecified site; B95.4 Other streptococcus as the cause of diseases classified elsewhere; N18.30 Chronic kidney disease, stage 3 unspecified; I48.0 Paroxysmal atrial fibrillation; E11.22 Type 2 diabetes mellitus with diabetic chronic kidney disease; E11.51 Type 2 diabetes mellitus with diabetic peripheral angiopathy without gangrene; E11.65 Type 2 diabetes mellitus with hyperglycemia; I89.0 Lymphedema, not elsewhere classified; K80.20 Calculus of gallbladder without cholecystitis without obstruction; E87.6 Hypokalemia; E05.90 Thyrotoxicosis, unspecified without thyrotoxic crisis or storm; I07.1 Rheumatic tricuspid insufficiency; R31.9 Hematuria, unspecified; I44.7 Left bundle-branch block, unspecified; L89.611 Pressure ulcer of right heel, stage 1; L89.152 Pressure ulcer of sacral region, stage 2; R16.1 Splenomegaly, not elsewhere classified; E88.09 Other disorders of plasma-protein metabolism, not elsewhere classified; D50.9 Iron deficiency anemia, unspecified; I95.9 Hypotension, unspecified; G89.4 Chronic pain syndrome; Y95 Nosocomial condition; M54.9 Dorsalgia, unspecified; Z96.642 Presence of left artificial hip joint; I25.2 Old myocardial infarction; Z87.820 Personal history of traumatic brain injury; Z95.0 Presence of cardiac pacemaker; Z11.52 Encounter for screening for COVID-19; Z89.612 Acquired absence of left leg above knee; Z95.1 Presence of aortocoronary bypass graft; Z95.5 Presence of coronary angioplasty implant and graft; Z88.2 Allergy status to sulfonamides; Z79.01 Long term (current) use of anticoagulants; Z79.4 Long term (current) use of insulin; Z79.82 Long term (current) use of aspirin; Z87.19 Personal history of other diseases of the digestive system
CPT/HCPCS: 70450; 70551; 70552; 71045; 72156; 74176; 80048; 80053; 80202; 81003; 81015; 81099; 82248; 82550; 82570; 82607; 82728; 82746; 82947; 82962; 83036; 83605; 83735; 83880; 84300; 84436; 84439; 84443; 85025; 85027; 85652; 86041; 86060; 86063; 86160; 87040; 87045; 87046; 87070; 87077; 87086; 87147; 87205; 87324; 87427; 87449; 87798; 87811; 93005; 93306; 93880; 94640; 94660; 94762; 96361; 96374; 99291; A9575